=== PATIENT | female | born 1985 | race Caucasian/White ===

== ENCOUNTER 2022-07-12 07:44 | Emergency (ER) | payer BC, MEDICARE, MEDICAID, SELFPAY ==
--- NOTE | ~2022-07-12 | XR_ITS ---
Right Shoulder Technique: AP and scapular Y views were obtained. Clinical History: Pain Findings: No fracture or dislocation is seen. Osseous alignment is anatomic. The glenohumeral and acr omioclavicular joint spaces are preserved. Soft tissues are unremarkable. Impression: Unremarkable right shoulder radiographs. Reviewed, dictated and finalized at [facility]. 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
[2022-07-12 07:48] VITALS: BP 111/88; PULSE 108; RESP 16; TEMP 36.4; O2SAT 96
--- NOTE | 2022-07-12 08:57 | ED.GENADULT ---
HPI - General Adult General Chief complaint: Extremity Injury, Upper Stated complaint: right arm pain Time Seen by Provider: 07/12/22 07:55 History of Present Illness HPI narrative: 36-year-old female presenting the emergency department for evaluation of right shoulder pain. Patient states that she works at [employer] and does heavy lifting. Patient reports a few days ago she was having some right shoulder pain and the pain has persisted. Patient reports anterior and posterior right shoulder pain that is worsened with range of motion of her shoulder. Patient states she has increased pain when attempting to lift her right arm over her head. Patient denies any specific incident of injury. Related Data Allergies Allergy/AdvReac Type Severity Reaction Status Date / Time No Known Allergies Allergy Verified 02/13/22 14:30 Review of Systems Review of Systems: CONSTITUTIONAL: Denies fever, chills, or sweats. EYES: Denies visual changes, redness, or discharge. ENT: Denies rhinorrhea, congestion, sore throat, or otalgia. CARDIOVASCULAR: Denies chest pain, palpitations, or edema. RESPIRATORY: Denies cough or dyspnea. GASTROINTESTINAL: Denies abdominal pain, nausea, vomiting, or diarrhea. GENITOURINARY: Denies dysuria or hematuria. SKIN: Denies rash or itching. MUSCULOSKELETAL: See HPI NEUROLOGIC: Denies headache, numbness, or weakness. PMFSH Past Medical History Medical History Acute myeloid leukemia in remission Anxiety Current moderate episode of major depressive disorder without prior episode Hyperlipidemia Mood disorder Tobacco abuse Type 2 diabetes mellitus without complication, without long-term current use of insulin Family History Family History Mother Family history of mental disorder Depression Hypertension Grandparent Cerebrovascular accident Family history of lung cancer Social History Social History Years smoked: 18 Smoking status: Current every day smoker Tobacco type: e-cigarettes/vaping Second hand tobacco smoke exposure: No Alcohol intake: never Substance use: never Substance use type: does not use Exam Narrative: APPEARANCE: Well appearing, no pain, no distress, well-nourished. HEAD: normocephalic, atraumatic. EYES: PERRLA/EOMI, conjunctivae clear. NOSE: Normal no drainage NECK: Supple. No adenopathy, no masses. RESPIRATORY: Airway patent, respirations nonlabored. Clear to auscultation bilaterally, no rales, rhonchi, wheezing. CARDIOVASCULAR: Regular rate and rhythm without murmurs rubs or gallops. ABDOMINAL: Soft, nontender, nondistended, normal bowel sounds MUSCULOSKELETAL: Moves all extremities. Decreased range of motion of right shoulder with active movement, normal range of motion with passive NEURO: Alert. Cranial nerves II through XII intact. Grossly intact SKIN: Warm, dry. Normal Color Course Course Emergency Course: 36-year-old female with right shoulder injury. Patient's job is consistent with a shoulder strain. X-ray shows no acute fracture or dislocation. Patient was advised to take Tylenol and ibuprofen for pain control. Patient was also encouraged of close follow-up with her primary care physician for additional outpatient testing such as an MRI to evaluate for rotator cuff injury. All question concerns were addressed. Patient was comfortable to plan for discharge and close follow-up. Vital Signs Vital signs: Vital Signs Temperature 97.6 F 07/12/22 07:48 Pulse Rate 108 H 07/12/22 07:48 Respiratory Rate 16 07/12/22 07:48 Blood Pressure 111/88 07/12/22 07:48 Pulse Oximetry 96 07/12/22 07:48 Temperature 97.6 F 07/12/22 07:48 Pulse Rate 94 07/12/22 10:11 Respiratory Rate 16 07/12/22 10:11 Blood Pressure 101/86 07/12/22 10:11 Pulse Oximetry 97 07/12/22 1
[2022-07-12 10:11] VITALS: BP 101/86; PULSE 94; RESP 16; O2SAT 97
== END 2022-07-12 10:12 | disposition home or self-care (01) ==
PROVIDERS: Emergency Provider Emergency Medicine; PCP Family Medicine
DX: S46.911A Strain of unspecified muscle, fascia and tendon at shoulder and upper arm level, right arm, initial encounter (principal); F17.210 Nicotine dependence, cigarettes, uncomplicated; F41.9 Anxiety disorder, unspecified; F32.A Depression, unspecified; E78.5 Hyperlipidemia, unspecified; E11.9 Type 2 diabetes mellitus without complications; X50.0XXA Overexertion from strenuous movement or load, initial encounter
CPT/HCPCS: 73030; 99283

== ENCOUNTER 2022-12-12 08:00 | Outpatient (RCR) | payer BC, MEDICARE, SELFPAY ==
[2022-12-12 08:06] VITALS: BMI 32.1
[2022-12-12 09:14] VITALS: BMI 32.1
== END 2023-03-03 10:22 | disposition home or self-care (01) ==
LOC: ANHDMC 08:00
PROVIDERS: PCP Family Medicine; Visit Provider Internal Medicine
DX: E11.9 Type 2 diabetes mellitus without complications (principal); Z71.3 Dietary counseling and surveillance
CPT/HCPCS: 97802

== ENCOUNTER 2022-12-23 09:15 | Outpatient (RCR) | payer BC, MEDICARE, SELFPAY | END 2023-02-24 09:50 | disposition home or self-care (01) | LOC: ANHDMC 09:15 | PROVIDERS: PCP Family Medicine; Visit Provider Internal Medicine | DX: E11.65 Type 2 diabetes mellitus with hyperglycemia (principal); Z71.89 Other specified counseling | CPT/HCPCS: G0108 ==

== ENCOUNTER 2023-01-01 09:55 | Outpatient (CLI) | payer BC, MEDICARE, SELFPAY ==
[2023-01-01 10:58] LABS: Influenza A QL RT-PCR Negative (Negative); Influenza B QL RT-PCR Negative (Negative); RSV RNA, RT-PCR Negative (Negative); SARS-CoV-2 RNA PCR Negative (Negative)
== END 2023-01-01 09:56 | disposition home or self-care (01) ==
PROVIDERS: PCP Family Medicine; Visit Provider Physician Assistant
DX: Z20.822 Contact with and (suspected) exposure to COVID-19 (principal)
CPT/HCPCS: 87637

== ENCOUNTER 2023-03-28 10:43 | Emergency (ER) | payer BC, MEDICARE, SELFPAY ==
[2023-03-28 10:54] VITALS: BP 118/79; PULSE 96; RESP 20; TEMP 36.4; O2SAT 96
--- NOTE | 2023-03-28 12:15 | ED.GENADULT ---
HPI - General Adult General Chief complaint: Unspecified Stated complaint: sore throat, head congestion,ear pain Time Seen by Provider: 03/28/23 11:19 Source: patient Mode of arrival: ambulatory Limitations: no limitations History of Present Illness HPI narrative: Patient is a 37-year-old female who presents to the ED with report of URI symptoms. Patient reports she has been ill for the last 2 weeks. She c/o bilateral ear pain/congestion, sinus pressure, rhinorrhea, nasal congestion, mild cough, body aches, L eye redness/drainage. Patient has previously been seen at an urgent care earlier this week, tested negative for COVID, influenza, strep throat. Prescribed amoxicillin for sinus infection. She has been taking this without relief. She has only tried Tylenol, has not tried anything further for her symptoms. Denies fever, difficulty breathing or feeling short of breath, chest pain, nausea, vomiting. Patient reports history of AML 9 years ago in remission. History of diabetes. She states she has not been taking her medications as usual these last few weeks d/t not feeling well. Related Data Home Medications Medication Instructions Recorded Confirmed insulin lispro-aabc 100 unit/mL 6 unit subcut TID 01/16/23 01/16/23 subcutaneous pen (Lyumjev KwikPen U-100 Insulin) Allergies Allergy/AdvReac Type Severity Reaction Status Date / Time No Known Allergies Allergy Verified 03/28/23 10:46 Review of Systems Review of Systems: CONSTITUTIONAL: Denies fever, chills, or sweats. ENT: See HPI CARDIOVASCULAR: Denies chest pain, palpitations, or edema. RESPIRATORY: See HPI GASTROINTESTINAL: Denies abdominal pain, nausea, vomiting. MUSCULOSKELETAL: Report myalgia. NEUROLOGIC: Denies headache, numbness, or weakness. All systems reviewed & are unremarkable except as noted in HPI and below PMFSH Past Medical History Medical History Acute myeloid leukemia in remission Anxiety Chronic headaches Claustrophobia Coughing Current moderate episode of major depressive disorder without prior episode Depression Diarrhea Hoarseness Hyperlipidemia Light headedness Mood disorder Nausea Tendinitis of right rotator cuff Tobacco abuse Type 2 diabetes mellitus without complication, without long-term current use of insulin Wears glasses Family History Family History Mother Family history of mental disorder Depression Hypertension Grandparent Cerebrovascular accident Family history of lung cancer Other High cholesterol Social History Social History Smoking packs per day: 0.5 Smoking cigarettes per day: 10.0 Years smoked: 19 Smoking pack-years: 9.50 Smoking status: Current every day smoker Tobacco type: cigarettes and e-cigarettes/vaping Second hand tobacco smoke exposure: No Alcohol intake: never Substance use: current Substance use type: marijuana Lack of Transportation: No Lack of Food: Sometimes True Current Housing: I Have Housing Concerned About Future Housing: No Difficulty Paying Gas/Electric Bills: No Difficulty Paying for Meds: No Currently Unemployed: No Education: Associate Degree Difficulty w/ Childcare or Family Care: No Occupation/Education: other Gender identity (if verbalized by the patient): Female Spiritual care concerns: No Agree to blood products: Yes Exam Narrative: GENERAL: Mildly ill appearing, obese with BMI of 30.1, non-toxic, in no acute distress. HEAD: Normocephalic, atraumatic. EYES: Serous drainage noted salvador, L conjunctiva erythematous, R conjunctiva clear. No significant chemosis. PERRL/EOMI ENT: TMs bilaterally appear erythematous and bulging, R > L. No evidence of TM perforation. No swelling or erythema of EAC bilaterally. No drainage. Mucous memb
[2023-03-28] MEDS: IBUPROFEN 600 MG TABLET PO (12:33)
[2023-03-28] MEDS: PSEUDOEPHEDRINE HCL 30 MG TABLET 60 MG PO (12:33)
[2023-03-28] MEDS: ACETAMINOPHEN 500 MG TABLET 1000 MG PO (12:33)
[2023-03-28 12:40] LABS: Basophils Absolute Auto 0.1 K/mm3 (0.0-0.1); Basophils Percent Auto 0.7 % (0.2-1.2); Eosinophils Absolute Auto 0.3 K/mm3 (0-0.3); Eosinophils Percent Auto 2.2 % (0-4.4); Hematocrit 47.1 % (37.0-47.0); Hemoglobin 15.8 g/dL (12.0-15.0); Immature Granulocyte Absolute 0.06 K/mm3 (0.00-0.031); Immature Granulocyte Percent A 0.4 % (0-0.5); Lymphocytes Absolute Auto 4.02 K/mm3 (0.9-3.2); Lymphocytes Percent Auto 25.5 % (18.3-44.2); Mean Corpuscular HGB Conc 33.5 g/dl (32-36); Mean Corpuscular Hemoglobin 28.7 pg (26-34); Mean Corpuscular Volume 85.6 fl (80-100); Mean Platelet Volume 9.7 fl (7.4-10.4); Monocytes Absolute Auto 1.1 K/mm3 (0.1-0.6); Monocytes Percent Auto 6.9 % (2.6-8.5); Neutrophils Absolute Auto 10.1 K/mm3 (1.3-6.7); Neutrophils Percent Auto 64.3 % (45.5-73.1); Platelet Count Result 216 k/mm3 (150-375); Red Cell Distribution Width 13.6 % (11.5-14.5); White Blood Count 15.8 K/mm3 (4.5-10.0)
[2023-03-28 12:50] LABS: Alanine Aminotransferase 26 U/L (6-35); Albumin Level 4.3 g/dL (3.5-5.1); Alkaline Phosphatase 97 U/L (38-126); Anion Gap 11 mmol/L (8-16); Aspartate Amino Transferase 18 U/L (14-36); Bilirubin,Total 0.5 mg/dL (0.2-1.3); Blood Urea Nitrogen 5 mg/dL (7-17); Calcium 9.4 mg/dL (8.4-10.2); Carbon Dioxide 23 mmol/L (22-30); Chloride 106 mmol/L (98-107); Estimated CRCL calculation 157 ml/min; Estimated Glomerular Filt Rate > 60; Glucose 224 mg/dL (65-110); Potassium 3.9 mmol/L (3.4-5.0); Sodium 140 mmol/L (137-145)
== END 2023-03-28 13:24 | disposition home or self-care (01) ==
PROVIDERS: Emergency Provider Physician Assistant; PCP Family Medicine
DX: H66.93 Otitis media, unspecified, bilateral (principal); J06.9 Acute upper respiratory infection, unspecified; H10.9 Unspecified conjunctivitis; C92.01 Acute myeloblastic leukemia, in remission; E11.9 Type 2 diabetes mellitus without complications; E78.5 Hyperlipidemia, unspecified; F32.A Depression, unspecified; F41.9 Anxiety disorder, unspecified; F17.210 Nicotine dependence, cigarettes, uncomplicated; F17.290 Nicotine dependence, other tobacco product, uncomplicated; Z79.4 Long term (current) use of insulin; Z79.84 Long term (current) use of oral hypoglycemic drugs
CPT/HCPCS: 36415; 80053; 85025; 99283; A9270

== ENCOUNTER 2023-05-22 23:38 | Emergency (ER) | payer BC, MEDICARE, MEDICAID, SELFPAY ==
[2023-05-23] VITALS: BP 128/87; PULSE 110; RESP 18; TEMP 36.6; O2SAT 94
[2023-05-23 02:42] VITALS: BP 109/69; PULSE 89; RESP 21; TEMP 36.8; O2SAT 95
[2023-05-23 02:59] LABS: Basophils Absolute Auto 0.1 K/mm3 (0.0-0.1); Basophils Percent Auto 0.4 % (0.2-1.2); Eosinophils Absolute Auto 0.2 K/mm3 (0-0.3); Eosinophils Percent Auto 1.3 % (0-4.4); Hematocrit 46.7 % (37.0-47.0); Hemoglobin 15.5 g/dL (12.0-15.0); Immature Granulocyte Absolute 0.06 K/mm3 (0.00-0.031); Immature Granulocyte Percent A 0.4 % (0-0.5); Lymphocytes Absolute Auto 3.76 K/mm3 (0.9-3.2); Lymphocytes Percent Auto 22.9 % (18.3-44.2); Mean Corpuscular HGB Conc 33.2 g/dl (32-36); Mean Corpuscular Volume 87.3 fl (80-100); Mean Platelet Volume 9.9 fl (7.4-10.4); Monocytes Absolute Auto 1.1 K/mm3 (0.1-0.6); Monocytes Percent Auto 6.5 % (2.6-8.5); Neutrophils Absolute Auto 11.3 K/mm3 (1.3-6.7); Neutrophils Percent Auto 68.5 % (45.5-73.1); Platelet Count Result 218 k/mm3 (150-375); Red Blood Count 5.35 M/mm3 (4.2-5.4); Red Cell Distribution Width 14.1 % (11.5-14.5); White Blood Count 16.4 K/mm3 (4.5-10.0)
[2023-05-23 03:18] LABS: Alanine Aminotransferase 68 U/L (6-35); Albumin Level 4.3 g/dL (3.5-5.1); Alkaline Phosphatase 107 U/L (38-126); Anion Gap 11 mmol/L (8-16); Appearance Urine Turbid (Clear); Aspartate Amino Transferase 34 U/L (14-36); Bacteria Urine Rare /hpf; Bilirubin Urine 1+ (Negative); Bilirubin,Total 0.5 mg/dL (0.2-1.3); Blood Urea Nitrogen 13 mg/dL (7-17); Blood Urine Negative (Negative); Calcium 9.4 mg/dL (8.4-10.2); Carbon Dioxide 23 mmol/L (22-30); Chloride 106 mmol/L (98-107); Color Urine Dark Yellow (Yellow); Estimated CRCL calculation 132 ml/min; Estimated Glomerular Filt Rate > 60; Glucose 262 mg/dL (65-110); Glucose Urine UA 1+ mg/dL (Negative); Ketones Urine Trace mg/dL (Negative); Leukocyte Esterase Ur Negative LEU/UL (Negative); Lipase 63 U/L (23-300); Nitrate Urine Negative (Negative); Potassium 4.1 mmol/L (3.4-5.0); Protein Urine 1+ mg/dL (Negative); RBC Urine 0-2 /hpf (0-2); Sodium 140 mmol/L (137-145); Specific Grav Ur 1.031 (1.001-1.035); Squamous Epithelial Cell Urine Moderate /hpf (Few)
[2023-05-23 03:23] LABS: Influenza A QL RT-PCR Negative (Negative); Influenza B QL RT-PCR Negative (Negative); RSV RNA, RT-PCR Negative (Negative); SARS-CoV-2 RNA PCR Negative (Negative)
[2023-05-23 03:28] LABS: Add Urine Microscopic? YES
--- NOTE | 2023-05-23 03:29 | ED.NAVMDI ---
HPI - Nausea/Vomiting/Diarrhea General Chief complaint: Nausea/Vomiting/Diarrhea Stated complaint: vomiting Time Seen by Provider: 05/23/23 03:08 Source: patient Limitations: no limitations History of Present Illness HPI Narrative: Patient is a 37-year-old female presents to the emergency department complaining of nausea and vomiting for the past 2-3 days with approximately 3 episodes total negative. Nonbloody and food like contents with some stomach acid. Patient is to 45 days of diarrhea that have been watery and brown. Patient denies any abdominal pain, chest pain, cough, fever, melena, hematochezia, dysuria, hematuria, recent injuries, recent illness, sick contacts. Patient admits to a couple days of rhinorrhea and nasal congestion and wants to get checked out for the upper respiratory viruses. Patient denies any new or change medications. Related Data Home Medications Medication Instructions Recorded Confirmed insulin lispro-aabc 100 unit/mL 6 unit subcut TID 01/16/23 05/15/23 subcutaneous pen (Lyumjev KwikPen U-100 Insulin) Allergies Allergy/AdvReac Type Severity Reaction Status Date / Time No Known Allergies Allergy Verified 05/15/23 09:40 Review of Systems Review of Systems: A 10 system review of systems was completed on the patient and is negative except for what is stated in the HPI. Nursing and ancillary documentation was reviewed. [facility] Past Medical History Medical History Acute myeloid leukemia in remission Anxiety Chronic headaches Claustrophobia Coughing Current moderate episode of major depressive disorder without prior episode Depression Diarrhea Hoarseness Hyperlipidemia Light headedness Mood disorder Nausea Tendinitis of right rotator cuff Tobacco abuse Type 2 diabetes mellitus without complication, without long-term current use of insulin Wears glasses Family History Family History Mother Family history of mental disorder Depression Hypertension Grandparent Cerebrovascular accident Family history of lung cancer Other High cholesterol Social History Social History Smoking packs per day: 0.5 Smoking cigarettes per day: 10.0 Years smoked: 19 Smoking pack-years: 9.50 Smoking status: Current every day smoker Tobacco type: cigarettes and e-cigarettes/vaping Second hand tobacco smoke exposure: No Alcohol intake: never Substance use: current Substance use type: marijuana Lack of Transportation: No Lack of Food: Sometimes True Current Housing: I Have Housing Concerned About Future Housing: No Difficulty Paying Gas/Electric Bills: No Difficulty Paying for Meds: No Currently Unemployed: No Education: Associate Degree Difficulty w/ Childcare or Family Care: No Occupation/Education: other Gender identity (if verbalized by the patient): Female Spiritual care concerns: No Agree to blood products: Yes Comments At time of signature, I have reviewed and agree with nursing past medical, surgical, social and family history unless otherwise noted. Please see the nursing chart for further information. There is no relevant family history pertinent to the presenting complaint. Exam Narrative: CONST: No acute distress. Well nourished. HENMT: Head is normocephalic and atraumatic. Moist mucous membranes. No posterior oropharynx erythema. EYES: No conjunctival icterus, injection, or pallor. PERRL. NECK: No meningeal signs. RESP: Able to speak in full sentences. Normal respiratory effort. CTAB. CARDIO: Regular rate. Regular rhythm. 2+ DP and radial pulses bilaterally. GI: Nondistended. No tenderness to palpation. Soft. Negative Metcalf sign. No palpable masses or hernias. : No CVA tenderness to palpation. SKIN: No rashes or lesio
== END 2023-05-23 03:50 | disposition home or self-care (01) ==
PROVIDERS: Emergency Provider Student in an Organized Health Care Education/Training Program; PCP Family Medicine
DX: K52.9 Noninfective gastroenteritis and colitis, unspecified (principal); Z20.822 Contact with and (suspected) exposure to COVID-19; C92.91 Myeloid leukemia, unspecified in remission; E11.9 Type 2 diabetes mellitus without complications; E78.5 Hyperlipidemia, unspecified; F17.210 Nicotine dependence, cigarettes, uncomplicated; F17.290 Nicotine dependence, other tobacco product, uncomplicated; F41.9 Anxiety disorder, unspecified; F32.A Depression, unspecified; F39 Unspecified mood [affective] disorder; Z79.4 Long term (current) use of insulin; Z79.84 Long term (current) use of oral hypoglycemic drugs
CPT/HCPCS: 36415; 80053; 81001; 81025; 83690; 85025; 87086; 87088; 87637; 99283

== ENCOUNTER 2023-06-23 19:45 | Emergency (ER) | payer BC, MEDICARE, MEDICAID, SELFPAY ==
--- NOTE | ~2023-06-23 | XR_ITS ---
Clinical Indication: Cough PA and lateral views of the chest: Comparison: 03/08/2004 Findings: The lungs are clear, without evidence of focal consolidation or pleural effusion. Cardiome diastinal silhouette is within normal limits. Bones and soft tissues are unremarkable. Impression: Normal chest. Reviewed, dictated and finalized at [facility]. RESS INSPECTOR Impression: Normal chest.
[2023-06-23 20:20] VITALS: BP 107/81; PULSE 108; RESP 16; TEMP 36.6; O2SAT 96
[2023-06-24] VITALS (9 sets, daily range): BP systolic 90–116; BP diastolic 61–79; PULSE 82–120; RESP 17–20; TEMP 37; O2SAT 94–99
[2023-06-24 01:11] LABS: Influenza A QL RT-PCR Negative (Negative); Influenza B QL RT-PCR Negative (Negative); RSV RNA, RT-PCR Negative (Negative); SARS-CoV-2 RNA PCR Negative (Negative)
--- NOTE | 2023-06-24 01:18 | ECG_ITS ---
Measurements Intervals Munger Rate: 101 P: 46 PA: 143 QRS: 32 QRSD: 93 T: 58 QT: 334 QTc: 434 Interpretive Statements SINUS TACHYCARDIA NO PREVIOUS ECG AVAILABLE FOR COMPARISON Electronically Signed On 06-24-2023 15:24:12 [employer] by Nini Rodriguez M.D.
--- NOTE | 2023-06-24 01:19 | ED.DIZZY ---
HPI - Dizziness General Chief Complaint: Dizziness Stated Complaint: dizzy/doesnt feel good Time Seen by Provider: 06/24/23 00:47 History of Present Illness HPI Narrative: 37-year-old female with history of type 2 diabetes, hyperlipidemia, remote history of AML in remission reports for evaluation for flu-like symptoms x1 week. Patient is reporting nasal congestion, headache, dizziness, otalgia, sore throat, cough, dyspnea and diarrhea. Denies known fevers, urinary complaints, abdominal pain, chest pain. Reports decreased p.o. intake secondary to not feeling well. Related Data Home Medications Medication Instructions Recorded Confirmed insulin lispro-aabc 100 unit/mL 6 unit subcut TID 01/16/23 05/15/23 subcutaneous pen (Lyumjev KwikPen U-100 Insulin) Allergies Allergy/AdvReac Type Severity Reaction Status Date / Time No Known Allergies Allergy Verified 05/15/23 09:40 Review of Systems Review of Systems: CONSTITUTIONAL: Denies fever, chills, or sweats. EYES: Denies visual changes, redness, or discharge. ENT: Denies rhinorrhea, congestion, sore throat, or otalgia. CARDIOVASCULAR: Denies chest pain, palpitations, or edema. RESPIRATORY: See HPI GASTROINTESTINAL: See HPI GENITOURINARY: Denies dysuria or hematuria. SKIN: Denies rash or itching. MUSCULOSKELETAL: Denies back pain, joint pain, or myalgia. NEUROLOGIC: Denies headache, numbness, or weakness. PSYCHIATRIC: Denies anxiety or depression. [facility] Past Medical History Medical History Acute myeloid leukemia in remission Anxiety Chronic headaches Claustrophobia Coughing Current moderate episode of major depressive disorder without prior episode Depression Diarrhea Hoarseness Hyperlipidemia Light headedness Mood disorder Nausea Tendinitis of right rotator cuff Tobacco abuse Type 2 diabetes mellitus without complication, without long-term current use of insulin Wears glasses Family History Family History Mother Family history of mental disorder Depression Hypertension Grandparent Cerebrovascular accident Family history of lung cancer Other High cholesterol Social History Social History Smoking packs per day: 0.5 Smoking cigarettes per day: 10.0 Years smoked: 19 Smoking pack-years: 9.50 Smoking status: Current every day smoker Tobacco type: cigarettes and e-cigarettes/vaping Second hand tobacco smoke exposure: No Alcohol intake: never Substance use: current Substance use type: marijuana Lack of Transportation: No Lack of Food: Sometimes True Current Housing: I Have Housing Concerned About Future Housing: No Difficulty Paying Gas/Electric Bills: No Difficulty Paying for Meds: No Currently Unemployed: No Education: Associate Degree Difficulty w/ Childcare or Family Care: No Occupation/Education: other Gender identity (if verbalized by the patient): Female Spiritual care concerns: No Agree to blood products: Yes Exam Narrative: GENERAL: Well-appearing, well-nourished, and in no acute distress. HEAD: Normocephalic, atraumatic. EYES: PERRLA and EOMI. ENT: Nares clear, no rhinorrhea or epistaxis. Mucous membranes dry NECK: Supple. CHEST: Clear to auscultation. No respiratory distress. HEART: Regular rate and rhythm. No murmur heard. Normal peripheral pulses. ABDOMEN: Soft, nontender, nondistended, normal active bowel sounds. No guarding, rebound or rigidity. EXTREMITIES: Normal range of motion. No edema. SKIN: Warm, dry, no rash. NEURO: No focal deficits. Alert and oriented x3 Course Vital Signs Vital signs: Vital Signs Temperature 98 F 06/23/23 20:20 Pulse Rate 108 H 06/23/23 20:20 Respiratory Rate 16 06/23/23 20:20 Blood Pressure 107/81 06/23/23 20:20 Pulse Oximetry 96 06/23/23 2
[2023-06-24] MEDS: SODIUM CHLORIDE 0.9% IV 1,000 ML 999 ML IV CONT ×2 (01:40→02:51)
[2023-06-24 01:41] LABS: Basophils Absolute Auto 0.1 K/mm3 (0.0-0.1); Basophils Percent Auto 0.5 % (0.2-1.2); Eosinophils Absolute Auto 0.2 K/mm3 (0-0.3); Eosinophils Percent Auto 0.9 % (0-4.4); Hematocrit 44.9 % (37.0-47.0); Hemoglobin 15.2 g/dL (12.0-15.0); Immature Granulocyte Absolute 0.06 K/mm3 (0.00-0.031); Immature Granulocyte Percent A 0.3 % (0-0.5); Lymphocytes Absolute Auto 5.46 K/mm3 (0.9-3.2); Lymphocytes Percent Auto 27.5 % (18.3-44.2); Mean Corpuscular HGB Conc 33.9 g/dl (32-36); Mean Corpuscular Hemoglobin 28.8 pg (26-34); Mean Platelet Volume 9.5 fl (7.4-10.4); Monocytes Absolute Auto 1.7 K/mm3 (0.1-0.6); Monocytes Percent Auto 8.4 % (2.6-8.5); Neutrophils Absolute Auto 12.4 K/mm3 (1.3-6.7); Neutrophils Percent Auto 62.4 % (45.5-73.1); Platelet Count Result 210 k/mm3 (150-375); Red Blood Count 5.28 M/mm3 (4.2-5.4); Red Cell Distribution Width 13.6 % (11.5-14.5); White Blood Count 19.9 K/mm3 (4.5-10.0)
[2023-06-24] MEDS: KETOROLAC 30 MG/ML VIAL (*BKC) IV PUSH (01:41)
[2023-06-24] MEDS: diphenhydrAMINE HCl INJ 50 MG/ML VIAL 25 MG IV PUSH (01:42)
[2023-06-24] MEDS: PROCHLORPERAZINE EDISYLATE 10 MG/2 ML VIAL IV PUSH (01:42)
[2023-06-24 01:54] LABS: Alanine Aminotransferase 26 U/L (6-35); Albumin Level 4.1 g/dL (3.5-5.1); Alkaline Phosphatase 88 U/L (38-126); Anion Gap 6 mmol/L (8-16); Aspartate Amino Transferase 18 U/L (14-36); Bilirubin,Total 0.6 mg/dL (0.2-1.3); Blood Urea Nitrogen 10 mg/dL (7-17); Calcium 9.3 mg/dL (8.4-10.2); Carbon Dioxide 23 mmol/L (22-30); Chloride 106 mmol/L (98-107); Estimated CRCL calculation 111 ml/min; Estimated Glomerular Filt Rate > 60; Glucose 160 mg/dL (65-110); Magnesium 1.5 mg/dL (1.6-2.3); Potassium 3.2 mmol/L (3.4-5.0); Sodium 135 mmol/L (137-145)
--- NOTE | 2023-06-24 02:01 | PC.NURSE ---
Patient still unable to urinate. Patient politely denied straight catheterization for urine specimen.
[2023-06-24 02:05] LABS: Strep Group A RT-PCR NOT DETECTED (Negative)
[2023-06-24] MEDS: POTASSIUM CHLORIDE 20 MEQ PACKET (FOR LIQUID) 40 MEQ PO (02:06)
[2023-06-24] MEDS: MAGNESIUM SULF 2 GM/WATER 50ML 2 GM/50 ML BAG IVPB (02:07)
[2023-06-24 02:36] LABS: D Dimer 0.33 ug/mL (<0.48)
[2023-06-24 02:39] LABS: Monoscreen Negative (Negative); Negative Monotest Control Negative (Negative); Positive Monotest Control Positive (Positive)
[2023-06-24 03:54] LABS: Appearance Urine Cloudy (Clear); Bacteria Urine 1+ /hpf; Bilirubin Urine Negative (Negative); Blood Urine Negative (Negative); Color Urine Dark Yellow (Yellow); Glucose Urine UA Trace mg/dL (Negative); Ketones Urine Trace mg/dL (Negative); Leukocyte Esterase Ur Negative LEU/UL (Negative); Need Manual Microscopic Reviewed; Nitrate Urine Negative (Negative); Non Pathogenic Casts 0-2; Protein Urine Trace mg/dL (Negative); RBC Urine 0-2 /hpf (0-2); Specific Grav Ur 1.031 (1.001-1.035); Squamous Epithelial Cell Urine Many /hpf (Few); Urobilinogen Urine 0.2 mg/dL (<2.0)
[2023-06-24 03:57] LABS: Add Urine Microscopic? YES
[2023-06-24 04:25] LABS: NT Pro B Type Natriuretic Pept 93 pg/mL (19.9-100)
[2023-06-24] MEDS: AMOXICILLIN/CLAVULANATE K 875-125 MG TAB 1 TABLET PO (04:52)
[2023-06-24] MEDS: AZITHROMYCIN 250 MG TABLET 500 MG PO (04:52)
== END 2023-06-24 04:55 | disposition home or self-care (01) ==
PROVIDERS: Emergency Medicine; Emergency Provider Physician Assistant; PCP Family Medicine
DX: E86.0 Dehydration (principal); E87.6 Hypokalemia; E83.42 Hypomagnesemia; R06.00 Dyspnea, unspecified; Z20.822 Contact with and (suspected) exposure to COVID-19; E11.9 Type 2 diabetes mellitus without complications; E78.5 Hyperlipidemia, unspecified; C92.01 Acute myeloblastic leukemia, in remission; F41.9 Anxiety disorder, unspecified; F32.A Depression, unspecified; F39 Unspecified mood [affective] disorder; F17.210 Nicotine dependence, cigarettes, uncomplicated; F17.290 Nicotine dependence, other tobacco product, uncomplicated; Z79.4 Long term (current) use of insulin; Z79.84 Long term (current) use of oral hypoglycemic drugs
CPT/HCPCS: 36415; 71046; 80053; 81001; 81025; 83735; 83880; 85025; 85380; 86308; 87086; 87637; 87651; 93005; 96361; 96365; 96366; 96375; 99284; A9270; J0780; J1200; J1885; J3475; J7030

== ENCOUNTER 2023-06-25 22:41 | Emergency (ER) | payer BC, MEDICARE, MEDICAID, SELFPAY ==
[2023-06-25 22:42] VITALS: BP 118/68; PULSE 127; RESP 18; TEMP 36.4; O2SAT 96
[2023-06-25 23:02] VITALS: PULSE 122; RESP 15; TEMP 36.5; O2SAT 95
[2023-06-25 23:04] VITALS: O2SAT 93
--- NOTE | 2023-06-25 23:41 | ED.FEVER ---
HPI - Fever General Chief Complaint: Fever Stated Complaint: fever, recent pneumonia dx Time Seen by Provider: 06/25/23 23:38 Source: patient Mode of arrival: ambulatory Limitations: no limitations History of Present Illness HPI Narrative: 37 yo presents with report of a fever of 100.6F measured under the tongue. She had earlier had a temperature of 99F. Earlier this morning she took Nyquil that contained acetaminophen. She has not taken any further anti-pyretic after the fever. She reports directly to the ED because she had been told previously to do so. She does have a history of leukemia diagnosed 10 years ago but in remission for the past 9 years. No longer follows with an oncologist. She was recently diagnosed with dehydration and pneumonia on 06/24. She has been taking her course of antibiotics without missing doses and resting, maintaining her hydration. No new symptoms other than fatigue. Related Data Home Medications Medication Instructions Recorded Confirmed insulin lispro-aabc 100 unit/mL 6 unit subcut TID 01/16/23 05/15/23 subcutaneous pen (Lyumjev KwikPen U-100 Insulin) Allergies Allergy/AdvReac Type Severity Reaction Status Date / Time No Known Allergies Allergy Verified 05/15/23 09:40 [facility] Past Medical History Medical History Acute myeloid leukemia in remission Anxiety Chronic headaches Claustrophobia Coughing Current moderate episode of major depressive disorder without prior episode Depression Diarrhea Hoarseness Hyperlipidemia Light headedness Mood disorder Nausea Tendinitis of right rotator cuff Tobacco abuse Type 2 diabetes mellitus without complication, without long-term current use of insulin Wears glasses Family History Family History Mother Family history of mental disorder Depression Hypertension Grandparent Cerebrovascular accident Family history of lung cancer Other High cholesterol Social History Social History Smoking packs per day: 0.5 Smoking cigarettes per day: 10.0 Years smoked: 19 Smoking pack-years: 9.50 Smoking status: Current every day smoker Tobacco type: cigarettes and e-cigarettes/vaping Second hand tobacco smoke exposure: No Alcohol intake: never Substance use: current Substance use type: marijuana Lack of Transportation: No Lack of Food: Sometimes True Current Housing: I Have Housing Concerned About Future Housing: No Difficulty Paying Gas/Electric Bills: No Difficulty Paying for Meds: No Currently Unemployed: No Education: Associate Degree Difficulty w/ Childcare or Family Care: No Occupation/Education: other Gender identity (if verbalized by the patient): Female Spiritual care concerns: No Agree to blood products: Yes Exam Narrative: GENERAL: Well-appearing, well-nourished, and in no acute distress. HEAD: Normocephalic, atraumatic. EYES: Non injected, non icteric ENT: Nares clear, no rhinorrhea or epistaxis. Bilateral pinna slightly erythematous. NECK: Supple. No meningismus. CHEST: Speaking in complete sentences. No respiratory distress. HEART: Tachycardic rate and rhythm. . ABDOMEN: Soft, nondistended. EXTREMITIES: Normal range of motion. No edema. SKIN: Warm, dry, no rash. NEURO: No focal deficits. Alert and oriented x3. PSYCH: Normal mood and affect. Course Vital Signs Vital signs: Vital Signs Temperature 97.5 F L 06/25/23 22:42 Pulse Rate 127 H 06/25/23 22:42 Respiratory Rate 18 06/25/23 22:42 Blood Pressure 118/68 06/25/23 22:42 Pulse Oximetry 96 06/25/23 22:42 Oxygen Delivery Room Air 06/25/23 22:42 Temperature 97.7 F 06/26/23 00:09 Pulse Rate 104 H 06/26/23 00:09 Respiratory Rate 16 06/26/23 00:09 Blood Pressure 110/72 06/26/23 00:09 Pulse Oximetry 96
[2023-06-25] MEDS: ACETAMINOPHEN 500 MG TABLET 1000 MG PO (23:57)
[2023-06-26 00:09] VITALS: BP 110/72; PULSE 104; RESP 16; TEMP 36.5; O2SAT 96
== END 2023-06-26 00:10 | disposition home or self-care (01) ==
LOC: ANHED 06-26 00:02
PROVIDERS: Emergency Provider Student in an Organized Health Care Education/Training Program; PCP Family Medicine
DX: R50.9 Fever, unspecified (principal); F17.210 Nicotine dependence, cigarettes, uncomplicated; F41.9 Anxiety disorder, unspecified; E11.9 Type 2 diabetes mellitus without complications; F32.A Depression, unspecified; Z79.4 Long term (current) use of insulin
CPT/HCPCS: 99282; A9270

== ENCOUNTER 2024-05-26 10:38 | Outpatient (CLI) | payer MEDICARE, SELFPAY ==
[2024-05-26 20:26] LABS: Creatinine Urine 68.3 mg/dL
[2024-05-26 20:30] LABS: MALB Creatinine Ratio 14.5 mg/g (0-30); Microalbumin Urine Random 9.9 mg/L (0-16.7)
[2024-05-26 20:45] LABS: LDL Cholesterol Direct 88 mg/dL
[2024-05-26 20:57] LABS: Alanine Aminotransferase 74 U/L (6-35); Albumin Level 4.1 g/dL (3.5-5.1); Alkaline Phosphatase 125 U/L (38-126); Anion Gap 13 mmol/L (4-12); Aspartate Amino Transferase 54 U/L (14-36); Bilirubin,Total 0.5 mg/dL (0.2-1.3); Blood Urea Nitrogen 12 mg/dL (7-17); Calcium 9.3 mg/dL (8.4-10.2); Carbon Dioxide 21 mmol/L (22-30); Chloride 104 mmol/L (98-107); Cholesterol 281 mg/dL (0-200); Estimated Glomerular Filt Rate > 60; Glucose 304 mg/dL (65-110); Potassium 4.5 mmol/L (3.4-5.0); Sodium 138 mmol/L (137-145)
[2024-05-26 20:58] LABS: Triglycerides 1445 mg/dL (<150)
[2024-05-26 21:16] LABS: Hemoglobin A1C 12.6 % (<5.7)
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
--- OUTSIDE RECORDS SUMMARY | 2024-05-27 23:18 | XMS_ITS | Clinical Summary ---
Author Organization [facility] Address [address] [place] [address] Care Team Providers Care Ems Director Name Role Phone Fawad Ruffin MD Unavailable [phone] Tyrell Diaz Unavailable Unavailab Mally Edward MD Unavailable [phone] Angelica Watson MD Unavailable [phone] Natalie Tian RN Unavailable UnavailLatha Box MARKING DEVICES ASSEMBLER-COMPUTER LAB PARA PROFESSIONAL Unavailable [phone] Leena Borden HOME APPLIANCE WASHING MACHINE MECHANIC Unavailable Unavailable Flaquita Manning PharmD Unavailable Unavaila Carolina Cheng Unavailable Yana Lelo Lira MD Primary Care Provider [phone] Tarsha Cha MARKING DEVICES ASSEMBLER-GM Unavailable [phone] Socorro Galdamez MARKING DEVICES ASSEMBLER-GM Unavailable [phone] Jennifer Fung MD Unavailable Source Comments [facility],non-owned Affiliates and Associated Physician Practices is amultiple site organization consisting of ambulatory clinics and hospital sitesin [place], [place], [place] and [place]. 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 Early menopause occurring in patient [...] Conj 04/19/2015,02/08/2015, TDAP (7yrs+) 10/30/2015,08/24/2015,06/21/2015 VARICELLA 09/11/2016,08/15/2016 Family History Medical History Relation Name Comments CAD (Coronary Artery Disease) Maternal Grandfather Cancer Maternal Grandfather lung Hypertension Mother Diabetes Neg Hx Thyroid Disease Neg Hx Relation Name Status Comments Maternal Grandfather Mother Social History Tobacco Use Types Packs/Day Years [...] Mass Index 31.53 01/27/2022 3:14 PM CDT Plan of Treatment Health Maintenance Due Date Last Done Comments COVID-19 VACCINE (#1) 07/23/1992 ZOSTER VACCINE (1 of 2) 07/23/2006 DIABETES RETINOPATHY SCREENING 08/04/2017 DIABETES-FOOT EXAM WITH MONOFILAMENT 08/04/2017 PAP SMEAR 07/13/2018 07/14/2015 PNEUMOCOCCAL VACCINE (3 of 3 - PPSV23, PCV20 or PCV21) 06/21/2020 06/21/2015, 04/19/2015, 02/08/2015, Additional history exists MAMMOGRAM 07/17/2021 07/17/2020 DIABETES-HGB A1C 04/29/2022 01/28/2022, , 06/27/2020, Additional history exists DIABETES-SERUM CREATININE 01/28/20232021, 01/27/2022, 11/17/2020, Additional history exists BONE DENSITY TESTING 08/12/2023 08/11/2018, 08/01/2016, 06/07/2015, Additional history exists INFLUENZA VACCINE (#1) 2024 2, 06/29/2019, 05/12/2018, Additional history exists DEPRESSION SCREENING 05/05/2024 DIABETES - URINE PROTEIN SCREENING 05/05/2024 DTAP/TDAP/TD VACCINES (4 - Td or Tdap) 10/29/2025 10/30/2015, 08/24/2015, 06/21/2015 HEPATITIS C SCREENING Completed 03/29/2015 , 01/24/2015, 09/28/2014, Additional history exists HIV SCREENING Completed 04/14/2015, 04/07/2014 HIB VACCINE Aged Out 04/19/2015, 11/2014, 12/10/2014 No longer eligible based on patient's age to complete this topic HEPATITIS B VACCINE Completed 12/28/2015, 08/24/2015, 06/21/2015 MENINGOCOCCAL VACCINE Aged Out 07/22/2017 No [facility] eligible based on patient's age to complete this topic HPV VACCINE Aged Out No longer eligi ble based on patient's age to complete this topic MENINGOCOCCAL (Group B) VACCINE Aged Out No longer eligible based on patient's age to complete this topic Procedures Procedure Name Priority Date/Time Associated Diagnosis Comments BASIC METABOLIC PANEL (CALCIUM TOTAL) AM Draw 01/28/2022 12:04 AM CDT Cough HEMOGLOBIN A1C Routine 01/28/2022 12:04 AM CDT Type 2 diabetes mellitus with diabetic chronic kidney disease, unspecified CKD stage, unspecified whether long-term insulin use (HCC) MAMMO BILAT SCREENING Routine 07/17/2020 8:20 AM CDT Visit for screening mammogram DEXA BONE DENSITY AXIAL SKELETON Routine 08/11/2018 1:28 PM CDT 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) PAP LB RFLX HPV ASCU Routine 07/14/2015 3:26 PM [facility]ER CARVER Abnormal cervical Papanicolaou smear, unspecified abnormal pap finding HIV-1 HIV-2 ANTIGEN/ANTIBODY Routine 04/14/2015 1:14 AM [facility] CAR[facility] HEPATITIS C RNA QUANTITATIVE Routine 03/29/2015 11:23 AM LEATHER CARVER from Last 3 Months or Most Recently Relevant to Health Maintenance Results * (ABNORMAL) HEMOGLOBIN A1C (01/28/2022 12:04 AM CDT) Hemoglobin A1c 10.5(H) <=5.6 % 01/28/2022 8:48 AM CDT [facility] Estimated Average Glucose 255 mg/dL 01/28/2022 8:48 AM CDT [facility] Comment: HbA1c Interpretation: Normal : < 5.7% Pre-diabetes: 5.7-6.4% Diabetes: Equal to or greater than 6.5% Test results diagnostic of diabetes should be repeated for confirmation. Treatment target values recommended by ADA and other clinical organizations should be used to evaluate metabolic control in patients. Reference: [place] [employer], Standards of Care in Diabetes -2020 In patients 70 years and older consider HbA1c target range of 7.0-7.5% (Reference: Mejia Herring et al. JAMDA. 2012) The Sebia assay for the measurement of HbA1c is a National Glycohemoglobin Standardization Program (NGSP) certified method. Blood BLOOD SPECIMEN / Unknown Lab Venipuncture / Unknown 01/28/2022 12:04 AM CDT 01/28/2022 3:25 AM CDT Bandar Vaca PA-C LAB - CHEMISTRY O RDERABLES [facility] [address] [place] [address], [facility] [phone] * (ABNORMAL) BASIC METABOLIC PANEL (CALCIUM TOTAL) (01/28/2022 12:04 AM CDT) Pathologist [facility] BUN 13 7 - 26 mg/dL 01/28/2022 3:52 AM CDT [facility] Creatinine 0.69 0.56 - 0.96 mg/dL 01/28/2022 3:52 AM CDT [facility] Sodium 138 136 - 145 mmol/L 01/28/2022 3:52 AM CDT [facility] Potassium 4.9(H) 3.5 - 4.5 mmol/L 01/28/2022 3:52 AM [facility] Chloride 99 98 - 107 mmol/L 01/28/2022 3:52 AM [facility] CO2 23 22 - 29 mmol/L 01/28/2022 3:52 AM [facility] Glucose 343(H) 70 - 115 mg/dL 01/28/2022 3:52 AM [facility] Calcium 8.5 8.4 - 10.2 mg/dL 01/28/2022 3:52 AM [facility] Anion Gap 21(H) 8 - 18 01/28/2022 3:52 AM [facility] BUN/Creatinine Ratio 19 7 - 23 01/28/2022 3:52 AM [facility] Osmolality Calculated 300 270 - 300 mOsm/kg 01/28/2022 3:52 AM [facility] eGFR by CKD-EPI >90 >=90 mL/min/1.7 3 m2 01/28/2022 3:52 AM [facility] Blood BLOOD SPECIMEN / Unknown Lab Venipuncture / Unknown 01/28/2022 12:04 AM CDT 01/28/2022 3:25 AM CDT Bandar Vaca PA-C LAB - CHEMISTRY O RDERABLES [facility] [address] [place] [address], [facility] [phone] * MAMMO BILAT SCREENING (07/17/2020 8:20 AM CDT) Anatomical Region Laterality Modality Breast Bilateral Mammography 07/17/2020 10:1 7 AM CDT Impressions 07/17/2020 12:43 PM CDT IMPRESSION: ??No mammographic evidence of malignancy. RECOMMENDATION: ??Screening mammography in one year, pending no interval breast concerns. Patient will be notified of the results by lay letter. BI-RADS CATEGORY 2: BENIGN. I, Dr. LALTIO SALDIVAR M.D. have personally reviewed and interpreted [...] ordering physician and is also available on [employer], the Radiology Department's computerized picture archive system [...] was electronically signed by DUANE WHITE D.O. ??on 08/11/2018 2:32 PM . Procedure Note Duane White, DO - 08/11/2018 Examination: Dual energy x-ray absorptiometry of the lumbar spine andhip. 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 Presented today for osteoporosis screening Findings: Detailed data from the exam is sent separately to the ordering physician and is also available on [employer], the Radiology Department's computerized picture archive system [...] ASCU (PO REF LAB) (07/14/2015 3:26 PM [facility]ATHER CARVER) Diagnosis Comment(A) 07/21/2015 2:28 PM CDT [facility] ([facility]) Comment: EPITHELIAL CELL ABNORMALITY. LOW-GRADE SQUAMOUS INTRAEPITHELIAL LESION (LGSIL); MILD DYSPLASIA IS PRESENT. Recommendation Comment(A) 07/21/2015 2:28 PM CDT [facility] ([facility]) Comment:Suggest follow up as clinically appropriate. Specimen Adequacy Comment 07/21/2015 2:28 PM CDT [facility] ([facility]) Comment: Satisfactory for evaluation. ??Endocervical and/or squamous metaplastic cells (endocervical component) are present. Performed by Comment 07/21/2015 2:28 PM CDT [facility] ([facility]) Comment:Aleyda Koo, Cytot echnologist (ASCP) Electronically Signed by Comment 07/21/2015 2:28 PM CDT [facility] ([facility]) Comment:Moriah Brooks MD, Pathologist Comment . 07/21/2015 2:28 PM CDT [facility] ([facility]) Pathologist Provided ICD10 Comment 07/21/2015 2:28 PM CDT [facility] ([facility]) Comment:R87.612 Note Comment 07/21/2015 2:28 PM CDT [facility] ([facility]) Comment: The Pap smear is a screening test designed to aid in the detection of premalignant and malignant conditions of the uterine cervix. ??It is not a diagnostic procedure and should not be used as the sole means of detecting cervical cancer. ??Both false-positive and false-negative reports do occur. Note Comment 07/21/2015 2:28 PM CDT [facility] ([facility]) Comment: The HPV DNA reflex criteria were not met with this specimen result therefore, no HPV testing was performed. Miscellaneous samples (specimen) MICROSCOPIC CYTOLOGIC EXAMINATION OF SMEAR OF SPECIMEN FROM FEMALE GENITAL TRACT PREPARED USING PAPANICOLAOU TECHNIQUE / Unknown Venipuncture / Unknown 07/14/2015 3:26 PM [facility]ATHER CARVER 07/17/2015 11:24 AM CDT Narrative [facility] ([facility]) - 07/21/2015 2:28 PM CDT Performed at: ??[address] ??[id number] Rock Drill Operator: Moriah Brooks MD, Phone: ??[phone] Specimen Comment: Source.............Cervical Specimen Comment: LMP / Prev Treat...QXA=[id number];[place] / BX Specimen Comment: Dates / Results....no Specimen Comment: Other..............Post Menopausal Specimen Comment: No. of containers..01 CYTYC Thin Prep Vial Thom Guzmán MD LAB - PATHOLOGY/CYTO LOGY ORDERABLES [facility] ([facility]) * HIV-1 HIV-2 ANTIGEN/ANTIBODY (04/14/2015 1:14 AM [facility]ATHER CARVER) HIV Antigen/Antibod y 1 & 2 Non-reacti ve Non-react mi [facility] Comment: Neither HIV-1 p24 Antigen nor HIV-1/HIV-2 Antibodies are detected. ? Blood specimen (specimen) BLOOD SPECIMEN / Unknown 04/14/2015 1:14 AM [facility] CARVER 04/14/2015 2:14 AM LEATHER CARVER Edilma Callahan LAB - HEMATOLOGY ORD ERABLES [facility] [address] [place] [address] * HEPATITIS C RNA QUANTITATIVE PCR (03/29/2015 11:23 AM [facility]ATHER CARVER) Hepatitis C Virus RNA PCR Specimen: 1 ml Serum Reference: [id number] Test: Hepatitis C RT-PCR (Quantitative) RESULT Not Detected Reference Range Not Detected INTERPRETATION The quantitative Hepatitis C viral RNA RT-PCR determination was performed on a serum sample and is reported in IU/ml. Hepatitis C viral RNA was not detected. COMMENT The Hepatitis C viral (HCV) RNA analysis utilized a serum sample, real-time reverse home lighting adviser PCR, and is reported as Not Detected, [...] the isolation of HCV RNA with reverse home lighting adviser of genomic HCV RNA followed by real-time PCR in the presence of an unrelated RNA internal control. The internal control ensures that RNA is isolated, and that no general significant inhibitors of the RT-PCR process are present. This analysis was performed using an [place] FDA approved test methodology (Avocado™ RealTime HCV). Test performed at [facility], [address] [place] [address] ??[id number] This case has been personally reviewed and interpreted by the attending (teaching) pathologist. Final Diagnosis performed by Kevin Uribe PHD. Electronically signed 04/07/2015 [facility] Blood specimen (specimen) BLOOD SPECIMEN / Unknown 03/29/2015 11:23 AM [facility] CAR[facility] 03/29/2015 11:40 AM [facility] CAR[facility] Edilma Callahan LAB - CHEMISTRY [facility] from Last 3 Months or Most Recently Relevant to Health Maintenance Advance Directives Documents on File Type Date Recorded Patient Home Comfort Advisor Expl anation Advance Directives and Anthony barbour Will 04/06/2014 12:00 AM * Full Code (Latest Code Status on File) Date Activated Date Inactivated Comments 01/27/2022 9:27 PM 01/30/2022 5:10 PM Care Teams Ems Director Relationship Specialty Start Date End Date Lelo Lopez MD [address] [place] [address] PCP - General 10/20/17 Fawad Ruffin MD Hematology and Oncology 09/23/17 Tyrell Diaz Irene Update Information Referring Physician Oncology 09/25/17 Mally Rogers MD [address] [place] [address] Hematology and Oncology 09/25/17 Angelica Watson MD [facility] [place] [address] Hematology and Oncology 09/25/17 Natalie Tian, RN Registered Nurse 09/25/17 Latha Ordoñez, MARKING DEVICES ASSEMBLER-COMPUTER LAB PARA PROFESSIONAL [address] [facility] [address] [place] [address] Oncology 09/25/17 Leena Borden, HOME APPLIANCE WASHING MACHINE MECHANIC Environmental Health Sanitarian 09/25/17 Flaquita Manning, PharmD 09/25/17 Carolina Oglesby 10/20/17 Tarsha Cha MARKING DEVICES ASSEMBLER-GM [address] DIV OF HEMATOLOGY & [place] [address] Nurse Practitioner Family 10/04/20 Socorro Galdamez MARKING DEVICES ASSEMBLER-GM [address] DIV OF HEMATOLOGY & [place] [address] Nurse Practitioner 10/04/20 Jennifer Fung MD [address] [facility] OF [facility] & [place] [address] Hematology and Oncology 11/23/21
--- OUTSIDE RECORDS SUMMARY | 2024-05-27 23:20 | XMS_ITS | Encounter Summary ---
Author Organization [facility] Address [address] [address] [place] [address] Care Team Providers Care Ms Sql Developer Name Role Phone Unknown, Provider Primary Care Provider UnavailFawad Atwood MD Unavailable [phone] Kary Logan RN Unavailable Unavailab Tyrell Reed Unavailable Unavailab Mally Edward MD Unavailable [phone] Angelica Watson MD Unavailable Livier Ying RN Unavailable Unavailable Natalie Tian RN Unavailable UnavailLatha Box PROOF OPERATOR-VOLLEYBALL COMMENTATOR Unavailable [phone] Kary Logan RN Unavailable Unavailab Lelo Greene PROOF OPERATOR-DESKIDDING MACHINE OPERATOR Unavailable [phone] Theodore Oswald PA-C Unavailable Unavail able Meghan Alexander CHICLE GRINDER FEEDER Unavailable Unavailable Leena Borden NETWORK SYSTEMS ADMINISTRATOR Unavailable Unavailable Flaquita Manning PharmD Unavailable UnavailMeghan Siddiqi PharmD Unavailable UnavailAleah Cormier PROOF OPERATOR-DESKIDDING MACHINE OPERATOR Unavailable [phone] Selma Garcia RN Unavailable Unavailable Rody King RN Unavailable UnavailAron Jolley RN Unavailable Unavailable Ligia Rivera MA Unavailable Unavailable Ani Lira Unavailable Unavailable Carolina Oglesby Unavailable Yana Lelo Lira MD Primary Care Provider Марина Lebron Unavailable Unavailable Tarsha Cha PROOF OPERATOR-DESKIDDING MACHINE OPERATOR Unavailable [phone] Socorro Galdamez PROOF OPERATOR-DESKIDDING MACHINE OPERATOR Unavailable [phone] Jennifer Fung MD Unavailable Encounter Details Date Type Department Care Team (Late st Contact Info) Description 09/14/2014 Lab Requisition [facility] - Lab Cytogenetics [address] [place] [address] Juanito Pimentel MD [address] [place] [address] AML (acute myeloblastic leukemia) (HCC) Social History Tobacco Use Types Packs/Day Years Used Date Smoking Tobacco: Never Assessed Sex and Gender Information Value Date Recorded Sex Assigned at Not on file Gender Identity Not on file Sexual Orientation Not on file documented as of this encounter Plan of Treatment Not on file documented as of this encounter Procedures Procedure Name Priority Date/Time Associated Diagnosis Comments CYTOGENETICS CANCER PANEL Routine 09/14/2014 12:00 AM CDT AML (acute myeloblastic leukemia) [ICD-9-CM] documented in this encounter Results * CYTOGENETICS CANCER PANEL (09/14/2014 12:00 AM CDT) Indication for Study 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 The remaining percentage of cells had one signal of X of unknown origin in less than 1% of cells. No chromosome analysis was performed because 99% of interphase cells were found to be of donor origin. 5 5:42 PM [facility] Disclaimer *This test was developed, and its performance characteristics determined by [facility] Molecular Cytogenetics Laboratory as required by CLIA '88 Regulations. It has not been cleared or approved for specific uses by the U.S. Food and Drug Administration. The FDA has determined that such clearance or approval is not necessary. This test is used for clinical purposes. It should not be reported as investigational or for research. --------- Notes for FISH probes: 1- At the pretreatment level, the cutoff values for trisomy is 1%, dual breakapart is 3 to 5%, double fusion is 1%, and monosomy/deletion is 5 to 8% for no FFPE specimen and 20% for FFPE specimen. ??Efficiency of the probe intensity was acceptable overall. 2- At the post-treatment level, any identified percentage found below the pretreatment cutoff values could not be interpreted unequivocally and needs to be correlated with clinicopathological and clinical findings. At the post treatment level, a low percentage could either represent an actual minimal residual disease or an actual nature of normal cell division. 3- Cutoff values are combined for all different probes forming a range of percentages which covers low/high ends of each probe that fluctuate due to environmental conditions. Percentages that are close to the cutoff values have to be interpreted in correlation with clinicopathological and clinical findings. 4- An additional validation is performed by correlating pathology with cytogenetic findings. 5 5:42 PM [facility] Historical Cytogenomic Report [id number] from 08/01/2014 Results Analysis of 500 interphase cells from the bone marrow hybridized to dual labeled X and Y specific alpha satellite probes* showed the following results: nuc aidan //(DXZ1,DYZ3)x1[499/ 500] 99% donor . Interpretation Fluorescence in-situ hybridization study using X(DXZ1) and Y(DYZ1/DYZ3) specific alpha satellite probes showed 99% XY (donor cells) and 0% XX (patient cells). The remaining percentage of cells had one signal of X of unknown origin in less than 1% of cells. No chromosome analysis was performed because 99% of interphase cells were found to be of donor origin. at 1158 . Comment *This test was developed, and its performance characteristics determined by [facility] Cytogenetics Laboratory as required by CLIA '88 Regulations. It has not been cleared or approved for specific uses by the U.S. Food and Drug Administration. The FDA has determined that such clearance or approval is not necessary. This test is used for clinical purposes. It should not be reported as investigational or for research. --------- Notes for FISH probes: 1- At the pretreatment level, the cutoff values for trisomy is 1%, dual breakapart is 3 to 5%, double fusion is 1%, and monosomy/deletion is 5 to 8% for no FFPE specimen and 20% for FFPE specimen. Efficiency of the probe intensity was acceptable overall. 2- At the post-treatment level, any identified percentage found below the pretreatment cutoff values could not be interpreted unequivocally and needs to be correlated with clinicopathological and clinical findings. At the post treatment level, a low percentage could either represent an actual minimal residual disease or an actual nature of normal cell division. 3- Cutoff values are combined for all different probes forming a range of percentages which covers low/high ends of each probe that fluctuate due to environmental conditions. Percentages that are close to the cutoff values have to be interpreted in correlation with clinicopathological and clinical findings. 4- An additional validation is performed by correlating pathology with cytogenetic findings. . Historical Cytogenomic Report [id number] on 07/11/2014 Results Analysis of 500 interphase cells from the peripheral oncology blood hybridized to dual labeled X and Y specific alpha satellite probes* showed the following results: nuc aidan(DXZ1x2)[2/500]// (DXZ1,DYZ3)x1[495/50 0] 99% donor Interpretation Fluorescence in-situ hybridization study using X(DXZ1) and Y(DYZ1/DYZ3) specific alpha satellite probes showed 99% XY (donor cells) and less than 1% XX (patient cells). The remaining percentage of cells had one signal of X of unknown origin in less than 1% of cells. No chromosome analysis was performed because 99% of interphase cells were found to be of donor origin. 15-321 on 06/24/2014 Results: Analysis of 500 interphase cells from the peripheral oncology blood hybridized to dual labeled X and Y specific alpha satellite probes* showed the following results: nuc aidan(DXZ1x2)[5/500]// (DXZ1,DYZ3)x1[493/50 0] 98% donor Interpretation: Fluorescence in-situ hybridization study using X(DXZ1) and Y(DYZ1/DYZ3) specific alpha satellite probes showed 98% XY (donor cells) and 1% XX (patient cells). The remaining percentage of cells had one signal of X of unknown origin in less than 1% of cells. No chromosome analysis was performed because 98% of interphase cells were found to be of donor origin. at [phone] on 05/03/2014 Results: Fluorescence In-Situ Hybridization (FISH): Analysis of 500 interphase cells hybridized with specific labeled fluorescent probes*: break apart MLL probes* directed onto 11q23 showed the following results: nuc aidan (MLLx2)[467/500] Normal Interpretation: To rule out minimal residual disease of the previously identified clonal abnormality (see below;[id number]), FISH was performed using specific probes* as listed in the result section. FISH was negative indicating a possible disease remission. The previous study ([id number])showed a separation of the MLL signals in less than 1% of cells. Clinicopathological correlation is suggested. at 1715 on 04/20/2014 Results: Fluorescence In-Situ Hybridization (FISH): Analysis of 500 interphase cells hybridized with specific labeled fluorescent probes*: break apart MLL probes* directed onto 11q23 showed the following results: nuc aidan (MLLx2)(5'MLL sep 3'MLLx1)[4/500] Abnormal showing MLL abnormality in less than 1% of cells. Interpretation: To rule out a minimal residual disease of the previously identified clonal abnormality (see below; ), FISH was performed using specific probes* as listed in the result section. 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 FISH results indicate the continued presence of the abnormal clone at less than 1%. This percentage is below the cutoff value of dual breakapart (3 to 5%) in cases of pretreatment. Therefore, an interpretation of the present finding has to be done in correlation with other clinicopathological findings. The previous study ( ) showed a separation of the signals in 85% of cells. at 2006 on 04/06/2014 Results: Fluorescence In-Situ Hybridization (FISH): Analysis of 200 interphase cells hybridized with dual labeled dual fusion probes BCR/ABL1 probes* directed onto 22q11.2/9q34 and PML/CAM directed onto 15q24/17q21 specific fluorescent labeled probes* showed the following results: nuc aidan(ABL1,BCR)x2[185/ 200],(PML,CAM)x2[18 7/200] Normal Fluorescence In-Situ Hybridization (FISH): Analysis of 100 to 200 interphase cells hybridized with specific labeled fluorescent probes*: break apart MLL and CBFB probes* directed onto 11q23 and 16q22, dual labeled probes* D5S23/Z4W442 directed onto 5p15.2/5q31, dual labeled probes* CEP7/Q4B822 directed onto 7 cent/7q31, dual labeled CEP8/N12X159 directed onto 8cent/20q11.2, and dual labeled dual fusion ETO/AML1 directed onto 8q22/21q22 showed the following results: nuc aidan (EVI1x2)[196/200],(D 5S23,W5R969,EGR1)x2[ 197/200],(D7Z1,D7S48 6)x2[195/200],(CEP8, Z80Z053)x2[187/200], (ETO,AML1)x2[190/200 ],(MLLx2)(5'MLL sep 3'MLLx21)[85/100],(F OXO1x2)[192/200],(CB FBx2)[190/200] Abnormal showing MLL abnormality in 85% of cells. 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 Chromosome analysis and FISH of the remaining probes of the AML panel are in progress. FISH of AML was positive for MLL showing a seperation of the signals in 85% of cells indicating a translocation involving 11q23. FISH of all other probes was negative. Rearrangement involving MLL is found in ANLL and ALL. MLL translocation in ANLL is often associated with AML-M5 or M4. Overall, the prognostic association is unfavorable. Clinicopathological correlation is suggested. Chromosome analysis is in progress to determine the partner of 11q23 rearrangement. 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 The 4 remaining cells appeared normal. This type of translocation is associated with AML-M4 or M5. Similar translocation but with a breakpoint at 19p13.3 is associated with ALL. Clinicopathological correlation is suggested. 5 5:42 PM CDT [facility] Client Information [facility] ??- ??[id number] [facility] Lab Numbers: [id number] chrom, [id number] FISH 5 5:42 PM CDT [facility] Other BONE MARROW SPECIMEN / Unknown 09/14/2014 09/14/2014 3:49 PM CDT Juanito Pimentel MD LAB - PATHOLOGY/CYTO LOGY ORDERABLES Performing Organization Address City/State/[facility] Co de Phone Number [facility] [place] [address] documented in this encounter Visit Diagnoses Diagnosis AML (acute myeloblastic leukemia) (HCC) Acute myeloid leukemia, without mention of having achieved remission documented in this encounter Additional Health Concerns Infection Onset Date Last Indicated Resolved Time COVID-19 Under Investigation 01/27/2022 01/27/2022 01/27/2022 9:08 PM CDT COVID-19 Under Investigation 01/28/2022 01/28/2022 01/28/2022 3:39 PM CDT documented as of this encounter Care Teams Ms Sql Developer Relationship Specialty Start Date End Date Unknown, Provider PCP - General 08/18/17 10/19/17 Lelo Lopez MD [address] [place] [address] PCP - General 10/20/17 Fawad Ruffin MD Hematology and Oncology 09/23/17 Kary Logan, RN 09/23/17 09/24/17 Tyrell Diaz Irene Update Information Referring Physician Oncology 09/25/17 Mally Rogers MD [address] [place] [id number] Hematology and Oncology 09/25/17 Angelica Watson MD [address] [place] [id number] Hematology and Oncology 09/25/17 Livier Ying, RN 09/25/17 11/22/20 Natalie Tian, RN Registered Nurse 09/25/17 Latha Ordoñez, PROOF OPERATOR-VOLLEYBALL COMMENTATOR [address] [place] [address] [address] [address] Oncology 09/25/17 Kary Logan, RN 09/25/17 11/22/20 Lelo Becerra, PROOF OPERATOR-DESKIDDING MACHINE OPERATOR [address] [place] [address] [address] [address] Family Medicine 09/25/17 11/22/20 Theodore Oswald PA-C [address] [place] [address] [address] [address] Physician Clinical Admissions Manager 09/25/17 0 Meghan Alexander, CHICLE GRINDER FEEDER Power Reactor Operator 09/25/17 11/22/20 Leena Borden CSW Power Reactor Operator 09/25/17 Flaquita Manning, PharmD 09/25/17 Meghan Maya, PharmD 09/25/17 06/30/19 Aleah Giordano APRN-DESKIDDING MACHINE OPERATOR Family Medicine 09/25/17 11/22/20 Selma Garcia, VALERIA 10/20/17 11/22/20 Rody King, VALERIA 10/20/17 11/22/20 Aron Powell, VALERIA 10/20/17 06/30/19 Ligia Rivera MA 10/20/17 06/30/19 Ani Lira 10/20/17 11/22/20 Carolina Oglesby 10/20/17 Марина Lebron Hoisting Pile Driving Engineer Psychiatry 10/20/17 08/10/18 Tarsha Cha APRN-DESKIDDING MACHINE OPERATOR [address] DIV OF HEMATOLOGY [facility] [place] [address] Nurse Practitioner Family 10/04/20 Socorro Galdamez APRN-DESKIDDING MACHINE OPERATOR [address] DIV OF HEMATOLOGY [facility] [place] [address] Nurse Practitioner 10/04/20 Jennifer Fung MD [address] DIV OF HEMATOLOGY & [place] [address] Hematology and Oncology 11/23/21 documented as of this encounter
--- OUTSIDE RECORDS SUMMARY | 2024-05-27 23:20 | XMS_ITS | Patient Health Summary ---
Author Organization [facility] Address [address] [place] [address] Care Team Providers Care Ultrasound Specialist Name Role Phone Fawad Ruffin MD Unavailable [phone] Tyrell Diaz Unavailable Unavailab Mally Edward MD Unavailable [phone] Angelica Watson MD Unavailable [phone] Natalie Tian RN Unavailable UnavailLatha Box PLANER MILL GRADER-PREMIUM AUDITOR Unavailable [phone] Leena Borden VICE PRESIDENT OF DEVELOPMENT Unavailable Unavailable Flaquita ManningD Unavailable Unavaila Carolina Cheng Unavailable Yana Lelo Lira MD Primary Care Provider [phone] Tarsha Cha PLANER MILL GRADER-CAPITAL CAMPAIGN FUNDRAISER Unavailable [phone] Socorro Galdamez PLANER MILL GRADER-CAPITAL [employer]PAIGN FUNDRAISER Unavailable [phone] Jennifer Fung MD Unavailable Note from [facility] in [place],non-owned Affiliates and Associated Physician Practices is amultiple site organization consisting of ambulatory clinics and hospital sitesin [place], [place], [place] and [place]. This disclosure is being madepursuant to the Care Everywhere program and may not contain all information available regarding this patient. Last updated 18.[facility] Allergies No known active allergies Medications * Be aware that medications may not be up to date on this document. Alwaysverify current medications with the patient. * norethindrone-ethinyl estradiol (OVCON-35, 28,) 0.4-35 MG-MCG tablet(Started 07/14/2015) Take 1 Tab by mouth once daily 4 refills left * metFORMIN (GLUCOPHAGE) 500 MG tablet Take 1,000 mg by mouth 2 times daily with morning and evening meal * VENTOLIN HFA 108 (90 BASE) MCG/ACT inhaler(Started 07/13/2017) Inhale 2 puffs by mouth every 4 hours as needed * melatonin 5 MG tablet(Started 05/01/2016) Take 10 mg by mouth at bedtime * vitamin D3 (CHOLECALCIFEROL) 1000 UNITS tablet Take 2,000 Units by mouth once daily * glimepiride (AMARYL) 2 MG tablet(Started 08/11/2018) Take 1 tablet by mouth daily with breakfast * Potassium 99 MG tablet Take 99 mg by mouth once daily * simvastatin (ZOCOR) 40 MG tablet Take 40 mg by mouth at bedtime * SITagliptin (JANUVIA) 100 MG tablet Take 100 mg by mouth once daily * nicotine (NICODERM CQ) 14 MG/24HR patch(Started 06/27/2020) Apply 1 (one) patch to skin once daily 3 refills by 06/27/2021 * fluconazole (DIFLUCAN) 200 MG tablet(Started 07/04/2020) One by mouth every other day for three doses. 1 refill by 07/04/2021 * nystatin/triamcinolone (MYCOLOG) 611305-3.1 UNIT/GM-% ointment(Started 07/04/2020) Apply to external vulvar tissues twice daily for two weeks, then daily for two weeks. 60 g SEE NOTE 1 refill by 07/04/2021 * UNIFINE PENTIPS PLUS 32G X 4 MM MISC(Started 09/19/2020) USE DAILY DIRECTED * metFORMIN (GLUCOPHAGE) 1000 MG tablet(Started 08/22/2020) TAKE 1 TABLET BY MOUTH TWICE DAILY WITH THE MORNING AND EVENING MEAL * nystatin (MYCOSTATIN) 609480 UNIT/GM ointment(Started 07/04/2020) * triamcinolone acetonide (KENALOG) 0.1 % ointment(Started 07/04/2020) * SITagliptin (JANUVIA) 100 MG tablet Take 100 mg by mouth once daily * clonazePAM (KlonoPIN) 2 MG tablet Take 2 mg by mouth at bedtime Reasons: Feeling Anxious * acetaminophen (Tylenol) 325 MG tablet(Started 01/30/2022) Take 2 (two) tablets by mouth every 6 hours as needed Maximum allowable Acetaminophen amount = 4 Grams (4000 mg) / 24 hours. 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 Early menopause occurring in patient age younger than 45 years 08/08/2017 Restrictive lung disease 08/08/2017 Status post allogeneic bone marrow transplant Type 2 diabetes mellitus 08/08/2017 Abnormal Pap smear of cervix 07/14/2015 Resolved Problems Problem Noted Date Diagnosed Date Resolved Date Cough 01/27/2022 02/24/2022 Viral pneumonia 01/27/2022 02/26/2022 Fever 08/08/2017 08/22/2017 Severe episode of recurrent major depressive disorder, 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 (FLUZONE HIGH-DOSE QUADRIVALENT; 65Y+), 0.7 ML (HD-IIV4)(Given 06/29/2019, 05/12/2018, 07/22/2017) * INFLUENZA VACCINE, QUADR. (FLUZONE; FLULAVAL; FLUARIX; AFLURIA QUADRIVALENT; 6MO+), 0.5 ML (IIV4)(Given 01/30/2022) * MENINGOCOCCAL CONJUGATE (MCV4P)(Given 07/22/2017) * MMR(Given 08/15/2016) * PNEUMOCOCCAL PPSV23(Given 06/21/2015) * POLIO IPV(Given 10/30/2015, 08/24/2015, 06/21/2015) * Pneumococcal Pcv13 Conj(Given 04/19/2015, 02/08/2015, 12/10/2014) * TDAP (7yrs+)(Given 10/30/2015, 08/24/2015, 06/21/2015) * VARICELLA(Given 09/11/2016, 08/15/2016) Social History Tobacco Use Types Packs/Day Years [...] Mass Index 31.53 01/27/2022 3:14 PM CDT Procedures * GLUCOSE - POINT OF CARE(Performed 01/30/2022) * CARDIAC EKG ORDER(Performed 01/30/2022) * GLUCOSE - POINT OF CARE(Performed 01/30/2022) * DIFFERENTIAL MANUAL(Performed 01/30/2022) Performed for Cough * PHOSPHORUS BLOOD(Performed 01/30/2022) Performed for Cough * MAGNESIUM BLOOD(Performed 01/30/2022) Performed for Cough * CBC W AUTO DIFFERENTIAL(Performed 01/30/2022) Performed for Cough * GLUCOSE - POINT OF CARE(Performed 01/29/2022) * GLUCOSE - POINT OF CARE(Performed 01/29/2022) * GLUCOSE - POINT OF CARE(Performed 01/29/2022) * GLUCOSE - POINT OF CARE(Performed 01/29/2022) * GLUCOSE - POINT OF CARE(Performed 01/29/2022) * GLUCOSE - POINT OF CARE(Performed 01/29/2022) * DIFFERENTIAL MANUAL(Performed 01/29/2022) Performed for Cough * PHOSPHORUS BLOOD(Performed 01/29/2022) Performed for Cough * MAGNESIUM BLOOD(Performed 01/29/2022) Performed for Cough * CBC W AUTO DIFFERENTIAL(Performed 01/29/2022) Performed for Cough * GLUCOSE - POINT OF CARE(Performed 01/28/2022) * GLUCOSE - POINT OF CARE(Performed 01/28/2022) * GLUCOSE - POINT OF CARE(Performed 01/28/2022) * RESPIRATORY PANEL WITH SARS-COV-2 BY PCR (STL)(Performed 01/28/2022) Performed for Pneumonia due to infectious organism, unspecified laterality, unspecified part of lung * GLUCOSE - POINT OF CARE(Performed 01/28/2022) * GLUCOSE - POINT OF CARE(Performed 01/28/2022) * CULTURE BLOOD(Performed 01/28/2022) Performed for Pneumonia due to infectious organism, unspecified laterality, unspecified part of lung * TROPONIN I(Performed 01/28/2022) Performed for Cough * CULTURE BLOOD(Performed 01/28/2022) Performed for Pneumonia due to infectious organism, unspecified laterality, unspecified part of lung * STREP PNEUMONIAE ANTIGEN URINE(Performed 01/28/2022) Performed for Cough * LEGIONELLA ANTIGEN URINE(Performed 01/28/2022) Performed for Cough * REJECTED SPUTUM GRAM STAIN(Performed 01/28/2022) Performed for Cough * MYCOPLASMA PNEUMONIAE PCR(Performed 01/28/2022) Performed for Cough * DIFFERENTIAL MANUAL(Performed 01/28/2022) Performed for Cough * PROCALCITONIN LEVEL(Performed 01/28/2022) Performed for Pneumonia due to infectious organism, unspecified laterality, unspecified part of lung * HEMOGLOBIN A1C(Performed 01/28/2022) Performed for Type 2 diabetes mellitus with diabetic chronic kidney disease, unspecified CKD stage,unspecified whether product support sales representative insulin use (HCC) * PHOSPHORUS BLOOD(Performed 01/28/2022) Performed for Cough * MAGNESIUM BLOOD(Performed 01/28/2022) Performed for Cough * CBC W AUTO DIFFERENTIAL(Performed 01/28/2022) Performed for Cough * BASIC METABOLIC PANEL (CALCIUM TOTAL)(Performed 01/28/2022) Performed for Cough * GLUCOSE - POINT OF CARE(Performed 01/27/2022) * SARS-COV-2 (COVID-19)+INFLU A+B PCR RAPID(Performed 01/27/2022) Performed for Cough * XR CHEST 2VW(Performed 01/27/2022) Performed for Cough * DIFFERENTIAL MANUAL(Performed 01/27/2022) * BLOOD GASES CHASE + COOX PANEL(Performed 01/27/2022) * TROPONIN I(Performed 01/27/2022) * HCG BETA BLOOD QUANTITATIVE(Performed 01/27/2022) * COMPREHENSIVE METABOLIC PANEL(Performed 01/27/2022) * CBC W AUTO DIFFERENTIAL(Performed 01/27/2022) * EKG 12-LEAD(Performed 01/27/2022) Performed for Cough, Hypoxia * CHIMERISM CD33/CD66B CELL ANALYSIS(Performed 11/17/2020) Performed for Status post allogeneic bone marrow transplant (HCC), Acute myeloid leukemia in remission (HCC) * CHIMERISM CD3 CELL ANALYSIS(Performed 11/17/2020) Performed for Status post allogeneic bone marrow transplant (HCC), Acute myeloid leukemia in remission (HCC) * DIFFERENTIAL MANUAL(Performed 11/17/2020) Performed for Acute myeloid leukemia in remission (HCC) * PHOSPHORUS BLOOD(Performed 11/17/2020) Performed for Acute myeloid leukemia in remission (HCC) * MAGNESIUM BLOOD(Performed 11/17/2020) Performed for Acute myeloid leukemia in remission (HCC) * CBC W AUTO DIFFERENTIAL(Performed 11/17/2020) Performed for Acute myeloid leukemia in remission (HCC) * COMPREHENSIVE METABOLIC PANEL(Performed 11/17/2020) Performed for Acute myeloid leukemia in remission (HCC) * HEMOGLOBIN A1C(Performed 11/17/2020) * MAMMO BILAT SCREENING(Performed 07/17/2020) Performed for Visit for screening mammogram * SUSCEPTIBILITY YEAST(Performed 07/04/2020) * CULTURE YEAST WITH DIRECT FLUORESCENT TANA(Performed 07/04/2020) Performed for Yeast infection involving the vagina and surrounding area * WET PREP - POINT OF CARE (AMB) [facility]U(Performed 07/04/2020) Performed for Yeast infection involving the vagina and surrounding area * PH FLUID - POCT (AMB) SLU(Performed 07/04/2020) Performed for Yeast infection involving the vagina and surrounding area * FUNGUS TANA - POINT OF CARE (AMB) [facility]U(Performed 07/04/2020) Performed for Yeast infection involving the vagina and surrounding area * DIFFERENTIAL MANUAL(Performed 06/27/2020) Performed for Acute myeloid leukemia in remission (HCC) * PHOSPHORUS BLOOD(Performed 06/27/2020) Performed for Acute myeloid leukemia in remission (HCC) * MAGNESIUM BLOOD(Performed 06/27/2020) Performed for Acute myeloid leukemia in remission (HCC) * CBC W AUTO DIFFERENTIAL(Performed 06/27/2020) Performed for Acute myeloid leukemia in remission (HCC) * COMPREHENSIVE METABOLIC PANEL(Performed 06/27/2020) Performed for Acute myeloid leukemia in remission (HCC) * HEMOGLOBIN A1C(Performed 06/27/2020) Performed for 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, without long-term current use of insulin ([facility]) * T4 FREE(Performed 06/27/2020) Performed for Hypothyroidism, unspecified type * TSH(Performed 06/27/2020) Performed for Hypothyroidism, unspecified type * IR CENTRAL LINE REMOVAL(Performed 01/31/2020) Performed for Status post allogeneic bone marrow transplant ([facility]) * HCG URINE QUALITATIVE - POCT (IP) [facility](Performed 01/31/2020) * HEMOGLOBIN A1C(Performed 12/28/2019) Performed for Type 2 diabetes mellitus with hyperosmolar coma, unspecified whether product support sales representative insulin use ([facility]) * PHOSPHORUS BLOOD(Performed 12/28/2019) Performed for Acute myeloid leukemia in remission ([facility]) * MAGNESIUM BLOOD(Performed 12/28/2019) Performed for Acute myeloid leukemia in remission (HCC) * CBC W AUTO DIFFERENTIAL(Performed 12/28/2019) Performed for Acute myeloid leukemia in remission (HCC) * COMPREHENSIVE METABOLIC PANEL(Performed 12/28/2019) Performed for Acute myeloid leukemia in remission (HCC) * PROTEIN URINE RANDOM QUANTITATIVE(Performed 06/29/2019) Performed for Status post allogeneic bone marrow transplant ([facility]) * TSH(Performed 06/29/2019) Performed for Prediabetes , Status post allogeneic bone marrow transplant ([facility]) * DIFFERENTIAL MANUAL(Performed 06/29/2019) Performed for Acute myeloid leukemia in remission (HCC) * PHOSPHORUS BLOOD(Performed 06/29/2019) Performed for Acute myeloid leukemia in remission (HCC) * MAGNESIUM BLOOD(Performed 06/29/2019) Performed for Acute myeloid leukemia in remission (HCC) * CBC W AUTO DIFFERENTIAL(Performed 06/29/2019) Performed for Acute myeloid leukemia in remission (HCC) * COMPREHENSIVE METABOLIC PANEL(Performed 06/29/2019) Performed for Acute myeloid leukemia in remission (HCC) * T4 FREE(Performed 06/29/2019) Performed for Acute myeloid leukemia in remission (HCC) * ECHO COMPLETE(Performed 06/29/2019) Performed for Status post allogeneic bone marrow transplant ([facility]) * PFT-LAB(Performed 06/29/2019) * VITAMIN D 25-HYDROXY(Performed 05/04/2019) Performed for Acute myeloid leukemia in remission (HCC) * PHOSPHORUS BLOOD(Performed 05/04/2019) Performed for Acute myeloid leukemia in remission (HCC) * MAGNESIUM BLOOD(Performed 05/04/2019) Performed for Acute myeloid leukemia in remission (HCC) * CBC W AUTO DIFFERENTIAL(Performed 05/04/2019) Performed for Acute myeloid leukemia in remission (HCC) * COMPREHENSIVE METABOLIC PANEL(Performed 05/04/2019) Performed for Acute myeloid leukemia in remission (HCC) * HEMOGLOBIN A1C(Performed 05/04/2019) Performed for Acute myeloid leukemia in remission (HCC) * DIFFERENTIAL MANUAL(Performed 12/08/2018) Performed for Acute myeloid leukemia in remission (HCC) * HEMOGLOBIN A1C(Performed 12/08/2018) Performed for Acute myeloid leukemia in remission (HCC) * PHOSPHORUS BLOOD(Performed 12/08/2018) Performed for Acute myeloid leukemia in remission (HCC) * MAGNESIUM BLOOD(Performed 12/08/2018) Performed for Acute myeloid leukemia in remission (HCC) * CBC W AUTO DIFFERENTIAL(Performed 12/08/2018) Performed for Acute myeloid leukemia in remission (HCC) * COMPREHENSIVE METABOLIC PANEL(Performed 12/08/2018) Performed for Acute myeloid leukemia in remission (HCC) * URINALYSIS REFLEX TO MICROSCOPIC NO CULTURE(Performed 08/11/2018) Performed for History of allogeneic bone marrow transplant (HCC) * DIFFERENTIAL MANUAL(Performed 08/11/2018) Performed for Acute myeloid leukemia in remission (HCC) * PHOSPHORUS BLOOD(Performed 08/11/2018) Performed for Acute myeloid leukemia in remission (HCC) * MAGNESIUM BLOOD(Performed 08/11/2018) Performed for Acute myeloid leukemia in remission (HCC) * CBC W AUTO DIFFERENTIAL(Performed 08/11/2018) Performed for Acute myeloid leukemia in remission (HCC) * COMPREHENSIVE METABOLIC PANEL(Performed 08/11/2018) Performed for Acute myeloid leukemia in remission (HCC) * T4 FREE(Performed 08/11/2018) Performed for Abnormal results of thyroid function studies , History of allogeneic bone marrow transplant (HCC) * LH(Performed 08/11/2018) Performed for History of allogeneic bone marrow transplant (HCC) * ESTRADIOL(Performed 08/11/2018) Performed for History of allogeneic bone marrow transplant (HCC) * HEMOGLOBIN A1C(Performed 08/11/2018) Performed for Other specified abnormal findings of blood chemistry , History of allogeneic bone marrow transplant (HCC) * FSH(Performed 08/11/2018) Performed for History of allogeneic bone marrow transplant (HCC) * TSH(Performed 08/11/2018) Performed for Prediabetes , History of allogeneic bone marrow transplant (HCC) * DEXA BONE DENSITY AXIAL SKELETON(Performed 08/11/2018) Performed for Status post allogeneic bone marrow transplant (HCC), Acute myeloid leukemia in remission (HCC) * VITAMIN D 25-HYDROXY(Performed 05/12/2018) Performed for Status post allogeneic bone marrow transplant (HCC) * DIFFERENTIAL MANUAL(Performed 05/12/2018) Performed for Acute myeloid leukemia in remission (HCC) * HEMOGLOBIN A1C(Performed 05/12/2018) Performed for Acute myeloid leukemia in remission (HCC) * PHOSPHORUS BLOOD(Performed 05/12/2018) Performed for Acute myeloid leukemia in remission (HCC) * MAGNESIUM BLOOD(Performed 05/12/2018) Performed for Acute myeloid leukemia in remission (HCC) * CBC W AUTO DIFFERENTIAL(Performed 05/12/2018) Performed for Acute myeloid leukemia in remission (HCC) * COMPREHENSIVE METABOLIC PANEL(Performed 05/12/2018) Performed for Acute myeloid leukemia in remission (HCC) * LDL CHOLESTEROL DIRECT(Performed 12/23/2017) Performed for Status post allogeneic bone marrow transplant (HCC), Acute myeloid leukemia in remission (HCC), Type 2 diabetes mellitus with complication, unspecified whether product support sales representative insulin use * LIPID PROFILE(Performed 12/23/2017) Performed for Status post allogeneic bone marrow transplant (HCC), Acute myeloid leukemia in remission (HCC), Type 2 diabetes mellitus with complication, unspecified whether shelter insulin use * DIFFERENTIAL MANUAL(Performed 12/23/2017) Performed for Acute myeloid leukemia in remission (HCC) * HEMOGLOBIN A1C(Performed 12/23/2017) Performed for Acute myeloid leukemia in remission (HCC) * PHOSPHORUS BLOOD(Performed 12/23/2017) Performed for Acute myeloid leukemia in remission (HCC) * MAGNESIUM BLOOD(Performed 12/23/2017) Performed for Acute myeloid leukemia in remission (HCC) * CBC W AUTO DIFFERENTIAL(Performed 12/23/2017) Performed for Acute myeloid leukemia in remission (HCC) * COMPREHENSIVE METABOLIC PANEL(Performed 12/23/2017) Performed for Acute myeloid leukemia in remission (HCC) * URINALYSIS REFLEX TO MICROSCOPIC NO CULTURE(Performed 09/23/2017) Performed for Acute myeloid leukemia in remission (HCC) * HEMOGLOBIN A1C(Performed 09/23/2017) Performed for Acute myeloid leukemia in remission (HCC) * DIFFERENTIAL MANUAL(Performed 09/23/2017) Performed for Acute myeloid leukemia in remission (HCC) * VITAMIN D 25-HYDROXY(Performed 09/23/2017) Performed for Acute myeloid leukemia in remission (HCC) * ESTRADIOL(Performed 09/23/2017) Performed for Acute myeloid leukemia in remission (HCC) * LDH BLOOD(Performed 09/23/2017) Performed for Acute myeloid leukemia in remission (HCC) * T4 FREE(Performed 09/23/2017) Performed for Acute myeloid leukemia in remission (HCC) * PHOSPHORUS BLOOD(Performed 09/23/2017) Performed for Acute myeloid leukemia in remission (HCC) * MAGNESIUM BLOOD(Performed 09/23/2017) Performed for Acute myeloid leukemia in remission (HCC) * COMPREHENSIVE METABOLIC PANEL(Performed 09/23/2017) Performed for Acute myeloid leukemia in remission (HCC) * CBC W AUTO DIFFERENTIAL(Performed 09/23/2017) Performed for Acute myeloid leukemia in remission (HCC) * RESPIRATORY PATHOGEN PANEL BY PCR(Performed 09/23/2017) Performed for Acute myeloid leukemia in remission (HCC) * RESPIRATORY PATHOGEN PANEL BY PCR(Performed 07/22/2017) * CBC W AUTO DIFFERENTIAL(Performed 07/22/2017) * HEMOGLOBIN A1C(Performed 07/22/2017) * TSH(Performed 07/22/2017) * COMPREHENSIVE METABOLIC PANEL(Performed 07/22/2017) * PHOSPHORUS BLOOD(Performed 07/22/2017) * MAGNESIUM BLOOD(Performed 07/22/2017) * CBC W AUTO DIFFERENTIAL(Performed 07/22/2017) * RESPIRATORY PATHOGEN PANEL BY PCR(Performed 04/22/2017) * COMPREHENSIVE METABOLIC PANEL(Performed 04/22/2017) * PHOSPHORUS BLOOD(Performed 04/22/2017) * MAGNESIUM BLOOD(Performed 04/22/2017) * CBC W AUTO DIFFERENTIAL(Performed 04/22/2017) * HEMOGLOBIN A1C(Performed 04/22/2017) * CBC W AUTO DIFFERENTIAL(Performed 04/22/2017) * HEMOGLOBIN A1C(Performed 01/21/2017) * COMPREHENSIVE METABOLIC PANEL(Performed 01/21/2017) * PHOSPHORUS BLOOD(Performed 01/21/2017) * MAGNESIUM BLOOD(Performed 01/21/2017) * CBC W AUTO DIFFERENTIAL(Performed 01/21/2017) * RESPIRATORY PATHOGEN PANEL BY PCR(Performed 01/21/2017) * CBC W AUTO DIFFERENTIAL(Performed 01/21/2017) * VARICELLA ZOSTER ANTIBODY IGG(Performed 11/19/2016) * HEMOGLOBIN A1C(Performed 11/19/2016) * CBC W AUTO DIFFERENTIAL(Performed 11/19/2016) * COMPREHENSIVE METABOLIC PANEL(Performed 11/19/2016) * PHOSPHORUS BLOOD(Performed 11/19/2016) * MAGNESIUM BLOOD(Performed 11/19/2016) * CBC W AUTO DIFFERENTIAL(Performed 11/19/2016) * PHOSPHORUS BLOOD(Performed 08/15/2016) * MAGNESIUM BLOOD(Performed 08/15/2016) * COMPREHENSIVE METABOLIC PANEL(Performed 08/15/2016) * HEMOGLOBIN A1C(Performed 08/15/2016) * CBC W AUTO DIFFERENTIAL(Performed 08/15/2016) * CBC W AUTO DIFFERENTIAL(Performed 08/15/2016) * COMPLETE PFT W/WO BRONCHODILATOR(Performed 08/01/2016) * DEXA BONE DENSITY AXIAL SKELETON(Performed 08/01/2016) * XR CHEST 1VW PORTABLE(Performed 07/13/2016) * RESPIRATORY PATHOGEN PANEL BY PCR(Performed 07/13/2016) * COMPREHENSIVE METABOLIC PANEL(Performed 07/13/2016) * PHOSPHORUS BLOOD(Performed 07/13/2016) * MAGNESIUM BLOOD(Performed 07/13/2016) * CBC W AUTO DIFFERENTIAL(Performed 07/13/2016) * CBC W AUTO DIFFERENTIAL(Performed 07/13/2016) * COMPREHENSIVE METABOLIC PANEL(Performed 05/16/2016) * PHOSPHORUS BLOOD(Performed 05/16/2016) * MAGNESIUM BLOOD(Performed 05/16/2016) * CBC W AUTO DIFFERENTIAL(Performed 05/16/2016) * CBC W AUTO DIFFERENTIAL(Performed 05/16/2016) * CBC W AUTO DIFFERENTIAL(Performed 03/21/2016) * HEPATITIS B SURFACE ANTIBODY QUANT(Performed 03/21/2016) * VARICELLA ZOSTER ANTIBODY IGG(Performed 03/21/2016) * PHOSPHORUS BLOOD(Performed 03/21/2016) * MAGNESIUM BLOOD(Performed 03/21/2016) * COMPREHENSIVE METABOLIC PANEL(Performed 03/21/2016) * CBC W AUTO DIFFERENTIAL(Performed 03/21/2016) * LH(Performed 02/01/2016) * FSH(Performed 02/01/2016) * VITAMIN D 25-HYDROXY(Performed 02/01/2016) * DIFFERENTIAL MANUAL(Performed 02/01/2016) * COMPREHENSIVE METABOLIC PANEL(Performed 02/01/2016) * PHOSPHORUS BLOOD(Performed 02/01/2016) * MAGNESIUM BLOOD(Performed 02/01/2016) * CBC W AUTO DIFFERENTIAL(Performed 02/01/2016) * CBC W AUTO DIFFERENTIAL(Performed 02/01/2016) * RESPIRATORY PATHOGEN PANEL BY PCR(Performed 12/28/2015) * COMPREHENSIVE METABOLIC PANEL(Performed 12/28/2015) * PHOSPHORUS BLOOD(Performed 12/28/2015) * MAGNESIUM BLOOD(Performed 12/28/2015) * CBC W AUTO DIFFERENTIAL(Performed 12/28/2015) * CBC W AUTO DIFFERENTIAL(Performed 12/28/2015) * ACTH 60 MINUTES(Performed 11/29/2015) * RESPIRATORY PATHOGEN PANEL BY PCR(Performed 11/29/2015) * ACTH 30 MINUTES(Performed 11/29/2015) * CD4 (ABSOLUTE T4)(Performed 11/29/2015) * ACTH CORTISOL BASELINE(Performed 11/29/2015) * COMPREHENSIVE METABOLIC PANEL(Performed 11/29/2015) * PHOSPHORUS BLOOD(Performed 11/29/2015) * MAGNESIUM BLOOD(Performed 11/29/2015) * CBC W AUTO DIFFERENTIAL(Performed 11/29/2015) * ACTH(Performed 11/29/2015) * CBC W AUTO DIFFERENTIAL(Performed 11/29/2015) * PATHOLOGY TISSUE EXAM (STL)(Performed 11/15/2015) Performed for Low grade squamous intraepithelial lesion on cytologic smear of cervix (lgsil) * PHOSPHORUS BLOOD(Performed 11/15/2015) * MAGNESIUM BLOOD(Performed 11/15/2015) * COMPREHENSIVE METABOLIC PANEL(Performed 11/15/2015) * CBC W AUTO DIFFERENTIAL(Performed 11/15/2015) * DOUG-ARRIAZA VIRUS PCR QUANT BLOOD/CSF(Performed 11/15/2015) * CBC W AUTO DIFFERENTIAL(Performed 11/15/2015) * HCG URINE QUALITATIVE - POINT OF CARE(Performed 11/15/2015) Performed for Low grade squamous intraepithelial lesion on cytologic smear of cervix (lgsil) * EKG 12-LEAD(Performed 11/15/2015) * CBC W AUTO DIFFERENTIAL(Performed 10/30/2015) * DIFFERENTIAL MANUAL(Performed 10/30/2015) * COMPREHENSIVE METABOLIC PANEL(Performed 10/30/2015) * PHOSPHORUS BLOOD(Performed 10/30/2015) * MAGNESIUM BLOOD(Performed 10/30/2015) * CBC W AUTO DIFFERENTIAL(Performed 10/30/2015) * DOUG-ARRIAZA VIRUS PCR QUANT BLOOD/CSF(Performed 10/30/2015) * EKG 12-LEAD(Performed 10/30/2015) * DOUG-ARRIAZA VIRUS PCR QUANT BLOOD/CSF(Performed 09/29/2015) * VITAMIN D 25-HYDROXY(Performed 09/20/2015) * COMPREHENSIVE METABOLIC PANEL(Performed 09/20/2015) * PHOSPHORUS BLOOD(Performed 09/20/2015) * MAGNESIUM BLOOD(Performed 09/20/2015) * CBC W AUTO DIFFERENTIAL(Performed 09/20/2015) * CBC W AUTO DIFFERENTIAL(Performed 09/20/2015) * DOUG-ARRIAZA VIRUS PCR QUANT BLOOD/CSF(Performed 09/20/2015) * COMPREHENSIVE METABOLIC PANEL(Performed 08/24/2015) * PHOSPHORUS BLOOD(Performed 08/24/2015) * MAGNESIUM BLOOD(Performed 08/24/2015) * CBC W AUTO DIFFERENTIAL(Performed 08/24/2015) * CBC W AUTO DIFFERENTIAL(Performed 08/24/2015) * DOUG-ARRIAZA VIRUS PCR QUANT BLOOD/CSF(Performed 08/24/2015) * CD4 (ABSOLUTE T4)(Performed 08/09/2015) * COMPREHENSIVE METABOLIC PANEL(Performed 08/09/2015) * PHOSPHORUS BLOOD(Performed 08/09/2015) * MAGNESIUM BLOOD(Performed 08/09/2015) * CBC W AUTO DIFFERENTIAL(Performed 08/09/2015) * CBC W AUTO DIFFERENTIAL(Performed 08/09/2015) * DOUG-ARRIAZA VIRUS PCR QUANT BLOOD/CSF(Performed 08/09/2015) * IR VENTURA CATH INSERT(Performed 08/02/2015) * IR PICC LINE INSERT(Performed 08/02/2015) * IR US GUIDE VASCULAR ACCESS(Performed 08/02/2015) * IR CENTRAL LINE REMOVAL(Performed 08/02/2015) * HCG URINE QUALITATIVE - POCT (IP) SLH(Performed 08/02/2015) * PHOSPHORUS BLOOD(Performed 08/02/2015) * MAGNESIUM BLOOD(Performed 08/02/2015) * COMPREHENSIVE METABOLIC PANEL(Performed 08/02/2015) * CBC W AUTO DIFFERENTIAL(Performed 08/02/2015) * CBC W AUTO DIFFERENTIAL(Performed 08/02/2015) * DOUG-ARRIAZA VIRUS PCR QUANT BLOOD/CSF(Performed 08/02/2015) * RESPIRATORY PATHOGEN PANEL BY PCR(Performed 08/02/2015) * POST TRANSPLANT ENGRAFTMENT ANALYSIS(Performed 07/26/2015) * CBC W AUTO DIFFERENTIAL(Performed 07/26/2015) * CBC W AUTO DIFFERENTIAL(Performed 07/26/2015) * PHOSPHORUS BLOOD(Performed 07/26/2015) * MAGNESIUM BLOOD(Performed 07/26/2015) * COMPREHENSIVE METABOLIC PANEL(Performed 07/26/2015) * DOUG-ARRIAZA VIRUS PCR QUANT BLOOD/CSF(Performed 07/26/2015) * COMPREHENSIVE METABOLIC PANEL(Performed 07/21/2015) * PHOSPHORUS BLOOD(Performed 07/21/2015) * MAGNESIUM BLOOD(Performed 07/21/2015) * CBC W AUTO DIFFERENTIAL(Performed 07/21/2015) * CBC W AUTO DIFFERENTIAL(Performed 07/21/2015) * CT CHEST WO CONTRAST(Performed 07/19/2015) * GLUCOSE ACCUCHECK(Performed 07/19/2015) * GLUCOSE ACCUCHECK(Performed 07/19/2015) * PHOSPHORUS BLOOD(Performed 07/19/2015) * MAGNESIUM BLOOD(Performed 07/19/2015) * COMPREHENSIVE METABOLIC PANEL(Performed 07/19/2015) * CBC W AUTO DIFFERENTIAL(Performed 07/19/2015) * CBC W AUTO DIFFERENTIAL(Performed 07/19/2015) * DOUG-ARRIAZA VIRUS PCR QUANT BLOOD/CSF(Performed 07/19/2015) * GLUCOSE ACCUCHECK(Performed 07/19/2015) * GLUCOSE ACCUCHECK(Performed 07/18/2015) * GLUCOSE ACCUCHECK(Performed 07/18/2015) * GLUCOSE ACCUCHECK(Performed 07/18/2015) * GLUCOSE ACCUCHECK(Performed 07/18/2015) * GLUCOSE ACCUCHECK(Performed 07/18/2015) * CBC W AUTO DIFFERENTIAL(Performed 07/18/2015) * DIFFERENTIAL MANUAL(Performed 07/18/2015) * CBC W AUTO DIFFERENTIAL(Performed 07/18/2015) * PHOSPHORUS BLOOD(Performed 07/18/2015) * MAGNESIUM BLOOD(Performed 07/18/2015) * COMPREHENSIVE METABOLIC PANEL(Performed 07/18/2015) * GLUCOSE ACCUCHECK(Performed 07/18/2015) * GLUCOSE ACCUCHECK(Performed 07/17/2015) * GLUCOSE ACCUCHECK(Performed 07/17/2015) * XR CHEST 1VW PORTABLE(Performed 07/17/2015) * URINALYSIS W/MICROSCOPIC NO CULTURE(Performed 07/17/2015) * COMPREHENSIVE METABOLIC PANEL(Performed 07/17/2015) * PHOSPHORUS BLOOD(Performed 07/17/2015) * MAGNESIUM BLOOD(Performed 07/17/2015) * CBC W AUTO DIFFERENTIAL(Performed 07/17/2015) * CBC W AUTO DIFFERENTIAL(Performed 07/17/2015) * RESPIRATORY PATHOGEN PANEL BY PCR(Performed 07/17/2015) * CULTURE BLOOD(Performed 07/17/2015) * CULTURE BLOOD(Performed 07/17/2015) * CULTURE BLOOD(Performed 07/17/2015) * CULTURE BLOOD(Performed 07/17/2015) * PAP LB RFLX HPV ASCU(Performed 07/14/2015) Performed for Abnormal cervical Papanicolaou smear, unspecified abnormal pap finding * ACTH 60 MINUTES(Performed 07/12/2015) * ACTH 30 MINUTES(Performed 07/12/2015) * ACTH(Performed 07/12/2015) * ACTH CORTISOL BASELINE(Performed 07/12/2015) * PHOSPHORUS BLOOD(Performed 07/12/2015) * MAGNESIUM BLOOD(Performed 07/12/2015) * COMPREHENSIVE METABOLIC PANEL(Performed 07/12/2015) * CBC W AUTO DIFFERENTIAL(Performed 07/12/2015) * CBC W AUTO DIFFERENTIAL(Performed 07/12/2015) * DOUG-ARRIAZA VIRUS PCR QUANT BLOOD/CSF(Performed 07/12/2015) * COMPLETE PFT W/WO BRONCHODILATOR(Performed 07/12/2015) * DOUG-ARRIAZA VIRUS PCR QUANT BLOOD/CSF(Performed 07/05/2015) * COMPREHENSIVE METABOLIC PANEL(Performed 07/05/2015) * PHOSPHORUS BLOOD(Performed 07/05/2015) * MAGNESIUM BLOOD(Performed 07/05/2015) * CBC W AUTO DIFFERENTIAL(Performed 07/05/2015) * CBC W AUTO DIFFERENTIAL(Performed 07/05/2015) * COMPREHENSIVE METABOLIC PANEL(Performed 06/30/2015) * PHOSPHORUS BLOOD(Performed 06/30/2015) * MAGNESIUM BLOOD(Performed 06/30/2015) * CBC W AUTO DIFFERENTIAL(Performed 06/30/2015) * CBC W AUTO DIFFERENTIAL(Performed 06/30/2015) * VITAMIN D 25-HYDROXY(Performed 06/21/2015) * COMPREHENSIVE METABOLIC PANEL(Performed 06/21/2015) * PHOSPHORUS BLOOD(Performed 06/21/2015) * MAGNESIUM BLOOD(Performed 06/21/2015) * CBC W AUTO DIFFERENTIAL(Performed 06/21/2015) * CBC W AUTO DIFFERENTIAL(Performed 06/21/2015) * DOUG-ARRIAZA VIRUS PCR QUANT BLOOD/CSF(Performed 06/21/2015) * FERRITIN(Performed 06/14/2015) * IRON BLOOD(Performed 06/14/2015) * TRANSFERRIN(Performed 06/14/2015) * PHOSPHORUS BLOOD(Performed 06/14/2015) * MAGNESIUM BLOOD(Performed 06/14/2015) * COMPREHENSIVE METABOLIC PANEL(Performed 06/14/2015) * CBC W AUTO DIFFERENTIAL(Performed 06/14/2015) * CBC W AUTO DIFFERENTIAL(Performed 06/14/2015) * RETIC COUNT(Performed 06/14/2015) * DOUG-ARRIAZA VIRUS PCR QUANT BLOOD/CSF(Performed 06/14/2015) * PATHOLOGY/GENETICS HISTORICAL-ONBASE(Performed 06/09/2015) * HOLD SPECIMEN DNA TISSUE(Performed 06/07/2015) * CYTOGENETICS CANCER PANEL(Performed 06/07/2015) * CHROMOSOME ANALYSIS PANEL(Performed 06/07/2015) * PATHOLOGY TISSUE(Performed 06/07/2015) * POST TRANSPLANT ENGRAFTMENT ANALYSIS(Performed 06/07/2015) * FLOW CYTOMETRY PANEL(Performed 06/07/2015) * LH(Performed 06/07/2015) * POST TRANSPLANT ENGRAFTMENT ANALYSIS(Performed 06/07/2015) * ESTRONE(Performed 06/07/2015) * ESTRADIOL(Performed 06/07/2015) * FSH(Performed 06/07/2015) * TACROLIMUS LEVEL(Performed 06/07/2015) * CD4 (ABSOLUTE T4)(Performed 06/07/2015) * TSH(Performed 06/07/2015) * CBC W AUTO DIFFERENTIAL(Performed 06/07/2015) * RBC MORPHOLOGY(Performed 06/07/2015) * PHOSPHORUS BLOOD(Performed 06/07/2015) * MAGNESIUM BLOOD(Performed 06/07/2015) * COMPREHENSIVE METABOLIC PANEL(Performed 06/07/2015) * LDH BLOOD(Performed 06/07/2015) * CBC W AUTO DIFFERENTIAL(Performed 06/07/2015) * DOUG-ARRIAZA VIRUS PCR QUANT BLOOD/CSF(Performed 06/07/2015) * DEXA BONE DENSITY AXIAL SKELETON(Performed 06/07/2015) * CYTOGENETICS CANCER PANEL(Performed 06/07/2015) * RESPIRATORY PATHOGEN PANEL BY PCR(Performed 05/31/2015) * RBC MORPHOLOGY(Performed 05/31/2015) * CBC W AUTO DIFFERENTIAL(Performed 05/31/2015) * PHOSPHORUS BLOOD(Performed 05/31/2015) * MAGNESIUM BLOOD(Performed 05/31/2015) * COMPREHENSIVE METABOLIC PANEL(Performed 05/31/2015) * CBC W AUTO DIFFERENTIAL(Performed 05/31/2015) * DOUG-ARRIAZA VIRUS PCR QUANT BLOOD/CSF(Performed 05/31/2015) * RBC MORPHOLOGY(Performed 05/25/2015) * CBC W AUTO DIFFERENTIAL(Performed 05/25/2015) * COMPREHENSIVE METABOLIC PANEL(Performed 05/25/2015) * PHOSPHORUS BLOOD(Performed 05/25/2015) * MAGNESIUM BLOOD(Performed 05/25/2015) * CBC W AUTO DIFFERENTIAL(Performed 05/25/2015) * DOUG-ARRIAZA VIRUS PCR QUANT BLOOD/CSF(Performed 05/25/2015) * TACROLIMUS LEVEL(Performed 05/17/2015) * RBC MORPHOLOGY(Performed 05/17/2015) * CBC W AUTO DIFFERENTIAL(Performed 05/17/2015) * CBC W AUTO DIFFERENTIAL(Performed 05/17/2015) * DOUG-ARRIAZA VIRUS PCR QUANT BLOOD/CSF(Performed 05/17/2015) * PHOSPHORUS BLOOD(Performed 05/17/2015) * MAGNESIUM BLOOD(Performed 05/17/2015) * COMPREHENSIVE METABOLIC PANEL(Performed 05/17/2015) * TACROLIMUS LEVEL(Performed 05/10/2015) * RBC MORPHOLOGY(Performed 05/10/2015) * CBC W AUTO DIFFERENTIAL(Performed 05/10/2015) * COMPREHENSIVE METABOLIC PANEL(Performed 05/10/2015) * PHOSPHORUS BLOOD(Performed 05/10/2015) * MAGNESIUM BLOOD(Performed 05/10/2015) * CBC W AUTO DIFFERENTIAL(Performed 05/10/2015) * DOUG-ARRIAZA VIRUS PCR QUANT BLOOD/CSF(Performed 05/10/2015) * TACROLIMUS LEVEL(Performed 05/05/2015) * COMPREHENSIVE METABOLIC PANEL(Performed 05/05/2015) * TACROLIMUS LEVEL(Performed 05/02/2015) * RBC MORPHOLOGY(Performed 05/02/2015) * PHOSPHORUS BLOOD(Performed 05/02/2015) * MAGNESIUM BLOOD(Performed 05/02/2015) * COMPREHENSIVE METABOLIC PANEL(Performed 05/02/2015) * CBC W AUTO DIFFERENTIAL(Performed 05/02/2015) * CBC W AUTO DIFFERENTIAL(Performed 05/02/2015) * DOUG-ARRIAZA VIRUS PCR QUANT BLOOD/CSF(Performed 05/02/2015) * CD4 (ABSOLUTE T4)(Performed 04/25/2015) * CBC W AUTO DIFFERENTIAL(Performed 04/25/2015) * RBC MORPHOLOGY(Performed 04/25/2015) * CBC W AUTO DIFFERENTIAL(Performed 04/25/2015) * TACROLIMUS LEVEL(Performed 04/25/2015) * PHOSPHORUS BLOOD(Performed 04/25/2015) * MAGNESIUM BLOOD(Performed 04/25/2015) * COMPREHENSIVE METABOLIC PANEL(Performed 04/25/2015) * DOUG-ARRIAZA VIRUS PCR QUANT BLOOD/CSF(Performed 04/25/2015) * PHOSPHORUS BLOOD(Performed 04/21/2015) * COMPREHENSIVE METABOLIC PANEL(Performed 04/21/2015) * MAGNESIUM BLOOD(Performed 04/21/2015) * CBC W AUTO DIFFERENTIAL(Performed 04/21/2015) * CBC W AUTO DIFFERENTIAL(Performed 04/21/2015) * CULTURE BLOOD(Performed 04/21/2015) * CULTURE BLOOD(Performed 04/21/2015) * CULTURE BLOOD(Performed 04/21/2015) * TACROLIMUS LEVEL(Performed 04/20/2015) * PHOSPHORUS BLOOD(Performed 04/20/2015) * MAGNESIUM BLOOD(Performed 04/20/2015) * COMPREHENSIVE METABOLIC PANEL(Performed 04/20/2015) * CBC W AUTO DIFFERENTIAL(Performed 04/20/2015) * CBC W AUTO DIFFERENTIAL(Performed 04/20/2015) * CT CHEST WO CONTRAST(Performed 04/19/2015) * URINALYSIS REFLEX TO MICROSCOPIC NO CULTURE(Performed 04/19/2015) * CULTURE BLOOD(Performed 04/19/2015) * CULTURE BLOOD(Performed 04/19/2015) * BCID PANEL(Performed 04/19/2015) * CULTURE URINE(Performed 04/19/2015) * TACROLIMUS LEVEL(Performed 04/19/2015) * CBC W AUTO DIFFERENTIAL(Performed 04/19/2015) * RBC MORPHOLOGY(Performed 04/19/2015) * CBC W AUTO DIFFERENTIAL(Performed 04/19/2015) * DOUG-ARRIAZA VIRUS PCR QUANT BLOOD/CSF(Performed 04/19/2015) * COMPREHENSIVE METABOLIC PANEL(Performed 04/19/2015) * PHOSPHORUS BLOOD(Performed 04/19/2015) * MAGNESIUM BLOOD(Performed 04/19/2015) * GLUCOSE ACCUCHECK(Performed 04/17/2015) * GLUCOSE ACCUCHECK(Performed 04/17/2015) * GLUCOSE ACCUCHECK(Performed 04/17/2015) * TACROLIMUS LEVEL(Performed 04/17/2015) * PHOSPHORUS BLOOD(Performed 04/17/2015) * COMPREHENSIVE METABOLIC PANEL(Performed 04/17/2015) * MAGNESIUM BLOOD(Performed 04/17/2015) * CBC W AUTO DIFFERENTIAL(Performed 04/17/2015) * CBC W AUTO DIFFERENTIAL(Performed 04/17/2015) * GLUCOSE ACCUCHECK(Performed 04/16/2015) * URINALYSIS W/MICROSCOPIC NO CULTURE(Performed 04/16/2015) * GLUCOSE ACCUCHECK(Performed 04/16/2015) * GLUCOSE ACCUCHECK(Performed 04/16/2015) * GLUCOSE ACCUCHECK(Performed 04/16/2015) * TACROLIMUS LEVEL(Performed 04/16/2015) * COMPREHENSIVE METABOLIC PANEL(Performed 04/16/2015) * PHOSPHORUS BLOOD(Performed 04/16/2015) * MAGNESIUM BLOOD(Performed 04/16/2015) * CBC W AUTO DIFFERENTIAL(Performed 04/16/2015) * CBC W AUTO DIFFERENTIAL(Performed 04/16/2015) * GLUCOSE ACCUCHECK(Performed 04/15/2015) * GLUCOSE ACCUCHECK(Performed 04/15/2015) * GLUCOSE ACCUCHECK(Performed 04/15/2015) * CULTURE URINE(Performed 04/15/2015) * TACROLIMUS LEVEL(Performed 04/15/2015) * GLUCOSE ACCUCHECK(Performed 04/15/2015) * ASPERGILLUS GALACTOMANNAN ANTIGEN BLOOD(Performed 04/15/2015) * COMPREHENSIVE METABOLIC PANEL(Performed 04/15/2015) * MAGNESIUM BLOOD(Performed 04/15/2015) * PHOSPHORUS BLOOD(Performed 04/15/2015) * CBC W AUTO DIFFERENTIAL(Performed 04/15/2015) * CBC W AUTO DIFFERENTIAL(Performed 04/15/2015) * CULTURE BLOOD(Performed 04/14/2015) * CULTURE BLOOD(Performed 04/14/2015) * XR CHEST 1VW PORTABLE(Performed 04/14/2015) * GLUCOSE ACCUCHECK(Performed 04/14/2015) * GLUCOSE ACCUCHECK(Performed 04/14/2015) * PATHOLOGY TISSUE(Performed 04/14/2015) * HCG URINE QUALITATIVE - POCT (IP) [facility]H(Performed 04/14/2015) * CYTOLOGY NON-OFFICER CAPTAIN PANEL (STL)(Performed 04/14/2015) * FLOW CYTOMETRY PANEL(Performed 04/14/2015) * ASPERGILLUS GALACTOMANNAN ANTIGEN BLOOD(Performed 04/14/2015) * CULTURE BRONCHIAL BRUSHINGS QUANT(Performed 04/14/2015) * CELL COUNT W DIFFERENTIAL FLUID(Performed 04/14/2015) * MANUAL DIFFERENTIAL REVIEWED(Performed 04/14/2015) * DIFFERENTIAL MANUAL FLUID(Performed 04/14/2015) * CELL COUNT FLUID(Performed 04/14/2015) * VIRAL CULTURE MISC(Performed 04/14/2015) * CULTURE LEGIONELLA(Performed 04/14/2015) * VIRAL RESPIRATORY PANEL BY RT-PCR(Performed 04/14/2015) * CULTURE AEROBIC(Performed 04/14/2015) * CULTURE AFB+SMEAR(Performed 04/14/2015) * CULTURE FUNGUS OTHER+FUNGUS SMEAR(Performed 04/14/2015) * CULTURE BRONCHOALVEOLAR LAVAGE QNT+GRAM STAIN(Performed 04/14/2015) * GRAM STAIN SMEAR(Performed 04/14/2015) * CULTURE AFB+SMEAR(Performed 04/14/2015) * CULTURE FUNGUS OTHER+FUNGUS SMEAR(Performed 04/14/2015) * CYTOLOGY NON-OFFICER CAPTAIN PANEL (STL)(Performed 04/14/2015) * TACROLIMUS LEVEL(Performed 04/14/2015) * GLUCOSE ACCUCHECK(Performed 04/14/2015) * HISTOPLASMA GALACTOMANNAN AG URINE(Performed 04/14/2015) * HCG URINE QUALITATIVE(Performed 04/14/2015) * STREP PNEUMONIAE ANTIGEN URINE/CSF(Performed 04/14/2015) * LEGIONELLA ANTIGEN URINE(Performed 04/14/2015) * TYPE + SCREEN PANEL(Performed 04/14/2015) * CYTOMEGALOVIRUS ANTIBODY IGM BLOOD(Performed 04/14/2015) * CYTOMEGALOVIRUS ANTIBODY IGG BLOOD(Performed 04/14/2015) * HIV-1 HIV-2 ANTIGEN/ANTIBODY(Performed 04/14/2015) * COMPREHENSIVE METABOLIC PANEL(Performed 04/14/2015) * MAGNESIUM BLOOD(Performed 04/14/2015) * PHOSPHORUS BLOOD(Performed 04/14/2015) * LDH BLOOD(Performed 04/14/2015) * CBC W AUTO DIFFERENTIAL(Performed 04/14/2015) * CBC W AUTO DIFFERENTIAL(Performed 04/14/2015) * CYTOMEGALOVIRUS DNA RT-PCR QUANT(Performed 04/14/2015) * GLUCOSE ACCUCHECK(Performed 04/13/2015) * GLUCOSE ACCUCHECK(Performed 04/13/2015) * GLUCOSE ACCUCHECK(Performed 04/13/2015) * TACROLIMUS LEVEL(Performed 04/13/2015) * GLUCOSE ACCUCHECK(Performed 04/13/2015) * COMPREHENSIVE METABOLIC PANEL(Performed 04/13/2015) * MAGNESIUM BLOOD(Performed 04/13/2015) * PHOSPHORUS BLOOD(Performed 04/13/2015) * CBC W AUTO DIFFERENTIAL(Performed 04/13/2015) * CBC W AUTO DIFFERENTIAL(Performed 04/13/2015) * PT-INR SLH(Performed 04/13/2015) * GLUCOSE ACCUCHECK(Performed 04/12/2015) * GLUCOSE ACCUCHECK(Performed 04/12/2015) * POST TRANSPLANT ENGRAFTMENT ANALYSIS(Performed 04/12/2015) * LEAD BLOOD(Performed 04/12/2015) * FERRITIN(Performed 04/12/2015) * IRON BLOOD(Performed 04/12/2015) * TRANSFERRIN(Performed 04/12/2015) * COMPLETE PFT W/WO BRONCHODILATOR(Performed 04/12/2015) * CT CHEST WO CONTRAST(Performed 04/12/2015) * GLUCOSE ACCUCHECK(Performed 04/12/2015) * ACTH 60 MINUTES(Performed 04/12/2015) * ALDOSTERONE BLOOD(Performed 04/12/2015) * ACTH 30 MINUTES(Performed 04/12/2015) * ACTH(Performed 04/12/2015) * ACTH CORTISOL BASELINE(Performed 04/12/2015) * ACTH(Performed 04/12/2015) * GLUCOSE ACCUCHECK(Performed 04/12/2015) * HEMOGLOBIN A1C(Performed 04/12/2015) * TACROLIMUS LEVEL(Performed 04/12/2015) * FRUCTOSAMINE(Performed 04/11/2015) * COMPREHENSIVE METABOLIC PANEL(Performed 04/11/2015) * MAGNESIUM BLOOD(Performed 04/11/2015) * PHOSPHORUS BLOOD(Performed 04/11/2015) * CBC W AUTO DIFFERENTIAL(Performed 04/11/2015) * CBC W AUTO DIFFERENTIAL(Performed 04/11/2015) * GLUCOSE ACCUCHECK(Performed 04/11/2015) * GLUCOSE ACCUCHECK(Performed 04/11/2015) * GLUCOSE ACCUCHECK(Performed 04/11/2015) * XR CHEST 2VW(Performed 04/11/2015) * GLUCOSE ACCUCHECK(Performed 04/11/2015) * TACROLIMUS LEVEL(Performed 04/11/2015) * COMPREHENSIVE METABOLIC PANEL(Performed 04/11/2015) * MAGNESIUM BLOOD(Performed 04/11/2015) * PHOSPHORUS BLOOD(Performed 04/11/2015) * CBC W AUTO DIFFERENTIAL(Performed 04/11/2015) * CBC W AUTO DIFFERENTIAL(Performed 04/11/2015) * DOUG-ARRIAZA VIRUS PCR QUANT BLOOD/CSF(Performed 04/11/2015) * GLUCOSE ACCUCHECK(Performed 04/10/2015) * CULTURE BLOOD(Performed 04/10/2015) * CULTURE BLOOD(Performed 04/10/2015) * TACROLIMUS LEVEL(Performed 04/10/2015) * COMPREHENSIVE METABOLIC PANEL(Performed 04/10/2015) * PHOSPHORUS BLOOD(Performed 04/10/2015) * MAGNESIUM BLOOD(Performed 04/10/2015) * CBC W AUTO DIFFERENTIAL(Performed 04/10/2015) * CBC W AUTO DIFFERENTIAL(Performed 04/10/2015) * CULTURE BLOOD(Performed 04/10/2015) * LAB MISC TEST(Performed 04/05/2015) * INFLUENZA A+B PCR(Performed 04/05/2015) * INFLUENZA A+B ANTIGEN RAPID(Performed 04/05/2015) * TACROLIMUS LEVEL(Performed 04/05/2015) * COMPREHENSIVE METABOLIC PANEL(Performed 04/05/2015) * PHOSPHORUS BLOOD(Performed 04/05/2015) * MAGNESIUM BLOOD(Performed 04/05/2015) * CBC W AUTO DIFFERENTIAL(Performed 04/05/2015) * CBC W AUTO DIFFERENTIAL(Performed 04/05/2015) * DOUG-ARRIAZA VIRUS PCR QUANT BLOOD/CSF(Performed 04/05/2015) * CULTURE BLOOD(Performed 04/05/2015) * CULTURE BLOOD(Performed 04/05/2015) * CULTURE BLOOD(Performed 04/05/2015) * TACROLIMUS LEVEL(Performed 04/01/2015) * COMPREHENSIVE METABOLIC PANEL(Performed 04/01/2015) * MAGNESIUM BLOOD(Performed 04/01/2015) * PHOSPHORUS BLOOD(Performed 04/01/2015) * CBC W AUTO DIFFERENTIAL(Performed 04/01/2015) * CBC W AUTO DIFFERENTIAL(Performed 04/01/2015) * HEPATITIS C RNA QUANTITATIVE(Performed 03/29/2015) * HEPATITIS B DNA QUANT(Performed 03/29/2015) * DRUG ABUSE PANEL 10-20+ETHANOL URINE NO CONFIRM(Performed 03/29/2015) * CYTOMEGALOVIRUS DNA RT-PCR QUANT(Performed 03/29/2015) * TACROLIMUS LEVEL(Performed 03/29/2015) * CBC W AUTO DIFFERENTIAL(Performed 03/29/2015) * RBC MORPHOLOGY(Performed 03/29/2015) * COMPREHENSIVE METABOLIC PANEL(Performed 03/29/2015) * PHOSPHORUS BLOOD(Performed 03/29/2015) * MAGNESIUM BLOOD(Performed 03/29/2015) * CBC W AUTO DIFFERENTIAL(Performed 03/29/2015) * DOUG-ARRIAZA VIRUS PCR QUANT BLOOD/CSF(Performed 03/29/2015) * TACROLIMUS LEVEL(Performed 03/23/2015) * CBC W AUTO DIFFERENTIAL(Performed 03/23/2015) * RBC MORPHOLOGY(Performed 03/23/2015) * COMPREHENSIVE METABOLIC PANEL(Performed 03/23/2015) * PHOSPHORUS BLOOD(Performed 03/23/2015) * MAGNESIUM BLOOD(Performed 03/23/2015) * CBC W AUTO DIFFERENTIAL(Performed 03/23/2015) * TACROLIMUS LEVEL(Performed 03/20/2015) * COMPREHENSIVE METABOLIC PANEL(Performed 03/20/2015) * PHOSPHORUS BLOOD(Performed 03/20/2015) * MAGNESIUM BLOOD(Performed 03/20/2015) * CBC W AUTO DIFFERENTIAL(Performed 03/20/2015) * CBC W AUTO DIFFERENTIAL(Performed 03/20/2015) * DOUG-ARRIAZA VIRUS PCR QUANT BLOOD/CSF(Performed 03/20/2015) * DOUG-ARRIAZA VIRUS PCR QUANT BLOOD/CSF(Performed 03/15/2015) * TACROLIMUS LEVEL(Performed 03/15/2015) * CBC W AUTO DIFFERENTIAL(Performed 03/15/2015) * RBC MORPHOLOGY(Performed 03/15/2015) * COMPREHENSIVE METABOLIC PANEL(Performed 03/15/2015) * CBC W AUTO DIFFERENTIAL(Performed 03/15/2015) * PHOSPHORUS BLOOD(Performed 03/15/2015) * MAGNESIUM BLOOD(Performed 03/15/2015) * TACROLIMUS LEVEL(Performed 03/10/2015) * RBC MORPHOLOGY(Performed 03/10/2015) * CBC W AUTO DIFFERENTIAL(Performed 03/10/2015) * MAGNESIUM BLOOD(Performed 03/10/2015) * PHOSPHORUS BLOOD(Performed 03/10/2015) * COMPREHENSIVE METABOLIC PANEL(Performed 03/10/2015) * CBC W AUTO DIFFERENTIAL(Performed 03/10/2015) * TSH(Performed 03/08/2015) * T4 FREE(Performed 03/08/2015) * T3 FREE(Performed 03/08/2015) * CREATININE BLOOD(Performed 03/08/2015) * URINALYSIS REFLEX TO MICROSCOPIC NO CULTURE(Performed 03/08/2015) * CULTURE URINE(Performed 03/08/2015) * CULTURE BLOOD(Performed 03/08/2015) * CULTURE BLOOD(Performed 03/08/2015) * CBC W AUTO DIFFERENTIAL(Performed 03/08/2015) * RBC MORPHOLOGY(Performed 03/08/2015) * TACROLIMUS LEVEL(Performed 03/08/2015) * FERRITIN(Performed 03/08/2015) * PHOSPHORUS BLOOD(Performed 03/08/2015) * MAGNESIUM BLOOD(Performed 03/08/2015) * IRON BLOOD(Performed 03/08/2015) * TRANSFERRIN(Performed 03/08/2015) * COMPREHENSIVE METABOLIC PANEL(Performed 03/08/2015) * CBC W AUTO DIFFERENTIAL(Performed 03/08/2015) * DOUG-ARRIAZA VIRUS PCR QUANT BLOOD/CSF(Performed 03/08/2015) * XR CHEST 2VW(Performed 03/01/2015) * CBC W AUTO DIFFERENTIAL(Performed 03/01/2015) * RBC MORPHOLOGY(Performed 03/01/2015) * CBC W AUTO DIFFERENTIAL(Performed 03/01/2015) * TACROLIMUS LEVEL(Performed 03/01/2015) * COMPREHENSIVE METABOLIC PANEL(Performed 03/01/2015) * PHOSPHORUS BLOOD(Performed 03/01/2015) * MAGNESIUM BLOOD(Performed 03/01/2015) * DOUG-ARRIAZA VIRUS PCR QUANT BLOOD/CSF(Performed 03/01/2015) * INFLUENZA A+B ANTIGEN RAPID(Performed 02/20/2015) * LAB MISC TEST(Performed 02/20/2015) * TACROLIMUS LEVEL(Performed 02/20/2015) * CBC W AUTO DIFFERENTIAL(Performed 02/20/2015) * CBC W AUTO DIFFERENTIAL(Performed 02/20/2015) * PHOSPHORUS BLOOD(Performed 02/20/2015) * MAGNESIUM BLOOD(Performed 02/20/2015) * COMPREHENSIVE METABOLIC PANEL(Performed 02/20/2015) * DOUG-ARRIAZA VIRUS PCR QUANT BLOOD/CSF(Performed 02/20/2015) * CD4 (ABSOLUTE T4)(Performed 02/15/2015) * VITAMIN D 25-HYDROXY(Performed 02/15/2015) * TACROLIMUS LEVEL(Performed 02/15/2015) * PHOSPHORUS BLOOD(Performed 02/15/2015) * MAGNESIUM BLOOD(Performed 02/15/2015) * CBC W AUTO DIFFERENTIAL(Performed 02/15/2015) * CBC W AUTO DIFFERENTIAL(Performed 02/15/2015) * COMPREHENSIVE METABOLIC PANEL(Performed 02/15/2015) * DOUG-ARRIAZA VIRUS PCR QUANT BLOOD/CSF(Performed 02/15/2015) * LAB MISC TEST(Performed 02/08/2015) * INFLUENZA A+B PCR(Performed 02/08/2015) * INFLUENZA A+B ANTIGEN RAPID(Performed 02/08/2015) * RBC MORPHOLOGY(Performed 02/08/2015) * CBC W AUTO DIFFERENTIAL(Performed 02/08/2015) * TACROLIMUS LEVEL(Performed 02/08/2015) * PHOSPHORUS BLOOD(Performed 02/08/2015) * MAGNESIUM BLOOD(Performed 02/08/2015) * COMPREHENSIVE METABOLIC PANEL(Performed 02/08/2015) * CBC W AUTO DIFFERENTIAL(Performed 02/08/2015) * DOUG-ARRIAZA VIRUS PCR QUANT BLOOD/CSF(Performed 02/08/2015) * TACROLIMUS LEVEL(Performed 02/01/2015) * CBC W AUTO DIFFERENTIAL(Performed 02/01/2015) * RBC MORPHOLOGY(Performed 02/01/2015) * COMPREHENSIVE METABOLIC PANEL(Performed 02/01/2015) * PHOSPHORUS BLOOD(Performed 02/01/2015) * MAGNESIUM BLOOD(Performed 02/01/2015) * CBC W AUTO DIFFERENTIAL(Performed 02/01/2015) * TACROLIMUS LEVEL(Performed 01/27/2015) * COMPREHENSIVE METABOLIC PANEL(Performed 01/27/2015) * PHOSPHORUS BLOOD(Performed 01/27/2015) * MAGNESIUM BLOOD(Performed 01/27/2015) * CBC W AUTO DIFFERENTIAL(Performed 01/27/2015) * CBC W AUTO DIFFERENTIAL(Performed 01/27/2015) * CULTURE STOOL+ E COLI SHIGA-LIKE TOXIN(Performed 01/24/2015) * SLY BLOOD SCREEN(Performed 01/24/2015) * GLUCOSE ACCUCHECK(Performed 01/24/2015) * GLUCOSE ACCUCHECK(Performed 01/24/2015) * CBC W AUTO DIFFERENTIAL(Performed 01/24/2015) * HEPATITIS B SURFACE ANTIBODY QUANT(Performed 01/24/2015) * SMOOTH MUSCLE ANTIBODY(Performed 01/24/2015) * TACROLIMUS LEVEL(Performed 01/24/2015) * HEPATITIS B CORE ANTIBODY TOTAL(Performed 01/24/2015) * HEPATITIS C ANTIBODY(Performed 01/24/2015) * HEPATITIS B SURFACE ANTIGEN W RFLX CONFIRMATION(Performed 01/24/2015) * FOLATE(Performed 01/24/2015) * VITAMIN B12(Performed 01/24/2015) * TRANSFERRIN(Performed 01/24/2015) * IRON BLOOD(Performed 01/24/2015) * FERRITIN(Performed 01/24/2015) * MAGNESIUM BLOOD(Performed 01/24/2015) * COMPREHENSIVE METABOLIC PANEL(Performed 01/24/2015) * PHOSPHORUS BLOOD(Performed 01/24/2015) * C-REACTIVE PROTEIN(Performed 01/24/2015) * ERYTHROCYTE SEDIMENTATION RATE(Performed 01/24/2015) * CBC W AUTO DIFFERENTIAL(Performed 01/24/2015) * HAPTOGLOBIN(Performed 01/24/2015) * RETIC COUNT(Performed 01/24/2015) * GLUCOSE ACCUCHECK(Performed 01/23/2015) * GLUCOSE ACCUCHECK(Performed 01/23/2015) * PATHOLOGY TISSUE(Performed 01/23/2015) * HCG BETA BLOOD QUANTITATIVE(Performed 01/23/2015) * GLUCOSE ACCUCHECK(Performed 01/23/2015) * PTT SLH(Performed 01/23/2015) * PT-INR SLH(Performed 01/23/2015) * GLUCOSE ACCUCHECK(Performed 01/23/2015) * TACROLIMUS LEVEL(Performed 01/23/2015) * GLUCOSE ACCUCHECK(Performed 01/23/2015) * HEMOGLOBIN A1C(Performed 01/23/2015) * PHOSPHORUS BLOOD(Performed 01/23/2015) * MAGNESIUM BLOOD(Performed 01/23/2015) * COMPREHENSIVE METABOLIC PANEL(Performed 01/23/2015) * GLUCOSE ACCUCHECK(Performed 01/22/2015) * C DIFFICILE BY PCR(Performed 01/22/2015) * C DIFFICILE GDH AG + TOXIN A+B(Performed 01/22/2015) * GLUCOSE ACCUCHECK(Performed 01/22/2015) * GLUCOSE ACCUCHECK(Performed 01/22/2015) * HEMOGLOBIN A1C(Performed 01/22/2015) * TACROLIMUS LEVEL(Performed 01/22/2015) * CBC W AUTO DIFFERENTIAL(Performed 01/22/2015) * RBC MORPHOLOGY(Performed 01/22/2015) * PHOSPHORUS BLOOD(Performed 01/22/2015) * MAGNESIUM BLOOD(Performed 01/22/2015) * COMPREHENSIVE METABOLIC PANEL(Performed 01/22/2015) * CBC W AUTO DIFFERENTIAL(Performed 01/22/2015) * GLUCOSE ACCUCHECK(Performed 01/22/2015) * GLUCOSE ACCUCHECK(Performed 01/21/2015) * GLUCOSE ACCUCHECK(Performed 01/21/2015) * URINALYSIS REFLEX TO MICROSCOPIC NO CULTURE(Performed 01/21/2015) * GLUCOSE ACCUCHECK(Performed 01/21/2015) * CULTURE BLOOD(Performed 01/21/2015) * CULTURE BLOOD(Performed 01/21/2015) * RBC MORPHOLOGY(Performed 01/21/2015) * CBC W AUTO DIFFERENTIAL(Performed 01/21/2015) * CBC W AUTO DIFFERENTIAL(Performed 01/21/2015) * CULTURE BLOOD(Performed 01/21/2015) * CBC W AUTO DIFFERENTIAL(Performed 01/21/2015) * CBC W AUTO DIFFERENTIAL(Performed 01/21/2015) * PHOSPHORUS BLOOD(Performed 01/21/2015) * MAGNESIUM BLOOD(Performed 01/21/2015) * COMPREHENSIVE METABOLIC PANEL(Performed 01/21/2015) * TACROLIMUS LEVEL(Performed 01/17/2015) * CBC W AUTO DIFFERENTIAL(Performed 01/17/2015) * DIFFERENTIAL MANUAL(Performed 01/17/2015) * COMPREHENSIVE METABOLIC PANEL(Performed 01/17/2015) * PHOSPHORUS BLOOD(Performed 01/17/2015) * MAGNESIUM BLOOD(Performed 01/17/2015) * CBC W AUTO DIFFERENTIAL(Performed 01/17/2015) * TACROLIMUS LEVEL(Performed 01/13/2015) * COMPREHENSIVE METABOLIC PANEL(Performed 01/13/2015) * TACROLIMUS LEVEL(Performed 01/11/2015) * CBC W AUTO DIFFERENTIAL(Performed 01/11/2015) * RBC MORPHOLOGY(Performed 01/11/2015) * PHOSPHORUS BLOOD(Performed 01/11/2015) * MAGNESIUM BLOOD(Performed 01/11/2015) * COMPREHENSIVE METABOLIC PANEL(Performed 01/11/2015) * CBC W AUTO DIFFERENTIAL(Performed 01/11/2015) * TACROLIMUS LEVEL(Performed 01/04/2015) * DIFFERENTIAL MANUAL(Performed 01/04/2015) * CBC W AUTO DIFFERENTIAL(Performed 01/04/2015) * CBC W AUTO DIFFERENTIAL(Performed 01/04/2015) * COMPREHENSIVE METABOLIC PANEL(Performed 01/04/2015) * PHOSPHORUS BLOOD(Performed 01/04/2015) * MAGNESIUM BLOOD(Performed 01/04/2015) * XR SACRUM AND COCCYX(Performed 12/28/2014) * XR LUMBAR SPINE 2 OR 3VW(Performed 12/28/2014) * PFT-LAB(Performed 12/28/2014) * DEXA BONE DENSITY AXIAL SKELETON(Performed 12/28/2014) * TACROLIMUS LEVEL(Performed 12/28/2014) * COMPREHENSIVE METABOLIC PANEL(Performed 12/28/2014) * CBC W AUTO DIFFERENTIAL(Performed 12/28/2014) * DIFFERENTIAL MANUAL(Performed 12/28/2014) * PHOSPHORUS BLOOD(Performed 12/28/2014) * MAGNESIUM BLOOD(Performed 12/28/2014) * CBC W AUTO DIFFERENTIAL(Performed 12/28/2014) * GLUCOSE ACCUCHECK(Performed 12/21/2014) * GLUCOSE ACCUCHECK(Performed 12/21/2014) * TACROLIMUS LEVEL(Performed 12/21/2014) * DIFFERENTIAL MANUAL(Performed 12/21/2014) * CBC W AUTO DIFFERENTIAL(Performed 12/21/2014) * COMPREHENSIVE METABOLIC PANEL(Performed 12/21/2014) * PHOSPHORUS BLOOD(Performed 12/21/2014) * MAGNESIUM BLOOD(Performed 12/21/2014) * CBC W AUTO DIFFERENTIAL(Performed 12/21/2014) * GLUCOSE ACCUCHECK(Performed 12/17/2014) * MRI PELVIS WWO CONTRAST(Performed 12/17/2014) * GLUCOSE ACCUCHECK(Performed 12/17/2014) * TACROLIMUS LEVEL(Performed 12/17/2014) * CBC W AUTO DIFFERENTIAL(Performed 12/17/2014) * DIFFERENTIAL MANUAL(Performed 12/17/2014) * COMPREHENSIVE METABOLIC PANEL(Performed 12/17/2014) * PHOSPHORUS BLOOD(Performed 12/17/2014) * MAGNESIUM BLOOD(Performed 12/17/2014) * CBC W AUTO DIFFERENTIAL(Performed 12/17/2014) * GLUCOSE ACCUCHECK(Performed 12/16/2014) * GLUCOSE ACCUCHECK(Performed 12/16/2014) * CULTURE BLOOD(Performed 12/16/2014) * CULTURE BLOOD(Performed 12/16/2014) * CULTURE BLOOD(Performed 12/16/2014) * CBC W AUTO DIFFERENTIAL(Performed 12/16/2014) * DIFFERENTIAL MANUAL(Performed 12/16/2014) * COMPREHENSIVE METABOLIC PANEL(Performed 12/16/2014) * PHOSPHORUS BLOOD(Performed 12/16/2014) * MAGNESIUM BLOOD(Performed 12/16/2014) * CBC W AUTO DIFFERENTIAL(Performed 12/16/2014) * CYTOGENETICS CANCER PANEL(Performed 12/14/2014) Performed for AML (acute myeloblastic leukemia) [ICD-9-CM] * HOLD SPECIMEN DNA TISSUE(Performed 12/14/2014) * CHROMOSOME ANALYSIS PANEL(Performed 12/14/2014) * CYTOGENETICS CANCER PANEL(Performed 12/14/2014) * FLOW CYTOMETRY PANEL(Performed 12/14/2014) * POST TRANSPLANT ENGRAFTMENT ANALYSIS(Performed 12/14/2014) * PATHOLOGY TISSUE(Performed 12/14/2014) * TACROLIMUS LEVEL(Performed 12/14/2014) * COMPREHENSIVE METABOLIC PANEL(Performed 12/14/2014) * PHOSPHORUS BLOOD(Performed 12/14/2014) * MAGNESIUM BLOOD(Performed 12/14/2014) * DIFFERENTIAL MANUAL(Performed 12/14/2014) * CBC W AUTO DIFFERENTIAL(Performed 12/14/2014) * CBC W AUTO DIFFERENTIAL(Performed 12/14/2014) * POST TRANSPLANT ENGRAFTMENT ANALYSIS(Performed 12/14/2014) * TACROLIMUS LEVEL(Performed 12/10/2014) * COMPREHENSIVE METABOLIC PANEL(Performed 12/10/2014) * CBC W AUTO DIFFERENTIAL(Performed 12/10/2014) * RBC MORPHOLOGY(Performed 12/10/2014) * PHOSPHORUS BLOOD(Performed 12/10/2014) * MAGNESIUM BLOOD(Performed 12/10/2014) * CBC W AUTO DIFFERENTIAL(Performed 12/10/2014) * TACROLIMUS LEVEL(Performed 12/07/2014) * CBC W AUTO DIFFERENTIAL(Performed 12/07/2014) * DIFFERENTIAL MANUAL(Performed 12/07/2014) * COMPREHENSIVE METABOLIC PANEL(Performed 12/07/2014) * PHOSPHORUS BLOOD(Performed 12/07/2014) * MAGNESIUM BLOOD(Performed 12/07/2014) * CBC W AUTO DIFFERENTIAL(Performed 12/07/2014) * TACROLIMUS LEVEL(Performed 12/03/2014) * DIFFERENTIAL MANUAL(Performed 12/03/2014) * CBC W AUTO DIFFERENTIAL(Performed 12/03/2014) * COMPREHENSIVE METABOLIC PANEL(Performed 12/03/2014) * PHOSPHORUS BLOOD(Performed 12/03/2014) * MAGNESIUM BLOOD(Performed 12/03/2014) * CBC W AUTO DIFFERENTIAL(Performed 12/03/2014) * TACROLIMUS LEVEL(Performed 11/30/2014) * RBC MORPHOLOGY(Performed 11/30/2014) * CBC W AUTO DIFFERENTIAL(Performed 11/30/2014) * COMPREHENSIVE METABOLIC PANEL(Performed 11/30/2014) * PHOSPHORUS BLOOD(Performed 11/30/2014) * MAGNESIUM BLOOD(Performed 11/30/2014) * CBC W AUTO DIFFERENTIAL(Performed 11/30/2014) * TACROLIMUS LEVEL(Performed 11/26/2014) * CBC W AUTO DIFFERENTIAL(Performed 11/26/2014) * RBC MORPHOLOGY(Performed 11/26/2014) * COMPREHENSIVE METABOLIC PANEL(Performed 11/26/2014) * PHOSPHORUS BLOOD(Performed 11/26/2014) * MAGNESIUM BLOOD(Performed 11/26/2014) * CBC W AUTO DIFFERENTIAL(Performed 11/26/2014) * TACROLIMUS LEVEL(Performed 11/21/2014) * CBC W AUTO DIFFERENTIAL(Performed 11/21/2014) * RBC MORPHOLOGY(Performed 11/21/2014) * COMPREHENSIVE METABOLIC PANEL(Performed 11/21/2014) * PHOSPHORUS BLOOD(Performed 11/21/2014) * MAGNESIUM BLOOD(Performed 11/21/2014) * CBC W AUTO DIFFERENTIAL(Performed 11/21/2014) * GLUCOSE ACCUCHECK(Performed 11/19/2014) * GLUCOSE ACCUCHECK(Performed 11/19/2014) * GLUCOSE ACCUCHECK(Performed 11/19/2014) * CBC W AUTO DIFFERENTIAL(Performed 11/19/2014) * DIFFERENTIAL MANUAL(Performed 11/19/2014) * CBC W AUTO DIFFERENTIAL(Performed 11/19/2014) * COMPREHENSIVE METABOLIC PANEL(Performed 11/19/2014) * PHOSPHORUS BLOOD(Performed 11/19/2014) * MAGNESIUM BLOOD(Performed 11/19/2014) * GLUCOSE ACCUCHECK(Performed 11/18/2014) * GLUCOSE ACCUCHECK(Performed 11/18/2014) * GLUCOSE ACCUCHECK(Performed 11/18/2014) * GLUCOSE ACCUCHECK(Performed 11/18/2014) * TACROLIMUS LEVEL(Performed 11/18/2014) * SLY BLOOD SCREEN(Performed 11/18/2014) * DIFFERENTIAL MANUAL(Performed 11/18/2014) * CBC W AUTO DIFFERENTIAL(Performed 11/18/2014) * CYCLIC CITRULLINATED PEPTIDE(CCP) AB IGG(Performed 11/18/2014) * PHOSPHORUS BLOOD(Performed 11/18/2014) * MAGNESIUM BLOOD(Performed 11/18/2014) * COMPREHENSIVE METABOLIC PANEL(Performed 11/18/2014) * RHEUMATOID FACTOR BLOOD QUANTITATIVE(Performed 11/18/2014) * CBC W AUTO DIFFERENTIAL(Performed 11/18/2014) * GLUCOSE ACCUCHECK(Performed 11/17/2014) * CULTURE BLOOD(Performed 11/17/2014) * CULTURE BLOOD(Performed 11/17/2014) * CULTURE BLOOD(Performed 11/17/2014) * GLUCOSE ACCUCHECK(Performed 11/17/2014) * XR CHEST 2VW(Performed 11/17/2014) * GLUCOSE ACCUCHECK(Performed 11/17/2014) * GLUCOSE ACCUCHECK(Performed 11/17/2014) * HEMOGLOBIN A1C(Performed 11/16/2014) * TACROLIMUS LEVEL(Performed 11/16/2014) * CBC W AUTO DIFFERENTIAL(Performed 11/16/2014) * DIFFERENTIAL MANUAL(Performed 11/16/2014) * COMPREHENSIVE METABOLIC PANEL(Performed 11/16/2014) * PHOSPHORUS BLOOD(Performed 11/16/2014) * MAGNESIUM BLOOD(Performed 11/16/2014) * CBC W AUTO DIFFERENTIAL(Performed 11/16/2014) * TACROLIMUS LEVEL(Performed 11/12/2014) * CBC W AUTO DIFFERENTIAL(Performed 11/12/2014) * DIFFERENTIAL MANUAL(Performed 11/12/2014) * COMPREHENSIVE METABOLIC PANEL(Performed 11/12/2014) * PHOSPHORUS BLOOD(Performed 11/12/2014) * MAGNESIUM BLOOD(Performed 11/12/2014) * CBC W AUTO DIFFERENTIAL(Performed 11/12/2014) * TACROLIMUS LEVEL(Performed 11/09/2014) * T4 FREE(Performed 11/09/2014) * T3 FREE(Performed 11/09/2014) * TSH(Performed 11/09/2014) * CBC W AUTO DIFFERENTIAL(Performed 11/09/2014) * DIFFERENTIAL MANUAL(Performed 11/09/2014) * COMPREHENSIVE METABOLIC PANEL(Performed 11/09/2014) * PHOSPHORUS BLOOD(Performed 11/09/2014) * MAGNESIUM BLOOD(Performed 11/09/2014) * CBC W AUTO DIFFERENTIAL(Performed 11/09/2014) * LAB MISC TEST(Performed 11/05/2014) * TACROLIMUS LEVEL(Performed 11/05/2014) * CBC W AUTO DIFFERENTIAL(Performed 11/05/2014) * DIFFERENTIAL MANUAL(Performed 11/05/2014) * CBC W AUTO DIFFERENTIAL(Performed 11/05/2014) * COMPREHENSIVE METABOLIC PANEL(Performed 11/05/2014) * PHOSPHORUS BLOOD(Performed 11/05/2014) * MAGNESIUM BLOOD(Performed 11/05/2014) * DOUG-ARRIAZA VIRUS PCR QUANT BLOOD/CSF(Performed 11/05/2014) * INFLUENZA B ANTIGEN RAPID(Performed 11/02/2014) * INFLUENZA A ANTIGEN RAPID(Performed 11/02/2014) * CULTURE STREP GROUP A(Performed 11/02/2014) * INFLUENZA A+B PCR(Performed 11/02/2014) * STREP A SCREEN DIRECT(Performed 11/02/2014) * TACROLIMUS LEVEL(Performed 11/02/2014) * DIFFERENTIAL MANUAL(Performed 11/02/2014) * CBC W AUTO DIFFERENTIAL(Performed 11/02/2014) * COMPREHENSIVE METABOLIC PANEL(Performed 11/02/2014) * PHOSPHORUS BLOOD(Performed 11/02/2014) * MAGNESIUM BLOOD(Performed 11/02/2014) * CBC W AUTO DIFFERENTIAL(Performed 11/02/2014) * URINALYSIS REFLEX TO MICROSCOPIC NO CULTURE(Performed 10/29/2014) * CULTURE URINE(Performed 10/29/2014) * CULTURE BLOOD(Performed 10/29/2014) * CULTURE BLOOD(Performed 10/29/2014) * TACROLIMUS LEVEL(Performed 10/29/2014) * DIFFERENTIAL MANUAL(Performed 10/29/2014) * CBC W AUTO DIFFERENTIAL(Performed 10/29/2014) * IGG BLOOD(Performed 10/29/2014) * COMPREHENSIVE METABOLIC PANEL(Performed 10/29/2014) * PHOSPHORUS BLOOD(Performed 10/29/2014) * MAGNESIUM BLOOD(Performed 10/29/2014) * CBC W AUTO DIFFERENTIAL(Performed 10/29/2014) * DOUG-ARRIAZA VIRUS PCR QUANT BLOOD/CSF(Performed 10/29/2014) * TACROLIMUS LEVEL(Performed 10/26/2014) * DIFFERENTIAL MANUAL(Performed 10/26/2014) * CBC W AUTO DIFFERENTIAL(Performed 10/26/2014) * COMPREHENSIVE METABOLIC PANEL(Performed 10/26/2014) * PHOSPHORUS BLOOD(Performed 10/26/2014) * MAGNESIUM BLOOD(Performed 10/26/2014) * CBC W AUTO DIFFERENTIAL(Performed 10/26/2014) * DOUG-ARRIAZA VIRUS PCR QUANT BLOOD/CSF(Performed 10/26/2014) * CYTOMEGALOVIRUS DNA RT-PCR QUANT(Performed 10/26/2014) * DOUG-ARRIAZA VIRUS PCR QUANT BLOOD/CSF(Performed 10/22/2014) * TACROLIMUS LEVEL(Performed 10/22/2014) * DIFFERENTIAL MANUAL(Performed 10/22/2014) * CBC W AUTO DIFFERENTIAL(Performed 10/22/2014) * PHOSPHORUS BLOOD(Performed 10/22/2014) * MAGNESIUM BLOOD(Performed 10/22/2014) * COMPREHENSIVE METABOLIC PANEL(Performed 10/22/2014) * CBC W AUTO DIFFERENTIAL(Performed 10/22/2014) * BABITA DIRECT(Performed 10/19/2014) * SEROTONIN RELEASE ASSAY PANEL(Performed 10/19/2014) * G6PD QUANTITATIVE(Performed 10/19/2014) * COPPER BLOOD(Performed 10/19/2014) * HEPARIN PLATELET INDUCED ANTIBODY(Performed 10/19/2014) * HAPTOGLOBIN(Performed 10/19/2014) * LDH BLOOD(Performed 10/19/2014) * D-DIMER(Performed 10/19/2014) * PTT SLH(Performed 10/19/2014) * FIBRINOGEN ACTIVITY(Performed 10/19/2014) * PT-INR SLH(Performed 10/19/2014) * CYTOMEGALOVIRUS DNA RT-PCR QUANT(Performed 10/19/2014) * TACROLIMUS LEVEL(Performed 10/19/2014) * DIFFERENTIAL MANUAL(Performed 10/19/2014) * CBC W AUTO DIFFERENTIAL(Performed 10/19/2014) * COMPREHENSIVE METABOLIC PANEL(Performed 10/19/2014) * CBC W AUTO DIFFERENTIAL(Performed 10/19/2014) * PHOSPHORUS BLOOD(Performed 10/19/2014) * MAGNESIUM BLOOD(Performed 10/19/2014) * US RETROPERITONEAL COMPLETE(Performed 10/17/2014) * CT CHEST WO CONTRAST(Performed 10/17/2014) * TACROLIMUS LEVEL(Performed 10/17/2014) * HAPTOGLOBIN(Performed 10/17/2014) * COMPREHENSIVE METABOLIC PANEL(Performed 10/17/2014) * CBC W AUTO DIFFERENTIAL(Performed 10/17/2014) * DIFFERENTIAL MANUAL(Performed 10/17/2014) * PHOSPHORUS BLOOD(Performed 10/17/2014) * MAGNESIUM BLOOD(Performed 10/17/2014) * LDH BLOOD(Performed 10/17/2014) * CBC W AUTO DIFFERENTIAL(Performed 10/17/2014) * CULTURE URINE(Performed 10/15/2014) * HAPTOGLOBIN(Performed 10/15/2014) * CREATININE URINE RANDOM(Performed 10/15/2014) * SODIUM URINE RANDOM(Performed 10/15/2014) * PROTEIN URINE RANDOM QUANTITATIVE(Performed 10/15/2014) * LDH BLOOD(Performed 10/15/2014) * URINALYSIS W/MICROSCOPIC NO CULTURE(Performed 10/15/2014) * BK VIRUS PCR QUANTITATIVE URINE(Performed 10/15/2014) * EOSINOPHIL URINE SMEAR(Performed 10/15/2014) * CULTURE BLOOD(Performed 10/15/2014) * CULTURE BLOOD(Performed 10/15/2014) * CULTURE BLOOD(Performed 10/15/2014) * XR CHEST 1VW PORTABLE(Performed 10/15/2014) * METHYLMALONIC ACID BLOOD(Performed 10/15/2014) * HOMOCYSTEINE BLOOD QUANTITATIVE(Performed 10/15/2014) * TACROLIMUS LEVEL(Performed 10/15/2014) * COMPREHENSIVE METABOLIC PANEL(Performed 10/15/2014) * CBC W AUTO DIFFERENTIAL(Performed 10/15/2014) * DIFFERENTIAL MANUAL(Performed 10/15/2014) * PHOSPHORUS BLOOD(Performed 10/15/2014) * MAGNESIUM BLOOD(Performed 10/15/2014) * CBC W AUTO DIFFERENTIAL(Performed 10/15/2014) * DOUG-ARRIAZA VIRUS PCR QUANT BLOOD/CSF(Performed 10/15/2014) * CYTOMEGALOVIRUS DNA RT-PCR QUANT(Performed 10/15/2014) * FOLATE(Performed 10/12/2014) * VITAMIN B12(Performed 10/12/2014) * PTT SLH(Performed 10/12/2014) * D-DIMER(Performed 10/12/2014) * FIBRINOGEN ACTIVITY(Performed 10/12/2014) * PT-INR SLH(Performed 10/12/2014) * LDH BLOOD(Performed 10/12/2014) * CK BLOOD(Performed 10/12/2014) * PATHOLOGY TISSUE(Performed 10/12/2014) * CYTOGENETICS CANCER PANEL(Performed 10/12/2014) * CHROMOSOME ANALYSIS PANEL(Performed 10/12/2014) * HOLD SPECIMEN DNA TISSUE(Performed 10/12/2014) * POST TRANSPLANT ENGRAFTMENT ANALYSIS(Performed 10/12/2014) * FLOW CYTOMETRY PANEL(Performed 10/12/2014) * PARVOVIRUS B19 PCR(Performed 10/12/2014) * HAPTOGLOBIN(Performed 10/12/2014) * DOUG-ARRIAZA VIRUS PCR QUANT BLOOD/CSF(Performed 10/12/2014) * HERPES VIRUS 6 DNA DANIA PCR(Performed 10/12/2014) * ZINC BLOOD(Performed 10/12/2014) * COPPER BLOOD(Performed 10/12/2014) * LAB MISC TEST(Performed 10/12/2014) * POST TRANSPLANT ENGRAFTMENT ANALYSIS(Performed 10/12/2014) * TACROLIMUS LEVEL(Performed 10/12/2014) * CBC W AUTO DIFFERENTIAL(Performed 10/12/2014) * DIFFERENTIAL MANUAL(Performed 10/12/2014) * CBC W AUTO DIFFERENTIAL(Performed 10/12/2014) * PHOSPHORUS BLOOD(Performed 10/12/2014) * MAGNESIUM BLOOD(Performed 10/12/2014) * COMPREHENSIVE METABOLIC PANEL(Performed 10/12/2014) * CYTOMEGALOVIRUS DNA RT-PCR QUANT(Performed 10/12/2014) * CYTOGENETICS CANCER PANEL(Performed 10/12/2014) Performed for AML (acute myeloblastic leukemia) [ICD-9-CM] * PATHOLOGY/GENETICS HISTORICAL-ONBASE(Performed 10/12/2014) * BILIRUBIN DIRECT(Performed 10/08/2014) * LDH BLOOD(Performed 10/08/2014) * RETIC COUNT(Performed 10/08/2014) * TACROLIMUS LEVEL(Performed 10/08/2014) * DIFFERENTIAL MANUAL(Performed 10/08/2014) * CBC W AUTO DIFFERENTIAL(Performed 10/08/2014) * CBC W AUTO DIFFERENTIAL(Performed 10/08/2014) * COMPREHENSIVE METABOLIC PANEL(Performed 10/08/2014) * PHOSPHORUS BLOOD(Performed 10/08/2014) * MAGNESIUM BLOOD(Performed 10/08/2014) * IGG BLOOD(Performed 10/04/2014) * TACROLIMUS LEVEL(Performed 10/04/2014) * COMPREHENSIVE METABOLIC PANEL(Performed 10/04/2014) * PHOSPHORUS BLOOD(Performed 10/04/2014) * MAGNESIUM BLOOD(Performed 10/04/2014) * RBC MORPHOLOGY(Performed 10/04/2014) * CBC W AUTO DIFFERENTIAL(Performed 10/04/2014) * CBC W AUTO DIFFERENTIAL(Performed 10/04/2014) * US ABDOMEN LIMITED(Performed 10/04/2014) * TACROLIMUS LEVEL(Performed 10/01/2014) * IGG BLOOD(Performed 10/01/2014) * CBC W AUTO DIFFERENTIAL(Performed 10/01/2014) * CBC W AUTO DIFFERENTIAL(Performed 10/01/2014) * PHOSPHORUS BLOOD(Performed 10/01/2014) * MAGNESIUM BLOOD(Performed 10/01/2014) * COMPREHENSIVE METABOLIC PANEL(Performed 10/01/2014) * DOUG-ARRIAZA VIRUS PCR QUANT BLOOD/CSF(Performed 10/01/2014) * FIBRINOGEN ACTIVITY(Performed 09/28/2014) * D-DIMER(Performed 09/28/2014) * PTT SLH(Performed 09/28/2014) * PT-INR SLH(Performed 09/28/2014) * COMPREHENSIVE METABOLIC PANEL(Performed 09/28/2014) * HERPES VIRUS 6 DNA DANIA PCR(Performed 09/28/2014) * GGT(Performed 09/28/2014) * DOUG-ARRIAZA VIRUS PCR QUANT BLOOD/CSF(Performed 09/28/2014) * CYTOMEGALOVIRUS DNA RT-PCR QUANT(Performed 09/28/2014) * HEPATITIS B VIRUS DNA QUANT PCR(Performed 09/28/2014) * HEPATITIS C RNA QUANTITATIVE(Performed 09/28/2014) * HEPATITIS A IGM ANTIBODY(Performed 09/28/2014) * COMPREHENSIVE METABOLIC PANEL(Performed 09/28/2014) * TACROLIMUS LEVEL(Performed 09/28/2014) * CBC W AUTO DIFFERENTIAL(Performed 09/28/2014) * DIFFERENTIAL MANUAL(Performed 09/28/2014) * COMPREHENSIVE METABOLIC PANEL(Performed 09/28/2014) * PHOSPHORUS BLOOD(Performed 09/28/2014) * MAGNESIUM BLOOD(Performed 09/28/2014) * CBC W AUTO DIFFERENTIAL(Performed 09/28/2014) * TACROLIMUS LEVEL(Performed 09/25/2014) * COMPREHENSIVE METABOLIC PANEL(Performed 09/25/2014) * TACROLIMUS LEVEL(Performed 09/24/2014) * RBC MORPHOLOGY(Performed 09/24/2014) * CBC W AUTO DIFFERENTIAL(Performed 09/24/2014) * COMPREHENSIVE METABOLIC PANEL(Performed 09/24/2014) * PHOSPHORUS BLOOD(Performed 09/24/2014) * MAGNESIUM BLOOD(Performed 09/24/2014) * CBC W AUTO DIFFERENTIAL(Performed 09/24/2014) * CYTOMEGALOVIRUS DNA RT-PCR QUANT(Performed 09/24/2014) * DOUG-ARRIAZA VIRUS PCR QUANT BLOOD/CSF(Performed 09/24/2014) * GLUCOSE ACCUCHECK(Performed 09/23/2014) * GLUCOSE ACCUCHECK(Performed 09/23/2014) * TACROLIMUS LEVEL(Performed 09/23/2014) * CBC W AUTO DIFFERENTIAL(Performed 09/23/2014) * CBC W AUTO DIFFERENTIAL(Performed 09/23/2014) * COMPREHENSIVE METABOLIC PANEL(Performed 09/23/2014) * PHOSPHORUS BLOOD(Performed 09/23/2014) * MAGNESIUM BLOOD(Performed 09/23/2014) * GLUCOSE ACCUCHECK(Performed 09/22/2014) * GLUCOSE ACCUCHECK(Performed 09/22/2014) * GLUCOSE ACCUCHECK(Performed 09/22/2014) * TACROLIMUS LEVEL(Performed 09/22/2014) * GLUCOSE ACCUCHECK(Performed 09/22/2014) * GLUCOSE ACCUCHECK(Performed 09/22/2014) * RBC MORPHOLOGY(Performed 09/22/2014) * CBC W AUTO DIFFERENTIAL(Performed 09/22/2014) * COMPREHENSIVE METABOLIC PANEL(Performed 09/22/2014) * PHOSPHORUS BLOOD(Performed 09/22/2014) * MAGNESIUM BLOOD(Performed 09/22/2014) * CBC W AUTO DIFFERENTIAL(Performed 09/22/2014) * GLUCOSE ACCUCHECK(Performed 09/21/2014) * GLUCOSE ACCUCHECK(Performed 09/21/2014) * GLUCOSE ACCUCHECK(Performed 09/21/2014) * GLUCOSE ACCUCHECK(Performed 09/21/2014) * TACROLIMUS LEVEL(Performed 09/21/2014) * CBC W AUTO DIFFERENTIAL(Performed 09/21/2014) * DIFFERENTIAL MANUAL(Performed 09/21/2014) * CBC W AUTO DIFFERENTIAL(Performed 09/21/2014) * MAGNESIUM BLOOD(Performed 09/21/2014) * COMPREHENSIVE METABOLIC PANEL(Performed 09/21/2014) * PHOSPHORUS BLOOD(Performed 09/21/2014) * GLUCOSE ACCUCHECK(Performed 09/20/2014) * GLUCOSE ACCUCHECK(Performed 09/20/2014) * GLUCOSE ACCUCHECK(Performed 09/20/2014) * GLUCOSE ACCUCHECK(Performed 09/20/2014) * TACROLIMUS LEVEL(Performed 09/20/2014) * CBC W AUTO DIFFERENTIAL(Performed 09/20/2014) * RBC MORPHOLOGY(Performed 09/20/2014) * CBC W AUTO DIFFERENTIAL(Performed 09/20/2014) * PHOSPHORUS BLOOD(Performed 09/20/2014) * MAGNESIUM BLOOD(Performed 09/20/2014) * COMPREHENSIVE METABOLIC PANEL(Performed 09/20/2014) * GLUCOSE ACCUCHECK(Performed 09/19/2014) * GLUCOSE ACCUCHECK(Performed 09/19/2014) * HERPES VIRUS 6 DNA DANIA PCR(Performed 09/19/2014) * PARVOVIRUS B19 PCR(Performed 09/19/2014) * CD4 (ABSOLUTE T4)(Performed 09/19/2014) * IGG BLOOD(Performed 09/19/2014) * CHROMOSOME ANALYSIS PANEL(Performed 09/19/2014) * LAB MISC TEST(Performed 09/19/2014) * GLUCOSE ACCUCHECK(Performed 09/19/2014) * GLUCOSE ACCUCHECK(Performed 09/19/2014) * TACROLIMUS LEVEL(Performed 09/19/2014) * CBC W AUTO DIFFERENTIAL(Performed 09/19/2014) * DIFFERENTIAL MANUAL(Performed 09/19/2014) * CBC W AUTO DIFFERENTIAL(Performed 09/19/2014) * COMPREHENSIVE METABOLIC PANEL(Performed 09/19/2014) * PHOSPHORUS BLOOD(Performed 09/19/2014) * MAGNESIUM BLOOD(Performed 09/19/2014) * CYTOGENETICS CANCER PANEL(Performed 09/19/2014) Performed for AML (acute myeloblastic leukemia) [ICD-9-CM] * GLUCOSE ACCUCHECK(Performed 09/18/2014) * GLUCOSE ACCUCHECK(Performed 09/18/2014) * HEPARIN PLATELET INDUCED ANTIBODY(Performed 09/18/2014) * HAPTOGLOBIN(Performed 09/18/2014) * LDH BLOOD(Performed 09/18/2014) * PTT [facility](Performed 09/18/2014) * FIBRINOGEN ACTIVITY(Performed 09/18/2014) * D-DIMER(Performed 09/18/2014) * PT-INR [facility](Performed 09/18/2014) * GLUCOSE ACCUCHECK(Performed 09/18/2014) * TACROLIMUS LEVEL(Performed 09/18/2014) * CYTOMEGALOVIRUS DNA RT-PCR QUANT(Performed 09/18/2014) * GLUCOSE ACCUCHECK(Performed 09/18/2014) * CBC W AUTO DIFFERENTIAL(Performed 09/18/2014) * DIFFERENTIAL MANUAL(Performed 09/18/2014) * COMPREHENSIVE METABOLIC PANEL(Performed 09/18/2014) * PHOSPHORUS BLOOD(Performed 09/18/2014) * MAGNESIUM BLOOD(Performed 09/18/2014) * CBC W AUTO DIFFERENTIAL(Performed 09/18/2014) * DOUG-ARRIAZA VIRUS PCR QUANT BLOOD/CSF(Performed 09/18/2014) * GLUCOSE ACCUCHECK(Performed 09/17/2014) * GLUCOSE ACCUCHECK(Performed 09/17/2014) * GLUCOSE ACCUCHECK(Performed 09/17/2014) * TACROLIMUS LEVEL(Performed 09/17/2014) * GLUCOSE ACCUCHECK(Performed 09/17/2014) * DIFFERENTIAL MANUAL(Performed 09/17/2014) * CBC W AUTO DIFFERENTIAL(Performed 09/17/2014) * PHOSPHORUS BLOOD(Performed 09/17/2014) * MAGNESIUM BLOOD(Performed 09/17/2014) * COMPREHENSIVE METABOLIC PANEL(Performed 09/17/2014) * CBC W AUTO DIFFERENTIAL(Performed 09/17/2014) * GLUCOSE ACCUCHECK(Performed 09/16/2014) * GLUCOSE ACCUCHECK(Performed 09/16/2014) * GLUCOSE ACCUCHECK(Performed 09/16/2014) * TACROLIMUS LEVEL(Performed 09/16/2014) * GLUCOSE ACCUCHECK(Performed 09/16/2014) * CBC W AUTO DIFFERENTIAL(Performed 09/16/2014) * DIFFERENTIAL MANUAL(Performed 09/16/2014) * CBC W AUTO DIFFERENTIAL(Performed 09/16/2014) * PHOSPHORUS BLOOD(Performed 09/16/2014) * MAGNESIUM BLOOD(Performed 09/16/2014) * COMPREHENSIVE METABOLIC PANEL(Performed 09/16/2014) * GLUCOSE ACCUCHECK(Performed 09/15/2014) * GLUCOSE ACCUCHECK(Performed 09/15/2014) * GLUCOSE ACCUCHECK(Performed 09/15/2014) * GLUCOSE ACCUCHECK(Performed 09/15/2014) * TACROLIMUS LEVEL(Performed 09/15/2014) * CBC W AUTO DIFFERENTIAL(Performed 09/15/2014) * CBC W AUTO DIFFERENTIAL(Performed 09/15/2014) * COMPREHENSIVE METABOLIC PANEL(Performed 09/15/2014) * PHOSPHORUS BLOOD(Performed 09/15/2014) * MAGNESIUM BLOOD(Performed 09/15/2014) * POST TRANSPLANT ENGRAFTMENT ANALYSIS(Performed 09/15/2014) * GLUCOSE ACCUCHECK(Performed 09/14/2014) * GLUCOSE ACCUCHECK(Performed 09/14/2014) * GLUCOSE ACCUCHECK(Performed 09/14/2014) * GLUCOSE ACCUCHECK(Performed 09/14/2014) * GLUCOSE ACCUCHECK(Performed 09/14/2014) * CHROMOSOME ANALYSIS PANEL(Performed 09/14/2014) * CYTOGENETICS CANCER PANEL(Performed 09/14/2014) * HOLD SPECIMEN DNA TISSUE(Performed 09/14/2014) * POST TRANSPLANT ENGRAFTMENT ANALYSIS(Performed 09/14/2014) * FLOW CYTOMETRY PANEL(Performed 09/14/2014) * PATHOLOGY TISSUE(Performed 09/14/2014) * GLUCOSE ACCUCHECK(Performed 09/14/2014) * GLUCOSE ACCUCHECK(Performed 09/14/2014) * TACROLIMUS LEVEL(Performed 09/14/2014) * RBC MORPHOLOGY(Performed 09/14/2014) * CBC W AUTO DIFFERENTIAL(Performed 09/14/2014) * CBC W AUTO DIFFERENTIAL(Performed 09/14/2014) * COMPREHENSIVE METABOLIC PANEL(Performed 09/14/2014) * PHOSPHORUS BLOOD(Performed 09/14/2014) * MAGNESIUM BLOOD(Performed 09/14/2014) * CYTOGENETICS CANCER PANEL(Performed 09/14/2014) Performed for AML (acute myeloblastic leukemia) [ICD-9-CM] * LAB HISTORICAL RESULTS-ONBASE(Performed 09/14/2014) * GLUCOSE ACCUCHECK(Performed 09/13/2014) * GLUCOSE ACCUCHECK(Performed 09/13/2014) * GLUCOSE ACCUCHECK(Performed 09/13/2014) * GLUCOSE(Performed 09/13/2014) * GLUCOSE ACCUCHECK(Performed 09/13/2014) * GLUCOSE ACCUCHECK(Performed 09/13/2014) * TACROLIMUS LEVEL(Performed 09/13/2014) * COMPREHENSIVE METABOLIC PANEL(Performed 09/13/2014) * PHOSPHORUS BLOOD(Performed 09/13/2014) * MAGNESIUM BLOOD(Performed 09/13/2014) * CBC W AUTO DIFFERENTIAL(Performed 09/13/2014) * CBC W AUTO DIFFERENTIAL(Performed 09/13/2014) * GLUCOSE ACCUCHECK(Performed 09/12/2014) * GLUCOSE ACCUCHECK(Performed 09/12/2014) * PFT-LAB(Performed 09/12/2014) * GLUCOSE ACCUCHECK(Performed 09/12/2014) * TACROLIMUS LEVEL(Performed 09/12/2014) * GLUCOSE ACCUCHECK(Performed 09/12/2014) * CBC W AUTO DIFFERENTIAL(Performed 09/12/2014) * CBC W AUTO DIFFERENTIAL(Performed 09/12/2014) * PHOSPHORUS BLOOD(Performed 09/12/2014) * MAGNESIUM BLOOD(Performed 09/12/2014) * COMPREHENSIVE METABOLIC PANEL(Performed 09/12/2014) * GLUCOSE ACCUCHECK(Performed 09/11/2014) * GLUCOSE ACCUCHECK(Performed 09/11/2014) * GLUCOSE ACCUCHECK(Performed 09/11/2014) * GLUCOSE ACCUCHECK(Performed 09/11/2014) * TACROLIMUS LEVEL(Performed 09/11/2014) * RBC MORPHOLOGY(Performed 09/11/2014) * CBC W AUTO DIFFERENTIAL(Performed 09/11/2014) * COMPREHENSIVE METABOLIC PANEL(Performed 09/11/2014) * PHOSPHORUS BLOOD(Performed 09/11/2014) * MAGNESIUM BLOOD(Performed 09/11/2014) * CBC W AUTO DIFFERENTIAL(Performed 09/11/2014) * GLUCOSE ACCUCHECK(Performed 09/10/2014) * GLUCOSE ACCUCHECK(Performed 09/10/2014) * GLUCOSE ACCUCHECK(Performed 09/10/2014) * TACROLIMUS LEVEL(Performed 09/10/2014) * GLUCOSE ACCUCHECK(Performed 09/10/2014) * COMPREHENSIVE METABOLIC PANEL(Performed 09/10/2014) * PHOSPHORUS BLOOD(Performed 09/10/2014) * MAGNESIUM BLOOD(Performed 09/10/2014) * CBC W AUTO DIFFERENTIAL(Performed 09/10/2014) * CBC W AUTO DIFFERENTIAL(Performed 09/10/2014) * DOUG-ARRIAZA VIRUS PCR QUANT BLOOD/CSF(Performed 09/10/2014) * CYTOMEGALOVIRUS DNA RT-PCR QUANT(Performed 09/10/2014) * GLUCOSE ACCUCHECK(Performed 09/09/2014) * GLUCOSE ACCUCHECK(Performed 09/09/2014) * GLUCOSE ACCUCHECK(Performed 09/09/2014) * GLUCOSE ACCUCHECK(Performed 09/09/2014) * TACROLIMUS LEVEL(Performed 09/09/2014) * CBC W AUTO DIFFERENTIAL(Performed 09/09/2014) * RBC MORPHOLOGY(Performed 09/09/2014) * COMPREHENSIVE METABOLIC PANEL(Performed 09/09/2014) * PHOSPHORUS BLOOD(Performed 09/09/2014) * MAGNESIUM BLOOD(Performed 09/09/2014) * CBC W AUTO DIFFERENTIAL(Performed 09/09/2014) * GLUCOSE ACCUCHECK(Performed 09/08/2014) * GLUCOSE ACCUCHECK(Performed 09/08/2014) * GLUCOSE ACCUCHECK(Performed 09/08/2014) * GLUCOSE ACCUCHECK(Performed 09/08/2014) * COMPREHENSIVE METABOLIC PANEL(Performed 09/08/2014) * PHOSPHORUS BLOOD(Performed 09/08/2014) * MAGNESIUM BLOOD(Performed 09/08/2014) * CBC W AUTO DIFFERENTIAL(Performed 09/08/2014) * CBC W AUTO DIFFERENTIAL(Performed 09/08/2014) * GLUCOSE ACCUCHECK(Performed 09/07/2014) * GLUCOSE ACCUCHECK(Performed 09/07/2014) * PATHOLOGY TISSUE(Performed 09/07/2014) * GLUCOSE ACCUCHECK(Performed 09/07/2014) * GLUCOSE ACCUCHECK(Performed 09/07/2014) * TACROLIMUS LEVEL(Performed 09/07/2014) * FOLATE(Performed 09/07/2014) * VITAMIN B12(Performed 09/07/2014) * CBC W AUTO DIFFERENTIAL(Performed 09/07/2014) * CBC W AUTO DIFFERENTIAL(Performed 09/07/2014) * PHOSPHORUS BLOOD(Performed 09/07/2014) * MAGNESIUM BLOOD(Performed 09/07/2014) * COMPREHENSIVE METABOLIC PANEL(Performed 09/07/2014) * GLUCOSE ACCUCHECK(Performed 09/06/2014) * GLUCOSE ACCUCHECK(Performed 09/06/2014) * FECAL LEUKOCYTES(Performed 09/06/2014) * CULTURE STOOL+ E COLI SHIGA-LIKE TOXIN(Performed 09/06/2014) * C DIFFICILE GDH AG + TOXIN A+B(Performed 09/06/2014) * GLUCOSE ACCUCHECK(Performed 09/06/2014) * GLUCOSE ACCUCHECK(Performed 09/06/2014) * PHOSPHORUS BLOOD(Performed 09/06/2014) * MAGNESIUM BLOOD(Performed 09/06/2014) * COMPREHENSIVE METABOLIC PANEL(Performed 09/06/2014) * PT-INR SLH(Performed 09/06/2014) * CBC W AUTO DIFFERENTIAL(Performed 09/06/2014) * CBC W AUTO DIFFERENTIAL(Performed 09/06/2014) * GLUCOSE ACCUCHECK(Performed 09/05/2014) * GLUCOSE ACCUCHECK(Performed 09/05/2014) * GLUCOSE ACCUCHECK(Performed 09/05/2014) * GLUCOSE ACCUCHECK(Performed 09/05/2014) * TACROLIMUS LEVEL(Performed 09/05/2014) * PHOSPHORUS BLOOD(Performed 09/05/2014) * MAGNESIUM BLOOD(Performed 09/05/2014) * COMPREHENSIVE METABOLIC PANEL(Performed 09/05/2014) * CBC W AUTO DIFFERENTIAL(Performed 09/05/2014) * CBC W AUTO DIFFERENTIAL(Performed 09/05/2014) * DOUG-ARRIAZA VIRUS PCR QUANT BLOOD/CSF(Performed 09/05/2014) * CYTOMEGALOVIRUS DNA RT-PCR QUANT(Performed 09/05/2014) * GLUCOSE ACCUCHECK(Performed 09/04/2014) * GLUCOSE ACCUCHECK(Performed 09/04/2014) * GLUCOSE ACCUCHECK(Performed 09/04/2014) * GLUCOSE ACCUCHECK(Performed 09/04/2014) * DIFFERENTIAL MANUAL(Performed 09/04/2014) * CBC W AUTO DIFFERENTIAL(Performed 09/04/2014) * CBC W AUTO DIFFERENTIAL(Performed 09/04/2014) * PHOSPHORUS BLOOD(Performed 09/04/2014) * MAGNESIUM BLOOD(Performed 09/04/2014) * COMPREHENSIVE METABOLIC PANEL(Performed 09/04/2014) * GLUCOSE ACCUCHECK(Performed 09/03/2014) * GLUCOSE ACCUCHECK(Performed 09/03/2014) * GLUCOSE ACCUCHECK(Performed 09/03/2014) * GLUCOSE ACCUCHECK(Performed 09/03/2014) * TACROLIMUS LEVEL(Performed 09/03/2014) * PHOSPHORUS BLOOD(Performed 09/03/2014) * MAGNESIUM BLOOD(Performed 09/03/2014) * COMPREHENSIVE METABOLIC PANEL(Performed 09/03/2014) * CBC W AUTO DIFFERENTIAL(Performed 09/03/2014) * CBC W AUTO DIFFERENTIAL(Performed 09/03/2014) * NICOTINE METABOLITE URINE(Performed 09/02/2014) * CULTURE URINE(Performed 09/02/2014) * GLUCOSE ACCUCHECK(Performed 09/02/2014) * URINALYSIS W/MICROSCOPIC NO CULTURE(Performed 09/02/2014) * GLUCOSE ACCUCHECK(Performed 09/02/2014) * GLUCOSE ACCUCHECK(Performed 09/02/2014) * GLUCOSE ACCUCHECK(Performed 09/02/2014) * IGG BLOOD(Performed 09/02/2014) * COMPREHENSIVE METABOLIC PANEL(Performed 09/02/2014) * PHOSPHORUS BLOOD(Performed 09/02/2014) * MAGNESIUM BLOOD(Performed 09/02/2014) * CBC W AUTO DIFFERENTIAL(Performed 09/02/2014) * CBC W AUTO DIFFERENTIAL(Performed 09/02/2014) * GLUCOSE ACCUCHECK(Performed 09/01/2014) * GLUCOSE ACCUCHECK(Performed 09/01/2014) * NICOTINE METABOLITE URINE(Performed 09/01/2014) * GLUCOSE ACCUCHECK(Performed 09/01/2014) * GLUCOSE ACCUCHECK(Performed 09/01/2014) * CBC W AUTO DIFFERENTIAL(Performed 09/01/2014) * CBC W AUTO DIFFERENTIAL(Performed 09/01/2014) * PHOSPHORUS BLOOD(Performed 09/01/2014) * MAGNESIUM BLOOD(Performed 09/01/2014) * COMPREHENSIVE METABOLIC PANEL(Performed 09/01/2014) * GLUCOSE ACCUCHECK(Performed 08/31/2014) * GLUCOSE ACCUCHECK(Performed 08/31/2014) * GLUCOSE ACCUCHECK(Performed 08/31/2014) * GLUCOSE ACCUCHECK(Performed 08/31/2014) * DIFFERENTIAL MANUAL(Performed 08/31/2014) * CBC W AUTO DIFFERENTIAL(Performed 08/31/2014) * COMPREHENSIVE METABOLIC PANEL(Performed 08/31/2014) * MAGNESIUM BLOOD(Performed 08/31/2014) * PHOSPHORUS BLOOD(Performed 08/31/2014) * CBC W AUTO DIFFERENTIAL(Performed 08/31/2014) * GLUCOSE ACCUCHECK(Performed 08/30/2014) * GLUCOSE ACCUCHECK(Performed 08/30/2014) * GLUCOSE ACCUCHECK(Performed 08/30/2014) * GLUCOSE ACCUCHECK(Performed 08/30/2014) * GLUCOSE ACCUCHECK(Performed 08/30/2014) * TACROLIMUS LEVEL(Performed 08/30/2014) * CBC W AUTO DIFFERENTIAL(Performed 08/30/2014) * DIFFERENTIAL MANUAL(Performed 08/30/2014) * PHOSPHORUS BLOOD(Performed 08/30/2014) * MAGNESIUM BLOOD(Performed 08/30/2014) * COMPREHENSIVE METABOLIC PANEL(Performed 08/30/2014) * CBC W AUTO DIFFERENTIAL(Performed 08/30/2014) * GLUCOSE ACCUCHECK(Performed 08/29/2014) * CULTURE URINE(Performed 08/29/2014) * GLUCOSE ACCUCHECK(Performed 08/29/2014) * GLUCOSE ACCUCHECK(Performed 08/29/2014) * CULTURE BLOOD(Performed 08/29/2014) * CULTURE BLOOD(Performed 08/29/2014) * GLUCOSE ACCUCHECK(Performed 08/29/2014) * CBC W AUTO DIFFERENTIAL(Performed 08/29/2014) * DIFFERENTIAL MANUAL(Performed 08/29/2014) * CBC W AUTO DIFFERENTIAL(Performed 08/29/2014) * PHOSPHORUS BLOOD(Performed 08/29/2014) * MAGNESIUM BLOOD(Performed 08/29/2014) * COMPREHENSIVE METABOLIC PANEL(Performed 08/29/2014) * DOUG-ARRIAZA VIRUS PCR QUANT BLOOD/CSF(Performed 08/29/2014) * CYTOMEGALOVIRUS DNA RT-PCR QUANT(Performed 08/29/2014) * EKG 12-LEAD(Performed 08/29/2014) * GLUCOSE ACCUCHECK(Performed 08/28/2014) * GLUCOSE ACCUCHECK(Performed 08/28/2014) * GLUCOSE ACCUCHECK(Performed 08/28/2014) * GLUCOSE ACCUCHECK(Performed 08/28/2014) * TACROLIMUS LEVEL(Performed 08/28/2014) * PHOSPHORUS BLOOD(Performed 08/28/2014) * MAGNESIUM BLOOD(Performed 08/28/2014) * COMPREHENSIVE METABOLIC PANEL(Performed 08/28/2014) * CBC W AUTO DIFFERENTIAL(Performed 08/28/2014) * CBC W AUTO DIFFERENTIAL(Performed 08/28/2014) * GLUCOSE ACCUCHECK(Performed 08/27/2014) * GLUCOSE ACCUCHECK(Performed 08/27/2014) * GLUCOSE ACCUCHECK(Performed 08/27/2014) * GLUCOSE ACCUCHECK(Performed 08/27/2014) * TACROLIMUS LEVEL(Performed 08/27/2014) * PHOSPHORUS BLOOD(Performed 08/27/2014) * MAGNESIUM BLOOD(Performed 08/27/2014) * COMPREHENSIVE METABOLIC PANEL(Performed 08/27/2014) * CBC W AUTO DIFFERENTIAL(Performed 08/27/2014) * CBC W AUTO DIFFERENTIAL(Performed 08/27/2014) * GLUCOSE ACCUCHECK(Performed 08/26/2014) * GLUCOSE ACCUCHECK(Performed 08/26/2014) * GLUCOSE ACCUCHECK(Performed 08/26/2014) * GLUCOSE ACCUCHECK(Performed 08/26/2014) * TACROLIMUS LEVEL(Performed 08/26/2014) * PHOSPHORUS BLOOD(Performed 08/26/2014) * MAGNESIUM BLOOD(Performed 08/26/2014) * COMPREHENSIVE METABOLIC PANEL(Performed 08/26/2014) * CBC W AUTO DIFFERENTIAL(Performed 08/26/2014) * CBC W AUTO DIFFERENTIAL(Performed 08/26/2014) * GLUCOSE ACCUCHECK(Performed 08/25/2014) * HCG URINE QUALITATIVE(Performed 08/25/2014) * GLUCOSE ACCUCHECK(Performed 08/25/2014) * GLUCOSE ACCUCHECK(Performed 08/25/2014) * GLUCOSE ACCUCHECK(Performed 08/25/2014) * GLUCOSE ACCUCHECK(Performed 08/25/2014) * TACROLIMUS LEVEL(Performed 08/25/2014) * CBC W AUTO DIFFERENTIAL(Performed 08/25/2014) * CBC W AUTO DIFFERENTIAL(Performed 08/25/2014) * PHOSPHORUS BLOOD(Performed 08/25/2014) * MAGNESIUM BLOOD(Performed 08/25/2014) * COMPREHENSIVE METABOLIC PANEL(Performed 08/25/2014) * GLUCOSE ACCUCHECK(Performed 08/24/2014) * GLUCOSE ACCUCHECK(Performed 08/24/2014) * GLUCOSE ACCUCHECK(Performed 08/24/2014) * TACROLIMUS LEVEL(Performed 08/24/2014) * CBC W AUTO DIFFERENTIAL(Performed 08/24/2014) * DIFFERENTIAL MANUAL(Performed 08/24/2014) * CBC W AUTO DIFFERENTIAL(Performed 08/24/2014) * PHOSPHORUS BLOOD(Performed 08/24/2014) * MAGNESIUM BLOOD(Performed 08/24/2014) * COMPREHENSIVE METABOLIC PANEL(Performed 08/24/2014) * GLUCOSE ACCUCHECK(Performed 08/23/2014) * GLUCOSE ACCUCHECK(Performed 08/23/2014) * GLUCOSE ACCUCHECK(Performed 08/23/2014) * GLUCOSE ACCUCHECK(Performed 08/23/2014) * TACROLIMUS LEVEL(Performed 08/23/2014) * CBC W AUTO DIFFERENTIAL(Performed 08/23/2014) * CBC W AUTO DIFFERENTIAL(Performed 08/23/2014) * PHOSPHORUS BLOOD(Performed 08/23/2014) * MAGNESIUM BLOOD(Performed 08/23/2014) * COMPREHENSIVE METABOLIC PANEL(Performed 08/23/2014) * GLUCOSE ACCUCHECK(Performed 08/22/2014) * GLUCOSE ACCUCHECK(Performed 08/22/2014) * GLUCOSE ACCUCHECK(Performed 08/22/2014) * GLUCOSE ACCUCHECK(Performed 08/22/2014) * TACROLIMUS LEVEL(Performed 08/22/2014) * CBC W AUTO DIFFERENTIAL(Performed 08/22/2014) * CBC W AUTO DIFFERENTIAL(Performed 08/22/2014) * PHOSPHORUS BLOOD(Performed 08/22/2014) * MAGNESIUM BLOOD(Performed 08/22/2014) * COMPREHENSIVE METABOLIC PANEL(Performed 08/22/2014) * GLUCOSE ACCUCHECK(Performed 08/21/2014) * GLUCOSE ACCUCHECK(Performed 08/21/2014) * GLUCOSE ACCUCHECK(Performed 08/21/2014) * TACROLIMUS LEVEL(Performed 08/21/2014) * GLUCOSE ACCUCHECK(Performed 08/21/2014) * PHOSPHORUS BLOOD(Performed 08/21/2014) * MAGNESIUM BLOOD(Performed 08/21/2014) * COMPREHENSIVE METABOLIC PANEL(Performed 08/21/2014) * IGG BLOOD(Performed 08/21/2014) * CBC W AUTO DIFFERENTIAL(Performed 08/21/2014) * CBC W AUTO DIFFERENTIAL(Performed 08/21/2014) * CYTOMEGALOVIRUS DNA RT-PCR QUANT(Performed 08/21/2014) * GLUCOSE ACCUCHECK(Performed 08/20/2014) * GLUCOSE ACCUCHECK(Performed 08/20/2014) * TACROLIMUS LEVEL(Performed 08/20/2014) * DOUG-ARRIAZA VIRUS PCR QUANT BLOOD/CSF(Performed 08/20/2014) * GLUCOSE ACCUCHECK(Performed 08/20/2014) * PHOSPHORUS BLOOD(Performed 08/20/2014) * MAGNESIUM BLOOD(Performed 08/20/2014) * COMPREHENSIVE METABOLIC PANEL(Performed 08/20/2014) * CBC W AUTO DIFFERENTIAL(Performed 08/20/2014) * CBC W AUTO DIFFERENTIAL(Performed 08/20/2014) * GLUCOSE ACCUCHECK(Performed 08/19/2014) * GLUCOSE ACCUCHECK(Performed 08/19/2014) * GLUCOSE ACCUCHECK(Performed 08/19/2014) * GLUCOSE ACCUCHECK(Performed 08/19/2014) * TACROLIMUS LEVEL(Performed 08/19/2014) * PHOSPHORUS BLOOD(Performed 08/19/2014) * MAGNESIUM BLOOD(Performed 08/19/2014) * COMPREHENSIVE METABOLIC PANEL(Performed 08/19/2014) * CBC W AUTO DIFFERENTIAL(Performed 08/19/2014) * CBC W AUTO DIFFERENTIAL(Performed 08/19/2014) * GLUCOSE ACCUCHECK(Performed 08/18/2014) * GLUCOSE ACCUCHECK(Performed 08/18/2014) * GLUCOSE ACCUCHECK(Performed 08/18/2014) * TACROLIMUS LEVEL(Performed 08/18/2014) * GLUCOSE ACCUCHECK(Performed 08/18/2014) * GLUCOSE ACCUCHECK(Performed 08/18/2014) * PHOSPHORUS BLOOD(Performed 08/18/2014) * MAGNESIUM BLOOD(Performed 08/18/2014) * COMPREHENSIVE METABOLIC PANEL(Performed 08/18/2014) * CBC W AUTO DIFFERENTIAL(Performed 08/18/2014) * CBC W AUTO DIFFERENTIAL(Performed 08/18/2014) * GLUCOSE ACCUCHECK(Performed 08/17/2014) * GLUCOSE ACCUCHECK(Performed 08/17/2014) * GLUCOSE ACCUCHECK(Performed 08/17/2014) * TACROLIMUS LEVEL(Performed 08/17/2014) * GLUCOSE ACCUCHECK(Performed 08/17/2014) * RBC MORPHOLOGY(Performed 08/17/2014) * CBC W AUTO DIFFERENTIAL(Performed 08/17/2014) * CBC W AUTO DIFFERENTIAL(Performed 08/17/2014) * PHOSPHORUS BLOOD(Performed 08/17/2014) * MAGNESIUM BLOOD(Performed 08/17/2014) * COMPREHENSIVE METABOLIC PANEL(Performed 08/17/2014) * GLUCOSE ACCUCHECK(Performed 08/17/2014) * GLUCOSE ACCUCHECK(Performed 08/16/2014) * GLUCOSE ACCUCHECK(Performed 08/16/2014) * GLUCOSE ACCUCHECK(Performed 08/16/2014) * GLUCOSE ACCUCHECK(Performed 08/16/2014) * TACROLIMUS LEVEL(Performed 08/16/2014) * PHOSPHORUS BLOOD(Performed 08/16/2014) * MAGNESIUM BLOOD(Performed 08/16/2014) * COMPREHENSIVE METABOLIC PANEL(Performed 08/16/2014) * CBC W AUTO DIFFERENTIAL(Performed 08/16/2014) * CBC W AUTO DIFFERENTIAL(Performed 08/16/2014) * GLUCOSE ACCUCHECK(Performed 08/15/2014) * GLUCOSE ACCUCHECK(Performed 08/15/2014) * GLUCOSE ACCUCHECK(Performed 08/15/2014) * GLUCOSE ACCUCHECK(Performed 08/15/2014) * TACROLIMUS LEVEL(Performed 08/15/2014) * PHOSPHORUS BLOOD(Performed 08/15/2014) * MAGNESIUM BLOOD(Performed 08/15/2014) * COMPREHENSIVE METABOLIC PANEL(Performed 08/15/2014) * CBC W AUTO DIFFERENTIAL(Performed 08/15/2014) * CBC W AUTO DIFFERENTIAL(Performed 08/15/2014) * GLUCOSE ACCUCHECK(Performed 08/14/2014) * CULTURE URINE(Performed 08/14/2014) * GLUCOSE ACCUCHECK(Performed 08/14/2014) * GLUCOSE ACCUCHECK(Performed 08/14/2014) * URINALYSIS REFLEX TO MICROSCOPIC NO CULTURE(Performed 08/14/2014) * GLUCOSE ACCUCHECK(Performed 08/14/2014) * TACROLIMUS LEVEL(Performed 08/14/2014) * IGG BLOOD(Performed 08/14/2014) * PHOSPHORUS BLOOD(Performed 08/14/2014) * MAGNESIUM BLOOD(Performed 08/14/2014) * COMPREHENSIVE METABOLIC PANEL(Performed 08/14/2014) * CBC W AUTO DIFFERENTIAL(Performed 08/14/2014) * CBC W AUTO DIFFERENTIAL(Performed 08/14/2014) * DOUG-ARRIAZA VIRUS PCR QUANT BLOOD/CSF(Performed 08/14/2014) * CYTOMEGALOVIRUS DNA RT-PCR QUANT(Performed 08/14/2014) * GLUCOSE ACCUCHECK(Performed 08/13/2014) * GLUCOSE ACCUCHECK(Performed 08/13/2014) * GLUCOSE ACCUCHECK(Performed 08/13/2014) * GLUCOSE ACCUCHECK(Performed 08/13/2014) * TACROLIMUS LEVEL(Performed 08/13/2014) * CBC W AUTO DIFFERENTIAL(Performed 08/13/2014) * CBC W AUTO DIFFERENTIAL(Performed 08/13/2014) * PHOSPHORUS BLOOD(Performed 08/13/2014) * MAGNESIUM BLOOD(Performed 08/13/2014) * COMPREHENSIVE METABOLIC PANEL(Performed 08/13/2014) * GLUCOSE ACCUCHECK(Performed 08/12/2014) * GLUCOSE ACCUCHECK(Performed 08/12/2014) * GLUCOSE ACCUCHECK(Performed 08/12/2014) * GLUCOSE ACCUCHECK(Performed 08/12/2014) * TACROLIMUS LEVEL(Performed 08/12/2014) * COMPREHENSIVE METABOLIC PANEL(Performed 08/12/2014) * PHOSPHORUS BLOOD(Performed 08/12/2014) * MAGNESIUM BLOOD(Performed 08/12/2014) * CBC W AUTO DIFFERENTIAL(Performed 08/12/2014) * CBC W AUTO DIFFERENTIAL(Performed 08/12/2014) * GLUCOSE ACCUCHECK(Performed 08/11/2014) * GLUCOSE ACCUCHECK(Performed 08/11/2014) * GLUCOSE ACCUCHECK(Performed 08/11/2014) * TACROLIMUS LEVEL(Performed 08/11/2014) * GLUCOSE ACCUCHECK(Performed 08/11/2014) * CBC W AUTO DIFFERENTIAL(Performed 08/11/2014) * CBC W AUTO DIFFERENTIAL(Performed 08/11/2014) * PHOSPHORUS BLOOD(Performed 08/11/2014) * MAGNESIUM BLOOD(Performed 08/11/2014) * COMPREHENSIVE METABOLIC PANEL(Performed 08/11/2014) * GLUCOSE ACCUCHECK(Performed 08/10/2014) * GLUCOSE ACCUCHECK(Performed 08/10/2014) * PATHOLOGY TISSUE(Performed 08/10/2014) * GLUCOSE ACCUCHECK(Performed 08/10/2014) * TACROLIMUS LEVEL(Performed 08/10/2014) * GLUCOSE ACCUCHECK(Performed 08/10/2014) * DIFFERENTIAL MANUAL(Performed 08/10/2014) * CBC W AUTO DIFFERENTIAL(Performed 08/10/2014) * PHOSPHORUS BLOOD(Performed 08/10/2014) * MAGNESIUM BLOOD(Performed 08/10/2014) * COMPREHENSIVE METABOLIC PANEL(Performed 08/10/2014) * CBC W AUTO DIFFERENTIAL(Performed 08/10/2014) * GLUCOSE ACCUCHECK(Performed 08/09/2014) * MRI HIP RIGHT WWO CONTRAST(Performed 08/09/2014) * GLUCOSE ACCUCHECK(Performed 08/09/2014) * GLUCOSE ACCUCHECK(Performed 08/09/2014) * TACROLIMUS LEVEL(Performed 08/09/2014) * GLUCOSE ACCUCHECK(Performed 08/09/2014) * PHOSPHORUS BLOOD(Performed 08/09/2014) * MAGNESIUM BLOOD(Performed 08/09/2014) * COMPREHENSIVE METABOLIC PANEL(Performed 08/09/2014) * CBC W AUTO DIFFERENTIAL(Performed 08/09/2014) * CBC W AUTO DIFFERENTIAL(Performed 08/09/2014) * GLUCOSE ACCUCHECK(Performed 08/08/2014) * GLUCOSE ACCUCHECK(Performed 08/08/2014) * MRI BRAIN WWO CONTRAST(Performed 08/08/2014) * GLUCOSE ACCUCHECK(Performed 08/08/2014) * TACROLIMUS LEVEL(Performed 08/08/2014) * GLUCOSE ACCUCHECK(Performed 08/08/2014) * CBC W AUTO DIFFERENTIAL(Performed 08/08/2014) * PHOSPHORUS BLOOD(Performed 08/08/2014) * MAGNESIUM BLOOD(Performed 08/08/2014) * COMPREHENSIVE METABOLIC PANEL(Performed 08/08/2014) * CBC W AUTO DIFFERENTIAL(Performed 08/08/2014) * GLUCOSE ACCUCHECK(Performed 08/07/2014) * GLUCOSE ACCUCHECK(Performed 08/07/2014) * GLUCOSE ACCUCHECK(Performed 08/07/2014) * TACROLIMUS LEVEL(Performed 08/07/2014) * GLUCOSE ACCUCHECK(Performed 08/07/2014) * CBC W AUTO DIFFERENTIAL(Performed 08/07/2014) * DIFFERENTIAL MANUAL(Performed 08/07/2014) * MAGNESIUM BLOOD(Performed 08/07/2014) * CBC W AUTO DIFFERENTIAL(Performed 08/07/2014) * COMPREHENSIVE METABOLIC PANEL(Performed 08/07/2014) * PHOSPHORUS BLOOD(Performed 08/07/2014) * CYTOMEGALOVIRUS DNA RT-PCR QUANT(Performed 08/07/2014) * GLUCOSE ACCUCHECK(Performed 08/06/2014) * GLUCOSE ACCUCHECK(Performed 08/06/2014) * XR PELVIS W RIGHT HIP 2VW(Performed 08/06/2014) * GLUCOSE ACCUCHECK(Performed 08/06/2014) * GLUCOSE ACCUCHECK(Performed 08/06/2014) * TACROLIMUS LEVEL(Performed 08/06/2014) * CBC W AUTO DIFFERENTIAL(Performed 08/06/2014) * CBC W AUTO DIFFERENTIAL(Performed 08/06/2014) * PHOSPHORUS BLOOD(Performed 08/06/2014) * MAGNESIUM BLOOD(Performed 08/06/2014) * COMPREHENSIVE METABOLIC PANEL(Performed 08/06/2014) * GLUCOSE ACCUCHECK(Performed 08/05/2014) * GLUCOSE ACCUCHECK(Performed 08/05/2014) * BASIC METABOLIC PANEL (CALCIUM TOTAL)(Performed 08/05/2014) * GLUCOSE ACCUCHECK(Performed 08/05/2014) * GLUCOSE ACCUCHECK(Performed 08/05/2014) * TACROLIMUS LEVEL(Performed 08/05/2014) * HEMOGLOBIN A1C(Performed 08/05/2014) * CBC W AUTO DIFFERENTIAL(Performed 08/05/2014) * CBC W AUTO DIFFERENTIAL(Performed 08/05/2014) * PHOSPHORUS BLOOD(Performed 08/05/2014) * MAGNESIUM BLOOD(Performed 08/05/2014) * COMPREHENSIVE METABOLIC PANEL(Performed 08/05/2014) * GLUCOSE ACCUCHECK(Performed 08/04/2014) * GLUCOSE ACCUCHECK(Performed 08/04/2014) * GLUCOSE ACCUCHECK(Performed 08/04/2014) * POST TRANSPLANT ENGRAFTMENT ANALYSIS(Performed 08/04/2014) * GLUCOSE ACCUCHECK(Performed 08/04/2014) * TACROLIMUS LEVEL(Performed 08/04/2014) * GLUCOSE ACCUCHECK(Performed 08/04/2014) * PHOSPHORUS BLOOD(Performed 08/04/2014) * MAGNESIUM BLOOD(Performed 08/04/2014) * COMPREHENSIVE METABOLIC PANEL(Performed 08/04/2014) * CBC W AUTO DIFFERENTIAL(Performed 08/04/2014) * CBC W AUTO DIFFERENTIAL(Performed 08/04/2014) * DOUG-ARRIAZA VIRUS PCR QUANT BLOOD/CSF(Performed 08/04/2014) * GLUCOSE ACCUCHECK(Performed 08/03/2014) * GLUCOSE ACCUCHECK(Performed 08/03/2014) * GLUCOSE ACCUCHECK(Performed 08/03/2014) * GLUCOSE ACCUCHECK(Performed 08/03/2014) * TACROLIMUS LEVEL(Performed 08/03/2014) * GLUCOSE ACCUCHECK(Performed 08/03/2014) * CBC W AUTO DIFFERENTIAL(Performed 08/03/2014) * CBC W AUTO DIFFERENTIAL(Performed 08/03/2014) * PHOSPHORUS BLOOD(Performed 08/03/2014) * MAGNESIUM BLOOD(Performed 08/03/2014) * COMPREHENSIVE METABOLIC PANEL(Performed 08/03/2014) * GLUCOSE ACCUCHECK(Performed 08/02/2014) * GLUCOSE ACCUCHECK(Performed 08/02/2014) * GLUCOSE ACCUCHECK(Performed 08/02/2014) * TACROLIMUS LEVEL(Performed 08/02/2014) * GLUCOSE ACCUCHECK(Performed 08/02/2014) * RBC MORPHOLOGY(Performed 08/02/2014) * CBC W AUTO DIFFERENTIAL(Performed 08/02/2014) * CBC W AUTO DIFFERENTIAL(Performed 08/02/2014) * PHOSPHORUS BLOOD(Performed 08/02/2014) * MAGNESIUM BLOOD(Performed 08/02/2014) * COMPREHENSIVE METABOLIC PANEL(Performed 08/02/2014) * GLUCOSE ACCUCHECK(Performed 08/02/2014) * GLUCOSE ACCUCHECK(Performed 08/01/2014) * GLUCOSE ACCUCHECK(Performed 08/01/2014) * HOLD SPECIMEN DNA TISSUE(Performed 08/01/2014) * CHROMOSOME ANALYSIS PANEL(Performed 08/01/2014) * CYTOGENETICS CANCER PANEL(Performed 08/01/2014) * LAB MISC TEST(Performed 08/01/2014) * FLOW CYTOMETRY PANEL(Performed 08/01/2014) * POST TRANSPLANT ENGRAFTMENT ANALYSIS(Performed 08/01/2014) * PATHOLOGY TISSUE(Performed 08/01/2014) * HAPTOGLOBIN(Performed 08/01/2014) * LDH BLOOD(Performed 08/01/2014) * GLUCOSE ACCUCHECK(Performed 08/01/2014) * TACROLIMUS LEVEL(Performed 08/01/2014) * GLUCOSE ACCUCHECK(Performed 08/01/2014) * GLUCOSE ACCUCHECK(Performed 08/01/2014) * RETIC COUNT(Performed 08/01/2014) * RBC MORPHOLOGY(Performed 08/01/2014) * CBC W AUTO DIFFERENTIAL(Performed 08/01/2014) * CBC W AUTO DIFFERENTIAL(Performed 08/01/2014) * PHOSPHORUS BLOOD(Performed 08/01/2014) * MAGNESIUM BLOOD(Performed 08/01/2014) * COMPREHENSIVE METABOLIC PANEL(Performed 08/01/2014) * CYTOGENETICS CANCER PANEL(Performed 08/01/2014) Performed for AML (acute myeloblastic leukemia) [ICD-9-CM] * GLUCOSE ACCUCHECK(Performed 07/31/2014) * GLUCOSE ACCUCHECK(Performed 07/31/2014) * CYTOMEGALOVIRUS DNA RT-PCR QUANT(Performed 07/31/2014) * GLUCOSE ACCUCHECK(Performed 07/31/2014) * GLUCOSE ACCUCHECK(Performed 07/31/2014) * TACROLIMUS LEVEL(Performed 07/31/2014) * TSH(Performed 07/31/2014) * MAGNESIUM BLOOD(Performed 07/31/2014) * PHOSPHORUS BLOOD(Performed 07/31/2014) * COMPREHENSIVE METABOLIC PANEL(Performed 07/31/2014) * CBC W AUTO DIFFERENTIAL(Performed 07/31/2014) * CBC W AUTO DIFFERENTIAL(Performed 07/31/2014) * GLUCOSE ACCUCHECK(Performed 07/30/2014) * CT ABDOMEN PELVIS W CONTRAST(Performed 07/30/2014) * CULTURE BLOOD(Performed 07/30/2014) * CULTURE BLOOD(Performed 07/30/2014) * GLUCOSE ACCUCHECK(Performed 07/30/2014) * GLUCOSE ACCUCHECK(Performed 07/30/2014) * GLUCOSE ACCUCHECK(Performed 07/30/2014) * PHOSPHORUS BLOOD(Performed 07/30/2014) * MAGNESIUM BLOOD(Performed 07/30/2014) * COMPREHENSIVE METABOLIC PANEL(Performed 07/30/2014) * CBC W AUTO DIFFERENTIAL(Performed 07/30/2014) * CBC W AUTO DIFFERENTIAL(Performed 07/30/2014) * GLUCOSE ACCUCHECK(Performed 07/29/2014) * GLUCOSE ACCUCHECK(Performed 07/29/2014) * GLUCOSE ACCUCHECK(Performed 07/29/2014) * GLUCOSE ACCUCHECK(Performed 07/29/2014) * TACROLIMUS LEVEL(Performed 07/29/2014) * PHOSPHORUS BLOOD(Performed 07/29/2014) * MAGNESIUM BLOOD(Performed 07/29/2014) * COMPREHENSIVE METABOLIC PANEL(Performed 07/29/2014) * CBC W AUTO DIFFERENTIAL(Performed 07/29/2014) * CBC W AUTO DIFFERENTIAL(Performed 07/29/2014) * GLUCOSE ACCUCHECK(Performed 07/28/2014) * US ABDOMEN LIMITED(Performed 07/28/2014) * GLUCOSE ACCUCHECK(Performed 07/28/2014) * GLUCOSE ACCUCHECK(Performed 07/28/2014) * TACROLIMUS LEVEL(Performed 07/28/2014) * COMPREHENSIVE METABOLIC PANEL(Performed 07/28/2014) * PHOSPHORUS BLOOD(Performed 07/28/2014) * MAGNESIUM BLOOD(Performed 07/28/2014) * CBC W AUTO DIFFERENTIAL(Performed 07/28/2014) * CBC W AUTO DIFFERENTIAL(Performed 07/28/2014) * CYTOMEGALOVIRUS DNA RT-PCR QUANT(Performed 07/28/2014) * GLUCOSE ACCUCHECK(Performed 07/27/2014) * GLUCOSE ACCUCHECK(Performed 07/27/2014) * GLUCOSE ACCUCHECK(Performed 07/27/2014) * GLUCOSE ACCUCHECK(Performed 07/27/2014) * TACROLIMUS LEVEL(Performed 07/27/2014) * PHOSPHORUS BLOOD(Performed 07/27/2014) * MAGNESIUM BLOOD(Performed 07/27/2014) * COMPREHENSIVE METABOLIC PANEL(Performed 07/27/2014) * CBC W AUTO DIFFERENTIAL(Performed 07/27/2014) * CBC W AUTO DIFFERENTIAL(Performed 07/27/2014) * GLUCOSE ACCUCHECK(Performed 07/26/2014) * GLUCOSE ACCUCHECK(Performed 07/26/2014) * GLUCOSE ACCUCHECK(Performed 07/26/2014) * GLUCOSE ACCUCHECK(Performed 07/26/2014) * TACROLIMUS LEVEL(Performed 07/26/2014) * DIFFERENTIAL MANUAL(Performed 07/26/2014) * CBC W AUTO DIFFERENTIAL(Performed 07/26/2014) * CBC W AUTO DIFFERENTIAL(Performed 07/26/2014) * PHOSPHORUS BLOOD(Performed 07/26/2014) * MAGNESIUM BLOOD(Performed 07/26/2014) * COMPREHENSIVE METABOLIC PANEL(Performed 07/26/2014) * GLUCOSE ACCUCHECK(Performed 07/25/2014) * GLUCOSE ACCUCHECK(Performed 07/25/2014) * GLUCOSE ACCUCHECK(Performed 07/25/2014) * GLUCOSE ACCUCHECK(Performed 07/25/2014) * TACROLIMUS LEVEL(Performed 07/25/2014) * PHOSPHORUS BLOOD(Performed 07/25/2014) * MAGNESIUM BLOOD(Performed 07/25/2014) * COMPREHENSIVE METABOLIC PANEL(Performed 07/25/2014) * CBC W AUTO DIFFERENTIAL(Performed 07/25/2014) * CBC W AUTO DIFFERENTIAL(Performed 07/25/2014) * GLUCOSE ACCUCHECK(Performed 2014) * GLUCOSE ACCUCHECK(Performed 2014) * GLUCOSE ACCUCHECK(Performed 2014) * GLUCOSE ACCUCHECK(Performed 2014) * TACROLIMUS LEVEL(Performed 2014) * GLUCOSE ACCUCHECK(Performed 2014) * CBC W AUTO DIFFERENTIAL(Performed 2014) * DIFFERENTIAL MANUAL(Performed 2014) * PHOSPHORUS BLOOD(Performed 2014) * MAGNESIUM BLOOD(Performed 2014) * COMPREHENSIVE METABOLIC PANEL(Performed 2014) * CBC W AUTO DIFFERENTIAL(Performed 2014) * GLUCOSE ACCUCHECK(Performed 2014) * DOUG-ARRIAZA VIRUS PCR QUANT BLOOD/CSF(Performed 2014) * GLUCOSE ACCUCHECK(Performed 07/23/2014) * GLUCOSE ACCUCHECK(Performed 07/23/2014) * GLUCOSE ACCUCHECK(Performed 07/23/2014) * TACROLIMUS LEVEL(Performed 07/23/2014) * GLUCOSE ACCUCHECK(Performed 07/23/2014) * CBC W AUTO DIFFERENTIAL(Performed 07/23/2014) * DIFFERENTIAL MANUAL(Performed 07/23/2014) * CBC W AUTO DIFFERENTIAL(Performed 07/23/2014) * PHOSPHORUS BLOOD(Performed 07/23/2014) * MAGNESIUM BLOOD(Performed 07/23/2014) * COMPREHENSIVE METABOLIC PANEL(Performed 07/23/2014) * GLUCOSE ACCUCHECK(Performed 07/23/2014) * GLUCOSE ACCUCHECK(Performed 07/22/2014) * GLUCOSE ACCUCHECK(Performed 07/22/2014) * GLUCOSE ACCUCHECK(Performed 07/22/2014) * GLUCOSE ACCUCHECK(Performed 07/22/2014) * TACROLIMUS LEVEL(Performed 07/22/2014) * CBC W AUTO DIFFERENTIAL(Performed 07/22/2014) * DIFFERENTIAL MANUAL(Performed 07/22/2014) * PHOSPHORUS BLOOD(Performed 07/22/2014) * MAGNESIUM BLOOD(Performed 07/22/2014) * COMPREHENSIVE METABOLIC PANEL(Performed 07/22/2014) * CBC W AUTO DIFFERENTIAL(Performed 07/22/2014) * GLUCOSE ACCUCHECK(Performed 07/21/2014) * GLUCOSE ACCUCHECK(Performed 07/21/2014) * GLUCOSE ACCUCHECK(Performed 07/21/2014) * GLUCOSE ACCUCHECK(Performed 07/21/2014) * TACROLIMUS LEVEL(Performed 07/21/2014) * PHOSPHORUS BLOOD(Performed 07/21/2014) * MAGNESIUM BLOOD(Performed 07/21/2014) * COMPREHENSIVE METABOLIC PANEL(Performed 07/21/2014) * CBC W AUTO DIFFERENTIAL(Performed 07/21/2014) * CBC W AUTO DIFFERENTIAL(Performed 07/21/2014) * CYTOMEGALOVIRUS DNA RT-PCR QUANT(Performed 07/21/2014) * GLUCOSE ACCUCHECK(Performed 07/20/2014) * GLUCOSE ACCUCHECK(Performed 07/20/2014) * GLUCOSE ACCUCHECK(Performed 07/20/2014) * GLUCOSE ACCUCHECK(Performed 07/20/2014) * TACROLIMUS LEVEL(Performed 07/20/2014) * GLUCOSE ACCUCHECK(Performed 07/20/2014) * DIFFERENTIAL MANUAL(Performed 07/20/2014) * CBC W AUTO DIFFERENTIAL(Performed 07/20/2014) * CBC W AUTO DIFFERENTIAL(Performed 07/20/2014) * PHOSPHORUS BLOOD(Performed 07/20/2014) * MAGNESIUM BLOOD(Performed 07/20/2014) * COMPREHENSIVE METABOLIC PANEL(Performed 07/20/2014) * GLUCOSE ACCUCHECK(Performed 07/19/2014) * GLUCOSE ACCUCHECK(Performed 07/19/2014) * GLUCOSE ACCUCHECK(Performed 07/19/2014) * GLUCOSE ACCUCHECK(Performed 07/19/2014) * TACROLIMUS LEVEL(Performed 07/19/2014) * CBC W AUTO DIFFERENTIAL(Performed 07/19/2014) * DIFFERENTIAL MANUAL(Performed 07/19/2014) * PHOSPHORUS BLOOD(Performed 07/19/2014) * MAGNESIUM BLOOD(Performed 07/19/2014) * COMPREHENSIVE METABOLIC PANEL(Performed 07/19/2014) * CBC W AUTO DIFFERENTIAL(Performed 07/19/2014) * GLUCOSE ACCUCHECK(Performed 07/19/2014) * GLUCOSE ACCUCHECK(Performed 07/18/2014) * GLUCOSE ACCUCHECK(Performed 07/18/2014) * GLUCOSE ACCUCHECK(Performed 07/18/2014) * TACROLIMUS LEVEL(Performed 07/18/2014) * GLUCOSE ACCUCHECK(Performed 07/18/2014) * GLUCOSE ACCUCHECK(Performed 07/18/2014) * CBC W AUTO DIFFERENTIAL(Performed 07/18/2014) * DIFFERENTIAL MANUAL(Performed 07/18/2014) * CBC W AUTO DIFFERENTIAL(Performed 07/18/2014) * PHOSPHORUS BLOOD(Performed 07/18/2014) * MAGNESIUM BLOOD(Performed 07/18/2014) * COMPREHENSIVE METABOLIC PANEL(Performed 07/18/2014) * DOUG-ARRIAZA VIRUS PCR QUANT BLOOD/CSF(Performed 07/18/2014) * GLUCOSE ACCUCHECK(Performed 07/17/2014) * GLUCOSE ACCUCHECK(Performed 07/17/2014) * GLUCOSE ACCUCHECK(Performed 07/17/2014) * GLUCOSE ACCUCHECK(Performed 07/17/2014) * TACROLIMUS LEVEL(Performed 07/17/2014) * GLUCOSE ACCUCHECK(Performed 07/17/2014) * GLUCOSE ACCUCHECK(Performed 07/17/2014) * CBC W AUTO DIFFERENTIAL(Performed 07/17/2014) * DIFFERENTIAL MANUAL(Performed 07/17/2014) * CBC W AUTO DIFFERENTIAL(Performed 07/17/2014) * PHOSPHORUS BLOOD(Performed 07/17/2014) * MAGNESIUM BLOOD(Performed 07/17/2014) * COMPREHENSIVE METABOLIC PANEL(Performed 07/17/2014) * GLUCOSE ACCUCHECK(Performed 07/17/2014) * GLUCOSE ACCUCHECK(Performed 07/16/2014) * GLUCOSE ACCUCHECK(Performed 07/16/2014) * GLUCOSE ACCUCHECK(Performed 07/16/2014) * GLUCOSE ACCUCHECK(Performed 07/16/2014) * TACROLIMUS LEVEL(Performed 07/16/2014) * C DIFFICILE GDH AG + TOXIN A+B(Performed 07/16/2014) * GLUCOSE ACCUCHECK(Performed 07/16/2014) * CBC W AUTO DIFFERENTIAL(Performed 07/16/2014) * DIFFERENTIAL MANUAL(Performed 07/16/2014) * CBC W AUTO DIFFERENTIAL(Performed 07/16/2014) * COMPREHENSIVE METABOLIC PANEL(Performed 07/16/2014) * PHOSPHORUS BLOOD(Performed 07/16/2014) * MAGNESIUM BLOOD(Performed 07/16/2014) * GLUCOSE ACCUCHECK(Performed 07/15/2014) * GLUCOSE ACCUCHECK(Performed 07/15/2014) * GLUCOSE ACCUCHECK(Performed 07/15/2014) * GLUCOSE ACCUCHECK(Performed 07/15/2014) * TACROLIMUS LEVEL(Performed 07/15/2014) * GLUCOSE ACCUCHECK(Performed 07/15/2014) * GLUCOSE ACCUCHECK(Performed 07/15/2014) * CBC W AUTO DIFFERENTIAL(Performed 07/15/2014) * DIFFERENTIAL MANUAL(Performed 07/15/2014) * COMPREHENSIVE METABOLIC PANEL(Performed 07/15/2014) * PHOSPHORUS BLOOD(Performed 07/15/2014) * MAGNESIUM BLOOD(Performed 07/15/2014) * CBC W AUTO DIFFERENTIAL(Performed 07/15/2014) * GLUCOSE ACCUCHECK(Performed 07/14/2014) * GLUCOSE ACCUCHECK(Performed 07/14/2014) * GLUCOSE ACCUCHECK(Performed 07/14/2014) * GLUCOSE ACCUCHECK(Performed 07/14/2014) * TACROLIMUS LEVEL(Performed 07/14/2014) * GLUCOSE ACCUCHECK(Performed 07/14/2014) * COMPREHENSIVE METABOLIC PANEL(Performed 07/14/2014) * PHOSPHORUS BLOOD(Performed 07/14/2014) * MAGNESIUM BLOOD(Performed 07/14/2014) * CBC W AUTO DIFFERENTIAL(Performed 07/14/2014) * CBC W AUTO DIFFERENTIAL(Performed 07/14/2014) * CYTOMEGALOVIRUS DNA RT-PCR QUANT(Performed 07/14/2014) * GLUCOSE ACCUCHECK(Performed 07/13/2014) * GLUCOSE ACCUCHECK(Performed 07/13/2014) * GLUCOSE ACCUCHECK(Performed 07/13/2014) * GLUCOSE ACCUCHECK(Performed 07/13/2014) * TACROLIMUS LEVEL(Performed 07/13/2014) * COMPREHENSIVE METABOLIC PANEL(Performed 07/13/2014) * PHOSPHORUS BLOOD(Performed 07/13/2014) * MAGNESIUM BLOOD(Performed 07/13/2014) * CBC W AUTO DIFFERENTIAL(Performed 07/13/2014) * CBC W AUTO DIFFERENTIAL(Performed 07/13/2014) * GLUCOSE ACCUCHECK(Performed 07/12/2014) * GLUCOSE ACCUCHECK(Performed 07/12/2014) * GLUCOSE ACCUCHECK(Performed 07/12/2014) * GLUCOSE ACCUCHECK(Performed 07/12/2014) * TACROLIMUS LEVEL(Performed 07/12/2014) * CBC W AUTO DIFFERENTIAL(Performed 07/12/2014) * DIFFERENTIAL MANUAL(Performed 07/12/2014) * COMPREHENSIVE METABOLIC PANEL(Performed 07/12/2014) * PHOSPHORUS BLOOD(Performed 07/12/2014) * MAGNESIUM BLOOD(Performed 07/12/2014) * CBC W AUTO DIFFERENTIAL(Performed 07/12/2014) * GLUCOSE ACCUCHECK(Performed 07/12/2014) * GLUCOSE ACCUCHECK(Performed 07/12/2014) * GLUCOSE ACCUCHECK(Performed 07/11/2014) * CYTOGENETICS CANCER PANEL(Performed 07/11/2014) Performed for AML (acute myeloblastic leukemia) [ICD-9-CM] * GLUCOSE ACCUCHECK(Performed 07/11/2014) * CHROMOSOME ANALYSIS PANEL(Performed 07/11/2014) * BASIC METABOLIC PANEL (CALCIUM TOTAL)(Performed 07/11/2014) * TACROLIMUS LEVEL(Performed 07/11/2014) * GLUCOSE ACCUCHECK(Performed 07/11/2014) * DIFFERENTIAL MANUAL(Performed 07/11/2014) * CBC W AUTO DIFFERENTIAL(Performed 07/11/2014) * COMPREHENSIVE METABOLIC PANEL(Performed 07/11/2014) * MAGNESIUM BLOOD(Performed 07/11/2014) * PHOSPHORUS BLOOD(Performed 07/11/2014) * CBC W AUTO DIFFERENTIAL(Performed 07/11/2014) * GLUCOSE ACCUCHECK(Performed 07/11/2014) * GLUCOSE ACCUCHECK(Performed 07/10/2014) * GLUCOSE ACCUCHECK(Performed 07/10/2014) * GLUCOSE ACCUCHECK(Performed 07/10/2014) * GLUCOSE ACCUCHECK(Performed 07/10/2014) * TACROLIMUS LEVEL(Performed 07/10/2014) * DIFFERENTIAL MANUAL(Performed 07/10/2014) * CBC W AUTO DIFFERENTIAL(Performed 07/10/2014) * CBC W AUTO DIFFERENTIAL(Performed 07/10/2014) * COMPREHENSIVE METABOLIC PANEL(Performed 07/10/2014) * PHOSPHORUS BLOOD(Performed 07/10/2014) * MAGNESIUM BLOOD(Performed 07/10/2014) * GLUCOSE ACCUCHECK(Performed 07/10/2014) * GLUCOSE ACCUCHECK(Performed 07/09/2014) * GLUCOSE ACCUCHECK(Performed 07/09/2014) * GLUCOSE ACCUCHECK(Performed 07/09/2014) * TACROLIMUS LEVEL(Performed 07/09/2014) * COMPREHENSIVE METABOLIC PANEL(Performed 07/09/2014) * PHOSPHORUS BLOOD(Performed 07/09/2014) * MAGNESIUM BLOOD(Performed 07/09/2014) * CBC W AUTO DIFFERENTIAL(Performed 07/09/2014) * CBC W AUTO DIFFERENTIAL(Performed 07/09/2014) * GLUCOSE ACCUCHECK(Performed 07/08/2014) * GLUCOSE ACCUCHECK(Performed 07/08/2014) * TACROLIMUS LEVEL(Performed 07/08/2014) * DIFFERENTIAL MANUAL(Performed 07/08/2014) * CBC W AUTO DIFFERENTIAL(Performed 07/08/2014) * COMPREHENSIVE METABOLIC PANEL(Performed 07/08/2014) * PHOSPHORUS BLOOD(Performed 07/08/2014) * MAGNESIUM BLOOD(Performed 07/08/2014) * CBC W AUTO DIFFERENTIAL(Performed 07/08/2014) * POST TRANSPLANT ENGRAFTMENT ANALYSIS(Performed 07/07/2014) * XR CHEST 1VW(Performed 07/07/2014) * TACROLIMUS LEVEL(Performed 07/07/2014) * CBC W AUTO DIFFERENTIAL(Performed 07/07/2014) * DIFFERENTIAL MANUAL(Performed 07/07/2014) * PHOSPHORUS BLOOD(Performed 07/07/2014) * MAGNESIUM BLOOD(Performed 07/07/2014) * COMPREHENSIVE METABOLIC PANEL(Performed 07/07/2014) * CBC W AUTO DIFFERENTIAL(Performed 07/07/2014) * TACROLIMUS LEVEL(Performed 07/06/2014) * RBC MORPHOLOGY(Performed 07/06/2014) * CBC W AUTO DIFFERENTIAL(Performed 07/06/2014) * CBC W AUTO DIFFERENTIAL(Performed 07/06/2014) * COMPREHENSIVE METABOLIC PANEL(Performed 07/06/2014) * MAGNESIUM BLOOD(Performed 07/06/2014) * PHOSPHORUS BLOOD(Performed 07/06/2014) * DOUG-ARRIAZA VIRUS PCR QUANT BLOOD/CSF(Performed 07/06/2014) * CYTOMEGALOVIRUS DNA RT-PCR QUANT(Performed 07/06/2014) * TACROLIMUS LEVEL(Performed 07/05/2014) * DIFFERENTIAL MANUAL(Performed 07/05/2014) * CBC W AUTO DIFFERENTIAL(Performed 07/05/2014) * CBC W AUTO DIFFERENTIAL(Performed 07/05/2014) * MAGNESIUM BLOOD(Performed 07/05/2014) * COMPREHENSIVE METABOLIC PANEL(Performed 07/05/2014) * PHOSPHORUS BLOOD(Performed 07/05/2014) * TACROLIMUS LEVEL(Performed 07/04/2014) * DOUG-ARRIAZA VIRUS PCR QUANT BLOOD/CSF(Performed 07/04/2014) * DIFFERENTIAL MANUAL(Performed 07/04/2014) * CBC W AUTO DIFFERENTIAL(Performed 07/04/2014) * MAGNESIUM BLOOD(Performed 07/04/2014) * PHOSPHORUS BLOOD(Performed 07/04/2014) * COMPREHENSIVE METABOLIC PANEL(Performed 07/04/2014) * CBC W AUTO DIFFERENTIAL(Performed 07/04/2014) * TACROLIMUS LEVEL(Performed 07/03/2014) * CBC W AUTO DIFFERENTIAL(Performed 07/03/2014) * DIFFERENTIAL MANUAL(Performed 07/03/2014) * PHOSPHORUS BLOOD(Performed 07/03/2014) * MAGNESIUM BLOOD(Performed 07/03/2014) * COMPREHENSIVE METABOLIC PANEL(Performed 07/03/2014) * CBC W AUTO DIFFERENTIAL(Performed 07/03/2014) * TACROLIMUS LEVEL(Performed 07/02/2014) * CBC W AUTO DIFFERENTIAL(Performed 07/02/2014) * DIFFERENTIAL MANUAL(Performed 07/02/2014) * MAGNESIUM BLOOD(Performed 07/02/2014) * COMPREHENSIVE METABOLIC PANEL(Performed 07/02/2014) * PHOSPHORUS BLOOD(Performed 07/02/2014) * CBC W AUTO DIFFERENTIAL(Performed 07/02/2014) * TACROLIMUS LEVEL(Performed 07/01/2014) * DIFFERENTIAL MANUAL(Performed 07/01/2014) * CBC W AUTO DIFFERENTIAL(Performed 07/01/2014) * COMPREHENSIVE METABOLIC PANEL(Performed 07/01/2014) * PHOSPHORUS BLOOD(Performed 07/01/2014) * MAGNESIUM BLOOD(Performed 07/01/2014) * CBC W AUTO DIFFERENTIAL(Performed 07/01/2014) * CYTOMEGALOVIRUS DNA RT-PCR QUANT(Performed 07/01/2014) * C DIFFICILE GDH AG + TOXIN A+B(Performed 06/30/2014) * CULTURE BLOOD(Performed 06/30/2014) * CULTURE BLOOD(Performed 06/30/2014) * CULTURE BLOOD(Performed 06/30/2014) * TACROLIMUS LEVEL(Performed 06/30/2014) * COMPREHENSIVE METABOLIC PANEL(Performed 06/30/2014) * MAGNESIUM BLOOD(Performed 06/30/2014) * PHOSPHORUS BLOOD(Performed 06/30/2014) * CBC W AUTO DIFFERENTIAL(Performed 06/30/2014) * CBC W AUTO DIFFERENTIAL(Performed 06/30/2014) * TACROLIMUS LEVEL(Performed 06/29/2014) * MAGNESIUM BLOOD(Performed 06/29/2014) * COMPREHENSIVE METABOLIC PANEL(Performed 06/29/2014) * PHOSPHORUS BLOOD(Performed 06/29/2014) * CBC W AUTO DIFFERENTIAL(Performed 06/29/2014) * CBC W AUTO DIFFERENTIAL(Performed 06/29/2014) * TACROLIMUS LEVEL(Performed 06/28/2014) * DIFFERENTIAL MANUAL(Performed 06/28/2014) * CBC W AUTO DIFFERENTIAL(Performed 06/28/2014) * COMPREHENSIVE METABOLIC PANEL(Performed 06/28/2014) * PHOSPHORUS BLOOD(Performed 06/28/2014) * MAGNESIUM BLOOD(Performed 06/28/2014) * CBC W AUTO DIFFERENTIAL(Performed 06/28/2014) * PATHOLOGY TISSUE(Performed 06/27/2014) * CULTURE URINE(Performed 06/27/2014) * FLOW CYTOMETRY PANEL(Performed 06/27/2014) * TACROLIMUS LEVEL(Performed 06/27/2014) * CBC W AUTO DIFFERENTIAL(Performed 06/27/2014) * DIFFERENTIAL MANUAL(Performed 06/27/2014) * PHOSPHORUS BLOOD(Performed 06/27/2014) * MAGNESIUM BLOOD(Performed 06/27/2014) * COMPREHENSIVE METABOLIC PANEL(Performed 06/27/2014) * PT-INR SLH(Performed 06/27/2014) * CBC W AUTO DIFFERENTIAL(Performed 06/27/2014) * URINALYSIS W/MICROSCOPIC NO CULTURE(Performed 06/26/2014) * BK VIRUS PCR QUANTITATIVE URINE(Performed 06/26/2014) * TACROLIMUS LEVEL(Performed 06/26/2014) * DIFFERENTIAL MANUAL(Performed 06/25/2014) * CBC W AUTO DIFFERENTIAL(Performed 06/25/2014) * PHOSPHORUS BLOOD(Performed 06/25/2014) * MAGNESIUM BLOOD(Performed 06/25/2014) * COMPREHENSIVE METABOLIC PANEL(Performed 06/25/2014) * CBC W AUTO DIFFERENTIAL(Performed 06/25/2014) * TACROLIMUS LEVEL(Performed 06/25/2014) * DOUG-ARRIAZA VIRUS PCR QUANT BLOOD/CSF(Performed 06/25/2014) * CBC W AUTO DIFFERENTIAL(Performed 06/25/2014) * DIFFERENTIAL MANUAL(Performed 06/25/2014) * PHOSPHORUS BLOOD(Performed 06/25/2014) * MAGNESIUM BLOOD(Performed 06/25/2014) * COMPREHENSIVE METABOLIC PANEL(Performed 06/25/2014) * CBC W AUTO DIFFERENTIAL(Performed 06/25/2014) * BASIC METABOLIC PANEL (CALCIUM TOTAL)(Performed 06/24/2014) * CYTOGENETICS CANCER PANEL(Performed 06/24/2014) Performed for AML (acute myeloblastic leukemia) [ICD-9-CM] * FISH XX-XY(Performed 06/24/2014) * CHROMOSOME ANALYSIS PANEL(Performed 06/24/2014) * TACROLIMUS LEVEL(Performed 06/24/2014) * CBC W AUTO DIFFERENTIAL(Performed 06/24/2014) * DIFFERENTIAL MANUAL(Performed 06/24/2014) * CBC W AUTO DIFFERENTIAL(Performed 06/24/2014) * MAGNESIUM BLOOD(Performed 06/24/2014) * PHOSPHORUS BLOOD(Performed 06/24/2014) * COMPREHENSIVE METABOLIC PANEL(Performed 06/24/2014) * CYTOMEGALOVIRUS DNA RT-PCR QUANT(Performed 06/24/2014) * C DIFFICILE GDH AG + TOXIN A+B(Performed 06/23/2014) * CBC W AUTO DIFFERENTIAL(Performed 06/23/2014) * MANUAL DIFFERENTIAL REVIEWED(Performed 06/23/2014) * TACROLIMUS LEVEL(Performed 06/23/2014) * DIFFERENTIAL MANUAL(Performed 06/23/2014) * CBC W AUTO DIFFERENTIAL(Performed 06/23/2014) * PHOSPHORUS BLOOD(Performed 06/23/2014) * MAGNESIUM BLOOD(Performed 06/23/2014) * COMPREHENSIVE METABOLIC PANEL(Performed 06/23/2014) * TACROLIMUS LEVEL(Performed 06/22/2014) * DIFFERENTIAL MANUAL(Performed 06/22/2014) * CBC W AUTO DIFFERENTIAL(Performed 06/22/2014) * CBC W AUTO DIFFERENTIAL(Performed 06/22/2014) * PHOSPHORUS BLOOD(Performed 06/22/2014) * MAGNESIUM BLOOD(Performed 06/22/2014) * COMPREHENSIVE METABOLIC PANEL(Performed 06/22/2014) * TACROLIMUS LEVEL(Performed 06/21/2014) * CBC W AUTO DIFFERENTIAL(Performed 06/21/2014) * MANUAL DIFFERENTIAL REVIEWED(Performed 06/21/2014) * DIFFERENTIAL MANUAL(Performed 06/21/2014) * PHOSPHORUS BLOOD(Performed 06/21/2014) * MAGNESIUM BLOOD(Performed 06/21/2014) * COMPREHENSIVE METABOLIC PANEL(Performed 06/21/2014) * CBC W AUTO DIFFERENTIAL(Performed 06/21/2014) * TACROLIMUS LEVEL(Performed 06/20/2014) * DOUG-ARRIAZA VIRUS PCR QUANT BLOOD/CSF(Performed 06/20/2014) * CBC W AUTO DIFFERENTIAL(Performed 06/20/2014) * DIFFERENTIAL MANUAL(Performed 06/20/2014) * IGG BLOOD(Performed 06/20/2014) * PHOSPHORUS BLOOD(Performed 06/20/2014) * MAGNESIUM BLOOD(Performed 06/20/2014) * COMPREHENSIVE METABOLIC PANEL(Performed 06/20/2014) * CBC W AUTO DIFFERENTIAL(Performed 06/20/2014) * TACROLIMUS LEVEL(Performed 06/19/2014) * CBC W AUTO DIFFERENTIAL(Performed 06/19/2014) * DIFFERENTIAL MANUAL(Performed 06/19/2014) * PHOSPHORUS BLOOD(Performed 06/19/2014) * MAGNESIUM BLOOD(Performed 06/19/2014) * COMPREHENSIVE METABOLIC PANEL(Performed 06/19/2014) * CBC W AUTO DIFFERENTIAL(Performed 06/19/2014) * XR CHEST 1VW PORTABLE(Performed 06/18/2014) * TACROLIMUS LEVEL(Performed 06/18/2014) * PHOSPHORUS BLOOD(Performed 06/18/2014) * MAGNESIUM BLOOD(Performed 06/18/2014) * COMPREHENSIVE METABOLIC PANEL(Performed 06/18/2014) * CBC W AUTO DIFFERENTIAL(Performed 06/18/2014) * DIFFERENTIAL MANUAL(Performed 06/18/2014) * CBC W AUTO DIFFERENTIAL(Performed 06/18/2014) * CULTURE BLOOD(Performed 06/17/2014) * CULTURE BLOOD(Performed 06/17/2014) * TACROLIMUS LEVEL(Performed 06/17/2014) * MAGNESIUM BLOOD(Performed 06/17/2014) * PHOSPHORUS BLOOD(Performed 06/17/2014) * COMPREHENSIVE METABOLIC PANEL(Performed 06/17/2014) * CBC W AUTO DIFFERENTIAL(Performed 06/17/2014) * DIFFERENTIAL MANUAL(Performed 06/17/2014) * CBC W AUTO DIFFERENTIAL(Performed 06/17/2014) * TACROLIMUS LEVEL(Performed 06/16/2014) * CROSSMATCH RBC LEUKOREDUCED(Performed 06/16/2014) * TYPE + SCREEN PANEL(Performed 06/16/2014) * CBC W AUTO DIFFERENTIAL(Performed 06/15/2014) * DIFFERENTIAL MANUAL(Performed 06/15/2014) * CBC W AUTO DIFFERENTIAL(Performed 06/15/2014) * PHOSPHORUS BLOOD(Performed 06/15/2014) * MAGNESIUM BLOOD(Performed 06/15/2014) * COMPREHENSIVE METABOLIC PANEL(Performed 06/15/2014) * CYTOMEGALOVIRUS DNA RT-PCR QUANT(Performed 06/15/2014) * TACROLIMUS LEVEL(Performed 06/15/2014) * PLATELET COUNT AUTO(Performed 06/15/2014) * DIFFERENTIAL MANUAL(Performed 06/15/2014) * CBC W AUTO DIFFERENTIAL(Performed 06/15/2014) * CBC W AUTO DIFFERENTIAL(Performed 06/15/2014) * PHOSPHORUS BLOOD(Performed 06/15/2014) * MAGNESIUM BLOOD(Performed 06/15/2014) * COMPREHENSIVE METABOLIC PANEL(Performed 06/15/2014) * PLATELET COUNT AUTO(Performed 06/14/2014) * TACROLIMUS LEVEL(Performed 06/14/2014) * DIFFERENTIAL MANUAL(Performed 06/14/2014) * CBC W AUTO DIFFERENTIAL(Performed 06/14/2014) * CBC W AUTO DIFFERENTIAL(Performed 06/14/2014) * PHOSPHORUS BLOOD(Performed 06/14/2014) * MAGNESIUM BLOOD(Performed 06/14/2014) * COMPREHENSIVE METABOLIC PANEL(Performed 06/14/2014) * XR CHEST 1VW PORTABLE(Performed 06/13/2014) * TACROLIMUS LEVEL(Performed 06/13/2014) * DOUG-ARRIAZA VIRUS PCR QUANT BLOOD/CSF(Performed 06/13/2014) * DIFFERENTIAL MANUAL(Performed 06/13/2014) * CBC W AUTO DIFFERENTIAL(Performed 06/13/2014) * CBC W AUTO DIFFERENTIAL(Performed 06/13/2014) * PHOSPHORUS BLOOD(Performed 06/13/2014) * MAGNESIUM BLOOD(Performed 06/13/2014) * COMPREHENSIVE METABOLIC PANEL(Performed 06/13/2014) * TACROLIMUS LEVEL(Performed 06/12/2014) * COMPREHENSIVE METABOLIC PANEL(Performed 06/12/2014) * PHOSPHORUS BLOOD(Performed 06/12/2014) * MAGNESIUM BLOOD(Performed 06/12/2014) * CBC W AUTO DIFFERENTIAL(Performed 06/12/2014) * CBC W AUTO DIFFERENTIAL(Performed 06/12/2014) * C DIFFICILE GDH AG + TOXIN A+B(Performed 06/11/2014) * TACROLIMUS LEVEL(Performed 06/11/2014) * RBC MORPHOLOGY(Performed 06/11/2014) * CBC W AUTO DIFFERENTIAL(Performed 06/11/2014) * PHOSPHORUS BLOOD(Performed 06/11/2014) * MAGNESIUM BLOOD(Performed 06/11/2014) * COMPREHENSIVE METABOLIC PANEL(Performed 06/11/2014) * CBC W AUTO DIFFERENTIAL(Performed 06/11/2014) * EKG 12-LEAD(Performed 06/11/2014) * XR CHEST 1VW PORTABLE(Performed 06/10/2014) * TACROLIMUS LEVEL(Performed 06/10/2014) * MAGNESIUM BLOOD(Performed 06/10/2014) * COMPREHENSIVE METABOLIC PANEL(Performed 06/10/2014) * PHOSPHORUS BLOOD(Performed 06/10/2014) * CBC W AUTO DIFFERENTIAL(Performed 06/10/2014) * CBC W AUTO DIFFERENTIAL(Performed 06/10/2014) * TACROLIMUS LEVEL(Performed 06/09/2014) * PHOSPHORUS BLOOD(Performed 06/09/2014) * MAGNESIUM BLOOD(Performed 06/09/2014) * COMPREHENSIVE METABOLIC PANEL(Performed 06/09/2014) * CBC W AUTO DIFFERENTIAL(Performed 06/09/2014) * CBC W AUTO DIFFERENTIAL(Performed 06/09/2014) * CYTOMEGALOVIRUS DNA RT-PCR QUANT(Performed 06/09/2014) * TACROLIMUS LEVEL(Performed 06/08/2014) * XR CHEST 1VW PORTABLE(Performed 06/08/2014) * COMPREHENSIVE METABOLIC PANEL(Performed 06/08/2014) * PHOSPHORUS BLOOD(Performed 06/08/2014) * MAGNESIUM BLOOD(Performed 06/08/2014) * CBC W AUTO DIFFERENTIAL(Performed 06/08/2014) * CBC W AUTO DIFFERENTIAL(Performed 06/08/2014) * FLOW CTP CD3/CD34/CD45 COUNT RESULT ONLY(Performed 06/07/2014) * TACROLIMUS LEVEL(Performed 06/07/2014) * TYPE + SCREEN PANEL(Performed 06/07/2014) * CBC W AUTO DIFFERENTIAL(Performed 06/07/2014) * CBC W AUTO DIFFERENTIAL(Performed 06/07/2014) * PHOSPHORUS BLOOD(Performed 06/07/2014) * MAGNESIUM BLOOD(Performed 06/07/2014) * COMPREHENSIVE METABOLIC PANEL(Performed 06/07/2014) * DOUG-ARRIAZA VIRUS PCR QUANT BLOOD/CSF(Performed 06/07/2014) * TACROLIMUS LEVEL(Performed 06/06/2014) * RBC MORPHOLOGY(Performed 06/06/2014) * CBC W AUTO DIFFERENTIAL(Performed 06/06/2014) * CBC W AUTO DIFFERENTIAL(Performed 06/06/2014) * PHOSPHORUS BLOOD(Performed 06/06/2014) * MAGNESIUM BLOOD(Performed 06/06/2014) * COMPREHENSIVE METABOLIC PANEL(Performed 06/06/2014) * PHOSPHORUS BLOOD(Performed 06/05/2014) * MAGNESIUM BLOOD(Performed 06/05/2014) * COMPREHENSIVE METABOLIC PANEL(Performed 06/05/2014) * CBC W AUTO DIFFERENTIAL(Performed 06/05/2014) * CBC W AUTO DIFFERENTIAL(Performed 06/05/2014) * PHOSPHORUS BLOOD(Performed 06/04/2014) * MAGNESIUM BLOOD(Performed 06/04/2014) * COMPREHENSIVE METABOLIC PANEL(Performed 06/04/2014) * CBC W AUTO DIFFERENTIAL(Performed 06/04/2014) * CBC W AUTO DIFFERENTIAL(Performed 06/04/2014) * PHOSPHORUS BLOOD(Performed 06/03/2014) * MAGNESIUM BLOOD(Performed 06/03/2014) * COMPREHENSIVE METABOLIC PANEL(Performed 06/03/2014) * CBC W AUTO DIFFERENTIAL(Performed 06/03/2014) * CBC W AUTO DIFFERENTIAL(Performed 06/03/2014) * CBC W AUTO DIFFERENTIAL(Performed 06/02/2014) * CBC W AUTO DIFFERENTIAL(Performed 06/02/2014) * T4 FREE(Performed 06/02/2014) * TSH(Performed 06/02/2014) * MAGNESIUM BLOOD(Performed 06/02/2014) * COMPREHENSIVE METABOLIC PANEL(Performed 06/02/2014) * PHOSPHORUS BLOOD(Performed 06/02/2014) * LAB HISTORICAL RESULTS-ONBASE(Performed 06/02/2014) * LAB MISC TEST(Performed 06/01/2014) * CBC W AUTO DIFFERENTIAL(Performed 06/01/2014) * CBC W AUTO DIFFERENTIAL(Performed 06/01/2014) * PHOSPHORUS BLOOD(Performed 06/01/2014) * MAGNESIUM BLOOD(Performed 06/01/2014) * COMPREHENSIVE METABOLIC PANEL(Performed 06/01/2014) * URINALYSIS W/MICROSCOPIC NO CULTURE(Performed 05/31/2014) * CULTURE URINE(Performed 05/31/2014) * CULTURE BLOOD(Performed 05/31/2014) * CULTURE BLOOD(Performed 05/31/2014) * CULTURE BLOOD(Performed 05/31/2014) * HCG BETA BLOOD QUANTITATIVE(Performed 05/31/2014) * PHOSPHORUS BLOOD(Performed 05/31/2014) * MAGNESIUM BLOOD(Performed 05/31/2014) * COMPREHENSIVE METABOLIC PANEL(Performed 05/31/2014) * CBC W AUTO DIFFERENTIAL(Performed 05/31/2014) * CBC W AUTO DIFFERENTIAL(Performed 05/31/2014) * EKG 12-LEAD(Performed 05/30/2014) * PHOSPHORUS BLOOD(Performed 05/30/2014) * MAGNESIUM BLOOD(Performed 05/30/2014) * COMPREHENSIVE METABOLIC PANEL(Performed 05/30/2014) * CBC W AUTO DIFFERENTIAL(Performed 05/30/2014) * CBC W AUTO DIFFERENTIAL(Performed 05/30/2014) * NM CARDIAC MUGA SCAN(Performed 05/30/2014) * CULTURE BLOOD(Performed 05/26/2014) * CULTURE BLOOD(Performed 05/26/2014) * CULTURE BLOOD(Performed 05/26/2014) * INFLUENZA A+B PCR(Performed 05/26/2014) * INFLUENZA A+B ANTIGEN RAPID(Performed 05/26/2014) * B-TYPE NATRIURETIC PEPTIDE(Performed 05/26/2014) * HCG BETA BLOOD QUANTITATIVE(Performed 05/26/2014) * PHOSPHORUS BLOOD(Performed 05/26/2014) * MAGNESIUM BLOOD(Performed 05/26/2014) * COMPREHENSIVE METABOLIC PANEL(Performed 05/26/2014) * CBC W AUTO DIFFERENTIAL(Performed 05/26/2014) * CBC W AUTO DIFFERENTIAL(Performed 05/26/2014) * LAB MISC TEST(Performed 05/26/2014) * PRE-TRANSPLANT ENGRAFT(Performed 05/26/2014) * XR CHEST 2VW(Performed 05/26/2014) * ECHO COMPLETE(Performed 05/26/2014) * URINALYSIS REFLEX TO MICROSCOPIC NO CULTURE(Performed 05/24/2014) * NICOTINE METABOLITE URINE(Performed 05/23/2014) * DRUG ABUSE PANEL 10-20+ETHANOL URINE NO CONFIRM(Performed 05/23/2014) * CT CHEST W CONTRAST(Performed 05/23/2014) * CREATININE CLEARANCE URINE TIMED + BLOOD(Performed 05/23/2014) * CREATININE CLEARANCE URINE TIMED + BLOOD(Performed 05/23/2014) * PHOSPHORUS BLOOD(Performed 05/23/2014) * MAGNESIUM BLOOD(Performed 05/23/2014) * COMPREHENSIVE METABOLIC PANEL(Performed 05/23/2014) * CBC W AUTO DIFFERENTIAL(Performed 05/23/2014) * CBC W AUTO DIFFERENTIAL(Performed 05/23/2014) * EKG 12-LEAD(Performed 05/23/2014) * HLA TYPING DNA HIGH RESOLUTION B(Performed 05/18/2014) * HLA TYPING DNA HIGH RESOLUTION DR(Performed 05/18/2014) * HLA TYPING DNA LOW RESOLUTION DR,DQ(Performed 05/18/2014) * HLA TYPING DNA LOW RESOLUTION A,B,C(Performed 05/18/2014) * HLA TYPING DNA HIGH RESOLUTION DQ(Performed 05/18/2014) * HLA TYPING DNA HIGH RESOLUTION C(Performed 05/18/2014) * HLA TYPING DNA HIGH RESOLUTION A(Performed 05/18/2014) * TYPE + SCREEN PANEL(Performed 05/18/2014) * DOUG-ARRIAZA VIRUS ANTIBODY TO VCA IGM(Performed 05/18/2014) * DOUG-ARRIAZA VIRUS ANTIBODY TO VCA IGG(Performed 05/18/2014) * HERPES SIMPLEX 1+2 ANTIBODY IGM(Performed 05/18/2014) * VARICELLA ZOSTER ANTIBODY IGM(Performed 05/18/2014) * CYTOMEGALOVIRUS ANTIBODY IGM BLOOD(Performed 05/18/2014) * CYTOMEGALOVIRUS ANTIBODY IGG BLOOD(Performed 05/18/2014) * VARICELLA ZOSTER ANTIBODY IGG(Performed 05/18/2014) * HERPES SIMPLEX 1+2 AB IGG SPEC(Performed 05/18/2014) * TOXOPLASMA GONDII ANTIBODY IGG(Performed 05/18/2014) * INFECTIOUS DISEASE TESTING NTL(Performed 05/18/2014) * HEPATITIS B SURFACE ANTIBODY(Performed 05/18/2014) * IGM BLOOD(Performed 05/18/2014) * IGG BLOOD(Performed 05/18/2014) * IGA BLOOD(Performed 05/18/2014) * PHOSPHORUS BLOOD(Performed 05/18/2014) * MAGNESIUM BLOOD(Performed 05/18/2014) * LDH BLOOD(Performed 05/18/2014) * CHOLESTEROL BLOOD(Performed 05/18/2014) * URIC ACID BLOOD(Performed 05/18/2014) * TRIGLYCERIDES BLOOD(Performed 05/18/2014) * PTT SLH(Performed 05/18/2014) * PT-INR SLH(Performed 05/18/2014) * RETIC COUNT(Performed 05/18/2014) * DOUG-ARRIAZA VIRUS PCR QUANT BLOOD/CSF(Performed 05/18/2014) * CYTOMEGALOVIRUS DNA RT-PCR QUANT(Performed 05/18/2014) * COMPREHENSIVE METABOLIC PANEL(Performed 05/18/2014) * CBC W AUTO DIFFERENTIAL(Performed 05/18/2014) * CBC W AUTO DIFFERENTIAL(Performed 05/18/2014) * RBC MORPHOLOGY(Performed 05/18/2014) * COMPREHENSIVE METABOLIC PANEL(Performed 05/16/2014) * CBC W AUTO DIFFERENTIAL(Performed 05/16/2014) * DIFFERENTIAL MANUAL(Performed 05/16/2014) * CBC W AUTO DIFFERENTIAL(Performed 05/16/2014) * DIFFERENTIAL MANUAL(Performed 05/13/2014) * CBC W AUTO DIFFERENTIAL(Performed 05/13/2014) * CBC W AUTO DIFFERENTIAL(Performed 05/13/2014) * NICOTINE METABOLITE URINE(Performed 05/11/2014) * DRUG ABUSE PANEL 10-20+ETHANOL URINE NO CONFIRM(Performed 05/11/2014) * CREATININE CLEARANCE URINE TIMED + BLOOD(Performed 05/11/2014) * COMPREHENSIVE METABOLIC PANEL(Performed 05/11/2014) * CREATININE BLOOD(Performed 05/11/2014) * DIFFERENTIAL MANUAL(Performed 05/11/2014) * CBC W AUTO DIFFERENTIAL(Performed 05/11/2014) * CBC W AUTO DIFFERENTIAL(Performed 05/11/2014) * PATHOLOGY/GENETICS HISTORICAL-ONBASE(Performed 05/09/2014) * CBC W AUTO DIFFERENTIAL(Performed 05/04/2014) * DIFFERENTIAL MANUAL(Performed 05/04/2014) * COMPREHENSIVE METABOLIC PANEL(Performed 05/04/2014) * CBC W AUTO DIFFERENTIAL(Performed 05/04/2014) * PTT SLH(Performed 05/04/2014) * CYTOGENETICS CANCER PANEL(Performed 05/03/2014) Performed for AML (acute myeloblastic leukemia) [ICD-9-CM] * HOLD SPECIMEN DNA TISSUE(Performed 05/03/2014) * CHROMOSOME ANALYSIS PANEL(Performed 05/03/2014) * CYTOGENETICS CANCER PANEL(Performed 05/03/2014) * FLOW CYTOMETRY PANEL(Performed 05/03/2014) * PATHOLOGY TISSUE(Performed 05/03/2014) * MAGNESIUM BLOOD(Performed 05/03/2014) * CBC W AUTO DIFFERENTIAL(Performed 05/03/2014) * DIFFERENTIAL MANUAL(Performed 05/03/2014) * COMPREHENSIVE METABOLIC PANEL(Performed 05/03/2014) * CBC W AUTO DIFFERENTIAL(Performed 05/03/2014) * PTT SLH(Performed 05/03/2014) * PATHOLOGY/GENETICS HISTORICAL-ONBASE(Performed 05/03/2014) * PATHOLOGY/GENETICS HISTORICAL-ONBASE(Performed 05/03/2014) * PATHOLOGY/GENETICS HISTORICAL-ONBASE(Performed 05/03/2014) * PATHOLOGY/GENETICS HISTORICAL-ONBASE(Performed 05/03/2014) * PFT-LAB(Performed 05/02/2014) * NM CARDIAC MUGA SCAN(Performed 05/02/2014) * MANUAL DIFFERENTIAL REVIEWED(Performed 05/02/2014) * CBC W AUTO DIFFERENTIAL(Performed 05/02/2014) * DIFFERENTIAL MANUAL(Performed 05/02/2014) * CBC W AUTO DIFFERENTIAL(Performed 05/02/2014) * COMPREHENSIVE METABOLIC PANEL(Performed 05/02/2014) * PTT SLH(Performed 05/02/2014) * DIFFERENTIAL MANUAL(Performed 05/01/2014) * COMPREHENSIVE METABOLIC PANEL(Performed 05/01/2014) * PHOSPHORUS BLOOD(Performed 05/01/2014) * MAGNESIUM BLOOD(Performed 05/01/2014) * LDH BLOOD(Performed 05/01/2014) * CBC W AUTO DIFFERENTIAL(Performed 05/01/2014) * PHOSPHORUS BLOOD(Performed 05/01/2014) * PTT SLH(Performed 05/01/2014) * CBC W AUTO DIFFERENTIAL(Performed 05/01/2014) * CROSSMATCH RBC LEUKOREDUCED(Performed 04/30/2014) * TYPE + SCREEN PANEL(Performed 04/30/2014) * CBC W AUTO DIFFERENTIAL(Performed 04/30/2014) * DIFFERENTIAL MANUAL(Performed 04/30/2014) * MAGNESIUM BLOOD(Performed 04/30/2014) * LDH BLOOD(Performed 04/30/2014) * COMPREHENSIVE METABOLIC PANEL(Performed 04/30/2014) * CBC W AUTO DIFFERENTIAL(Performed 04/30/2014) * PTT SLH(Performed 04/30/2014) * C DIFFICILE GDH AG + TOXIN A+B(Performed 04/29/2014) * DIFFERENTIAL MANUAL(Performed 04/29/2014) * CBC W AUTO DIFFERENTIAL(Performed 04/29/2014) * PTT SL[facility](Performed 04/29/2014) * COMPREHENSIVE METABOLIC PANEL(Performed 04/29/2014) * PHOSPHORUS BLOOD(Performed 04/29/2014) * MAGNESIUM BLOOD(Performed 04/29/2014) * LDH BLOOD(Performed 04/29/2014) * CBC W AUTO DIFFERENTIAL(Performed 04/29/2014) * FIBRIN MONOMER(Performed 04/28/2014) * D-DIMER(Performed 04/28/2014) * PT-INR SLH(Performed 04/28/2014) * FIBRINOGEN ACTIVITY(Performed 04/28/2014) * DIFFERENTIAL MANUAL(Performed 04/28/2014) * CBC W AUTO DIFFERENTIAL(Performed 04/28/2014) * CBC W AUTO DIFFERENTIAL(Performed 04/28/2014) * PHOSPHORUS BLOOD(Performed 04/28/2014) * MAGNESIUM BLOOD(Performed 04/28/2014) * LDH BLOOD(Performed 04/28/2014) * PTT SLH(Performed 04/28/2014) * COMPREHENSIVE METABOLIC PANEL(Performed 04/28/2014) * LAB MISC TEST(Performed 04/27/2014) * PLATELET COUNT AUTO(Performed 04/27/2014) * CBC W AUTO DIFFERENTIAL(Performed 04/27/2014) * DIFFERENTIAL MANUAL(Performed 04/27/2014) * PTT SLH(Performed 04/27/2014) * COMPREHENSIVE METABOLIC PANEL(Performed 04/27/2014) * PHOSPHORUS BLOOD(Performed 04/27/2014) * MAGNESIUM BLOOD(Performed 04/27/2014) * LDH BLOOD(Performed 04/27/2014) * CBC W AUTO DIFFERENTIAL(Performed 04/27/2014) * VANCOMYCIN LEVEL TROUGH(Performed 04/26/2014) * PLATELET COUNT AUTO(Performed 04/26/2014) * URINALYSIS W/MICROSCOPIC NO CULTURE(Performed 04/26/2014) * CULTURE URINE(Performed 04/26/2014) * CULTURE BLOOD(Performed 04/26/2014) * CULTURE BLOOD(Performed 04/26/2014) * XR CHEST 1VW PORTABLE(Performed 04/26/2014) * DIFFERENTIAL MANUAL(Performed 04/26/2014) * CBC W AUTO DIFFERENTIAL(Performed 04/26/2014) * PTT SLH(Performed 04/26/2014) * CBC W AUTO DIFFERENTIAL(Performed 04/26/2014) * COMPREHENSIVE METABOLIC PANEL(Performed 04/26/2014) * PHOSPHORUS BLOOD(Performed 04/26/2014) * MAGNESIUM BLOOD(Performed 04/26/2014) * LDH BLOOD(Performed 04/26/2014) * PLATELET COUNT AUTO(Performed 04/25/2014) * DIFFERENTIAL MANUAL(Performed 04/25/2014) * CBC W AUTO DIFFERENTIAL(Performed 04/25/2014) * CBC W AUTO DIFFERENTIAL(Performed 04/25/2014) * COMPREHENSIVE METABOLIC PANEL(Performed 04/25/2014) * PHOSPHORUS BLOOD(Performed 04/25/2014) * MAGNESIUM BLOOD(Performed 04/25/2014) * LDH BLOOD(Performed 04/25/2014) * PTT SLH(Performed 04/25/2014) * PLATELET COUNT AUTO(Performed 04/24/2014) * PT-INR SLH(Performed 04/24/2014) * VANCOMYCIN LEVEL TROUGH(Performed 04/24/2014) * PLATELET COUNT AUTO(Performed 04/24/2014) * DIFFERENTIAL MANUAL(Performed 04/24/2014) * CBC W AUTO DIFFERENTIAL(Performed 04/24/2014) * COMPREHENSIVE METABOLIC PANEL(Performed 04/24/2014) * PHOSPHORUS BLOOD(Performed 04/24/2014) * LDH BLOOD(Performed 04/24/2014) * PTT SLH(Performed 04/24/2014) * MAGNESIUM BLOOD(Performed 04/24/2014) * CBC W AUTO DIFFERENTIAL(Performed 04/24/2014) * PLATELET COUNT AUTO(Performed 04/23/2014) * CULTURE WOUND+GRAM STAIN(Performed 04/23/2014) * CBC W AUTO DIFFERENTIAL(Performed 04/23/2014) * DIFFERENTIAL MANUAL(Performed 04/23/2014) * CBC W AUTO DIFFERENTIAL(Performed 04/23/2014) * COMPREHENSIVE METABOLIC PANEL(Performed 04/23/2014) * PHOSPHORUS BLOOD(Performed 04/23/2014) * MAGNESIUM BLOOD(Performed 04/23/2014) * LDH BLOOD(Performed 04/23/2014) * PTT SLH(Performed 04/23/2014) * PLATELET COUNT AUTO(Performed 04/22/2014) * VANCOMYCIN LEVEL TROUGH(Performed 04/22/2014) * PREPARE PLATELET PHERESIS UNIT(S)(Performed 04/22/2014) * PREPARE PLATELET PHERESIS UNIT(S)(Performed 04/22/2014) * CROSSMATCH RBC LEUKOREDUCED(Performed 04/22/2014) * PREPARE PLATELET PHERESIS UNIT(S)(Performed 04/22/2014) * PREPARE PLATELET PHERESIS UNIT(S)(Performed 04/22/2014) * PREPARE PLATELET PHERESIS UNIT(S)(Performed 04/22/2014) * CROSSMATCH RBC LEUKOREDUCED(Performed 04/22/2014) * TYPE + SCREEN PANEL(Performed 04/22/2014) * PREPARE PLATELET PHERESIS UNIT(S)(Performed 04/22/2014) * DIFFERENTIAL MANUAL(Performed 04/22/2014) * CBC W AUTO DIFFERENTIAL(Performed 04/22/2014) * COMPREHENSIVE METABOLIC PANEL(Performed 04/22/2014) * PHOSPHORUS BLOOD(Performed 04/22/2014) * MAGNESIUM BLOOD(Performed 04/22/2014) * LDH BLOOD(Performed 04/22/2014) * CBC W AUTO DIFFERENTIAL(Performed 04/22/2014) * PTT SLH(Performed 04/22/2014) * CBC W AUTO DIFFERENTIAL(Performed 04/21/2014) * DIFFERENTIAL MANUAL(Performed 04/21/2014) * COMPREHENSIVE METABOLIC PANEL(Performed 04/21/2014) * PHOSPHORUS BLOOD(Performed 04/21/2014) * MAGNESIUM BLOOD(Performed 04/21/2014) * LDH BLOOD(Performed 04/21/2014) * CBC W AUTO DIFFERENTIAL(Performed 04/21/2014) * PTT SL[facility](Performed 04/21/2014) * VANCOMYCIN LEVEL TROUGH(Performed 04/20/2014) * CYTOGENETICS CANCER PANEL(Performed 04/20/2014) Performed for AML (acute myeloblastic leukemia) [ICD-9-CM] * CHROMOSOME ANALYSIS PANEL(Performed 04/20/2014) * CYTOGENETICS CANCER PANEL(Performed 04/20/2014) * HOLD SPECIMEN DNA TISSUE(Performed 04/20/2014) * FLOW CYTOMETRY PANEL(Performed 04/20/2014) * PATHOLOGY TISSUE(Performed 04/20/2014) * FIBRIN MONOMER(Performed 04/20/2014) * CBC W AUTO DIFFERENTIAL(Performed 04/20/2014) * DIFFERENTIAL MANUAL(Performed 04/20/2014) * PTT [facility](Performed 04/20/2014) * COMPREHENSIVE METABOLIC PANEL(Performed 04/20/2014) * LDH BLOOD(Performed 04/20/2014) * PHOSPHORUS BLOOD(Performed 04/20/2014) * D-DIMER(Performed 04/20/2014) * FIBRINOGEN ACTIVITY(Performed 04/20/2014) * PT-INR SLH(Performed 04/20/2014) * MAGNESIUM BLOOD(Performed 04/20/2014) * CBC W AUTO DIFFERENTIAL(Performed 04/20/2014) * PATHOLOGY/GENETICS HISTORICAL-ONBASE(Performed 04/20/2014) * XR PANOREX(Performed 04/19/2014) * QUANTIFERON TB-GOLD (CLIENT INCUBATED)(Performed 04/19/2014) * VANCOMYCIN LEVEL TROUGH(Performed 04/19/2014) * DIFFERENTIAL MANUAL(Performed 04/19/2014) * CBC W AUTO DIFFERENTIAL(Performed 04/19/2014) * FIBRIN MONOMER(Performed 04/19/2014) * D-DIMER(Performed 04/19/2014) * COMPREHENSIVE METABOLIC PANEL(Performed 04/19/2014) * PHOSPHORUS BLOOD(Performed 04/19/2014) * MAGNESIUM BLOOD(Performed 04/19/2014) * LDH BLOOD(Performed 04/19/2014) * CBC W AUTO DIFFERENTIAL(Performed 04/19/2014) * FIBRINOGEN ACTIVITY(Performed 04/19/2014) * PTT SLH(Performed 04/19/2014) * PT-INR SLH(Performed 04/19/2014) * US ABDOMEN LIMITED(Performed 04/18/2014) * CROSSMATCH RBC LEUKOREDUCED(Performed 04/18/2014) * CROSSMATCH RBC LEUKOREDUCED(Performed 04/18/2014) * TYPE + SCREEN PANEL(Performed 04/18/2014) * CBC W AUTO DIFFERENTIAL(Performed 04/18/2014) * DIFFERENTIAL MANUAL(Performed 04/18/2014) * FIBRIN MONOMER(Performed 04/18/2014) * FIBRINOGEN ACTIVITY(Performed 04/18/2014) * D-DIMER(Performed 04/18/2014) * PTT SLH(Performed 04/18/2014) * PT-INR SLH(Performed 04/18/2014) * COMPREHENSIVE METABOLIC PANEL(Performed 04/18/2014) * PHOSPHORUS BLOOD(Performed 04/18/2014) * MAGNESIUM BLOOD(Performed 04/18/2014) * LDH BLOOD(Performed 04/18/2014) * CBC W AUTO DIFFERENTIAL(Performed 04/18/2014) * CULTURE BLOOD(Performed 04/17/2014) * CULTURE BLOOD(Performed 04/17/2014) * PLATELET COUNT AUTO(Performed 04/17/2014) * PLATELET COUNT AUTO(Performed 04/17/2014) * CBC W AUTO DIFFERENTIAL(Performed 04/17/2014) * DIFFERENTIAL MANUAL(Performed 04/17/2014) * FIBRIN MONOMER(Performed 04/17/2014) * COMPREHENSIVE METABOLIC PANEL(Performed 04/17/2014) * CBC W AUTO DIFFERENTIAL(Performed 04/17/2014) * PHOSPHORUS BLOOD(Performed 04/17/2014) * MAGNESIUM BLOOD(Performed 04/17/2014) * LDH BLOOD(Performed 04/17/2014) * D-DIMER(Performed 04/17/2014) * FIBRINOGEN ACTIVITY(Performed 04/17/2014) * PTT SLH(Performed 04/17/2014) * PT-INR SLH(Performed 04/17/2014) * LDH BLOOD(Performed 04/16/2014) * PHOSPHORUS BLOOD(Performed 04/16/2014) * MAGNESIUM BLOOD(Performed 04/16/2014) * COMPREHENSIVE METABOLIC PANEL(Performed 04/16/2014) * URIC ACID BLOOD(Performed 04/16/2014) * D-DIMER(Performed 04/16/2014) * FIBRINOGEN ACTIVITY(Performed 04/16/2014) * PTT SLH(Performed 04/16/2014) * PT-INR SLH(Performed 04/16/2014) * C DIFFICILE GDH AG + TOXIN A+B(Performed 04/16/2014) * FIBRIN MONOMER(Performed 04/16/2014) * LDH BLOOD(Performed 04/16/2014) * PHOSPHORUS BLOOD(Performed 04/16/2014) * MAGNESIUM BLOOD(Performed 04/16/2014) * COMPREHENSIVE METABOLIC PANEL(Performed 04/16/2014) * URIC ACID BLOOD(Performed 04/16/2014) * D-DIMER(Performed 04/16/2014) * FIBRINOGEN ACTIVITY(Performed 04/16/2014) * PT-INR SLH(Performed 04/16/2014) * PTT SLH(Performed 04/16/2014) * CBC W AUTO DIFFERENTIAL(Performed 04/16/2014) * DIFFERENTIAL MANUAL(Performed 04/16/2014) * CBC W AUTO DIFFERENTIAL(Performed 04/16/2014) * FIBRIN MONOMER(Performed 04/16/2014) * D-DIMER(Performed 04/16/2014) * PTT SLH(Performed 04/16/2014) * FIBRINOGEN ACTIVITY(Performed 04/16/2014) * PT-INR SLH(Performed 04/16/2014) * LDH BLOOD(Performed 04/16/2014) * PHOSPHORUS BLOOD(Performed 04/16/2014) * MAGNESIUM BLOOD(Performed 04/16/2014) * COMPREHENSIVE METABOLIC PANEL(Performed 04/16/2014) * URIC ACID BLOOD(Performed 04/16/2014) * PLATELET COUNT AUTO(Performed 04/15/2014) * FIBRIN MONOMER(Performed 04/15/2014) * PHOSPHORUS BLOOD(Performed 04/15/2014) * MAGNESIUM BLOOD(Performed 04/15/2014) * COMPREHENSIVE METABOLIC PANEL(Performed 04/15/2014) * URIC ACID BLOOD(Performed 04/15/2014) * LDH BLOOD(Performed 04/15/2014) * D-DIMER(Performed 04/15/2014) * FIBRINOGEN ACTIVITY(Performed 04/15/2014) * PTT SLH(Performed 04/15/2014) * PT-INR SLH(Performed 04/15/2014) * PHOSPHORUS BLOOD(Performed 04/15/2014) * MAGNESIUM BLOOD(Performed 04/15/2014) * COMPREHENSIVE METABOLIC PANEL(Performed 04/15/2014) * URIC ACID BLOOD(Performed 04/15/2014) * LDH BLOOD(Performed 04/15/2014) * FIBRIN MONOMER(Performed 04/15/2014) * PT-INR SLH(Performed 04/15/2014) * FIBRINOGEN ACTIVITY(Performed 04/15/2014) * D-DIMER(Performed 04/15/2014) * PTT SLH(Performed 04/15/2014) * CBC W AUTO DIFFERENTIAL(Performed 04/15/2014) * DIFFERENTIAL MANUAL(Performed 04/15/2014) * FIBRIN MONOMER(Performed 04/15/2014) * CBC W AUTO DIFFERENTIAL(Performed 04/15/2014) * D-DIMER(Performed 04/15/2014) * PTT SLH(Performed 04/15/2014) * FIBRINOGEN ACTIVITY(Performed 04/15/2014) * PT-INR SLH(Performed 04/15/2014) * LDH BLOOD(Performed 04/15/2014) * PHOSPHORUS BLOOD(Performed 04/15/2014) * MAGNESIUM BLOOD(Performed 04/15/2014) * COMPREHENSIVE METABOLIC PANEL(Performed 04/15/2014) * URIC ACID BLOOD(Performed 04/15/2014) * FIBRIN MONOMER(Performed 04/14/2014) * FIBRINOGEN ACTIVITY(Performed 04/14/2014) * D-DIMER(Performed 04/14/2014) * PTT SLH(Performed 04/14/2014) * PT-INR SLH(Performed 04/14/2014) * PHOSPHORUS BLOOD(Performed 04/14/2014) * MAGNESIUM BLOOD(Performed 04/14/2014) * COMPREHENSIVE METABOLIC PANEL(Performed 04/14/2014) * URIC ACID BLOOD(Performed 04/14/2014) * LDH BLOOD(Performed 04/14/2014) * D-DIMER(Performed 04/14/2014) * PT-INR SLH(Performed 04/14/2014) * COMPREHENSIVE METABOLIC PANEL(Performed 04/14/2014) * PHOSPHORUS BLOOD(Performed 04/14/2014) * MAGNESIUM BLOOD(Performed 04/14/2014) * URIC ACID BLOOD(Performed 04/14/2014) * LDH BLOOD(Performed 04/14/2014) * FIBRIN MONOMER(Performed 04/14/2014) * FIBRINOGEN ACTIVITY(Performed 04/14/2014) * PTT SLH(Performed 04/14/2014) * FIBRIN MONOMER(Performed 04/14/2014) * LDH BLOOD(Performed 04/14/2014) * PHOSPHORUS BLOOD(Performed 04/14/2014) * MAGNESIUM BLOOD(Performed 04/14/2014) * COMPREHENSIVE METABOLIC PANEL(Performed 04/14/2014) * URIC ACID BLOOD(Performed 04/14/2014) * D-DIMER(Performed 04/14/2014) * FIBRINOGEN ACTIVITY(Performed 04/14/2014) * PTT SLH(Performed 04/14/2014) * PT-INR SLH(Performed 04/14/2014) * DIFFERENTIAL MANUAL(Performed 04/14/2014) * CBC W AUTO DIFFERENTIAL(Performed 04/14/2014) * CBC W AUTO DIFFERENTIAL(Performed 04/14/2014) * FIBRIN MONOMER(Performed 04/14/2014) * D-DIMER(Performed 04/14/2014) * PTT SLH(Performed 04/14/2014) * FIBRINOGEN ACTIVITY(Performed 04/14/2014) * PT-INR SLH(Performed 04/14/2014) * PHOSPHORUS BLOOD(Performed 04/14/2014) * MAGNESIUM BLOOD(Performed 04/14/2014) * COMPREHENSIVE METABOLIC PANEL(Performed 04/14/2014) * URIC ACID BLOOD(Performed 04/14/2014) * LDH BLOOD(Performed 04/14/2014) * LDH BLOOD(Performed 04/13/2014) * PHOSPHORUS BLOOD(Performed 04/13/2014) * MAGNESIUM BLOOD(Performed 04/13/2014) * COMPREHENSIVE METABOLIC PANEL(Performed 04/13/2014) * URIC ACID BLOOD(Performed 04/13/2014) * FIBRIN MONOMER(Performed 04/13/2014) * PT-INR SLH(Performed 04/13/2014) * FIBRINOGEN ACTIVITY(Performed 04/13/2014) * D-DIMER(Performed 04/13/2014) * PTT SLH(Performed 04/13/2014) * CULTURE BLOOD FUNGUS(Performed 04/13/2014) * FIBRIN MONOMER(Performed 04/13/2014) * FIBRINOGEN ACTIVITY(Performed 04/13/2014) * D-DIMER(Performed 04/13/2014) * PTT SLH(Performed 04/13/2014) * PT-INR SLH(Performed 04/13/2014) * LDH BLOOD(Performed 04/13/2014) * PHOSPHORUS BLOOD(Performed 04/13/2014) * MAGNESIUM BLOOD(Performed 04/13/2014) * COMPREHENSIVE METABOLIC PANEL(Performed 04/13/2014) * URIC ACID BLOOD(Performed 04/13/2014) * FIBRIN MONOMER(Performed 04/13/2014) * D-DIMER(Performed 04/13/2014) * PTT [facility](Performed 04/13/2014) * FIBRINOGEN ACTIVITY(Performed 04/13/2014) * PT-INR [facility](Performed 04/13/2014) * URIC ACID BLOOD(Performed 04/13/2014) * LDH BLOOD(Performed 04/13/2014) * PHOSPHORUS BLOOD(Performed 04/13/2014) * MAGNESIUM BLOOD(Performed 04/13/2014) * COMPREHENSIVE METABOLIC PANEL(Performed 04/13/2014) * PREPARE PLATELET PHERESIS UNIT(S)(Performed 04/13/2014) * PREPARE CRYOPRECIPITATE UNIT(S)(Performed 04/13/2014) * CROSSMATCH RBC LEUKOREDUCED(Performed 04/13/2014) * CROSSMATCH RBC LEUKOREDUCED(Performed 04/13/2014) * PREPARE PLATELET PHERESIS UNIT(S)(Performed 04/13/2014) * TYPE + SCREEN PANEL(Performed 04/13/2014) * FIBRIN MONOMER(Performed 04/13/2014) * CBC W AUTO DIFFERENTIAL(Performed 04/13/2014) * CBC W AUTO DIFFERENTIAL(Performed 04/13/2014) * PHOSPHORUS BLOOD(Performed 04/13/2014) * MAGNESIUM BLOOD(Performed 04/13/2014) * COMPREHENSIVE METABOLIC PANEL(Performed 04/13/2014) * URIC ACID BLOOD(Performed 04/13/2014) * LDH BLOOD(Performed 04/13/2014) * D-DIMER(Performed 04/13/2014) * FIBRINOGEN ACTIVITY(Performed 04/13/2014) * PTT [facility](Performed 04/13/2014) * PT-INR [facility](Performed 04/13/2014) * FIBRIN MONOMER(Performed 04/12/2014) * FIBRINOGEN ACTIVITY(Performed 04/12/2014) * D-DIMER(Performed 04/12/2014) * PTT [facility](Performed 04/12/2014) * PT-INR [facility](Performed 04/12/2014) * LDH BLOOD(Performed 04/12/2014) * PHOSPHORUS BLOOD(Performed 04/12/2014) * MAGNESIUM BLOOD(Performed 04/12/2014) * COMPREHENSIVE METABOLIC PANEL(Performed 04/12/2014) * URIC ACID BLOOD(Performed 04/12/2014) * FIBRIN MONOMER(Performed 04/12/2014) * LDH BLOOD(Performed 04/12/2014) * PHOSPHORUS BLOOD(Performed 04/12/2014) * MAGNESIUM BLOOD(Performed 04/12/2014) * COMPREHENSIVE METABOLIC PANEL(Performed 04/12/2014) * URIC ACID BLOOD(Performed 04/12/2014) * PT-INR [facility](Performed 04/12/2014) * FIBRINOGEN ACTIVITY(Performed 04/12/2014) * D-DIMER(Performed 04/12/2014) * PTT [facility](Performed 04/12/2014) * FIBRIN MONOMER(Performed 04/12/2014) * LDH BLOOD(Performed 04/12/2014) * MAGNESIUM BLOOD(Performed 04/12/2014) * COMPREHENSIVE METABOLIC PANEL(Performed 04/12/2014) * URIC ACID BLOOD(Performed 04/12/2014) * PHOSPHORUS BLOOD(Performed 04/12/2014) * PT-INR [facility](Performed 04/12/2014) * FIBRINOGEN ACTIVITY(Performed 04/12/2014) * D-DIMER(Performed 04/12/2014) * PTT [facility](Performed 04/12/2014) * DIFFERENTIAL MANUAL(Performed 04/12/2014) * CBC W AUTO DIFFERENTIAL(Performed 04/12/2014) * FIBRIN MONOMER(Performed 04/12/2014) * D-DIMER(Performed 04/12/2014) * FIBRINOGEN ACTIVITY(Performed 04/12/2014) * PTT [facility](Performed 04/12/2014) * PT-INR [facility](Performed 04/12/2014) * LDH BLOOD(Performed 04/12/2014) * PHOSPHORUS BLOOD(Performed 04/12/2014) * MAGNESIUM BLOOD(Performed 04/12/2014) * COMPREHENSIVE METABOLIC PANEL(Performed 04/12/2014) * URIC ACID BLOOD(Performed 04/12/2014) * CBC W AUTO DIFFERENTIAL(Performed 04/12/2014) * FIBRIN MONOMER(Performed 04/11/2014) * PHOSPHORUS BLOOD(Performed 04/11/2014) * MAGNESIUM BLOOD(Performed 04/11/2014) * COMPREHENSIVE METABOLIC PANEL(Performed 04/11/2014) * URIC ACID BLOOD(Performed 04/11/2014) * LDH BLOOD(Performed 04/11/2014) * D-DIMER(Performed 04/11/2014) * PT-INR [facility](Performed 04/11/2014) * FIBRINOGEN ACTIVITY(Performed 04/11/2014) * PTT [facility](Performed 04/11/2014) * FIBRIN MONOMER(Performed 04/11/2014) * D-DIMER(Performed 04/11/2014) * PHOSPHORUS BLOOD(Performed 04/11/2014) * MAGNESIUM BLOOD(Performed 04/11/2014) * COMPREHENSIVE METABOLIC PANEL(Performed 04/11/2014) * URIC ACID BLOOD(Performed 04/11/2014) * LDH BLOOD(Performed 04/11/2014) * FIBRINOGEN ACTIVITY(Performed 04/11/2014) * PTT [facility](Performed 04/11/2014) * PT-INR [facility](Performed 04/11/2014) * FIBRIN MONOMER(Performed 04/11/2014) * D-DIMER(Performed 04/11/2014) * LDH BLOOD(Performed 04/11/2014) * PHOSPHORUS BLOOD(Performed 04/11/2014) * MAGNESIUM BLOOD(Performed 04/11/2014) * COMPREHENSIVE METABOLIC PANEL(Performed 04/11/2014) * URIC ACID BLOOD(Performed 04/11/2014) * PT-INR [facility](Performed 04/11/2014) * FIBRINOGEN ACTIVITY(Performed 04/11/2014) * PTT [facility](Performed 04/11/2014) * CBC W AUTO DIFFERENTIAL(Performed 04/11/2014) * DIFFERENTIAL MANUAL(Performed 04/11/2014) * FIBRIN MONOMER(Performed 04/11/2014) * D-DIMER(Performed 04/11/2014) * CBC W AUTO DIFFERENTIAL(Performed 04/11/2014) * LDH BLOOD(Performed 04/11/2014) * PHOSPHORUS BLOOD(Performed 04/11/2014) * MAGNESIUM BLOOD(Performed 04/11/2014) * COMPREHENSIVE METABOLIC PANEL(Performed 04/11/2014) * URIC ACID BLOOD(Performed 04/11/2014) * PT-INR [facility](Performed 04/11/2014) * FIBRINOGEN ACTIVITY(Performed 04/11/2014) * PTT [facility](Performed 04/11/2014) * PHOSPHORUS BLOOD(Performed 04/10/2014) * MAGNESIUM BLOOD(Performed 04/10/2014) * COMPREHENSIVE METABOLIC PANEL(Performed 04/10/2014) * URIC ACID BLOOD(Performed 04/10/2014) * LDH BLOOD(Performed 04/10/2014) * D-DIMER(Performed 04/10/2014) * FIBRIN MONOMER(Performed 04/10/2014) * PTT [facility](Performed 04/10/2014) * FIBRINOGEN ACTIVITY(Performed 04/10/2014) * PT-INR [facility](Performed 04/10/2014) * FIBRIN MONOMER(Performed 04/10/2014) * D-DIMER(Performed 04/10/2014) * PHOSPHORUS BLOOD(Performed 04/10/2014) * MAGNESIUM BLOOD(Performed 04/10/2014) * COMPREHENSIVE METABOLIC PANEL(Performed 04/10/2014) * URIC ACID BLOOD(Performed 04/10/2014) * LDH BLOOD(Performed 04/10/2014) * PTT [facility](Performed 04/10/2014) * FIBRINOGEN ACTIVITY(Performed 04/10/2014) * PT-INR [facility](Performed 04/10/2014) * FIBRIN MONOMER(Performed 04/10/2014) * D-DIMER(Performed 04/10/2014) * FIBRINOGEN ACTIVITY(Performed 04/10/2014) * PTT [facility](Performed 04/10/2014) * PHOSPHORUS BLOOD(Performed 04/10/2014) * MAGNESIUM BLOOD(Performed 04/10/2014) * COMPREHENSIVE METABOLIC PANEL(Performed 04/10/2014) * LDH BLOOD(Performed 04/10/2014) * URIC ACID BLOOD(Performed 04/10/2014) * PT-INR [facility](Performed 04/10/2014) * FIBRIN MONOMER(Performed 04/10/2014) * PHOSPHORUS BLOOD(Performed 04/10/2014) * MAGNESIUM BLOOD(Performed 04/10/2014) * COMPREHENSIVE METABOLIC PANEL(Performed 04/10/2014) * LDH BLOOD(Performed 04/10/2014) * URIC ACID BLOOD(Performed 04/10/2014) * CBC W AUTO DIFFERENTIAL(Performed 04/10/2014) * DIFFERENTIAL MANUAL(Performed 04/10/2014) * D-DIMER(Performed 04/10/2014) * PT-INR SLH(Performed 04/10/2014) * FIBRINOGEN ACTIVITY(Performed 04/10/2014) * PTT [facility](Performed 04/10/2014) * CBC W AUTO DIFFERENTIAL(Performed 04/10/2014) * FIBRIN MONOMER(Performed 04/09/2014) * D-DIMER(Performed 04/09/2014) * PHOSPHORUS BLOOD(Performed 04/09/2014) * MAGNESIUM BLOOD(Performed 04/09/2014) * COMPREHENSIVE METABOLIC PANEL(Performed 04/09/2014) * URIC ACID BLOOD(Performed 04/09/2014) * LDH BLOOD(Performed 04/09/2014) * FIBRINOGEN ACTIVITY(Performed 04/09/2014) * PT-INR [facility](Performed 04/09/2014) * PTT [facility](Performed 04/09/2014) * D-DIMER(Performed 04/09/2014) * FIBRIN MONOMER(Performed 04/09/2014) * LDH BLOOD(Performed 04/09/2014) * PHOSPHORUS BLOOD(Performed 04/09/2014) * MAGNESIUM BLOOD(Performed 04/09/2014) * COMPREHENSIVE METABOLIC PANEL(Performed 04/09/2014) * URIC ACID BLOOD(Performed 04/09/2014) * PT-INR [facility](Performed 04/09/2014) * FIBRINOGEN ACTIVITY(Performed 04/09/2014) * PTT [facility](Performed 04/09/2014) * FIBRIN MONOMER(Performed 04/09/2014) * D-DIMER(Performed 04/09/2014) * COMPREHENSIVE METABOLIC PANEL(Performed 04/09/2014) * URIC ACID BLOOD(Performed 04/09/2014) * MAGNESIUM BLOOD(Performed 04/09/2014) * LDH BLOOD(Performed 04/09/2014) * PHOSPHORUS BLOOD(Performed 04/09/2014) * PTT [facility](Performed 04/09/2014) * FIBRINOGEN ACTIVITY(Performed 04/09/2014) * PT-INR [facility](Performed 04/09/2014) * DIFFERENTIAL MANUAL(Performed 04/09/2014) * CBC W AUTO DIFFERENTIAL(Performed 04/09/2014) * D-DIMER(Performed 04/09/2014) * COMPREHENSIVE METABOLIC PANEL(Performed 04/09/2014) * URIC ACID BLOOD(Performed 04/09/2014) * PHOSPHORUS BLOOD(Performed 04/09/2014) * MAGNESIUM BLOOD(Performed 04/09/2014) * LDH BLOOD(Performed 04/09/2014) * CBC W AUTO DIFFERENTIAL(Performed 04/09/2014) * FIBRIN MONOMER(Performed 04/09/2014) * FIBRINOGEN ACTIVITY(Performed 04/09/2014) * PT-INR [facility](Performed 04/09/2014) * PTT [facility](Performed 04/09/2014) * FIBRIN MONOMER(Performed 04/08/2014) * D-DIMER(Performed 04/08/2014) * COMPREHENSIVE METABOLIC PANEL(Performed 04/08/2014) * PHOSPHORUS BLOOD(Performed 04/08/2014) * MAGNESIUM BLOOD(Performed 04/08/2014) * LDH BLOOD(Performed 04/08/2014) * URIC ACID BLOOD(Performed 04/08/2014) * PTT [facility](Performed 04/08/2014) * PT-INR [facility](Performed 04/08/2014) * FIBRINOGEN ACTIVITY(Performed 04/08/2014) * DIFFERENTIAL MANUAL(Performed 04/08/2014) * CBC W AUTO DIFFERENTIAL(Performed 04/08/2014) * D-DIMER(Performed 04/08/2014) * FIBRINOGEN ACTIVITY(Performed 04/08/2014) * PHOSPHORUS BLOOD(Performed 04/08/2014) * MAGNESIUM BLOOD(Performed 04/08/2014) * COMPREHENSIVE METABOLIC PANEL(Performed 04/08/2014) * LDH BLOOD(Performed 04/08/2014) * URIC ACID BLOOD(Performed 04/08/2014) * PT-INR [facility](Performed 04/08/2014) * PTT [facility](Performed 04/08/2014) * CBC W AUTO DIFFERENTIAL(Performed 04/08/2014) * HEPATITIS C ANTIBODY(Performed 04/07/2014) * HEPATITIS B CORE ANTIBODY TOTAL(Performed 04/07/2014) * HEPATITIS B SURFACE ANTIGEN W RFLX CONFIRMATION(Performed 04/07/2014) * HIV-1 HIV-2 ANTIGEN/ANTIBODY(Performed 04/07/2014) * HLA TYPING DNA HIGH RESOLUTION B(Performed 04/07/2014) * HLA TYPING DNA HIGH RESOLUTION DR(Performed 04/07/2014) * HLA TYPING DNA LOW RESOLUTION DR,DQ(Performed 04/07/2014) * HLA TYPING DNA LOW RESOLUTION A,B,C(Performed 04/07/2014) * HLA TYPING DNA HIGH RESOLUTION C(Performed 04/07/2014) * CEBPA MUTATION ANALYSIS(Performed 04/07/2014) * HLA TYPING DNA HIGH RESOLUTION DQ(Performed 04/07/2014) * HLA TYPING DNA HIGH RESOLUTION A(Performed 04/07/2014) * TYPE + SCREEN PANEL(Performed 04/07/2014) * CROSSMATCH RBC LEUKOREDUCED(Performed 04/07/2014) * CROSSMATCH RBC LEUKOREDUCED(Performed 04/07/2014) * IR CENTRAL LINE INSERT TUNNEL(Performed 04/07/2014) * IR US GUIDE VASCULAR ACCESS(Performed 04/07/2014) * IR US GUIDE VASCULAR ACCESS(Performed 04/07/2014) * NM CARDIAC MUGA SCAN(Performed 04/07/2014) * DIFFERENTIAL MANUAL(Performed 04/07/2014) * CBC W AUTO DIFFERENTIAL(Performed 04/07/2014) * CBC W AUTO DIFFERENTIAL(Performed 04/07/2014) * BASIC METABOLIC PANEL (CALCIUM TOTAL)(Performed 04/07/2014) * LDH BLOOD(Performed 04/07/2014) * PHOSPHORUS BLOOD(Performed 04/07/2014) * MAGNESIUM BLOOD(Performed 04/07/2014) * LAB MISC TEST(Performed 04/06/2014) * FLOW CYTOMETRY PANEL(Performed 04/06/2014) * FL LUMBAR PUNCT FOR CHEMO INJ(Performed 04/06/2014) * PROTEIN CSF(Performed 04/06/2014) * GLUCOSE CSF(Performed 04/06/2014) * CELL COUNT W DIFF CSF(Performed 04/06/2014) * DIFFERENTIAL MANUAL FLUID(Performed 04/06/2014) * CELL COUNT CSF(Performed 04/06/2014) * CULTURE CSF+GRAM STAIN(Performed 04/06/2014) * CYTOGENETICS CANCER PANEL(Performed 04/06/2014) Performed for AML (acute myeloblastic leukemia) [ICD-9-CM] * MRI BRAIN WWO CONTRAST(Performed 04/06/2014) * CULTURE AEROBIC(Performed 04/06/2014) * CULTURE AFB+SMEAR(Performed 04/06/2014) * CULTURE FUNGUS OTHER+FUNGUS SMEAR(Performed 04/06/2014) * PATHOLOGY TISSUE(Performed 04/06/2014) * HCG URINE QUALITATIVE(Performed 04/06/2014) * CULTURE URINE(Performed 04/06/2014) * URINALYSIS W/MICROSCOPIC NO CULTURE(Performed 04/06/2014) * CYTOGENETICS CANCER PANEL(Performed 04/06/2014) * CHROMOSOME ANALYSIS PANEL(Performed 04/06/2014) * LAB MISC TEST(Performed 04/06/2014) * FLT3 MUTATIONS ITD+D835 PANEL(Performed 04/06/2014) * FLOW CYTOMETRY PANEL(Performed 04/06/2014) * PATHOLOGY TISSUE(Performed 04/06/2014) * CYTOMEGALOVIRUS ANTIBODY IGG BLOOD(Performed 04/06/2014) * CYTOMEGALOVIRUS ANTIBODY IGM BLOOD(Performed 04/06/2014) * HAPTOGLOBIN(Performed 04/06/2014) * CULTURE BLOOD(Performed 04/06/2014) * CYTOMEGALOVIRUS DNA RT-PCR QUANT(Performed 04/06/2014) * XR CHEST 2VW(Performed 04/06/2014) * PATHOLOGY PERIPHERAL SMEAR REVIEW(Performed 04/06/2014) * CBC W AUTO DIFFERENTIAL(Performed 04/06/2014) * LDH BLOOD(Performed 04/06/2014) * DIFFERENTIAL MANUAL(Performed 04/06/2014) * URIC ACID BLOOD(Performed 04/06/2014) * COMPREHENSIVE METABOLIC PANEL(Performed 04/06/2014) * PHOSPHORUS BLOOD(Performed 04/06/2014) * MAGNESIUM BLOOD(Performed 04/06/2014) * D-DIMER(Performed 04/06/2014) * FIBRINOGEN ACTIVITY(Performed 04/06/2014) * PTT [facility](Performed 04/06/2014) * PT-INR [facility](Performed 04/06/2014) * CBC W AUTO DIFFERENTIAL(Performed 04/06/2014) * PATHOLOGY/GENETICS HISTORICAL-ONBASE(Performed 04/06/2014) * PATHOLOGY/GENETICS HISTORICAL-ONBASE(Performed 04/06/2014) * PATHOLOGY/GENETICS HISTORICAL-ONBASE(Performed 04/06/2014) Results * (ABNORMAL) GLUCOSE - POINT OF CARE (01/30/2022 12:28 PM CDT) Only the most recent of14 resultswithin the time period is included. [facility] Glucose WB/POC 395(H) 70 - 115 mg/dL 01/30/2022 12:33 PM CDT [facility] Specimen Type Cap Fingerstick 2021 12:33 PM CDT [facility] Blood BLOOD SPECIMEN / Unknown 01/30/2022 12:28 PM CDT 01/30/2022 12:33 PM CDT Gonzalo Mcclain MD LAB - POINT OF CARE ORDERABLES [facility] [address] [place] [address], [facility] [phone] * CARDIAC EKG ORDER (01/30/2022 11:09 AM CDT) Narrative 01/30/2022 11:09 AM CDT Ordered by an unspecified provider. Scanned Document CARDIAC SERVICES ORD ERABLES * (ABNORMAL) DIFFERENTIAL MANUAL (01/30/2022 12:42 AM CDT) Only the most recent of119 resultswithin the time period is included. [facility] WBC (corrected for NRBC) 15.9 10? 3 /uL 01/30/2022 4:33 AM [facility] Total Cell Count 100 01/30/2022 4:33 AM [facility] Neutrophils Absolute Manual 10.97(H) 1.60 - 7.00 10? 3 /uL 01/30/2022 4:33 AM [facility] Comment:(BANDS+SEGS) x WBC = NEUT # (ANC) Lymphocyte Absolute Manual 2.70 1.10 - 3.90 10? 3 /uL 01/30/2022 4:33 AM [facility] Monocytes Absolute Manual 0.80 0.26 - 1.07 10? 3 /uL 01/30/2022 4:33 AM [facility] Eosinophils Absolute Manual 0.48(H) 0.00 - 0.47 10? 3 /uL 01/30/2022 4:33 AM [facility] Neutrophil % Manual 69 35 - 70 % 01/30/2022 4:33 AM [facility] Lymphocyte % Manual 17(L) 20 - 43 % 01/30/2022 4:33 AM [facility] Monocytes % Manual 5 5 - 13 % 01/30/2022 4:33 AM [facility] Eosinophils % Manual 3 0 - 6 % 01/30/2022 4:33 AM [facility] Atypical Lymphocyte % Manual 6(H) 0 % 01/30/2022 4:33 AM [facility] Platelet Estimate Adequate Adequate 01/30/2022 4:33 AM [facility] Smudge Cells Few(A) None 01/30/2022 4:33 AM [facility] Blood BLOOD SPECIMEN / Unknown Lab Venipuncture / Unknown 01/30/2022 12:42 AM CDT 01/30/2022 1:27 AM [facility] Bandar Vaca PA-C LAB - HEMATOLOGY ORDERABLES [facility] [address] [place] [address], [facility] [phone] * (ABNORMAL) CBC W AUTO DIFFERENTIAL (01/30/2022 12:42 AM CDT) Only the most recent of510 resultswithin the time period is included. WBC 15.9(H) 3.5 - 10.5 10? 3 /uL 01/30/2022 1:35 AM [facility] RBC 5.06 3.80 - 5.20 10? 6 /uL 01/30/2022 1:35 AM [facility] Hemoglobin 14.4 12.0 - 15.6 g/dL 01/30/2022 1:35 AM [facility] Hematocrit 42.5 35.0 - 45.0 % 01/30/2022 1:35 AM [facility] MCV 84.0 80.7 - 98.3 fL 01/30/2022 1:35 AM [facility] MCH 28.5 26.7 - 34.0 pg 01/30/2022 1:35 AM [facility] MCHC 33.9 30.8 - 35.9 g/dL 01/30/2022 1:35 AM [facility] Platelet Count 263 150 - 400 10? 3 /uL 01/30/2022 1:35 AM [facility] RDW-SD 40.0 36.0 - 50.0 fL 01/30/2022 1:35 AM [facility] RDW-CV 13.2 11.2 - 14.8 % 01/30/2022 1:35 AM [facility] MPV 9.2(L) 9.4 - 12.9 fL 01/30/2022 1:35 AM [facility] nRBC Absolute 0.00 0 10? 3 /uL 01/30/2022 1:35 AM [facility] nRBC Auto 0.0 0 /100 WBC 01/30/2022 1:35 AM [facility] Blood BLOOD SPECIMEN / Unknown Lab Venipuncture / Unknown 01/30/2022 12:42 AM CDT 01/30/2022 1:27 AM T Bandar Vaca PA-C LAB - HEMATOLOGY ORDERABLES [facility] [address] [place] [address], [facility] [phone] * PHOSPHORUS BLOOD (01/30/2022 12:42 AM CDT) Only the most recent of278 resultswithin the time period is included. Phosphorus 3.3 2.9 - 5.1 mg/dL 01/30/2022 1:50 AM CDT [facility] Blood BLOOD SPECIMEN / Unknown Lab Venipuncture / Unknown 01/30/2022 12:42 AM CDT 01/30/2022 1:27 AM CDT Bandar Vcaa PA-C LAB - CHEMISTRY O RDERALATOYA Performing Organization Address City/[facility] Co de Phone Number [address] [address], [facility] [phone] * MAGNESIUM BLOOD (01/30/2022 12:42 AM CDT) Only the most recent of279 resultswithin the time period is included. Magnesium 1.9 1.6 - 2.6 mg/dL 01/30/2022 1:50 AM CDT [facility] Blood BLOOD SPECIMEN / Unknown Lab Venipuncture / Unknown 01/30/2022 12:42 AM CDT 01/30/2022 1:27 AM CDT Bandar Vaca PA-C LAB - CHEMISTRY O RDERALATOYA Performing Organization Address City/[facility]/ZIP Co de Phone Number [address] [address], [facility] [phone] * (ABNORMAL) RESPIRATORY PANEL WITH SARS-COV-2 BY PCR ([facility]) (01/28/2022 9:01 AM CDT) Adenovirus PCR Not detected Not detected 01/28/2022 3:39 PM CDT [facility] Coronavirus 229E PCR Not detected Not detected 01/28/2022 3:39 PM CDT [facility] Coronavirus HKU1 PCR Not detected Not detected 01/28/2022 3:39 PM CDT [facility] Coronavirus NL63 PCR Not detected Not detected 01/28/2022 3:39 PM CDT [facility] Coronavirus OC43 PCR Not detected Not detected 01/28/2022 3:39 PM CDT [facility] COVID-19 PCR Not detected Not detected 01/28/2022 3:39 PM CDT [facility] Human Metapneumovirus PCR Not detected Not detected 01/28/2022 3:39 PM CDT [facility] Human Rhinovirus/Enterov irus PCR Detected(A) Not detected 01/28/2022 3:39 PM CDT [facility] Influenza A PCR Not detected Not detected 01/28/2022 3:39 PM CDT [facility] Influenza B PCR Not detected Not detected 01/28/2022 3:39 PM CDT [facility] Parainfluenza Virus 1 PCR Not detected Not detected 01/28/2022 3:39 PM CDT [facility] Parainfluenza Virus 2 PCR Not detected Not detected 01/28/2022 3:39 PM CDT [facility] Parainfluenza Virus 3 PCR Not detected Not detected 01/28/2022 3:39 PM CDT [facility] Parainfluenza Virus 4 PCR Not detected Not detected 01/28/2022 3:39 PM CDT [facility] Respiratory Syncytial Virus PCR Not detected Not detected 01/28/2022 3:39 PM CDT [facility] Bordetella parapertussis PCR Not detected Not detected 01/28/2022 3:39 PM CDT [facility] Bordetella pertussis PCR Not detected Not detected 01/28/2022 3:39 PM CDT [facility] Chlamydia pneumoniae PCR Not detected Not detected 01/28/2022 3:39 PM CDT [facility] Mycoplasma pneumoniae PCR Not detected Not detected 01/28/2022 3:39 PM CDT [facility] Microbiology SPECIMEN FROM NASOPHARYNGEAL STRUCTURE / Unknown Collection / Unknown 01/28/2022 9:01 AM CDT 01/28/2022 9:16 AM CDT Narrative [facility] - 01/28/2022 3:39 PM CDT Contact and Droplet Precautions Required. This nucleic amplification assay has received FDA authorization via the [employer]. Elmer Porter MD LAB - MICROBIOLOGY O RDERABLES Performing Organization Address City/[facility]/ZIP Co de Phone Number [facility] [address] [place] [address], [facility] [phone] * CULTURE BLOOD (01/28/2022 1:33 AM CDT) Only the most recent of55 resultswithin the time period is included. Culture No growth day 5 HOANG 02/02/2022 5:02 AM CDT [facility] Blood PERIPHERAL BLOOD / Unknown Venipuncture / Unknown 01/28/2022 1:33 AM CDT 01/28/2022 1:35 AM CDT Bandar Vaca PA-C LAB - MICROBIOLOG Y ORDERABLES Performing Organization Address [facility] Co de Phone Number [facility] [address] [place] [address], [facility] [phone] * TROPONIN I (01/28/2022 1:27 AM CDT) Only the most recent of2 resultswithin the time period is included. Pathologist [facility] Troponin I <0.010 <0.032 ng/mL 01/28/2022 2:11 AM CDT [facility] Blood BLOOD SPECIMEN / Unknown Venipuncture / Unknown 01/28/2022 1:27 AM CDT 01/28/2022 1:36 AM CDT Bandar Vaca PA-C LAB - CHEMISTRY O RDERABLES Performing Organization Address City/[facility]/ZIP Co de Phone Number [address] [address], [facility] [phone] * STREP PNEUMONIAE ANTIGEN URINE (01/28/2022 12:57 AM CDT) Streptococcus pneumoniae Antigen Urine Negative Negative 01/28/2022 9:04 AM CDT [facility] Urine URINE / Unknown Collection / Unknown 01/28/2022 12:57 AM CDT 01/28/2022 1:05 AM CDT [facility]CROBI[facility] - 01/28/2022 9:04 AM CDT Patients who have received the Streptococcus pneumoniae vaccines may test positive in the 48 hours following vaccination. It is recommended to avoid testing within five days of receiving vaccination. Testing pediatric patients is discouraged because of their high rates of nasal colonization with Streptococcus pneumoniae leading to false positive results. Samples from patients taking antibiotics for more than 24 hours may cause false negatives. Bandar [employer] LAB - MICROBIOLOG Y ORDERABLES Performing Organization Address [facility] Co de Phone Number [facility] [address] [place] [address], [facility] [phone] * LEGIONELLA ANTIGEN URINE (01/28/2022 12:57 AM CDT) Only the most recent of2 resultswithin the time period is included. Legionella Antigen Urine Negative Negative 01/28/2022 9:02 AM CDT [facility] Urine URINE / Unknown Collection / Unknown 01/28/2022 12:57 AM CDT 01/28/2022 1:05 AM CDT [facility] MICROBIOLOGY - 01/28/2022 9:02 AM CDT This assay detects Legionella pneumophila serogroup one (1) antigen. A negative test result does not rule out the possibility of Legionella infection due to other serogroups or species of Legionella. A positive result may indicate a recent or remote infection with serogroup 1. Bandar [employer] LAB - MICROBIOLOG Y ORDERABLES Performing Organization Address [facility] Co de Phone Number [facility] [address] [place] [address], [facility] [phone] * REJECTED SPUTUM GRAM STAIN (01/28/2022 12:56 AM CDT) Gram Stain <10 per low power field Polymorphonuclear cells. Consistent with poor quality specimen. 01/28/2022 6:56 AM CDT [facility] Gram Stain Recollect if clinically indicated. 01/28/2022 6:56 AM CDT [facility] Microbiology SPUTUM / Unknown Collection / Unknown 01/28/2022 12:56 AM CDT 01/28/2022 1:57 AM CDT Bandar Vaca PA-C LAB - MICROBIOLOG Y ORDERABLES [facility] [address] [place] [address], [facility] [phone] * MYCOPLASMA PNEUMONIAE PCR (01/28/2022 12:56 AM CDT) Mycoplasma pneumoniae PCR Not Detected 02/01/2022 3:45 PM CDT [facility] [employer] ([facility]) Comment: NOT DETECTED - A negative result does not rule out the presence of PCR inhibitors in the patient specimen or assay specific nucleic acid in concentrations below the level of detection by the assay. INTERPRETIVE INFORMATION: Mycoplasma pneumoniae by PCR This test was developed and its performance characteristics determined by [facility]. It has not been cleared or approved by the US Food and Drug Administration. This test was performed in a CLIA certified laboratory and is intended for clinical purposes. Performed by [facility], [address] [place] [address] [id number] [email or web address], Manuel Myrick MD, PHD, Lab. Director Source Mycoplasma PCR Sputum 02/01/2022 3:45 PM CDT [facility]) Microbiology SPUTUM / Unknown Collection / Unknown 01/28/2022 12:56 AM CDT 01/28/2022 1:05 AM CDT Bandar Bose-C LAB - MICROBIOLOG Y ORDERABLES Performing Organization Address City/[facility]/ZIP Co de Phone Number [facility] [employer] [facility]) [address] [place], [place] [id number] [place] [address] * PROCALCITONIN LEVEL (01/28/2022 12:04 AM CDT) PROCALCITONIN 0.10 <=0.10 ng/mL 01/28/2022 4:22 AM CDT [facility] Blood BLOOD SPECIMEN / Unknown Lab Venipuncture / Unknown 01/28/2022 12:04 AM CDT 01/28/2022 3:23 AM CDT Narrative [facility] - 01/28/2022 4:22 AM CDT The change in procalcitonin (PCT) concentration over time provides support in decision making on antibiotic discontinuation for suspected or confirmed septic patients. Follow-up samples should be tested once every 1-2 days based upon physician discretion taking into account the patient? s evolution and progress. Consider discontinuation of ??antibiotic therapy ??if the PCT current ??is <= 0.5 ng/mL or if the delta PCT is > 80%. ??Duration of antibiotics should not be determined solely on PCT; established guidelines for the indication should be followed. ? PCT peak: ??Highest observed PCT concentration ? PCT current: Most recent PCT concentration ? Calculate delta PCT using the following equation: ?Delta PCT ??= ?? PCT Peak ? PCT current ??X 100% ? PCT Peak The Change in Procalcitonin Calculator is available at [email or web address] ?? If clinical picture has not improved and PCT remains high, reevaluate and consider treatment failure or other causes. Bandar Vaca PA-C LAB - CHEMISTRY O RDERABLES [address] [address], [facility] [phone] * (ABNORMAL) HEMOGLOBIN A1C (01/28/2022 12:04 AM CDT) Only the most recent of20 resultswithin the time period is included. Hemoglobin A1c 10.5(H) <=5.6 % 01/28/2022 8:48 AM [facility] Estimated Average Glucose 255 mg/dL 01/28/2022 8:48 AM [facility] Comment: HbA1c Interpretation: Normal : < 5.7% Pre-diabetes: 5.7-6.4% Diabetes: Equal to or greater than 6.5% Test results diagnostic of diabetes should be repeated for confirmation. Treatment target values recommended by ADA and other clinical organizations should be used to evaluate metabolic control in patients. Reference: [place] [employer], Standards of Care in Diabetes [...] Vaca PA-C LAB - CHEMISTRY O RDERABLES [address] [address], [facility] [phone] * (ABNORMAL) BASIC METABOLIC PANEL (CALCIUM TOTAL) (01/28/2022 12:04 AM CDT) Only the most recent of5 resultswithin the time period is included. BUN 13 7 - 26 mg/dL 01/28/2022 3:52 AM [facility] Creatinine 0.69 0.56 - 0.96 mg/dL 01/28/2022 3:52 AM [facility] Sodium 138 136 - 145 mmol/L 01/28/2022 3:52 AM [facility] Potassium 4.9(H) 3.5 - 4.5 mmol/L 01/28/2022 3:52 AM [facility] Chloride 99 98 - 107 mmol/L 01/28/2022 3:52 AM [facility] CO2 23 22 - 29 mmol/L 01/28/2022 3:52 AM [facility] Glucose 343(H) 70 - 115 mg/dL 01/28/2022 3:52 AM [facility] Calcium 8.5 8.4 - 10.2 mg/dL 01/28/2022 3:52 AM [facility] Anion Gap 21(H) 8 - 18 01/28/2022 3:52 AM [facility] BUN/Creatinine Ratio 19 7 - 23 01/28/2022 3:52 AM [facility] Osmolality Calculated 300 270 - 300 mOsm/kg 01/28/2022 3:52 AM [facility] eGFR by CKD-EPI >90 >=90 mL/min/1.7 3 m2 01/28/2022 3:52 AM [facility] Blood BLOOD SPECIMEN / Unknown Lab Venipuncture / Unknown 01/28/2022 12:04 AM CDT 01/28/2022 3:25 AM CDT Bandar Vaca PA-C LAB - CHEMISTRY O RDERABLES [facility] [address] [place] [phone], [facility] [phone] * SARS-COV-2 (COVID-19)+INFLU A+B PCR RAPID (01/27/2022 8:21 PM CDT) COVID-19 PCR Not detected Not detected 01/28/20 9:08 PM CDT [facility] Influenza A Rapid LOGAN Not Detected Not Detected 01/27/2022 9:08 PM CDT [facility] Influenza B LOGAN Rapid Not Detected Not Detected 01/27/2022 9:08 PM CDT [facility] Microbiology SPECIMEN FROM NASOPHARYNGEAL STRUCTURE / Unknown Collection / Unknown 01/27/2022 8:21 PM CDT 01/27/2022 8:29 PM CDT Narrative [facility] - 01/27/2022 9:08 PM CDT Influenza assay performed by Nucleic Acid Amplification. Results do not exclude the possibility of a mixed viral infection. NOTE: ??Detecting and identifying specific viral nucleic acids from individuals exhibiting signs and symptoms of respiratory infection aids in the diagnosis of respiratory infection, if used in conjunction with other clinical and laboratory findings. The results of this test should not be used as the sole basis for diagnosis, treatment, or patient management decisions. This nucleic acid amplification assay performance was validated by [facility]. This test has been authorized by the Food and Drug administration (FDA)under an Emergency??Use Authorization (EUA). This test has been validated in accordance with the FDA's guidance document Policy for Diagnostic Testing in Laboratories Certified to perform High Complexity Testing under CLIA prior to Emergency Use Authorization for Coronavirus Disease-2019 during the Public Health Emergency issued on July 03, 2019. FDA independent review of this validation is pending. This test is only authorized for the duration of time the declaration that circumstances exist justifying the authorization of emergency use of in vitro diagnostic tests for detection of SARS-CoV-2 virus and/or diagnosis of COVID-19 infection under section 564(b)(1) of the Act, 21 U.S.C 360bbb-3 (b)(1), unless the authorization is terminated or revoked sooner. Fact Sheets for this EUA assay are available upon request. Bandar Vaca PA-C LAB - MICROBIOLOG Y ORDERABLES [address] [address], [facility] [phone] * XR CHEST PA AND LATERAL (01/27/2022 4:58 PM CDT) Only the most recent of6 resultswithin the time period is included. Anatomical Region Laterality Modality Chest Radiographic Dana ging 01/27/2022 4:54 PM CDT Narrative 01/27/2022 5:14 PM CDT PROCEDURE: ??XR CHEST 2VW, DATE/TIME OF EXAM: ??01/27/2022 4:42 PM, LOCATION [facility] INDICATION: R05.9: Cough ADDITIONAL CLINICAL INFORMATION: Ordering Provider Reason For Exam: ??r/o pneumonia COMPARISON: None. FINDINGS/IMPRESSION: Bilateral perihilar opacities may represent atypical infection, less likely pulmonary edema. There is no pleural effusion or pneumothorax. The cardiomediastinal silhouette is normal. The visible bony thorax is intact. Report dictated by Anatoliy Paul MD (anesthesia resident). Guillermo Mckeon MD have personally reviewed and interpreted this examination/study. > Interpreting Provider: Guillermo Laura MD on 01/27/2022 5:14 PM Procedure Note Guillermo Laura MD - 01/27/2022 PROCEDURE: XR CHEST 2VW, DATE/TIME OF EXAM: 01/27/2022 4:42 PM, LOCATION [facility] INDICATION: R05.9: Cough ADDITIONAL CLINICAL INFORMATION: Ordering Provider Reason For Exam: r/o pneumonia COMPARISON: None. FINDINGS/IMPRESSION: Bilateral perihilar opacities may represent atypical infection, lesslikely pulmonary edema. There is no pleural effusion or pneumothorax. The cardiomediastinal silhouette is normal. The visible bony thorax isintact. Report dictated by Anatoliy Paul MD (anesthesia resident). Guillermo Mckeon MD have personally reviewed and interpreted this examination/study. > Interpreting Provider: Giullermo Laura MD on 01/27/2022 5:14 PM Lelo Fenton [employer] [facility] I MAGING ORDERABLES * (ABNORMAL) BLOOD GASES CHASE + COOX PANEL (01/27/2022 4:13 PM CDT) pH Venous 7.48(H) 7.32 - 7.42 pH 01/27/2022 4:26 PM [facility] pO2 Venous 55(H) 35 - 40 mmHg 01/27/2022 4:26 PM [facility] pCO2 Venous 31(L) 40 - 50 mmHg 01/27/2022 4:26 PM [facility] HCO3 Venous 23.1 20 - 30 mmol/L 01/27/2022 4:26 PM [facility] Base Excess Venous 0.5 -2.0 - 2.0 mmol/L 01/27/2022 4:26 PM [facility] Oxyhemoglobin Venous 86.1 % 01/04 4:26 PM [facility] Deoxyhemoglobin (HHB) Venous % 11.0 % 01/27/2022 4:26 PM [facility] Methemoglobin <0.8 0.0 - 2.0 % 01/27/2022 4:26 PM [facility] Carboxyhemoglobin 2.3(H) 0.0 - 2.0 % 2021 4:26 PM [facility] O2 Content Venous 18.1 Interpret within clinical context mg/dL 01/27/2022 4:26 PM [facility] Hemoglobin by COOX 15.0 12.0 - 15.6 g/dL 01/27/2022 4:26 PM [facility] O2 Saturation Venous 89 >=70 % 01/04 4:26 PM [facility] FI O2 Mixed Venous 28.0 % 2021 4:26 PM [facility] Blood BLOOD SPECIMEN / Unknown Venipuncture / Unknown 01/27/2022 4:13 PM CDT 01/27/2022 4:17 PM T [facility] - 01/27/2022 4:26 PM [facility] Carboxyhemoglobin Normal Concentration: Non-smokers: 0-2%; Smokers: 0-9%; Toxic: >20% Marta Callahan PA-C LAB - BLOOD GASES ORDERABLES [facility] [address] [place] [id number], [facility] [phone] * (ABNORMAL) COMPREHENSIVE METABOLIC PANEL (01/27/2022 4:13 PM CDT) Only the most recent of285 resultswithin the time period is included. BUN 14 7 - 26 mg/dL 01/27/2022 4:49 PM [facility] Creatinine 0.60 0.56 - 0.96 mg/dL 01/27/2022 4:49 PM [facility] Sodium 140 136 - 145 mmol/L 01/27/2022 4:49 PM [facility] Potassium 3.1(L) 3.5 - 4.5 mmol/L 01/27/2022 4:49 PM [facility] Chloride 104 98 - 107 mmol/L 01/27/2022 4:49 PM [facility] CO2 22 22 - 29 mmol/L 01/27/2022 4:49 PM [facility] Glucose 291(H) 70 - 115 mg/dL 01/27/2022 4:49 PM [facility] Calcium 8.9 8.4 - 10.2 mg/dL 01/27/2022 4:49 PM [facility] Protein Total 6.6 6.0 - 8.3 g/dL 01/27/2022 4:49 PM [facility] Albumin 3.3(L) 3.4 - 5.0 g/dL 01/27/2022 4:49 PM [facility] Bilirubin Total 0.4 0.2 - 1.2 mg/dL 01/27/2022 4:49 PM [facility] Alkaline Phosphatase 81 40 - 150 U/L 01/27/2022 4:49 PM [facility] ALT 23 5 - 55 U/L 01/27/2022 4:49 PM [facility] AST 17 5 - 34 U/L 01/27/2022 4:49 PM [facility] Anion Gap 17 8 - 18 01/27/2022 4:49 PM [facility] BUN/Creatinine Ratio 23 7 - 23 01/27/2022 4:49 PM [facility] Osmolality Calculated 301(H) 270 - 300 mOsm/kg 01/27/2022 4:49 PM [facility] Albumin/Globulin Ratio 1.0(L) 1.1 - 2.3 01/27/2022 4:49 PM [facility] eGFR by CKD-EPI >90 >=90 mL/min/1.7 3 m2 01/27/2022 4:49 PM [facility] Blood BLOOD SPECIMEN / Unknown Venipuncture / Unknown 01/27/2022 4:13 PM CDT 01/27/2022 4:20 PM T Marta Callahan PA-C LAB - CHEMISTRY OR DERABLES [facility] [address] [place] [address], [facility] [phone] * HCG BETA BLOOD QUANTITATIVE (01/27/2022 4:13 PM CDT) Only the most recent of4 resultswithin the time period is included. [facility] Beta-hCG Total Quantitative 4 mIU/mL 01/27/2022 5:07 PM CDT [facility] Comment: This assay is cleared for use in the early detection of only. It is not approved for any other uses such as tumor marker screening, tumor marker monitoring, etc. and should not be used for any other purposes. HCG Numeric Result Interpretation: ? Non- Females: ? < 5 mIU/mL ? Post-Menopausal Females: ??< 7 mIU/mL ? Blood BLOOD SPECIMEN / Unknown Venipuncture / Unknown 01/27/2022 4:13 PM CDT 01/27/2022 4:20 PM CDT Marta Callahan PA-C LAB - CHEMISTRY OR DERABLES [facility] [address] [place] [address], [facility] [phone] * EKG 12-LEAD (01/27/2022 4:09 PM CDT) Only the most recent of7 resultswithin the time period is included. [facility] Ventricular Rate 96 BPM [facility]USE Atrial Rate 96 BPM [facility] MUSE P-R Interval 120 ms [facility] MUSE QRS Duration ms 82 ms [facility] MUSE Q-T Interval ms 344 ms [facility] MUSE QTC Calculation (Bezet) 434 ms [facility] MUSE Calculated P Timpson 37 degrees [facility] MUSE Calculated R Timpson 20 degrees [facility] MUSE Calculated T Timpson 14 degrees [facility] MUSE Interpretation EKG NORMAL SINUS RHYTHM LOW VOLTAGE QRS BORDERLINE ECG WHEN COMPARED WITH ECG OF 15-NOV-2015 12:26, NO SIGNIFICANT CHANGE WAS FOUND Confirmed by Keke COMBS, Serenity ([id number]) on 01/29/2022 9:35:53 PM [facility] MUSE 01/27/2022 4:09 PM CDT 01/29/2022 9:35 PM CDT Marta Callahan PA-C ECG ORDERABLES [facility] MUSE * CHIMERISM CD33/CD66B CELL ANALYSIS (11/17/2020 2:58 PM CDT) Donor 1 100% 11/22/2020 11:10 AM CDT [facility] ([facility]) Donor 2 No Donor 11/22/2020 11:10 AM CDT [facility] ([facility]) Donor 3 No Donor 11/22/2020 11:10 AM CDT [facility] ([facility]) Donor 4 No Donor 11/22/2020 11:10 AM CDT [facility] ([facility]) Comment: Percent Donor: ??100% The post-transplant analysis of the CD33/CD66b cells from CRISTINA PACHECO (VINCENT) revealed 100% donor cells and 0% patient cells. The sensitivity of this test is 5% or less for a typical specimen. Average purity of sorted cells is at least 90%. Shawanda Anne, Ph.D. *This test was performed using a PCR / STR method. ??The following loci were evaluated: P5C0433, Q2L6280, D21S11, D18S51, C8T257, R49V786, X05U710, TPOX, Penta E This test was developed and its performance characteristics were determined by [facility]. ??It has not been cleared or approved by the Food and Drug administration. Dr. Edi Vo, Ph.D., Stock Associate [place] ID Number [id number] BLOOD SPECIMEN / Unknown 11/17/2020 2:58 PM CDT 11/17/2020 3:04 PM CDT Narrative [facility] ([facility]) - 11/22/2020 11:10 AM CDT Performed at: ??[facility] [place], [place] ??[id number] Student Support Services Director: Edi Vo PhD, Phone: ??[phone] Socorro Galdamez [facility] LAB - PATHOLOGY/CY TOLOGY ORDERABLES [facility] ([facility]) [address] [place] [address], [facility] * CHIMERISM CD3 CELL ANALYSIS (11/17/2020 2:58 PM CDT) Donor 1 Chimerism CD3 Cells Analysis 100% 11/22/2020 1:08 PM CDT [facility] ([facility]) Donor 2 Chimerism CD3 Cells Analysis No Donor 11/22/2020 1:08 PM CDT [facility] ([facility]) Donor 3 Chimerism CD3 Cells Analysis No Donor 11/22/2020 1:08 PM CDT [facility] ([facility]) Donor 4 Chimerism CD3 Cells Analysis No Donor 11/22/2020 1:08 PM CDT [facility] ([facility]) Comment: Percent Donor: ??100% The post-transplant analysis of the CD3 cells from CRISTINA PACHECO (MARC) revealed 100% donor cells and 0% patient cells. The sensitivity of this test is 5% or less for a typical specimen. Average purity of sorted cells is at least 90%. Shawanda Anne, Ph.D. *This test was performed using a PCR / STR method. ??The following loci were evaluated: X6E0625, O3U2191, D21S11, D18S51, C4T312, H98N357, V40Z819, TPOX, Penta E This test was developed and its performance characteristics were determined by [facility]. ??It has not been cleared or approved by the Food and Drug administration. Dr. Edi Vo, Ph.D., Stock Associate [facility] ID Number [id number] BLOOD SPECIMEN / Unknown 11/17/2020 2:58 PM CDT 11/17/2020 3:04 PM CDT Narrative [facility] ([facility]) - 11/22/2020 1:08 PM CDT Performed at: ??01 - [facility] [place], [place] ??[id number] Student Support Services Director: Edi Vo PhD, Phone: ??[phone] Socorro Galdamez APRN-[employer]ITAL [employer] [facility] LAB - PATHOLOGY/CY TOLOGY ORDERABLES [facility]) [address] [place] [address], [facility] * MAMMO BILAT SCREENING (07/17/2020 8:20 AM [...] breast. Lelo Lopez MD MAMMO ORDERABLES * SUSCEPTIBILITY YEAST (07/04/2020 12:38 PM FINANCIAL DIRECTOR) Source [facility]ITAL [facility] Organism ID TRE ALBICANS [facility] Amphotericin B 0.500 mcg/mL [facility] Anidulafungin 0.030 S mcg/mL [facility] Caspofungin 0.015 S mcg/mL [facility] Fluconazole 0.500 S mcg/mL [facility] 5-Flucytosine 0.120 mcg/mL [facility] Itraconazole 0.120 mcg/mL [facility] Micafungin <=0.008 S mcg/mL [facility] Posaconazole 0.030 mcg/mL [facility] Voriconazole 0.030 S mcg/mL [facility] Comment See below [facility] Comment: Drug concentrations are expressed in mcg/mL. S = Susceptible S-DD = Susceptible-Dose Dependent I = Intermediate R = Resistant Susceptible Dose Dependent (S-DD): susceptibility is dependent on achieving maximum blood levels. HOANG interpretations are based on recently published CLSI guidelines. Only the HOANG value is reported when CLSI guidelines are not available. This test was performed using a kit that has not been cleared or approved by the FDA. The analytical performance characteristics of this test have been determined by [employer] [facility], [employer]. This test not be used for diagnosis without confirmation by other medically established means. Test Performed at: [facility] [address] [place] [address] ??[phone] Prieto SINGLETON 07/04/2020 12:3 8 PM FINANCIAL DIRECTOR 07/04/2020 12:39 PM FINANCIAL DIRECTOR Nadia Robbins MD LAB - MICROBIOLOGY ORDERABLES [facility] [address] [place] [address] * (ABNORMAL) CULTURE YEAST WITH DIRECT FLUORESCENT TANA (07/04/2020 10:14 AM FINANCIAL DIRECTOR) Smear (A) [facility] Comment: ??CULTURE, YEAST, W/DIRECT FLUORESCENT TANA ?Micro Number: ?[id number] ??Test Status: ? Final ??Specimen Source: ?? GENITAL ??Specimen Quality: ??Adequate ??Smear: ? Few Budding yeast seen ??Result: ?Tre albicans ? Isolate forwarded to [facility] [employer] for Susceptibility Testing. Test Performed at: [facility] ??[id number] RANJAN GOLDSTEIN MD Microbiology SPECIMEN FROM GENITAL SYSTEM / Unknown 07/04/2020 10:14 AM FINANCIAL DIRECTOR 07/04/2020 12:39 PM FINANCIAL DIRECTOR Nadia Robbins MD LAB - MICROBIOLOGY ORDERABLES [address] [address] * PH FLUID - POCT (AMB) U (07/04/2020) pH Vaginal 3.5 Fluid ENTIRE VAGINA / Unknown 07/04/2020 Nadia Robbins MD LAB - POINT OF CAR E ORDERABLES * WET PREP - POINT OF CARE (AMB) U (07/04/2020) pH Wet Prep 3.4 Yeast Wet Prep buds Trichomonas Wet Prep None Bacteria Wet Prep neg Whiff Test neg BODY FLUID SPECIMEN / Unknown 07/04/2020 Nadia Robbins MD LAB - POINT OF CAR E ORDERABLES * FUNGUS TANA - POINT OF CARE (AMB) U (07/04/2020) TANA Prep Yes Comment:hyphae with buds Fluid BODY FLUID SPECIMEN / Unknown 07/04/2020 Nadia Robbins MD LAB - POINT OF CAR E ORDERABLES * TSH (06/27/2020 10:16 AM FINANCIAL DIRECTOR) Only the most recent of9 resultswithin the time period is included. TSH 2.236 0.350 - 4.940 uIU/mL 06/27/2020 11:19 AM FINANCIAL DIRECTOR [facility] Blood BLOOD SPECIMEN / Unknown Venipuncture / Unknown 06/27/2020 10:16 AM FINANCIAL DIRECTOR 06/27/2020 10:36 AM FINANCIAL DIRECTOR Fawad Ruffin MD LAB - CHEMISTRY OR DERABLES Performing Organization Address [facility] Co de Phone Number [address] [address], [facility] [phone] * T4 FREE (06/27/2020 10:16 AM FINANCIAL DIRECTOR) Only the most recent of7 resultswithin the time period is included. Pathologist [facility] T4 Free 0.8 0.7 - 1.5 ng/dL 06/27/2020 11:19 AM FINANCIAL DIRECTOR [facility] Blood BLOOD SPECIMEN / Unknown Venipuncture / Unknown 06/27/2020 10:16 AM FINANCIAL DIRECTOR 06/27/2020 10:36 AM FINANCIAL DIRECTOR Fawad Ruffin MD LAB - CHEMISTRY OR DERABLES Performing Organization Address [facility] Co de Phone Number [address] [address], [facility] [phone] * IR CENTRAL LINE REMOVAL (01/31/2020 11:28 AM CDT) Only the most recent of2 resultswithin the time period is included. Anatomical Region Laterality Modality X-Ray Angiograph y 02/01/2020 4:33 PM CDT Narrative 02/01/2020 4:34 PM CDT This is an Interventional Nephrology procedure performed on 01/31/2020 Diagnosis: AML in remission [employer] Student Coordinator: Isi Goldstein M.D. Attending: Isi Goldstein M.D Emt I/85: Emile. Procedure: Removal of a tunneled catheter with subcutaneous port Indication: Port no longer needed Procedure details: After informed consent, the patient was taken to the angiography suite and placed on the fluoroscopy table. A client account specialist X-ray showed the port with the attached catheter in place. The left chest was cleansed with chlorhexidine and draped in a sterile fashion. Local anesthetic was used to infiltrate the skin and subcutaneous tissue over the port. An incision was made over the scar of ??the port placement incision. Using a combination of blunt dissection and electric Bovie, the port was freed from scar tissue and removed from the subcutaneous pocket. A 3-0 pursestring Vicryl suture was placed around the catheter which was pulled out as the suture was tied to secure the catheter tunnel. The port pocket was closed with 3-0 Vicryl subcutaneous sutures and the incision skin with a 4-0 Vicryl subcuticular running suture line. A dressing was applied. Moderate sedation on this adult patient was ordered by me, administered intravenously in my presence, and monitored by the procedure nurse as an independent trained observer who was present throughout the procedure. The following parameters were monitored: oxygen saturation, heart rate, blood pressure, and response to care. Intra-service sedation start time was 1120 and end time was 1150during which I was present. Total physician intra-service sedation time was 30 minutes. For details on pre-moderate sedation and post-moderate sedation patient evaluation, please review the evaluation forms in [facility]. For details on monitored clinical parameters during the intra-service sedation time, please review the procedure nurse documentation in [facility]. The port and catheter were removed in their entirety and a post procedure client account specialist X-ray confirmed removal. The patient tolerated the procedure. I was present throughout the procedure. This report was electronically signed by LEONIDAS GOLDSTEIN MD ??on 02/01/2020 4:34 PM . Procedure Note Leonidas Goldstein MD - 02/01/2020 This is an Interventional Nephrology procedure performed on 01/31/2020 Diagnosis: AML in remission Foreign [employer] Student Coordinator: Isi Goldstein M.D. Attending: Isi Goldstein M.D Emt I/85: Emile. Procedure: Removal of a tunneled catheter with subcutaneous port Indication: Port no longer needed Procedure details: After informed consent, the patient was taken to the angiography suiteand placed on the fluoroscopy table. A client account specialist X-ray showed the port with the attached catheter in place. The left chest was cleansed with chlorhexidine and draped in a sterile fashion. Local anesthetic was used to infiltrate the skin andsubcutaneous tissue over the port. An incision was made over the scar of the port placement incision. Using a combination of blunt dissection and electric Bovie, the port was freed from scar tissue and removed from the subcutaneous pocket. A 3-0 pursestring Vicryl suture was placed around the catheter which waspulled out as the suture was tied to secure the catheter tunnel. The port pocket was closed with 3-0 Vicryl subcutaneous sutures and the incision skin with a 4-0 Vicryl subcuticular running suture line. A dressing was applied. Moderate sedation on this adult patient was ordered by me, administered intravenously in my presence, and monitored by the procedure nurse as an independent trained observer who was present throughout the procedure.The following parameters were monitored: oxygen saturation, heart rate,blood pressure, and response to care. Intra-service sedation start time [id number] and end time was 1150during which I was present. Total physician intra-service sedation time was 30 minutes. For details on pre-moderate sedation and post-moderate sedation patient evaluation, please reviewthe evaluation forms in [facility]. For details on monitored clinical parameters during the intra-service sedation time, please review the procedurenurse documentation in [facility]. The port and catheter were removed in their entirety and a postprocedure client account specialist X-ray confirmed removal. The patient tolerated the procedure. I was present throughout the procedure. This report was electronically signed by LEONIDAS GOLDSTEIN MD on 02/01/2020 4:34 PM . Socorro ORO[facility]CO IR ORDERABLES * HCG URINE QUALITATIVE - POCT (IP) [facility] (01/31/2020 10:25 AM CDT) Only the most recent of3 resultswithin the time period is included. Test Urine Negative Negative [facility] POCT TESTING Urine URINE / Unknown 01/31/2020 1 0:25 AM CDT Socorro OROZCO LAB - POINT OF CAR E ORDERABLES [facility] POCT TESTING [address] [place] [address], [facility] [phone] * PROTEIN URINE RANDOM QUANTITATIVE (06/29/2019 12:50 PM FINANCIAL DIRECTOR) Only the most recent of2 resultswithin the time period is included. Protein Urine 17 Not Established mg/dL 06/29/2019 2:06 PM FINANCIAL DIRECTOR [facility] Urine URINE SPECIMEN OBTAINED BY CLEAN CATCH PROCEDURE / Unknown Collection / Unknown 06/29/2019 12:50 PM FINANCIAL DIRECTOR 06/29/2019 1:25 PM FINANCIAL DIRECTOR Rosibel Griffin ERNESTO LAB - URINE CHEMIS TRY ORDERABLES [facility] [address] [place] [address], [facility] [phone] * ECHO COMPLETE (06/29/2019 11:29 AM FINANCIAL DIRECTOR) Only the most recent of2 resultswithin the time period is included. Anatomical Region Laterality Modality Chest Echo 06/29/2019 10:5 5 AM FINANCIAL DIRECTOR Narrative Procedure Note Serenity Davies MD - 06/30/2019 Tarsha Mcdonaldgypsy [facility] ECHOCARDIOGRAPHY RADIANT * COMPLETE PFT (06/29/2019 10:00 AM FINANCIAL DIRECTOR) Impressions Donovan Ybarra MD - 06/29/2019 10:00 AM FINANCIAL DIRECTOR [facility] DEPARTMENT OF PULMONARY, CRITICAL CARE, AND SLEEP MEDICINE PULMONARY FUNCTION TESTS Cristina Pacheco 33 year old BMI 33.3 06/29/2019 INTERPRETATION Please see technologist's comments mentioned above. SPIROMETRY: ??FEV1/FVC ratio is Normal . FEV1 is Decreased prior to bronchodilator then corrects to normal Forced vital capacity is Decreased prior to bronchodilator then corrects to normal There is no significant response to bronchodilator administration. Inspection of the patient's flow-volume loops shows normal configuration of the inspiratory and expiratory limbs. LUNG VOLUMES: Lung volumes by body plethysmography are within normal limits. DLCO: Diffusing capacity adjusted for Hb is within normal limits. AIRWAY RESISTANCE: The airway resistance and the specific conductance are normal. IMPRESSION: 1. Nonspecific ventilatory limitation corrects to normal PFT after administration of bronchodilator 2. No significant response to bronchodilators by ATS criteria, this does not preclude use of inhaled bronchodilators if clinically indicated. Compared to 08/01/2016, no significant change in FEV1, FVC, TLC or DLCO. Elias Chvaez MD (Fellow) Division of Pulmonary, Critical Care, & Sleep Medicine [facility] I have reviewed this study and agree with the interpretation by the Creative Services Writer. Donovan Ybarra M.D. Ssn/Ssbn Assistant Navigator of Internal Medicine Division of Pulmonary, Critical Care and Sleep Medicine [facility] Narrative Donovan Ybarra MD - 06/29/2019 10:00 AM FINANCIAL DIRECTOR Elias Chavez MD ? 06/29/2019 ??3:30 PM Socorro Galdamez [employer] [facility] RESPIRATORY THERAP Y ORDERABLES * VITAMIN D 25-HYDROXY (05/04/2019 9:41 AM FINANCIAL DIRECTOR) Only the most recent of7 resultswithin the time period is included. [facility] Vitamin D, 25 Hydroxy 42.4 See comment: ng/mL 05/04/2019 10:30 AM FINANCIAL DIRECTOR [facility] Comment: The recommendations for 25-Hydroxy Vitamin D clinical decision points are as follows: ? Deficient: ? <20.0 ng/mL ? Insufficient: ??20.0 - 29.9 ng/mL ? Sufficient: ? > or =30.0 ng/mL If the 25-Hydroxy Vitamin D results are inconsitent with clinical evidence, it is recommended that follow-up testing using a method such as LC/MS/MS be performed to confirm the result. Reference: ?The Endocrine Society Clinical Practice Guidelines. 2011 ? Blood BLOOD SPECIMEN / Unknown Venipuncture / Unknown 05/04/2019 9:41 AM FINANCIAL DIRECTOR 05/04/2019 9:47 AM FINANCIAL DIRECTOR Tarsha Cha [employer] LAB - CHEMISTRY O RDERABLES [facility] [address] [place] [address], [facility] [phone] * (ABNORMAL) URINALYSIS REFLEX TO MICROSCOPIC NO CULTURE (08/11/2018 2:00 PM [facility]) Only the most recent of8 resultswithin the time period is included. Color UA Yellow Straw, Yellow, Colorless 08/11/2018 4:26 PM [facility] Clarity UA Cloudy(A) Clear, t Cloudy 08/11/2018 4:26 PM [facility] Specific [place] UA 1.028 1.005 - 1.030 08/11/2018 4:26 PM [facility] pH UA 5.0 5.0 - 8.0 pH 08/11/2018 4:26 PM [facility] Protein UA Negative Negative mg/dL 08/11/2018 4:26 PM [facility] Glucose UA 1+(A) Negative mg/dL 08/11/2018 4:26 PM [facility] Ketone UA Negative Negative mg/dL 08/11/2018 4:26 PM [facility] Bilirubin UA Negative Negative mg/dL 08/11/2018 4:26 PM [facility] Blood UA Negative Negative 08/11/2018 4:26 PM [facility] Nitrite UA Negative Negative 08/11/2018 4:26 PM [facility] Leukocyte Esterase 1+(A) Negative 08/11/2018 4:26 PM [facility] Urobilinogen UA Negative Negative mg/dL 08/11/2018 4:26 PM [facility] RBC UA 3-5 None Seen, 0-2, 3-5 /HPF 08/11/2018 4:26 PM [facility] WBC UA 11-20(A) None Seen, 0-5 /HPF 08/11/2018 4:26 PM [facility] Bacteria UA 2+(A) None, Trace /HPF 08/11/2018 4:26 PM [facility] Squamous Epithelial Cells UA 11-20(A) None Seen, 0-2 /HPF 08/11/2018 4:26 PM [facility] Transitional Epithelial Cells UA 0-2 None Seen, 0-2 /HPF 08/11/2018 4:26 PM CDT [facility] Mucus UA 1+ None, 1+ /LPF 08/11/2018 4:26 PM CDT [facility] Urine URINE SPECIMEN OBTAINED BY CLEAN CATCH PROCEDURE / Unknown Collection / Unknown 08/11/2018 2:00 PM CDT 08/11/2018 4:08 PM CDT Theodore Oswald PA-C LAB - URINALYSIS ORDERABLES [facility] [address] [place] [address] * (08/11/2018 1:59 PM CDT) Only the most recent of3 resultswithin the time period is included. 44.8 mIU/mL 08/12/2018 8:42 AM CDT [facility] ([facility]) Comment: ?Adult Female: ?Follicular phase ?2.4 - ??12.6 ?Ovulation phase ?14.0 - ??95.6 ?Luteal phase ?1.0 - ??11.4 ?Postmenopausal ?7.7 - ??58.5 Blood BLOOD SPECIMEN / Unknown Venipuncture / Unknown 08/11/2018 1:59 PM CDT 08/11/2018 2:18 PM CDT Narrative [facility] ([facility]) - 08/12/2018 8:42 AM CDT Performed at: ??01 - [facility] [address], [place], [place] ??[id number] Student Support Services Director: Patrice Lopez PhD, Phone: ??[phone] Theodore Oswald PA-C LAB - CHEMISTRY ORDERABLES Performing Organization Address [facility] de Phone Number [facility] ([facility]) [address] [place] [address], [place] * FSH (08/11/2018 1:59 PM CDT) Only the most recent of3 resultswithin the time period is included. FSH 66.4 mIU/mL 08/12/2018 7:18 AM CDT [facility] ([facility]) Comment: ?Adult Female: ?Follicular phase ?3.5 - ??12.5 ?Ovulation phase ? 4.7 - ??21.5 ?Luteal phase ?1.7 - ?? 7.7 ?Postmenopausal ? 25.8 - 134.8 Blood BLOOD SPECIMEN / Unknown Venipuncture / Unknown 08/11/2018 1:59 PM CDT 08/11/2018 2:18 PM CDT Narrative [facility] ([facility]) - 08/12/2018 7:18 AM CDT Performed at: ??01 - [facility] [address] [place], [place] ??[id number] Student Support Services Director: Patrice Lopez PhD, Phone: ??[phone] Theodore Oswald PA-C LAB - CHEMISTRY ORDERABLES Performing Organization Address City/[facility] Co de Phone Number [facility] ([facility]) [address] [place] [address], [facility] * ESTRADIOL (08/11/2018 1:59 PM CDT) Only the most recent of3 resultswithin the time period is included. Estradiol <5.0 pg/mL 08/12/2018 7:18 AM CDT [facility] ([facility]) Comment: ?Adult Female: ?Follicular phase ?? 12.5 - ?? 166.0 ?Ovulation phase ?85.8 - ?? 498.0 ?Luteal phase ? 43.8 - ?? 211.0 ?Postmenopausal ? <6.0 - ?54.7 ?1st trimester ? 215.0 - >4300.0 ?Girls (1-10 years) ?6.0 - ?27.0 Alessandro ECLIA methodology Blood BLOOD SPECIMEN / Unknown Venipuncture / Unknown 08/11/2018 1:59 PM CDT 08/11/2018 2:18 PM CDT Narrative [facility] ([facility]) - 08/12/2018 7:18 AM CDT Performed at: ??01 - [facility] [place] [address] [place], [place] ??[id number] Student Support Services Director: Patrice Lopez PhD, Phone: ??[phone] Theodore Oswald PA-C LAB - CHEMISTRY ORDERABLES [facility] ([facility]) [address] [place] [address], [place] * DEXA BONE DENSITY AXIAL SKELETON (08/11/2018 1:28 PM CDT) Only the most recent of4 resultswithin the time period is included. Anatomical Region Laterality Modality Mammography 08/11/2018 2:30 PM CDT Narrative 08/11/2018 2:32 PM CDT Examination: Dual energy x-ray absorptiometry of the lumbar spine and hip. 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 Presented today for osteoporosis screening Findings: Detailed data from the exam is sent separately to the ordering physician and is also available on Primordial, the Radiology Department's computerized picture archive system [...] ordering physician and is also available on Primordial, the Radiology Department's computerized picture archive system [...] Theodore Oswald PA-C DEXA ORDERABLES * (ABNORMAL) LDL CHOLESTEROL DIRECT (12/23/2017 2:11 PM CDT) LDL Direct 123(H) <100 mg/dL 12/23/2017 3:14 PM CDT [facility] Comment: ATP III Classification of LDL Cholesterol: ?<100 mg/dL: ??Optimal ? 100 - 129 mg/dL: ??Near Optimal/Above Optimal ? 130 - 159 mg/dL: ??Borderline High ? 160 - 189 mg/dL: ??High ?>190 mg/dL: ??Very High Blood BLOOD SPECIMEN / Unknown Venipuncture / Unknown 12/23/2017 2:11 PM CDT 12/23/2017 2:11 PM CDT Rosibel Griffin [employer] LAB - CHEMISTRY OR DERABLES Performing Organization Address City/State/[facility] Co de Phone Number [address] [phone] * (ABNORMAL) LIPID PROFILE (12/23/2017 2:11 PM CDT) Cholesterol Total 285(H) <200 mg/dL 12/23/2017 2:58 PM CDT [facility] HDL 41 >40 mg/dL 12/23/2017 2:58 PM CDT [facility] Comment: ATP III Classification of HDL Cholesterol: ? <40 mg/dL: ??Considered a major risk factor. ? >60 mg/dL: ??Considered a negative risk factor. ? LDL Calculated <100 mg/dL 12/23/2017 2:58 PM CDT [facility] Comment: Calculation of LDL value was not performed because triglyceride concentrations greater than 400 mg/dL render the calculated value invalid. For this reason, the LDL Direct assay for measurement of LDL Cholesterol has been performed (per laboratory protocol). Triglycerides 714(H) <150 mg/dL 12/23/2017 2:58 PM CDT [facility] Comment: ATP III Classification of Triglycerides: ?<150 mg/dL: ??Normal ? 150 - 199 mg/dL: ??Borderline High ? 200 - 400 mg/dL: ??High ?>500 mg/dL: ??Very High Blood BLOOD SPECIMEN / Unknown Venipuncture / Unknown 12/23/2017 2:11 PM CDT 12/23/2017 2:11 PM CDT Rosibel [facility] LAB - CHEMISTRY OR DERABLES Performing Organization Address City/State/[facility] Co de Phone Number [address] [phone] * RESPIRATORY PATHOGEN PANEL BY PCR (09/23/2017 1:43 PM CDT) Only the most recent of10 resultswithin the time period is included. Adenovirus PCR Not detected Not detected, Invalid, Indeterminate 09/23/2017 8:10 PM CDT [facility] Human Metapneumovirus PCR Not detected Not detected, Invalid, Indeterminate 09/23/2017 8:10 PM CDT [facility] Human Rhinovirus/Entero virus PCR Not detected Not detected, Invalid, Indeterminate 09/23/2017 8:10 PM CDT [facility] Influenza A Non Subtyped PCR Not detected Not detected, Invalid, Indeterminate 09/23/2017 8:10 PM CDT [facility] Influenza A H1 PCR Not detected Not detected, Invalid, Indeterminate 09/23/2017 8:10 PM CDT [facility] Influenza A H3 PCR Not detected Not detected, Invalid, Indeterminate 09/23/2017 8:10 PM CDT [facility] Influenza A H1 2009 PCR Not detected Not detected, Invalid, Indeterminate 09/23/2017 8:10 PM CDT [facility] Influenza B PCR Not detected Not detected, Invalid, Indeterminate 09/23/2017 8:10 PM CDT [facility] Mycoplasma pneumoniae PCR Not detected Not detected, Invalid, Indeterminate 09/23/2017 8:10 PM CDT [facility] Parainfluenza Virus 1 PCR Not detected Not detected, Invalid, Indeterminate 09/23/2017 8:10 PM CDT [facility] Parainfluenza Virus 2 PCR Not detected Not detected, Invalid, Indeterminate 09/23/2017 8:10 PM CDT [facility] Parainfluenza Virus 3 PCR Not detected Not detected, Invalid, Indeterminate 09/23/2017 8:10 PM CDT [facility] Parainfluenza Virus 4 PCR Not detected Not detected, Invalid, Indeterminate 09/23/2017 8:10 PM CDT [facility] Respiratory Syncytial Virus PCR Not detected Not detected, Invalid, Indeterminate 09/23/2017 8:10 PM CDT [facility] Bordetella pertussis PCR Not detected Not detected, Invalid 09/23/2017 8:10 PM CDT [facility] Coronavirus PCR Not detected Not detected, Invalid, Indeterminate 09/23/2017 8:10 PM CDT [facility] Microbiology NASOPHARYNGEAL SWAB / Unknown Collection / Unknown 09/23/2017 1:43 PM CDT 09/23/2017 1:59 PM CDT Narrative [facility] - 09/23/2017 8:10 PM CDT Coronavirus PCR detects the following coronaviruses: 229E, HKU1, NL63, OC43. Lelo Becerra [employer] LAB - MICROBIOL OGY ORDERABLES [facility] [address] [place] [address], [facility] [phone] * (ABNORMAL) LDH BLOOD (09/23/2017 1:43 PM CDT) Only the most recent of60 resultswithin the time period is included. LDH Total 289(H) 125 - 243 Units/L 09/23/2017 2:27 PM CDT [facility] Blood BLOOD SPECIMEN / Unknown Venipuncture / Unknown 09/23/2017 1:43 PM CDT 09/23/2017 1:58 PM CDT Lelo [facility] LAB - CHEMISTRY ORDERABLES [address] [phone] * VARICELLA ZOSTER ANTIBODY IGG (11/19/2016 2:49 PM CDT) Only the most recent of3 resultswithin the time period is included. Varicella zoster Virus Antibody IgG 392 Immune >165 index [facility] ([facility]) Comment: ? Negative ?<135 ? Equivocal ?135 - 165 ? Positive ?>165 A positive result generally indicates exposure to the pathogen or administration of specific immunoglobulins, but it is not indication of active infection or stage of disease. Blood specimen (specimen) BLOOD SPECIMEN / Unknown 11/19/2016 2:49 PM CDT 11/19/2016 2:58 PM CDT Narrative [facility] ([facility]) - 11/20/2016 1:10 PM CDT Performed at: ??01 - [facility], [place], [place] ??[id number] Student Support Services Director: Patrice Lopez PhD, Phone: ??[phone] Theodore Oswald PA-C LAB - CHEMISTRY ORDERABLES Performing Organization Address City/[facility]/ZIP Co de Phone Number [facility] ([facility] * COMPLETE PFT W/WO BRONCHODILATOR (08/01/2016 11:11 AM CDT) Impressions [facility] - 08/01/2016 11:11 AM CDT [facility] OF PULMONARY, CRITICAL CARE, AND SLEEP MEDICINE PULMONARY FUNCTION TESTS Cristinaminerva Quirozard 08/05/2016 INTERPRETATION Please see technologist's comments mentioned above. SPIROMETRY: Forced vital capacity is normal. ?? FEV1 is low. ?? FEV1/FVC ratio is normal. There is no significant response to bronchodilator administration. The inspection of the patient's flow-volume loops shows normal configuration of the inspiratory and expiratory limbs. LUNG VOLUMES: TLC and RV are both low. DLCO: Diffusing capacity adjusted and unadjusted for Hb and COHb is within normal limits. AIRWAY RESISTANCE: The airway resistance and the specific conductance are normal. ARTERIAL BLOOD GAS ANALYSIS: none IMPRESSION: 1. Mild restrictive ventilatory limitation. 2. No significant bronchodilator response. 3. Normal diffusing capacity. 4. There is a significant increase in diffusing capacity compared to 07/12/2015. Zain Lipscomb MD I have personally reviewed pulmonary function test data and finding. I concur with fellow's note. Steve Jo MD Narrative Procedure Note Provider, MD Jose - 10/10/2017 IMPRESSION [facility] DEPARTMENT OF PULMONARY, CRITICAL CARE, AND SLEEP MEDICINE PULMONARY FUNCTION TESTS Cristina Pacheco 08/05/2016 INTERPRETATION Please see technologist's comments mentioned above. SPIROMETRY: Forced vital capacity is normal. FEV1 is low. FEV1/FVC ratio is normal. There is no significant response to bronchodilator administration. The inspection of the patient's flow-volume loops shows normalconfiguration of the inspiratory and expiratory limbs. LUNG VOLUMES: TLC and RV are both low. DLCO: Diffusing capacity adjusted and unadjusted for Hb and COHb is withinnormal limits. AIRWAY RESISTANCE: The airway resistance and the specific conductance arenormal. ARTERIAL BLOOD GAS ANALYSIS: none IMPRESSION: 1. Mild restrictive ventilatory limitation. 2. No significant bronchodilator response. 3. Normal diffusing capacity. 4. There is a significant increase in diffusing capacity compared to07/12/2015. Zain Lipscomb MD I have personally reviewed pulmonary function test data and finding. Iconcur with fellow's note. Steve Jo MD Shawanda Manvel [employer] RESPIRATORY THERAPY ORDERABLES [facility] * XR CHEST 1VW PORTABLE (07/13/2016 1:25 PM FINANCIAL DIRECTOR) Only the most recent of9 resultswithin the time period is included. Anatomical Region Laterality Modality Chest Other Impressions 07/13/2016 3:50 PM FINANCIAL DIRECTOR Impression: No acute pulmonary process. This report has been dictated by Wyatt Mario M.D. (Resident). This report was approved ??by Wyatt Mario ?? on 07/13/2016 2:36 PM . Mike, Dr. PIOTR ROGEL M.D. have personally reviewed and interpreted this examination/study. This report was electronically signed by PIOTR ROGEL M.D. ??on 07/13/2016 3:50 PM . Narrative 07/13/2016 3:50 PM FINANCIAL DIRECTOR Exam: PX CHEST 1 VW. Date: 07/13/2016 1:26 PM. History: Cough, shortness of breath. Comparison: Comparison is made with a study from 07/17/2015. Findings: A left internal jugular approach central venous catheter tip terminates at the cavoatrial junction. There is no focal consolidation, pleural effusion or pneumothorax. The cardiomediastinal silhouette is normal. The visible bony thorax is intact. Procedure Note Piotr Rogel MD - 08/01/2017 Exam: PX CHEST 1 VW. Date: 07/13/2016 1:26 PM. History: Cough, shortness of breath. Comparison: Comparison is made with a study from 07/17/2015. Findings: A left internal jugular approach central venous catheter tip terminates atthe cavoatrial junction. There is no focal consolidation, pleural effusion or pneumothorax. Thecardiomediastinal silhouette is normal. The visible bony thorax isintact. IMPRESSION Impression: No acute pulmonary process. This report has been dictated by Wyatt Mario M.D. (Resident). This report was approved by Wyatt Mario on 07/13/2016 2:[address] PIOTR Mckeon M.D. have personally reviewed and interpreted thisexamination/study. This report was electronically signed by PIOTR ROGEL M.D. on 07/13/20163:50 PM . Yary Kelly APRN-[employer]ITAL CAMPAIGN [facility] DIAGNOSTIC I MAGING ORDERABLES * HEPATITIS B SURFACE ANTIBODY QUANT (03/21/2016 2:05 PM FINANCIAL DIRECTOR) Only the most recent of2 resultswithin the time period is included. Hepatitis B Virus Surface Antibody 91.44 IU/L [facility] Comment: The anti-HBs is greater than or equal to 10 IU/L. This patient has either had an antibody response to HBV vaccination, received a transfusion, or has recovered from HBV infection. This patient should be considered immune to hepatitis B. An anti-HBs result greater than or equal to 10 IU/L implies immunity. For post-vaccination antibody testing guidelines for the general public refer to MMWR April 26, 2005/Vol. 54(No. 16);05-27, and for healthcare workers refer to MMWR April 23, 2013/Vol. 62(No. 10);-. Reference Interval: anti-HBs 9.99 IU/L or less ....... Negative 10.00 IU/L or greater .... Positive Results greater than 1,000.00 IU/L are reported as greater than 1,000.00 IU/L. Performed by [facility], [address] [place] [id number] [email or web address] Dar Lucas MD, Lab. Director Blood specimen (specimen) BLOOD SPECIMEN / Unknown 03/21/2016 2:05 PM FINANCIAL DIRECTOR 03/21/2016 2:21 PM FINANCIAL DIRECTOR Yary Leticia [facility] [place] GY ORDERABLES [facility] ([facility] * ACTH 60 MINUTES (11/29/2015 2:03 PM CDT) Only the most recent of3 resultswithin the time period is included. Cortisol 60 Min 21.8 >=20.0 mcg/dL [facility] Blood specimen (specimen) BLOOD SPECIMEN / Unknown 11/29/2015 2:03 PM CDT 11/29/2015 2:09 PM CDT Historical Provider LAB - CHEMISTRY Tran YOUNGER Performing Organization Address [facility] Co de Phone Number [address] [phone] * (ABNORMAL) ACTH 30 MINUTES (11/29/2015 1:33 PM CDT) Only the most recent of3 resultswithin the time period is included. Cortisol 30 Min 19.5(L) >=20.0 mcg/dL [facility] Blood specimen (specimen) BLOOD SPECIMEN / Unknown 11/29/2015 1:33 PM CDT 11/29/2015 2:09 PM CDT Historical Provider LAB - CHEMISTRY Tran YOUNGER Performing Organization Address [facility] de Phone Number [address] [phone] * ACTH CORTISOL BASELINE (11/29/2015 12:31 PM CDT) Only the most recent of3 resultswithin the time period is included. Cortisol Baseline 5.8 No Reference Range Established mcg/dL [facility] Blood specimen (specimen) BLOOD SPECIMEN / Unknown 11/29/2015 12:31 PM CDT 11/29/2015 12:43 PM CDT Historical Provider LAB - CHEMISTRY Tran YOUNGER Performing Organization Address [facility] Co de Phone Number [address] [phone] * CD4 (ABSOLUTE T4) (11/29/2015 12:31 PM CDT) Only the most recent of6 resultswithin the time period is included. [place] Cells (CD4) Accession No: [id number] Specimen: Blood Reference:[id number] Reason for test: CD4 Requested Markers: 3 Flow Cytometry Results: Differential ?Result ?Comment WBC COUNT/uL ? 9300 %LYMPHOCYTES ? 14 LYMPH COUNT/uL ?1302 CD4 COUNT/uL ?286 Cell Region A: Lymphocytes Surface Marker ?Result (%) ??Abs Count (cells/ul) ?CD3 ? 52 ?677 ? CD3+CD4+ ? 22 ?286 ? CD3+CD8+ ? 29 ?378 CD4:CD8 RATIO ? 0.76 ?0.76 Peripheral Blood Lymphocyte Adult Normal Reference Range (%) except CD4/CD8 CD1 ? 0 ? CD24 ?11-19 CD2 ? 74-94 ? CD25 ?5-17 CD3 ? 54-94 ? CD33 ?0-7 CD4 ? 40-56 ? CD34 ?0-3 CD4/CD8 ? (0.7-2.7) ?? CD38 ?15-55 CD5 ? 57-93 ? CD45 ?97-100 CD7 ? 58-82 ? CD56 ?6-26 CD8 ? 17-45 ? CD57 ?0-26 CD10 ?1-9 ? CD117 ? 0 CD11b ? 14-42 ? CD138 ? 0-1 CD11c ? 4-14 ?IgG ? 0-7 CD13 ?0-4 ? IgM ? 4-16 CD14 ?0-11 ?IgA ? 2-6 CD15 ?0-1 ? IgD ? 3-15 CD16 ?0-23 ?[place] ? 3-12 CD19 ?8-24 ?Lambda ?3-7 CD20 ?7-17 ?HLA-DR ?9-25 CD23 ?2-16 ?TdT ? 0 Test performed at [facility], [address] [place] [id number] This test was developed and its performance characteristics determined by [facility]. It has not been cleared by the U.S. Food and Drug Administration. The FDA has determined that such clearance or approval is not necessary. This test is used for clinical purposes. It should not be regarded as investigational or for research. This laboratory is regulated under the Clinical Laboratory Improvement Amendments of 1998 (CLIA) as qualified to perform high complexity clinical testing. By law [place], CD4 lymphocyte counts on patients with HIV infection must be reported by the physician to the [facility] Health authority. [facility] Other (qualifier value) 11/29/2015 12:31 PM CDT 11/29/2015 2:08 PM CDT Historical Provider MD LAB - HEMATOLOGY ORDERABLES [facility] ([facility] * ACTH (11/29/2015 12:31 PM CDT) Only the most recent of4 resultswithin the time period is included. Blood specimen (specimen) 11/29/2015 12:[address] [facility] - 11/29/2015 2:58 PM CDT The following orders were created for panel order ACTH Stimulation for Cortisol. Procedure ? Abnormality ? Status ? --------- ? ------ ? ACTH Stimulation, Baselin...[[id number]] ?Final result ? ACTH Stimulation, 30 min....[[id number]] ??Abnormal ?Final result ? ACTH Stimulation, 60 min....[[id number]] ??Normal ?Final result ? Please view results for these tests on the individual orders. Historical Provider MD LAB - CHEMISTRY O RDERABLES [facility] [address] [place] [address], [facility] * GROSS + MICRO EXAM (STL) (11/15/2015 12:04 PM CDT) Case Report Surgical Pathology Report ? Case: [id number] ? Authorizing Provider: ??Stephanie Piedra, ?Collected: ? 11/15/2015 12:04 PM ? Ordering Location: ? [facility]/ ?Received: ?11/16/2015 06:03 AM ? EVALUATION UNIT ? Pathologist: ? Martin, Sammi, ? Specimens: ?? A) - CervixBiopsy ? B) - Endocervix Curettings ? 11/17/2015 2:38 PM CDT [facility] Final Diagnosis 1. ??Cervix, biopsy: -- ??No pathologic diagnosis 2. ??Endocervix, curettings: -- ??No pathologic diagnosis MIKE/GC/natalia 11/17/2015 2:38 PM CDT [facility] Gross Description The specimens are received in formalin in two containers each labeled with the patient's name, Cristina Pacheco Specimen A, biopsy at 8:00, consists of one soft, yellow-lomeli tissue fragment measuring 0.4 cm in greatest dimension. The specimen is submitted in toto in cassette A1. Specimen B, ECC, consists of a plastic tube with brush tip, has attached scant amount of lomeli mucoid material. The tissue is thoroughly scraped off of the brush tip. The specimen is filtered. The aggregate measurement is 1.5 x 0.6 x less than 0.1 cm. The specimen is submitted entirely in cassette B1. Karli 11/17/2015 2:38 PM CDT [facility] Microscopic Description Sections from specimen A show clusters of fragmented squamous epithelial cells intermixed with few inflammatory cells. Few (approximately 7 cells) endocervical cells are present. No evidence of atypia or malignancy is seen. Sections from specimen B show mucus with few squamous epithelial cells and few endocervical cells. No atypia or malignancy is seen. Natalio 11/17/2015 2:38 PM CDT [facility] Pathology/Cytology CURETTINGS / Unknown 11/15/2015 12:04 PM CDT 11/16/2015 6:03 AM CDT Miscellaneous samples (specimen) CURETTINGS / Unknown 11/15/2015 12:04 PM CDT 11/16/2015 6:04 AM CDT Stephanie Piedra MD LAB - PATHOLOGY/CYTO LOGY ORDERABLES [facility] [address] [place] [address] * (ABNORMAL) DOUG-ARRIAZA VIRUS PCR QUANT BLOOD/CSF (11/15/2015 11:49 AM CDT) Only the most recent of56 resultswithin the time period is included. Doug-Arriaza Virus DNA Quantitative RT-PCR Accession No: [id number] Specimen: Peripheral Blood Reference: [id number] Test: Real Time PCR (TaqMan) Detection/Quantita tion of Doug Arriaza Viral DNA Result: EBV DNA, while detected, was below the limit of reliable quantification. Reference Range Not Detected Interpretation: DNA isolated from the specimen was analyzed in a TaqMan based assay to detect and quantify Doug-Arriaza DNA. ??A 68 bp fragment of the viral EBNA1 gene is amplified and detected by hybridization with a fluorescently-labe led probe and subsequent hydrolysis. ??Comparison with a standard curve is used for quantification of the EBV DNA. ??Isolation of amplifiable human DNA was confirmed by the successful amplification of a portion of a normal human gene (human growth hormone). EBV DNA was detected. The reliable lower limit of quantitation of this assay is 3250 copies/ml. This test was developed and its performance characteristics determined by the [facility] at [facility]. It has not been cleared or approved by the U.S. Food and Drug Administration. The FDA has determined that such clearance or approval is not necessary. This test is used for clinical purposes. It should not be regarded as investigational or for research. This laboratory is certified under the Clinical Laboratory Improvement Amendments of 1988 (CLIA-88) as qualified to perform high complexity clinical laboratory testing. Test performed at [facility], [address] [place] [address] ??[id number] This case has been personally reviewed and interpreted by the attending (teaching) pathologist. Final Diagnosis performed by Kevin Uribe PHD. Electronically signed 11/21/2015(A) [facility] Other (qualifier value) 11/15/2015 11:49 AM CDT 11/15/2015 12:01 PM CDT Narrative [facility] - 11/21/2015 3:30 PM CDT Specimen Type->Blood Taryn Contreras LAB - MICROBIOLOGY O RDERABLES [facility] * HCG URINE QUALITATIVE - POINT OF CARE (IP) (11/15/2015 9:10 AM CDT) HCG Qual Urine Negative Negative [facility] Comment:HCg ordered and resu lted in Epic 11-22-15 per OB clinic worksheet by POC staff QC Verified Yes Yes [facility] T TESTING Urine specimen (specimen) URINE / Unknown 11/15/2015 9:10 AM CDT Stephanie Piedra MD LAB - POINT OF CARE ORDERABLES [facility] [address] [phone] * IR VENTURA CATH INSERT (08/02/2015 1:12 PM CDT) Anatomical Region Laterality Modality Other Narrative 08/02/2015 5:17 PM CDT This is an Interventional Nephrology procedure performed on 08/02/2015 5:14 PM Attending(s), Foreign Exchange Student Coordinator(s): ??Erna Muhammad MD Procedures performed: 1. Insertion of tunneled central venous catheter with subcutaneous port 2. Fluoroscopic guidance for central venous catheter procedure. 3. Ultrasound guidance for vascular access with permanent recording. 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 Following informed consent the patient was taken to the angiography suite where she was noted to have a right internal jugular tunneled central venous catheter.The existing dressing was removed, the skin was cleansed with chlorhexidine and sterile drapes were applied. Local anesthetic was infiltrated around the exit site and the area of the subcutaneous cuff. The exit site suture was removed.Using blunt and sharp dissection, the catheter was freed from surrounding tissues and with traction was brought to the surface. Holding pressure at the venotomy site in the neck, the catheter was removed in its entirety. Hemostasis was secured with pressure. A sterile occlusive dressing was then applied. Following that, attention was turned to port insertion. The skin of the left neck and chest was prepared with chlorhexidine and sterile drapes were applied. ??Under real time ultrasound guidance, the left internal jugular vein was accessed with a micropuncture needle and a microfilament wire was advanced to the central veins under fluoroscopic guidance. ??This allowed the placement of a 5 [place] trocar which in turn allowed the placement of a 0.035 guidewire which was manipulated into the IVC. ??A site for the port was chosen on the chest wall and anesthetized with lidocaine. ??Around a 1 inch incision was made and a subcutaneous pocket was created by blunt dissection. Using a metal tunneling device, the catheter was brought through a subcutaneous tunnel to the venotomy incision and prepared for insertion. A peel-away sheath was inserted over the guidewire and the inner stylet was removed. The catheter was inserted through the sheath which was then removed. The catheter was adjusted for length under fluoroscopy such that the tip was at the junction of the SVC and RA. The port was attached and flushed easily and was locked with heparin. The subcutaneous tissue was approximated with interrupted 3-0 Vicryl sutures and the incision was closed with a running 4-0 Vicryl subcuticular suture line. The wound and the venotomy incision were sealed with Dermabond. I was present for the entirety of the procedure. This report was electronically signed by ERNA MUHAMMAD MD ??on 08/02/2015 5:17 PM . Procedure Note Erna Muhammad MD - 08/02/2017 This is an Interventional Nephrology procedure performed on 08/02/2015 5:14PM Attending(s), Foreign Exchange Student Coordinator(s): Erna Muhammad MD Procedures performed: 1. Insertion of tunneled central venous catheter with subcutaneous port 2. Fluoroscopic guidance for central venous catheter procedure. 3. Ultrasound guidance for vascular access with permanent recording. 4.Removal of tunneled central venous catheter This patient was referred for removal of a tunneled Damico catheter andplacement of a port-a-cath for continued treatment of leukemia. Following informed consent the patient was taken to the angiography suitewhere she was noted to have a right internal jugular tunneled centralvenous catheter.The existing dressing was removed, the skin was cleansedwith chlorhexidine and sterile drapes were applied. Local anesthetic was infiltrated around the exit site andthe area of the subcutaneous cuff. The exit site suture was removed.Usingblunt and sharp dissection, the catheter was freed from surroundingtissues and with traction was brought to the surface. Holding pressure at the venotomy site in the neck, thecatheter was removed in its entirety. Hemostasis was secured withpressure. A sterile occlusive dressing was then applied. Following that, attention was turned to port insertion. The skin of theleft neck and chest was prepared with chlorhexidine and sterile drapeswere applied. Under real time ultrasound guidance, the left internaljugular vein was accessed with a micropuncture needle and a microfilament wire was advanced to the centralveins under fluoroscopic guidance. This allowed the placement of a 5French trocar which in turn allowed the placement of a 0.035 guidewirewhich was manipulated into the IVC. A site for the port was chosen on the chest wall and anesthetized withlidocaine. Around a 1 inch incision was made and a subcutaneous pocketwas created by blunt dissection. Using a metal tunneling device, thecatheter was brought through a subcutaneous tunnel to the venotomy incision and prepared for insertion. A peel-awaysheath was inserted over the guidewire and the inner stylet was removed.The catheter was inserted through the sheath which was then removed. Thecatheter was adjusted for length under fluoroscopy such that the tip was at the junction of the SVC and RA.The port was attached and flushed easily and was locked with heparin. Thesubcutaneous tissue was approximated with interrupted 3-0 Vicryl suturesand the incision was closed with a running 4-0 Vicryl subcuticular suture line. The wound and the venotomyincision were sealed with Dermabond. I was present for the entirety of the procedure. This report was electronically signed by ERNA MUHAMMAD MD on 08/02/20155:17 PM . Historical Provider MD CURTIS ORDERABLES * IR PICC LINE INSERT (08/02/2015 1:12 PM CDT) Anatomical Region Laterality Modality Other Narrative 08/02/2015 5:17 PM CDT This is an Interventional Nephrology procedure performed on 08/02/2015 5:14 PM Attending(s), Foreign Exchange Student Coordinator(s): ??Erna Muhammad MD Procedures performed: 1. Insertion of tunneled central venous catheter with subcutaneous port 2. Fluoroscopic guidance for central venous catheter procedure. 3. Ultrasound guidance for vascular access with permanent recording. 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 Following informed consent the patient was taken to the angiography suite where she was noted to have a right internal jugular tunneled central venous catheter.The existing dressing was removed, the skin was cleansed with chlorhexidine and sterile drapes were applied. Local anesthetic was infiltrated around the exit site and the area of the subcutaneous cuff. The exit site suture was removed.Using blunt and sharp dissection, the catheter was freed from surrounding tissues and with traction was brought to the surface. Holding pressure at the venotomy site in the neck, the catheter was removed in its entirety. Hemostasis was secured with pressure. A sterile occlusive dressing was then applied. Following that, attention was turned to port insertion. The skin of the left neck and chest was prepared with chlorhexidine and sterile drapes were applied. ??Under real time ultrasound guidance, the left internal jugular vein was accessed with a micropuncture needle and a microfilament wire was advanced to the central veins under fluoroscopic guidance. ??This allowed the placement of a 5 [place] trocar which in turn allowed the placement of a 0.035 guidewire which was manipulated into the IVC. ??A site for the port was chosen on the chest wall and anesthetized with lidocaine. ??Around a 1 inch incision was made and a subcutaneous pocket was created by blunt dissection. Using a metal tunneling device, the catheter was brought through a subcutaneous tunnel to the venotomy incision and prepared for insertion. A peel-away sheath was inserted over the guidewire and the inner stylet was removed. The catheter was inserted through the sheath which was then removed. The catheter was adjusted for length under fluoroscopy such that the tip was at the junction of the SVC and RA. The port was attached and flushed easily and was locked with heparin. The subcutaneous tissue was approximated with interrupted 3-0 Vicryl sutures and the incision was closed with a running 4-0 Vicryl subcuticular suture line. The wound and the venotomy incision were sealed with Dermabond. I was present for the entirety of the procedure. This report was electronically signed by ERNA MUHAMMAD MD ??on 08/02/2015 5:17 PM . Procedure Note Erna Muhammad MD - 08/02/2017 This is an Interventional Nephrology procedure performed on 08/02/2015 5:14PM Attending(s), Foreign Exchange Student Coordinator(s): Erna Muhammad MD Procedures performed: 1. Insertion of tunneled central venous catheter with subcutaneous port 2. Fluoroscopic guidance for central venous catheter procedure. 3. Ultrasound guidance for vascular access with permanent recording. 4.Removal of tunneled central venous catheter This patient was referred for removal of a tunneled Damico catheter andplacement of a port-a-cath for continued treatment of leukemia. Following informed consent the patient was taken to the angiography suitewhere she was noted to have a right internal jugular tunneled centralvenous catheter.The existing dressing was removed, the skin was cleansedwith chlorhexidine and sterile drapes were applied. Local anesthetic was infiltrated around the exit site andthe area of the subcutaneous cuff. The exit site suture was removed.Usingblunt and sharp dissection, the catheter was freed from surroundingtissues and with traction was brought to the surface. Holding pressure at the venotomy site in the neck, thecatheter was removed in its entirety. Hemostasis was secured withpressure. A sterile occlusive dressing was then applied. Following that, attention was turned to port insertion. The skin of theleft neck and chest was prepared with chlorhexidine and sterile drapeswere applied. Under real time ultrasound guidance, the left internaljugular vein was accessed with a micropuncture needle and a microfilament wire was advanced to the centralveins under fluoroscopic guidance. This allowed the placement of a 5French trocar which in turn allowed the placement of a 0.035 guidewirewhich was manipulated into the IVC. A site for the port was chosen on the chest wall and anesthetized withlidocaine. Around a 1 inch incision was made and a subcutaneous pocketwas created by blunt dissection. Using a metal tunneling device, thecatheter was brought through a subcutaneous tunnel to the venotomy incision and prepared for insertion. A peel-awaysheath was inserted over the guidewire and the inner stylet was removed.The catheter was inserted through the sheath which was then removed. Thecatheter was adjusted for length under fluoroscopy such that the tip was at the junction of the SVC and RA.The port was attached and flushed easily and was locked with heparin. Thesubcutaneous tissue was approximated with interrupted 3-0 Vicryl suturesand the incision was closed with a running 4-0 Vicryl subcuticular suture line. The wound and the venotomyincision were sealed with Dermabond. I was present for the entirety of the procedure. This report was electronically signed by ERNA MUHAMMAD MD on 08/02/20155:17 PM . Historical Provider IR ORDERABLES * IR US GUIDE VASCULAR ACCESS (08/02/2015 1:12 PM CDT) Only the most recent of3 resultswithin the time period is included. Anatomical Region Laterality Modality Other Narrative 08/02/2015 5:17 PM CDT This is an Interventional Nephrology procedure performed on 08/02/2015 5:14 PM Attending(s), Foreign Exchange Student Coordinator(s): ??Erna Muhammad MD Procedures performed: 1. Insertion of tunneled central venous catheter with subcutaneous port 2. Fluoroscopic guidance for central venous catheter procedure. 3. Ultrasound guidance for vascular access with permanent recording. 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 Following informed consent the patient was taken to the angiography suite where she was noted to have a right internal jugular tunneled central venous catheter.The existing dressing was removed, the skin was cleansed with chlorhexidine and sterile drapes were applied. Local anesthetic was infiltrated around the exit site and the area of the subcutaneous cuff. The exit site suture was removed.Using blunt and sharp dissection, the catheter was freed from surrounding tissues and with traction was brought to the surface. Holding pressure at the venotomy site in the neck, the catheter was removed in its entirety. Hemostasis was secured with pressure. A sterile occlusive dressing was then applied. Following that, attention was turned to port insertion. The skin of the left neck and chest was prepared with chlorhexidine and sterile drapes were applied. ??Under real time ultrasound guidance, the left internal jugular vein was accessed with a micropuncture needle and a microfilament wire was advanced to the central veins under fluoroscopic guidance. ??This allowed the placement of a 5 Guatemalan trocar which in turn allowed the placement of a 0.035 guidewire which was manipulated into the IVC. ??A site for the port was chosen on the chest wall and anesthetized with lidocaine. ??Around a 1 inch incision was made and a subcutaneous pocket was created by blunt dissection. Using a metal tunneling device, the catheter was brought through a subcutaneous tunnel to the venotomy incision and prepared for insertion. A peel-away sheath was inserted over the guidewire and the inner stylet was removed. The catheter was inserted through the sheath which was then removed. The catheter was adjusted for length under fluoroscopy such that the tip was at the junction of the SVC and RA. The port was attached and flushed easily and was locked with heparin. The subcutaneous tissue was approximated with interrupted 3-0 Vicryl sutures and the incision was closed with a running 4-0 Vicryl subcuticular suture line. The wound and the venotomy incision were sealed with Dermabond. I was present for the entirety of the procedure. This report was electronically signed by ERNA MUHAMMAD MD ??on 08/02/2015 5:17 PM . Procedure Note Erna Muhammad MD - 08/02/2017 This is an Interventional Nephrology procedure performed on 08/02/2015 5:14PM Attending(s), Foreign Exchange Student Coordinator(s): Erna Muhammad MD Procedures performed: 1. Insertion of tunneled central venous catheter with subcutaneous port 2. Fluoroscopic guidance for central venous catheter procedure. 3. Ultrasound guidance for vascular access with permanent recording. 4.Removal of tunneled central venous catheter This patient was referred for removal of a tunneled Damico catheter andplacement of a port-a-cath for continued treatment of leukemia. Following informed consent the patient was taken to the angiography suitewhere she was noted to have a right internal jugular tunneled centralvenous catheter.The existing dressing was removed, the skin was cleansedwith chlorhexidine and sterile drapes were applied. Local anesthetic was infiltrated around the exit site andthe area of the subcutaneous cuff. The exit site suture was removed.Usingblunt and sharp dissection, the catheter was freed from surroundingtissues and with traction was brought to the surface. Holding pressure at the venotomy site in the neck, thecatheter was removed in its entirety. Hemostasis was secured withpressure. A sterile occlusive dressing was then applied. Following that, attention was turned to port insertion. The skin of theleft neck and chest was prepared with chlorhexidine and sterile drapeswere applied. Under real time ultrasound guidance, the left internaljugular vein was accessed with a micropuncture needle and a microfilament wire was advanced to the centralveins under fluoroscopic guidance. This allowed the placement of a 5French trocar which in turn allowed the placement of a 0.035 guidewirewhich was manipulated into the IVC. A site for the port was chosen on the chest wall and anesthetized withlidocaine. Around a 1 inch incision was made and a subcutaneous pocketwas created by blunt dissection. Using a metal tunneling device, thecatheter was brought through a subcutaneous tunnel to the venotomy incision and prepared for insertion. A peel-awaysheath was inserted over the guidewire and the inner stylet was removed.The catheter was inserted through the sheath which was then removed. Thecatheter was adjusted for length under fluoroscopy such that the tip was at the junction of the SVC and RA.The port was attached and flushed easily and was locked with heparin. Thesubcutaneous tissue was approximated with interrupted 3-0 Vicryl suturesand the incision was closed with a running 4-0 Vicryl subcuticular suture line. The wound and the venotomyincision were sealed with Dermabond. I was present for the entirety of the procedure. This report was electronically signed by ERNA MUHAMMAD MD on 08/02/20155:17 PM . Historical Provider IR ORDERABLES * POST TRANSPLANT ENGRAFTMENT ANALYSIS (07/26/2015 11:15 AM CDT) Only the most recent of13 resultswithin the time period is included. Blood specimen (specimen) BLOOD SPECIMEN / Unknown 07/26/2015 11:15 AM CDT 07/26/2015 12:06 PM CDT Historical Provider LAB - CHEMISTRY O RDERABLES [place] [id number] [address] * CT CHEST WO CONTRAST (07/19/2015 12:52 PM CDT) Only the most recent of4 resultswithin the time period is included. Anatomical Region Laterality Modality Chest Other Impressions 07/19/2015 3:44 PM CDT IMPRESSION: 1. Interval near complete resolution of a peripheral right upper lobe nodular opacity. However, there has been interval development of a few focal groundglass opacities predominately in the right upper lobe. These may represent developing infection (including atypical infection), scarring, or posttreatment change. Attention on follow-up examination is recommended. Dictated by Gaurav Calvo MD (anesthesia resident). This report was approved ??by Gaurav Calvo ?? on 07/19/2015 2:26 PM . I, Dr. RUBEN MAN M.D. have personally reviewed and interpreted this examination/study. This report was electronically signed by RUBEN MAN M.D. ??on 07/19/2015 3:44 PM . Narrative 07/19/2015 3:44 PM CDT EXAMINATION: Computed tomography (CT) of the chest without contrast HISTORY: Pulmonary opacities, history of leukemia status post bone marrow transplant TECHNIQUE: CT of the chest was performed without contrast according to standard protocol. COMPARISON: Comparison is made with a study from 04/19/2015. FINDINGS: Evaluation of visceral and vascular structures is degraded due to lack of intravenous contrast administration. 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 The aorta and main pulmonary arteries are normal in course and caliber. A right internal jugular approach central venous port is present. There has been interval near complete resolution of a peripheral nodular consolidation in the right upper lobe. There are new focal groundglass opacities in the right upper lobe (series 6), including 4 mm (image 22), 6 mm (image 27), 2 mm in (image 30), and 2.2 cm (image 35). An additional focal groundglass opacity measuring 5 mm in the right lower lobe is also identified (image 41). A nodular opacity along the right major fissure is unchanged and may represent an intrafissural lymph node. No pleural effusion is identified. There is no evidence of pneumothorax. The trachea is patent and midline. The heart size is normal. No pericardial effusion is present. No mediastinal, supraclavicular, or axillary lymphadenopathy is seen. Diffuse hepatic steatosis is redemonstrated. Otherwise the visible portions of the liver, gallbladder, spleen, pancreas, adrenal glands, kidneys, stomach, and bowel are normal. Bone windows demonstrate no suspicious lytic or blastic lesions. The visible osseous structures are intact. Procedure Note Ruben Man MD - 08/02/2017 EXAMINATION: Computed tomography (CT) of the chest without contrast HISTORY: Pulmonary opacities, history of leukemia status post bone marrowtransplant TECHNIQUE: CT of the chest was performed without contrast according tostandard protocol. COMPARISON: Comparison is made with a study from 04/19/2015. FINDINGS: Evaluation of visceral and vascular structures is degraded due to lack ofintravenous contrast administration. 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 The aorta and mainpulmonary arteries are normal in course and caliber. A right internaljugular approach central venous port is present. There has been interval near complete resolution of a peripheral nodularconsolidation in the right upper lobe. There are new focal groundglassopacities in the right upper lobe (series 6), including 4 mm (image 22), 6mm (image 27), 2 mm in (image 30), and 2.2 cm (image 35). An additional focal groundglass opacity measuring 5mm in the right lower lobe is also identified (image 41). A nodularopacity along the right major fissure is unchanged and may represent anintrafissural lymph node. No pleural effusion is identified. There is no evidence of pneumothorax. The tracheais patent and midline. The heart size is normal. No pericardial effusion is present. Nomediastinal, supraclavicular, or axillary lymphadenopathy is seen. Diffuse hepatic steatosis is redemonstrated. Otherwise the visibleportions of the liver, gallbladder, spleen, pancreas, adrenal glands,kidneys, stomach, and bowel are normal. Bone windows demonstrate no suspicious lytic or blastic lesions. Thevisible osseous structures are intact. IMPRESSION IMPRESSION: 1. Interval near complete resolution of a peripheral right upper lobenodular opacity. However, there has been interval development of a fewfocal groundglass opacities predominately in the right upper lobe. Thesemay represent developing infection (including atypical infection), scarring, or posttreatment change.Attention on follow-up examination is recommended. Dictated by Gaurav Calvo MD (anesthesia resident). This report was approved by Gaurav Calvo on 07/19/2015 2:26 PM . I, Dr. RUBEN MAN M.D. have personally reviewed and interpreted thisexamination/study. This report was electronically signed by RUBEN MAN M.D. on 07/19/20153:44 PM . Viki DUKES ORDERABLES * GLUCOSE ACCUCHECK (07/19/2015 11:19 AM CDT) Only the most recent of402 resultswithin the time period is included. Glucose, Fingerstick 106 70-115mg/d L mg/dL [facility] ([facility]) Comment:Foreign Exchange Student Coordinator: KATHERINE HERNDON 07/19/2015 11:1 9 AM CDT Angelica Watson MD LAB - CHEMISTRY MARICARMEN [facility] ([facility]) * (ABNORMAL) URINALYSIS W/MICROSCOPIC NO CULTURE (07/17/2015 2:14 PM CDT) Only the most recent of8 resultswithin the time period is included. Color UA Yellow Straw, Yellow, Colorless, Light Yellow [facility] Clarity UA Clear Clear [facility] Specific [place] UA 1.018 1.001 - 1.030 [facility] pH UA 5.5 5.0 - 8.0 [facility] Protein UA Negative <=20 mg/dL [facility] Glucose UA Negative Negative mg/dL [facility] Ketone UA Negative Negative mg/dL [facility] Bilirubin UA Negative Negative mg/dL [facility] Blood UA Negative Negative [facility] Nitrite UA Negative Negative [facility] Leukocyte Esterase Negative Negative [facility] Urobilinogen UA <2.0 <2.0 mg/dL [facility] RBC UA 4 0 - 8 /HPF [facility] WBC UA 2 0 - 2 /HPF [facility] Squamous Epithelial Cells UA <1 0 - 1 /HPF [facility] Mucus UA Many(A) None /LPF [facility] Urine specimen (specimen) 07/17/2015 2:14 PM CDT 07/17/2015 2:21 PM CDT Historical Provider LAB - URINALYSIS ORDERABLES [address] [phone] * (ABNORMAL) PAP SMEAR LB RFLX HPV ASCU (PO REF LAB) (07/14/2015 3:26 PM FINANCIAL DIRECTOR) Diagnosis Comment(A) 07/21/2015 2:28 PM CDT [facility] ([facility]) Comment: EPITHELIAL CELL ABNORMALITY. LOW-GRADE SQUAMOUS INTRAEPITHELIAL LESION (LGSIL); MILD DYSPLASIA IS PRESENT. Recommendation Comment(A) 07/21/2015 2:28 PM CDT [facility] ([facility]) Comment:Suggest follow up as clinically appropriate. Specimen Adequacy Comment 07/21/2015 2:28 PM CDT [facility] ([facility]) Comment: Satisfactory for evaluation. ??Endocervical and/or squamous metaplastic cells (endocervical component) are present. Performed by Comment 07/21/2015 2:28 PM CDT [facility] ([facility]) Comment:Aleyda Koo, Cytot echnologist (ASCP) Electronically Signed by Comment 07/21/2015 2:28 PM CDT [facility] ([facility]) Comment:Moriah Brooks MD, Pathologist Comment . 07/21/2015 2:28 PM CDT [facility] ([facility]) Pathologist Provided ICD10 Comment 07/21/2015 2:28 PM CDT [facility] ([facility]) Comment:R87.612 Note Comment 07/21/2015 2:28 PM CDT [facility] ([facility]) Comment: The Pap smear is a screening test designed to aid in the detection of premalignant and malignant conditions of the uterine cervix. ??It is not a diagnostic procedure and should not be used as the sole means of detecting cervical cancer. ??Both false-positive and false-negative reports do occur. Note Comment 07/21/2015 2:28 PM CDT [facility] ([facility]) Comment: The HPV DNA reflex criteria were not met with this specimen result therefore, no HPV testing was performed. Miscellaneous samples (specimen) MICROSCOPIC CYTOLOGIC EXAMINATION OF SMEAR OF SPECIMEN FROM FEMALE GENITAL TRACT PREPARED USING PAPANICOLAOU TECHNIQUE / Unknown Venipuncture / Unknown 07/14/2015 3:26 PM FINANCIAL DIRECTOR 07/17/2015 11:24 AM CDT Narrative [facility] ([facility]) - 07/21/2015 2:28 PM CDT Performed at: ??01 - [address], [place] ??[id number] Student Support Services Director: Moriah Brooks MD, Phone: ??[phone] Specimen Comment: Source.............Cervical Specimen Comment: LMP / Prev Treat...XRF=[id number];[place] / BX Specimen Comment: Dates / Results....no Specimen Comment: Other..............Post Menopausal Specimen Comment: No. of containers..01 CYTYC Thin Prep Vial Thom Guzmán MD LAB - PATHOLOGY/CYTO LOGY [facility] * COMPLETE PFT W/WO BRONCHODILATOR (07/12/2015 10:17 AM FINANCIAL DIRECTOR) Impressions [facility] - 07/12/2015 10:17 AM FINANCIAL DIRECTOR [facility] DEPARTMENT OF PULMONARY, CRITICAL CARE, AND SLEEP MEDICINE PULMONARY FUNCTION TESTS Cristina Junior 07/12/2015 INTERPRETATION Please see technologist's comments mentioned above. SPIROMETRY: Forced vital capacity is reduced. ??FEV1 is reduced. FEV1/FVC ratio is normal. There is no significant response to bronchodilator therapy. This does not preclude the use of bronchodilator response if clinically indicated. The inspection of the patient's flow-volume loops shows normal configuration of the inspiratory and expiratory limbs. LUNG VOLUMES: Lung volumes by body plethysmography are within normal limits. DLCO: Diffusing capacity adjusted for Hb is reduced. AIRWAY RESISTANCE: The airway resistance and the specific conductance are normal. ARTERIAL BLOOD GAS ANALYSIS: Not performed. IMPRESSION: 1. Mild non specific ventilatory limitation. 2. Mild reduction in the diffusion capacity. 3. Compared to the study dated 04/12/2015, there is no significant change in FVC, TLC, or DLCO. FEV1 decreased by 220 ml. Jethro Brwone MD ( Fellow) Division of Pulmonary, Critical Care, & Sleep Medicine [facility] P: [phone] 07/12/2015 , 11:05 AM I have personally reviewed pulmonary function test data and finding. I concur with fellow's note. Steve Jo MD Narrative Procedure Note Provider, MD Jose - 10/10/2017 IMPRESSION [facility] DEPARTMENT OF PULMONARY, CRITICAL CARE, AND SLEEP MEDICINE PULMONARY FUNCTION TESTS Cristina Pacheco 07/12/2015 INTERPRETATION Please see technologist's comments mentioned above. SPIROMETRY: Forced vital capacity is reduced. FEV1 is reduced. FEV1/FVC ratio is normal. There is no significant response to bronchodilator therapy. This does not preclude the use of bronchodilator response if clinically indicated. The inspection of the patient's flow-volume loops shows normal configuration of the inspiratory and expiratory limbs. LUNG VOLUMES: Lung volumes by body plethysmography are within normal limits. DLCO: Diffusing capacity adjusted for Hb is reduced. AIRWAY RESISTANCE: The airway resistance and the specific conductance are normal. ARTERIAL BLOOD GAS ANALYSIS: Not performed. IMPRESSION: 1. Mild non specific ventilatory limitation. 2. Mild reduction in the diffusion capacity. 3. Compared to the study dated 04/12/2015, there is no significant change in FVC, TLC, or DLCO. FEV1 decreased by 220 ml. Jethro Browne MD ( Fellow) Division of Pulmonary, Critical Care, & Sleep Medicine [facility] P: [phone] 07/12/2015 , 11:05 AM I have personally reviewed pulmonary function test data and finding. I concur with fellow's note. Steve Jo MD Huma Saldivar APRN-CAPITAL CAMPAIGN [facility] T HERAPY ORDERABLES [facility] * (ABNORMAL) TRANSFERRIN (06/14/2015 8:53 AM FINANCIAL DIRECTOR) Only the most recent of4 resultswithin the time period is included. Transferrin 280 174 - 382 mg/dL [facility] Transferrin Saturation % 15(L) 16 - 50 % [facility] Blood specimen (specimen) BLOOD SPECIMEN / Unknown 06/14/2015 8:53 AM FINANCIAL DIRECTOR 06/14/2015 8:59 AM FINANCIAL DIRECTOR Shawanda Lopez PLANER MILL GRADER-[employer]ITAL CAMPAIGN [facility] LAB - CHEMISTRY ORDE RABLES Performing Organization Address [facility] de Phone Number [address] [phone] * RETIC COUNT (06/14/2015 8:53 AM FINANCIAL DIRECTOR) Only the most recent of5 resultswithin the time period is included. Reticulocyte % 1.8 0.4 - 2.5 % [facility] Reticulocyte Absolute 0.08 0.02 - 0.13 10? 6 /uL [facility] Blood specimen (specimen) BLOOD SPECIMEN / Unknown 06/14/2015 8:53 AM FINANCIAL DIRECTOR 06/14/2015 8:59 AM FINANCIAL DIRECTOR Shawanda Manvel PLANER MILL GRADER-[employer]ITAL [employer] [facility] - HEMATOLOGY ORD ERABLES Performing Organization Address [facility] de Phone Number [address] [phone] * IRON BLOOD (06/14/2015 8:53 AM FINANCIAL DIRECTOR) Only the most recent of4 resultswithin the time period is included. Iron 53 40 - 150 mcg/dL [facility] Blood specimen (specimen) BLOOD SPECIMEN / Unknown 06/14/2015 8:53 AM FINANCIAL DIRECTOR 06/14/2015 8:59 AM FINANCIAL DIRECTOR Shawanda Manvel PLANER MILL GRADER-CAPITAL CAMPAIGN [facility] LAB - CHEMISTRY ORDE RABLES Performing Organization Address [facility] [place] [address], [facility] [phone] * FERRITIN (06/14/2015 8:53 AM FINANCIAL DIRECTOR) Only the most recent of4 resultswithin the time period is included. Ferritin 89 13 - 204 ng/mL [facility] Blood specimen (specimen) BLOOD SPECIMEN / Unknown 06/14/2015 8:53 AM FINANCIAL DIRECTOR 06/14/2015 8:59 AM FINANCIAL DIRECTOR Shawanda John PLANER MILL GRADER-CAPITAL CAMPAIGN [facility] LAB - CHEMISTRY ORDE RABLES Performing Organization Address [facility] Co de Phone Number [facility] [address] [phone] * PATHOLOGY/GENETICS HISTORICAL-ONBASE (06/09/2015) Only the most recent of11 resultswithin the time period is included. 06/09/[address] [facility] - 06/20/2015 3:21 PM FINANCIAL DIRECTOR Historical Provider LAB - CHEMISTRY O RDERABLES Performing Organization Address [facility] Co de Phone Number [facility] [address] [place] [address] * HOLD SPECIMEN DNA (06/07/2015 12:05 PM FINANCIAL DIRECTOR) Only the most recent of7 resultswithin the time period is included. DNA Hold Specimen Specimen: 3 ml Bone Marrow Reference: [id number] Test: HemOnc Isolation Only RESULT DNA was isolated from the bone marrow specimen and quantified. 200 uL of DNA was isolated with a spectrophotometric concentration of 204 ng/uL and an A260/280 = 1.93 . INTERPRETATION No specific testing was performed at this time. COMMENT The DNA will be stored for potential future testing. This test was developed and its performance characteristics determined by the DNA Diagnostic Laboratory at [facility]. It has not been cleared or approved by the U.S. Food and Drug Administration. The FDA has determined that such clearance or approval is not necessary. This test is used for clinical purposes. It should not be regarded as investigational or for research. This laboratory is certified under the Clinical Laboratory Improvement Amendments of 1988 (CLIA-88) as qualified to perform high complexity clinical laboratory testing. Test performed at [facility], [address] [place] [address] ??[id number] This case has been personally reviewed and interpreted by the attending (teaching) pathologist. Final Diagnosis performed by Joseph Rahman PhD, [facility]. Electronically signed 06/09/2015 [facility] ([facility]) Other (qualifier value) BONE MARROW SPECIMEN / Unknown 06/07/2015 12:05 PM FINANCIAL DIRECTOR 06/07/2015 12:25 PM FINANCIAL DIRECTOR Historical Provider LAB - PATHOLOGY/C YTOLOGY ORDERABLES [facility] ([facility]) * PATHOLOGY TISSUE (06/07/2015 12:05 PM FINANCIAL DIRECTOR) Only the most recent of14 resultswithin the time period is included. Surgical Pathology Tissue FINAL DIAGNOSIS: BONE MARROW ASPIRATE, CORE BIOPSY, AND CLOT SECTION (06/07/15): - ? NORMOCELLULAR BONE MARROW WITH MATURING TRILINEAGE HEMATOPOIESIS - ? NO EVIDENCE OF RECURRENT/RESIDUAL ACUTE MYELOID LEUKEMIA - ? SEE DESCRIPTION PERIPHERAL BLOOD SMEAR: - ? UNREMARKABLE PERIPHERAL BLOOD SMEAR CLINICAL HISTORY: Flow cytometry performed (see [id number]). 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 Pre-Op Diagnosis: AML. Operative Procedure: Bone marrow biopsy and aspirate. CBC Data: WBC: ?7.9 ? 3.5-10.5 10^3/uL RBC: ?4.59 ?3.90-5.00 10^6/uL Hemoglobin: 12.9 ?12.0-15.5 g/dL Hematocrit: 38.5 ?35.0-45.0% MCV: ?83.9 ?81.0-97.0 FL MCH: ?28.1 ?28.0-34.0 PG MCHC: ? 33.5 ?32.0-36.0 G/DL Platelet Ct: ?187 ? 150-400 10^3/uL RDW: ?20.2 ?11.2-14.8% NRBC: ? 0.0 ? 0/100 WBC Seg: ?75.8 ?35.0-70.0% Lymph: ?10.5 ?19.7-55.1% Monocyte: ?? 11.0 ?3.0-15.0% Eosinophil: 2.4 ? 0.0-6.0% Basophil: ?? 0.3 ? 0.0-1.5% SMEAR DESCRIPTION: Peripheral Blood Smear: Review of the peripheral blood smear confirms the CBC data and differential count. ??The white cell counts are within normal limits. ??Leukocytes are small and mature with no circulating blasts identified. ??Red cell counts are within normal limits. ??Red cells demonstrate mild anisocytosis with no significant poikilocytosis. ??Platelet counts and morphology are unremarkable. Bone Marrow Aspirate Smear: Cytomorphologic examination of the bone marrow aspirate smear reveals adequate spicules for evaluation. ??A 200-cell differential shows 51% myeloid lineage cells, 1% blasts, 41% erythroid progenitors, 3.5% lymphocytes, 1% monocytes, 1% plasma cells, and 1.5% eosinophils. ??The M:E ratio is 1.3:1. Myeloid and erythroid lineage cells display a complete spectrum of maturation with no significant dyspoietic features. ??Megakaryocytes are normal in number and in morphology. ??An iron stain of the aspirate smear, with appropriately reactive controls, shows storage and sideroblastic iron. ??No ring sideroblasts are identified. BIOPSY/CLOT: Bone Marrow Core Biopsy and Clot Section: The decalcified bone marrow core biopsy is adequate. ??The bone marrow is normocellular for age, with an average cellularity of approximately 60-70%. ??Myeloid and erythroid lineage cells are present in appropriate proportions and demonstrate a full spectrum of maturation. ??Megakaryocytes are normal in number and in morphology. ??No lymphoid aggregates or granulomas are identified. Concurrent flow cytometry ([id number]) shows no evidence of non-Hodgkin lymphoma or high grade myeloid neoplasm. Overall, the findings show a normocellular bone marrow with maturing trilineage hematopoiesis. ??There is no evidence of the patient's previously diagnosed acute myeloid leukemia or other marrow infiltrative process. ??Correlation with clinical findings and relevant cytogenetic/molecular studies is required. KR/JF/ The performance characteristics of all immunohistochemical and indirect immunofluorescence stains (if any) cited in this report were determined by the Histopathology Laboratory of [facility].?? Some of these tests were developed by our own laboratory and have not been cleared or approved by the US Food and Drug Administration.?The FDA does not require this test to go through premarket FDA review.?These tests are used for clinical purposes. They should not be regarded as investigational or for research.?? This laboratory is certified under the Clinical Laboratory Improvement Amendments (CLIA) as qualified to perform high complexity clinical laboratory testing. This case has been personally reviewed and interpreted by the attending (teaching) pathologist. Final Diagnosis performed by Rosa Mathews MD. Electronically signed 06/08/2015 [facility] ([facility]) Other (qualifier value) BONE MARROW SPECIMEN / Unknown 06/07/2015 12:05 PM FINANCIAL DIRECTOR 06/07/2015 12:25 PM FINANCIAL DIRECTOR Narrative [facility] ([facility]) - 06/08/2015 12:25 PM FINANCIAL DIRECTOR PROBLEM LIST: The problems are not reviewed yet. Please review them in the Problem List activity and refresh this SmartLink. PRE-OP DIAGNOSIS: ??* No surgery found * OPERATIVE PROCEDURE / FINDINGS: ??* No surgery found * POST-OP DIAGNOSIS: * No surgery found * Historical Provider MD LAB - PATHOLOGY/C YTOLOGY ORDERABLES Performing Organization Address [facility] Co de Phone Number [facility] ([facility]) * CYTOGENETICS CANCER PANEL (06/07/2015 12:05 PM FINANCIAL DIRECTOR) Only the most recent of19 resultswithin the time period is included. Pathologist [facility] Chrom SLY-Bone Marrow See scanned report. [facility] REF LAB NON INTERF Bone marrow source (specimen) BONE MARROW SPECIMEN / Unknown 06/07/2015 12:05 PM FINANCIAL DIRECTOR 06/07/2015 12:25 PM FINANCIAL DIRECTOR Historical Provider MD LAB - PATHOLOGY/C YTOLOGY ORDERABLES Performing Organization Address [facility] de Phone Number [facility] REF LAB NON INTERF * CHROMOSOME ANALYSIS PANEL (06/07/2015 12:05 PM FINANCIAL DIRECTOR) Only the most recent of11 resultswithin the time period is included. [facility] Chromosome Analysis FISH See scanned report. [facility] REF LAB NON INTERF Blood specimen (specimen) BONE MARROW SPECIMEN / Unknown 06/07/2015 12:05 PM FINANCIAL DIRECTOR 06/07/2015 12:25 PM FINANCIAL DIRECTOR Historical Provider MD LAB - PATHOLOGY/C YTOLOGY ORDERABLES Performing Organization Address [facility] de Phone Number [facility] REF LAB NON INTERF * FLOW CYTOMETRY PANEL (06/07/2015 12:05 PM FINANCIAL DIRECTOR) Only the most recent of11 resultswithin the time period is included. Pathologist [facility] Flow Cytometry Results THIS IS AN ADDENDUM REPORT Addendum - Read full report Specimen: Bone Marrow Reference: [id number] Reason for test: History of AML Markers: 16 DIAGNOSIS: BONE MARROW, FLOW CYTOMETRIC IMMUNOPHENOTYPIC ANALYSIS: - ? NO EVIDENCE OF NON-HODGKIN LYMPHOMA OR HIGH GRADE MYELOID NEOPLASM - ? SEE DESCRIPTION Flow Cytometry Results: Differential ?Result ?Comment FLOW CELL COUNT/uL ?[id number] %VIABILITY * ? 89 %LYMPHOCYTES ? 6 ?? %MONOCYTES ? 9 %GRANULOCYTES ? 85 Cell Region A: Lymphocytes Surface Marker ?Result (%) ?CD5 ? 24 ? CD10 ? 30 ? CD13 ? 7 ? CD14 ? 2 ? CD19 ? 32 ? CD20 ? 32 ? CD33 ? 13 ? CD34 ? 6 ? CD45 ? 89 ? CD56 ? 21 ? HLA-DR ? 41 ?[place]+CD19+ ? 9 ? Lambda+CD19+ ? 4 ? CD22 ? 40 ? CD15 ? 2 ?CD117 ? 2 Cell Region B: Large cells Surface Marker ?Result (%) ?CD5 ? 2 ? CD10 ? 3 ? CD13 ? 82 ? CD14 ? 74 ? CD19 ? 3 ? CD20 ? 2 ? CD33 ? 90 ? CD34 ? 6 ? CD45 ? 96 ? CD56 ? 11 ? HLA-DR ? 75 ?[place]+CD19+ ? 0 ? Lambda+CD19+ ? 1 ? CD22 ? 1 ? CD15 ? 72 ?CD117 ? 14 Peripheral Blood Lymphocyte Adult Normal Reference Range (%) except CD4/CD8 CD1 ? 0 ? CD24 ?11-19 CD2 ? 74-94 ? CD25 ?5-17 CD3 ? 54-94 ? CD33 ?0-7 CD4 ? 40-56 ? CD34 ?0-3 CD4/CD8 ? (0.7-2.7) ?? CD38 ?15-55 CD5 ? 57-93 ? CD45 ?97-100 CD7 ? 58-82 ? CD56 ?6-26 CD8 ? 17-45 ? CD57 ?0-26 CD10 ?1-9 ? CD117 ? 0 CD11b ? 14-42 ? CD138 ? 0-1 CD11c ? 4-14 ?IgG ? 0-7 CD13 ?0-4 ? IgM ? 4-16 CD14 ?0-11 ?IgA ? 2-6 CD15 ?0-1 ? IgD ? 3-15 CD16 ?0-23 ?[place] ? 3-12 CD19 ?8-24 ?Lambda ?3-7 CD20 ?7-17 ?HLA-DR ?9-25 CD23 ?2-16 ?TdT ? 0 Peripheral Blood Monocyte Region Adult Normal Reference Range (%) CD1 ? 0-2 ? CD24 ?0-28 CD2 ? 0-28 ?CD25 ?5-17 CD3 ? 0-13 ?CD33 ?74-100 CD4 ? 20-100 ?CD34 ?0-5 CD5 ? 0-16 ?CD38 ?65-100 CD7 ? 0-3 ? CD45 ?97-100 CD8 ? 0-16 ?CD56 ?0-18 CD10 ?11-39 ? CD57 ?0-8 CD11b ? 84-100 ?CD117 ? 0-1 CD11c ? 89-100 ?CD138 ? 0-1 CD13 ?63-100 ?IgG ? 46-98 CD14 ?79-99 ? IgM ? 0-15 CD15 ?0-37 ?IgA ? 0-16 CD16 ?0-34 ?IgD ? 0-20 CD19 ?0-48 ?[place] ? 0-6 CD20 ?0-10 ?Lambda ?0-7 CD23 ?0-13 ?HLA-DR ?67-100 TdT ? 0 * The established laboratory minimum viability is 70%. Values below this minimum may result in the failure to find an abnormal population of cells. Test performed at [facility], [address] [place] [address] ??[id number] This test was developed and its performance characteristics determined by The [facility]. It has not been cleared by the U.S. Food and Drug Administration. The FDA has determined that such clearance or approval is not necessary. This test is used for clinical purposes. It should not be regarded as investigational or for research. This laboratory is regulated under the Clinical Laboratory Improvement Amendments of 1998 (CLIA) as qualified to perform high complexity clinical testing. IMMUNOPHENOTYPE AND MORPHOLOGY: Flow cytometry of the bone marrow aspirate demonstrates a flow cell count of 126,000/ul with a viability of 89%. ??6% of cells are within the small lymphocyte region, 9% of cells are within the large mononuclear region, and 85% of cells are within the granulocyte region. ??Within the small lymphocyte region, 24% of cells are T-cells and 21% of cells express the natural killer cell antigen, CD56. ??There is a small population of cells with a maturation pattern consistent with hematogones that comprises approximately 1.8% of all events. ??The mature B-cells are polytypic. ??CD34 is expressed by 6% of cells in this region and CD117 is expressed by 2% of cells in this region. Within the large mononuclear region, the myelomonocytic markers, CD13 and CD33, are expressed by 82% and 90% of cells, respectively. ??By CD34, 0.9% of all flow events analyzed are blasts (0.7% are myeloblasts by CD33/CD34 co-expression). ??CD117 is expressed by 1.4% of all flow events analyzed. Cytomorphologic examination of the bone marrow aspirate smear prepared from the flow cytometry specimen in the [facility] Department of Pathology demonstrates a cellular specimen with rare, small spicules. ??Myeloid and erythroid lineage cells are present with complete maturation. ??There is no significant increase in blasts. Large, atypical cells are not seen. Overall, the combined flow cytometric and cytomorphologic findings are of bone marrow with no evidence of involvement by non-Hodgkin lymphoma or high grade myeloid neoplasm. There is no significant population of cells which co-express dim CD117 and CD15, a phenotype which was present in the patient's initial diagnostic specimen from this institution ([id number]). ??Correlation with clinical information and cytogenetic/molecul ar studies is required. As there is no evidence of bone marrow involvement by residual/recurrent acute myeloid leukemia, the remainder of the specimen has been sent to the [facility] for minimal residual disease (MRD) flow cytometry analysis. The results of MRD testing will be issued as an addendum to this report. MAYRA/SHERRY/ This case has been personally reviewed and interpreted by the attending (teaching) pathologist. Final Diagnosis performed by Rosa Mathews MD. Electronically signed 06/08/2015 ADDENDUM This addendum is issued to report results of minimal residual disease (MRD) testing performed at the [facility], [place], [place]. INTEPRETATION Bone marrow, aspirate: - ? No abnormal myeloid blast, monocyte, or myeloid population identified (see comment). COMMENT There is no immunophenotypic evidence of residual acute myeloid leukemia by flow cytometry. ??Correlation of these findings with morphology is recommended. The prior diagnosis remains unchanged. WINSOME/JULIETA/ Addendum #1 performed by Rosa Mathews MD. Electronically signed 06/09/2015 [facility] ([facility]) Other (qualifier value) BONE MARROW SPECIMEN / Unknown 06/07/2015 12:05 PM FINANCIAL DIRECTOR 06/07/2015 12:25 PM FINANCIAL DIRECTOR Historical Provider LAB - HEMATOLOGY ORDERABLES [facility] ([facility]) * ESTRONE (06/07/2015 8:15 AM FINANCIAL DIRECTOR) Estrone 33 pg/mL [facility] ([facility]) Comment: ?Age ?Male ?Female ? 0 - ??5 years ? 18 - 53 ?19 - ??46 ? 6 - ??7 years ? 17 - 48 ?17 - ??44 ? 8 - ??9 years ? 20 - 54 ?31 - ??70 ?10 - 11 years ? 21 - 49 ?28 - ??68 ?12 - 14 years ? 17 - 44 ?57 - 140 ?Adult ? 12 - 72 ? See below ?Female: Follicular Phase ? 37 - 138 ?Mid-cycle ?60 - 229 ?Luteal Phase ? 50 - 114 ?Post Menopausal ?14 - 103 Blood specimen (specimen) BLOOD SPECIMEN / Unknown 06/07/2015 8:15 AM FINANCIAL DIRECTOR 06/07/2015 8:30 AM FINANCIAL DIRECTOR Narrative [facility] ([place]OT) - 06/09/2015 3:20 PM FINANCIAL DIRECTOR Performed at: ??01 - [address] ??[id number] Student Support Services Director: Ravinder Lucas MD, Phone: ??[phone] Historical Provider LAB - CHEMISTRY O RDERABLES [facility] * (ABNORMAL) TACROLIMUS LEVEL (06/07/2015 8:15 AM FINANCIAL DIRECTOR) Only the most recent of168 resultswithin the time period is included. Tacrolimus, trough 4.0(L) 10.0 - 20.0 ng/mL [facility] Blood specimen (specimen) BLOOD SPECIMEN / Unknown 06/07/2015 8:15 AM FINANCIAL DIRECTOR 06/07/2015 8:29 AM FINANCIAL DIRECTOR Taryn Contreras LAB - THERAPEUTIC DR [place] [address], [facility] [phone] * (ABNORMAL) RBC MORPHOLOGY (06/07/2015 8:15 AM FINANCIAL DIRECTOR) Only the most recent of37 resultswithin the time period is included. Anisocytosis 1+(A) None [facility] Ovalocytes 1+(A) None [facility] Blood specimen (specimen) BLOOD SPECIMEN / Unknown 06/07/2015 8:15 AM FINANCIAL DIRECTOR 06/07/2015 8:39 AM FINANCIAL DIRECTOR Taryn Contreras LAB - HEMATOLOGY ORD ERABLES Performing Organization Address [facility] [place] [address], [facility] [phone] * (ABNORMAL) BCID PANEL (04/19/2015 10:51 AM FINANCIAL DIRECTOR) Pathologist [facility] Staphylococcus Detected(A) Not Detected [facility] Comment: Coagulase-negative staphylococci (CoNS) detected by Verigene nucleic acid test. CoNS are the most common skin contaminants grown in blood cultures and positive results must be interpreted in the appropriate clinical context. Full antimicrobial susceptibility testing to follow. Staphylococcus aureus Not Detected Not Detected [facility] mecA Methicillin Resistance Detected(A) Not Detected [facility] Comment:Please disregard, Me cA should not be reported for Coag Neg Staph. Enterococcus Not Detected Not Detected [facility] Enterococcus faecium Not Detected Not Detected [facility] Streptococcus Not Detected Not Detected [facility] Streptococcus agalactiae (Group B) Not Detected Not Detected [facility] Streptococcus pneumoniae Not Detected Not Detected [facility] Streptococcus pyogenes (Group A) Not Detected Not Detected [facility] Streptococcus anginosus Group Not Detected Not Detected [facility] Listeria monocytogenes Not Detected Not Detected [facility] Blood specimen (specimen) BLOOD SPECIMEN / Unknown 04/19/2015 10:51 AM FINANCIAL DIRECTOR 04/20/2015 9:45 PM FINANCIAL DIRECTOR Narrative [facility] - 04/22/2015 9:31 AM FINANCIAL DIRECTOR Draw 15 minutes after Culture 1 from a different site Note: Verigene testing performed by nucleic acid probe. Results do not exclude the possibility of a mixed bacterial infection. RESULTS CALLED TO AND READ BACK BY Marbella discussed with Dr. Henley AT 9:51 PM, 04/20/2015 [facility] - MICROBIOLOG[facility] O AREN Performing Organization Address [facility] Co de Phone Number [address] [phone] * CULTURE URINE (04/19/2015 10:51 AM FINANCIAL DIRECTOR) Only the most recent of12 resultswithin the time period is included. Culture Urine Less than 10,000 CFU/ML of Normal Urogenital/ Skin [place] [facility] Comment: Urine specimen (specimen) URINE SPECIMEN OBTAINED BY CLEAN CATCH PROCEDURE / Unknown 04/19/2015 10:51 AM FINANCIAL DIRECTOR 04/19/2015 11:43 AM FINANCIAL DIRECTOR Narrative [facility] - 04/21/2015 8:18 AM FINANCIAL DIRECTOR Specimen Type->Urine [facility] LAB - MICROBIOLOGY O AREN Performing Organization Address [facility] Co de Phone Number [address] [phone] * ASPERGILLUS GALACTOMANNAN ANTIGEN BLOOD (04/15/2015 12:13 AM FINANCIAL DIRECTOR) Only the most recent of2 resultswithin the time period is included. Aspergillus galactomannan Antigen 0.05 0.00 - 0.49 Index [facility] (BEAKER) BLOOD SPECIMEN / Unknown 04/15/2015 12:13 AM FINANCIAL DIRECTOR 04/15/2015 12:31 AM FINANCIAL DIRECTOR Narrative [facility] (BEAKER) - 04/19/2015 11:18 AM FINANCIAL DIRECTOR Performed at: ??01 - [facility] [address] ??[id number] Student Support Services Director: Ravinder Lucas MD, Phone: ??[phone] Taryn Contreras LAB - SEROLOGY ORDER SAMY Performing Organization Address City/[facility]/ZIP Co de Phone Number [facility] ([facility]) * CYTOLOGY NON-OFFICER CAPTAIN PANEL (STL) (04/14/2015 11:50 AM FINANCIAL DIRECTOR) Only the most recent of2 resultswithin the time period is included. Cytology Non-Preparation Supervisor Freezing Reference: [id number] Specimen: LUNG, RUL, BRUSH Clinical History: Infiltrates Gross Description: 4 fixed slides Preparation Method: 4 pap stained slides SPECIMEN ADEQUACY: ?- ??SATISFACTORY FOR EVALUATION FINAL DIAGNOSIS: LUNG, RUL, BRUSH: ?- ??REACTIVE ATYPIA (SEE COMMENT) MICROSCOPIC DESCRIPTION: Material reviewed: 4 pap stained slides Review of slides prepared reveals abundant bland bronchial epithelial cells with numerous cells, appearing singly as well as in occasional clusters, with reactive features such as increased nuclear size and chromatin clumping. Scattered pigment-laden macrophages are present. COMMENT(S): These changes may be due to recent chemotherapy, stem-cell transplant, or GVHD. Clinical correlation is required. MS/NW This case has been personally reviewed and interpreted by the attending (teaching) pathologist. Initial Evaluation performed by Jerad DUKES(ASCP). Electronically signed 04/18/2015 Final Diagnosis performed by Fawad Cobb DO. Electronically signed 04/19/2015 [facility] ([facility]) Other (qualifier value) 04/14/2015 11:50 AM FINANCIAL DIRECTOR 04/14/2015 12:42 PM FINANCIAL DIRECTOR Narrative [facility] ([facility]) - 04/19/2015 5:11 PM FINANCIAL DIRECTOR Diagnosis->infiltrates Collection Date->04/14/15 Collection Time->11:50 AM Specimen A->Bronchial [place] RUL Cytobrushings Donovan Ybarra MD LAB - PATHOLOGY/CYTO LOGY ORDERABLES [facility] ([facility]) * CULTURE BRONCHIAL BRUSHINGS QUANT (04/14/2015 11:43 AM FINANCIAL DIRECTOR) Culture Bronch [place] No Growth of >=100 CFU/ml after 48 Hours [facility] Bronchial [place] 04/14/2015 1 1:43 AM FINANCIAL DIRECTOR 04/14/2015 12:27 PM FINANCIAL DIRECTOR Narrative [facility] - 04/16/2015 8:57 AM FINANCIAL DIRECTOR RUL Specimen Type->Bronchial [place] RUL Donovan Ybarra MD LAB - MICROBIOLOGY O RDERABLES Performing Organization Address [facility] de Phone Number [address] [phone] * MANUAL DIFFERENTIAL REVIEWED (04/14/2015 11:42 AM FINANCIAL DIRECTOR) Only the most recent of4 resultswithin the time period is included. Manual Differential Reviewed DIFFERENTIAL REVIEW - CONFIRMED DIFFERENTIAL REVIEW - CONFIRMED [facility] Bronchoalveolar Lavage BRONCHIOLOALVEOLAR LAVAGE / Unknown 04/14/2015 11:42 AM FINANCIAL DIRECTOR 04/14/2015 1:27 PM FINANCIAL DIRECTOR Donovan Ybarra MD LAB - HEMATOLOGY ORD ERABLES Performing Organization Address [facility] Phone Number [address] [phone] * CELL COUNT W DIFFERENTIAL FLUID (04/14/2015 11:42 AM FINANCIAL DIRECTOR) Bronchoalveolar Lavage BRONCHIOLOALVEOLAR LAVAGE / Unknown 04/14/2015 11:[address] [facility] - 04/17/2015 9:20 AM FINANCIAL DIRECTOR The following orders were created for panel order Body fluid cell count with diff. Procedure ? Abnormality ? Status ? --------- ? ------ ? Body fluid cell count wit...[[id number]] ??Abnormal ?Final result ? MANUAL DIFFERENTIAL FLUID[[id number]] ? Final result ? DRAW FRAME OPERATOR REVIEW DIFF LA...[[id number]] ??Normal ?Final result ? Please view results for these tests on the individual orders. Donovan Ybarra MD LAB - BODY FLUID ORD ERABLES Performing Organization Address City/State/[facility] Co de Phone Number [place] [id number] [place] [address], [facility] * VIRAL RESPIRATORY PANEL BY RT-PCR (04/14/2015 11:42 AM FINANCIAL DIRECTOR) Influenza A Negative Negative [facility] (BEAKER) Influenza B Negative Negative [facility] (BEAKER) RSV A Negative Negative [facility] (BEAKER[facility] RSV B Negative Negative [facility] (BEAKER) Parainfluenza 1 Negative Negative [facility] (BEAKER) Parainfluenza 2 Negative Negative [facility] (BEAKER) Parainfluenza 3 Negative Negative [facility] (BEAKER) Rhinovirus Negative Negative [facility] (BEAKER) Metapneumovirus Negative Negative [facility] (BEAKER) Adenovirus Negative Negative [facility] (BEAKER) Bronchoalveolar Lavage BRONCHIOLOALVEOLAR LAVAGE / Unknown 04/14/2015 11:42 AM FINANCIAL DIRECTOR 04/14/2015 12:26 PM FINANCIAL DIRECTOR Narrative [facility] (BEAKER) - 04/19/2015 7:17 AM FINANCIAL DIRECTOR BAL RML Performed at: ??01 - [address] ??[id number] Student Support Services Director: Ravinder Lucas MD, Phone: ??[phone] Donovan Ybarra MD LAB - MICROBIOLOGY O AREN Performing Organization Address City/[facility]/ZIP Co de Phone Number [facility] (SCOT) * CULTURE FUNGUS OTHER+FUNGUS SMEAR (04/14/2015 11:42 AM FINANCIAL DIRECTOR) Only the most recent of3 resultswithin the time period is included. Culture Fungus-Other No Growth Fungi. [facility] Fungus Smear No Fungi or Pneumocystis seen [facility] Bronchial Washings BRONCHIOLOALVEOLAR LAVAGE / Unknown 04/14/2015 11:42 AM FINANCIAL DIRECTOR 04/14/2015 12:27 PM FINANCIAL DIRECTOR Narrative [facility] - 05/16/2015 9:32 AM FINANCIAL DIRECTOR Specimen Type->Bronchial Washings Donovan Ybarra MD LAB - MICROBIOLOGY O AREN Performing Organization Address [facility] Co de Phone Number [address] [phone] * CULTURE AEROBIC (04/14/2015 11:42 AM FINANCIAL DIRECTOR) Only the most recent of2 resultswithin the time period is included. Culture Aerobic Growth of respiratory [place]. [facility] Gram Stain Few Polymorphonuclear Cells [facility] Gram Stain Many Gram Positive bacilli in chains [facility] Gram Stain Many Gram Positive cocci in pairs, chains, and clusters [facility] Gram Stain Few Gram Negative bacilli [facility] Bronchial Washings BRONCHIOLOALVEOLAR LAVAGE / Unknown 04/14/2015 11:42 AM FINANCIAL DIRECTOR 04/14/2015 12:27 PM FINANCIAL DIRECTOR Narrative [facility] - 04/17/2015 9:15 AM FINANCIAL DIRECTOR Specimen Type->Bronchial Washings Gram Stains are routinely screened for the presence of Polymorphonuclear Cells. Donovan Ybarra MD LAB - MICROBIOLOGY O AREN Performing Organization Address [facility]/ZIP Co de Phone Number [address] [phone] * DIFFERENTIAL MANUAL FLUID (04/14/2015 11:42 AM FINANCIAL DIRECTOR) Only the most recent of2 resultswithin the time period is included. Segs % Fluid 1 % [facility] Monocytes % Fluid 1 % [facility] Eosinophils % Fluid 1 % [facility] Macrophages % Fluid 95 % [facility] Pneumocytes % Fluid 2 % [facility] Bronchoalveolar Lavage BRONCHIOLOALVEOLAR LAVAGE / Unknown 04/14/2015 11:42 AM FINANCIAL DIRECTOR 04/14/2015 1:05 PM FINANCIAL DIRECTOR Narrative [facility] - 04/14/2015 1:30 PM FINANCIAL DIRECTOR Many hemosiderin crystals present. No reference ranges established for body fluid differential. Donovan Ybarra MD LAB - BODY FLUID ORD ERABLES Performing Organization Address [facility]/ZIP Co de Phone Number [address] [phone] * CULTURE AFB+SMEAR (04/14/2015 11:42 AM FINANCIAL DIRECTOR) Only the most recent of3 resultswithin the time period is included. Pathologist [facility] Culture Acid Fast Bacilli No Growth of Acid Fast bacilli after 8 weeks. [facility] AFB Smear No Acid Fast bacilli seen on direct smear. [facility] AFB Smear No Acid Fast bacilli seen on concentrated smear. [facility] Bronchial Washings BRONCHIOLOALVEOLAR LAVAGE / Unknown 04/14/2015 11:42 AM FINANCIAL DIRECTOR 04/14/2015 12:27 PM FINANCIAL DIRECTOR Narrative [facility] - 06/12/2015 12:43 PM FINANCIAL DIRECTOR Specimen Type->Bronchial Washings Donovan Ybarra MD LAB - MICROBIOLOGY O RDERABLES [address] [phone] * VIRAL CULTURE MISC (04/14/2015 11:42 AM FINANCIAL DIRECTOR) Viral Culture General No virus isolated. [facility] (BEAKER) Bronchoalveolar Lavage BRONCHIOLOALVEOLAR LAVAGE / Unknown 04/14/2015 11:42 AM FINANCIAL DIRECTOR 04/14/2015 12:27 PM FINANCIAL DIRECTOR Narrative [facility] ([place]) - 04/24/2015 7:07 AM FINANCIAL DIRECTOR BAL RML Specimen Type->Bronchoalveolar Lavage Performed at: ??01 - [facility] [address] ??[id number] Student Support Services Director: Ravinder Lucas MD, Phone: ??[phone] Donovan Ybarra MD LAB - MICROBIOLOGY O RDERALATOYA Performing Organization Address [facility] Co de Phone Number [facility] ([place]) * CULTURE LEGIONELLA (04/14/2015 11:42 AM FINANCIAL DIRECTOR) Culture Legionella No Growth Legionella 1 week. [facility] Bronchial Washings BRONCHIOLOALVEOLAR LAVAGE / Unknown 04/14/2015 11:42 AM FINANCIAL DIRECTOR 04/14/2015 12:27 PM FINANCIAL DIRECTOR Narrative [facility] - 04/21/2015 8:20 AM FINANCIAL DIRECTOR Specimen Type->Bronchial washings Donovan Ybarra MD LAB - MICROBIOLOGY O RDTRAVIS Performing Organization Address [facility] Co de Phone Number [address] [phone] * (ABNORMAL) CELL COUNT FLUID (04/14/2015 11:42 AM FINANCIAL DIRECTOR) Color Fluid Yellow(A) Colorles s, Straw [facility] Clarity Fluid Hazy(A) Clear [facility] Volume Fluid 10.0 mL [facility] WBC Calculation Fluid 1,310 /uL [facility] RBC Calculation 173 /uL [facility] Differential Manual Differential to follow. [facility] Bronchoalveolar Lavage BRONCHIOLOALVEOLAR LAVAGE / Unknown 04/14/2015 11:42 AM FINANCIAL DIRECTOR 04/14/2015 12:27 PM FINANCIAL DIRECTOR Narrative [facility] - 04/14/2015 1:05 PM FINANCIAL DIRECTOR No established reference ranges for WBC and RBC body fluid count. Donovan Ybarra MD LAB - BODY FLUID ORD ERABLES Performing Organization Address [facility]/ZIP Co de Phone Number [address] [phone] * CULTURE BRONCHOALVEOLAR LAVAGE QNT+GRAM STAIN (04/14/2015 11:41 AM FINANCIAL DIRECTOR) Culture Quant-BAL No Growth of >=100 CFU/ml after 48 Hours [facility] Bronchoalveolar Lavage BRONCHIOLOALVEOLAR LAVAGE / Unknown 04/14/2015 11:41 AM FINANCIAL DIRECTOR 04/14/2015 12:27 PM FINANCIAL DIRECTOR Narrative [facility] - 04/16/2015 9:04 AM FINANCIAL DIRECTOR BAL RML Specimen Type->Bronchoalveolar Lavage BAL RML Donovan Ybarra MD LAB - MICROBIOLOGY O [employer] IncTRAVIS Performing Organization Address [facility]/ZIP Co de Phone Number [address] [phone] * GRAM STAIN SMEAR (04/14/2015 11:41 AM FINANCIAL DIRECTOR) Gram Stain Few Polymorphonuclear Cells [facility] Gram Stain No Organism Seen [facility] Bronchoalveolar Lavage BRONCHIOLOALVEOLAR LAVAGE / Unknown 04/14/2015 11:41 AM FINANCIAL DIRECTOR 04/14/2015 12:27 PM FINANCIAL DIRECTOR [facility] - 04/14/2015 2:50 PM FINANCIAL DIRECTOR BAL RML Specimen Type->Bronchoalveolar lavage Gram Stains are routinely screened for the presence of Polymorphonuclear Cells. Donovan Ybarra MD LAB - MICROBIOLOGY O AREN Performing Organization Address [facility] Co de Phone Number [address] [phone] * STREP PNEUMONIAE ANTIGEN URINE/CSF (04/14/2015 6:00 AM FINANCIAL DIRECTOR) Specimen Source Comment [facility] (BEAKER) Comment:Cerebrospinal fluid (CSF) Streptococcus pneumoniae Antigen Negative Negative [facility] (BEAKER) Body Fluid Culture Sterile Comment [facility] (BEAKER) Comment:No growth in 56 - 72 hours. Organism Not indicated. [facility] (BEAKER) Please Note Comment [facility] (BEAKER) Comment: [employer] guidelines require a culture to be performed on CSF specimens negative by bacterial antigen testing ([id number]). 04/14/2015 6:00 AM FINANCIAL DIRECTOR 04/14/2015 6:15 AM FINANCIAL DIRECTOR Narrative [facility] ([place]OT) - 04/20/2015 5:13 PM FINANCIAL DIRECTOR In urine Performed at: ??01 - [facility] [address] ??[id number] Student Support Services Director: Ravinder Lucas MD, Phone: ??[phone] [facility] LAB - MICROBIOLOGY O RDERABLES Performing Organization Address [facility] Co de Phone Number [facility] ([facility]) * HCG URINE QUALITATIVE (04/14/2015 6:00 AM FINANCIAL DIRECTOR) Only the most recent of3 resultswithin the time period is included. Pathologist [facility] Test Urine Negative Negative [facility] Urine specimen (specimen) 04/14/2015 6:00 AM FINANCIAL DIRECTOR 04/14/2015 6:15 AM FINANCIAL DIRECTOR Historical Provider LAB - URINALYSIS ORDERABLES Performing Organization Address [facility] de Phone Number [address] [phone] * HISTOPLASMA GALACTOMANNAN AG URINE (04/14/2015 6:00 AM FINANCIAL DIRECTOR) Urine specimen (specimen) 04/14/2015 6:00 AM FINANCIAL DIRECTOR 04/14/2015 6:15 AM FINANCIAL DIRECTOR [facility] - URINE CHEMISTR Y ORDERABLES Performing Organization Address [facility] Co de Phone Number [address] * HIV-1 HIV-2 ANTIGEN/ANTIBODY (04/14/2015 1:14 AM FINANCIAL DIRECTOR) Only the most recent of2 resultswithin the time period is included. HIV Antigen/Antibod y 1 & 2 Non-reacti ve Non-react mi [facility] Comment: Neither HIV-1 p24 Antigen nor HIV-1/HIV-2 Antibodies are detected. ? Blood specimen (specimen) BLOOD SPECIMEN / Unknown 04/14/2015 1:14 AM FINANCIAL DIRECTOR 04/14/2015 2:14 AM FINANCIAL DIRECTOR Edilma Callahan LAB - HEMATOLOGY ORD ERABLES [facility] [address] [place] [address], [facility] [phone] * CYTOMEGALOVIRUS DNA RT-PCR QUANT (04/14/2015 1:14 AM FINANCIAL DIRECTOR) Only the most recent of26 resultswithin the time period is included. Cytomegalovirus DNA Quantitative PCR Specimen: 1 ml Plasma Reference: [id number] Test: Cytomegalovirus Detection (Quantitative) RESULT Not Detected Reference Range Not Detected INTERPRETATION The quantitative CMV DNA PCR determination was performed and is reported in IU/ml. CMV DNA, if present was below the level of detection. COMMENT The CMV DNA analysis utilized real-time PCR, and is reported as Not Detected/Detected/ IU/ml (quantity), or > 300,000 IU/ml. The analytic sensitivity of the assay is 170 IU/ml (95% of samples with this CMV DNA level were detected however values < 170 IU/ml may be sporadically detected). Specimens with CMV detected but less than 170 IU/ml are reported as Detected (< 170 IU/ml). The linear range is from 170 IU/ml to 300,000 IU/ml. Values greater than 300,000 IU/ml are reported as > 300,000 IU/ml. The detection/quantita tion of CMV DNA in serum, plasma, or urine is based on the isolation of CMV DNA followed by real-time PCR in the presence of a reference standard DNA. The standard ensures that DNA was isolated, and that no general significant inhibitors of the real-time PCR process were present. Absolute CMV values or breakpoints for symptomatic disease have not been established and appear to be different between patient populations and laboratories. Therefore, it is important to monitor patients and to follow rises and/or falls in the level of CMV in multiple blood specimens. This test was developed and its performance characteristics determined by the [facility] Diagnostic Laboratory at [facility]. It has not been cleared or approved by the U.S. Food and Drug Administration. The FDA has determined that such clearance or approval is not necessary. This test is used for clinical purposes. It should not be regarded as investigational or for research. This laboratory is certified under the Clinical Laboratory Improvement Amendments of 1988 (CLIA-88) as qualified to perform high complexity clinical laboratory testing. Test performed at [facility], [address] [place] [address] [place] ??[id number] This case has been personally reviewed and interpreted by the attending (teaching) pathologist. Final Diagnosis performed by Kevin Uribe PHD. Electronically signed 04/14/2015 [facility] ([facility]) Blood specimen (specimen) BLOOD SPECIMEN / Unknown 04/14/2015 1:14 AM FINANCIAL DIRECTOR 04/14/2015 2:14 AM FINANCIAL DIRECTOR Edilma Callahan LAB - MICROBIOLOGY O RDERABLES [facility] ([facility]) * CYTOMEGALOVIRUS ANTIBODY IGM BLOOD (04/14/2015 1:14 AM FINANCIAL DIRECTOR) Only the most recent of3 resultswithin the time period is included. Cytomegalovirus Antibody IgM <30.0 0.0 - 29.9 AU/mL [facility] ([facility]) Comment: ?Negative ? <30.0 ?Equivocal ??30.0 - 34.9 ?Positive ? >34.9 A positive result is generally indicative of acute infection, reactivation or persistent IgM production. Blood specimen (specimen) BLOOD SPECIMEN / Unknown 04/14/2015 1:14 AM FINANCIAL DIRECTOR 04/14/2015 2:14 AM FINANCIAL DIRECTOR Narrative [facility] ([facility]) - 04/18/2015 6:13 AM FINANCIAL DIRECTOR Performed at: ??01 - [facility] [address] ??[id number] Student Support Services Director: Patrice Lopez PhD, Phone: ??[phone] [facility]ylan [facility] LAB - CHEMISTRY MARICARMEN NEW Performing Organization Address [facility] Co de Phone Number [facility] * CYTOMEGALOVIRUS ANTIBODY IGG BLOOD (04/14/2015 1:14 AM FINANCIAL DIRECTOR) Only the most recent of3 resultswithin the time period is included. Pathologist [facility] Cytomegalovirus Antibody IgG <0.60 0.00 - 0.59 U/mL [facility] ([facility]) Comment: ? Negative ?<0.60 ? Equivocal ?? 0.60 - 0.69 ? Positive ?>0.69 Blood specimen (specimen) BLOOD SPECIMEN / Unknown 04/14/2015 1:14 AM FINANCIAL DIRECTOR 04/14/2015 2:14 AM FINANCIAL DIRECTOR Narrative [facility] ([facility]) - 04/17/2015 9:11 AM FINANCIAL DIRECTOR Performed at: ??01 - [facility] [address] ??[id number] Student Support Services Director: Patrice Lopez PhD, Phone: ??[phone] Edilma Hidalgo LAB - CHEMISTRY MARICARMEN NEW Performing Organization Address City/[facility]/ZIP Co de Phone Number [facility] ([facility]) * TYPE + SCREEN PANEL (04/14/2015 1:14 AM FINANCIAL DIRECTOR) Only the most recent of9 resultswithin the time period is included. Typem O POS [facility] LAB Antibody Screen NEG [facility] Blood specimen (specimen) BLOOD SPECIMEN / Unknown 04/14/2015 1:14 AM FINANCIAL DIRECTOR 04/14/2015 1:53 AM FINANCIAL DIRECTOR Edilma FirstRainmanuelaRadico LAB - BLOOD BANK ORD ERABLES Performing Organization Address [facility] Co de Phone Number [facility] LAB [address] * (ABNORMAL) PT-INR [facility] (04/13/2015 1:01 AM FINANCIAL DIRECTOR) Only the most recent of48 resultswithin the time period is included. PT 10.9(L) 12.1 - 14.8 Seconds [facility] INR 0.8 See Comment [facility] Comment: Suggested therapeutic range for low-intensity coumadin therapy for venous thromboembolism prophylaxis is an INR of 2.0-3.0. ??For high risk patients (Mitral Valve Prosthesis, Atrial Fibrillation, history of TIA/stroke), suggested prophylactic therapeutic range is an INR of 2.5-3.5. Blood specimen (specimen) BLOOD SPECIMEN / Unknown 04/13/2015 1:01 AM FINANCIAL DIRECTOR 04/13/2015 1:07 AM FINANCIAL DIRECTOR Narrative [facility] - 04/13/2015 1:24 AM FINANCIAL DIRECTOR Is patient on Heparin, Argatroban or Dabigatran?->Y Additional Information->Lovenex 40 mg daily, but holding am dose. Edilma FirstRainshirley LAB - COAGULATION OR DERABLES Performing Organization Address [facility] Co de Phone Number [address] [phone] * LEAD BLOOD (04/12/2015 4:18 PM FINANCIAL DIRECTOR) Lead, Blood (Adult) 1 0 - 19 ug/dL [facility] ([facility]) Comment: ?Environmental Exposure: ? WHO Recommendation ?<20 ?Occupational Exposure: ? OSHA Lead Std ?40 ? BIANCA ?30 ?Detection Limit = ??1 Blood specimen (specimen) BLOOD SPECIMEN / Unknown 04/12/2015 4:18 PM FINANCIAL DIRECTOR 04/12/2015 4:32 PM FINANCIAL DIRECTOR Narrative [facility] ([facility]) - 04/18/2015 1:17 PM FINANCIAL DIRECTOR Performed at: ??01 - [facility] [address] ??[id number] Student Support Services Director: Patrice Lopez PhD, Phone: ??[phone] Edilma Callahan LAB - CHEMISTRY MARICARMEN NEW [facility] ZEKE) * COMPLETE PFT W/WO BRONCHODILATOR (04/12/2015 3:29 PM FINANCIAL DIRECTOR) Impressions [facility] RADI[facility] - 04/12/2015 3:29 PM FINANCIAL DIRECTOR [facility] DEPARTMENT OF PULMONARY, CRITICAL CARE, AND SLEEP MEDICINE PULMONARY FUNCTION TESTS Cristina Pacheco 04/12/2015 INTERPRETATION Please see technologist's comments mentioned above. SPIROMETRY: Forced vital capacity is decreased. ?? FEV1 is decreased. ?? FEV1/FVC ratio is normal. There is no significant response to bronchodilator administration. The inspection of the patient's flow-volume loops shows normal configuration of the inspiratory and expiratory limbs. LUNG VOLUMES: Lung volumes by body plethysmography show decreased TLC and normal RV. DLCO: Diffusing capacity adjusted for Hb (CBC 04/11/2015) and unadjusted COHb is decreased. AIRWAY RESISTANCE: The airway resistance and the specific conductance are normal. IMPRESSION: 1. Mild restrictive ventilatory limitation. 2. There is no significant response to bronchodilator administration. ??This does not preclude the use of bronchodilator therapy if clinically indicated. 3. Mild reduction in diffusion capacity adjusted for hemoglobin. 4. Compared to the study dated 12/28/2014, there is no significant change in FVC, FEV1, TLC, or DLCO. Maximilian Maya MD I have personally reviewed the test and agreed with the interpretation. Reno Barton M.D., [facility] Narrative Procedure Note Provider, MD Jose - 10/10/2017 IMPRESSION [facility] DEPARTMENT OF PULMONARY, CRITICAL CARE, AND SLEEP MEDICINE PULMONARY FUNCTION TESTS Cristina Pacheco 04/12/2015 INTERPRETATION Please see technologist's comments mentioned above. SPIROMETRY: Forced vital capacity is decreased. FEV1 is decreased. FEV1/FVC ratio is normal. There is no significant response to bronchodilator administration. The inspection of the patient's flow-volume loops shows normal configuration of the inspiratory and expiratory limbs. LUNG VOLUMES: Lung volumes by body plethysmography show decreased TLC and normal RV. DLCO: Diffusing capacity adjusted for Hb (CBC 04/11/2015) and unadjusted COHb is decreased. AIRWAY RESISTANCE: The airway resistance and the specific conductance are normal. IMPRESSION: 1. Mild restrictive ventilatory limitation. 2. There is no significant response to bronchodilator administration. This does not preclude the use of bronchodilator therapy if clinically indicated. 3. Mild reduction in diffusion capacity adjusted for hemoglobin. 4. Compared to the study dated 12/28/2014, there is no significant change in FVC, FEV1, TLC, or DLCO. Maximilian Maya MD I have personally reviewed the test and agreed with the interpretation. Reno Barton M.D., [facility] RESPIRATORY THERAPY ORDERABLES [facility] RADI[facility] * ALDOSTERONE BLOOD (04/12/2015 8:49 AM FINANCIAL DIRECTOR) Aldosterone <1.0 0.0 - 30.0 ng/dL [facility] (BEAKER) Blood specimen (specimen) BLOOD SPECIMEN / Unknown 04/12/2015 8:49 AM FINANCIAL DIRECTOR 04/12/2015 9:03 AM FINANCIAL DIRECTOR Narrative [facility] - 04/17/2015 8:10 AM FINANCIAL DIRECTOR Used the same blood as for the cortisol level this Am, post 30 minutes. Performed at: ??01 - [address] ??[id number] Student Support Services Director: Ravinder Lucas MD, Phone: ??[phone] Edilma [facility] LAB - CHEMISTRY MARICARMEN NEW Performing Organization Address [facility] Co de Phone Number [facility] * FRUCTOSAMINE (04/11/2015 11:59 PM FINANCIAL DIRECTOR) Pathologist [facility] Fructosamine 137 0 - 285 umol/L [facility] Comment: Published reference interval for apparently healthy subjects between age 20 and 60 is 205 - 285 umol/L and in a poorly controlled diabetic population is 228 - 563 umol/L with a mean of 396 umol/L. Blood specimen (specimen) BLOOD SPECIMEN / Unknown 04/11/2015 11:59 PM FINANCIAL DIRECTOR 04/12/2015 12:35 AM FINANCIAL DIRECTOR Narrative [facility] - 04/13/2015 6:16 AM FINANCIAL DIRECTOR Performed at: ??01 - [address] ??[id number] Student Support Services Director: Patrice Lopez PhD, Phone: ??[phone] Edilma [facility] LAB - CHEMISTRY TERENCEMiryam VILLELACAREY Performing Organization Address [facility] Co de Phone Number [facility] * INFLUENZA A+B PCR (04/05/2015 9:31 AM FINANCIAL DIRECTOR) Only the most recent of4 resultswithin the time period is included. Pathologist [facility] Influenza A Non subtyped Not Detected Not Detected [facility] Influenza B Not Detected Not Detected [facility] Respiratory Syncytial Virus Not Detected Not Detected [facility] RSV B Not Detected Not Detected [facility] Nasopharyngeal NASOPHARYNGEAL SWAB / Unknown 04/05/2015 9:31 AM FINANCIAL DIRECTOR 04/05/2015 9:41 AM FINANCIAL DIRECTOR Narrative [facility] - 04/05/2015 1:26 PM FINANCIAL DIRECTOR Assay performed by Nucleic Acid Amplification. Results do not exclude the possibility of a mixed viral infection. NOTE: ??Negative results for Influenza A, Influenza B or RSV do not preclude influenza virus or RSV infection and should not be used as the sole basis for diagnosis, treatment or patient management decisions. Taryn Contreras LAB - MICROBIOLOGY O RDERABLES [facility] [address] [phone] * LAB MISC TEST (04/05/2015 9:31 AM FINANCIAL DIRECTOR) Only the most recent of12 resultswithin the time period is included. [facility] Reference Lab Results SEE SCANNED REPORT [facility] REF LAB NON INTERF Other (qualifier value) 04/05/2015 9:31 AM FINANCIAL DIRECTOR 04/05/2015 9:44 AM FINANCIAL DIRECTOR Narrative [facility] REF LAB NON INTERF - 04/10/2015 12:57 PM FINANCIAL DIRECTOR Test Name:->RVP ??PCR REFRIG VIRAL TRANSPORT - NASAL Reference Lab Info:->[facility]UP ??[id number] Angelica Watson MD LAB SEND OUT Performing Organization Address City/[facility]/ZIP Co de Phone Number [facility] REF LAB NON INTERF * INFLUENZA A+B ANTIGEN RAPID (04/05/2015 9:30 AM FINANCIAL DIRECTOR) Only the most recent of4 resultswithin the time period is included. [facility] Influenza A Rapid Test Negative Negative [facility] Influenza B Rapid Test Negative Negative [facility] Nasopharyngeal SPECIMEN FROM NASOPHARYNGEAL STRUCTURE / Unknown 04/05/2015 9:30 AM FINANCIAL DIRECTOR 04/05/2015 9:41 AM FINANCIAL DIRECTOR Narrative [facility] - 04/05/2015 10:29 AM FINANCIAL DIRECTOR Specimen Type->Nasopharyngeal If clinical conditions warrant, molecular testing for Influenza offers superior sensitivity (>98%) and is available by ordering INFLUENZA/RSV LOGAN [[id number]]. ??To add to current sample within [address] an electronic or signed manual requisition order and call the [facility] at [phone] with your request. ?? The positive and negative predictive values of rapid influenza testing vary considerably depending upon the prevalence on influenza in the community. *False-positive results are more likely to occur when disease prevalence is low. *False-negative results are more likely to occur when disease prevalence is high. *Current local influenza prevalence can be obtained by calling the Director of Microbiology at [phone]. Taryn Contreras LAB - MICROBIOLOGY O AREN [address] [phone] * (ABNORMAL) DRUG ABUSE PANEL 10-20+ETHANOL URINE NO CONFIRM (03/29/2015 11:23 AM FINANCIAL DIRECTOR) Only the most recent of3 resultswithin the time period is included. Amphetamines Screen Urine Negative Negative : < 1000 ng/mL [facility] Barbiturates Screen Urine Negative Negative : < 200 ng/mL [facility] Benzodiazepine Screen Urine Positive(A) Negative : < 200 ng/mL [facility] Comment: Positive urine benzodiazepine screening results should be confirmed by another generally accepted non-immunological method such as gas chromatography or mass spectrometry. ? Opiates Urine Negative Negative : < 300 ng/mL [facility] Cocaine Metabolites Urine Negative Negative : < 300 ng/mL [facility] Phencyclidine Screen Urine Negative Negative : < 25 ng/ml [facility] Cannabinoids Screen Urine Negative Negative : <50 ng/mL [facility] Methadone Screen Urine Negative Negative : < 300 ng/mL [facility] Urine specimen (specimen) BLOOD SPECIMEN / Unknown 03/29/2015 11:23 AM FINANCIAL DIRECTOR 03/29/2015 11:40 AM FINANCIAL DIRECTOR Narrative [facility] - 03/29/2015 12:43 PM FINANCIAL DIRECTOR The Urine Toxicology Screening Panel does not screen for Propoxyphene, Meprobamate, Carisoprodol, Trazodone, geql-[id number] medications and/or volatiles (Acetone, Isopropanol, Methanol or Ethylene Glycol). Ethanol, Salicylate, Acetaminophen, Tricyclic Antidepressants and several therapeutic drugs may be individually assayed in serum or plasma specimen. Toxicology testing by the [facility] Laboratory is an aid to medical diagnosis and treatment of patients. No documented chain of custody was maintained. Results are intended to be used for clinical purposes only. ? Edilma Callahan LAB - URINE CHEMISTR Y ORDERABLES Performing Organization Address City/State/[facility] Co de Phone Number [address] [phone] * HEPATITIS C RNA QUANTITATIVE PCR (03/29/2015 11:23 AM FINANCIAL DIRECTOR) Only the most recent of2 resultswithin the time period is included. Hepatitis C Virus RNA PCR Specimen: 1 ml Serum Reference: [id number] Test: Hepatitis C RT-PCR (Quantitative) RESULT Not Detected Reference Range Not Detected INTERPRETATION The quantitative Hepatitis C viral RNA RT-PCR determination was performed on a serum sample and is reported in IU/ml. Hepatitis C viral RNA was not detected. COMMENT The Hepatitis C viral (HCV) RNA analysis utilized a serum sample, real-time reverse paint pourer PCR, and is reported as Not Detected, [...] the isolation of HCV RNA with reverse paint pourer of genomic HCV RNA followed by real-time PCR in the presence of an unrelated RNA internal control. The internal control ensures that RNA is isolated, and that no general significant inhibitors of the RT-PCR process are present. This analysis was performed using an [place] FDA approved test methodology (OOgave RealTime HCV). Test performed at [facility], [address] [place] [address] ??[id number] This case has been personally reviewed and interpreted by the attending (teaching) pathologist. Final Diagnosis performed by Kevin Uribe PHD. Electronically signed 04/07/2015 [facility] ([facility]) Blood specimen (specimen) BLOOD SPECIMEN / Unknown 03/29/2015 11:23 AM FINANCIAL DIRECTOR 03/29/2015 11:40 AM FINANCIAL DIRECTOR Patymazin Callahan LAB - CHEMISTRY MARICARMEN NEW [facility] PATHOLOGY LAB ([facility]) * HEPATITIS B QUANT PCR (03/29/2015 11:23 AM FINANCIAL DIRECTOR) Hepatitis B Virus DNA (IU/mL) <20 IU/mL [facility] ([facility]) Hepatitis B Virus DNA (Log IU/mL) <1.3 log IU [facility] ([facility]) Comment: INTERPRETIVE INFORMATION: Hepatitis B Virus by Quantitative PCR The quantitative range of this assay is 1.3-8.2 log IU/mL (20-170,000,000 IU/mL). 1 IU/mL of HBV DNA is approximately 5.82 copies/mL. This assay should not be used for blood donor screening, associated re-entry protocols, or for screening Human Cell, Tissues and Cellular Tissue-Based Products (HCT/P). Interpretation Hepatitis B Virus DNA Not Detected Not Detected [facility] ([facility]) Blood specimen (specimen) BLOOD SPECIMEN / Unknown 03/29/2015 11:23 AM FINANCIAL DIRECTOR 03/29/2015 11:40 AM FINANCIAL DIRECTOR Edilma Callahan LAB - CHEMISTRY MARICARMEN NEW Performing Organization Address City/[facility]/ZIP Co de Phone Number [facility] ([facility]) * T3 FREE (03/08/2015 12:59 PM FINANCIAL DIRECTOR) Only the most recent of2 resultswithin the time period is included. T3 Free 2.6 1.7 - 3.7 pg/mL [facility] Blood specimen (specimen) BLOOD SPECIMEN / Unknown 03/08/2015 12:59 PM FINANCIAL DIRECTOR 03/08/2015 1:11 PM FINANCIAL DIRECTOR Edilma [employer] - CHEMISTRY MARICARMEN NEW Performing Organization Address [facility] Co de Phone Number [address] [phone] * (ABNORMAL) CREATININE BLOOD (03/08/2015 12:59 PM FINANCIAL DIRECTOR) Only the most recent of2 resultswithin the time period is included. [facility] Creatinine 1.1 0.6 - 1.2 mg/dL [facility] eGFR 60(L) >60 mL/min/1.73 m2 [facility] Blood specimen (specimen) BLOOD SPECIMEN / Unknown 03/08/2015 12:59 PM FINANCIAL DIRECTOR 03/08/2015 1:11 PM FINANCIAL DIRECTOR [facility]ma [facility] - CHEMISTRY MARICARMEN NEW Performing Organization Address [facility] Co de Phone Number [address] [phone] * CULTURE STOOL+ E COLI SHIGA-LIKE TOXIN (01/24/2015 2:53 PM CDT) Only the most recent of2 resultswithin the time period is included. Culture Feces No Salmonella, Shigella, Yersinia, Campylobacter or Escherichia Coli 0157:H7 isolated. Unable to perform Shiga toxin due to absence of fecal organisms. [facility] Stool specimen (specimen) 01/24/2015 2:53 PM CDT 01/24/2015 3:03 PM CDT Narrative [facility] - 01/27/2015 9:30 AM CDT Positive C.diff Specimen Type->Stool Patydylan [employer] LAB - MICROBIOLOGY O RDERABLES Performing Organization Address [facility] Co de Phone Number [address] [phone] * SLY BLOOD SCREEN (01/24/2015 12:48 PM CDT) Only the most recent of2 resultswithin the time period is included. SLY None Detected None Detected [facility] Venous blood specimen (specimen) 01/24/2015 12:48 PM CDT 01/24/2015 1:03 PM CDT [facility]ri[facility] LAB - CHEMISTRY MARICARMEN MANOHARCAREY Performing Organization Address [facility] de Phone Number [address] [phone] * (ABNORMAL) C-REACTIVE PROTEIN (01/24/2015 5:21 AM CDT) Pathologist [facility] C-Reactive Protein 1.0(H) <=0.5 mg/dL [facility] Blood specimen (specimen) BLOOD SPECIMEN / Unknown 01/24/2015 5:21 AM CDT 01/24/2015 5:38 AM CDT [employer] LAB - CHEMISTRY MARICARMEN VIRGEN Performing Organization Address [facility] Co de Phone Number [address] [phone] * SMOOTH MUSCLE ANTIBODY (01/24/2015 5:21 AM CDT) F-Actin Antibody IgG 7.8 0.0 - 19.9 Units [facility] Comment: F-Actin Antibody Numeric Result Interpretation: ?<20.0 Units: ??Negative ?20.0 - 30.0 Units: ??Weak Positive ?>30.0 Units: ??Moderate to Strong Positive ? Blood specimen (specimen) BLOOD SPECIMEN / Unknown 01/24/2015 5:21 AM CDT 01/24/2015 5:[address]T [employer] LAB - SEROLOGY ORDER SAMY Performing Organization Address [facility]/ZIP Co de Phone Number [address] [phone] * (ABNORMAL) ERYTHROCYTE SEDIMENTATION RATE (01/24/2015 5:21 AM CDT) Pathologist [facility] Erythrocyte Sedimentation Rate Westergren 30(H) 0 - 20 MM/HR [facility] Blood specimen (specimen) BLOOD SPECIMEN / Unknown 01/24/2015 5:21 AM CDT 01/24/2015 5:[address] [employer] LAB - HEMATOLOGY ORD ERABLES Performing Organization Address [facility] de Phone Number [address] [phone] * HEPATITIS B CORE ANTIBODY (01/24/2015 5:21 AM CDT) Only the most recent of2 resultswithin the time period is included. HBc Antibody Total Non-reacti ve Non-reacti ve [facility] Blood specimen (specimen) BLOOD SPECIMEN / Unknown 01/24/2015 5:21 AM CDT 01/24/2015 5:[address]T [employer] LAB - CHEMISTRY ORDE RABLES Performing Organization Address [facility] Co de Phone Number [address] [phone] * HEPATITIS B SURFACE ANTIGEN W RFLX CONFIRMATION (01/24/2015 5:21 AM CDT) Only the most recent of2 resultswithin the time period is included. Hepatitis B Virus Surface Antigen Non-reacti ve Non-reacti ve [facility] Blood specimen (specimen) BLOOD SPECIMEN / Unknown 01/24/2015 5:21 AM CDT 01/24/2015 5:38 AM CDT Edilma Silveirashirley LAB - CHEMISTRY MARICARMEN NEW Performing Organization Address City/[facility]/ZIP Co de Phone Number [address] [phone] * FOLATE (01/24/2015 5:21 AM CDT) Only the most recent of3 resultswithin the time period is included. Pathologist [facility] Folate 14.2 7.0 - 31.4 ng/mL [facility] Blood specimen (specimen) BLOOD SPECIMEN / Unknown 01/24/2015 5:21 AM CDT 01/24/2015 6:48 AM CDT Juanito Pimentel MD LAB - CHEMISTRY MARICARMEN NEW Performing Organization Address [facility] Co de Phone Number [address] [phone] * VITAMIN B12 (01/24/2015 5:21 AM CDT) Only the most recent of3 resultswithin the time period is included. Pathologist [facility] Vitamin B12 651 213 - 816 pg/mL [facility] Blood specimen (specimen) BLOOD SPECIMEN / Unknown 01/24/2015 5:21 AM CDT 01/24/2015 6:48 AM CDT Juanito Pimentel MD LAB - CHEMISTRY MARICARMEN NEW Performing Organization Address City/[facility]/ZIP Co de Phone Number [address] [phone] * HEPATITIS C ANTIBODY (01/24/2015 5:21 AM CDT) Only the most recent of2 resultswithin the time period is included. Pathologist [facility] Hepatitis C Antibody Non-react mi Non-reac tive [facility] Comment: Hepatitis C Antibody screen indicates no serologic evidence of past or current infection with Hepatitis C Virus. Patients with unexplained liver disease who are immunocompromised or suspected of having acute Hepatitis C infection may benefit from Nucleic Acid Test (TANISHA) for Hepatitis C Viral RNA to confirm Hepatitis C status. Blood specimen (specimen) BLOOD SPECIMEN / Unknown 01/24/2015 5:21 AM CDT 01/24/2015 5:38 AM CDT Edilma Callahan LAB - CHEMISTRY MARICARMEN NEW Performing Organization Address [facility]/ZIP Co de Phone Number [address] [phone] * HAPTOGLOBIN (01/24/2015 5:10 AM CDT) Only the most recent of8 resultswithin the time period is included. Haptoglobin 217 14 - 258 mg/dL [facility] Blood specimen (specimen) BLOOD SPECIMEN / Unknown 01/24/2015 5:10 AM CDT 01/24/2015 7:04 AM CDT Juanito Pimentel MD LAB - CHEMISTRY MARICARMEN NEW Performing Organization Address [facility] Co de Phone Number [address] [phone] * PTT SLU (01/23/2015 11:54 AM CDT) Only the most recent of57 resultswithin the time period is included. APTT 37.1 23.0 - 38.4 Seconds [facility] Comment:Suggested therapeuti c range for full dose I.V. heparin therapy for venous thromboembolism is 66.0-91.0 seconds. Blood specimen (specimen) BLOOD SPECIMEN / Unknown 01/23/2015 11:54 AM CDT 01/23/2015 12:09 PM CDT Narrative [facility] - 01/23/2015 12:34 PM CDT Is patient on Heparin, Argatroban or Dabigatran?->N Juanito Pimentel MD LAB - COAGULATION OR DERABLES Performing Organization Address [facility] Co de Phone Number [address] [phone] * (ABNORMAL) CLOSTRIDIUM DIFFICILE GD AG + TOXIN A+B (01/22/2015 4:57 PM CDT) Only the most recent of8 resultswithin the time period is included. C difficile Antigen Positive(A) Negative [facility] C difficile Toxin Negative Negative [facility] Stool specimen (specimen) STOOL SPECIMEN / Unknown 01/22/2015 4:57 PM CDT 01/22/2015 5:03 PM CDT Narrative [facility] - 01/23/2015 12:06 PM CDT Specimen Type->Stool Assay Indeterminate. ?? Confirmatory Molecular Testing in progress. Cristina Zurita APRN-[employer] [facility] LAB - MICROBIOL OGY ORDERABLES Performing Organization Address [facility] Co de Phone Number [address] [phone] * (ABNORMAL) CLOSTRIDIUM DIFFICILE BY PCR (01/22/2015 4:57 PM CDT) C difficile LOGAN Positive(A ) Negative [facility] Comment:RESULTS CALLED TO AN D READ BACK BY Marguerite AT 1:21 PM, 01/23/2015 Stool specimen (specimen) STOOL SPECIMEN / Unknown 01/22/2015 4:57 PM CDT 01/23/2015 12:06 PM CDT Narrative [facility] - 01/23/2015 1:22 PM CDT POSITIVE: ??Clostridium Difficile Toxin Gene DETECTED by Nucleic Acid Amplification Testing. Patient MUST be placed on Contact Isolation Precautions. Results from this test should be interpreted in conjunction with other Laboratory and Clinical Data. Cristina Zurita APRN-[employer] [facility] LAB - MICROBIOL OGY ORDERABLES Performing Organization Address [facility] [place] [address], [facility] [phone] * XR SACRUM AND COCCYX (12/28/2014 1:00 PM CDT) Anatomical Region Laterality Modality Spine Other Impressions 12/29/2014 8:28 AM CDT Impression: 1. No acute osseous abnormality in the lumbar spine or sacrum/coccyx. 2. Multiple bone marrow biopsy sites in the sacrum, right greater than left This report was electronically signed by EZEKIEL MABRY MD ??on 12/29/2014 8:28 AM . Narrative 12/29/2014 8:28 AM CDT Exam: 1. XR SPINE LUMBAR 2 OR 3 VW, 2. XR SACRUM AND COCCYX 2 VW MIN History: ??chronic pain Comparison: None available. Findings: Lumbar spine: The lumbar lordosis is normal. There is no fracture or subluxation. There is mild disc space narrowing at L5-S1. Minimal levocurvature could be positional. The facet joints are normal. Bone mineralization is normal. Numerous circular lucencies are present in the right sacral ala and one or 2 are present along the left sacroiliac joint representing bone biopsy sites. Sacrum and coccyx There is no displaced sacral or coccygeal fracture. Bone mineralization is normal. Biopsy defects are present in the sacroiliac regions bilaterally. Procedure Note Ezekiel Mabry MD - 08/02/2017 Exam: 1. XR SPINE LUMBAR 2 OR 3 VW, 2. XR SACRUM AND COCCYX 2 VW MIN History: chronic pain Comparison: None available. Findings: Lumbar spine: The lumbar lordosis is normal. There is no fracture or subluxation. Thereis mild disc space narrowing at L5-S1. Minimal levocurvature could bepositional. The facet joints are normal. Bone mineralization is normal.Numerous circular lucencies are present in the right sacral ala and one or 2 are present along the leftsacroiliac joint representing bone biopsy sites. Sacrum and coccyx There is no displaced sacral or coccygeal fracture. Bone mineralization isnormal. Biopsy defects are present in the sacroiliac regionsbilaterally. IMPRESSION Impression: 1. No acute osseous abnormality in the lumbar spine or sacrum/coccyx. 2. Multiple bone marrow biopsy sites in the sacrum, right greater thanleft This report was electronically signed by EZEKIEL MABRY MD on 12/29/20148:28 AM . Stewart Kenney MD DIAGNOSTIC IMAGING O RDERABLES * XR LUMBAR SPINE 2 OR 3VW (12/28/2014 12:55 PM CDT) Anatomical Region Laterality Modality Spine Other Impressions 12/29/2014 8:28 AM CDT Impression: 1. No acute osseous abnormality in the lumbar spine or sacrum/coccyx. 2. Multiple bone marrow biopsy sites in the sacrum, right greater than left This report was electronically signed by EZEKIEL MABRY MD ??on 12/29/2014 8:28 AM . Narrative 12/29/2014 8:28 AM CDT Exam: 1. XR SPINE LUMBAR 2 OR 3 VW, 2. XR SACRUM AND COCCYX 2 VW MIN History: ??chronic pain Comparison: None available. Findings: Lumbar spine: The lumbar lordosis is normal. There is no fracture or subluxation. There is mild disc space narrowing at L5-S1. Minimal levocurvature could be positional. The facet joints are normal. Bone mineralization is normal. Numerous circular lucencies are present in the right sacral ala and one or 2 are present along the left sacroiliac joint representing bone biopsy sites. Sacrum and coccyx There is no displaced sacral or coccygeal fracture. Bone mineralization is normal. Biopsy defects are present in the sacroiliac regions bilaterally. Procedure Note Ezekiel Mabry MD - 08/02/2017 Exam: 1. XR SPINE LUMBAR 2 OR 3 VW, 2. XR SACRUM AND COCCYX 2 VW MIN History: chronic pain Comparison: None available. Findings: Lumbar spine: The lumbar lordosis is normal. There is no fracture or subluxation. Thereis mild disc space narrowing at L5-S1. Minimal levocurvature could bepositional. The facet joints are normal. Bone mineralization is normal.Numerous circular lucencies are present in the right sacral ala and one or 2 are present along the leftsacroiliac joint representing bone biopsy sites. Sacrum and coccyx There is no displaced sacral or coccygeal fracture. Bone mineralization isnormal. Biopsy defects are present in the sacroiliac regionsbilaterally. IMPRESSION Impression: 1. No acute osseous abnormality in the lumbar spine or sacrum/coccyx. 2. Multiple bone marrow biopsy sites in the sacrum, right greater thanleft This report was electronically signed by EZEKIEL MABRY MD on 12/29/20148:28 AM . Stewart Kenney MD DIAGNOSTIC IMAGING O RDERABLES * PFT-LAB (12/28/2014 12:40 PM CDT) Impressions [facility] - 12/28/2014 12:40 PM CDT [facility] DEPARTMENT OF PULMONARY, CRITICAL CARE, AND SLEEP MEDICINE PULMONARY FUNCTION TESTS Cristina Vincent 29 y.o. BMI 39. 12/28/2014 INTERPRETATION Please see technologist's comments mentioned above. SPIROMETRY: Forced vital capacity is reduced. ?FEV1 is reduced. ?FEV1/FVC ratio is normal. There is no significant response to bronchodilator administration. Inspection of the patient's flow-volume loops shows normal configuration of the inspiratory and expiratory limbs. LUNG VOLUMES: Lung volumes by body plethysmography revealed a reduced TLC and ERV. DLCO: Diffusing capacity adjusted for Hb is reduced. AIRWAY RESISTANCE: The airway resistance is increased and the specific conductance is decreased. These values are within normal limits after bronchodilator administration. ARTERIAL BLOOD GAS was not drawn. IMPRESSION: 1. ??Mild restrictive ventilatory limitation. 2. ??There is no significant response to bronchodilator aministration. ??This does not preclude the use of bronchodilator therapy if clinically indicated. 3. Mild reduction in DLCO adjusted for Hb. 4. In comparison to prior study on 09/12/2014, there has been a significant: 460 mL decrease in FEV1, a 540 mL decrease in FVC and 6.66 ml/min/mmHg decrease in DLCO. NO significant change was noted in TLC. Yanira Rodriguez MD Pulmonary / Critical Care Fellow Division of Pulmonary, Critical Care, & Sleep Medicine [facility] Pager: [phone] ATTENDING PHYSICIAN ATTESTATION/WARREN OVERTON M.D.: I have personally reviewed and interpreted the above test and I have made the necessary changes if needed to the above interpretation. ?? Narrative Procedure Note Provider, MD Jose - 10/10/2017 IMPRESSION [facility] DEPARTMENT OF PULMONARY, CRITICAL CARE, AND SLEEP MEDICINE PULMONARY FUNCTION TESTS Cristina Herring Vincent 29 y.o. BMI 39. 12/28/2014 INTERPRETATION Please see technologist's comments mentioned above. SPIROMETRY: Forced vital capacity is reduced. FEV1 is reduced. FEV1/FVC ratio is normal. There is no significant response to bronchodilator administration. Inspection of the patient's flow-volume loops shows normal configuration of the inspiratory and expiratory limbs. LUNG VOLUMES: Lung volumes by body plethysmography revealed a reduced TLC and ERV. DLCO: Diffusing capacity adjusted for Hb is reduced. AIRWAY RESISTANCE: The airway resistance is increased and the specific conductance is decreased. These values are within normal limits after bronchodilator administration. ARTERIAL BLOOD GAS was not drawn. IMPRESSION: 1. Mild restrictive ventilatory limitation. 2. There is no significant response to bronchodilator aministration. This does not preclude the use of bronchodilator therapy if clinically indicated. 3. Mild reduction in DLCO adjusted for Hb. 4. In comparison to prior study on 09/12/2014, there has been a significant: 460 mL decrease in FEV1, a 540 mL decrease in FVC and 6.66 ml/min/mmHg decrease in DLCO. NO significant change was noted in TLC. Yanira Rodriguez MD Pulmonary / Critical Care Fellow Division of Pulmonary, Critical Care, & Sleep Medicine [facility] Pager: [phone] ATTENDING PHYSICIAN ATTESTATION/WARREN OVERTON M.D.: I have personally reviewed and interpreted the above test and I have made the necessary changes if needed to the above interpretation. Cristina Zurita PL[employer]ER MILL GRADER-[employer] [facility] RESPIRATORY [facility] ORDERABLES [facility] * MRI PELVIS WWO CONTRAST (12/17/2014 10:40 AM CDT) Anatomical Region Laterality Modality Pelvis Other Impressions 12/19/2014 9:26 AM CDT IMPRESSION: 1. No acute osseous abnormality of the left hip. No masses or abnormal enhancement along the course of the left sciatic nerve. 2. Persistent marrow edema and enhancement in the right sacral ala with an associated curvilinear hypointense line extending into the anterior /inferior surface of the sacrum, concerning for a stress fracture, although persistent postbiopsy changes are also in the differential. 3. Nearby, there is a new area of edema and enhancement in the posterior right iliac bone with overlying soft tissue edema and enhancement, likely representing postbiopsy changes. 4. Nonspecific 6 mm enhancing focus in the left iliac bone, more prominent compared to the prior study, which could represent a neoplastic or nonneoplastic bone lesion, a prominent intraosseous vessel, or possibly another biopsy site. These findings were discussed with Dr. Lira by Dr. Law at 9 AM on 12/19/2014. Dictated by Morgan Law M.D. This report was approved ??by Morgan Law M.D. ?? on 12/19/2014 9:05 AM . I, Dr. EZEKIEL MABRY MD have personally reviewed and interpreted this examination/study. This report was electronically signed by EZEKIEL MABRY MD ??on 12/19/2014 9:26 AM . Narrative 12/19/2014 9:26 AM CDT EXAMINATION: Magnetic resonance imaging (MRI) of the pelvis without and with contrast HISTORY: Left hip pain. History of AML, status post stem cell transplant. TECHNIQUE: MRI of the pelvis was performed using multiple pulse sequences in multiple planes prior to and after the uneventful administration of 10 mL Gadavist intravenous contrast. FINDINGS: Comparison is made to prior MRI of the right hip dated 08/09/2014. There is persistent edema and enhancement in the right sacral ala, with an associated curvilinear hypointense line extending to the anterior/inferior surface (series 3 images 15-19, series 5 image 11-12). The MRI appearance is concerning for stress reaction with a developing stress fracture, although persistent postbiopsy changes may also contribute to the appearance. The signal abnormality extends at least 5.5 cm anterior to the posterior cortex of the sacrum, so if this represents postbiopsy changes the biopsy would have extended approximately this far into the sacrum. ??There is new focal marrow edema and enhancement in the posterior right iliac bone with overlying soft tissue edema and enhancement, likely representing postbiopsy changes. There is increased conspicuity of a 6 mm nonspecific enhancing lesion in the right iliac bone approximately 2 cm lateral to the sacroiliac joint (series 12, image 13). Normal morphology and signal of the bilateral femoral heads is seen without evidence of the edema, fracture, or avascular necrosis. The sacroiliac and femoroacetabular joints are normal. The symphysis pubis is intact. No joint effusion is seen. There is no evidence of trochanteric or iliopsoas bursitis. The visualized gluteal, hamstring, adductor and iliopsoas muscles appear normal. There is an 8 mm cyst in the right side of the labia (series 5, image 85), likely representing a Bartholin's cyst. No pathologically enlarged pelvic side wall or inguinal lymph nodes are identified. The pelvic viscera are normal. No free pelvic fluid is present. No mass or fluid collection is seen along the course of the sciatic nerves on either side. Procedure Note Ezekiel Mabry MD - 08/02/2017 EXAMINATION: Magnetic resonance imaging (MRI) of the pelvis without andwith contrast HISTORY: Left hip pain. History of AML, status post stem celltransplant. TECHNIQUE: MRI of the pelvis was performed using multiple pulse sequencesin multiple planes prior to and after the uneventful administration of 10mL Gadavist intravenous contrast. FINDINGS: Comparison is made to prior MRI of the right hip date08/09/2014. There is persistent edema and enhancement in the right sacral ala, with anassociated curvilinear hypointense line extending to the anterior/inferiorsurface (series 3 images 15-19, series 5 image 11-12). The MRI appearanceis concerning for stress reaction with a developing stress fracture, although persistent postbiopsychanges may also contribute to the appearance. The signal abnormalityextends at least 5.5 cm anterior to the posterior cortex of the sacrum, soif this represents postbiopsy changes the biopsy would have extended approximately this far into thesacrum. There is new focal marrow edema and enhancement in the posteriorright iliac bone with overlying soft tissue edema and enhancement, likelyrepresenting postbiopsy changes. There is increased conspicuity of a 6 mm nonspecific enhancing lesion inthe right iliac bone approximately 2 cm lateral to the sacroiliac joint(series 12, image 13). Normal morphology and signal of the bilateral femoral heads is seenwithout evidence of the edema, fracture, or avascular necrosis. The sacroiliac and femoroacetabular joints are normal. The symphysis pubisis intact. No joint effusion is seen. There is no evidence of trochantericor iliopsoas bursitis. The visualized gluteal, hamstring, adductor and iliopsoas muscles appearnormal. There is an 8 mm cyst in the right side of the labia (series 5, image 85),likely representing a Bartholin's cyst. No pathologically enlarged pelvicside wall or inguinal lymph nodes are identified. The pelvic viscera arenormal. No free pelvic fluid is present. No mass or fluid collection is seen along the course of thesciatic nerves on either side. IMPRESSION IMPRESSION: 1. No acute osseous abnormality of the left hip. No masses or abnormalenhancement along the course of the left sciatic nerve. 2. Persistent marrow edema and enhancement in the right sacral ala with anassociated curvilinear hypointense line extending into the anterior/inferior surface of the sacrum, concerning for a stress fracture,although persistent postbiopsy changes are also in the differential. 3. Nearby, there is a new area of edema and enhancement in the posteriorright iliac bone with overlying soft tissue edema and enhancement, likelyrepresenting postbiopsy changes. 4. Nonspecific 6 mm enhancing focus in the left iliac bone, more prominentcompared to the prior study, which could represent a neoplastic ornonneoplastic bone lesion, a prominent intraosseous vessel, or possiblyanother biopsy site. These findings were discussed with Dr. Lira by Dr. Law at 9 Harish 12/19/2014. Dictated by Morgan Law M.D. This report was approved by Morgan Law M.D. on 12/19/2014 9:05 AM. I, Dr. EZEKIEL MABRY MD have personally reviewed and interpreted thisexamination/study. This report was electronically signed by EZEKIEL MABRY MD on 12/19/20149:26 AM . Fawad Ruffin MD MR ORDERABLES * RHEUMATOID FACTOR BLOOD QUANTITATIVE (11/18/2014 12:28 AM CDT) Rheumatoid Factor <15 <30 IU/mL [facility] Blood specimen (specimen) BLOOD SPECIMEN / Unknown 11/18/2014 12:28 AM CDT 11/18/2014 12:44 AM CDT Historical Provider LAB - CHEMISTRY Tran YOUNGER Performing Organization Address City/[facility]/ZIP Co de Phone Number [address] [phone] * CYCLIC CITRUL PEPTIDE AB IGG (CCP) (11/18/2014 12:28 AM CDT) Pathologist [facility] CCP Antibody IgG 1.2 <5.0 U/mL [facility] Blood specimen (specimen) BLOOD SPECIMEN / Unknown 11/18/2014 12:28 AM CDT 11/18/2014 12:44 AM CDT Historical Provider LAB - CHEMISTRY Tran YOUNGER Performing Organization Address [facility] Co de Phone Number [address] [phone] * INFLUENZA B ANTIGEN RAPID (11/02/2014 10:56 AM CDT) Pathologist [facility] Influenza B Rapid Test Negative Negative [facility] Comment: If clinical conditions warrant, molecular testing for Influenza offers superior sensitivity (>98%) and is available by ordering INFLUENZA/RSV LOGAN [[id number]]. ??To add to current sample within [address] an electronic or signed manual requisition order and call the [facility] at [phone] with your request. ?? Nasopharyngeal ENTIRE THROAT (SURFACE REGION OF NECK) / Unknown 11/02/2014 10:56 AM CDT 11/02/2014 11:04 AM CDT Narrative [facility] - 11/02/2014 11:24 AM CDT Specimen Type->Nasopharyngeal The positive and negative predictive values of rapid influenza testing vary considerably depending upon the prevalence on influenza in the community. *False-positive results are more likely to occur when disease prevalence is low. *False-negative results are more likely to occur when disease prevalence is high. *Current local influenza prevalence can be obtained by calling the Director of Microbiology at [phone]. Viki Aldana LAB - CHEMISTRY ORDE RABLES Performing Organization Address [facility]/ZIP Co de Phone Number [address] [phone] * STREP A SCREEN DIRECT (11/02/2014 10:56 AM CDT) Rapid Strep A Screen Negative Negative [facility] Throat swab (specimen) ENTIRE THROAT (SURFACE REGION OF NECK) / Unknown 11/02/2014 10:56 AM CDT 11/02/2014 11:04 AM CDT Narrative [facility] - 11/02/2014 11:19 AM CDT Specimen Type->Throat Swab Rapid test for Group A Beta Streptococcus is NEGATIVE. A Negative, Direct Test for Group A Streptococcus will be followed with a confirmatory Throat Culture when 2 swabs have been submitted. Viki KAUR - MICROBIOLOGY O RISHIERALATOYA Performing Organization Address [facility] Co de Phone Number [address] [phone] * INFLUENZA A ANTIGEN RAPID (11/02/2014 10:56 AM CDT) [facility] Influenza A Rapid Test Negative Negative [facility] Comment: If clinical conditions warrant, molecular testing for Influenza offers superior sensitivity (>98%) and is available by ordering INFLUENZA/RSV LOGAN [[id number]]. ??To add to current sample within [address] an electronic or signed manual requisition order and call the [facility] at [phone] with your request. ?? Nasopharyngeal ENTIRE THROAT (SURFACE REGION OF NECK) / Unknown 11/02/2014 10:56 AM CDT 11/02/2014 11:04 AM CDT Narrative [facility] - 11/02/2014 11:24 AM CDT Specimen Type->Nasopharyngeal The positive and negative predictive values of rapid influenza testing vary considerably depending upon the prevalence on influenza in the community. *False-positive results are more likely to occur when disease prevalence is low. *False-negative results are more likely to occur when disease prevalence is high. *Current local influenza prevalence can be obtained by calling the Director of Microbiology at [phone]. Viki Aldana LAB - CHEMISTRY ORDMiryam NEW Performing Organization Address [facility]/ZIP Co de Phone Number [address] [phone] * CULTURE STREP GROUP A (11/02/2014 10:56 AM CDT) [facility] Culture Beta Strep No Growth of Groups A, C or G Beta Streptococc us. [facility] Throat swab (specimen) ENTIRE THROAT (SURFACE REGION OF NECK) / Unknown 11/02/2014 10:56 AM CDT 11/02/2014 11:18 AM CDT Viki Aldana LAB - MICROBIOLOGY O RDERALATOYA Performing Organization Address [facility]/[place] [address], [facility] [phone] * IGG BLOOD (10/29/2014 8:52 AM CDT) Only the most recent of9 resultswithin the time period is included. [facility] IgG 776 540 - 1,822 mg/dL [facility] Blood specimen (specimen) BLOOD SPECIMEN / Unknown 10/29/2014 8:52 AM CDT 10/29/2014 9:02 AM CDT Taryn Contreras LAB - CHEMISTRY MARICARMEN NEW Performing Organization Address [facility] [place] [address], [facility] [phone] * SEROTONIN RELEASE ASSAY PANEL (10/19/2014 10:10 AM CDT) [facility] YOANA Low Dose Heparin 5 0 - 20 % H [facility] (BEAKER) YOANA High Dose Heparin 4 0 - 20 % SLH [facility] (BEAKER) Interpretation YOANA Comment S [facility] (BEAKER) Comment: YOANA Result: ??NEGATIVE COMMENT: ??While these results argue against a diagnosis of heparin- induced-thrombocytopenia (HIT), they do not completely exclude the diagnosis. ??The result should be interpreted in conjunction with other HIT assays, and the context of all the clinical information including the platelet count, the type of heparin administered, the duration of heparin exposure, previous heparin exposure and any thrombotic history. ??The assay measures serotonin release from donor platelets in the presence of patient's serum and heparin. ??A positive result requires greater than or equal to 20% release in the presence of low dose (0.2 IU/mL) heparin and inhibition of serotonin release in the presence of high dose (100 IU/mL) heparin. This test was developed and its performance characteristics determined by [employer]. It has not been cleared or approved by the Food and Drug Administration. BLOOD SPECIMEN / Unknown 10/19/2014 10:10 AM CDT 10/19/2014 10:24 AM CDT Narrative [facility] Re[employer]) - 10/24/2014 1:13 PM CDT Performed at: ??01 - [address] ??[id number] Student Support Services Director: Ravinder Lucas MD, Phone: ??[phone] Taryn Contreras LAB - CHEMISTRY MARICARMEN NEW Performing Organization Address [facility] de Phone Number [facility] Prevacus (Whole Opt[employer]) * (ABNORMAL) COPPER BLOOD (10/19/2014 10:10 AM CDT) Only the most recent of2 resultswithin the time period is included. Copper 67(L) 72 - 166 ug/dL [facility] (Whole Opt[employer]) Comment:Detection Limit = 5 Blood specimen (specimen) BLOOD SPECIMEN / Unknown 10/19/2014 10:10 AM CDT 10/19/2014 10:26 AM CDT Narrative [facility] Prevacus [employer]) - 10/21/2014 6:16 AM CDT Performed at: ??01 - [address] ??[id number] Student Support Services Director: Ravinder Lucas MD, Phone: ??[phone] Taryn Contreras LAB - CHEMISTRY MARICARMEN NEW Performing Organization Address [facility] de Phone Number [facility] ([employer]) * (ABNORMAL) G6PD QUANTITATIVE (10/19/2014 10:10 AM CDT) Pathologist [facility] RBC 3.50(L) 3.77 - 5.28 x10E6/uL [facility] ([facility]) G-6-PD Quantitative 398(H) 146 - 376 U/10E12 RBC [facility] ([facility]) Comment: When decreased, G-6-PD, Quant. values are associated with acute hemolytic anemia when deficient individuals are exposed to oxidative stress, such as with certain medications (e.g., primaquine), infection, or ingestion of rashaun beans. Caution: In patients with acute hemolysis (e.g., abnormally low RBC values), testing for G-6-PD may be falsely normal because older erythrocytes with a higher enzyme deficiency have been hemolyzed. Young erythrocytes and reticulocytes have normal or near-normal enzyme activity. Normal values of G-6-PD may be measured for several weeks following a hemolytic event. Blood specimen (specimen) BLOOD SPECIMEN / Unknown 10/19/2014 10:10 AM CDT 10/19/2014 10:24 AM CDT Narrative [facility] ([facility]) - 10/21/2014 6:16 AM CDT If sulfa allergic only Performed at: ??01 - [address] ??[id number] Student Support Services Director: Nasir Nation PhD, Phone: ??[phone] Performed at: ??02 - [address] ??[id number] Student Support Services Director: Ravinder Lucas MD, Phone: ??[phone] Taryn Contreras LAB - CHEMISTRY MARICARMEN NEW [facility] ([facility]) * HEPARIN PLATELET INDUCED ANTIBODY (10/19/2014 10:10 AM CDT) Only the most recent of2 resultswithin the time period is included. Pathologist [facility] Interpretation Heparin Platelet Antibody Negative Negative [facility] Comment: Heparin induced thrombocytopenia (HIT) is unlikely in the presence of a negative HIT antibody test result by EMRE and low pretest probability for type II HIT (scoring system of Warjorditin). It is suggested to verify positive HIT EMRE antibody test results by HIT Antibody Serotonin Release Assay. HIT EMRE Patient OD 0.096 <0.400 OD [facility] Blood specimen (specimen) BLOOD SPECIMEN / Unknown 10/19/2014 10:10 AM CDT 10/19/2014 10:19 AM CDT Taryn Contreras LAB - CHEMISTRY ORDE RABLES Performing Organization Address [facility]/ZIP Co de Phone Number [address] [phone] * BABITA DIRECT (10/19/2014 10:10 AM CDT) Direct Babita (TUNDE) NEG [facility] BLOOD BANK LAB Blood specimen (specimen) BLOOD SPECIMEN / Unknown 10/19/2014 10:10 AM CDT 10/19/2014 10:36 AM CDT Taryn Contreras LAB - BLOOD BANK ORD ERABLES Performing Organization Address [facility] de Phone Number [facility] BLOOD BANK LAB [address] [place] [address] * D-DIMER (10/19/2014 10:10 AM CDT) Only the most recent of42 resultswithin the time period is included. D-Dimer Quantitative <0.22 <=0.50 mcg/mL FEU [facility] Comment: In the absence of clinical symptoms, a value less than or equal to 0.5 FEU significantly decreases the probability of PE/DVT (negative predictive value >95%). 1 mcg/mL FEU = 1 Fibrinogen Equivalent Unit (approximates 0.5 mcg/ml of D- Dimer). Blood specimen (specimen) BLOOD SPECIMEN / Unknown 10/19/2014 10:10 AM CDT 10/19/2014 10:19 AM CDT Taryn Contreras LAB - COAGULATION OR DERABLES Performing Organization Address [facility] Co de Phone Number [address] [phone] * (ABNORMAL) FIBRINOGEN ACTIVITY (10/19/2014 10:10 AM CDT) Only the most recent of42 resultswithin the time period is included. Fibrinogen Clauss 163(L) 170 - 400 mg/dL [facility] Blood specimen (specimen) BLOOD SPECIMEN / Unknown 10/19/2014 10:10 AM CDT 10/19/2014 10:19 AM CDT Taryn Contreras LAB - COAGULATION OR DERABLES [address] [phone] * US RETROPERITONEAL COMPLETE (10/17/2014 9:59 AM CDT) Anatomical Region Laterality Modality Abdomen Other Impressions 10/17/2014 11:53 AM CDT IMPRESSION: 1. Normal renal size. No evidence of nephrolithiasis or hydronephrosis. Report dictated by Blayne Carr M.D. (resident). I, Dr. NORBERT POLK M.D. have personally reviewed and interpreted this examination/study. This report was electronically signed by NORBERT POLK M.D. ??on 10/17/2014 11:53 AM . Narrative 10/17/2014 11:53 AM CDT EXAM: Retroperitoneal ultrasound HISTORY: elevation in creatinine FINDINGS: Comparison is made with a CT abdomen on 07/30/2014 Right kidney: 10.5 x 4.9 x 5.8 cm Left kidney: 11.6 x 4.8 x 5.0 cm Renal parenchymal echogenicity is normal. There is no evidence of a solid renal mass, renal calculi, or hydronephrosis. Blood flow is seen within the renal arteries and veins. The bladder is within normal limits. Procedure Note Norbert Polk MD - 08/02/2017 EXAM: Retroperitoneal ultrasound HISTORY: elevation in creatinine FINDINGS: Comparison is made with a CT abdomen on 07/30/2014 Right kidney: 10.5 x 4.9 x 5.8 cm Left kidney: 11.6 x 4.8 x 5.0 cm Renal parenchymal echogenicity is normal. There is no evidence of a solidrenal mass, renal calculi, or hydronephrosis. Blood flow is seen withinthe renal arteries and veins. The bladder is within normal limits. IMPRESSION IMPRESSION: 1. Normal renal size. No evidence of nephrolithiasis or hydronephrosis. Report dictated by Blayne Carr M.D. (resident). I, Dr. NORBERT POLK M.D. have personally reviewed and interpreted thisexamination/study. This report was electronically signed by NORBERT POLK M.D. on 10/17/201411:53 AM . addwish US ORDERABLES * BK VIRUS PCR QUANTITATIVE URINE (10/15/2014 9:35 AM CDT) Only the most recent of2 resultswithin the time period is included. Pathologist [facility] BK Virus copy/mL Urine Negative Negative copies/mL [facility] Prevacus (SCOT) Comment: No BK DNA detected. The quantitative range of this assay is 200 to 10 million copies/mL. This test was developed and its performance characteristics determined by [employer]. ??It has not been cleared or approved by the Food and Drug Administration. ??The FDA has determined that such clearance or approval is not necessary. BK Virus log copy/mL Urine TNP [id number]/m L [facility] Prevacus [email or web address]) Comment: Unable to calculate result since non-numeric result obtained for component test. Urine specimen (specimen) URINE SPECIMEN OBTAINED BY CLEAN CATCH PROCEDURE / Unknown 10/15/2014 9:35 AM CDT 10/15/2014 9:35 AM CDT Narrative [facility] PrevacusRP (Appetizer MobileELODIA) - 10/19/2014 5:12 PM CDT Performed at: ??01 - [address] ??[id number] Student Support Services Director: Ravinder Lucas MD, Phone: ??[phone] [facility] [facility] LAB - MICROBIOLOGY O RDERABLES [email or web address]) * EOSINOPHIL URINE SMEAR (10/15/2014 9:35 AM CDT) Eosin Stain Urine None None [facility] Urine specimen (specimen) URINE SPECIMEN OBTAINED BY CLEAN CATCH PROCEDURE / Unknown 10/15/2014 9:35 AM CDT 10/15/2014 9:35 AM CDT Viki Poskin LAB - URINE CHEMISTR Y ORDERABLES Performing Organization Address [facility] de Phone Number [address] [phone] * SODIUM URINE RANDOM (10/15/2014 9:35 AM CDT) Sodium Urine 203 Not Established mmol/L [facility] Urine specimen (specimen) URINE SPECIMEN OBTAINED BY CLEAN CATCH PROCEDURE / Unknown 10/15/2014 9:35 AM CDT 10/15/2014 9:36 AM CDT Viki Poskin LAB - URINE CHEMISTR Y ORDERABLES Performing Organization Address [facility] de Phone Number [address] [phone] * CREATININE URINE RANDOM (10/15/2014 9:35 AM CDT) Creatinine Urine 60 Not Established mg/dL [facility] Urine specimen (specimen) URINE SPECIMEN OBTAINED BY CLEAN CATCH PROCEDURE / Unknown 10/15/2014 9:35 AM CDT 10/15/2014 9:36 AM CDT Viki Poskin LAB - URINE CHEMISTR Y ORDERABLES Performing Organization Address [facility] de Phone Number [address] [phone] * METHYLMALONIC ACID BLOOD (10/15/2014 7:50 AM CDT) Methylmalonic Acid 271 0 - 378 nmol/L [facility] (BEAKER) Blood specimen (specimen) BLOOD SPECIMEN / Unknown 10/15/2014 7:50 AM CDT 10/15/2014 7:50 AM CDT Narrative [facility]CO (SCOT) - 10/18/2014 11:17 AM CDT Performed at: ??01 - [address] ??[id number] Student Support Services Director: Ravinder Lucas MD, Phone: ??[phone] Viki Aldana LAB - CHEMISTRY ORDMiryam NEW Performing Organization Address City/[facility] Co de Phone Number [facility]) * HOMOCYSTEINE BLOOD QUANTITATIVE (10/15/2014 7:50 AM CDT) [facility] Homocysteine 6.5 4.4 - 16.2 umol/L [facility] Blood specimen (specimen) BLOOD SPECIMEN / Unknown 10/15/2014 7:50 AM CDT 10/15/2014 7:50 AM CDT Viki Aldana LAB - CHEMISTRY MARICARMEN NEW Performing Organization Address [facility] Co de Phone Number [address] [phone] * (ABNORMAL) CK BLOOD (10/12/2014 12:30 PM CDT) [facility] CK Total 16(L) 30 - 200 Units/L [facility] Blood specimen (specimen) BLOOD SPECIMEN / Unknown 10/12/2014 12:30 PM CDT 10/12/2014 12:30 PM CDT Taryn Pulidoes LAB - CHEMISTRY ORDMiryam NEW Performing Organization Address [facility] Co de Phone Number [address] [phone] * PARVOVIRUS B19 PCR (10/12/2014 12:19 PM CDT) Only the most recent of2 resultswithin the time period is included. [facility] Parvovirus B19 PCR Negative Negative S [facility] (SCOT) Comment: No Parvovirus B19 DNA detected. This test was developed and its performance characteristics determined by [employer]. It has not been cleared or approved by the U.S. Food and Drug Administration. The FDA has determined that such clearance or approval is not necessary. This test is used for clinical purposes. It should not be regarded as investigational or research. Blood specimen (specimen) BLOOD SPECIMEN / Unknown 10/12/2014 12:19 PM CDT 10/12/2014 12:19 PM CDT Narrative [facility]CO ([facility]) - 10/16/2014 1:05 PM CDT Performed at: ??01 - [address] ??[id number] Student Support Services Director: Ravinder Lucas MD, Phone: ??[phone] Taryn Contreras LAB - CHEMISTRY MARICARMEN NEW [facility] ([facility]) * HERPES VIRUS 6 DNA DANIA PCR (10/12/2014 12:17 PM CDT) Only the most recent of3 resultswithin the time period is included. Human Herpesvirus 6 Source Plasma [facility] ([facility]) Human Herpesvirus 6 Type Not Determined [facility] ([facility]) Comment: Sample is negative for HHV6 nucleic acid therefore, viral type cannot be determined. Human Herpesvirus 6 Quantitative (copy/mL) <1000 cpy/mL [facility] ([facility]) Human Herpesvirus 6 Quantitative (log copy/mL) <3.0 log [facility] ([facility]) Comment: INTERPRETIVE INFORMATION: Human Herpesvirus 6 by Quantitative PCR The quantitative range of this assay is 3.0-6.0 log copies/mL (1,000-999,000 copies/mL). A negative result (less than 3.0 log copies/mL or less than 1,000 copies/mL) does not rule out the presence of PCR inhibitors in the patient specimen or HHV6 DNA in concentrations below the level of detection of the assay. Inhibition may also lead to underestimation of viral quantitation. No international standard is currently available for calibration of this assay. Caution should be taken when interpreting results generated by different assay methodologies. ? Test developed and characteristics determined by [employer]. See Compliance Statement A: BECC.[employer]dingful/CS Interpretation Human Herpesvirus 6 DNA Quantitative Not Detected Not Detected [facility]) Other (qualifier value) BLOOD SPECIMEN / Unknown 10/12/2014 12:17 PM CDT 10/12/2014 12:17 PM CDT Taryn Contreras LAB - SEROLOGY ORDER SAMY [facility] ([facility]) * ZINC BLOOD (10/12/2014 12:17 PM CDT) Pathologist [facility] Zinc Blood 105 56 - 134 ug/dL [facility]) Comment:Detection Limit = 5 Blood specimen (specimen) BLOOD SPECIMEN / Unknown 10/12/2014 12:17 PM CDT 10/12/2014 12:17 PM CDT Narrative [facility]) - 10/14/2014 7:22 AM CDT Performed at: ??01 - [address] ??[id number] Student Support Services Director: Ravinder Lucas MD, Phone: ??[phone] Taryn Contreras LAB - CHEMISTRY MARICARMEN NEW Performing Organization Address [facility] Co de Phone Number [facility]) * BILIRUBIN DIRECT (10/08/2014 8:10 AM CDT) Bilirubin Conjugated 0.1 0.0 - 0.5 mg/dL [facility] Bilirubin Unconjugated 0.1 Unconjugated Bilirubin is a calculated value: Reference ranges have not been established. mg/dL [facility] Blood specimen (specimen) BLOOD SPECIMEN / Unknown 10/08/2014 8:10 AM CDT 10/08/2014 2:41 PM CDT Narrative [facility] - 10/08/2014 2:57 PM CDT Blood already in lab Yary Kelly APRN-[employer] [facility] LAB - CHEMIS TRY ORDERABLES [address] [phone] * US ABDOMEN LIMITED (10/04/2014 8:44 AM CDT) Only the most recent of3 resultswithin the time period is included. Anatomical Region Laterality Modality Abdomen Other Impressions 10/04/2014 5:17 PM CDT IMPRESSION: 1. No discrete hepatic lesion or biliary dilation. 2. No evidence of cholelithiasis or acute cholecystitis. Report dictated by Blayne Carr M.D. (resident). This report was approved ??by Blayne Carr M.D. ?? on 10/04/2014 9:31 AM . I, Dr. MARIA E HENDRIX M.D. have personally reviewed and interpreted this examination/study. This report was electronically signed by MARIA E HENDRIX M.D. ??on 10/04/2014 5:17 PM . Narrative 10/04/2014 5:17 PM CDT EXAM: Limited abdominal ultrasound HISTORY: BMT patient with increasing LFTs FINDINGS: Comparison is made with the prior right upper quadrant ultrasound on 07/28/2012 The liver is normal in echotexture. No discrete hepatic mass or intrahepatic biliary dilation is seen. Color Doppler evaluation demonstrates patency of the hepatic and portal veins. No gallstones, gallbladder wall thickening, or pericholecystic fluid is seen. Sonographic Metcalf's sign is negative. The common bile duct is nondilated, measuring 3 mm. The right kidney measures 10.7 cm in length. Limited views reveal no evidence of hydronephrosis. The visible pancreas shows normal echogenicity. The spleen measures 10.5 cm in length. No ascites is present. Procedure Note Maria E Hendrix MD - 08/02/2017 EXAM: Limited abdominal ultrasound HISTORY: BMT patient with increasing LFTs FINDINGS: Comparison is made with the prior right upper quadrantultrasound on 07/28/2012 The liver is normal in echotexture. No discrete hepatic mass orintrahepatic biliary dilation is seen. Color Doppler evaluationdemonstrates patency of the hepatic and portal veins. No gallstones, gallbladder wall thickening, or pericholecystic fluid isseen. Sonographic Metcalf's sign is negative. The common bile duct isnondilated, measuring 3 mm. The right kidney measures 10.7 cm in length. Limited views reveal noevidence of hydronephrosis. The visible pancreas shows normalechogenicity. The spleen measures 10.5 cm in length. No ascites ispresent. IMPRESSION IMPRESSION: 1. No discrete hepatic lesion or biliary dilation. 2. No evidence of cholelithiasis or acute cholecystitis. Report dictated by Blayne Carr M.D. (resident). This report was approved by Blayne Carr M.D. on 10/04/2014 9:31 AM . I, Dr. MARIA E HENDRIX M.D. have personally reviewed and interpreted thisexamination/study. This report was electronically signed by MARIA E HENDRIX M.D. on 10/04/20145:17 PM . Taryn Contreras US ORDERABLES * GGT (09/28/2014 11:05 AM CDT) GGT 39 9 - 64 Units/L [facility] Blood specimen (specimen) BLOOD SPECIMEN / Unknown 09/28/2014 11:05 AM CDT 09/28/2014 11:05 AM CDT Taryn Contreras LAB - CHEMISTRY MARICARMEN NEW [facility] Organization Address City/State/ZIP Co de Phone Number [address] [phone] * HEPATITIS B VIRUS DNA QUANT PCR (09/28/2014 11:04 AM CDT) Hepatitis B Virus IU/mL <20 IU/mL [facility] ([employer]) Comment:HBV DNA not detected Hepatitis B Virus DNA (Log IU/mL) TNP tck32IB/mL [facility]usRP (Whole Opt[employer]) Comment: Unable to calculate result since non-numeric result obtained for component test. Test Information Comment [facility] Prevacus (Whole [employer]) Comment:The reportable range for this assay is 20 to 170,000,000 IU/mL BLOOD SPECIMEN / Unknown 09/28/2014 11:04 AM CDT 09/28/2014 11:04 AM CDT Narrative [facility] (Appetizer MobileAKER) - 10/02/2014 7:07 PM CDT Performed at: ??01 - [facility] [address] ??[id number] Student Support Services Director: Ravinder Lucas MD, Phone: ??[phone] Taryn Contreras LAB - SEROLOGY ORDER SAMY Performing Organization Address City/[facility]/ZIP Co de Phone Number [facility] ([facility]) * HEPATITIS A IGM ANTIBODY (09/28/2014 11:04 AM CDT) Hepatitis A Virus Antibody IgM Non-reacti ve Non-reacti ve [facility] Blood specimen (specimen) BLOOD SPECIMEN / Unknown 09/28/2014 11:04 AM CDT 09/28/2014 11:04 AM CDT Taryn Contreras LAB - CHEMISTRY MARICARMEN NEW Performing Organization Address [facility] Co de Phone Number [address] [phone] * LAB HISTORICAL RESULTS-ONBASE (09/14/2014) Only the most recent of2 resultswithin the time period is included. 09/14/[address] [facility] - 10/12/2014 9:13 AM CDT Historical Provider LAB - CHEMISTRY O RDERABLES Performing Organization Address [facility] Co de Phone Number [facility] [address] * (ABNORMAL) GLUCOSE (09/13/2014 6:08 AM CDT) Glucose 269(H) 70 - 115 mg/dL [facility] Blood specimen (specimen) BLOOD SPECIMEN / Unknown 09/13/2014 6:08 AM CDT 09/13/2014 6:11 AM CDT Juanito Pimentel MD LAB - CHEMISTRY MARICARMEN NEW Performing Organization Address [facility] Co de Phone Number [address] [phone] * PFT-LAB (09/12/2014 2:06 PM CDT) Impressions [facility] RADIOLOGY - 09/12/2014 2:06 PM CDT [facility] DEPARTMENT OF PULMONARY, CRITICAL CARE, AND SLEEP MEDICINE PULMONARY FUNCTION TESTS Cristina Vincent 09/12/2014 INTERPRETATION Please see technologist's comments attached. SPIROMETRY: Forced vital capacity is mildly reduced. ??FEV1 is mildly reduced. ??FEV1/FVC ratio is normal. The inspection of the patient's flow-volume loops shows normal configuration of the inspiratory and expiratory limbs. LUNG VOLUMES: Lung volumes by body plethysmography indicates a mildly reduced TLC and a normal RV. DLCO: Diffusing capacity adjusted for Hb is normal. AIRWAY RESISTANCE: The airway resistance and the specific conductance are normal. IMPRESSION: 1. Mild restrictive ventilatory limitation. 2. Normal unadjusted diffusing capacity. Suggest adjustment with Hb and COHb. 3. Compared 05/02/2014, FEV1, FVC, and TLC did not significantly change. DLCO significantly increased by 6.14 ml/min/mmHg. Owen Galindo MD (Fellow) Division of Pulmonary, Critical Care, & Sleep Medicine [facility] Pager 09/12/2014 3:48 PM I have personally reviewed the test and agreed with the interpretation. Reno Barton M.D., [facility] Narrative Procedure Note Provider, MD Jose - 10/10/2017 IMPRESSION [facility] DEPARTMENT OF PULMONARY, CRITICAL CARE, AND SLEEP MEDICINE PULMONARY FUNCTION TESTS Cristina Vincent 09/12/2014 INTERPRETATION Please see technologist's comments attached. SPIROMETRY: Forced vital capacity is mildly reduced. FEV1 is mildly reduced. FEV1/FVC ratio is normal. The inspection of the patient's flow-volume loops shows normal configuration of the inspiratory and expiratory limbs. LUNG VOLUMES: Lung volumes by body plethysmography indicates a mildly reduced TLC and a normal RV. DLCO: Diffusing capacity adjusted for Hb is normal. AIRWAY RESISTANCE: The airway resistance and the specific conductance are normal. IMPRESSION: 1. Mild restrictive ventilatory limitation. 2. Normal unadjusted diffusing capacity. Suggest adjustment with Hb and COHb. 3. Compared 05/02/2014, FEV1, FVC, and TLC did not significantly change. DLCO significantly increased by 6.14 ml/min/mmHg. Owen Galindo MD (Fellow) Division of Pulmonary, Critical Care, & Sleep Medicine [facility] Pager 09/12/2014 3:48 PM I have personally reviewed the test and agreed with the interpretation. Reno Barton M.D., [facility] Kary Odell [employer] RESPIRATORY THER APY ORDERABLES [facility] RADIOLOGY * FECAL LEUKOCYTES (09/06/2014 12:23 PM CDT) Fecal Leukocytes No White Blood Cells seen. [facility] Stool specimen (specimen) STOOL SPECIMEN / Unknown 09/06/2014 12:23 PM CDT 09/06/2014 12:23 PM CDT Narrative [facility] - 09/06/2014 4:54 PM CDT Specimen Type->Stool Historical Provider MD LAB - BODY FLUID ORDERABLES Performing Organization Address [facility] Co de Phone Number [address] [phone] * (ABNORMAL) NICOTINE METABOLITE URINE (09/02/2014 9:26 PM CDT) Only the most recent of4 resultswithin the time period is included. Cotinine Positive(A) Cutoff=30 0 ng/mL [facility] ([facility]) Comment Drug Screen Comment [facility] ([facility] Comment: This assay provides a preliminary unconfirmed analytical test result that may be suitable for the clinical management of patients in certain situations. ??For workplace drug testing programs, preliminary positive findings should always be confirmed by an alternative method. Some vuzt-yxl-ezxmopb medications, as well as adulterants, may cause inaccurate results. Screen Only testing does not meet the [employer] Forensic Urine Drug Testing Program requirements as a forensic urine drug test for workplace testing. All clients must ensure that their testing program conforms to applicable state and federal laws and employment agreements. Urine specimen (specimen) URINE SPECIMEN OBTAINED BY CLEAN CATCH PROCEDURE / Unknown 09/02/2014 9:26 PM CDT 09/02/2014 9:26 PM CDT Narrative [facility] DOROTHY ALANIS) - 09/06/2014 6:14 AM CDT Performed at: ??01 - [facility] [address] ??[id number] Student Support Services Director: Ravinder Lucas MD, Phone: ??[phone] Performed at: ??02 - [facility] [address] ??[id number] Student Support Services Director: Nasir Nation PhD, Phone: ??[phone] Historical Provider LAB - URINE CHEMI STRY ORDERABLES [facility] DOROTHY ALANIS) * MRI HIP RIGHT WWO CONTRAST (08/09/2014 8:50 PM CDT) Anatomical Region Laterality Modality Other Impressions 08/10/2014 4:45 PM CDT Impression: 1. There is edema within the right sacral ala and associated mild enhancement associated with a likely recent biopsy tract. This may represent postprocedural changes. 2. Mild greater trochanteric bursitis. 3. Normal proximal femoral marrow signal intensity without fracture or osteonecrosis. This report was approved ??by Kirby Alegre M.D. ?? on 08/10/2014 11:03 AM . I, Dr. ROME SAMUELS M.D. have personally reviewed and interpreted this examination/study. This report was electronically signed by ROME SAMUELS M.D. ??on 08/10/2014 4:45 PM . Narrative 08/10/2014 4:45 PM CDT MRI Right Hip Without and with Contrast History: Right hip pain with ambulation in the setting of a stem cell transplant for AML. Technique: ??MRI of the right hip was performed using multiple pulse sequences in multiple planes prior to and after uneventful administration of 8 mL Gadavist intravenous gadolinium contrast. Comparison: ??Comparison is made with prior radiograph dated 08/06/2014. Findings: There is right sacral edema associated with a linear likely biopsy tract. Marrow edema and enhancement also extends transversely between the S1 and S2 segments. There is also small amount of somewhat linear T1 hypointensity along the superior aspect of the right sacral ala. No sacral fracture is seen. The enhancement extends to involve the right gluteal muscles and subcutaneous tissues. No subchondral marrow edema seen within the femoral head or the acetabulum. There is mild enhancement along the right greater trochanter, consistent with bursitis. The visualized tendons are otherwise normal in thickness and signal intensity. ??The muscles are normal in bulk and signal intensity. Marrow signal intensity is otherwise normal. Procedure Note Rome Samuels MD - 08/02/2017 MRI Right Hip Without and with Contrast History: Right hip pain with ambulation in the setting of a stem celltransplant for AML. Technique: MRI of the right hip was performed using multiple pulsesequences in multiple planes prior to and after uneventful administrationof 8 mL Gadavist intravenous gadolinium contrast. Comparison: Comparison is made with prior radiograph dated 08/06/2014. Findings: There is right sacral edema associated with a linear likely biopsy tract.Marrow edema and enhancement also extends transversely between the S1 andS2 segments. There is also small amount of somewhat linear U3hgpsgeocfxhcv along the superior aspect of the right sacral ala. No sacral fracture is seen. The enhancement extendsto involve the right gluteal muscles and subcutaneous tissues. No subchondral marrow edema seen within the femoral head or theacetabulum. There is mild enhancement along the right greater trochanter, consistentwith bursitis. The visualized tendons are otherwise normal in thicknessand signal intensity. The muscles are normal in bulk and signalintensity. Marrow signal intensity is otherwise normal. IMPRESSION Impression: 1. There is edema within the right sacral ala and associated mildenhancement associated with a likely recent biopsy tract. This mayrepresent postprocedural changes. 2. Mild greater trochanteric bursitis. 3. Normal proximal femoral marrow signal intensity without fracture orosteonecrosis. This report was approved by Kirby Alegre M.D. on 08/10/2014 11:03 AM. I, Dr. ROME SAMUELS M.D. have personally reviewed and interpreted thisexamination/study. This report was electronically signed by ROME SAMUELS M.D. on 08/10/20144:45 PM . Historical Provider MR ORDERABLES * MRI BRAIN WWO CONTRAST (08/08/2014 12:48 PM CDT) Only the most recent of2 resultswithin the time period is included. Anatomical Region Laterality Modality Head Other Impressions 08/08/2014 3:55 PM CDT IMPRESSION: 1. Normal examination of the brain. This report was approved ??by Jovan Gomez M.D. ?? on 08/08/2014 3:21 PM . I, Dr. MELISSA ANN M.D. have personally reviewed and interpreted this examination/study. This report was electronically signed by MELISSA ANN M.D. ??on 08/08/2014 3:55 PM . 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 TECHNIQUE: MRI of the brain was performed prior to and following the uneventful administration of 7.5 mL Gadavist intravenous gadolinium contrast according to a tumor protocol. FINDINGS: Comparison is made with a study from 04/06/2014. No evidence of acute or chronic hemorrhage is identified. No evidence of acute cerebral infarction is seen. The ventricles are of normal size, shape, and morphology. No mass effect or midline shift is seen. No enhancing lesions are identified. The corpus callosum and sella appear normal. The posterior fossa, brainstem, and craniocervical junction appear normal. The visualized portions of the orbits, paranasal sinuses, and mastoids appear normal. Normal flow voids are demonstrated in the carotid arteries and basilar artery. The calvarium and visualized cervical spine appear normal. Procedure Note Melissa Ann MD - 08/02/2017 EXAMINATION: Magnetic resonance imaging (MRI) of the brain without andwith contrast HISTORY: Vertigo, dizziness, status post stem cell transplant for acutemyelogenous leukemia. TECHNIQUE: MRI of the brain was performed prior to and following theuneventful administration of 7.5 mL Gadavist intravenous gadoliniumcontrast according to a tumor protocol. FINDINGS: Comparison is made with a study from 04/06/2014. No evidence of acute or chronic hemorrhage is identified. No evidence ofacute cerebral infarction is seen. The ventricles are of normal size,shape, and morphology. No mass effect or midline shift is seen. Noenhancing lesions are identified. The corpus callosum and sella appear normal. The posterior fossa, brainstem, andcraniocervical junction appear normal. The visualized portions of the orbits, paranasal sinuses, and mastoidsappear normal. Normal flow voids are demonstrated in the carotid arteriesand basilar artery. The calvarium and visualized cervical spine appearnormal. IMPRESSION IMPRESSION: 1. Normal examination of the brain. This report was approved by Jovan Gomez M.D. on 08/08/2014 3:[address] MELISSA Mckeon M.D. have personally reviewed and interpreted thisexamination/study. This report was electronically signed by MELISSA ANN M.D. on 08/08/20143:55 PM . Historical Provider MR ORDERABLES * XR PELVIS W RIGHT HIP 2VW (08/06/2014 11:31 AM CDT) Anatomical Region Laterality Modality Other Impressions 08/07/2014 10:06 AM CDT Impression: No acute fracture or dislocation. Report dictated by Wilver Nation M.D., MPH (resident). Dr. Emiliana Mckeon M.D. have personally reviewed and interpreted this examination/study. This report was electronically signed by Emiliana COMBS M.D. ??on 08/07/2014 10:06 AM . Narrative 08/07/2014 10:06 AM CDT Exam: XR HIP RIGHT 2+ VW Exam Date: 08/06/2014 11:32 AM History: Right hip pain Comparison: None. Findings: The osseous structures are intact and well aligned. There is no acute fracture or dislocation. No soft tissue swelling or bone demineralization is present. Procedure Note Flower Combs MD - 08/02/2017 Exam: XR HIP RIGHT 2+ VW Exam Date: 08/06/2014 11:32 AM History: Right hip pain Comparison: None. Findings: The osseous structures are intact and well aligned. There is no acutefracture or dislocation. No soft tissue swelling or bone demineralizationis present. IMPRESSION Impression: No acute fracture or dislocation. Report dictated by Wilver Nation M.D., MPH (resident). Dr. Emiliana Mckeon M.D. have personally reviewed and interpreted thisexamination/study. This report was electronically signed by Emiliana COMBS M.D. on08/07/2014 10:06 AM . Yary Kelly [employer] DIAGNOSTIC I MAGING ORDERABLES * CT ABDOMEN PELVIS W CONTRAST (07/30/2014 9:24 PM CDT) Anatomical Region Laterality Modality Abdomen, Pelvis Other Impressions 07/31/2014 11:42 AM CDT IMPRESSION: No acute abnormality in the abdomen or pelvis. No findings to explain patient's symptoms. Dictated by Dr. KATHLEEN Ritter MD, M.D. have personally reviewed and interpreted this examination/study. This report was electronically signed by KATHLEEN HAMILTON M.D. ??on 07/31/2014 11:42 AM . Narrative 07/31/2014 11:42 AM CDT EXAMINATION: Computed tomography of the abdomen and pelvis with contrast HISTORY: Abdominal tenderness. Bone marrow transplant for AML. TECHNIQUE: Computed tomography of the abdomen and pelvis was performed following the uneventful administration of 100 mL Omnipaque 350 intravenous contrast according to standard protocol. FINDINGS: No prior CT is available for comparison. Right upper quadrant ultrasound from 07/28/2014 with acute. The visualized lung bases are clear. The heart size is normal without pericardial effusion. The liver and gallbladder are normal without biliary ductal dilatation. The spleen, pancreas, and adrenal glands are normal. There is a splenule. The kidneys are normal without indication of hydronephrosis. The small and large bowel are normal in caliber without indication of obstruction. No free intraperitoneal air or free fluid is identified. ??Multiple small retroperitoneal lymph nodes are present. The abdominal aorta is normal in course and caliber. The urinary bladder is normal. The uterus is visualized. Bone windows demonstrate no suspicious lytic or blastic lesions. Procedure Note Francia Hamilton MD - 08/02/2017 EXAMINATION: Computed tomography of the abdomen and pelvis with contrast HISTORY: Abdominal tenderness. Bone marrow transplant for AML. TECHNIQUE: Computed tomography of the abdomen and pelvis was performedfollowing the uneventful administration of 100 mL Omnipaque 350intravenous contrast according to standard protocol. FINDINGS: No prior CT is available for comparison. Right upper quadrantultrasound from 07/28/2014 with acute. The visualized lung bases are clear. The heart size is normal withoutpericardial effusion. The liver and gallbladder are normal without biliary ductal dilatation.The spleen, pancreas, and adrenal glands are normal. There is a splenule.The kidneys are normal without indication of hydronephrosis. The small and large bowel are normal in caliber without indication ofobstruction. No free intraperitoneal air or free fluid is identified.Multiple small retroperitoneal lymph nodes are present. The abdominalaorta is normal in course and caliber. The urinary bladder is normal. The uterus is visualized. Bone windows demonstrate no suspicious lytic or blastic lesions. IMPRESSION IMPRESSION: No acute abnormality in the abdomen or pelvis. No findings to explainpatient's symptoms. Dictated by Ludmila Hamilton MD I, Dr. KATHLEEN HAMILTON M.D. have personally reviewed and interpreted thisexamination/study. This report was electronically signed by KATHLEEN HAMILTON M.D. on07/31/2014 11:42 AM . Fatoumata Limon [employer] ORDERA BLES * XR CHEST 1VW (07/07/2014 12:02 PM FINANCIAL DIRECTOR) Anatomical Region Laterality Modality Chest Other Impressions 07/07/2014 12:39 PM FINANCIAL DIRECTOR Impression: No acute pulmonary disease This report was electronically signed by KATHLEEN HAMILTON M.D. ??on 07/07/2014 12:39 PM . Narrative 07/07/2014 12:39 PM FINANCIAL DIRECTOR Exam: ??XR CHEST 1 VW History: ?increased WBC, post transplant pt Findings: Comparison is made to 06/18/2014. No pulmonary consolidation, pleural effusion, or pneumothorax is seen. The pulmonary vasculature is not distended. The heart and mediastinal contours are normal. A right subclavian double-lumen catheter has its tip at the caval atrial junction. The osseous structures are unremarkable. Procedure Note Francia Hamilton MD - 08/02/2017 Exam: XR CHEST 1 VW History: increased WBC, post transplant pt Findings: Comparison is made to 06/18/2014. No pulmonary consolidation, pleuraleffusion, or pneumothorax is seen. The pulmonary vasculature is notdistended. The heart and mediastinal contours are normal. A rightsubclavian double-lumen catheter has its tip at the caval atrial junction. The osseous structures are unremarkable. IMPRESSION Impression: No acute pulmonary disease This report was electronically signed by KATHLEEN HAMILTON M.D. on07/07/2014 12:39 PM . Edilma Callahan DIAGNOSTIC IMAGING O RDERABLES * FISH XX-XY (06/24/2014 5:45 AM FINANCIAL DIRECTOR) FISH XX-XY See scanned report. [facility] REF LAB NON INTERF Blood specimen (specimen) BLOOD SPECIMEN / Unknown 06/24/2014 5:45 AM FINANCIAL DIRECTOR 06/24/2014 6:25 AM FINANCIAL DIRECTOR Narrative [facility] REF LAB NON INTERF - 09/01/2014 1:07 PM CDT Peripheral blood sample, requisition in chart -collect in green top tube Viki Aldana LAB - PATHOLOGY/CYTO LOGY ORDERABLES [facility] REF LAB NON INTERF * CROSSMATCH RBC LEUKOREDUCED (06/16/2014 5:11 AM FINANCIAL DIRECTOR) Only the most recent of10 resultswithin the time period is included. Irradiated RBC [id number] transfused [facility] BLOOD BANK PRODUCTS (BEAKER) Unit ABO O [facility] BLOOD [facility]ANK PRODUCTS (BEAKER) Unit Rh POS [facility] BLOOD BANK PRODUCTS (BEAKER) Unit Number [id number] [facility] BLOOD BANK PRODUCTS (BEAKER) Unit Status Transfused [facility] BLO OD BANK PRODUCTS (BEAKER) 06/16/2014 5:11 AM FINANCIAL DIRECTOR 06/16/2014 5:11 AM FINANCIAL DIRECTOR Narrative [facility] BLOOD BANK PRODUCTS (BEAKER) - 06/16/2014 5:11 AM FINANCIAL DIRECTOR Special Requirements->CMV Negative Special Requirements->Irradiated # of Units->1 Juanito Pimentel MD LAB - BLOOD BANK ORD ERABLES [facility] BLOOD BANK PRODUCTS (BEAKER) * (ABNORMAL) PLATELET COUNT AUTO (06/15/2014 5:47 AM FINANCIAL DIRECTOR) Only the most recent of12 resultswithin the time period is included. Pathologist [facility] Platelet Count 33(L) 150 - 400 10? 3 /uL [facility] Comment:Results are confirme d by repeat analysis. Blood specimen (specimen) BLOOD SPECIMEN / Unknown 06/15/2014 5:47 AM FINANCIAL DIRECTOR 06/15/2014 5:57 AM FINANCIAL DIRECTOR Juanito Pimentel MD LAB - HEMATOLOGY ORD ERABLES [facility] [address] [phone] * FLOW CTP CD3/CD34/CD45 COUNT RESULT ONLY (06/07/2014 8:15 AM FINANCIAL DIRECTOR) [facility] Donor CD3+CD+CD45 Flow Cytometry Specimen: HPCA Reference:[id number] Reason for test: CD34/CD45/CD3 Requested Markers: 4 Flow Cytometry Results: Differential ?Result ?Comment CD34 Cells/ml(10^6) ? 2.83 Lymph/[place] Surface Marker ?Result (%) ? CD34 ? 1.44 ? CD45 ? 100 ? CD45 ? 100 ?CD3 ? 26 A DISCRETE STEM CELL POPULATION IS EVIDENT. Test performed at [facility], [address] [place] [address] ??[id number] INTERPRETATION: Flow cytometric analysis of the BT specimen shows that CD34 is expressed by 1.44% of cells within the combined lymphocyte/mono cyte/granulocyt e region. This results in an absolute number of 8.96 ??x 10^6 [id number] cells/kg. COMMENT: Per protocol, the first CD45 is for isotype analysis; the second CD45 is analyzed in conjunction with CD34. This case has been personally reviewed and interpreted by the attending (teaching) pathologist. Final Diagnosis performed by Rosa Mathews MD. Electronically signed 06/07/2014 [facility] PATHOLOGY [facility] ([facility]) Blood specimen (specimen) 06/07/2014 8:15 AM FINANCIAL DIRECTOR 06/07/2014 8:13 AM FINANCIAL DIRECTOR Juanito Pimentel MD LAB - PATHOLOGY/CYTO LOGY ORDERABLES [facility] PATHOLOGY LAB ([facility]) * NM CARDIAC MUGA SCAN (05/30/2014 1:32 PM FINANCIAL DIRECTOR) Only the most recent of3 resultswithin the time period is included. Anatomical Region Laterality Modality Chest Other Impressions 05/30/2014 2:03 PM FINANCIAL DIRECTOR Impression: 1. Normal biventricular size, volume and wall motion. 2. Normal left ventricular ejection fraction of 59%. This report was approved ??by Anil Hamilton M.D ?? on 05/30/2014 1:46 PM . I, Dr. DUANE WHITE D.O. have personally reviewed and interpreted this examination/study. This report was electronically signed by DUANE WHITE D.O. ??on 05/30/2014 2:03 PM . Narrative 05/30/2014 2:03 PM FINANCIAL DIRECTOR Procedure: MUGA scan History: Bone marrow transplant evaluation.. Technique: 26.0 mCi of [id number] autologous RBCs were injected IV in the right chest port. Labeling was achieved via Ultratag kit. Dynamic gated images of the heart were acquired in anterior, left anterior oblique and lateral views. Findings: Comparison made to prior study dated 05/02/2014. There is grossly normal biventricular size, volumes and wall motion. Left ventricular ejection fraction (EF) is 59%, previously 53%. Procedure Note Duane White, DO - 08/02/2017 Procedure: MUGA scan History: Bone marrow transplant evaluation.. Technique: 26.0 mCi of [id number] autologous RBCs were injected IV inthe right chest port. Labeling was achieved via Ultratag kit. Dynamicgated images of the heart were acquired in anterior, left anterior obliqueand lateral views. Findings: Comparison made to prior study dated 05/02/2014. There is grossly normal biventricular size, volumes and wall motion. Leftventricular ejection fraction (EF) is 59%, previously 53%. IMPRESSION Impression: 1. Normal biventricular size, volume and wall motion. 2. Normal left ventricular ejection fraction of 59%. This report was approved by Anil Hamilton M.D on 05/30/2014 1:46 PM . I, Dr. DUANE WHITE D.O. have personally reviewed and interpreted thisexamination/study. This report was electronically signed by DUANE WHITE D.O. on 05/30/20142:03 PM . Taryn MANCILLA ORDERABLES * B-TYPE NATRIURETIC PEPTIDE (05/26/2014 1:10 PM FINANCIAL DIRECTOR) BNP 20 See Comment pg/mL [facility] Comment: A decision threshold of 100 pg/mL has been demonstrated to provide the maximal combination of sensitivity, specificity and predictive value for the diagnosis of congestive heart failure (CHF). ??Virtually all patients with no evidence of CHF have BNP values less than 100 pg/mL. A BNP value greater than 100 pg/mL is consistent with the diagnosis of CHF in the appropriate clinical setting. In a study of 693 patients (male and female) with diagnosed CHF, the following values were determined based on the NYHA functional classification system: NYHA Functional Class ?Mean Valule (pg/mL) ? % >100 pg/mL ?I ?320 ? 58.1 ?II ? 432 ? 73.0 ?III ?656 ? 79.0 ?IV ?1635 ? 98.3 ? Blood specimen (specimen) BLOOD SPECIMEN / Unknown 05/26/2014 1:10 PM FINANCIAL DIRECTOR 05/26/2014 3:40 PM FINANCIAL DIRECTOR Juanito Pimentel MD LAB - CHEMISTRY MARICARMEN NEW Performing Organization Address [facility] Co de Phone Number [facility] [address] [place] [address] * PRE-TRANSPLANT ENGRAFT (05/26/2014 1:00 PM FINANCIAL DIRECTOR) Blood specimen (specimen) 05/26/2014 1:00 PM FINANCIAL DIRECTOR 05/26/2014 4:[address] [facility] - 05/31/2014 1:50 PM FINANCIAL DIRECTOR RECIPIENT = RID# [id number] ?? ; ?? DONOR ID = [id number] Juanito Pimentel MD LAB - CHEMISTRY MARICARMEN NEW Performing Organization Address [facility] de Phone Number [facility] [address] [place] [address] * CT CHEST W CONTRAST (05/23/2014 3:50 PM FINANCIAL DIRECTOR) Anatomical Region Laterality Modality Chest Other Impressions 05/24/2014 3:14 PM FINANCIAL DIRECTOR IMPRESSION: 1. No acute pulmonary process. Report dictated by Wilver Nation M.D., MPH (resident). This report was approved ??by Wilver Nation M.D. ?? on 05/24/2014 2:25 PM . I, Dr. NORBERT POLK M.D. have personally reviewed and interpreted this examination/study. This report was electronically signed by NORBERT POLK M.D. ??on 05/24/2014 3:14 PM . Narrative 05/24/2014 3:14 PM FINANCIAL DIRECTOR EXAMINATION: Computed tomography (CT) of the chest with contrast Exam Date: 05/23/2014 4:44 PM History: Cough since April, s/p induction chemotherapy. Comparison: None. TECHNIQUE: CT of the chest was performed following the uneventful administration of 50 mL of Omnipaque 350 intravenous contrast according to standard protocol. FINDINGS: A right internal jugular approach central venous catheter terminates at the cavoatrial junction. The lungs are free of focal consolidations. No suspicious pulmonary nodules are visible. There is no pleural effusion or pneumothorax. There is no supraclavicular, axillary, mediastinal or hilar lymphadenopathy. The left-sided aortic arch is normal in course and caliber. The pulmonary arteries are normal in course and caliber. The remaining enhanced vascular structures are normal. The heart size is normal. There is no pericardial effusion. The visualized portions of the liver, gallbladder, spleen, pancreas, adrenal glands, and kidneys are normal. A splenule is present. The visualized portions of the stomach and bowel also appear normal. No acute osseous abnormality is identified. Procedure Note Norbert Polk MD - 08/02/2017 EXAMINATION: Computed tomography (CT) of the chest with contrast Exam Date: 05/23/2014 4:44 PM History: Cough since April, s/p induction chemotherapy. Comparison: None. TECHNIQUE: CT of the chest was performed following the uneventfuladministration of 50 mL of Omnipaque 350 intravenous contrast according tostandard protocol. FINDINGS: A right internal jugular approach central venous catheter terminates atthe cavoatrial junction. The lungs are free of focal consolidations. No suspicious pulmonarynodules are visible. There is no pleural effusion or pneumothorax. Thereis no supraclavicular, axillary, mediastinal or hilar lymphadenopathy. The left-sided aortic arch is normal in course and caliber. The pulmonaryarteries are normal in course and caliber. The remaining enhanced vascularstructures are normal. The heart size is normal. There is no pericardialeffusion. The visualized portions of the liver, gallbladder, spleen, pancreas,adrenal glands, and kidneys are normal. A splenule is present. Thevisualized portions of the stomach and bowel also appear normal. No acute osseous abnormality is identified. IMPRESSION IMPRESSION: 1. No acute pulmonary process. Report dictated by Wilver Nation M.D., MPH (resident). This report was approved by Wilver Nation M.D. on 05/24/20142:25 PM . I, Dr. NORBERT POLK M.D. have personally reviewed and interpreted thisexamination/study. This report was electronically signed by NORBERT POLK M.D. on 05/24/20143:[address] ORDERABLES * (ABNORMAL) CREATININE CLEARANCE URINE TIMED + BLOOD (05/23/2014 2:30 PM FINANCIAL DIRECTOR) Only the most recent of3 resultswithin the time period is included. Creatinine Urine 83 Not Established mg/dL [facility] Creatinine 0.6 0.6 - 1.2 mg/dL [facility] Volume Timed Urine 2,050 mL [facility] Collection Time Timed Urine 24 Hrs [facility] Creatinine Clearance 197(H) 70 - 130 mL/minute/1.73m 2 [facility] Chart BSA 1.87 Avg. BSA = 1.73 m2 m2 [facility] Creatinine Clearance (Corrected for BSA) 182 Not Established mL/minute [facility] Urine specimen (specimen) (Urine, unspecified source) 05/23/2014 2:30 PM FINANCIAL DIRECTOR 05/23/2014 2:30 PM FINANCIAL DIRECTOR Viki Aldana LAB - URINE CHEMISTR Y ORDERABLES [address] [phone] * INFECTIOUS DISEASE TESTING NTL (05/18/2014 12:45 PM FINANCIAL DIRECTOR) Hepatitis B Surface Antigen Negative Negative [facility] Hepatitis C Virus Antibody Negative Negative [facility] HIV-1 / HIV-2 Antibody Western Blot Negative Negative [facility] Hepatitis B Core Virus Antibody Negative Negative [facility] HTLV-I/II Antibody Negative Negative [facility] NTL T. pallidum Antibody Negative Negative [facility] Cytomegalovirus Antibody Negative Negative [facility] HIV-1/HCV/HBV (TANISHA) Negative Negative [facility] West Nile Virus Negative Negative [facility] Chagas Antibody Negative Negative [facility] Blood specimen (specimen) BLOOD SPECIMEN / Unknown 05/18/2014 12:45 PM FINANCIAL DIRECTOR 05/18/2014 4:01 PM FINANCIAL DIRECTOR Narrative [facility] - 05/19/2014 11:45 AM FINANCIAL DIRECTOR [email or web address] ID [id number] Performed By: [facility] [address] [place] [address] Juanito Pimentel MD LAB - CHEMISTRY MARICARMEN NEW [facility] [address] [place] [address] * HLA TYPING DNA LOW RESOLUTION DR,DQ (05/18/2014 12:45 PM FINANCIAL DIRECTOR) Only the most recent of2 resultswithin the time period is included. DR DQ Low Resolution DRB1-1 07 [facility] ([facility]) DR DQ Low Resolution DRB1-2 15 [facility] ([facility]) DR DQ Low Resolution DQB1-1 03 [facility] ([facility]) DR DQ Low Resolution DQB1-2 06 [facility] ([facility]) DR DQ Low Resolution DRB3-1 - [facility] ([facility]) DR DQ Low Resolution DRB3-2 - [facility] ([facility]) DR DQ Low Resolution DRB4-1 01:03N [facility] ([facility]) DR DQ Low Resolution DRB4-2 - [facility] ([facility]) DR DQ Low Resolution DRB5-1 01 [facility] ([facility]) DR DQ Low Resolution DRB5-2 - [facility] ([facility]) DR DQ Low Resolution Methodology SSOP [facility] ([facility]) Comment DR DQ Low Resolution - [facility] ([facility]) DR DQ Low Resolution test date 05/19/19 15 [facility] ([facility]) Comment: This test was developed and its performance characteristics determined bythe [facility]. ??It has not been cleared or approved by the.. Food and Drug Administration. ??The FDA has determined that suchclearance or approval is not necessary. ?? This test is used for clinicalpurposes. ??It should not be regarded as investigational or for research.This laboratory is certified under the Clinical Laboratory ImprovementAmendments of 1988 (CLIA-88) as qualified to perform high complexityclinical laboratory testing.Performed at: ??[facility], [address] @ [facility], [place] ??[phone] Director: Daniel Lucas MD, Blood specimen (specimen) BLOOD SPECIMEN / Unknown 05/18/2014 12:45 PM FINANCIAL DIRECTOR 05/18/2014 3:28 PM FINANCIAL DIRECTOR Juanito Pimentel MD LAB - BLOOD BANK ORD ERABLES [facility] ([facility]) * HLA TYPING DNA LOW RESOLUTION A,B,C (05/18/2014 12:45 PM FINANCIAL DIRECTOR) Only the most recent of2 resultswithin the time period is included. ABC DNA A1 01 [facility] ([facility]) ABC DNA A2 24 [facility] ([facility]) ABC DNA B1 55 [facility] ([facility]) ABC DNA B2 57 [facility] ([facility]) ABC DNA BW1 6 [facility] ([facility]) ABC DNA BW2 4 [facility] ([facility] ABC DNA C1 03 [facility] ([facility]) ABC DNA C2 06 [facility] ([facility]) ABC DNA Methodology SSOP [facility] ([facility]) Comment ABC DNA - [facility] ([facility]) ABC DNA Test Date 05/19/19 15 [facility] ([facility]) Comment: This test was developed and its performance characteristics determined bythe [facility]. ??It has not been cleared or approved by [facility] Food and Drug Administration. ??The FDA has determined that suchclearance or approval is not necessary. ?? This test is used for clinicalpurposes. ??It should not be regarded as investigational or for research.This laboratory is certified under the Clinical Laboratory ImprovementAmendments of 1988 (CLIA-88) as qualified to perform high complexityclinical laboratory testing.Performed at: ??[facility], [address] @ [place], [place] ??[phone] Director: Daniel Lucas MD, Blood specimen (specimen) BLOOD SPECIMEN / Unknown 05/18/2014 12:45 PM FINANCIAL DIRECTOR 05/18/2014 3:27 PM FINANCIAL DIRECTOR Juanito Pimentel MD LAB - BLOOD BANK ORD ERABLES [facility] ([facility]) * HLA TYPING DNA HIGH RESOLUTION DR (05/18/2014 12:45 PM FINANCIAL DIRECTOR) Only the most recent of2 resultswithin the time period is included. DR Locus DRB1-1 07:01 [facility] ([facility]) DR DQ Low Resolution DRB1-2 15:01 [facility] ([facility]) DR Locus Test Method SSP [facility] ([facility]) Comment DR Locus - [facility] ([facility]) DR Locus Test Date 05/19/19 15 [facility] ([facility]) Comment: This test was developed and its performance characteristics determined bythe [facility]. ??It has not been cleared or approved by the. Food and Drug Administration. ??The FDA has determined that suchclearance or approval is not necessary. ?? This test is used for clinicalpurposes. ??It should not be regarded as investigational or for research.This laboratory is certified under the Clinical Laboratory ImprovementAmendments of 1988 (CLIA-88) as qualified to perform high complexityclinical laboratory testing.Performed at: ??[facility], [address] @ [place], [place] ??[phone] Director: Daniel Lucas MD, Blood specimen (specimen) BLOOD SPECIMEN / Unknown 05/18/2014 12:45 PM FINANCIAL DIRECTOR 05/18/2014 3:28 PM FINANCIAL DIRECTOR Juanito Pimentel MD LAB - BLOOD BANK ORD ERABLES Performing Organization Address City/[facility]/ZIP Co de Phone Number [facility] ([facility]) * HLA TYPING DNA HIGH RESOLUTION DQ (05/18/2014 12:45 PM FINANCIAL DIRECTOR) Only the most recent of2 resultswithin the time period is included. Pathologist [facility] DR DQ Low Resolution DQB1-1 03:03 [facility] ([facility]) DR DQ Low Resolution DQB1-2 06:02 [facility] ([facility]) DQ Locus Methodology SSP [facility] ([facility]) Comment DQ Locus - [facility] ([facility]) DQ Locus Test Date 05/19/19 15 [facility] ([facility]) Comment: This test was developed and its performance characteristics determined bythe [facility]. ??It has not been cleared or approved by theU.S. Food and Drug Administration. ??The FDA has determined that suchclearance or approval is not necessary. ?? This test is used for clinicalpurposes. ??It should not be regarded as investigational or for research.This laboratory is certified under the Clinical Laboratory ImprovementAmendments of 1988 (CLIA-88) as qualified to perform high complexityclinical laboratory testing.Performed at: ??[facility], [address] @ [facility], [place] ??[phone] Director: Daniel Lucas MD, Blood specimen (specimen) BLOOD SPECIMEN / Unknown 05/18/2014 12:45 PM FINANCIAL DIRECTOR 05/18/2014 3:27 PM FINANCIAL DIRECTOR Juanito Pimentel MD LAB - BLOOD BANK ORD TRAVIS [facility] ([facility]) * HLA TYPING DNA HIGH RESOLUTION B (05/18/2014 12:45 PM FINANCIAL DIRECTOR) Only the most recent of2 resultswithin the time period is included. [facility] HLA B Locus B-1 55:01 [facility] ([facility]) HLA B Locus Bw-1 6 [facility] ([facility]) HLA B Locus B-2 57:01 [facility] ([facility] HLA B Locus Bw-2 4 [facility] ([facility]) HLA B Locus Methodology SSP [facility] ([facility]) Comment HLA B Locus - [facility] ([facility]) HLA B Locus Test Date 05/19/19 [facility] ([facility]) Comment: This test was developed and its performance characteristics determined bythe [facility]. ??It has not been cleared or approved by theU.S. Food and Drug Administration. ??The FDA has determined that suchclearance or approval is not necessary. ?? This test is used for clinicalpurposes. ??It should not be regarded as investigational or for research.This laboratory is certified under the Clinical Laboratory ImprovementAmendments of 1988 (CLIA-88) as qualified to perform high complexityclinical laboratory testing.Performed at: ??[facility], [address] @ [facility], [place] ??[phone] Director: Daniel Lucas MD, Blood specimen (specimen) BLOOD SPECIMEN / Unknown 05/18/2014 12:45 PM FINANCIAL DIRECTOR 05/18/2014 3:27 PM FINANCIAL DIRECTOR Juanito Pimentel MD LAB - BLOOD BANK ORD ERABLES [facility] ([facility]) * HLA TYPING DNA HIGH RESOLUTION A (05/18/2014 12:45 PM FINANCIAL DIRECTOR) Only the most recent of2 resultswithin the time period is included. A Locus HR A1 01:01 [facility] ([facility]) A Locus HR A2 24:02 [facility] A [facility] ([facility] A [facility]ocus HR Methodology SSP [facility] ([facility]) Comment A Locus HR - S [facility] ([facility]) A Locus Test Date 05/19/19 15 [facility] ([facility]) Comment: This test was developed and its performance characteristics determined bythe [facility]. ??It has not been cleared or approved by [facility]. Food and Drug Administration. ??The FDA has determined that suchclearance or approval is not necessary. ?? This test is used for clinicalpurposes. ??It should not be regarded as investigational or for research.This laboratory is certified under the Clinical Laboratory ImprovementAmendments of 1988 (CLIA-88) as qualified to perform high complexityclinical laboratory testing.Performed at: ??[facility], [address] @ [place], [place] ??[phone] Director: Daniel Lucas MD, Blood specimen (specimen) BLOOD SPECIMEN / Unknown 05/18/2014 12:45 PM FINANCIAL DIRECTOR 05/18/2014 3:27 PM FINANCIAL DIRECTOR Juanito Pimentel MD LAB - BLOOD BANK ORD ERABLES [facility] ([facility]) * HLA TYPING DNA HIGH RESOLUTION C (05/18/2014 12:45 PM FINANCIAL DIRECTOR) Only the most recent of2 resultswithin the time period is included. C Locus C1 03:03 [facility] ([facility]) C Locus C2 06:02 [facility] ([facility]) Test Method SSP [facility] ([facility]) Comment C Locus - [facility] ([facility]) C Locus Test Date 05/19/19 15 [facility] ([facility]) Comment: This test was developed and its performance characteristics determined bythe [facility]. ??It has not been cleared or approved by [facility] Food and Drug Administration. ??The FDA has determined that suchclearance or approval is not necessary. ?? This test is used for clinicalpurposes. ??It should not be regarded as investigational or for research.This laboratory is certified under the Clinical Laboratory ImprovementAmendments of 1988 (CLIA-88) as qualified to perform high complexityclinical laboratory testing.Performed at: ??[facility], [address] @ [place], [place] ??[address]Vzg Director: Daniel Lucas MD, Blood specimen (specimen) BLOOD SPECIMEN / Unknown 05/18/2014 12:45 PM FINANCIAL DIRECTOR 05/18/2014 3:27 PM FINANCIAL DIRECTOR Juanito Pimentel MD LAB - BLOOD BANK ORD ERABLES [facility] ([facility]) * (ABNORMAL) HERPES SIMPLEX 1+2 AB IGG SPEC (05/18/2014 12:45 PM FINANCIAL DIRECTOR) Herpes Simplex Virus 1 Antibody IgG Type Specific 2.63(H) 0.00 - 0.90 index [facility] ([facility]) Comment: ? Negative ?<0.91 ? Equivocal 0.91 - 1.09 ? Positive ?>1.09 Note: Negative indicates no antibodies detected to HSV-1. Equivocal may suggest early infection. ??If clinically appropriate, retest at later date. Positive indicates antibodies detected to HSV-1. Herpes Simplex Virus 2 Antibody IgG Type Specific <0.91 0.00 - 0.90 index [facility] ([facility]) Comment: ? Negative ?<0.91 ? Equivocal 0.91 - 1.09 ? Positive ?>1.09 Note: Negative indicates no antibodies detected to HSV-2. Equivocal may suggest early infection. ??If clinically appropriate, retest at later date. Positive indicates antibodies detected to HSV-2. Blood specimen (specimen) BLOOD SPECIMEN / Unknown 05/18/2014 12:45 PM FINANCIAL DIRECTOR 05/18/2014 3:33 PM FINANCIAL DIRECTOR Narrative [facility] ([facility]) - 05/20/2014 6:38 AM FINANCIAL DIRECTOR Performed at: ?? - [address] ??[id number] Student Support Services Director: Nasir Nation PhD, Phone: ??[phone] Juanito Pimentel MD LAB - SEROLOGY ORDER SAMY Performing Organization Address [facility]/ZIP Co de Phone Number [facility]) * URIC ACID BLOOD (05/18/2014 12:45 PM FINANCIAL DIRECTOR) Only the most recent of34 resultswithin the time period is included. Pathologist [facility] Uric Acid 3.3 2.6 - 7.2 mg/dL [facility] Blood specimen (specimen) BLOOD SPECIMEN / Unknown 05/18/2014 12:45 PM FINANCIAL DIRECTOR 05/18/2014 3:11 PM FINANCIAL DIRECTOR Juanito Pimentel MD LAB - CHEMISTRY ORDMiryam MANOHARCAREY Performing Organization Address [facility] Co de Phone Number [address] [phone] * HERPES SIMPLEX 1+2 ANTIBODY IGM (05/18/2014 12:45 PM FINANCIAL DIRECTOR) Herpes Simplex Virus Antibody IgM I/II Combination <0.91 0.00 - 0.90 Ratio [facility] ([facility]) Comment: ? Negative ?<0.91 ? Equivocal 0.91 - 1.09 ? Positive ?>1.09 Blood specimen (specimen) BLOOD SPECIMEN / Unknown 05/18/2014 12:45 PM FINANCIAL DIRECTOR 05/18/2014 3:36 PM FINANCIAL DIRECTOR Narrative [facility] ([facility]) - 05/20/2014 3:19 PM FINANCIAL DIRECTOR Performed at: ??01 - [facility] [address] ??[phone] Student Support Services Director: Nasir Nation PhD, Phone: ??[phone] Juanito Pimentel MD LAB - CHEMISTRY ORDMiryam NEW Performing Organization Address [facility] Co de Phone Number [facility] ([facility]) * DOUG-ARRIAZA VIRUS ANTIBODY TO VCA IGM (05/18/2014 12:45 PM FINANCIAL DIRECTOR) Doug-Arriaza VCA Antibody IgM <10.0 0.0 - 43.9 U/mL [facility]) Comment: INTERPRETIVE INFORMATION: Doug-Arriaza Virus Antibody to ?Viral Capsid Antigen, IgM ??35.9 U/mL or less.......Not Detected ?36.0-43.9 U/mL..........Indeterminate - Repeat testing in ?10-14 days may be helpful. ??44.0 U/mL or greater....Detected Interpretive information regarding serologic features of EBV-associated diseases is available at [email or web address]. Blood specimen (specimen) BLOOD SPECIMEN / Unknown 05/18/2014 12:45 PM FINANCIAL DIRECTOR 05/18/2014 3:34 PM FINANCIAL DIRECTOR Juanito Pimentel MD LAB - SEROLOGY ORDER SAMY Performing Organization Address [facility] Co de Phone Number [facility]) * VARICELLA ZOSTER ANTIBODY IGM (05/18/2014 12:45 PM FINANCIAL DIRECTOR) Varicella zoster Virus Antibody IgM <0.91 0.00 - 0.90 index [facility] ([facility]) Comment: ? Negative ?<0.91 ? Borderline ??0.91 - 1.09 ? Positive ?>1.09 Blood specimen (specimen) BLOOD SPECIMEN / Unknown 05/18/2014 12:45 PM FINANCIAL DIRECTOR 05/18/2014 3:36 PM FINANCIAL DIRECTOR Narrative [facility] ([facility]) - 05/20/2014 3:19 PM FINANCIAL DIRECTOR Performed at: ??01 - [address] ??[phone] Student Support Services Director: Nasir Nation PhD, Phone: ??[phone] Juanito Pimentel MD LAB - CHEMISTRY MARICARMEN NEW [facility] * TOXOPLASMA GONDII ANTIBODY IGG (05/18/2014 12:45 PM FINANCIAL DIRECTOR) Toxoplasma gondii Antibody IgG Quantitative <3.0 0.0 - 5.9 IU/mL [facility] ([facility]) Comment: ? Negative ?<6.0 ? Equivocal ??6.0 - 7.9 ? Positive ?>7.9 Blood specimen (specimen) BLOOD SPECIMEN / Unknown 05/18/2014 12:45 PM FINANCIAL DIRECTOR 05/18/2014 3:36 PM FINANCIAL DIRECTOR Narrative [facility]) - 05/20/2014 6:38 AM FINANCIAL DIRECTOR Performed at: ??01 - [address] ??[phone] Student Support Services Director: Nasir Nation PhD, Phone: ??[phone] Juanito Pimentel MD LAB - CHEMISTRY MARICARMEN [facility] * (ABNORMAL) DOUG-ARRIAZA VIRUS ANTIBODY TO VCA IGG (05/18/2014 12:45 PM FINANCIAL DIRECTOR) Doug-Arriaza Virus Antibody To Viral Capsid Antigen IgG 121.0(H) 0.0 - 21.9 U/mL [facility]) Comment: INTERPRETIVE INFORMATION: Doug-Arriaza Virus Antibody to ?Viral Capsid Antigen, IgG ??17.9 U/mL or less.......Not Detected ??18.0-21.9 U/mL..........Indeterminate - Repeat testing in ?10-14 days may be helpful. ??22.0 U/mL or greater....Detected Interpretive information regarding serologic features of EBV-associated diseases is available at [email or web address]. Blood specimen (specimen) BLOOD SPECIMEN / Unknown 05/18/2014 12:45 PM FINANCIAL DIRECTOR 05/18/2014 3:32 PM FINANCIAL DIRECTOR Juanito Pimentel MD LAB - CHEMISTRY MAR[place]ARMEN NEW [facility]) * (ABNORMAL) TRIGLYCERIDES BLOOD (05/18/2014 12:45 PM FINANCIAL DIRECTOR) Triglycerides 257(H) <150 mg/dL [facility] Comment: ATP III Classification of Triglycerides: ?<150 mg/dL: ??Normal ? 150 - 199 mg/dL: ??Borderline High ? 200 - 400 mg/dL: ??High ?>500 mg/dL: ??Very High Blood specimen (specimen) BLOOD SPECIMEN / Unknown 05/18/2014 12:45 PM FINANCIAL DIRECTOR 05/18/2014 3:11 PM FINANCIAL DIRECTOR Juanito Pimentel MD LAB - CHEMISTRY MAR[facility]ARMEN NEW Performing Organization Address [facility] de Phone Number [address] [phone] * (ABNORMAL) HEPATITIS B SURFACE ANTIBODY (05/18/2014 12:45 PM FINANCIAL DIRECTOR) Pathologist [facility] Hepatitis B Virus Surface Antibody Reactive( A) Non-react mi [facility] Comment: > 12 mIU/mL Hepatitis B surface Antibody (HBsAb). Reactive for HBsAb - individual is considered immune to Hepatitis B Virus infection. Hepatitis B Surface Antibody Quantitative >1,000.0( H) <8.0 mIU/mL [facility] Comment: Hepatitis B Surface Antibody Numeric Result Interpretation: ? Nonreactive: ?<8.0 mIU/mL ? Indeterminate: ??8.0 - 12.0 mIU/mL ? Reactive: ?>12.0 mIU/mL ? Blood specimen (specimen) BLOOD SPECIMEN / Unknown 05/18/2014 12:45 PM FINANCIAL DIRECTOR 05/18/2014 3:36 PM FINANCIAL DIRECTOR Juanito Pimentel MD LAB - CHEMISTRY MAR[facility]ARMEN NEW Performing Organization Address [facility] de Phone Number [address] [phone] * (ABNORMAL) CHOLESTEROL BLOOD (05/18/2014 12:45 PM FINANCIAL DIRECTOR) Cholesterol Total 219(H) <200 mg/dL [facility] Blood specimen (specimen) BLOOD SPECIMEN / Unknown 05/18/2014 12:45 PM FINANCIAL DIRECTOR 05/18/2014 3:11 PM FINANCIAL DIRECTOR Juanito Pimentel MD LAB - CHEMISTRY [place] NEW [address] [phone] * IGM BLOOD (05/18/2014 12:45 PM FINANCIAL DIRECTOR) IgM 32 22 - 293 mg/dL [facility] Blood specimen (specimen) BLOOD SPECIMEN / Unknown 05/18/2014 12:45 PM FINANCIAL DIRECTOR 05/18/2014 3:36 PM FINANCIAL DIRECTOR Juanito Pimentel MD LAB - CHEMISTRY MAR[place]ARMEN NEW Performing Organization Address City/[facility]/[place] [address], [facility] [phone] * (ABNORMAL) IGA BLOOD (05/18/2014 12:45 PM FINANCIAL DIRECTOR) IgA 77(L) 87 - 534 mg/dL [facility] Blood specimen (specimen) BLOOD SPECIMEN / Unknown 05/18/2014 12:45 PM FINANCIAL DIRECTOR 05/18/2014 3:36 PM FINANCIAL DIRECTOR Juanito Pimentel MD LAB - [place]MI[place] [address], [facility] [phone] * PFT-LAB (05/02/2014 11:52 AM FINANCIAL DIRECTOR) Impressions [facility] - 05/02/2014 11:52 AM FINANCIAL DIRECTOR [facility] DEPARTMENT OF PULMONARY, CRITICAL CARE, AND SLEEP MEDICINE PULMONARY FUNCTION TESTS Cristina Vincent 05/02/2014 INTERPRETATION Please see technologist's comments mentioned above. SPIROMETRY: Forced vital capacity is decreased. ??FEV1 is decreased. ??FEV1/FVC ratio is normal. The inspection of the patient's flow-volume loops shows a restrictive pattern of the inspiratory and expiratory limbs. LUNG VOLUMES: Lung volumes by body plethysmography shows a decreased total lung capacity. DLCO: Diffusing capacity adjusted for Hb is within normal limits. AIRWAY RESISTANCE: The airway resistance and the specific conductance are normal. IMPRESSION: 1. Mild restrictive ventilatory limitation. 2. DLCO (adjusted for Hb) is within normal limits. ?? 3. There is no previous study available for comparison. García Winter MD ATTENDING PHYSICIAN ATTESTATION/WARREN OVEROTN M.D.: I have personally reviewed and interpreted the above test and I have made the necessary changes if needed to the above interpretation. ?? Narrative Procedure Note ProviderJose MD - 10/10/2017 IMPRESSION [facility] DEPARTMENT OF PULMONARY, CRITICAL CARE, AND SLEEP MEDICINE PULMONARY FUNCTION TESTS Cristina Vincent 05/02/2014 INTERPRETATION Please see technologist's comments mentioned above. SPIROMETRY: Forced vital capacity is decreased. FEV1 is decreased. FEV1/FVC ratio is normal. The inspection of the patient's flow-volume loops shows a restrictive pattern of the inspiratory and expiratory limbs. LUNG VOLUMES: Lung volumes by body plethysmography shows a decreased total lung capacity. DLCO: Diffusing capacity adjusted for Hb is within normal limits. AIRWAY RESISTANCE: The airway resistance and the specific conductance are normal. IMPRESSION: 1. Mild restrictive ventilatory limitation. 2. DLCO (adjusted for Hb) is within normal limits. 3. There is no previous study available for comparison. García Winter MD ATTENDING PHYSICIAN ATTESTTAMIR/WARREN OVERTON M.D.: I have personally reviewed and interpreted the above test and I have made the necessary changes if needed to the above interpretation. Fawad Ruffin MD RESPIRATORY THERAP Y ORDERABLES [facility] * FIBRIN MONOMER (04/28/2014 10:33 AM FINANCIAL DIRECTOR) Only the most recent of35 resultswithin the time period is included. Fibrin Monomer Negative Negative [facility] Comment: ?Decreased ??Prolonged ??Decreased ?? Increased ??Increased ?Platelets ? PT ?Fibrinogen ?? Fibrin ? D-Dimer ? Monomer Acute DIC ? + ?+ ? +/- ?+ ?+ Subacute ??DIC ? + ?+ ? +/- ?- ?+ DVT, PE, Surgery ?-/+ ?-/+ ? - ?-/+ ? + ?? Vitamin K Deficiency ?- ?+ ?- ? - ?- Liver Disease ?+/- ? + ? -/+ ? -/+ ?+/- COMMENT: ??DIC is a possible complication of a number of clinical conditions. ??The classic laboratory features of combined thrombocytopenia, coagulopathy (due to consumption of labile coagulation factors) and increased levels of soluble fibrin and fibrinogen/fibrin degradation products are generally seen only in severe, acute DIC. ??Some of the laboratory abnormalities seen in DIC may be observed with extensive, localized thrombosis and severe liver disease (see table). ? Blood specimen (specimen) BLOOD SPECIMEN / Unknown 04/28/2014 10:33 AM FINANCIAL DIRECTOR 04/28/2014 10:54 AM FINANCIAL DIRECTOR Fawad Ruffin MD LAB - COAGULATION ORDERABLES Performing Organization Address [facility] [place] [address], [facility] [phone] * VANCOMYCIN LEVEL TROUGH (04/26/2014 4:23 PM FINANCIAL DIRECTOR) Only the most recent of5 resultswithin the time period is included. Vancomycin Trough 18.6 10.0 - 20.0 mcg/mL [facility] Blood specimen (specimen) BLOOD SPECIMEN / Unknown 04/26/2014 4:23 PM FINANCIAL DIRECTOR 04/26/2014 5:18 PM FINANCIAL DIRECTOR Narrative [facility] - 04/26/2014 5:34 PM FINANCIAL DIRECTOR Please obtain 30 minutes before 5pm scheduled dose. ??Do not HOLD vanc. Fawad Ruffin MD LAB - CHEMISTRY OR DERABLES Performing Organization Address [facility] [place] [address], [facility] [phone] * (ABNORMAL) CULTURE WOUND+GRAM STAIN (04/23/2014 10:38 AM FINANCIAL DIRECTOR) Culture Wound COAG NEG STAPH SPECIES(A ) [facility] Comment:Light Growth Coagula se Neg Staph Species Culture Wound DIPHTHERO IDS(A) [facility] Comment:Light Growth Diphthe roids Gram Stain [facility] Comment:1 swab Wound 04/23/2014 10:3 8 AM FINANCIAL DIRECTOR 04/23/2014 10:59 AM FINANCIAL DIRECTOR Narrative [facility] - 04/26/2014 3:19 PM FINANCIAL DIRECTOR Specimen Type->Wound Gram Stains are routinely screened for the presence of Polymorphonuclear Cells. Fawad Ruffin MD LAB - MICROBIOLOGY ORDERABLES Performing Organization Address [facility] Co de Phone Number [facility] [address] [place] [address] * PREPARE PLATELET PHERESIS UNIT(S) (04/22/2014 4:16 AM FINANCIAL DIRECTOR) Only the most recent of8 resultswithin the time period is included. Irradiated Platelet [id number] transfused [facility]LOOD [facility] (BEAKER) Unit ABO B [facility]LO[facility] (BEAKER) Unit Rh POS [facility] (BEAKER) Unit Number [id number] [facility] (BEAKER) Unit Status Transfused [facility] BLO OD BANK PRODUCTS (BEAKER) 04/22/2014 4:16 AM FINANCIAL DIRECTOR 04/22/2014 4:16 AM FINANCIAL DIRECTOR Narrative [facility]LO[facility] (BEAKER) - 04/22/2014 4:16 AM FINANCIAL DIRECTOR # of Units->1 Special Requirements->CMV Negative Special Requirements->Irradiated Fawad Ruffin MD LAB - BLOOD BANK O RDERABLES Performing Organization Address [facility] Co de Phone Number [facility] BLOOD [facility] PRODU[facility] (BEAKER) * XR PANOREX (04/19/2014 3:42 PM FINANCIAL DIRECTOR) Anatomical Region Laterality Modality Head Other Impressions 04/21/2014 1:14 PM FINANCIAL DIRECTOR Impression: No evidence of periapical abscess or other bone abnormality. Report dictated by Mino Lara MD (resident). This report was approved ??by Mino Lara ?? on 04/20/2014 3:10 PM . I, Dr. KATHLEEN HAMILTON M.D. have personally reviewed and interpreted this examination/study. This report was electronically signed by KATHLEEN HAMILTON M.D. ??on 04/21/2014 1:14 PM . 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 Comparison: ??None Findings: There is no bone destruction of the maxilla or mandible. No lytic or blastic lesion is seen. No periosteal reaction or periapical abscess is identified. The temporomandibular joints are intact bilaterally. 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 Comparison: None Findings: There is no bone destruction of the maxilla or mandible. No lytic orblastic lesion is seen. No periosteal reaction or periapical abscess isidentified. The temporomandibular joints are intact bilaterally. IMPRESSION Impression: No evidence of periapical abscess or other bone abnormality. Report dictated by Mino Lara MD (resident). This report was approved by Mino Lara on 04/20/2014 3:10 PM . I, Dr. KATHLEEN HAMILTON M.D. have personally reviewed and interpreted thisexamination/study. This report was electronically signed by KATHLEEN HAMILTON M.D. on04/21/2014 1:14 PM . Fawad Ruffin MD DIAGNOSTIC IMAGING ORDERABLES * QUANTIFERON TB-GOLD INC (04/19/2014 2:44 PM FINANCIAL DIRECTOR) QuantiFERON TB Gold Negative Negative [facility] [employer] ([employer]) Comment: The specimen received for QuantiFERON testing was incubated by the ordering institution. ??Specific procedures outlined in our Directory of Services and in the package insert for the QuantiFERON Gold (In Tube) test must be followed to enable for proper stimulation of cells for the production of interferon gamma. QuantiFERON Criteria Comment [facility] [employer] ([employer]) Comment: To be considered positive a specimen should have a TB Ag minus Nil value greater than or equal to 0.35 IU/mL and in addition the TB Ag minus Nil value must be greater than or equal to 25% of the Nil value. There may be insufficient information in these values to differentiate between some negative and some indeterminate test values. QuantiFERON TB Antigen Value 0.03 IU/mL [facility] [email or web address] ([employer]) QuantiFERON Nil Value 0.03 IU/mL [facility] [email or web address] ([employer]) QuantiFERON Mitogen Value 2.24 IU/mL [facility] PrevacusRP ([employer]) QFT TB Ag minus Nil Value 0.00 IU/mL [facility]) Interpretation Comment [facility] Junior LÓPEZ ([facility]) Comment: The QuantiFERON TB Gold (in Tube) assay is intended for use as an aid in the diagnosis of TB infection. Negative results suggest that there is no TB infection. In patients with high suspicion of exposure, a negative test should be repeated. A positive test indicates infection with Mycobacterium tuberculosis. Among individuals without tuberculosis infection, a positive test may be due to exposure to M. kansasii, M. szulgai or M. marinum. On the Internet, go to cdc.gov/tb for further details. Blood specimen (specimen) BLOOD SPECIMEN / Unknown 04/19/2014 2:44 PM FINANCIAL DIRECTOR 04/19/2014 2:44 PM FINANCIAL DIRECTOR Narrative [facility] ([facility]) - 04/22/2014 6:25 AM FINANCIAL DIRECTOR Performed at: ??[address] ??[id number] Student Support Services Director: Nasir Nation PhD, Phone: ??[phone] Fawad Ruffin MD LAB - SEROLOGY ORD ERABLES [facility]) * (ABNORMAL) CULTURE BLOOD FUNGUS (04/13/2014 6:01 PM FINANCIAL DIRECTOR) Pathologist [facility] Culture Fungus Blood CORYNEBACTERIUM JEIKEIUM(A) [facility] Comment:Growth at 72 Hours C orynebacterium Jeikeium Blood specimen (specimen) BLOOD SPECIMEN / Unknown 04/13/2014 6:01 PM FINANCIAL DIRECTOR 04/13/2014 6:14 PM FINANCIAL DIRECTOR Narrative [facility] - 04/17/2014 5:15 PM FINANCIAL DIRECTOR Specimen Type->Blood RESULTS CALLED TO AND READ BACK BY Dr. Camacho AT 8:33 AM, 04/17/2014 RESULTS CALLED TO AND READ BACK BY KAYLYNN AT 5:15 PM, 04/17/2014 Fawad Ruffin MD LAB - MICROBIOLOGY ORDERABLES [address] [phone] * PREPARE CRYOPRECIPITATE UNIT (S) (04/13/2014 4:29 AM FINANCIAL DIRECTOR) Pathologist [facility] Unit Cryo [id number] transfused [facility] Unit ABO O [facility] ([facility] Unit Rh POS [facility] ([facility]) Unit Number [id number] [facility] ([facility]) Unit Status Transfused [facility] BLO OD BANK [facility]CTS ([facility]) 04/13/2014 4:29 AM FINANCIAL DIRECTOR 04/13/2014 4:29 AM FINANCIAL DIRECTOR Narrative [facility] ([facility]) - 04/13/2014 4:29 AM FINANCIAL DIRECTOR CMV negative # of Units->5 Special Requirements->Irradiated Special Requirements->Other (Specify) Fawad Ruffin MD LAB - BLOOD BANK O RDERABLES [facility] ([facility]) * CEBPA MUTATION ANALYSIS (04/07/2014 12:35 PM FINANCIAL DIRECTOR) [facility] CEBPA Mutation Detection Results Comment [facility] ([facility]) Comment: No CEBPA mutation was identified in the provided specimen of this individual. Interpretation: No CEBPA mutation was identified in the provided specimen of this individual. Results should be interpreted in conjunction with clinical and other laboratory findings for the most accurate interpretation. Background Comment [facility] ([facility]) Comment: The CEBPA (CCAAT/enhancer binding protein alpha) gene encodes a paint pourer factor important for granulocyte differentiation. CEBPA mutations are found in 6-15% of [place] acute myeloid leukemia (AML) and in 15-18% of AML with normal karyotypes. CEBPA mutations are associated with a favorable prognosis in absence of associated cytogenetic abnormalities and FLT3 internal duplication (FLT3-ITD). Germline CEBPA mutations are a cause of nonsyndromic, familial AML. Methodology Comment [facility] ([facility]) Comment: Genomic DNA was purified from the provided specimen. CEBPA gene coding region was subjected to PCR amplification and bi-directional sequencing in duplicate to identify sequence variations. This assay has a sensitivity to detect approximately 20% population of cells containing the CEBPA mutations in a background of non-mutant cells. This assay will not detect the mutation below the sensitivity of this assay. Molecular-based testing is highly accurate, but as in any laboratory test, rare diagnostic errors may occur. Reference Comment [facility]D [employer]) Comment: 1. Farida Herring et al. (2009). The favorable impact of CEBPA ?? mutations in patients with acute myeloid leukemia is only obsearved ?? in the absence of associated cytogenetic abnormalities and FLT3 ?? internal duplication. Blood 113(21):7502-5252. 2. Zion OLSON, et al. (2004). Mutation of CEBPA in familial acute myeloid ?? leukemia. N Engl J Med 351(23):7891-2569. 3. Sivakumar VIDALES et al. (2009). Prevalence and prognostic implications of ?? CEBPA mutations in pediatric acute myeloid leukemia (AML): a report ?? from the [employer]. Blood 113(26):3393-5046. Director Review Comment [facility] [employer]) Comment: Donna Dickson M.D., Ph.D., [facility] ? Airplane Flight Attendant Supervisor, Molecular Genetics ? [facility] ? [place], [place] ? Blood specimen (specimen) 04/07/2014 12:35 PM FINANCIAL DIRECTOR 04/07/2014 12:35 PM FINANCIAL DIRECTOR Narrative [facility] DOROTHY (SCOT) - 04/18/2014 7:07 PM FINANCIAL DIRECTOR Performed at: ??01 - [facility] [address] [place], [place] ??[id number] Student Support Services Director: Vin Dunne MD, Phone: ??[phone] Fawad Ruffin MD LAB - CHEMISTRY OR DERABLES [facility] DOROTHY ZEKE) * IR CENTRAL LINE INSERT TUNNEL (04/07/2014 9:48 AM FINANCIAL DIRECTOR) Anatomical Region Laterality Modality Other Impressions 04/10/2014 7:45 PM FINANCIAL DIRECTOR Impression: Placement of a ??12 Guatemalan tri-fusion tunneled catheter, via right internal jugular vein, under fluoroscopic guidance, as described above. I Dr. Ann Ross, present and provided the moderate sedation ??for the procedure. This report was approved ??by Carla Bob ?? on 04/07/2014 11:32 AM . I, Dr. KENYN ROSS M.D. have personally reviewed and interpreted this examination/study. This report was electronically signed by KENNY ROSS M.D. ??on 04/10/2014 7:45 PM . Narrative 04/10/2014 7:45 PM FINANCIAL DIRECTOR History: This is a 28-year-old female with acute leukemia requiring long-term intravenous access for induction therapy. Operators:Roxi VIDALES , IR Physician Emt I/85 Anesthesia: 1. ??Local anesthesia - 30 ml of 1 % lidocaine 2. ??Intravenous Conscious Sedation (Versed 3 mg and Fentanyl 150 mcg). Procedure: 1. ??Ultrasound-guided access of right internal jugular vein. 2. ??Placement of a 12 Guatemalan Guatemalan perfusion tunneled catheter, via right internal jugular vein under fluoroscopic guidance. Duration of the procedure: 30 minutes. Fluoroscopy Time: 1.0 minutes Procedure in detail: The procedure, risks and possible complications were explained to the patient ??in detail, and an informed consent was obtained. The patient was placed supine on the angiographic table. The patient was given The right ??neck region region was prepped and draped in the usual sterile manner. A client account specialist film of chest was obtained, which was unremarkable. The patient received Intravenous Versed and Fentanyl for conscious sedation. A qualified radiology nurse monitored the patient?s vital signs throughout the procedure. Limited ultrasound of right ??internal jugular vein demonstrated a patent and compressible vein. A dickens scale image was documented. After instillation with 1 % local lidocaine, a small incision was made in the right lower neck. ??Under real time ultrasound guidance, using a micropuncture needle, the right internal jugular Vein was accessed. ??The needle entry was documented. Following a series of exchanges, a 0.035 wire was advanced through the right atrium into the IVC.? Following administration of 1 % local lidocaine anesthesia, a skin incision was made over the right upper chest . The ? catheter was then tunneled from the incision to the venotomy site, after anesthetizing the tunnel with lidocaine. After series of dilatation, a 12.5 Guatemalan peel-away sheath and dilator combination was advanced over the guidewire, under fluoroscopic guidance. The guidewire and the dilator were removed and the catheter was advanced through the peel-away sheath with the patient suspending respiration. The peel-away was then removed. The ports were accessed, aspirated and flushed easily. Appropriate amount of heparin and was placed in each port as per the protocol. The catheter was secured. A sterile dressing was applied. A final film was obtained, which revealed the tunneled catheter, via right ??internal jugular, with its tip in the right atrium without any kink along the course of the catheter. The patient tolerated the procedure well was transferred in stable condition. There were no immediate complications associated with the procedure. Procedure Note Kenny Ross MD - 08/02/2017 History: This is a 28-year-old female with acute leukemiarequiring long-term intravenous access for induction therapy. Operators:KIRSTEN Cui Physician Emt I/85 Anesthesia: 1. Local anesthesia - 30 ml of 1 % lidocaine 2. Intravenous Conscious Sedation (Versed 3 mg and Fentanyl 150 mcg). Procedure: 1. Ultrasound-guided access of right internal jugular vein. 2. Placement of a 12 Guatemalan Guatemalan perfusion tunneled catheter, via rightinternal jugular vein under fluoroscopic guidance. Duration of the procedure: 30 minutes. Fluoroscopy Time: 1.0 minutes Procedure in detail: The procedure, risks and possible complications wereexplained to the patient in detail, and an informed consent was obtained.The patient was placed supine on the angiographic table. The patient wasgiven The right neck region region was prepped and draped in the usual sterile manner. A client account specialist film ofchest was obtained, which was unremarkable. The patient received Intravenous Versed and Fentanyl for conscioussedation. A qualified radiology nurse monitored the patient?s vital signsthroughout the procedure. Limited ultrasound of right internal jugular vein demonstrated a patentand compressible vein. A dickens scale image was documented. Afterinstillation with 1 % local lidocaine, a small incision was made in theright lower neck. Under real time ultrasound guidance, using a micropuncture needle, the right internal jugular Veinwas accessed. The needle entry was documented. Following a series ofexchanges, a 0.035 wire was advanced through the right atrium into theIVC.? Following administration of 1 % local lidocaine anesthesia, a skinincision was made over the right upper chest . The catheter was thentunneled from the incision to the venotomy site, after anesthetizing thetunnel with lidocaine. After series of dilatation, a 12.5 Guatemalan peel-away sheath and dilatorcombination was advanced over the guidewire, under fluoroscopic guidance.The guidewire and the dilator were removed and the catheter was advancedthrough the peel-away sheath with the patient suspending respiration. The peel-away was then removed. Theports were accessed, aspirated and flushed easily. Appropriate amount ofheparin and was placed in each port as per the protocol. The catheter wassecured. A sterile dressing was applied. A final film was obtained, which revealed the tunneled catheter, via rightinternal jugular, with its tip in the right atrium without any kink alongthe course of the catheter. The patient tolerated the procedure well wastransferred in stable condition. There were no immediate complications associated with theprocedure. IMPRESSION Impression: Placement of a 12 Guatemalan tri-fusion tunneled catheter, viaright internal jugular vein, under fluoroscopic guidance, as describedabove. I Dr. Ann Ross, present and provided the moderate sedation for theprocedure. This report was approved by Carla Bob on 04/07/2014 11:32AM . I, Dr. KENNY ROSS M.D. have personally reviewed and interpretedthis examination/study. This report was electronically signed by KENNY ROSS M.D. on04/10/2014 7:45 PM . Fawad Ruffin MD IR ORDERABLES * FL LUMBAR PUNCT FOR CHEMO INJ (04/06/2014 3:06 PM FINANCIAL DIRECTOR) Anatomical Region Laterality Modality Other Impressions 04/06/2014 3:55 PM FINANCIAL DIRECTOR IMPRESSION: 1. Successful lumbar puncture under fluoroscopic guidance at L3-L4. 2. Successful injection of intrathecal chemotherapeutic agent. This report was approved ??by Moe Joe ?? on 04/06/2014 3:55 PM . I, Dr. MELISSA ANN M.D. have personally reviewed and interpreted this examination/study. This report was electronically signed by MELISSA ANN M.D. ??on 04/06/2014 3:55 PM . Narrative 04/06/2014 3:55 PM FINANCIAL DIRECTOR EXAMINATION: 1. Diagnostic lumbar puncture (LP) under fluoroscopic guidance 2. Intrathecal injection of chemotherapeutic agent HISTORY: Acute leukemia TECHNIQUE: ??The risks and benefits of the lumbar puncture including, but not limited to, infection, bleeding, seizure, epidural hematoma, post spinal headache, cerebrospinal fluid (CSF) leak requiring blood patch procedure, nausea, vomiting, irritation or damage to nerves causing pain or permanent injury ??were discussed with the patient. After alternatives were discussed and the opportunity to ask questions was provided, the patient acknowledged understanding, gave verbal and written consent, and wished to proceed. Attending physician: Dr. Ann was present for the reyes portions of this procedure. The L3-4 level was localized with fluoroscopy. The skin overlying this level was then sterilely prepped, draped, and infiltrated with 1% lidocaine for local anesthesia. Under intermittent fluoroscopic guidance, a 20 gauge 3.5 inch spinal needle was inserted into the thecal sac at this level. Clear CSF was identified. A total of 18 ml of CSF was removed and placed into 3 specimen tubes. The date, patient name and dose of intrathecal chemotherapy agent was confirmed prior to injection. The patient tolerated the procedure well. The patient was then returned to her patient care floor for further observation and 3 hours of bedrest. OPENING PRESSURE: Not performed. CHEMOTHERAPEUTIC AGENT: 100 mg of cytarabine PF in 5 mL of the NaCl. FLUOROSCOPY TIME: 42 seconds Procedure Note Melissa Ann MD - 08/02/2017 EXAMINATION: 1. Diagnostic lumbar puncture (LP) under fluoroscopic guidance 2. Intrathecal injection of chemotherapeutic agent HISTORY: Acute leukemia TECHNIQUE: The risks and benefits of the lumbar puncture including, butnot limited to, infection, bleeding, seizure, epidural hematoma, postspinal headache, cerebrospinal fluid (CSF) leak requiring blood patchprocedure, nausea, vomiting, irritation or damage to nerves causing pain or permanent injury were discussed withthe patient. After alternatives were discussed and the opportunity to askquestions was provided, the patient acknowledged understanding, gaveverbal and written consent, and wished to proceed. Attending physician: Dr. Ann was present for the reyes portions of thisprocedure. The L3-4 level was localized with fluoroscopy. The skin overlying thislevel was then sterilely prepped, draped, and infiltrated with 1%lidocaine for local anesthesia. Under intermittent fluoroscopic guidance,a 20 gauge 3.5 inch spinal needle was inserted into the thecal sac at this level. Clear CSF was identified. A total of 18 ml of CSF was removed and placedinto 3 specimen tubes. The date, patient name and dose of intrathecalchemotherapy agent was confirmed prior to injection. The patient toleratedthe procedure well. The patient was then returned to her patient care floor for further observation and 3hours of bedrest. OPENING PRESSURE: Not performed. CHEMOTHERAPEUTIC AGENT: 100 mg of cytarabine PF in 5 mL of the NaCl. FLUOROSCOPY TIME: 42 seconds IMPRESSION IMPRESSION: 1. Successful lumbar puncture under fluoroscopic guidance at L3-L4. 2. Successful injection of intrathecal chemotherapeutic agent. This report was approved by Moe Joe on 04/06/2014 3:55 PM . I, Dr. MELISSA ANN M.D. have personally reviewed and interpreted thisexamination/study. This report was electronically signed by MELISSA ANN M.D. on 04/06/20143:55 PM . Fawad Ruffin MD FLUOROSCOPY ORDERA BLES * CELL COUNT CSF (04/06/2014 2:30 PM FINANCIAL DIRECTOR) Color Fluid Colorless Colorless, Straw [facility] Clarity Fluid Clear Clear [facility] Volume Fluid 7.0 mL [facility] WBC Calculation Fluid 0 0 - 5 /uL [facility] RBC Calculation 0 0 /uL [facility] Xanthochromia Fluid Negative Negative [facility] Differential Manual Differential to follow. [facility] Spinal fluid (substance) CEREBROSPINAL FLUID SPECIMEN / Unknown 04/06/2014 2:30 PM FINANCIAL DIRECTOR 04/06/2014 3:34 PM FINANCIAL DIRECTOR Fawad Ruffin MD LAB - BODY FLUID O RDERABLES Performing Organization Address [facility] Co de Phone Number [address] [phone] * CULTURE CSF+GRAM STAIN (04/06/2014 2:30 PM FINANCIAL DIRECTOR) Culture CSF No Growth at 1 week [facility] Gram Stain No Organism Seen [facility] Spinal fluid (substance) 04/06/2014 2:30 PM FINANCIAL DIRECTOR 04/06/2014 4:24 PM FINANCIAL DIRECTOR Narrative [facility] - 04/13/2014 12:23 PM FINANCIAL DIRECTOR Specimen Type->Cerebrospinal Fluid Gram Stains are routinely screened for the presence of Polymorphonuclear Cells. Fawad Ruffin MD LAB - MICROBIOLOGY ORDERABLES Performing Organization Address [facility] de Phone Number [address] [phone] * CELL COUNT W DIFF CSF (04/06/2014 2:30 PM FINANCIAL DIRECTOR) Spinal fluid (substance) CEREBROSPINAL FLUID SPECIMEN / Unknown 04/06/2014 2:30 PM [address] [facility] - 04/06/2014 4:04 PM FINANCIAL DIRECTOR The following orders were created for panel order Spinal fluid cell count. Procedure ? Abnormality ? Status ? --------- ? ------ ? SPINAL FLUID CELL COUNT[[id number]] ? Final result ? MANUAL DIFFERENTIAL FLUID[[id number]] ? Abnormal ?Final result ? Please view results for these tests on the individual orders. Fawad Ruffin MD LAB - BODY FLUID O AREN Performing Organization Address [facility] de Phone Number [facility] [address] * PROTEIN CSF (04/06/2014 2:30 PM FINANCIAL DIRECTOR) Protein CSF 41 15 - 45 mg/dL [facility] Spinal fluid (substance) CEREBROSPINAL FLUID SPECIMEN / Unknown 04/06/2014 2:30 PM FINANCIAL DIRECTOR 04/07/2014 7:42 AM FINANCIAL DIRECTOR Fawad Ruffin MD LAB - BODY FLUID O AREN Performing Organization Address [facility] de Phone Number [address] [phone] * GLUCOSE CSF (04/06/2014 2:30 PM FINANCIAL DIRECTOR) Glucose CSF 52 40 - 70 mg/dL [facility] Spinal fluid (substance) CEREBROSPINAL FLUID SPECIMEN / Unknown 04/06/2014 2:30 PM FINANCIAL DIRECTOR 04/07/2014 7:42 AM FINANCIAL DIRECTOR Fawad Ruffin MD LAB - BODY FLUID O AREN Performing Organization Address [facility] de Phone Number [address] [phone] * FLT3 MUTATIONS [id number] PANEL (04/06/2014 10:25 AM FINANCIAL DIRECTOR) Status Comment [facility] ([facility] Comment:Reference lab report sent via fax. Blood specimen (specimen) 04/06/2014 10:25 AM FINANCIAL DIRECTOR 04/06/2014 10:41 AM FINANCIAL DIRECTOR Narrative [facility] ([facility]) - 04/18/2014 12:45 PM FINANCIAL DIRECTOR Performed at: ??01 - [facility] [address] [place] [address] ??[id number] Student Support Services Director: Hetal Glass , Phone: ??[phone] Fawad Ruffin MD LAB - CHEMISTRY OR DERABLES [facility] ([facility] * PATHOLOGY PERIPHERAL SMEAR REVIEW (04/06/2014 3:00 AM FINANCIAL DIRECTOR) Pathology Diff Review DIFFERENTIAL REVIEW - CONFIRMED DIFFERENTIAL REVIEW - CONFIRMED [facility] Comment:Agree with different ial counts. Increased blasts are identified. Recommend correlation with flow cytometry and bone marrow biopsy. Blood specimen (specimen) BLOOD SPECIMEN / Unknown 04/06/2014 3:00 AM FINANCIAL DIRECTOR 04/06/2014 4:18 AM FINANCIAL DIRECTOR Fawad Ruffin MD LAB - PATHOLOGY/CY TOLOGY ORDERABLES [facility] [address] [phone] Care Teams Ultrasound Specialist Relationship Specialty Start Date End Date Lelo Lopez MD [address] [place] [address] PCP - General 10/20/17 Fawad Ruffin MD Hematology and Oncology 09/23/17 Tyrell Diaz Update Information Referring Physician Oncology 09/25/17 Mally Rogers MD [facility] [place] [address] Hematology and Oncology 09/25/17 Angelica Watson MD [address] [place] [address] Hematology and Oncology 09/25/17 Natalie Tian, RN Registered Nurse 09/25/17 Latha Ordoñez, PLANER MILL GRADER-PREMIUM AUDITOR [address] [facility] 2nd [place] [address] Oncology 09/25/17 Leena Borden, VICE PRESIDENT OF DEVELOPMENT Bleach Chlorinator 09/25/17 Flaquita Manning, PharmD 09/25/17 Carolina Oglesby 10/20/17 Tarsha Cha APRN-CAPITAL CAMPAIGN [facility] [address] DIV OF HEMATOLOGY & [place] [address] Nurse Practitioner Family 10/04/20 Socorro Galdamez APRN-CAPITAL CAMPAIGN [facility] [address] DIV OF HEMATOLOGY & [place] [address] Nurse Practitioner 10/04/20 Jennifer Fung MD [address] DIV OF HEMATOLOGY & [place] [address] Hematology and Oncology 11/23/21
--- OUTSIDE RECORDS SUMMARY | 2024-05-27 23:20 | XMS_ITS ---
Author Organization [facility] Address [address] [facility] [place] [address] Care Team Providers Care Lead Recreation Assistant Name Role Phone Fawad Ruffin MD Unavailable [phone] Tyrell Diaz Unavailable Unavailab Mally [place] MD Unavailable [phone] Angelica Watson MD Unavailable [phone] Natalie Tian RN Unavailable UnavailLatha Box SENIOR DATA MINING ANALYST-CURTAIN STRETCHER Unavailable [phone] Leena Borden POWER ORIGINATOR Unavailable Unavailable Flaquita Manning PharmD Unavailable Unavaila Carolina Cheng Unavailable Yana Lelo Lira MD Primary Care Provider [phone] Tarsha Cha SENIOR DATA MINING ANALYST-WAITER/WAITRESS TAKE OUT Unavailable [phone] Socorro Galdamez SENIOR DATA MINING ANALYST-WAITER/WAITRESS TAKE OUT Unavailable [phone] Jennifer Fung MD Unavailable Active Problems Problem Noted Date Diagnosed Date [...] 08/08/2017 Anxiety disorder 08/08/2017 Backache 08/08/2017 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 His gestational 1. Steroid induced. His gestational 1. 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 Past Plans No past plan information found. Radiation Treatments * No radiation treatments are documented for this patient in [facility]. Treatments may have been administered in another system. Lifetime Dose Tracking * Chemical Lifetime Dose Automatic Entry Manual Entr y Idarubicin 36 mg/m2 (64.8 mg) 0 mg/m2 (0 mg) 36 mg/m 2 (64.8 mg) Resolved Problems Problem Noted Date Diagnosed Date Resolved Date Cough 01/27/2022 02/24/2022 Viral pneumonia 01/27/2022 02/26/2022 Fever 08/08/2017 08/22/2017 Severe episode of recurrent major depressive disorder, without psychotic features 08/08/2017
--- OUTSIDE RECORDS SUMMARY | 2024-05-27 23:20 | XMS_ITS | Encounter Summary ---
Author Organization [facility] Address [address] [place] [address] Care Team Providers Care Assessment Clinician Name Role Phone Unknown, Provider Primary Care Provider UnavailFawad Atwood MD Unavailable [phone] Kary Logan RN Unavailable Unavailab Tyrell Reed Unavailable Unavailab Mally Edawrd MD Unavailable [phone] Angelica Watson MD Unavailable [phone] Livier Ying RN Unavailable Unavailable Natalie Tian RN Unavailable UnavailLatha Box COMMUNITY REINVESTMENT ACT OFFICER-ETHYLENE OXIDE PANELBOARD OPERATOR Unavailable [phone] Kary Logan RN Unavailable Unavailab Lelo Greene COMMUNITY REINVESTMENT ACT OFFICER-DIESEL FITTER MECHANIC Unavailable [phone] Theodore Oswald PA-C Unavailable Unavail able Meghan Alexander BUFFING WHEEL INSPECTOR Unavailable Unavailable Leena Borden LICENSED PSYCHIATRIC TECHNICIAN Unavailable Unavailable Flaquita Manning PharmD Unavailable UnavailMeghan Siddiqi PharmD Unavailable UnavailAleah Cormier COMMUNITY REINVESTMENT ACT OFFICER-DIESEL FITTER MECHANIC Unavailable [phone] Selma Garcia RN Unavailable Unavailable Rody King RN Unavailable UnavailAron Jolley RN Unavailable Unavailable Ligia Rivera MA Unavailable Unavailable Ani Lira Unavailable Unavailable Carolina Oglesby Unavailable Yana Lelo Lira MD Primary Care Provider [phone] Марина Lebron Unavailable Unavailable Tarsha Cha COMMUNITY REINVESTMENT ACT OFFICER-DIESEL FITTER MECHANIC Unavailable [phone] Socorro Galdamez COMMUNITY REINVESTMENT ACT OFFICER-DIESEL FITTER MECHANIC Unavailable [phone] Jennifer Fung MD Unavailable Encounter Details Date Type Department Care Team (Late st Contact Info) Description 09/19/2014 Lab Requisition [facility] - Lab Cytogenetics [address] [place] [address] Juanito Pimentel MD [address] [place] [address] AML (acute myeloblastic leukemia) (HCC) [...] Associated Diagnosis Comments CYTOGENETICS CANCER PANEL Routine 09/19/2014 12:00 AM CDT AML (acute myeloblastic leukemia) [ICD-9-CM] documented in this encounter Results * CYTOGENETICS CANCER PANEL (09/19/2014 12:00 AM CDT) Indication for Study History of AML (Post-Transplant MALE Donor) 5 9:20 AM CDT [facility] Results Cytogenetics Analysis of 500 interphase cells from the bone marrow hybridized to dual labeled X and Y specific alpha satellite probes* showed the following results: nuc aidan //(DXZ1,DYZ3)x1[498/ 500] 99% donor 5 9:20 AM CDT [facility] Interpretation Fluorescence in-situ hybridization study using X(DXZ1) and Y(DYZ1/DYZ3) specific alpha satellite probes showed greater than 99% XY (donor cells) and 0% XX (patient cells). The remaining percentage of cells had one signal of X of unknown origin in less than 1% of cells. No chromosome analysis was performed because greater than 99% of interphase cells were found to be of donor origin. 5 9:20 AM [facility] CYTOGENOMIC LAB Disclaimer *This test was developed, and its performance characteristics determined by [facility] Molecular Cytogenetics Laboratory as required by CLIA [...] by correlating pathology with cytogenetic findings. 5 9:20 AM [facility] CYTOGENOMIC LAB Historical Cytogenomic Report [id number] on 09/15/2014 Results: Analysis of 500 interphase cells from the bone marrow hybridized to dual labeled X and Y specific alpha satellite probes* showed the following results: nuc aidan //(DXZ1,DYZ3)x1[497/ 500] 99% donor Interpretation: Fluorescence in-situ hybridization study using X(DXZ1) and Y(DYZ1/DYZ3) specific alpha satellite probes showed 99% XY (donor cells) and 0% XX (patient cells). The remaining percentage of cells had one signal of X of unknown origin in less than 1% of cells. No chromosome analysis was performed because 99% of interphase cells were found to be of donor origin. Last verified: 09/15/2014 1742 by Vivian Ho, PhD [facility] [id number] on 08/02/2014 Results: Analysis of 500 interphase cells from the bone marrow hybridized to dual labeled X and Y specific alpha satellite probes* showed the following results: nuc aidan //(DXZ1,DYZ3)x1[499/ 500] 99% donor Interpretation: Fluorescence in-situ hybridization study using X(DXZ1) and Y(DYZ1/DYZ3) specific alpha satellite probes showed 99% XY (donor cells) and 0% XX (patient cells). The remaining percentage of cells had one signal of X of unknown origin in less than 1% of cells. No chromosome analysis was performed because 99% of interphase cells were found to be of donor origin. Last verified: 08/02/2014 1158 by Megan Larkin, PhD [facility] [id number] on 07/13/2014 Results: Analysis of 500 interphase cells from the peripheral oncology blood hybridized to dual labeled X and Y specific alpha satellite probes* showed the following results: nuc aidan(DXZ1x2)[2/500]// (DXZ1,DYZ3)x1[495/50 0] 99% donor Interpretation: Fluorescence in-situ hybridization study using X(DXZ1) and Y(DYZ1/DYZ3) specific alpha satellite probes showed 99% XY (donor cells) and less than 1% XX (patient cells). The remaining percentage of cells had one signal of X of unknown origin in less than 1% of cells. No chromosome analysis was performed because 99% of interphase cells were found to be of donor origin. Last verified: 07/13/2014 1330 by Megan Larkin, PhD [facility] [id number] on 06/27/2014 Results: Analysis of 500 interphase cells from [...] were found to be of donor origin. Last verified: 06/27/2014 1348 by Megan Larkin, PhD [facility] [id number] on 05/09/2014 Results: Fluorescence In-Situ Hybridization (FISH): Analysis of 500 interphase cells hybridized with specific labeled fluorescent probes*: break apart MLL probes* directed onto 11q23 showed the following results: nuc aidan (MLLx2)[467/500] Normal Interpretation: To rule out minimal residual disease of the previously identified clonal abnormality (see below;[id number]), FISH was performed using specific probes* as listed in the result section. FISH was negative indicating a possible disease remission. The previous study ([id number])showed a separation of the MLL signals in less than 1% of cells. Clinicopathological correlation is suggested. Last verified: 05/09/2014 1715 by Vivian Ho, PhD [facility] [id number] on 04/20/2014 Results: Fluorescence In-Situ Hybridization (FISH): Analysis of 500 interphase cells hybridized with specific labeled fluorescent probes*: break apart MLL probes* directed onto 11q23 showed the following results: nuc aidan (MLLx2)(5'MLL sep 3'MLLx1)[4/500] Abnormal showing MLL abnormality in less than 1% of cells. Interpretation: To rule out a minimal residual disease of the previously identified clonal abnormality (see below;[id number]), FISH was performed using specific probes* as [...] with other clinicopathological findings. The previous study (WG ) showed a separation of the signals in 85% of cells. at 2005 on 04/06/2014 Results: Fluorescence In-Situ Hybridization (FISH): [...] onto 11q23 and 16q22, dual labeled probes* D5S23/Q6J091 directed onto 5p15.2/5q31, dual labeled probes* CEP7/X5A746 directed onto 7 cent/7q31, dual labeled CEP8/E25F989 directed onto 8cent/20q11.2, and dual labeled dual fusion ETO/AML1 directed onto 8q22/21q22 showed the following results: nuc aidan (EVI1x2)[196/200],(D 5S23,G7M687,EGR1)x2[ 197/200],(D7Z1,D7S48 6)x2[195/200],(CEP8, W96A590)x2[187/200], (ETO,AML1)x2[190/200 ],(MLLx2)(5'MLL sep 3'MLLx21)[85/100],(F OXO1x2)[192/200],(CB FBx2)[190/200] Abnormal [...] associated with ALL. Clinicopathological correlation is suggested. at 1401 Preliminary result electronically signed by Megan Larkin, PhD JUAN on 04/08/2014 at 1533 Preliminary result electronically signed by Megan Larkin, PhD on 04/07/2014 at 1306 09/21/ 5 9:20 AM CDT [facility] Client Information [facility] ??- ??[id number] [facility] Lab Numbers: [id number] FISH 5 9:20 AM CDT [facility] Other BLOOD SPECIMEN / Unknown 09/19/2014 09/19/2014 4:29 PM CDT Juanito Pimentel MD LAB - PATHOLOGY/CYTO LOGY ORDERABLES [facility] [place] [address] documented in this encounter Visit Diagnoses Diagnosis AML (acute myeloblastic leukemia) (HCC) Acute myeloid leukemia, without mention of having achieved remission documented in this encounter Additional Health Concerns Infection Onset Date Last Indicated Resolved Time COVID-19 Under Investigation 01/27/2022 01/27/2022 01/27/2022 9:08 PM CDT COVID-19 Under Investigation 01/28/2022 01/28/2022 01/28/2022 3:39 PM CDT documented as of this encounter Care Teams Assessment Clinician Relationship Specialty Start Date End Date Unknown, Provider PCP - General 08/18/17 10/19/17 Lelo Lopez MD [address] [place] [address] PCP - General 10/20/17 Fawad Ruffin MD Hematology and Oncology 09/23/17 Kary Logan RN 09/23/17 09/24/17 Tyrell Diaz Update Information Referring Physician Oncology 09/25/17 Mally Rogers MD [address] [place], [place] [id number] Hematology and Oncology 09/25/17 Angelica Watson MD [address] [place], [place] [address] Hematology and Oncology 09/25/17 Livier Ying, RN 09/25/17 11/22/20 Natalie Tian, RN Registered Nurse 09/25/17 Latha Ordoñez, COMMUNITY REINVESTMENT ACT OFFICER-ETHYLENE OXIDE PANELBOARD OPERATOR [address] [place] [address] Oncology 09/25/17 Kary Logan, RN 09/25/17 11/22/20 Lelo Becerra, COMMUNITY REINVESTMENT ACT OFFICER-DIESEL FITTER MECHANIC [address] [address] Family Medicine 09/25/17 11/22/20 Theodore Oswald PA-C [address] [place] [address] Physician Multimedia Coordinator 09/25/17 Meghan Jurado, BUFFING WHEEL INSPECTOR Prep Person 09/25/17 11/22/20 Leena Borden, LICENSED PSYCHIATRIC TECHNICIAN Prep Person 09/25/17 Flaquita Manning, PharmD 09/25/17 Meghan Maya, PharmD 09/25/17 06/30/19 Aleah Giordano, COMMUNITY REINVESTMENT ACT OFFICER-DIESEL FITTER MECHANIC Family Medicine 09/25/17 11/22/20 Selma Garcia, VALERIA 10/20/17 11/22/20 Rody King, VALERIA 10/20/17 11/22/20 Aron Powell, VALERIA 10/20/17 06/30/19 Ligia Rivera MA 10/20/17 06/30/19 Ani Lira 10/20/17 11/22/20 Carolina Oglesby 10/20/17 Марина Lebron Special Programs Director Psychiatry 10/20/17 08/10/18 Tarsha Cha COMMUNITY REINVESTMENT ACT OFFICER-DIESEL FITTER MECHANIC [facility] [facility] & [place] [address] Nurse Practitioner Family 10/04/20 Socorro Galdamez APRN-NARINDER [address] OF HEMATOLOGY & [place] [address] Nurse Practitioner 10/04/20 Jennifer Fung MD [address] DIV OF HEMATOLOGY & [place] [address] Hematology and Oncology 11/23/21 documented as of this encounter
--- OUTSIDE RECORDS SUMMARY | 2024-05-27 23:20 | XMS_ITS | Encounter Summary ---
Author Organization [facility] Address [address] [place] [address] Care Team Providers Care Crnp Name Role Phone Unknown, Provider Primary Care Provider UnavailFawad Atwood MD Unavailable [phone] Kary Logan RN Unavailable Unavailab Tyrell Reed Unavailable Unavailab Mally Edward MD Unavailable [phone] Angelica Watson MD Unavailable [phone] Livier Ying RN Unavailable Unavailable Natalie Tian RN Unavailable UnavailLatha Box DIRECTOR OF BUSINESS APPLICATIONS-ENDOSCOPY TECHNICIAN Unavailable [phone] Kary Logan RN Unavailable Unavailab Lelo Greene DIRECTOR OF BUSINESS APPLICATIONS-MAIL CARRIERS SUPERVISOR Unavailable [phone] Theodore Oswald PA-C Unavailable Unavail able Meghan Alexander REGIONAL LIAISON Unavailable Unavailable Leena Borden COLOR STRIPPER Unavailable Unavailable Flaquita Manning PharmD Unavailable UnavailMeghan Siddiqi PharmD Unavailable UnavailAleah Cormier DIRECTOR OF BUSINESS APPLICATIONS-MAIL CARRIERS SUPERVISOR Unavailable [phone] Selma Garcia RN Unavailable Unavailable Rody King RN Unavailable UnavailAron Jolley RN Unavailable Unavailable Ligia Rivera MA Unavailable Unavailable Ani Lira Unavailable Unavailable Carolina Oglesby Unavailable Yana Lelo Lira MD Primary Care Provider [phone] Марина Lebron Unavailable Unavailable Tarsha Cha DIRECTOR OF BUSINESS APPLICATIONS-MAIL CARRIERS SUPERVISOR Unavailable [phone] GaldamezSocorro DIRECTOR OF BUSINESS APPLICATIONS-MAIL CARRIERS SUPERVISOR Unavailable [phone] Jennifer Fung MD Unavailable Encounter Details Date Type Department Care Team (Late st Contact Info) Description 10/12/2014 Lab Requisition [facility] - Lab Cytogenetics [address] [place] [address] Mally Rogers MD [address] [facility] [place] [address] AML (acute myeloblastic leukemia) (HCC) Social History [...] Associated Diagnosis Comments CYTOGENETICS CANCER PANEL Routine 10/12/2014 12:00 AM CDT AML (acute myeloblastic leukemia) [ICD-9-CM] documented in this encounter Results * CYTOGENETICS CANCER PANEL (10/12/2014 12:00 AM CDT) Indication for Study 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 No chromosome analysis was performed because greater than 99% of interphase cells were found to be of donor origin. This percentage has remained the same throughout several FISH analyses (see below). 5 2:28 PM [facility]LEC[facility] CYTOGENOMIC LAB Disclaimer *This test was developed, and its performance characteristics determined by [facility] Molecular Cytogenetics Laboratory as required by CLIA '88 Regulations. It has not been cleared or approved for specific uses by the U.S. Food and Drug Administration. The FDA has determined that such clearance or approval is not necessary. This test is used for clinical purposes. It should not be reported as investigational or for research. 5 2:28 PM [facility] CYTOGENOMIC LAB Historical Cytogenomic Report [id number] on 09/19/2014: Results Analysis of 500 interphase cells from the bone marrow hybridized to dual labeled X and Y specific alpha satellite probes* showed the following results: nuc aidan //(DXZ1,DYZ3)x1[498/ 500] 99% donor . Interpretation Fluorescence in-situ [...] found to be of donor origin. at 0920 . Disclaimer *This test was developed, and its performance characteristics determined by [facility] Molecular Cytogenetics Laboratory as required by [...] with cytogenetic findings. . Historical Cytogenomic Report [id number] on 09/15/2014 Results: Analysis of 500 interphase [...] verified: 09/15/2014 1742 by Vivian Ho, PhD [facility] [id number] on 08/02/2014 Results: Analysis of 500 interphase [...] verified: 08/02/2014 1158 by Megan Larkin, PhD [facility] [id number] on 07/13/2014 Results: Analysis of 500 interphase [...] verified: 07/13/2014 1330 by Megan Larkin, PhD [facility] [id number] on 06/27/2014 Results: Analysis of 500 interphase [...] verified: 06/27/2014 1348 by Megan Larkin, PhD [facility] [id number] on 05/09/2014 Results: Fluorescence In-Situ Hybridization (FISH): Analysis of 500 interphase cells hybridized with specific labeled fluorescent probes*: break apart MLL probes* directed onto 11q23 showed the following results: nuc aidan (MLLx2)[467/500] Normal Interpretation: To rule out minimal residual disease of the previously identified clonal abnormality (see below;[id number]), FISH was performed using specific probes* as listed in the result section. FISH was negative indicating a possible disease remission. The previous study ([id number])showed a separation of the MLL signals in less than 1% of cells. Clinicopathological correlation is suggested. Last verified: 05/09/2014 1715 by Vivian Ho, PhD [facility] on 04/20/2014 Results: Fluorescence In-Situ Hybridization (FISH): [...] onto 11q23 and 16q22, dual labeled probes* D5S23/J1R816 directed onto 5p15.2/5q31, dual labeled probes* CEP7/T1Q507 directed onto 7 cent/7q31, dual labeled CEP8/H96C887 directed onto 8cent/20q11.2, and dual labeled dual fusion ETO/AML1 directed onto 8q22/21q22 showed the following results: nuc aidan (EVI1x2)[196/200],(D 5S23,G1C168,EGR1)x2[ 197/200],(D7Z1,D7S48 6)x2[195/200],(CEP8, L03T034)x2[187/200], (ETO,AML1)x2[190/200 ],(MLLx2)(5'MLL sep 3'MLLx21)[85/100],(F OXO1x2)[192/200],(CB FBx2)[190/200] Abnormal [...] result electronically signed by Megan Larkin, PhD AB on 04/08/2014 at 1533 Preliminary result electronically signed by Megan Larkin, PhD AB on 04/07/2014 at 1306 . Client Information [facility] - [id number] [facility] Lab Numbers: [id number] FISH 5 2:28 PM CDT [facility] Client Information [facility] ??- ??[id number] Lab# [id number]; [id number] Chroms 5 2:28 PM CDT [facility] Other BONE MARROW SPECIMEN / Unknown 10/12/2014 10/12/2014 2:42 PM CDT Mally Rogers MD LAB - PATHOLOGY/CYTO LOGY ORDERABLES Performing Organization Address City/State/[facility] Co de Phone Number [facility] [address] [place] [address] documented in this encounter Visit Diagnoses Diagnosis AML (acute myeloblastic leukemia) (HCC) Acute myeloid leukemia, without mention of having achieved remission documented in this encounter Additional Health Concerns Infection Onset Date Last Indicated Resolved Time COVID-19 Under Investigation 01/27/2022 01/27/2022 01/27/2022 9:08 PM CDT COVID-19 Under Investigation 01/28/2022 01/28/2022 01/28/2022 3:39 PM CDT documented as of this encounter Care Teams Crnp Relationship Specialty Start Date End Date Unknown, Provider PCP - General 08/18/17 10/19/17 Lelo Lopez MD [address] [place] [address] PCP - General 10/20/17 Fawad Ruffin MD Hematology and Oncology 09/23/17 Kary Logan, RN 09/23/17 09/24/17 Tyrell Diaz Update Information Referring Physician Oncology 09/25/17 Mally Rogers MD [address] [place] [address] Hematology and Oncology 09/25/17 Angelica Watson MD [facility] [place] [address] Hematology and Oncology 09/25/17 Livier Ying, RN 09/25/17 11/22/20 Natalie Tian, RN Registered Nurse 09/25/17 Latha Ordoñez, DIRECTOR OF BUSINESS APPLICATIONS-ENDOSCOPY TECHNICIAN [facility] [facility] [address] [place] [address] Oncology 09/25/17 Kary Logan, RN 09/25/17 11/22/20 Lelo Becerra APRN-MAIL CARRIERS SUPERVISOR [facility] [facility] [address] [place] [address] Family Medicine 09/25/17 11/22/20 Theodore Oswald PA-C [address] [place] [address] Physician Newspaper Subscription Solicitor 09/25/17 0 Meghan Alexander, REGIONAL LIAISON Hat Blocking Machine Operator 09/25/17 11/22/20 Leena Borden, COLOR STRIPPER Hat Blocking Machine Operator 09/25/17 Flaquita Manning, PharmD 09/25/17 Meghan Maya, PharmD 09/25/17 06/30/19 Aleah Giordano, DIRECTOR OF BUSINESS APPLICATIONS-MAIL CARRIERS SUPERVISOR Family Medicine 09/25/17 11/22/20 Selma Garcia, RN 10/20/17 11/22/20 Rody King, RN 10/20/17 11/22/20 Arno Powell, RN 10/20/17 06/30/19 Ligia Rivera MA 10/20/17 06/30/19 Ani Lira 10/20/17 11/22/20 Carolina Oglesby 10/20/17 Марина Lebron Cooler Tender Psychiatry 10/20/17 08/10/18 Tarsha Cha, DIRECTOR OF BUSINESS APPLICATIONS-MAIL CARRIERS SUPERVISOR [address] OF HEMATOLOGY & [place] [address] Nurse Practitioner Family 10/04/20 Socorro Galdamez, DIRECTOR OF BUSINESS APPLICATIONS-MAIL CARRIERS SUPERVISOR [address] DIV OF HEMATOLOGY & [place] [address] Nurse Practitioner 10/04/20 Jennifer Fung MD [address] DIV OF HEMATOLOGY & [place] [address] Hematology and Oncology 11/23/21 documented as of this encounter
--- OUTSIDE RECORDS SUMMARY | 2024-05-27 23:20 | XMS_ITS | Encounter Summary ---
Author Organization [facility] Address [address] [facility] [place] [address] Care Team Providers Care Quality Improvement Analyst Name Role Phone Unknown, Provider Primary Care Provider UnavailFawad Atwood MD Unavailable [phone] Kray Logan RN Unavailable Unavailab Tyrell Reed Unavailable Unavailab Mally Edward MD Unavailable [phone] Angelica Watson MD Unavailable [phone] Livier Ying RN Unavailable Unavailable Natalie Tian RN Unavailable UnavailLatha Box WASTEWATER MANAGER-OCCUPATIONAL THERAPY AIDES TEACHER Unavailable [phone] Kary Logan RN Unavailable Unavailab Lelo Greene WASTEWATER MANAGER-SPECIMEN ACCESSIONER Unavailable [phone] Theodore Oswald PA-C Unavailable Unavail able Meghan Alexander SMALL PRODUCTS I ASSEMBLER Unavailable Unavailable Leena Borden SHEEP OR CALF GRADER Unavailable Unavailable Flaquita Manning PharmD Unavailable UnavailMeghan Siddiqi PharmD Unavailable UnavailAleah Cormier WASTEWATER MANAGER-SPECIMEN ACCESSIONER Unavailable [phone] Selma Garcia RN Unavailable Unavailable Rody King RN Unavailable UnavailAron Jolley RN Unavailable Unavailable Ligia Rivera MA Unavailable Unavailable Ani Lira Unavailable Unavailable Carolina Oglesby Unavailable Yana Lelo Lira S MD Primary Care Provider Марина Lebron Unavailable Unavailable Tarsha Cha WASTEWATER MANAGER-SPECIMEN ACCESSIONER Unavailable [phone] Socorro Galdamez WASTEWATER MANAGER-SPECIMEN ACCESSIONER Unavailable [phone] Jennifer Fung MD Unavailable Reason for Visit * Reason Onset Date Comments Scheduling 11/19/2016 left VM Encounter Details Date Type Department Care Team (Late st Contact Info) Description 11/19/2016 Telephone [facility] MATERNAL/ EVALUATION UNIT [address] [facility] [place] [address] WilfredRylee Scheduling (left VM) Social History Tobacco Use Types Packs/Day Years Used Date Smoking Tobacco: Never Assessed Alcohol Use Standard Drinks/Week Comments No 0 (1 standard drink = 0.6 oz pur e alcohol) Sex and Gender Information Value Date Recorded Sex Assigned at Not on file Gender Identity Not on file Sexual Orientation Not on file documented as of this encounter Plan of Treatment Not on file documented as of this encounter Visit Diagnoses Not on filedocumented in this encounter Additional Health Concerns Infection Onset Date Last Indicated Resolved Time COVID-19 Under Investigation 01/27/2022 01/27/2022 01/27/2022 9:08 PM CDT COVID-19 Under Investigation 01/28/2022 01/28/2022 01/28/2022 3:39 PM CDT documented as of this encounter Care Teams Quality Improvement Analyst Relationship Specialty Start Date End Date Unknown, Provider PCP - General 08/18/17 10/19/17 Lelo Lopez MD [address] [place] [address] PCP - General 10/20/17 Fawad Ruffin MD Hematology and Oncology 09/23/17 Kary Logan, RN 09/23/17 09/24/17 Tyrell Diaz Update Information Referring Physician Oncology 09/25/17 Mally Rogers MD [address] [place] [address] Hematology and Oncology 09/25/17 Angelica Watson MD [facility] [place] [address] Hematology and Oncology 09/25/17 Livier Ying, RN 09/25/17 11/22/20 Natalie Tian, RN Registered Nurse 09/25/17 Latha Ordoñez, WASTEWATER MANAGER-OCCUPATIONAL THERAPY AIDES TEACHER [address] [place] [address] 2nd [place] [address] Oncology 09/25/17 Kary Logan, RN 09/25/17 11/22/20 Lelo Becerra, WASTEWATER MANAGER-SPECIMEN ACCESSIONER [address] [place] [address] [place] [address] Family Medicine 09/25/17 11/22/20 Theodore Oswald PA-C [address] [place] [address] [place] [address] Physician Kitchen Mechanic 09/25/17 Meghan Jurado, SMALL PRODUCTS I ASSEMBLER Personal Caregiver 09/25/17 11/22/20 Leena Borden, SHEEP OR CALF GRADER Personal Caregiver 09/25/17 Flaquita Manning, PharmD 09/25/17 Meghan Maya, PharmD 09/25/17 06/30/19 Aleah Giordano, WASTEWATER MANAGER-SPECIMEN ACCESSIONER Family Medicine 09/25/17 11/22/20 Selma Garcia, VALERIA 10/20/17 11/22/20 Rody King, VALERIA 10/20/17 11/22/20 Aron Powell, VALERIA 10/20/17 06/30/19 Ligia Rivera MA 10/20/17 06/30/19 Ani Lira 10/20/17 11/22/20 Carolina Oglesby 10/20/17 Марина Lebron Awning Craftsperson Psychiatry 10/20/17 08/10/18 Tarsha Cha APRN-CNP [address] DIV OF HEMATOLOGY & [place] [address] Nurse Practitioner Family 10/04/20 Socorro Galdamez APRN-CNP [address] DIV OF HEMATOLOGY & [place] [address] Nurse Practitioner 10/04/20 Jennifer Fung MD [address] DIV OF HEMATOLOGY & [place] [address] Hematology and Oncology 11/23/21 documented as of this encounter
--- OUTSIDE RECORDS SUMMARY | 2024-05-27 23:20 | XMS_ITS | Encounter Summary ---
Author Organization [facility] Address [address] [facility] [place] [address] Care Team Providers Care Finished Yarn Examiner Name Role Phone Unknown, Provider Primary Care Provider UnavailFawad Atwood MD Unavailable [phone] Kary Logan RN Unavailable Unavailab Tyrell Reed Unavailable Unavailab Mally Edward MD Unavailable [phone] Angelica Watson MD Unavailable [phone] Livier Ying RN Unavailable Unavailable Natalie Tian RN Unavailable UnavailLatha Box CONCRETE PUDDLER-HAT BINDER Unavailable [phone] Kary Logan RN Unavailable Unavailab Lelo Greene CONCRETE PUDDLER-CONE MARKER Unavailable [phone] Theodore Oswald PA-C Unavailable Unavail able Meghan Alexander LETTERPRESS SETTER Unavailable Unavailable Leena Borden ASSEMBLER BODY Unavailable Unavailable Flaquita Manning PharmD Unavailable UnavailMeghan Siddiqi PharmD Unavailable UnavailAleah Cormier CONCRETE PUDDLER-CONE MARKER Unavailable [phone] Selma Garcia RN Unavailable Unavailable Rody King RN Unavailable UnavailAron Jolley RN Unavailable Unavailable Ligia Rivera MA Unavailable Unavailable Ani Lira Unavailable Unavailable Carolina Oglesby Unavailable Yana Lelo Liar MD Primary Care Provider [phone] BernardinoМарина Unavailable Unavailable Tarsha Cha CONCRETE PUDDLER-CONE MARKER Unavailable [phone] GaldamezSocorro CONCRETE PUDDLER-CONE MARKER Unavailable [phone] Jennifer Fung MD Unavailable Encounter Details Date Type Department Care Team (Late st Contact Info) Description 06/07/2015 Lab Requisition [facility] - Lab Cytogenetics [address] [place] [address] Mally Rogers MD [address] [facility] [place] [address] Social History Tobacco Use Types Packs/Day Years [...] Associated Diagnosis Comments CYTOGENETICS CANCER PANEL Routine 06/07/2015 12:00 AM RAIL CREW MEMBER documented in this encounter Results * CYTOGENETICS CANCER PANEL (06/07/2015 12:00 AM RAIL CREW MEMBER) Indication for Study History of AML / Post Transplant Male Donor 6 11:28 AM [facility] MOLECULAR CYTOGENOMIC LAB Results Cytogenetics Fluorescence In-Situ Hybridization (FISH): Analysis of 500 interphase cells from the bone marrow hybridized to dual labeled X and Y specific alpha satellite probes* showed the following results: nuc aidan(DXZ1x2)[1/500]// (DXZ1,DYZ3)x1[499/50 0] >99% donor 6 11:28 AM [facility] MOLECULAR CYTOGENOMIC LAB Interpretation Fluorescence in-situ hybridization study using X(DXZ1) and Y(DYZ1/DYZ3) specific alpha satellite probes showed greater than 99% XY (donor cells) and less than 1% XX (patient cells).??No chromosome analysis was performed because greater than 99% of interphase cells were found to be of donor origin. This percentage has remained the same throughout several FISH analyses (see below). 6 11:28 AM [facility] MOLECULAR CYTOGENOMIC LAB Disclaimer *This test was developed, and its performance characteristics determined by [facility] Molecular Cytogenetics Laboratory as required by CLIA '88 Regulations. It has not been cleared or approved for specific uses by the U.S. Food and Drug Administration. The FDA has determined that such clearance or approval is not necessary. This test is used for clinical purposes. It should not be reported as investigational or for research. 6 11:28 AM [facility] MOLECULAR CYTOGENOMIC LAB Historical Cytogenomic Report [id number] on 12/16/14 Results ?? Fluorescence In-Situ Hybridization (FISH): Analysis of 500 interphase cells from the bone marrow hybridized to dual labeled X and Y specific alpha satellite probes* showed the following results: nuc aidan(DXZ1x2)[1/500]// (DXZ1,DYZ3)x1[497/50 0] 99% donor ?? . ?? Interpretation ?? Fluorescence in-situ hybridization study using X(DXZ1) and Y(DYZ1/DYZ3) specific alpha satellite probes showed greater than 99% XY (donor cells) and less than 1% XX (patient cells). The remaining percentage of cells had one signal of X in less than 1% of cells of unknown origin. ??No chromosome analysis was performed because greater than 99% of interphase cells were found to be of donor origin. This percentage has remained the same throughout several FISH analyses (see below). ?? at 1056 ?? . ?? Disclaimer ?? *This test was developed, and its performance characteristics determined by [facility] Molecular Cytogenetics Laboratory as [...] and monosomy/deletion is 5 to 8% for no??FFPE specimen and 20% for FFPE specimen. ??Efficiency [...] performed by correlating pathology with cytogenetic findings. ?? . ?? Historical Cytogenomic Report ?? Historical Cytogenomic Report [id number] on 10/13/2014: Results Analysis of 500 interphase cells from the bone marrow hybridized to dual labeled X and Y specific alpha satellite probes* showed the following results: nuc aidan(DXZ1x2)[3500]// (DXZ1,DYZ3)x1[497/50 0] 99% donor [id number] on 09/19/2014: Results Analysis of 500 interphase cells from the bone marrow hybridized to dual labeled X and Y specific alpha satellite probes* showed the following results: nuc aidan //(DXZ1,DYZ3)x1[498/ 500] 99% donor --------- [id number] on 09/15/2014 Results: Analysis of 500 interphase cells from the bone marrow hybridized to dual labeled X and Y specific alpha satellite probes* showed the following results: nuc aidan //(DXZ1,DYZ3)x1[497/ 500] 99% donor [id number] on 08/02/2014 Results: Analysis of 500 interphase cells from the bone marrow hybridized to dual labeled X and Y specific alpha satellite probes* showed the following results: nuc aidan //(DXZ1,DYZ3)x1[499/ 500] 99% donor [id number] on 07/13/2014 Results: Analysis of 500 interphase cells from the peripheral oncology blood hybridized to dual labeled X and Y specific alpha satellite probes* showed the following results: nuc aidan(DXZ1x2)[2/500]// (DXZ1,DYZ3)x1[495/50 0] 99% donor [id number] on 06/27/2014 Results: Analysis of 500 interphase cells from the peripheral oncology blood hybridized to dual labeled X and Y specific alpha satellite probes* showed the following results: nuc aidan(DXZ1x2)[5/500]// (DXZ1,DYZ3)x1[493/50 0] 98% donor [id number] on 05/09/2014 Results: Fluorescence In-Situ Hybridization (FISH): Analysis of 500 interphase cells hybridized with specific labeled fluorescent probes*: break apart MLL probes* directed onto 11q23 showed the following results: nuc aidan (MLLx2)[467/500] Normal Interpretation: To rule out minimal residual disease of the previously identified clonal abnormality (see below;[id number]), FISH was performed using specific probes* as listed in the result section. FISH was negative indicating a possible disease remission. The previous study ([id number])showed a separation of the MLL signals in less than 1%??of cells. Clinicopathological correlation is suggested. Last verified: 05/09/2014 1715 by Vivian Ho, PhD [facility] on 04/20/2014 Results: Fluorescence In-Situ [...] of the signals in 85% of cells. Electronically signed by Vivian Ho, PhD [facility] on 04/25/2014 at 2005 on 04/06/2014 Results: Fluorescence In-Situ [...] onto 11q23 and 16q22, dual labeled probes* D5S23/N2O767 directed onto 5p15.2/5q31, dual labeled probes* CEP7/G5J539 directed onto 7 cent/7q31, dual labeled CEP8/J57Q446 directed onto 8cent/20q11.2, and dual labeled dual fusion ETO/AML1 directed onto 8q22/21q22 showed the following results: nuc aidan (EVI1x2)[196/200],(D 5S23,Z1O639,EGR1)x2[ 197/200],(D7Z1,D7S48 6)x2[195/200],(CEP8, Y66F763)x2[187/200], (ETO,AML1)x2[190/200 ],(MLLx2)(5'MLL sep 3'MLLx21)[85/100],(F OXO1x2)[192/200],(CB FBx2)[190/200] Abnormal showing MLL abnormality in 85% of cells. Analysis and??count of 15 cells (12 cells karyotyped, GTL-banding) [...] result electronically signed by Megan Larkin, PhD [facility] on 04/08/2014 at 1533 Preliminary result electronically signed by Megan Larkin, PhD AB on 04/07/2014 at 1306 6 11:28 AM RAIL CREW MEMBER [facility] MOLECULAR CYTOGENOMIC LAB Client Information [facility] ??- ??[id number] [facility] Lab Numbers: [id number] chrom, [id number] FISH 6 11:28 AM RAIL CREW MEMBER [facility] MOLECULAR CYTOGENOMIC LAB Other BONE MARROW SPECIMEN / Unknown 06/07/2015 06/07/2015 4:34 PM RAIL CREW MEMBER Mally Rogers MD LAB - PATHOLOGY/CYTO LOGY ORDERABLES Performing Organization Address City/State/[facility] Co de Phone Number [facility] MOLECULAR CYTOGENOMIC LAB [address] [place] [address] documented in this encounter Visit Diagnoses Not on filedocumented in this encounter Additional Health Concerns Infection Onset Date Last Indicated Resolved Time COVID-19 Under Investigation 01/27/2022 01/27/2022 01/27/2022 9:08 PM CDT COVID-19 Under Investigation 01/28/2022 01/28/2022 01/28/2022 3:39 PM CDT documented as of this encounter Care Teams Finished Yarn Examiner Relationship Specialty Start Date End Date Unknown, Provider PCP - General 08/18/17 10/19/17 Lelo Lopez MD [address] [place] [address] PCP - General 10/20/17 Fawad Ruffin MD Hematology and Oncology 09/23/17 Kary Logan, RN 09/23/17 09/24/17 Tyrell Diazerich Update Information Referring Physician Oncology 09/25/17 Mally Rogers MD [facility] [place] [address] Hematology and Oncology 09/25/17 Angelica Watson MD [facility] [place] [address] Hematology and Oncology 09/25/17 Liiver Ying, RN 09/25/17 11/22/20 Natalie Tian, RN Registered Nurse 09/25/17 Latha Ordoñez, JOSÉ MIGUEL-HAT BINDER [address] [place] [address] 2nd [place] [address] Oncology 09/25/17 Kary Logan RN 09/25/17 11/22/20 Lelo Becerra CONCRETE PUDDLER-CONE MARKER [address] [place] [address] [place] [address] Family Medicine 09/25/17 11/22/20 Theodore Oswald PA-C [facility] [place] [address] Physician Dye Can Operator 09/25/17 0 Meghan Alexander, LETTERPRESS SETTER Mexican Food Machine Tender 09/25/17 11/22/20 Leena Borden CSW Mexican Food Machine Tender 09/25/17 Flaquita Manning, PharmD 09/25/17 Meghan Maya, PharmD 09/25/17 06/30/19 Aleah Giordano APRN-CONE MARKER Family Medicine 09/25/17 11/22/20 Selma Garcia, VALERIA 10/20/17 11/22/20 Rody King, VALERIA 10/20/17 11/22/20 Aron Powell, VALERIA 10/20/17 06/30/19 Ligia Rivera MA 10/20/17 06/30/19 Ani Lira 10/20/17 11/22/20 Carolina Oglesby 10/20/17 Марина Lebron Vp Business Development Psychiatry 10/20/17 08/10/18 Tarsha Cha APRN-CONE MARKER [address] DIV OF HEMATOLOGY & MEDICAL ONCOLOGY [place], [place] [id number] Nurse Practitioner Family 10/04/20 Socorro Galdamez APRN-CONE MARKER [address] DIV OF HEMATOLOGY & MEDICAL ONCOLOGY [place], [place] [address] Nurse Practitioner 10/04/20 Jennifer Fung MD [address] OF HEMATOLOGY & [place] [address] Hematology and Oncology 11/23/21 documented as of this encounter
--- OUTSIDE RECORDS SUMMARY | 2024-05-27 23:20 | XMS_ITS | Encounter Summary ---
Author Organization [facility] Address [address] [facility] [place] [address] Care Team Providers Care Psychologist Developmental Name Role Phone Unknown, Provider Primary Care Provider UnavailFawad Atwood MD Unavailable [phone] Kary Logan RN Unavailable Unavailab Tyrell Reed Unavailable Unavailab Mally Edward MD Unavailable [phone] Angelica Watson MD Unavailable [phone] Livier Ying RN Unavailable Unavailable Natalie Tian RN Unavailable UnavailLatha Box RIVET STICKER-BUSINESS INITIATIVES MANAGER Unavailable [phone] Kary Logan RN Unavailable Unavailab Lelo rGeene RIVET STICKER-RESIDENT CARE COORDINATOR Unavailable [phone] Theodore Oswald PA-C Unavailable Unavail able Meghan Alexander PRIVACY MANAGER Unavailable Unavailable Leena Borden DESK OFFICER Unavailable Unavailable Flaquita Manning PharmD Unavailable UnavailMeghan Siddiqi PharmD Unavailable UnavailAleah Cormier RIVET STICKER-RESIDENT CARE COORDINATOR Unavailable [phone] Selma Garcia RN Unavailable Unavailable Rody King RN Unavailable UnavailAron Jolley RN Unavailable Unavailable Ligia Rivera MA Unavailable Unavailable Ani Lira Unavailable Unavailable Carolina Oglesby Unavailable Yana Lelo Lira MD Primary Care Provider [phone] Марина Lebron Unavailable Unavailable Tarsha Cha RIVET STICKER-RESIDENT CARE COORDINATOR Unavailable [phone] Socorro Galdamez RIVET STICKER-RESIDENT CARE COORDINATOR Unavailable [phone] Jennifer Fung MD Unavailable Encounter Details Date Type Department Care Team (Late st Contact Info) Description 04/20/2014 Lab Requisition [facility] - Lab Cytogenetics [address] [place] [address] Thanh Raymond MD [address] [place], [place] [id number] AML (acute myeloblastic leukemia) (HCC) Social History [...] Associated Diagnosis Comments CYTOGENETICS CANCER PANEL Routine 04/20/2014 3:11 PM [facility] AML (acute myeloblastic leukemia) [ICD-9-CM] documented in this encounter Results * CYTOGENETICS CANCER PANEL (04/20/2014 3:11 PM [facility]) Indication for Study AML/MRD 4 8:06 PM [facility] MOLECULAR CYTOGENOMIC LAB Results Cytogenetics Fluorescence In-Situ Hybridization (FISH): Analysis of 500 interphase cells hybridized with specific labeled fluorescent probes*: break apart MLL probes* directed onto 11q23 showed the following results: nuc aidan (MLLx2)(5'MLL sep 3'MLLx1)[4/500] Abnormal showing MLL abnormality in less than 1% of cells. 4 8:06 PM [facility] MOLECULAR CYTOGENOMIC LAB Interpretation To rule out a minimal residual disease of the previously identified clonal abnormality (see below;[id number]), FISH was performed using specific probes* as [...] other clinicopathological findings. The previous study ( [id number]) showed a separation of the signals in 85% of cells. 4 8:06 PM [facility] MOLECULAR CYTOGENOMIC LAB Disclaimer *This test was developed, and its performance characteristics determined by [facility] Molecular Cytogenetics Laboratory as required [...] performed by correlating pathology with cytogenetic findings. 4 8:06 PM [facility] MOLECULAR CYTOGENOMIC LAB Historical Cytogenomic Report [id number] on 04/06/2014 Results: Fluorescence In-Situ Hybridization (FISH): ??Analysis of 200 interphase cells hybridized with dual labeled dual fusion probes BCR/ABL1 probes* directed onto 22q11.2/9q34 and PML/CAM directed onto 15q24/17q21 specific fluorescent labeled probes* showed the following results: ? nuc aidan(ABL1,BCR)x2[185/ 200],(PML,CAM)x2[18 7/200] Normal Fluorescence In-Situ Hybridization (FISH): Analysis of 100 to 200 interphase cells hybridized with specific labeled fluorescent probes*: break apart MLL and CBFB probes* directed onto 11q23 and 16q22, dual labeled probes* D5S23/M9L185 directed onto 5p15.2/5q31, dual labeled probes* CEP7/X2O276 directed onto 7 cent/7q31, dual labeled CEP8/B74S626 directed onto 8cent/20q11.2, and dual labeled dual fusion ETO/AML1 directed onto 8q22/21q22 showed the following results: nuc aidan (EVI1x2)[196/200],(D 5S23,T8Q349,EGR1)x2[ 197/200],(D7Z1,D7S48 6)x2[195/200],(CEP8, J19W271)x2[187/200], (ETO,AML1)x2[190/200 ],(MLLx2)(5'MLL sep 3'MLLx21)[85/100],(F OXO1x2)[192/200],(CB FBx2)[190/200] Abnormal [...] result electronically signed by Megan Larkin, PhD MG on 04/08/2014 at 1533 Preliminary result electronically signed by Megan Larkin PhD AB on 04/07/2014 at 1306 4 8:06 PM [facility] MOLECULAR CYTOGENOMIC LAB Client Information [facility] - [id number] 4 8:06 PM [facility] MOLECULAR CYTOGENOMIC LAB Other BONE MARROW SPECIMEN / Unknown 04/20/2014 3:11 PM MACHINE HEEL BUILDER 04/20/2014 3:11 PM MACHINE HEEL BUILDER Thanh Raymond MD LAB - PATHOLOGY/CYTO LOGY ORDERABLES [facility] MOLECULAR CYTOGENOMIC [place] [address] documented in this encounter Visit Diagnoses Diagnosis AML (acute myeloblastic leukemia) (HCC) Acute myeloid leukemia, without mention of having achieved remission documented in this encounter Additional Health Concerns Infection Onset Date Last Indicated Resolved Time COVID-19 Under Investigation 01/27/2022 01/27/2022 01/27/2022 9:08 PM CDT COVID-19 Under Investigation 01/28/2022 01/28/2022 01/28/2022 3:39 PM CDT documented as of this encounter Care Teams Psychologist Developmental Relationship Specialty Start Date End Date Unknown, Provider PCP - General 08/18/17 10/19/17 Lelo Lopez MD [address] [place] [address] PCP - General 10/20/17 Fawad Ruffin MD Hematology and Oncology 09/23/17 Kary Logan RN 09/23/17 09/24/17 Tyrell Diaz Update Information Referring Physician Oncology 09/25/17 Mally Rogers MD [address] [place], [place] [id number] Hematology and Oncology 09/25/17 Angelica Watson MD [address] [place], [place] [id number] Hematology and Oncology 09/25/17 Livier Ying, RN 09/25/17 11/22/20 Natalie Tian, RN Registered Nurse 09/25/17 Latha Ordoñez APRN-BUSINESS INITIATIVES MANAGER [address] [facility] 2nd [place] [address] Oncology 09/25/17 Kary Logan, RN 09/25/17 11/22/20 Lelo Becerra, RIVET STICKER-RESIDENT CARE COORDINATOR [address] [facility] [place] [address] Family Medicine 09/25/17 11/22/20 Theodore Oswald PA-C [address] [facility] [address] [address] Physician Disease Case Manager Rn 09/25/17 Meghan Jurado, PRIVACY MANAGER Open Hearth Helper 09/25/17 11/22/20 Leena Borden, DESK OFFICER Open Hearth Helper 09/25/17 Flaquita Manning, PharmD 09/25/17 Meghan Maya, PharmD 09/25/17 06/30/19 Aleah Giordano, RIVET STICKER-RESIDENT CARE COORDINATOR Family Medicine 09/25/17 11/22/20 Selma Garcia, RN 10/20/17 11/22/20 Rody King, VALERIA 10/20/17 11/22/20 Aron Powell, VALERIA 10/20/17 06/30/19 Ligia Rivera MA 10/20/17 06/30/19 Ani Lira 10/20/17 11/22/20 Carolina Oglesby 10/20/17 Марина Lebron Recreation Officer Psychiatry 10/20/17 08/10/18 Tarsha Cha RIVET STICKER-RESIDENT CARE COORDINATOR [address] DIV OF HEMATOLOGY & [place] [address] Nurse Practitioner Family 10/04/20 Socorro Galdamez, RIVET STICKER-RESIDENT CARE COORDINATOR [address] DIV OF HEMATOLOGY & [place] [address] Nurse Practitioner 10/04/20 Jennifer Fung MD [address] [facility] OF HEMATOLOGY & [place] [address] Hematology and Oncology 11/23/21 documented as of this encounter
--- OUTSIDE RECORDS SUMMARY | 2024-05-27 23:20 | XMS_ITS | Encounter Summary ---
Author Organization [facility] Address [address] [facility] [place] [address] Care Team Providers Care Foundry Tender Name Role Phone Unknown, Provider Primary Care Provider UnavailFawad Atwood MD Unavailable [phone] Kary Logan RN Unavailable Unavailab Tyrell Reed Unavailable Unavailab Mally Edward MD Unavailable [phone] Angelica Watson MD Unavailable [phone] Livier Ying RN Unavailable Unavailable Natalie Tian RN Unavailable UnavailLatha Box ART CRITIC-NOVELTY PRINTING MACHINE OPERATOR Unavailable [phone] Kary Logan RN Unavailable Unavailab Lelo Greene ART CRITIC-VACUUM DRIER OPERATOR Unavailable [phone] Theodore Oswald PA-C Unavailable Unavail able Meghan Alexander PACKAGE YARNS DRYING MACHINE OPERATOR Unavailable Unavailable Leena Borden MANAGER TRUST Unavailable Unavailable Flaquita Manning PharmD Unavailable UnavailMeghan Siddiqi PharmD Unavailable UnavailAleah Cormier ART CRITIC-VACUUM DRIER OPERATOR Unavailable [phone] Selma Garcia RN Unavailable Unavailable Rody King RN Unavailable UnavailAron Jolley RN Unavailable Unavailable Ligia Rivera MA Unavailable Unavailable Ani Lira Unavailable Unavailable Carolina Oglesby Unavailable Yana Lelo Lira MD Primary Care Provider [phone] BernardinoМарина Unavailable Unavailable Tarsha Cha ART CRITIC-VACUUM DRIER OPERATOR Unavailable [phone] GaldamezSocorro ART CRITIC-VACUUM DRIER OPERATOR Unavailable [phone] Jennifer Fung MD Unavailable Encounter Details Date Type Department Care Team (Late st Contact Info) Description 12/14/2014 Lab Requisition [facility] - Lab Cytogenetics [address] [place] [address] Fawad Ruffin MD [address] [place] [address] Rd [address] [place] [address] AML (acute myeloblastic leukemia) (HCC) Social History [...] Associated Diagnosis Comments CYTOGENETICS CANCER PANEL Routine 12/14/2014 1:45 PM CDT AML (acute myeloblastic leukemia) [ICD-9-CM] documented in this encounter Results * CYTOGENETICS CANCER PANEL (12/14/2014 1:45 PM CDT) Indication for Study 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) 5 10:56 AM T [facility] MOLECULAR CYTOGENOMIC LAB Results Cytogenetics Fluorescence In-Situ Hybridization (FISH): Analysis of 500 interphase cells from the bone marrow hybridized to dual labeled X and Y specific alpha satellite probes* showed the following results: nuc aidan(DXZ1x2)[1/500]// (DXZ1,DYZ3)x1[497/50 0] 99% donor 5 10:56 AM T [facility] MOLECULAR CYTOGENOMIC LAB Interpretation Fluorescence in-situ hybridization study using X(DXZ1) and Y(DYZ1/DYZ3) specific alpha satellite probes showed greater than 99% XY (donor cells) and less than 1% XX (patient cells). The remaining percentage of cells had one signal of X in less than 1% of cells of unknown origin. No chromosome analysis was performed because greater than 99% of interphase cells were found to be of donor origin. This percentage has remained the same throughout several FISH analyses (see below). 5 10:56 AM CDT [facility] MOLECULAR CYTOGENOMIC LAB Disclaimer *This test was developed, and its performance characteristics determined by [facility] Molecular Cytogenetics Laboratory as required by [...] by correlating pathology with cytogenetic findings. 5 10:56 AM CDT [facility] MOLECULAR CYTOGENOMIC LAB Historical Cytogenomic Report Historical Cytogenomic Report [id number] on 10/13/2014: Results Analysis of 500 interphase cells from the bone marrow hybridized to dual labeled X and Y specific alpha satellite probes* showed the following results: nuc aidan(DXZ1x2)[3500]// (DXZ1,DYZ3)x1[497/50 0] 99% donor [id number] on 09/19/2014: Results Analysis of 500 interphase cells from the bone marrow hybridized to dual labeled X and Y specific alpha satellite probes* showed the following results: nuc aidan //(DXZ1,DYZ3)x1[498/ 500] 99% donor --------- [id number] on 09/15/2014 Results: Analysis of 500 interphase cells from the bone marrow hybridized to dual labeled X and Y specific alpha satellite probes* showed the following results: nuc aidan //(DXZ1,DYZ3)x1[497/ 500] 99% donor [id number] on 08/02/2014 Results: Analysis of 500 interphase cells from the bone marrow hybridized to dual labeled X and Y specific alpha satellite probes* showed the following results: nuc aidan //(DXZ1,DYZ3)x1[499/ 500] 99% donor [id number] on 07/13/2014 Results: Analysis of 500 interphase cells from the peripheral oncology blood hybridized to dual labeled X and Y specific alpha satellite probes* showed the following results: nuc aidan(DXZ1x2)[2500]// (DXZ1,DYZ3)x1[495/50 0] 99% donor [id number] on 06/27/2014 Results: Analysis of 500 interphase cells from the peripheral oncology blood hybridized to dual labeled X and Y specific alpha satellite probes* showed the following results: nuc aidan(DXZ1x2)[5/500]// (DXZ1,DYZ3)x1[493/50 0] 98% donor [id number] on 05/09/2014 Results: Fluorescence In-Situ Hybridization (FISH): Analysis of 500 interphase cells hybridized with specific labeled fluorescent probes*: break apart MLL probes* directed onto 11q23 showed the following results: nuc aidan (MLLx2)[467/500] Normal Interpretation: To rule out minimal residual disease of the previously identified clonal abnormality (see below;[id number]), FISH was performed using specific probes* as listed in the result section. FISH was negative indicating a possible disease remission. The previous study ([id number])showed a separation of the MLL signals in less than 1% of cells. Clinicopathological correlation is suggested. Last verified: 05/09/2014 1715 by Vivian Ho, PhD [facility] on 04/20/2014 Results: Fluorescence In-Situ [...] signals in 85% of cells. at 2006 14 on 04/06/2014 Results: Fluorescence In-Situ Hybridization (FISH): [...] onto 11q23 and 16q22, dual labeled probes* D5S23/M7Q801 directed onto 5p15.2/5q31, dual labeled probes* CEP7/P4L515 directed onto 7 cent/7q31, dual labeled CEP8/C27U383 directed onto 8cent/20q11.2, and dual labeled dual fusion ETO/AML1 directed onto 8q22/21q22 showed the following results: nuc aidan (EVI1x2)[196/200],(D 5S23,W6S450,EGR1)x2[ 197/200],(D7Z1,D7S48 6)x2[195/200],(CEP8, G94P887)x2[187/200], (ETO,AML1)x2[190/200 ],(MLLx2)(5'MLL sep 3'MLLx21)[85/100],(F OXO1x2)[192/200],(CB FBx2)[190/200] Abnormal [...] Larkin, PhD AB on 04/07/2014 at 1306 5 10:56 AM CDT [facility] MOLECULAR CYTOGENOMIC LAB Client Information [facility] ??- [phone] [facility] Lab Number: ??[id number] Chroms; [id number] FISH 5 10:56 AM CDT [facility] MOLECULAR CYTOGENOMIC LAB Other BONE MARROW SPECIMEN / Unknown 12/14/2014 1:45 PM CDT 12/14/2014 3:02 PM CDT Fawad Ruffin MD LAB - PATHOLOGY/CY TOLOGY ORDERABLES [facility] MOLE[facility] CYTOGENOMIC LAB [address] [place] [address] documented in this encounter Visit Diagnoses Diagnosis AML (acute myeloblastic leukemia) (HCC) Acute myeloid leukemia, without mention of having achieved remission documented in this encounter Additional Health Concerns Infection Onset Date Last Indicated Resolved Time COVID-19 Under Investigation 01/27/2022 01/27/2022 01/27/2022 9:08 PM CDT COVID-19 Under Investigation 01/28/2022 01/28/2022 01/28/2022 3:39 PM CDT documented as of this encounter Care Teams Foundry Tender Relationship Specialty Start Date End Date Unknown, Provider PCP - General 08/18/17 10/19/17 Lelo oLpez MD [address] [place] [address] PCP - General 10/20/17 Fawad Ruffin MD Hematology and Oncology 09/23/17 Kary Logan, RN 09/23/17 09/24/17 Tyrell Diaz Update Information Referring Physician Oncology 09/25/17 Mally Rogers MD [facility] [place] [address] Hematology and Oncology 09/25/17 Angelica Watson MD [facility] [place] [address] Hematology and Oncology 09/25/17 Livier Ying, RN 09/25/17 11/22/20 Natalie Tian, RN Registered Nurse 09/25/17 Latha Ordoñez APRN-NOVELTY PRINTING MACHINE OPERATOR [address] [place] [address] Oncology 09/25/17 Kary Logan RN 09/25/17 11/22/20 Lelo Becerra APRN-VACUUM DRIER OPERATOR [address] [facility] 2nd [place] [address] Family Medicine 09/25/17 11/22/20 Theodore Oswald PA-C [address] [facility] [address]nd [place] [address] Physician Casting Room Helper 09/25/17 0 Meghan Alexander, PACKAGE YARNS DRYING MACHINE OPERATOR Termite Treater 09/25/17 11/22/20 Leena Borden, MANAGER TRUST Termite Treater 09/25/17 Flaquita Manning, PharmD 09/25/17 Meghan Maya, PharmD 09/25/17 06/30/19 Aleah Giordano, ART CRITIC-VACUUM DRIER OPERATOR Family Medicine 09/25/17 11/22/20 Selma Garcia, VALERIA 10/20/17 11/22/20 Rody King, VALERIA 10/20/17 11/22/20 Aron Powell, VALERIA 10/20/17 06/30/19 Ligia Rivera MA 10/20/17 06/30/19 Ani Lira 10/20/17 11/22/20 Carolina Oglesby 10/20/17 Марина Lebron Demographer Psychiatry 10/20/17 08/10/18 Tarsha Cha ART CRITIC-VACUUM DRIER OPERATOR [address] OF HEMATOLOGY & [place] [address] Nurse Practitioner Family 10/04/20 Socorro Galdamez ART CRITIC-VACUUM DRIER OPERATOR [address] DIV OF HEMATOLOGY & [place] [address] Nurse Practitioner 10/04/20 Jennifer Fung MD [address] DIV OF HEMATOLOGY & [place] [address] Hematology and Oncology 11/23/21 documented as of this encounter
--- OUTSIDE RECORDS SUMMARY | 2024-05-27 23:20 | XMS_ITS | Encounter Summary ---
Author Organization [facility] Address [address] [facility] [place] [address] Care Team Providers Care Overhead Worker Name Role Phone Unknown, Provider Primary Care Provider UnavailFawad Atwood MD Unavailable [phone] Kary Logan RN Unavailable Unavailab Tyrell Reed Unavailable Unavailab Mally Edward MD Unavailable [phone] Angelica Watson MD Unavailable [phone] Livier Ying RN Unavailable Unavailable Natalie Tian RN Unavailable UnavailLatha Box IMAGE PROCESSING ENGINEER-DIRECTOR FRANCHISE SALES Unavailable [phone] Kary Logan RN Unavailable Unavailab Lelo Greene IMAGE PROCESSING ENGINEER-PHARMACIST Unavailable [phone] Theodore Oswald PA-C Unavailable Unavail able Meghan Alexander PRECISION LAYOUT WORKER Unavailable Unavailable Leena Borden SERVICE ARCHITECT Unavailable Unavailable Flaquita Manning PharmD Unavailable UnavailMeghan Siddiqi PharmD Unavailable UnavailAleah Cormier IMAGE PROCESSING ENGINEER-PHARMACIST Unavailable [phone] Selma Garcia RN Unavailable Unavailable Rody King RN Unavailable UnavailAron Jolley RN Unavailable Unavailable Ligia Rivera MA Unavailable Unavailable Ani Lira Unavailable Unavailable Carolina Oglesby Unavailable Yana Lelo Lira MD Primary Care Provider [phone] Марина Lebron Unavailable Unavailable Tarsha Cha IMAGE PROCESSING ENGINEER-PHARMACIST Unavailable [phone] Socorro Galdamez IMAGE PROCESSING ENGINEER-PHARMACIST Unavailable [phone] Jennifer Fung MD Unavailable Encounter Details Date Type Department Care Team (Late st Contact Info) Description 05/03/2014 Lab Requisition [facility] - Lab Cytogenetics [address] [place] [address] Thanh Raymond MD [address] [place], [place] [id number] AML (acute myeloblastic leukemia) (HCC) Social History [...] Associated Diagnosis Comments CYTOGENETICS CANCER PANEL Routine 05/03/2014 2:28 PM WOODEN FENCE ERECTOR AML (acute myeloblastic leukemia) [ICD-9-CM] documented in this encounter Results * CYTOGENETICS CANCER PANEL (05/03/2014 2:28 PM WOODEN FENCE ERECTOR) Indication for Study AML/MRD 5 5:15 PM [facility] MOLECULAR CYTOGENOMIC LAB Results Cytogenetics Fluorescence In-Situ Hybridization (FISH): Analysis of 500 interphase cells hybridized with specific labeled fluorescent probes*: break apart MLL probes* directed onto 11q23 showed the following results: ? nuc aidan (MLLx2)[467/500] Normal 5 5:15 PM [facility]LE[facility] CYTOGENOMIC LAB Interpretation To rule out minimal residual disease of the previously identified clonal abnormality (see below;[id number]), FISH was performed using specific probes* as listed in the result section. FISH was negative indicating a possible disease remission. The previous study ([id number])showed a separation of the MLL signals in less than 1% of cells. Clinicopathological correlation is suggested. 5 5:15 PM [facility] MOLECULAR CYTOGENOMIC LAB Disclaimer *This test was developed, and its performance characteristics determined by [facility] Molecular Cytogenetics Laboratory as required [...] by correlating pathology with cytogenetic findings. 5 5:15 PM [facility] MOLEC[facility] CYTOGENOMIC LAB Historical Cytogenomic Report [id number] on 04/20/2014 Results: Fluorescence In-Situ Hybridization (FISH): Analysis of 500 interphase cells hybridized with specific labeled fluorescent probes*: break apart MLL probes* directed onto 11q23 showed the following results: ?? nuc aidan (MLLx2)(5'MLL sep 3'MLLx1)[4/500] Abnormal showing [...] onto 11q23 and 16q22, dual labeled probes* D5S23/C3S032 directed onto 5p15.2/5q31, dual labeled probes* CEP7/S8E446 directed onto 7 cent/7q31, dual labeled CEP8/I92J873 directed onto 8cent/20q11.2, and dual labeled dual fusion ETO/AML1 directed onto 8q22/21q22 showed the following results: ?? nuc aidan (EVI1x2)[196/200],(D 5S23,T3N036,EGR1)x2[ 197/200],(D7Z1,D7S48 6)x2[195/200],(CEP8, Y41R580)x2[187/200], (ETO,AML1)x2[190/200 ],(MLLx2)(5'MLL sep 3'MLLx21)[85/100],(F OXO1x2)[192/200],(CB FBx2)[190/200] Abnormal showing MLL abnormality in 85% of cells. ?? Analysis and count of 15 cells (12 cells karyotyped, GTL-banding) from 24-hour unstimulated and 72-hour Interleukin stimulated bone marrow cultures showed the following chromosome pattern: ?? 46,XX,t(11;19)(q23;p 13.1)[11]/46,XX[4] ?? Interpretation: FISH was negative for BCR/ABL1 and PML/CAM probes. Chromosome analysis and FISH of the remaining probes of the AML panel are in progress. ?? FISH of AML was positive for MLL showing a seperation of the signals in 85% of cells indicating a translocation involving 11q23. FISH of all other probes was negative. Rearrangement involving MLL is found in ANLL and ALL. MLL translocation in ANLL is often associated with AML-M5 or M4. Overall, the prognostic association is unfavorable. Clinicopathological correlation is suggested. ?? Chromosome analysis is in progress to determine the partner of 11q23 rearrangement. ?? =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 [...] Larkin, PhD ABMG on 04/08/2014 at 1533 ??Preliminary result electronically signed by Megan Larkin, PhD AB on 04/07/2014 at 1306 5 5:15 PM WOODEN FENCE ERECTOR [facility] MOLECULAR CYTOGENOMIC LAB Client Information [facility] - [phone] 5 5:15 PM WOODEN FENCE ERECTOR [facility] MOLECULAR CYTOGENOMIC LAB Other BONE MARROW SPECIMEN / Unknown 05/03/2014 2:28 PM WOODEN FENCE ERECTOR 05/03/2014 2:29 PM WOODEN FENCE ERECTOR Thanh Raymond MD LAB - PATHOLOGY/CYTO LOGY ORDERABLES Performing Organization Address City/State/[facility] Co de Phone Number [facility] MOLECULAR CYTOGENOMIC LAB [address] [place] [address] documented in this encounter Visit Diagnoses Diagnosis AML (acute myeloblastic leukemia) (HCC) Acute myeloid leukemia, without mention of having achieved remission documented in this encounter Additional Health Concerns Infection Onset Date Last Indicated Resolved Time COVID-19 Under Investigation 01/27/2022 01/27/2022 01/27/2022 9:08 PM CDT COVID-19 Under Investigation 01/28/2022 01/28/2022 01/28/2022 3:39 PM CDT documented as of this encounter Care Teams Overhead Worker Relationship Specialty Start Date End Date Unknown, Provider PCP - General 08/18/17 10/19/17 Lelo Lopez MD [address] [place] [address] PCP - General 10/20/17 Fawad Ruffin MD Hematology and Oncology 09/23/17 Kary Logan, RN 09/23/17 09/24/17 Tyrell Diaz Irene Update Information Referring Physician Oncology 09/25/17 Mally Rogers MD [facility] [place] [address] Hematology and Oncology 09/25/17 Angelica Watson MD [address] [place] [address] Hematology and Oncology 09/25/17 Livier Ying, RN 09/25/17 11/22/20 Natalie Tian, RN Registered Nurse 09/25/17 Latha Ordoñez, IMAGE PROCESSING ENGINEER-DIRECTOR [employer] [address] [place] [address] [address]nd [place] [address] Oncology 09/25/17 Kary Logan, RN 09/25/17 11/22/20 Lelo Becerra, IMAGE PROCESSING ENGINEER-PHARMACIST [address] [place] [address] [address]nd [place] [address] Family Medicine 09/25/17 11/22/20 Theodore Oswald PA-C [address] [place] [address] [address]nd [place] [address] Physician Check And Transfer Beader 09/25/17 0 Meghan Alexander, PRECISION LAYOUT WORKER Projector Operator 09/25/17 11/22/20 Leena Borden CSW Projector Operator 09/25/17 Flaquita Manning, PharmD 09/25/17 Meghan Maya, PharmD 09/25/17 06/30/19 Aleah Giordano IMAGE PROCESSING ENGINEER-PHARMACIST Family Medicine 09/25/17 11/22/20 Selma Garcia, VALERIA 10/20/17 11/22/20 Rody King, VALERIA 10/20/17 11/22/20 Aron Powell, VALERIA 10/20/17 06/30/19 Ligia Rivera MA 10/20/17 06/30/19 Ani Lira 10/20/17 11/22/20 Carolina Oglesby 10/20/17 Марина Lebron Sport Intern Psychiatry 10/20/17 08/10/18 Tarsha Cha APRN-PHARMACIST [address] DIV OF HEMATOLOGY & [place] [address] Nurse Practitioner Family 10/04/20 Socorro Galdamez APRN-PHARMACIST [address] DIV OF HEMATOLOGY & [place] [address] Nurse Practitioner 10/04/20 Jennifer Fung MD [address] DIV OF HEMATOLOGY & [place] [address] Hematology and Oncology 11/23/21 documented as of this encounter
--- OUTSIDE RECORDS SUMMARY | 2024-05-27 23:20 | XMS_ITS | Encounter Summary ---
Author Organization [facility] Address [address] [facility] [place] [address] Care Team Providers Care Gis Programmer Name Role Phone Unknown, Provider Primary Care Provider UnavailFawad Atwood MD Unavailable [phone] Kary Logan RN Unavailable Unavailab Tyrell Reed Unavailable Unavailab Mally Edward MD Unavailable [phone] Angelica Watson MD Unavailable [phone] Livier Ying RN Unavailable Unavailable Natalie Tian RN Unavailable UnavailLatha Box CLINICAL MOLECULAR GENETICIST-IT APPLICATIONS DEVELOPER Unavailable [phone] Kary Logan RN Unavailable Unavailab Lelo Greene CLINICAL MOLECULAR GENETICIST-TELESALES REPRESENTATIVE Unavailable [phone] Theodore Oswald PA-C Unavailable Unavail able Meghan Alexander ARCHITECTURAL DRAFTER Unavailable Unavailable Leena Borden DRILLER HELPER Unavailable Unavailable Flaquita Manning PharmD Unavailable UnavailMeghan Siddiqi PharmD Unavailable UnavailAleah Cormier CLINICAL MOLECULAR GENETICIST-TELESALES REPRESENTATIVE Unavailable [phone] Selma Garcia RN Unavailable Unavailable Rody King RN Unavailable UnavailAron Jolley RN Unavailable Unavailable Ligia Rivera MA Unavailable Unavailable Ani Lira Unavailable Unavailable Carolina Oglesby Unavailable Yana Lelo Lira MD Primary Care Provider [phone] Марина Lebron Unavailable Unavailable Tarsha Cha CLINICAL MOLECULAR GENETICIST-TELESALES REPRESENTATIVE Unavailable [phone] Socorro Galdamez CLINICAL MOLECULAR GENETICIST-TELESALES REPRESENTATIVE Unavailable [phone] Jennifer Fung MD Unavailable Encounter Details Date Type Department Care Team (Late st Contact Info) Description 07/11/2014 Lab Requisition [facility] - Lab Cytogenetics [address] [place] [address] Juanito Pimentel MD [address] [place] [address] AML (acute myeloblastic leukemia) (HCC) [...] Associated Diagnosis Comments CYTOGENETICS CANCER PANEL Routine 07/11/2014 3:37 PM CDT AML (acute myeloblastic leukemia) [ICD-9-CM] documented in this encounter Results * CYTOGENETICS CANCER PANEL (07/11/2014 3:37 PM CDT) Indication for Study 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 nuc aidan(DXZ1x2)[2/500]// (DXZ1,DYZ3)x1[495/50 0] 99% donor 5 1:30 PM CDT [facility] CYTOGENOMIC [facility] Interpretation Fluorescence in-situ [...] found to be of donor origin. 5 1:30 PM [facility] CYTO[facility]OMIC [facility] Disclaimer *This test was developed, and its performance characteristics determined by [facility] Molecular Cytogenetics Laboratory as required [...] by correlating pathology with cytogenetic findings. 5 1:30 PM [facility] CYTOGENOMIC [facility] Historical Cytogenomic Report [id number] on 06/24/2014 Results: Analysis of 500 interphase cells from the peripheral oncology blood hybridized to dual labeled X and Y specific alpha satellite probes* showed the following results: ? nuc aidan(DXZ1x2)[5/500]// (DXZ1,DYZ3)x1[493/50 0] 98% donor Interpretation: [...] to be of donor origin. at [phone] on 05/03/2014 Results: Fluorescence In-Situ Hybridization (FISH): Analysis of 500 interphase cells hybridized with specific labeled fluorescent probes*: break apart MLL probes* directed onto 11q23 showed the following results: ? nuc aidan (MLLx2)[467/500] Normal ?? Interpretation: To rule out minimal residual disease of the previously identified clonal abnormality (see below;[id number]), FISH was performed using specific probes* as listed in the result section. FISH was negative indicating a possible disease remission. The previous study ([id number])showed a separation of the MLL signals in less than 1% of cells. ??Clinicopathologica l correlation is suggested. at [phone] on 04/20/2014 Results: Fluorescence In-Situ Hybridization (FISH): Analysis of 500 interphase cells hybridized with specific labeled fluorescent probes*: break apart MLL probes* directed onto 11q23 showed the following results: ? nuc aidan (MLLx2)(5'MLL sep 3'MLLx1)[4/500] Abnormal showing MLL abnormality in less than 1% of cells. ? Interpretation: To rule out a minimal residual disease of the previously identified clonal abnormality (see below; [id number]), FISH was performed using specific probes* as [...] other clinicopathological findings. The previous study ( [id number]) showed a separation of the signals in 85% of cells. ?? at 2006 ?? [phone] on 04/06/2014 Results: Fluorescence In-Situ Hybridization (FISH): [...] onto 11q23 and 16q22, dual labeled probes* D5S23/U5Q007 directed onto 5p15.2/5q31, dual labeled probes* CEP7/X0K497 directed onto 7 cent/7q31, dual labeled CEP8/Z91A000 directed onto 8cent/20q11.2, and dual labeled dual fusion ETO/AML1 directed onto 8q22/21q22 showed the following results: ? nuc aidan (EVI1x2)[196/200],(D 5S23,L2L622,EGR1)x2[ 197/200],(D7Z1,D7S48 6)x2[195/200],(CEP8, H52G289)x2[187/200], (ETO,AML1)x2[190/200 ],(MLLx2)(5'MLL sep 3'MLLx21)[85/100],(F OXO1x2)[192/200],(CB FBx2)[190/200] Abnormal showing MLL abnormality in 85% of cells. ? Analysis and count of 15 cells (12 cells karyotyped, GTL-banding) from 24-hour unstimulated and 72-hour Interleukin stimulated bone marrow cultures showed the following chromosome pattern: ? 46,XX,t(11;19)(q23;p 13.1)[11]/46,XX[4] ?? Interpretation: FISH was negative for BCR/ABL1 and PML/CAM probes. Chromosome analysis and FISH of the remaining probes of the AML panel are in progress. ? FISH of AML was positive for MLL showing a seperation of the signals in 85% of cells indicating a translocation involving 11q23. FISH of all other probes was negative. Rearrangement involving MLL is found in ANLL and ALL. MLL translocation in ANLL is often associated with AML-M5 or M4. Overall, the prognostic association is unfavorable. Clinicopathological correlation is suggested. ? Chromosome analysis is in progress to determine the partner of 11q23 rearrangement. ? =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 a translocation between 11q23 and 19p13.1 in 11 of 15 cells examined at 400 average band resolution. The 4 remaining cells appeared normal. This type of translocation is associated with AML-M4 or M5. Similar translocation but with a breakpoint at 19p13.3 is associated with ALL. Clinicopathological correlation is suggested. ? at 1401 Preliminary result electronically signed by Megan Larkin, PhD [facility] on 04/08/2014 at 1533 ?Preliminary result electronically signed by Megan Larkin, PhD [facility]BM[facility] on 04/07/2014 at 1306 5 1:30 PM CDT [facility] CYTOGENOMIC LAB Client Information [facility] ??- ??[id number] [facility] Lab Number: ??[id number] 5 1:30 PM CDT [facility] CYTOGENOMIC [facility] Other BLOOD SPECIMEN / Unknown 07/11/2014 3:37 PM CDT 07/11/2014 3:37 PM CDT Juanito Pimentel MD LAB - PATHOLOGY/CYTO LOGY ORDERABLES Performing Organization Address City/State/[facility] Co de Phone Number [facility] CYTOGENOM[facility] [address] [place] [address] documented in this encounter Visit Diagnoses Diagnosis AML (acute myeloblastic leukemia) (HCC) Acute myeloid leukemia, without mention of having achieved remission documented in this encounter Additional Health Concerns Infection Onset Date Last Indicated Resolved Time COVID-19 Under Investigation 01/27/2022 01/27/2022 01/27/2022 9:08 PM CDT COVID-19 Under Investigation 01/28/2022 01/28/2022 01/28/2022 3:39 PM CDT documented as of this encounter Care Teams Gis Programmer Relationship Specialty Start Date End Date Unknown, Provider PCP - General 08/18/17 10/19/17 Lelo Lopez MD [address] [place] [address] PCP - General 10/20/17 Fawad Ruffin MD Hematology and Oncology 09/23/17 Kary Logan RN 09/23/17 09/24/17 Tyrell Diaz Update Information Referring Physician Oncology 09/25/17 Mally Rogers MD [address] [place] [address] Hematology and Oncology 09/25/17 Angelica Watson MD [address] [place] [address] Hematology and Oncology 09/25/17 Livier Ying, RN 09/25/17 11/22/20 Natalie Tian, RN Registered Nurse 09/25/17 Latha Ordoñez, CLINICAL MOLECULAR GENETICIST-IT APPLICATIONS DEVELOPER [facility] [facility] 2nd [place] [address] Oncology 09/25/17 Kary Logan RN 09/25/17 11/22/20 Lelo Becerra, CLINICAL MOLECULAR GENETICIST-TELESALES REPRESENTATIVE [address] [place] [address] [place] [address] Family Medicine 09/25/17 11/22/20 Theodore Oswald PA-C [address] [place] [address] [place] [address] Physician Phytopathology Teacher 09/25/17 Meghan Jurado, ARCHITECTURAL DRAFTER Med Spa Manager 09/25/17 11/22/20 Leena Borden, DRILLER HELPER Med Spa Manager 09/25/17 Flaquita Manning, PharmD 09/25/17 Meghan Maya, PharmD 09/25/17 06/30/19 Aleah Giordano, CLINICAL MOLECULAR GENETICIST-TELESALES REPRESENTATIVE Family Medicine 09/25/17 11/22/20 Selma Garcia, VALERIA 10/20/17 11/22/20 Rody King, VALERIA 10/20/17 11/22/20 Aron Powell, VALERIA 10/20/17 06/30/19 Ligia Rivera MA 10/20/17 06/30/19 Ani Lira 10/20/17 11/22/20 Carolina Oglesby 10/20/17 Марина Lebron Project Controls Specialist Psychiatry 10/20/17 08/10/18 Tarsha Cha APRN-CNP [address] DIV OF HEMATOLOGY & [place] [address] Nurse Practitioner Family 10/04/20 Socorro Galdamez APRN-CNP [address] DIV OF HEMATOLOGY & [place] [address] Nurse Practitioner 10/04/20 Jennifer Fung MD [address] DIV OF HEMATOLOGY & [place] [address] Hematology and Oncology 11/23/21 documented as of this encounter
--- OUTSIDE RECORDS SUMMARY | 2024-05-27 23:20 | XMS_ITS | Encounter Summary ---
Author Organization [facility] Address [address] [place] [address] Care Team Providers Care Fire Extinguisher Charger Name Role Phone Unknown, Provider Primary Care Provider UnavailFawad Atwood MD Unavailable [phone] Kary Logan RN Unavailable Unavailab Tyrell Reed Unavailable Unavailab Mally Edward MD Unavailable [phone] Angelica Watson MD Unavailable [phone] Livier Ying RN Unavailable Unavailable Natalie Tian RN Unavailable UnavailLatha Box STONE SETTER METAL OPTICAL FRAMES-PEDIATRIC PATHOLOGIST Unavailable [phone] Kary Logan RN Unavailable Unavailab Lelo Greene STONE SETTER METAL OPTICAL FRAMES-QA CONSULTANT Unavailable [phone] Theodore Oswald PA-C Unavailable Unavail able Meghan Alexander BITE BLOCK MAKER Unavailable Unavailable Leena Borden NOZZLE OPERATOR Unavailable Unavailable Flaquita Manning PharmD Unavailable UnavailMeghan Siddiqi PharmD Unavailable UnavailAleah Cormier STONE SETTER METAL OPTICAL FRAMES-QA CONSULTANT Unavailable [phone] Selma Garcia RN Unavailable Unavailable Rody King RN Unavailable UnavailAron Jolley RN Unavailable Unavailable Ligia Rivera MA Unavailable Unavailable Ani Lira Unavailable Unavailable Carolina Oglesby Unavailable Yana Lelo Lira MD Primary Care Provider [phone] BernardinoМарина Unavailable Unavailable Tarsha Cha STONE SETTER METAL OPTICAL FRAMES-QA CONSULTANT Unavailable [phone] GaldamezSocorro STONE SETTER METAL OPTICAL FRAMES-QA CONSULTANT Unavailable [phone] Jennifer Fung MD Unavailable Encounter Details Date Type Department Care Team (Late st Contact Info) Description 04/06/2014 Lab Requisition [facility] - Lab Cytogenetics [address] [place] [address] Thanh Raymond MD [address] [place], [place] [id number] AML (acute myeloblastic leukemia) (HCC) Social History [...] Associated Diagnosis Comments CYTOGENETICS CANCER PANEL Routine 04/06/2014 2:25 PM DIRECTOR HYDROGEN STORAGE ENGINEERING AML (acute myeloblastic leukemia) [ICD-9-CM] documented in this encounter Results * CYTOGENETICS CANCER PANEL (04/06/2014 2:25 PM DIRECTOR HYDROGEN STORAGE ENGINEERING) Indication for Study Suspected AML- pretreatment FISH AML panel and BCR/ABL1 requested by physician 4 2:01 PM DIRECTOR HYDROGEN STORAGE ENGINEERING [facility] CYTOGENOMIC LAB Results Cytogenetics Fluorescence In-Situ Hybridization (FISH): ??Analysis of 200 [...] onto 11q23 and 16q22, dual labeled probes* D5S23/D3T131 directed onto 5p15.2/5q31, dual labeled probes* CEP7/E2R080 directed onto 7 cent/7q31, dual labeled CEP8/M67W440 directed onto 8cent/20q11.2, and dual labeled dual fusion ETO/AML1 directed onto 8q22/21q22 showed the following results: nuc aidan (EVI1x2)[196/200],(D 5S23,F0U033,EGR1)x2[ 197/200],(D7Z1,D7S48 6)x2[195/200],(CEP8, N50D943)x2[187/200], (ETO,AML1)x2[190/200 ],(MLLx2)(5'MLL sep 3'MLLx21)[85/100],(F OXO1x2)[192/200],(CB FBx2)[190/200] Abnormal showing MLL abnormality in 85% of cells. Analysis and count of 15 cells (12 cells karyotyped, GTL-banding) from 24-hour unstimulated and 72-hour Interleukin stimulated bone marrow cultures showed the following chromosome pattern: 46,XX,t(11;19)(q23;p 13.1)[11]/46,XX[4] 4 2:01 PM [facility] CYTOGENOMIC LAB Interpretation FISH was negative for BCR/ABL1 and PML/CAM [...] associated with ALL. Clinicopathological correlation is suggested. 4 2:01 PM [facility] CYTOGENOMIC LAB Preliminary result electronically signed by Megan Larkin, PhD MG on 04/08/2014 at 3:33 PM Preliminary result electronically signed by Megan Larkin, PhD MG on 04/07/2014 at 1:06 PM Disclaimer *This test was developed, and its performance characteristics determined by [facility] Molecular Cytogenetics Laboratory as required by CLIA [...] by correlating pathology with cytogenetic findings. 4 2:01 PM DIRECTOR HYDROGEN STORAGE ENGINEERING [facility] MOLECULAR CYTOGENOMIC LAB Other BONE MARROW SPECIMEN / Unknown 04/06/2014 2:25 PM DIRECTOR HYDROGEN STORAGE ENGINEERING 04/06/2014 2:26 PM DIRECTOR HYDROGEN STORAGE ENGINEERING Thanh Raymond MD LAB - PATHOLOGY/CYTO LOGY ORDERABLES [facility] CYTOGENOMIC [facility] [place] [id number] documented in this encounter Visit Diagnoses Diagnosis AML (acute myeloblastic leukemia) (HCC) Acute myeloid leukemia, without mention of having achieved remission documented in this encounter Additional Health Concerns Infection Onset Date Last Indicated Resolved Time COVID-19 Under Investigation 01/27/2022 01/27/2022 01/27/2022 9:08 PM CDT COVID-19 Under Investigation 01/28/2022 01/28/2022 01/28/2022 3:39 PM CDT documented as of this encounter Care Teams Fire Extinguisher Charger Relationship Specialty Start Date End Date Unknown, Provider PCP - General 08/18/17 10/19/17 Lelo Lopez MD [address] [place], [place] [id number] PCP - General 10/20/17 Fawad Ruffin MD Hematology and Oncology 09/23/17 Kary Logan, RN 09/23/17 09/24/17 Emily Tyrellalin Bonilla Update Information Referring Physician Oncology 09/25/17 Mally Rogers MD [facility] [place] [address] Hematology and Oncology 09/25/17 Angelica Watson MD [address] [place] [address] Hematology and Oncology 09/25/17 Livier Ying, RN 09/25/17 11/22/20 Natalie Tian, RN Registered Nurse 09/25/17 Latha Ordoñez, STONE SETTER METAL OPTICAL FRAMES-PEDIATRIC PATHOLOGIST [address] [place] [address] [address]nd [place] [address] Oncology 09/25/17 Kary Logan, RN 09/25/17 11/22/20 Lelo Becerra, STONE SETTER METAL OPTICAL FRAMES-QA CONSULTANT [address] [place] [address] [place] [address] Family Medicine 09/25/17 11/22/20 Theodore Oswald PA-C [address] [place] [address] [address] [place] [address] Physician Antique Collector 09/25/17 Meghan Jurado, BITE BLOCK MAKER Personal Development Mentor 09/25/17 11/22/20 Leena Borden CSW Personal Development Mentor 09/25/17 Flaquita Manning, PharmD 09/25/17 Meghan Maya, MarkusD 09/25/17 06/30/19 Aleah Giordano STONE SETTER METAL OPTICAL FRAMES-QA CONSULTANT Family Medicine 09/25/17 11/22/20 Selma Garcia, VALERIA 10/20/17 11/22/20 Rody King, VALERIA 10/20/17 11/22/20 Aron Powell, VALERIA 10/20/17 06/30/19 Ligia Rivera MA 10/20/17 06/30/19 Ani Lira 10/20/17 11/22/20 Carolina Oglesby 10/20/17 Марина Lebron Aoc Operations Intelligence Chief Psychiatry 10/20/17 08/10/18 Tarsha Cha APRN-CNP [address] DIV OF HEMATOLOGY & [place] [address] Nurse Practitioner Family 10/04/20 Socorro Galdamez APRN-CNP [address] DIV OF HEMATOLOGY & [place] [address] Nurse Practitioner 10/04/20 Jennifer Fung MD [address] DIV OF HEMATOLOGY & [place] [address] Hematology and Oncology 11/23/21 documented as of this encounter
--- OUTSIDE RECORDS SUMMARY | 2024-05-27 23:20 | XMS_ITS | Encounter Summary ---
Author Organization [facility] Address [address] [place] [address] Care Team Providers Care Chainman Name Role Phone Unknown, Provider Primary Care Provider UnavailFawad Atwood MD Unavailable [phone] Kary Logan RN Unavailable Unavailab Tyrell Reed Unavailable Unavailab Mally Edward MD Unavailable [phone] Angelica Watson MD Unavailable [phone] Livier Ying RN Unavailable Unavailable Natalie Tian RN Unavailable UnavailLatha Box NETWORK OPERATIONS CENTER TECHNICIAN-CHANGE OVER Unavailable [phone] Kary Logan RN Unavailable Unavailab Lelo Greene NETWORK OPERATIONS CENTER TECHNICIAN-ORNAMENTAL IRON WORKER HELPER Unavailable [phone] Theodore Oswald PA-C Unavailable Unavail able Meghan Alexander CHILD CARE CENTER ASSISTANT DIRECTOR Unavailable Unavailable Leena Borden LACQUER PIN PRESS OPERATOR Unavailable Unavailable Flaquita Manning PharmD Unavailable UnavailMeghan Siddiqi PharmD Unavailable UnavailAleah Cormier NETWORK OPERATIONS CENTER TECHNICIAN-ORNAMENTAL IRON WORKER HELPER Unavailable [phone] Selma Garcia RN Unavailable Unavailable Rody King RN Unavailable UnavailAron Jolley RN Unavailable Unavailable Ligia Rivera MA Unavailable Unavailable Ani Lira Unavailable Unavailable Carolina Oglesby Unavailable Yana Lelo Lira MD Primary Care Provider [phone] BernardinoМарина Unavailable Unavailable Tarsha Cha NETWORK OPERATIONS CENTER TECHNICIAN-ORNAMENTAL IRON WORKER HELPER Unavailable [phone] GaldamezSocorro NETWORK OPERATIONS CENTER TECHNICIAN-ORNAMENTAL IRON WORKER HELPER Unavailable [phone] Jennifer Fung MD Unavailable Encounter Details Date Type Department Care Team (Late st Contact Info) Description 06/24/2014 Lab Requisition [facility] - Lab Cytogenetics [address] [place] [address] Fawad Ruffin MD [address] [place] [address] Rd [address] [place] [address] AML (acute myeloblastic leukemia) (HCC) [...] Associated Diagnosis Comments CYTOGENETICS CANCER PANEL Routine 06/24/2014 10:31 AM BINDER TECHNICIAN AML (acute myeloblastic leukemia) [ICD-9-CM] documented in this encounter Results * CYTOGENETICS CANCER PANEL (06/24/2014 10:31 AM BINDER TECHNICIAN) Indication for Study 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 MOLECULAR CYTOGENOMIC LAB Results Cytogenetics Analysis of 500 interphase cells from the peripheral oncology blood hybridized to dual labeled X and Y specific alpha satellite probes* showed the following results: ? nuc aidan(DXZ1x2)[5/500]// (DXZ1,DYZ3)x1[493/50 0] 98% donor 5 1:48 PM [facility] MOLECULAR CYTOGENOMIC LAB Interpretation Fluorescence in-situ [...] found to be of donor origin. 5 1:48 PM [facility] MOLECULAR CYTOGENOMIC LAB Disclaimer *This test was developed, and its performance characteristics determined by [facility] Molecular Cytogenetics Laboratory as required by CLIA [...] by correlating pathology with cytogenetic findings. 5 1:48 PM [facility] MOLECULAR CYTOGENOMIC LAB Historical Cytogenomic Report on 05/03/2014 Results: Fluorescence In-Situ Hybridization (FISH): Analysis of 500 interphase cells hybridized with specific labeled fluorescent probes*: break apart MLL probes* directed onto 11q23 showed the following results: ? nuc aidan (MLLx2)[467/500] Normal Interpretation: To rule out minimal residual disease of the previously identified clonal abnormality (see below;[id number]), FISH was performed using specific probes* as listed in the result section. FISH was negative indicating a possible disease remission. The previous study ([id number])showed a separation of the MLL signals in less than 1% of cells. ??Clinicopathologica l correlation is suggested. at 1715 on 04/20/2014 Results: Fluorescence In-Situ Hybridization (FISH): Analysis of 500 interphase cells hybridized with specific labeled fluorescent probes*: break apart MLL probes* directed onto 11q23 showed the following results: ? nuc aidan (MLLx2)(5'MLL sep 3'MLLx1)[4/500] Abnormal showing MLL abnormality in less than 1% of cells. ?? Interpretation: To rule out a minimal residual [...] signals in 85% of cells. at 2006 ?? on 04/06/2014 Results: Fluorescence In-Situ Hybridization (FISH): [...] onto 11q23 and 16q22, dual labeled probes* D5S23/I4L116 directed onto 5p15.2/5q31, dual labeled probes* CEP7/O5G033 directed onto 7 cent/7q31, dual labeled CEP8/W07L856 directed onto 8cent/20q11.2, and dual labeled dual fusion ETO/AML1 directed onto 8q22/21q22 showed the following results: ? nuc aidan (EVI1x2)[196/200],(D 5S23,D6H712,EGR1)x2[ 197/200],(D7Z1,D7S48 6)x2[195/200],(CEP8, U81A298)x2[187/200], (ETO,AML1)x2[190/200 ],(MLLx2)(5'MLL sep 3'MLLx21)[85/100],(F OXO1x2)[192/200],(CB FBx2)[190/200] Abnormal [...] determine the partner of 11q23 rearrangement. ?? 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 The 4 remaining cells appeared normal. This type of translocation is associated with AML-M4 or M5. Similar translocation but with a breakpoint at 19p13.3 is associated with ALL. Clinicopathological correlation is suggested. ?? at 1401 Preliminary result electronically signed by Megan Larkin, PhD [facility]BM[facility] on 04/08/2014 at 1533 ?? Preliminary result electronically signed by Megan Larkin, PhD [facility] on 04/07/2014 at 1306 5 1:48 PM [facility] MOLECULAR CYTOGENOMIC LAB Client Information [facility] ??- ??[id number] [facility] Lab Number: ??[id number]; [id number] 5 1:48 PM [facility] MOLECULAR CYTOGENOMIC LAB Other BLOOD SPECIMEN / Unknown 06/24/2014 10:31 AM BINDER TECHNICIAN 06/24/2014 10:31 AM BINDER TECHNICIAN Fawad Ruffin MD LAB - PATHOLOGY/CY TOLOGY ORDERABLES [facility] MOLECULAR CYTOGENOMIC LAB [address] [place] [address] documented in this encounter Visit Diagnoses Diagnosis AML (acute myeloblastic leukemia) (HCC) Acute myeloid leukemia, without mention of having achieved remission documented in this encounter Additional Health Concerns Infection Onset Date Last Indicated Resolved Time COVID-19 Under Investigation 01/27/2022 01/27/2022 01/27/2022 9:08 PM CDT COVID-19 Under Investigation 01/28/2022 01/28/2022 01/28/2022 3:39 PM CDT documented as of this encounter Care Teams Chainman Relationship Specialty Start Date End Date Unknown, Provider PCP - General 08/18/17 10/19/17 Lelo Lopez MD [address] [place], [place] [id number] PCP - General 10/20/17 Fawad Ruffin MD Hematology and Oncology 09/23/17 Kary Logan, RN 09/23/17 09/24/17 Tyrell Diaz Update Information Referring Physician Oncology 09/25/17 Mally Rogers MD [facility] [place] [address] Hematology and Oncology 09/25/17 Angelica Watson MD [facility] [place] [address] Hematology and Oncology 09/25/17 Livier Ying, RN 09/25/17 11/22/20 Natalie Tian, RN Registered Nurse 09/25/17 Latha Ordoñze APRN-CHANGE OVER [address] [place] [address] 2nd [place] [address] Oncology 09/25/17 Kary Logan RN 09/25/17 11/22/20 Lelo Becerra APRN-ORNAMENTAL IRON WORKER HELPER [address] [facility] 2nd [place] [address] [facility] Medicine 09/25/17 11/22/20 Theodore Oswald PA-C [address] [facility] [place] [address] Physician Slab Depiler Operator 09/25/17 Meghan Jurado, CHILD CARE CENTER ASSISTANT DIRECTOR Car Usher 09/25/17 11/22/20 Leena Borden, [facility] Car Usher 09/25/17 Flaquita Manning, PharmD 09/25/17 Meghan Maya, PharmD 09/25/17 06/30/19 Aleah Giordano, NETWORK OPERATIONS CENTER TECHNICIAN-[facility] 09/25/17 11/22/20 Selma Garcia, RN 10/20/17 11/22/20 Rody King, VALERIA 10/20/17 11/22/20 Aron Powell, VALERIA 10/20/17 06/30/19 Ligia Rivera MA 10/20/17 06/30/19 Ani Lira 10/20/17 11/22/20 Carolina Oglesby 10/20/17 Марина Lebron Manager Bilingual Psychiatry 10/20/17 08/10/18 Tarsha Cha NETWORK OPERATIONS CENTER TECHNICIAN-[facility] [address] DIV OF HEMATOLOGY & [place] [address] Nurse Practitioner Family 10/04/20 Socorro Galdamez, NETWORK OPERATIONS CENTER TECHNICIAN-ORNAMENTAL IRON WORKER HELPER [address] DIV OF HEMATOLOGY & [place] [address] Nurse Practitioner 10/04/20 Jennifer Fung MD [address] DIV OF HEMATOLOGY & [place] [address] Hematology and Oncology 11/23/21 documented as of this encounter
--- OUTSIDE RECORDS SUMMARY | 2024-05-27 23:20 | XMS_ITS | Encounter Summary ---
Author Organization [facility] Address [address] [facility] [place] [address] Care Team Providers Care Process Helper Name Role Phone Unknown, Provider Primary Care Provider UnavailFawad Atwood MD Unavailable [phone] Kary Logan RN Unavailable Unavailab Tyrell Reed Unavailable Unavailab Mally Edward MD Unavailable [phone] Angelica Watson MD Unavailable [phone] Livier Ying RN Unavailable Unavailable Natalie Tian RN Unavailable UnavailLatha Box QUALITY FACILITATOR-COMPLIANCE PROGRAM MANAGER Unavailable [phone] Kary Logan RN Unavailable Unavailab Lelo Greene QUALITY FACILITATOR-FLAT CUTTER Unavailable [phone] Theodore Oswald PA-C Unavailable Unavail able Meghan Alexander CRISIS CLINICIAN Unavailable Unavailable eLena Borden HEALTH SAFETY INSTRUCTOR Unavailable Unavailable Flaquita Manning PharmD Unavailable UnavailMeghan Siddiqi PharmD Unavailable UnavailAleah Cormier QUALITY FACILITATOR-FLAT CUTTER Unavailable [phone] Selma Garcia RN Unavailable Unavailable Rody King RN Unavailable UnavailAron Jolley RN Unavailable Unavailable Ligia Rivera MA Unavailable Unavailable Ani Lira Unavailable Unavailable Carolina Oglesby Unavailable Yana Lelo Lira MD Primary Care Provider [phone] BernardinoIsmaМарина Unavailable Unavailable Tarsha Cha QUALITY FACILITATOR-FLAT CUTTER Unavailable [phone] GaldamezSocorro QUALITY FACILITATOR-FLAT CUTTER Unavailable [phone] Jennifer Fung MD Unavailable Encounter Details Date Type Department Care Team (Late st Contact Info) Description 08/01/2014 Lab Requisition [facility] - Lab Cytogenetics [address] [place] [address] Fawad Ruffin MD [address] [place] [address] Rd [address] [place] [address] AML (acute myeloblastic leukemia) (HCC) [...] Associated Diagnosis Comments CYTOGENETICS CANCER PANEL Routine 08/01/2014 12:00 AM CDT AML (acute myeloblastic leukemia) [ICD-9-CM] documented in this encounter Results * CYTOGENETICS CANCER PANEL (08/01/2014 12:00 AM CDT) Indication for Study History of AML (Post-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 nuc aidan //(DXZ1,DYZ3)x1[499/ 500] 99% donor 5 11:58 AM CDT [facility] MOLECULAR CYTOGENOMIC LAB Interpretation Fluorescence in-situ [...] found to be of donor origin. 5 11:58 AM [facility] MOLECULAR CYTOGENOMIC LAB Comment *This test was developed, and its performance characteristics determined by [facility] Molecular Cytogenetics Laboratory as required by [...] by correlating pathology with cytogenetic findings. 5 11:58 AM [facility] MOLECULAR CYTOGENOMIC LAB Historical Cytogenomic Report [id number] on 07/11/2014 Results Analysis of 500 interphase cells from the peripheral oncology blood hybridized to dual labeled X and Y specific alpha satellite probes* showed the following results: ? nuc aidan(DXZ1x2)[2/500]// (DXZ1,DYZ3)x1[495/50 0] 99% donor Interpretation [...] were found to be of donor origin. [id number] on 06/24/2014 Results: Analysis of 500 interphase cells from the peripheral oncology blood hybridized to dual labeled X and Y specific alpha satellite probes* showed the following results: ? nuc aidan(DXZ1x2)[5/500]// (DXZ1,DYZ3)x1[493/50 0] 98% donor ?? Interpretation: Fluorescence in-situ hybridization study using X(DXZ1) and Y(DYZ1/DYZ3) specific alpha satellite probes showed 98% XY (donor cells) and 1% XX (patient cells). The remaining percentage of cells had one signal of X of unknown origin in less than 1% of cells. ??No chromosome analysis was performed because 98% of interphase cells were found to be of donor origin. Electronically signed by Megan Larkin, PhD [facility] on 06/27/2014 at 1348 ?? [id number] on 05/03/2014 Results: Fluorescence In-Situ Hybridization (FISH): Analysis of 500 interphase cells hybridized with specific labeled fluorescent probes*: break apart MLL probes* directed onto 11q23 showed the following results: ? nuc aidan (MLLx2)[467/500] Normal ?? Interpretation: To rule out minimal residual disease of the previously identified clonal abnormality (see below;[id number]), FISH was performed using specific probes* as listed in the result section. FISH was negative indicating a possible disease remission. The previous study ([id number])showed a separation of the MLL signals in less than 1% of cells. ??Clinicopathologica l correlation is suggested. ?? at 1715 on 04/20/2014 Results: Fluorescence In-Situ [...] 85% of cells. ?? at 2006 ?? on 04/06/2014 Results: Fluorescence [...] onto 11q23 and 16q22, dual labeled probes* D5S23/Q6O420 directed onto 5p15.2/5q31, dual labeled probes* CEP7/L0V967 directed onto 7 cent/7q31, dual labeled CEP8/Y10M531 directed onto 8cent/20q11.2, and dual labeled dual fusion ETO/AML1 directed onto 8q22/21q22 showed the following results: ? nuc aidan (EVI1x2)[196/200],(D 5S23,N9L016,EGR1)x2[ 197/200],(D7Z1,D7S48 6)x2[195/200],(CEP8, K93Z694)x2[187/200], (ETO,AML1)x2[190/200 ],(MLLx2)(5'MLL sep 3'MLLx21)[85/100],(F OXO1x2)[192/200],(CB FBx2)[190/200] Abnormal [...] determine the partner of 11q23 rearrangement. ? === Abnormal female chromosome analysis showing 46,XX [...] Larkin, PhD ABM[facility] on 04/08/2014 at 1533 ? Preliminary result electronically signed by Megan Larkin, PhD ABM[facility] on 04/07/2014 at 1306 5 11:58 AM CDT [facility] MOLECULAR CYTOGENOMIC LAB Client Information [facility] ??- ??[id number] [facility] Lab Number: [id number] chrom, [id number] FISH 5 11:58 AM CDT [facility] MOLECULAR CYTOGENOMIC LAB Other BONE MARROW SPECIMEN / Unknown 08/01/2014 08/01/2014 4:10 PM CDT Fawad Ruffin MD LAB - PATHOLOGY/CY TOLOGY ORDERABLES [facility] MOLECULAR CYTOGENOMIC LAB [address] [place] [address] documented in this encounter Visit Diagnoses Diagnosis AML (acute myeloblastic leukemia) (HCC) Acute myeloid leukemia, without mention of having achieved remission documented in this encounter Additional Health Concerns Infection Onset Date Last Indicated Resolved Time COVID-19 Under Investigation 01/27/2022 01/27/2022 01/27/2022 9:08 PM CDT COVID-19 Under Investigation 01/28/2022 01/28/2022 01/28/2022 3:39 PM CDT documented as of this encounter Care Teams Process Helper Relationship Specialty Start Date End Date Unknown, Provider PCP - General 08/18/17 10/19/17 Lelo Lopez MD [address] [place] [address] PCP - General 10/20/17 Fawad Ruffin MD Hematology and Oncology 09/23/17 Kary Logan, RN 09/23/17 09/24/17 Tyrell Diaz Update Information Referring Physician Oncology 09/25/17 Mally Rogers MD [address] [place] [address] Hematology and Oncology 09/25/17 Angelica Watson MD [address] [place] [address] Hematology and Oncology 09/25/17 Livier Ying, RN 09/25/17 11/22/20 Natalie Tian, RN Registered Nurse 09/25/17 Latha Ordoñez, QUALITY FACILITATOR-COMPLIANCE PROGRAM MANAGER [address] [facility] [place] [address] Oncology 09/25/17 Kary Logan, RN 09/25/17 11/22/20 Lelo Becerra, QUALITY FACILITATOR-FLAT CUTTER [address] [facility] [place] [address] Family Medicine 09/25/17 11/22/20 Theodore Oswald PA-C [address] [facility] [place] [address] Physician Plant Health Manager 09/25/17 0 Meghan Alexander, CRISIS CLINICIAN Integrated Circuits Inspector 09/25/17 11/22/20 Leena Borden, HEALTH SAFETY INSTRUCTOR Integrated Circuits Inspector 09/25/17 Flaquita Manning, PharmD 09/25/17 Meghan Maya, PharmD 09/25/17 06/30/19 Aleah Giordano, QUALITY FACILITATOR-[facility] Family Medicine 09/25/17 11/22/20 Selma Garcia, RN 10/20/17 11/22/20 Rody King, RN 10/20/17 11/22/20 Aron Powell, VALERIA 10/20/17 06/30/19 Ligia Rivera MA 10/20/17 06/30/19 Ani Lira 10/20/17 11/22/20 Carolina Oglesby 10/20/17 Марина Lebron Prior Authorization Technician Psychiatry 10/20/17 08/10/18 Tarsha Cha, QUALITY FACILITATOR-[facility] [address] DIV OF HEMATOLOGY & [place] [address] Nurse Practitioner Family 10/04/20 Socorro Galdamez, QUALITY FACILITATOR-[facility] [address] DIV OF HEMATOLOGY & [place] [address] Nurse Practitioner 10/04/20 Jennifer Fung MD [address] DIV OF HEMATOLOGY & [place] [address] Hematology and Oncology 11/23/21 documented as of this encounter
== END 2024-05-26 10:39 | disposition home or self-care (01) ==
LOC: ANHGOSHLAB 10:39
PROVIDERS: PCP Family Medicine; Visit Provider Family Medicine
DX: E11.9 Type 2 diabetes mellitus without complications (principal)
CPT/HCPCS: 36415; 80053; 80061; 82043; 83036

== ENCOUNTER 2024-11-30 00:24 | Emergency (ER) | payer MEDICARE, MEDICAID, SELFPAY ==
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
--- OUTSIDE RECORDS SUMMARY | 2024-11-30 00:27 | XMS_ITS | Encounter Summary ---
Author Organization [facility] Address [address] [place] [address] Care Team Providers Care Run Lead Name Role Phone Unknown, Provider Primary Care Provider Unavaila Fawad Tony MD Unavailable [phone] Kary Logan RN Unavailable Unavailab Tyrell Reed Unavailable Unavailab Mally Edward MD Unavailable [phone] Angelica Watson MD Unavailable [phone] Livier Ying RN Unavailable Unavailable Natalie Tian RN Unavailable UnavailLatha Box OUTREACH COORDINATOR-SHUT OFF WORKER Unavailable [phone] Kary Logan RN Unavailable Unavailab Lelo Greene OUTREACH COORDINATOR-SUPERVISOR PROPERTIES Unavailable [phone] Theodore Oswald PA-C Unavailable Unavail able Meghan Alexander HOME OFFICE CLAIM SPECIALIST Unavailable Unavailab Leena Escobedo BUFFET RUNNER Unavailable Unavailable Flaquita Manning PharmD Unavailable Unavaila Meghan EdwardsD Unavailable UnavailAleah Cormier OUTREACH COORDINATOR-SUPERVISOR PROPERTIES Unavailable [phone] Selma Garcia RN Unavailable Unavailable Rody King RN Unavailable UnavailAron Jolley RN Unavailable Unavailable Ligia Rivera MA Unavailable Unavailable Ani Lira Unavailable Unavailable Carolina Oglesby Unavailable Yana Lelo Lira MD Primary Care Provider [phone] Марина Lebron Unavailable Unavailable Tarsha Cha OUTREACH COORDINATOR-SUPERVISOR PROPERTIES Unavailable [phone] GaldamezSocorro OUTREACH COORDINATOR-SUPERVISOR PROPERTIES Unavailable [phone] Jennifer Fung MD Unavailable Encounter Details Date Type Department Care Team (Late st Contact Info) Description 09/19/2014 Lab Requisition [facility] - Lab Cytogenetics [address] [place] [address] Juanito Pimentel MD [address] [place], [place] [id number] AML (acute myeloblastic leukemia) Social History Tobacco Use Types Packs/Day Years Used Date Smoking Tobacco: Never Assessed Comments Unknown Sex and Gender Information Value Date Recorded Sex Assigned at Not on file Legal 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 5 9:20 AM CDT [facility] MOLECULAR CYTOGENOMIC LAB at 0920 CDT Disclaimer *This test was developed, and its performance characteristics determined [facility] Molecular Cytogenetics Laboratory as required by [...] pathology with cytogenetic findings. 5 9:20 AM CDT [facility] MOLECULAR CYTOGENOMIC LAB Historical Cytogenomic Report [id number] on 09/15/2014 Results: Analysis of 500 interphase [...] verified: 09/15/2014 1742 by Vivian Ho, PhD [facility] [id number] on 08/02/2014 Results: Analysis of 500 interphase [...] verified: 08/02/2014 1158 by Megan Larkin, PhD [facility] [id number] on 07/13/2014 Results: Analysis of 500 interphase cells from the peripheral oncology blood hybridized to dual labeled X and Y specific alpha satellite probes* showed the following results: nuc iadan(DXZ1x2)[2/500]// (DXZ1,DYZ3)x1[495/50 0] 99% donor Interpretation: Fluorescence in-situ [...] verified: 07/13/2014 1330 by Megan Larkin, PhD [facility] [id number] on 06/27/2014 Results: Analysis of 500 interphase [...] verified: 06/27/2014 1348 by Megan Larkin, PhD [facility] [id number] on 05/09/2014 Results: Fluorescence In-Situ Hybridization (FISH): Analysis of 500 interphase cells hybridized with specific labeled fluorescent probes*: break apart MLL probes* directed onto 11q23 showed the following results: nuc aidan (MLLx2)[467/500] Normal Interpretation: To rule out minimal residual disease of the previously identified clonal abnormality (see below;[id number]), FISH was performed using specific probes* as listed in the result section. FISH was negative indicating a possible disease remission. The previous study ([id number])showed a separation of the MLL signals in less than 1% of cells. Clinicopathological correlation is suggested. Last verified: 05/09/2014 1715 by Vivian Ho, PhD [facility] [id number] on 04/20/2014 Results: Fluorescence In-Situ Hybridization (FISH): Analysis of 500 interphase cells hybridized with specific labeled fluorescent probes*: break apart MLL probes* directed onto 11q23 showed the following results: nuc aidan (MLLx2)(5'MLL sep 3'MLLx1)[4/500] Abnormal showing MLL abnormality in less than 1% of cells. Interpretation: To rule out a minimal residual disease of the previously identified clonal abnormality (see below;[id number]), FISH was performed using specific probes* as [...] onto 11q23 and 16q22, dual labeled probes* D5S23/Z8W820 directed onto 5p15.2/5q31, dual labeled probes* CEP7/I3M243 directed onto 7 cent/7q31, dual labeled CEP8/Z88A023 directed onto 8cent/20q11.2, and dual labeled dual fusion ETO/AML1 directed onto 8q22/21q22 showed the following results: nuc aidan (EVI1x2)[196/200],(D 5S23,I0U208,EGR1)x2[ 197/200],(D7Z1,D7S48 6)x2[195/200],(CEP8, I40S776)x2[187/200], (ETO,AML1)x2[190/200 ],(MLLx2)(5'MLL sep 3'MLLx21)[85/100],(F OXO1x2)[192/200],(CB FBx2)[190/200] Abnormal [...] electronically signed by Megan Larkin, PhD on 04/08/2014 at 1533 Preliminary result electronically signed by Megan Larkin, PhD on 04/07/2014 at 1306 05/ 5 9:20 AM CDT [facility] MOLECULAR CYTOGENOMIC LAB Client Information [id number] Lab Numbers: [id number] FISH 9:20 AM CDT [facility] MOLECULAR CYTOGENOMIC LAB Other BLOOD SPECIMEN / Unknown 09/19/2014 09/19/2014 4:29 PM CDT us Juanito Pimentel MD LAB - PATHOLOGY/CYTOLOGY MARICARMEN NEW Final Result [facility] MOLECULAR CYTOGENOMIC [place] [address] documented in this encounter Visit Diagnoses Diagnosis AML (acute myeloblastic leukemia) (HCC) Acute myeloid leukemia, without mention of having achieved remission documented in this encounter Additional Health Concerns Infection Onset Date Last Indicated Resolved Time COVID-19 Under Investigation 01/27/2022 01/27/2022 01/27/2022 9:08 PM CDT COVID-19 Under Investigation 01/28/2022 01/28/2022 01/28/2022 3:39 PM CDT documented as of this encounter Care Teams Run Lead Relationship Specialty Start Date End Date Unknown, Provider PCP - General 08/18/17 10/19/17 Lelo Lopez MD [address] [place] [address] PCP - General 10/20/17 Fawad Ruffin MD Hematology and Oncology 09/23/17 Kary Logan RN 09/23/17 09/24/17 Tyrell Diaz Update Information Referring Physician Oncology 09/25/17 Mally Rogers MD [address] [place], [place] [id number] Hematology and Oncology 09/25/17 Angelica Watson MD [address] [place], [place] [id number] Hematology and Oncology 09/25/17 Livier Ying, RN 09/25/17 11/22/20 Natalie Tian, RN Registered Nurse 09/25/17 Latha Ordoñez, OUTREACH COORDINATOR-SHUT OFF WORKER [address] [facility] 2nd [place] [address] Oncology 09/25/17 Kary Logan, RN 09/25/17 11/22/20 Lelo Becerra, OUTREACH COORDINATOR-SUPERVISOR PROPERTIES [address] [place] [address] Family Medicine 09/25/17 11/22/20 Theodore Oswald PA-C [address] [place] [address] Physician Case Management Assistant 09/25/17 Meghan Jurado, HOME OFFICE CLAIM SPECIALIST Hair Or Beauty Salon Manager 09/25/17 11/22/20 Leena Borden, BUFFET RUNNER Hair Or Beauty Salon Manager 09/25/17 Flaquita Manning, PharmD 09/25/17 Meghan Maya, PharmD 09/25/17 06/30/19 Aleah Giordano, OUTREACH COORDINATOR-SUPERVISOR PROPERTIES Family Medicine 09/25/17 11/22/20 Selma Garcia, VALERIA 10/20/17 11/22/20 Rody King, VALERIA 10/20/17 11/22/20 Aron Powell, VALERIA 10/20/17 06/30/19 Ligia Rivera MA 10/20/17 06/30/19 Ani Lira 10/20/17 11/22/20 Carolina Oglesby 10/20/17 Марина Lebron Extruding Machine Operator Psychiatry 10/20/17 08/10/18 Tarsha Cha, OUTREACH COORDINATOR-SUPERVISOR PROPERTIES [address] [facility] [place] [address] Nurse Practitioner Family 10/04/20 Socorro Galdamez APRN-NARINDER [address] [facility] [place], [place] [id number] Nurse Practitioner 10/04/20 Jennifer Fung MD [address] [facility] [place] [address] Hematology and Oncology 11/23/21 documented as of this encounter
--- OUTSIDE RECORDS SUMMARY | 2024-11-30 00:27 | XMS_ITS | Encounter Summary ---
Author Organization [facility] Address [address] [place] [address] Care Team Providers Care Scrapper Name Role Phone Unknown, Provider Primary Care Provider Unavaila Fawad Tony MD Unavailable [phone] Kary Logan RN Unavailable Unavailab Tyrell Reed Unavailable Unavailab Mally Edward MD Unavailable [phone] Angelica Watson MD Unavailable [phone] Livier Ying RN Unavailable Unavailable Natalie Tian RN Unavailable UnavailLatha Box ADVERTISING STRATEGIST-STOREHOUSE CLERK Unavailable [phone] Kary Logan RN Unavailable Unavailab Lelo Greene ADVERTISING STRATEGIST-ICE CREAM VAN VENDOR Unavailable [phone] Theodore Oswald PA-C Unavailable Unavail able Meghan Alexander TRAILERS AND MOTOR HOMES SALESPERSON Unavailable Unavailab Leena Escobedo MEASURER MACHINE Unavailable Unavailable Flaquita Manning PharmD Unavailable Unavaila Meghan EdwardsD Unavailable UnavailAleah Cormier ADVERTISING STRATEGIST-ICE CREAM VAN VENDOR Unavailable [phone] Selma Garcia RN Unavailable Unavailable Rody King RN Unavailable UnavailAron Jolley RN Unavailable Unavailable Ligia Rivera MA Unavailable Unavailable Ani Lira Unavailable Unavailable Carolina Oglesby Unavailable Yana Lelo Lira MD Primary Care Provider [phone] Марина Lebron Unavailable Unavailable Tarsha Cha ADVERTISING STRATEGIST-ICE CREAM VAN VENDOR Unavailable [phone] GaldamezSocorro ADVERTISING STRATEGIST-ICE CREAM VAN VENDOR Unavailable [phone] Jennifer Fung MD Unavailable Encounter Details Date Type Department Care Team (Late st Contact Info) Description 04/20/2014 Lab Requisition [facility] - Lab Cytogenetics [address] [place] [address] Thanh Raymond MD [address] [place], [place] [id number] AML (acute myeloblastic leukemia) Social History Tobacco Use Types Packs/Day Years Used Date Smoking Tobacco: Never Assessed Comments Unknown Sex and Gender Information Value Date Recorded Sex Assigned at Not on file Legal Sex Female 2:19 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 MOLECULAR CYTOGENOMIC LAB Results Cytogenetics Fluorescence In-Situ Hybridization (FISH): Analysis of 500 interphase cells hybridized with specific labeled fluorescent probes*: break apart MLL probes* directed onto 11q23 showed the following results: nuc aidan (MLLx2)(5'MLL sep 3'MLLx1)[4/500] Abnormal showing MLL abnormality in less than 1% of cells. 4 8:06 PM [facility] MOLECULAR CYTOGENOMIC LAB Interpretation To rule out a minimal residual disease of the previously identified clonal abnormality (see below;[id number]), FISH was performed using specific probes* as [...] other clinicopathological findings. The previous study ( [id number]) showed a separation of the signals in 85% of cells. 4 8:06 PM BAG BAILER [facility] MOLECULAR CYTOGENOMIC LAB at 2006 BAG BAILER Disclaimer *This test was developed, and its performance characteristics determined by [facility] Molecular Cytogenetics Laboratory as required by [...] pathology with cytogenetic findings. 4 8:06 PM [facility] MOLECULAR CYTOGENOMIC LAB Historical Cytogenomic Report [id number] on 04/06/2014 Results: Fluorescence In-Situ Hybridization (FISH): [...] onto 11q23 and 16q22, dual labeled probes* D5S23/C2Z430 directed onto 5p15.2/5q31, dual labeled probes* CEP7/M5C956 directed onto 7 cent/7q31, dual labeled CEP8/G48I724 directed onto 8cent/20q11.2, and dual labeled dual fusion ETO/AML1 directed onto 8q22/21q22 showed the following results: nuc aidan (EVI1x2)[196/200],(D 5S23,U1U917,EGR1)x2[ 197/200],(D7Z1,D7S48 6)x2[195/200],(CEP8, N80Y023)x2[187/200], (ETO,AML1)x2[190/200 ],(MLLx2)(5'MLL sep 3'MLLx21)[85/100],(F OXO1x2)[192/200],(CB FBx2)[190/200] Abnormal [...] 1401 Preliminary result electronically signed by Megan Larkin PhD AB on 04/08/2014 at 1533 Preliminary result electronically signed by Megan Larkin PhD AB on 04/07/2014 at 1306 4 8:06 PM [facility] MOLECULAR CYTOGENOMIC LAB Client Information [facility] - [id number] 4 8:06 PM [facility] MOLECULAR CYTOGENOMIC LAB Other BONE MARROW SPECIMEN / Unknown 04/20/2014 3:11 PM BAG BAILER 04/20/2014 3:11 PM BAG BAILER us Thanh Raymond MD LAB - PATHOLOGY/CYTOLOGY ORDERA BLES Final Result [facility] MOLECULAR CYTOGENOMIC [place] [address] documented in this encounter Visit Diagnoses Diagnosis AML (acute myeloblastic leukemia) (HCC) Acute myeloid leukemia, without mention of having achieved remission documented in this encounter Additional Health Concerns Infection Onset Date Last Indicated Resolved Time COVID-19 Under Investigation 01/27/2022 01/27/2022 01/27/2022 9:08 PM CDT COVID-19 Under Investigation 01/28/2022 01/28/2022 01/28/2022 3:39 PM CDT documented as of this encounter Care Teams Scrapper Relationship Specialty Start Date End Date Unknown, Provider PCP - General 08/18/17 10/19/17 Lelo Lopez MD [address] [place] [address] PCP - General 10/20/17 Fawad Ruffin MD Hematology and Oncology 09/23/17 Kary Logan RN 09/23/17 09/24/17 Tyrell Diaz Update Information Referring Physician Oncology 09/25/17 Mally Rogers MD [address] [place] [address] Hematology and Oncology 09/25/17 Angelica Watson MD [address] [place] [address] Hematology and Oncology 09/25/17 Livier Ying, RN 09/25/17 11/22/20 Natalie Tian, RN Registered Nurse 09/25/17 Latha Ordoñez, ADVERTISING STRATEGIST-STOREHOUSE CLERK [address] [facility] [address] F[facility] [place] [address] Oncology 09/25/17 Kary Logan, RN 09/25/17 11/22/20 Lelo Becerra, ADVERTISING STRATEGIST-ICE CREAM VAN VENDOR [address] [facility] 2nd FLOOR [place] [address] Family Medicine 09/25/17 11/22/20 Theodore Oswald PA-C [address] [facility] 2nd FLOOR [place] [address] Physician Strategy Associate 09/25/17 Meghan Jurado, TRAILERS AND MOTOR HOMES SALESPERSON Provider Network Manager 09/25/17 11/22/20 Leena Borden, MEASURER MACHINE Provider Network Manager 09/25/17 Flaquita Manning, PharmD 09/25/17 Meghan Maya, MarkusD 09/25/17 06/30/19 Aleah Giordano, ADVERTISING STRATEGIST-ICE CREAM VAN VENDOR Family Medicine 09/25/17 11/22/20 Selma Garcia, VALERIA 10/20/17 11/22/20 Rody King, VALERIA 10/20/17 11/22/20 Aron Powell, VALERIA 10/20/17 06/30/19 Ligia Rivera MA 10/20/17 06/30/19 Ani Lira 10/20/17 11/22/20 Carolina Oglesby 10/20/17 Марина Lebron Stamping Machine Operator Psychiatry 10/20/17 08/10/18 Tarsha Cha ADVERTISING STRATEGIST-ICE CREAM VAN VENDOR [address] [facility] [place] [address] Nurse Practitioner Family 10/04/20 Socorro Galdamez, ADVERTISING STRATEGIST-ICE CREAM VAN VENDOR [address] DIV OF HEMATOLOGY & [place] [address] Nurse Practitioner 10/04/20 Jennifer Fung MD [facility] OF HEMATOLOG[facility] [place] [address] Hematology and Oncology 11/23/21 documented as of this encounter
--- OUTSIDE RECORDS SUMMARY | 2024-11-30 00:27 | XMS_ITS | Encounter Summary ---
Author Organization [facility] Address [address] [address] Care Team Providers Care Last Repairer Helper Name Role Phone Unknown, Provider Primary Care Provider Unavaila Fawad Tony MD Unavailable [phone] Kary Logan RN Unavailable Unavailab Tyrell Reed Unavailable Unavailab Mally Edward MD Unavailable [phone] Angelica Watson MD Unavailable [phone] Livier Ying RN Unavailable Unavailable Natalie Tian RN Unavailable UnavailLatha Box PAPER TWISTER-DISABILITY ADVOCATE Unavailable [phone] Kary Logan RN Unavailable Unavailab Lelo Greene PAPER TWISTER-PRODUCT SAFETY ADMINISTRATOR Unavailable [phone] Theodore Oswald PA-C Unavailable Unavail able Meghan Alexander SUPERVISOR BRIDGES AND BUILDINGS Unavailable Unavailab Leena Escobedo BATTER OUT Unavailable Unavailable Flaquita Manning PharmD Unavailable Unavaila Meghan EdwardsD Unavailable UnavailAleah Cormier PAPER TWISTER-PRODUCT SAFETY ADMINISTRATOR Unavailable [phone] Selma Garcia RN Unavailable Unavailable Rody King RN Unavailable UnavailAron Jolley RN Unavailable Unavailable Ligia Rivera MA Unavailable Unavailable Ani Lira Unavailable Unavailable Carolina Oglesby Unavailable Yana Lelo Lira MD Primary Care Provider [phone] Марина Lebron Unavailable Unavailable Tarsha Cha PAPER TWISTER-PRODUCT SAFETY ADMINISTRATOR Unavailable [phone] Socorro Galdamez PAPER TWISTER-PRODUCT SAFETY ADMINISTRATOR Unavailable [phone] Jennifer Fung MD Unavailable Encounter Details Date Type Department Care Team (Late st Contact Info) Description 05/03/2014 Lab Requisition [facility] - Lab Cytogenetics [address] [place] [address] Thanh Raymond MD [address] [place], [place] [id number] AML (acute myeloblastic leukemia) Social History Tobacco Use Types Packs/Day Years Used Date Smoking Tobacco: Never Assessed Comments Unknown Sex and Gender Information Value Date Recorded Sex Assigned at Not on file Legal Sex Female 2:19 PM LABORER PIPELINE Gender Identity Not on file Sexual Orientation Not on file documented as of this encounter Plan of Treatment Not on file documented as of this encounter Procedures Procedure Name Priority Date/Time Associated Diagnosis Comments CYTOGENETICS CANCER PANEL Routine 05/03/2014 2:28 PM LABORER PIPELINE AML (acute myeloblastic leukemia) [ICD-9-CM] documented in this encounter Results * CYTOGENETICS CANCER PANEL (05/03/2014 2:28 PM LABORER PIPELINE) Indication for Study AML/MRD 5 5:15 PM [facility] CYTOGENOMIC [facility] Results Cytogenetics Fluorescence In-Situ Hybridization (FISH): Analysis of 500 interphase cells hybridized with specific labeled fluorescent probes*: break apart MLL probes* directed onto 11q23 showed the following results: nuc aidan (MLLx2)[467/500] Normal 5 5:15 PM [facility] CYTOGENOMIC LAB Interpretation To rule out minimal residual disease of the previously identified clonal abnormality (see below;[id number]), FISH was performed using specific probes* as listed in the result section. FISH was negative indicating a possible disease remission. The previous study ([id number])showed a separation of the MLL signals in less than 1% of cells. Clinicopathological correlation is suggested. 5 5:15 PM [facility] CYTOGENOMIC LAB at 1715 LABORER PIPELINE Disclaimer *This test was developed, and its performance characteristics determined by [facility] Molecular Cytogenetics Laboratory as required [...] pathology with cytogenetic findings. 5 5:15 PM [facility] CYTOGENOMIC LAB Historical Cytogenomic Report [id number] on 04/20/2014 Results: Fluorescence In-Situ Hybridization (FISH): [...] onto 11q23 and 16q22, dual labeled probes* D5S23/U8O040 directed onto 5p15.2/5q31, dual labeled probes* CEP7/A0V629 directed onto 7 cent/7q31, dual labeled CEP8/L73A476 directed onto 8cent/20q11.2, and dual labeled dual fusion ETO/AML1 directed onto 8q22/21q22 showed the following results: nuc aidan (EVI1x2)[196/200],(D 5S23,C4L901,EGR1)x2[ 197/200],(D7Z1,D7S48 6)x2[195/200],(CEP8, I76L954)x2[187/200], (ETO,AML1)x2[190/200 ],(MLLx2)(5'MLL sep 3'MLLx21)[85/100],(F OXO1x2)[192/200],(CB FBx2)[190/200] Abnormal [...] on 04/07/2014 at 1306 5 5:15 PM LABORER PIPELINE [facility] CYTOGENOMIC LAB Client Information [facility] - [id number] 5 5:15 PM LABORER PIPELINE [facility] CYTOGENOMIC LAB Other BONE MARROW SPECIMEN / Unknown 05/03/2014 2:28 PM LABORER PIPELINE 05/03/2014 2:29 PM LABORER PIPELINE us Thanh Raymond MD LAB - PATHOLOGY/CYTOLOGY ORDERA BLES Final Result Performing Organization Address City/State/[facility] Co de Phone Number [facility] CYTOGENOMIC LAB [address] [place] [address] documented in this encounter Visit Diagnoses Diagnosis AML (acute myeloblastic leukemia) (HCC) Acute myeloid leukemia, without mention of having achieved remission documented in this encounter Additional Health Concerns Infection Onset Date Last Indicated Resolved Time COVID-19 Under Investigation 01/27/2022 01/27/2022 01/27/2022 9:08 PM CDT COVID-19 Under Investigation 01/28/2022 01/28/2022 01/28/2022 3:39 PM CDT documented as of this encounter Care Teams Last Repairer Helper Relationship Specialty Start Date End Date Unknown, Provider PCP - General 08/18/17 10/19/17 Lelo Lopez MD [address] [place] [address] PCP - General 10/20/17 Fawad Ruffin MD Hematology and Oncology 09/23/17 Kary Logan RN 09/23/17 09/24/17 Tyrell Diaz Update Information Referring Physician Oncology 09/25/17 Mally Rogers MD [address] [place] [address] Hematology and Oncology 09/25/17 Angelica Watson MD [address] [place] [address] Hematology and Oncology 09/25/17 Livier Ying, RN 09/25/17 11/22/20 Natalie Tian, RN Registered Nurse 09/25/17 Latha Ordoñez, PAPER TWISTER-DISABILITY ADVOCATE [address] [place] [address] [address] [place] [address] Oncology 09/25/17 Kary Logan RN 09/25/17 11/22/20 Lelo Becerra, PAPER TWISTER-PRODUCT SAFETY ADMINISTRATOR [address] [place] [address] [place] [address] Family Medicine 09/25/17 11/22/20 Theodore Oswald PA-C [address] [place] [address] [place] [address] Physician Registration Representative 09/25/17 0 Meghan Alexander, SUPERVISOR BRIDGES AND BUILDINGS Biomathematician 09/25/17 11/22/20 Leena Borden, BATTER OUT Biomathematician 09/25/17 Flaquita Manning, PharmD 09/25/17 Meghan Maya, PharmD 09/25/17 06/30/19 Aleah Giordano PAPER TWISTER-PRODUCT SAFETY ADMINISTRATOR Family Medicine 09/25/17 11/22/20 Selma Garcia, VALERIA 10/20/17 11/22/20 Rody King, VALERIA 10/20/17 11/22/20 Aron Powell, VALERIA 10/20/17 06/30/19 Ligia Rivera MA 10/20/17 06/30/19 Ani Lira 10/20/17 11/22/20 Carolina Oglesby 10/20/17 Марина Lebron Core Filer Psychiatry 10/20/17 08/10/18 Tarsha Cha APRN-PRODUCT SAFETY ADMINISTRATOR [address] OF HEMATOLOGY & [place] [address] Nurse Practitioner Family 10/04/20 Socorro Galdamez APRN-PRODUCT SAFETY ADMINISTRATOR [address] DIV OF HEMATOLOGY & [place] [address] Nurse Practitioner 10/04/20 Jennifer Fung MD [address] DIV OF HEMATOLOGY & [place] [address] Hematology and Oncology 11/23/21 documented as of this encounter
--- OUTSIDE RECORDS SUMMARY | 2024-11-30 00:27 | XMS_ITS | Encounter Summary ---
Author Organization [facility] Address [address] [facility] [place] [address] Care Team Providers Care Turn Down Attendant Name Role Phone Unknown, Provider Primary Care Provider Unavaila Fawad Tony MD Unavailable [phone] Kary Logan RN Unavailable Unavailab Tyrell Reed Unavailable Unavailab Mally Edward MD Unavailable [phone] Angelica Watson MD Unavailable [phone] Livier Ying RN Unavailable Unavailable Natalie Tian RN Unavailable UnavailLatha Box POST GRADUATE INTERNSHIP-SOFTWARE QUALITY ENGINEER Unavailable [phone] Kary Logan RN Unavailable Unavailab Lelo Greene POST GRADUATE INTERNSHIP-VENEREAL DISEASE INVESTIGATOR Unavailable [phone] Theodore Oswald PA-C Unavailable Unavail able Meghan Alexander MARINE FITTER Unavailable Unavailab Leena Escobedo MEDICAL INSURANCE CLAIMS SPECIALIST Unavailable Unavailable Flaquita Manning PharmD Unavailable Unavaila Meghan EdwardsD Unavailable UnavailAleah Cormier POST GRADUATE INTERNSHIP-VENEREAL DISEASE INVESTIGATOR Unavailable [phone] Selma Garcia RN Unavailable Unavailable Rody King RN Unavailable UnavailAron Jolley RN Unavailable Unavailable Ligia Rivera MA Unavailable Unavailable Ani Lira Unavailable Unavailable Carolina Oglesby Unavailable Yana Lelo Lira MD Primary Care Provider [phone] Марина Lebron Unavailable Unavailable Tarsha Cha POST GRADUATE INTERNSHIP-VENEREAL DISEASE INVESTIGATOR Unavailable [phone] GaldamezSocorro POST GRADUATE INTERNSHIP-VENEREAL DISEASE INVESTIGATOR Unavailable [phone] Jennifer Fung MD Unavailable Encounter Details Date Type Department Care Team (Late st Contact Info) Description 08/01/2014 Lab Requisition [facility] - Lab Cytogenetics [address] [place] [address] Fawad Ruffin MD [address] [place] [address] Rd [address] [place] [address] AML (acute myeloblastic leukemia) Social History Tobacco Use Types Packs/Day Years Used Date Smoking Tobacco: Never Assessed Comments Unknown Sex and Gender Information Value Date Recorded Sex Assigned at Not on file Legal Sex Female 2:19 PM CHILD PROTECTIVE SERVICES SPECIALIST Gender Identity Not on file Sexual [...] 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 5 11:58 AM T [facility] CYTOGENOMIC LAB at 1158 CDT Comment *This test was developed, and its performance characteristics determined by [facility] Molecular Cytogenetics Laboratory as required by [...] pathology with cytogenetic findings. 5 11:58 AM CDT [facility] CYTOGENOMIC [facility] Historical Cytogenomic Report on 07/11/2014 Results Analysis of 500 interphase [...] were found to be of donor origin. on 06/24/2014 Results: Analysis of 500 interphase [...] origin. Electronically signed by Megan Larkin, PhD [facility] on 06/27/2014 at [phone] on 05/03/2014 Results: Fluorescence In-Situ Hybridization (FISH): Analysis of 500 interphase cells hybridized with specific labeled fluorescent probes*: break apart MLL probes* directed onto 11q23 showed the following results: nuc aidan (MLLx2)[467/500] Normal Interpretation: To rule out minimal residual disease of the previously identified clonal abnormality (see below;[id number]), FISH was performed using specific probes* as listed in the result section. FISH was negative indicating a possible disease remission. The previous study ([id number])showed a separation of the MLL signals in less than 1% of cells. Clinicopathological correlation is suggested. at 1715 14-2100 on 04/20/2014 Results: Fluorescence In-Situ Hybridization (FISH): Analysis of 500 interphase cells hybridized with specific labeled fluorescent probes*: break apart MLL probes* directed onto 11q23 showed the following results: nuc aidan (MLLx2)(5'MLL sep 3'MLLx1)[4/500] Abnormal showing MLL abnormality in less than 1% of cells. Interpretation: To rule out a minimal residual disease of the previously identified clonal abnormality (see below; 2191), FISH was performed using specific probes* as [...] signals in 85% of cells. at 2006 142191 on 04/06/2014 Results: Fluorescence In-Situ Hybridization (FISH): [...] onto 11q23 and 16q22, dual labeled probes* D5S23/G9W754 directed onto 5p15.2/5q31, dual labeled probes* CEP7/T2D666 directed onto 7 cent/7q31, dual labeled CEP8/G22H907 directed onto 8cent/20q11.2, and dual labeled dual fusion ETO/AML1 directed onto 8q22/21q22 showed the following results: nuc aidan (EVI1x2)[196/200],(D 5S23,E3T755,EGR1)x2[ 197/200],(D7Z1,D7S48 6)x2[195/200],(CEP8, E10G607)x2[187/200], (ETO,AML1)x2[190/200 ],(MLLx2)(5'MLL sep 3'MLLx21)[85/100],(F OXO1x2)[192/200],(CB FBx2)[190/200] Abnormal [...] to determine the partner of 11q23 rearrangement. 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 [...] PhD AB on 04/07/2014 at 1306 5 11:58 AM CDT [facility] CYTOGENOMIC [facility] Client Information [facility] - [id number] [facility] Lab Number: [id number] chrom, [id number] FISH 5 11:58 AM CDT [facility] CYTOGENOMIC [facility] Other BONE MARROW SPECIMEN / Unknown 08/01/2014 08/01/2014 4:10 PM CDT us Fawad Ruffin MD LAB - PATHOLOGY/CYTOLOGY O RDERABLES Final Result [facility] CYTOGENOMIC [facility] [place] [address] documented in this encounter Visit Diagnoses Diagnosis AML (acute myeloblastic leukemia) (HCC) Acute myeloid leukemia, without mention of having achieved remission documented in this encounter Additional Health Concerns Infection Onset Date Last Indicated Resolved Time COVID-19 Under Investigation 01/27/2022 01/27/2022 01/27/2022 9:08 PM CDT COVID-19 Under Investigation 01/28/2022 01/28/2022 01/28/2022 3:39 PM CDT documented as of this encounter Care Teams Turn Down Attendant Relationship Specialty Start Date End Date Unknown, Provider PCP - General 08/18/17 10/19/17 Lelo Lopez MD [address] [place] [address] PCP - General 10/20/17 Fawad Ruffin MD Hematology and Oncology 09/23/17 Kary Logan, RN 09/23/17 09/24/17 Emily Tyrellalin Bonilla Update Information Referring Physician Oncology 09/25/17 Mally Rogers MD [facility] [place] [address] Hematology and Oncology 09/25/17 Angelica Watson MD [facility] [place] [address] Hematology and Oncology 09/25/17 Livier Ying, RN 09/25/17 11/22/20 Natalie Tian, RN Registered Nurse 09/25/17 Latha Ordoñez, POST GRADUATE INTERNSHIP-SOFTWARE QUALITY ENGINEER [address] [place], [place] [address]TA [facility] [address] [address] Oncology 09/25/17 Kary Logan, RN 09/25/17 11/22/20 Lelo Becerra, POST GRADUATE INTERNSHIP-VENEREAL DISEASE INVESTIGATOR [address] [address] [address] [address] Family Medicine 09/25/17 11/22/20 Theodore Oswald PA-C [address] [place] [address] [address] [address] Physician Hard Rock Miner Blasting 09/25/17 Meghan Jurado, MARINE FITTER Lawn Service Manager 09/25/17 11/22/20 Leena Borden, MEDICAL INSURANCE CLAIMS SPECIALIST Lawn Service Manager 09/25/17 Flaquita Manning, PharmD 09/25/17 Meghan Maya, PharmD 09/25/17 06/30/19 Aleah Giordano, POST GRADUATE INTERNSHIP-VENEREAL DISEASE INVESTIGATOR Family Medicine 09/25/17 11/22/20 Selma Garcia, VALERIA 10/20/17 11/22/20 Rody King, VALERIA 10/20/17 11/22/20 Aron Powell, VALERIA 10/20/17 06/30/19 Ligia Rivera MA 10/20/17 06/30/19 Ani Lira 10/20/17 11/22/20 Carolina Oglesby 10/20/17 Марина Lebron Internet Sales Consultant Psychiatry 10/20/17 08/10/18 Tarsha Cha APRN-VENEREAL DISEASE INVESTIGATOR [address] OF HEMATOLOGY & [place] [address] Nurse Practitioner Family 10/04/20 Socorro Galdamez APRN-CNP [address] DIV OF HEMATOLOGY & [place] [address] Nurse Practitioner 10/04/20 Jennifer Fung MD [address] OF HEMATOLOGY & [place] [address] Hematology and Oncology 11/23/21 documented as of this encounter
--- OUTSIDE RECORDS SUMMARY | 2024-11-30 00:27 | XMS_ITS | Encounter Summary ---
Author Organization [facility] Address [address] [facility] [place] [address] Care Team Providers Care Master Certified Rv Technician Name Role Phone Unknown, Provider Primary Care Provider Unavaila Fawad Tony MD Unavailable [phone] Kary Logan RN Unavailable Unavailab Tyrell Reed Unavailable Unavailab Mally Edward MD Unavailable [phone] Angelica Watson MD Unavailable [phone] Livier Ying RN Unavailable Unavailable Natalie Tian RN Unavailable UnavailLatha Box TYPEWRITER OPERATOR AUTOMATIC-ELEVATOR CONSTRUCTOR HYDRAULIC Unavailable [phone] Kary Logan RN Unavailable Unavailab Lelo Greene TYPEWRITER OPERATOR AUTOMATIC-CUSTOM LEATHER PRODUCTS MAKER Unavailable [phone] Theodore Oswald PA-C Unavailable Unavail able Meghan Alexander NETWORK FIELD ENGINEER Unavailable Unavailab Leena Escobedo REGULATORY COMPLIANCE OFFICER Unavailable Unavailable Flaquita Manning PharmD Unavailable Unavaila Meghan EdwardsD Unavailable UnavailAleah Cormier TYPEWRITER OPERATOR AUTOMATIC-CUSTOM LEATHER PRODUCTS MAKER Unavailable [phone] Selma Garcia RN Unavailable Unavailable Rody King RN Unavailable UnavailAron Jolley RN Unavailable Unavailable Ligia Rivera MA Unavailable Unavailable Ani Lira Unavailable Unavailable Carolina Oglesby Unavailable Yana Lelo Lira MD Primary Care Provider [phone] Марина Lebron Unavailable Unavailable Tarsha Cha TYPEWRITER OPERATOR AUTOMATIC-CUSTOM LEATHER PRODUCTS MAKER Unavailable [phone] GaldamezSocorro TYPEWRITER OPERATOR AUTOMATIC-CUSTOM LEATHER PRODUCTS MAKER Unavailable [phone] Jennifer Fung MD Unavailable Encounter Details Date Type Department Care Team (Late st Contact Info) Description 06/07/2015 Lab Requisition [facility] - Lab Cytogenetics [address] [place] [address] Mally Rogers MD [address] [facility] [place] [address] Social History Tobacco Use Types Packs/Day Years Used Date Smoking Tobacco: Never Assessed Comments Unknown Sex and Gender Information Value Date Recorded Sex Assigned at Not on file Legal Sex Female 2:19 PM CP BLEACHER OPERATOR Gender Identity Not on file Sexual Orientation Not on file documented as of this encounter Plan of Treatment Not on file documented as of this encounter Procedures Procedure Name Priority Date/Time Associated Diagnosis Comments CYTOGENETICS CANCER PANEL Routine 06/07/2015 12:00 AM CP BLEACHER OPERATOR documented in this encounter Results * CYTOGENETICS CANCER PANEL (06/07/2015 12:00 AM CP BLEACHER OPERATOR) Indication for Study History of AML / Post Transplant Male Donor 6 11:28 AM [facility] Results Cytogenetics Fluorescence In-Situ Hybridization (FISH): Analysis of 500 interphase cells from the bone marrow hybridized to dual labeled X and Y specific alpha satellite probes* showed the following results: nuc aidan(DXZ1x2)[1/500]// (DXZ1,DYZ3)x1[499/50 0] >99% donor 6 11:28 AM [facility] Interpretation Fluorescence in-situ [...] FISH analyses (see below). 6 11:28 AM [facility] at 1128 CP BLEACHER OPERATOR Disclaimer *This test was developed, and its performance characteristics determined by [facility] as required by CLIA '88 Regulations. It has not been cleared or approved for specific uses by the U.S. Food and Drug Administration. The FDA has determined that such clearance or approval is not necessary. This test is used for clinical purposes. It should not be reported as investigational or for research. 6 11:28 AM [facility] Historical Cytogenomic Report [id number] on 12/16/14 Results Fluorescence In-Situ Hybridization (FISH): Analysis of 500 interphase cells from the bone marrow hybridized to dual labeled X and Y specific alpha satellite probes* showed the following results: nuc aidan(DXZ1x2)[1/500]// (DXZ1,DYZ3)x1[497/50 0] 99% donor . Interpretation Fluorescence in-situ hybridization [...] same throughout several FISH analyses (see below). at 1056 . Disclaimer *This test was developed, and its performance characteristics determined by [facility] as required by [...] with cytogenetic findings. . Historical Cytogenomic Report Historical Cytogenomic Report [id number] on 10/13/2014: Results Analysis of 500 interphase cells from the bone marrow hybridized to dual labeled X and Y specific alpha satellite probes* showed the following results: nuc aidan(DXZ1x2)[3500]// (DXZ1,DYZ3)x1[497/50 0] 99% donor [id number] on 09/19/2014: Results Analysis of 500 interphase cells from the bone marrow hybridized to dual labeled X and Y specific alpha satellite probes* showed the following results: nuc aidan //(DXZ1,DYZ3)x1[498/ 500] 99% donor --------- [id number] on 09/15/2014 Results: Analysis of 500 interphase cells from the bone marrow hybridized to dual labeled X and Y specific alpha satellite probes* showed the following results: nuc aidan //(DXZ1,DYZ3)x1[497/ 500] 99% donor [id number] on 08/02/2014 Results: Analysis of 500 interphase cells from the bone marrow hybridized to dual labeled X and Y specific alpha satellite probes* showed the following results: nuc aidan //(DXZ1,DYZ3)x1[499/ 500] 99% donor [id number] on 07/13/2014 Results: Analysis of 500 interphase cells from the peripheral oncology blood hybridized to dual labeled X and Y specific alpha satellite probes* showed the following results: nuc aidan(DXZ1x2)[2/500]// (DXZ1,DYZ3)x1[495/50 0] 99% donor [id number] on 06/27/2014 Results: Analysis of 500 interphase cells from the peripheral oncology blood hybridized to dual labeled X and Y specific alpha satellite probes* showed the following results: nuc aidan(DXZ1x2)[5/500]// (DXZ1,DYZ3)x1[493/50 0] 98% donor [id number] on 05/09/2014 Results: Fluorescence In-Situ Hybridization (FISH): Analysis of 500 interphase cells hybridized with specific labeled fluorescent probes*: break apart MLL probes* directed onto 11q23 showed the following results: nuc aidan (MLLx2)[467/500] Normal Interpretation: To rule out minimal residual disease of the previously identified clonal abnormality (see below;[id number]), FISH was performed using specific probes* as listed in the result section. FISH was negative indicating a possible disease remission. The previous study ([id number])showed a separation of the MLL signals in less than 1% of cells. Clinicopathological correlation is suggested. Last verified: 05/09/2014 1715 by Vivian Ho, PhD [facility] [id number] on 04/20/2014 Results: Fluorescence In-Situ Hybridization (FISH): [...] cells. Electronically signed by Vivian Ho, PhD [facility] on 04/25/2014 at 2005 on 04/06/2014 Results: [...] onto 11q23 and 16q22, dual labeled probes* D5S23/Y5G552 directed onto 5p15.2/5q31, dual labeled probes* [id number] directed onto 7 cent/7q31, dual labeled [id number]/[id number] directed onto 8cent/20q11.2, and dual labeled dual fusion ETO/AML1 directed onto 8q22/21q22 showed the following results: nuc aidan (EVI1x2)[196/200],(D 5S23,F9G223,EGR1)x2[ 197/200],(D7Z1,D7S48 6)x2[195/200],(CEP8, Y43Q196)x2[187/200], (ETO,AML1)x2[190/200 ],(MLLx2)(5'MLL sep 3'MLLx21)[85/100],(F OXO1x2)[192/200],(CB FBx2)[190/200] Abnormal [...] on 04/07/2014 at 1306 6 11:28 AM CP BLEACHER OPERATOR [facility] Client Information [facility] - [id number] [facility] Lab Numbers: [id number] chrom, [id number] FISH 6 11:28 AM CP BLEACHER OPERATOR [facility] Other BONE MARROW SPECIMEN / Unknown 06/07/2015 06/07/2015 4:34 PM CP BLEACHER OPERATOR Mally Rogers MD LAB - PATHOLOGY/CYTOLOGY ORDERA BLES Final Result Performing Organization Address City/State/[facility] Co de Phone Number [facility] [address] [place] [address] documented in this encounter Visit Diagnoses Not on filedocumented in this encounter Additional Health Concerns Infection Onset Date Last Indicated Resolved Time COVID-19 Under Investigation 01/27/2022 01/27/2022 01/27/2022 9:08 PM CDT COVID-19 Under Investigation 01/28/2022 01/28/2022 01/28/2022 3:39 PM CDT documented as of this encounter Care Teams Master Certified Rv Technician Relationship Specialty Start Date End Date Unknown, Provider PCP - General 08/18/17 10/19/17 Lelo Lopez MD [address] [place] [address] PCP - General 10/20/17 Fawad Ruffin MD Hematology and Oncology 09/23/17 Kary Logan RN 09/23/17 09/24/17 Tyrell Diaz Update Information Referring Physician Oncology 09/25/17 Mally Rogers MD [address] [place] [address] Hematology and Oncology 09/25/17 Angelica Watson MD [address] [place] [address] Hematology and Oncology 09/25/17 Livier Ying, RN 09/25/17 11/22/20 Natalie Tian, RN Registered Nurse 09/25/17 Latha Ordoñez, TYPEWRITER OPERATOR AUTOMATIC-ELEVATOR CONSTRUCTOR HYDRAULIC [address] [place] [address] [address]nd [place] [address] Oncology 09/25/17 Kary Logan RN 09/25/17 11/22/20 Lelo Becerra APRN-CUSTOM LEATHER PRODUCTS MAKER [address] [place] [address] [place] [address] Family Medicine 09/25/17 11/22/20 Theodore Oswald PA-C [address] [place] [address] [place] [address] Physician Clamshell Operator 09/25/17 0 Meghan Alexander, NETWORK FIELD ENGINEER Cupola Melter 09/25/17 11/22/20 Leena Borden, REGULATORY COMPLIANCE OFFICER Cupola Melter 09/25/17 Flaquita Manning, PharmD 09/25/17 Meghan Maya, PharmD 09/25/17 06/30/19 Aleah Giordano APRN-CUSTOM LEATHER PRODUCTS MAKER Family Medicine 09/25/17 11/22/20 Selma Garcia, VALERIA 10/20/17 11/22/20 Rody King, VALERIA 10/20/17 11/22/20 Aron Powell, VALERIA 10/20/17 06/30/19 Ligia Rivera MA 10/20/17 06/30/19 Ani Lira 10/20/17 11/22/20 Carolina Oglesby 10/20/17 Марина Lebron Center Machine Set Up Operator Psychiatry 10/20/17 08/10/18 Tarsha Cha APRN-CUSTOM LEATHER PRODUCTS MAKER [address] [facility] [place] [address] Nurse Practitioner Family 10/04/20 Socorro Galdamez APRN-CUSTOM LEATHER PRODUCTS MAKER [address] [facility]OLOGY [facility] [place] [address] Nurse Practitioner 10/04/20 Jennifer Fung MD [address] [facility]Y [facility] [place] [address] Hematology and Oncology 11/23/21 documented as of this encounter
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
--- OUTSIDE RECORDS SUMMARY | 2024-11-30 00:27 | XMS_ITS | Encounter Summary ---
Author Organization [facility] Address [address] [facility] [place] [address] Care Team Providers Care Web Design Specialist Name Role Phone Unknown, Provider Primary Care Provider Unavaila Fawad Tony MD Unavailable [phone] Kary Logan RN Unavailable Unavailab Tyrell Reed Unavailable Unavailab Mally Edward MD Unavailable [phone] Angelica Watson MD Unavailable [phone] Livier Ying RN Unavailable Unavailable Natalie Tian RN Unavailable UnavailLatha Box SWEEP PRESS OPERATOR-MANAGER WINTER Unavailable [phone] Kary Logan RN Unavailable Unavailab Lelo Greene SWEEP PRESS OPERATOR-NURSE EXECUTIVE Unavailable [phone] Theodore Oswald PA-C Unavailable Unavail able Meghan Alexander SOCIAL SCIENCE INSTRUCTOR Unavailable Unavailab Leena Escobedo UPPER AND BOTTOM LACER HAND Unavailable Unavailable Flaquita Manning PharmD Unavailable Unavaila Meghan EdwardsD Unavailable UnavailAleah Cormier SWEEP PRESS OPERATOR-NURSE EXECUTIVE Unavailable [phone] Selma Garcia RN Unavailable Unavailable Rody King RN Unavailable UnavailAron Jolley RN Unavailable Unavailable Ligia Rivera MA Unavailable Unavailable Ani Lira Unavailable Unavailable Carolina Oglesby Unavailable Yana Lelo Lira MD Primary Care Provider [phone] Марина Lebron Unavailable Unavailable Tarsha Cha SWEEP PRESS OPERATOR-NURSE EXECUTIVE Unavailable [phone] Socorro Galdamez SWEEP PRESS OPERATOR-NURSE EXECUTIVE Unavailable [phone] Jennifer Fung MD Unavailable Reason for Visit * Reason Onset Date Comments Scheduling 11/19/2016 left VM Encounter Details Date Type Department Care Team (Late st Contact Info) Description 11/19/2016 Telephone [facility]UATION UNIT [address] 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 Gender Identity Not on file Sexual Orientation [...] documented as of this encounter Care Teams Web Design Specialist Relationship Specialty Start Date End Date Unknown, Provider PCP - General 08/18/17 10/19/17 Lelo Lopez MD [address] [place] [address] PCP - General 10/20/17 Fawad Ruffin MD Hematology and Oncology 09/23/17 Kary Logan RN 09/23/17 09/24/17 Tyrell Diaz Update Information Referring Physician Oncology 09/25/17 Mally Rogers MD [facility] [place] [address] Hematology and Oncology 09/25/17 Angelica Watson MD [address] [place] [address] Hematology and Oncology 09/25/17 Livier Ying, RN 09/25/17 11/22/20 Natalie Tian, RN Registered Nurse 09/25/17 Latha Ordoñez, SWEEP PRESS OPERATOR-MANAGER WINTER [address] [place] [address] FLOOR BMT [place] [id number] Oncology 09/25/17 Kary Logan RN 09/25/17 11/22/20 Lelo Becerra, SWEEP PRESS OPERATOR-NURSE EXECUTIVE [address] [place] [address] [place] [address] Family Medicine 09/25/17 11/22/20 Theodore Oswald PA-C [address] [place] [address] [place] [address] Physician Airline Operations Agent 09/25/17 0 Meghan Alexander, SOCIAL SCIENCE INSTRUCTOR Squeegee Tender 09/25/17 11/22/20 Leena Borden, UPPER AND BOTTOM LACER HAND Squeegee Tender 09/25/17 Flaquita Manning, PharmD 09/25/17 Meghan Maya, PharmD 09/25/17 06/30/19 Aleah Giordano SWEEP PRESS OPERATOR-NURSE EXECUTIVE Family Medicine 09/25/17 11/22/20 Selma Garcia, VALERIA 10/20/17 11/22/20 Rody King, VALERIA 10/20/17 11/22/20 Aron Powell, VALERIA 10/20/17 06/30/19 Ligia Rivera MA 10/20/17 06/30/19 Ani Lira 10/20/17 11/22/20 Carolina Oglesby 10/20/17 Марина Lebron Husbandry Technician Psychiatry 10/20/17 08/10/18 Tarsha Cha APRN-NURSE EXECUTIVE [address] [facility] OF HEMATOLOGY & [place] [address] Nurse Practitioner Family 10/04/20 Socorro Galdamez APRN-NURSE EXECUTIVE [address] [facility] OF HEMATOLOGY [facility] MEDICAL ONCOLOGY [place], [place] [id number] Nurse Practitioner 10/04/20 Jennifer Fung MD [address] [facility] OF HEMATOLOGY [facility] [place] [address] Hematology and Oncology 11/23/21 documented as of this encounter
--- OUTSIDE RECORDS SUMMARY | 2024-11-30 00:27 | XMS_ITS | Encounter Summary ---
Author Organization [facility] Address [address] [place] [address] Care Team Providers Care Geochemistry Teacher Name Role Phone Unknown, Provider Primary Care Provider Unavaila Fawad Tony MD Unavailable [phone] Kary Logan RN Unavailable Unavailab Tyrell Reed Unavailable Unavailab Mally Edward MD Unavailable [phone] Angelica Watson MD Unavailable [phone] Livier Ying RN Unavailable Unavailable Natalie Tian RN Unavailable UnavailLatha Box METAL SLITTER-RETAIL COSMETICS SALES COUNTER MANAGER Unavailable [phone] Kary Logan RN Unavailable Unavailab Lelo Greene METAL SLITTER-WELDING MACHINE ASSEMBLER Unavailable [phone] Theodore Oswald PA-C Unavailable Unavail able Meghan Alexander AGRIBUSINESS INTERNSHIP Unavailable Unavailab Leena Escobedo DOG BEAUTICIAN Unavailable Unavailable Flaquita Manning PharmD Unavailable Unavaila Meghan EdwardsD Unavailable UnavailAleah Cormier METAL SLITTER-WELDING MACHINE ASSEMBLER Unavailable [phone] Selma Garcia RN Unavailable Unavailable Rody King RN Unavailable UnavailAron Jolley RN Unavailable Unavailable Ligia Rivera MA Unavailable Unavailable Ani Lira Unavailable Unavailable Carolina Oglesby Unavailable Yana Lelo Lira MD Primary Care Provider [phone] BernardinoМарина Unavailable Unavailable Tarsha Cha METAL SLITTER-WELDING MACHINE ASSEMBLER Unavailable [phone] GaldamezSocorro METAL SLITTER-WELDING MACHINE ASSEMBLER Unavailable [phone] Jennifer Fung MD Unavailable Encounter Details Date Type Department Care Team (Late st Contact Info) Description 12/14/2014 Lab Requisition [facility] - Lab Cytogenetics [address] [place] [address] Fawad Ruffin MD [address] [place] [address] Rd [address] [place] [address] AML (acute myeloblastic leukemia) Social History Tobacco Use Types Packs/Day Years Used Date Smoking Tobacco: Never Assessed Comments Unknown Sex and Gender Information Value Date Recorded Sex Assigned at Not on file Legal Sex Female 2:19 PM 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 5 10:56 AM CDT [facility] at 1056 CDT Disclaimer *This test was developed, and its performance characteristics determined by [facility] Cytogenetics Laboratory as required [...] with cytogenetic findings. 5 10:56 AM CDT [facility] Historical Cytogenomic Report Historical Cytogenomic Report [id number] on 10/13/2014: Results Analysis of 500 interphase cells from the bone marrow hybridized to dual labeled X and Y specific alpha satellite probes* showed the following results: nuc aidan(DXZ1x2)[3500]// (DXZ1,DYZ3)x1[497/50 0] 99% donor [id number] on 09/19/2014: Results Analysis of 500 interphase cells from the bone marrow hybridized to dual labeled X and Y specific alpha satellite probes* showed the following results: nuc aidan //(DXZ1,DYZ3)x1[498/ 500] 99% donor --------- [id number] on 09/15/2014 Results: Analysis of 500 interphase cells from the bone marrow hybridized to dual labeled X and Y specific alpha satellite probes* showed the following results: nuc aidan //(DXZ1,DYZ3)x1[497/ 500] 99% donor [id number] on 08/02/2014 Results: Analysis of 500 interphase cells from the bone marrow hybridized to dual labeled X and Y specific alpha satellite probes* showed the following results: nuc aidan //(DXZ1,DYZ3)x1[499/ 500] 99% donor [id number] on 07/13/2014 Results: Analysis of 500 interphase cells from the peripheral oncology blood hybridized to dual labeled X and Y specific alpha satellite probes* showed the following results: nuc aidan(DXZ1x2)[2500]// (DXZ1,DYZ3)x1[495/50 0] 99% donor [id number] on 06/27/2014 Results: Analysis of 500 interphase cells from the peripheral oncology blood hybridized to dual labeled X and Y specific alpha satellite probes* showed the following results: nuc aidan(DXZ1x2)[5/500]// (DXZ1,DYZ3)x1[493/50 0] 98% donor [id number] on 05/09/2014 Results: Fluorescence In-Situ Hybridization (FISH): Analysis of 500 interphase cells hybridized with specific labeled fluorescent probes*: break apart MLL probes* directed onto 11q23 showed the following results: nuc aidan (MLLx2)[467/500] Normal Interpretation: To rule out minimal residual disease of the previously identified clonal abnormality (see below;[id number]), FISH was performed using specific probes* as listed in the result section. FISH was negative indicating a possible disease remission. The previous study ([id number])showed a separation of the MLL signals in less than 1% of cells. Clinicopathological correlation is suggested. Last verified: 05/09/2014 1715 by Vivian Ho, PhD [facility] on 04/20/2014 Results: Fluorescence In-Situ Hybridization (FISH): [...] signals in 85% of cells. at 2005 14 on 04/06/2014 Results: Fluorescence In-Situ Hybridization [...] onto 11q23 and 16q22, dual labeled probes* D5S23/A8Z411 directed onto 5p15.2/5q31, dual labeled probes* CEP7/B3X641 directed onto 7 cent/7q31, dual labeled CEP8/R80R783 directed onto 8cent/20q11.2, and dual labeled dual fusion ETO/AML1 directed onto 8q22/21q22 showed the following results: nuc aidan (EVI1x2)[196/200],(D 5S23,O0F296,EGR1)x2[ 197/200],(D7Z1,D7S48 6)x2[195/200],(CEP8, F33E102)x2[187/200], (ETO,AML1)x2[190/200 ],(MLLx2)(5'MLL sep 3'MLLx21)[85/100],(F OXO1x2)[192/200],(CB FBx2)[190/200] Abnormal [...] 1401 Preliminary result electronically signed by Megan Lrakin, PhD ABMG on 04/08/2014 at 1533 Preliminary result electronically signed by Megan Larkin, PhD AB on 04/07/2014 at 1306 5 10:56 AM CDT [facility] Client Information [facility] - [id number] [facility] Lab Number: [id number] Chroms; [id number] FISH 5 10:56 AM CDT [facility] Other BONE MARROW SPECIMEN / Unknown 12/14/2014 1:45 PM CDT 12/14/2014 3:02 PM CDT us Fawad Ruffin MD LAB - PATHOLOGY/CYTOLOGY O RDERABLES Final Result [facility] [address] [place] [address] documented in this encounter Visit Diagnoses Diagnosis AML (acute myeloblastic leukemia) (HCC) Acute myeloid leukemia, without mention of having achieved remission documented in this encounter Additional Health Concerns Infection Onset Date Last Indicated Resolved Time COVID-19 Under Investigation 01/27/2022 01/27/2022 01/27/2022 9:08 PM CDT COVID-19 Under Investigation 01/28/2022 01/28/2022 01/28/2022 3:39 PM CDT documented as of this encounter Care Teams Geochemistry Teacher Relationship Specialty Start Date End Date Unknown, Provider PCP - General 08/18/17 10/19/17 Lelo Lopez MD [address] [place], [place] [id number] PCP - General 10/20/17 Fawad Ruffin MD Hematology and Oncology 09/23/17 Kary Logan RN 09/23/17 09/24/17 Tyrell Diaz Update Information Referring Physician Oncology 09/25/17 Mally Rogers MD [address] [place] [address] Hematology and Oncology 09/25/17 Angelica Watson MD [address] [place] [address] Hematology and Oncology 09/25/17 Livier Ying, RN 09/25/17 11/22/20 Natalie Tian, RN Registered Nurse 09/25/17 Latha Ordoñez APRN-RETAIL COSMETICS SALES COUNTER MANAGER [address] [place] [address] 2nd FLOOR [facility] [place] [address] Oncology 09/25/17 Kary Logan RN 09/25/17 11/22/20 Lelo Becerra APRN-WELDING MACHINE ASSEMBLER [address] [facility] 2nd [place] [address] [facility] Medicine 09/25/17 11/22/20 Theodore Oswald PA-C [address] [facility] 2nd [place] [address] Physician Oil Well Drilling Manager 09/25/17 Meghan Jurado, [facility] Oyster Opener 09/25/17 11/22/20 Leena Borden [facility] Oyster Opener 09/25/17 Flaquita Manning, PharmD 09/25/17 Meghan Maya, PharmD 09/25/17 06/30/19 Aleah Giordano, METAL SLITTER-[facility] Medicine 09/25/17 11/22/20 Selma Garcia, RN 10/20/17 11/22/20 Rody King, VALERIA 10/20/17 11/22/20 Aron Powell, VALERIA 10/20/17 06/30/19 Ligia Rivera MA 10/20/17 06/30/19 Ani Lira 10/20/17 11/22/20 Carolina Oglesby 10/20/17 Марина Lebron Astro Technician Psychiatry 10/20/17 08/10/18 Tarsha Cha METAL SLITTER-[facility] [address] DIV OF HEMATOLOGY & [place] [address] Nurse Practitioner Family 10/04/20 Socorro Galdamez METAL SLITTER-WELDING MACHINE ASSEMBLER [address] DIV OF HEMATOLOGY & [place] [address] Nurse Practitioner 10/04/20 Jennifer Fung MD [address] DIV OF HEMATOLOGY & [place] [address] Hematology and Oncology 11/23/21 documented as of this encounter
--- OUTSIDE RECORDS SUMMARY | 2024-11-30 00:27 | XMS_ITS | Encounter Summary ---
Author Organization [facility] Address [address] [place] [address] Care Team Providers Care Animal Treatment Investigator Name Role Phone Unknown, Provider Primary Care Provider Unavaila Fawad Tony MD Unavailable [phone] Kary Logan RN Unavailable Unavailab Tyrell Reed Unavailable Unavailab Mally Edward MD Unavailable [phone] Angelica Watson MD Unavailable [phone] Livier Ying RN Unavailable Unavailable Natalie Tian RN Unavailable UnavailLatha Box LINEN MANAGER-ANALYTICAL DATA MINER Unavailable [phone] Kary Logan RN Unavailable Unavailab Lelo Greene LINEN MANAGER-AUTOMATIC SCREWMAKER Unavailable Theodore Oswald PA-C Unavailable Unavail able Meghan Alxeander TUBE FORMER OPERATOR Unavailable Unavailab Leena Escobedo REGULATORY AFFAIRS DIRECTOR Unavailable Unavailable Flaquita Manning PharmD Unavailable Unavaila Meghan EdwardsD Unavailable UnavailAleah Cormier LINEN MANAGER-AUTOMATIC SCREWMAKER Unavailable [phone] Selma Garcia RN Unavailable Unavailable Rody King RN Unavailable UnavailAron Jolley RN Unavailable Unavailable Ligia Rivera MA Unavailable Unavailable Ani Lira Unavailable Unavailable Carolina Oglesby Unavailable Yana Lelo Lira MD Primary Care Provider [phone] BernardinoМарина Unavailable Unavailable SemajTarsha betancur LINEN MANAGER-AUTOMATIC SCREWMAKER Unavailable [phone] DeniceSocorro LINEN MANAGER-AUTOMATIC SCREWMAKER Unavailable [phone] Jennifer Fung MD Unavailable Encounter Details Date Type Department Care Team (Late st Contact Info) Description 10/12/2014 Lab Requisition [facility] - Lab Cytogenetics [address] [place] [address] Mally Rogers MD [address] 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 5 2:28 PM T [facility] at 1428 CDT Disclaimer *This test was developed, and its performance characteristics determined by [facility] Molecular Cytogenetics Laboratory as required by CLIA '88 Regulations. It has not been cleared or approved for specific uses by the U.S. Food and Drug Administration. The FDA has determined that such clearance or approval is not necessary. This test is used for clinical purposes. It should not be reported as investigational or for research. 5 2:28 PM CDT [facility] Historical Cytogenomic Report [id number] on 09/19/2014: Results Analysis of 500 interphase [...] developed, and its performance characteristics determined by [facility] Cytogenetics Laboratory as required by [...] with cytogenetic findings. . Historical Cytogenomic Report [id number] on 09/15/2014 Results: Analysis of 500 interphase [...] verified: 09/15/2014 1742 by Vivian Ho, PhD [facility] [id number] on 08/02/2014 Results: Analysis of 500 interphase [...] verified: 08/02/2014 1158 by Megan Larkin, PhD [facility] [id number] on 07/13/2014 Results: Analysis of 500 interphase [...] verified: 07/13/2014 1330 by Megan Larkin, PhD [facility] [id number] on 06/27/2014 Results: Analysis of 500 interphase [...] verified: 06/27/2014 1348 by Megan Larkin, PhD [facility] [id number] on 05/09/2014 Results: Fluorescence In-Situ Hybridization (FISH): Analysis of 500 interphase cells hybridized with specific labeled fluorescent probes*: break apart MLL probes* directed onto 11q23 showed the following results: nuc aidan (MLLx2)[467/500] Normal Interpretation: To rule out minimal residual disease of the previously identified clonal abnormality (see below;[id number]), FISH was performed using specific probes* as listed in the result section. FISH was negative indicating a possible disease remission. The previous study ([id number])showed a separation of the MLL signals in less than 1% of cells. Clinicopathological correlation is suggested. Last verified: 05/09/2014 1715 by Vivina Ho, PhD [facility] on 04/20/2014 Results: Fluorescence In-Situ Hybridization [...] probes BCR/ABL1 probes* directed onto 22q11.2/9q34 and PML/CMA directed onto 15q24/17q21 specific fluorescent labeled probes* showed the following results: nuc aidan(ABL1,BCR)x2[185/ 200],(PML,CAM)x2[18 7/200] Normal Fluorescence In-Situ Hybridization (FISH): Analysis of 100 to 200 interphase cells hybridized with specific labeled fluorescent probes*: break apart MLL and CBFB probes* directed onto 11q23 and 16q22, dual labeled probes* D5S23/Z6H550 directed onto 5p15.2/5q31, dual labeled probes* CEP7/M1T993 directed onto 7 cent/7q31, dual labeled CEP8/I09L016 directed onto 8cent/20q11.2, and dual labeled dual fusion ETO/AML1 directed onto 8q22/21q22 showed the following results: nuc aidan (EVI1x2)[196/200],(D 5S23,F9S775,EGR1)x2[ 197/200],(D7Z1,D7S48 6)x2[195/200],(CEP8, Y86M396)x2[187/200], (ETO,AML1)x2[190/200 ],(MLLx2)(5'MLL sep 3'MLLx21)[85/100],(F OXO1x2)[192/200],(CB FBx2)[190/200] Abnormal [...] Larkin, PhD ABMG on 04/07/2014 at 1306 . Client Information [facility] - [id number] [facility] Lab Numbers: [id number] FISH 5 2:28 PM CDT [facility] Client Information [facility] - [id number] Lab# [id number]; [id number] Chroms 5 2:28 PM CDT [facility] Other BONE MARROW SPECIMEN / Unknown 10/12/2014 10/12/2014 2:42 PM CDT us Mally Rogers MD LAB - PATHOLOGY/CYTOLOGY ORDERA BLES Final Result [facility] [address] [place] [address] documented in this encounter Visit Diagnoses Diagnosis AML (acute myeloblastic leukemia) (HCC) Acute myeloid leukemia, without mention of having achieved remission documented in this encounter Additional Health Concerns Infection Onset Date Last Indicated Resolved Time COVID-19 Under Investigation 01/27/2022 01/27/2022 01/27/2022 9:08 PM CDT COVID-19 Under Investigation 01/28/2022 01/28/2022 01/28/2022 3:39 PM CDT documented as of this encounter Care Teams Animal Treatment Investigator Relationship Specialty Start Date End Date Unknown, Provider PCP - General 08/18/17 10/19/17 Lelo Lopez MD [address] [place] [address] PCP - General 10/20/17 Fawad Ruffin MD Hematology and Oncology 09/23/17 Kary Logan, RN 09/23/17 09/24/17 Tyrell Diaz Update Information Referring Physician Oncology 09/25/17 Mally Rogers MD [address] [place] [address] Hematology and Oncology 09/25/17 Angelica Watson MD [address] [place] [address] Hematology and Oncology 09/25/17 Livier Ying, RN 09/25/17 11/22/20 Natalie Tian, RN Registered Nurse 09/25/17 Latha Ordoñez, LINEN MANAGER-ANALYTICAL DATA MINER [address] [facility] 2nd [place] [address] Oncology 09/25/17 Kary Logan, RN 09/25/17 11/22/20 Lelo Becerra, JOSÉ MIGUEL-AUTOMATIC SCREWMAKER [address] [address] Family Medicine 09/25/17 11/22/20 Theodore Oswald PA-C [address]nd [place] [address] Physician Continuous Washer Operator 09/25/17 0 Meghan Alexander, TUBE FORMER OPERATOR Dyer Helper 09/25/17 11/22/20 Leena Borden, REGULATORY AFFAIRS DIRECTOR Dyer Helper 09/25/17 Flaquita Manning, PharmD 09/25/17 Meghan Maya, PharmD 09/25/17 06/30/19 Aleah Giordano, LINEN MANAGER-AUTOMATIC SCREWMAKER Family Medicine 09/25/17 11/22/20 Selma Garcia, RN 10/20/17 11/22/20 Rody King, RN 10/20/17 11/22/20 Aron Powell, VALERIA 10/20/17 06/30/19 Ligia Rivera MA 10/20/17 06/30/19 Ani Lira 10/20/17 11/22/20 Carolina Oglesby 10/20/17 Марина Lebron Treasury Specialist Psychiatry 10/20/17 08/10/18 Tarsha Cha, LINEN MANAGER-AUTOMATIC SCREWMAKER [address] OF HEMATOLOGY & [place] [address] Nurse Practitioner Family 10/04/20 Socorro Galdamez, LINEN MANAGER-AUTOMATIC SCREWMAKER [address] DIV OF HEMATOLOGY & [place] [address] Nurse Practitioner 10/04/20 Jennifer Fung MD [address] OF HEMATOLOGY & [place] [address] Hematology and Oncology 11/23/21 documented as of this encounter
--- OUTSIDE RECORDS SUMMARY | 2024-11-30 00:27 | XMS_ITS | Data Portability ---
Author Organization [facility], P.CJeannette, [place] Address [address] [place] [address] Care Team Providers Care Brim Stiffener Name Role Phone [facility] Referring Provider Assessment No assessment recorded. Plan of Treatment Reminders Order Date Submit Date Provider Last Modified By Organization Details Last Modified Time Details Appointments None recorded. Lab None recorded. Referral None recorded. Procedures None recorded. Surgeries None recorded. Imaging None recorded. Medication Orders Diflucan 150 mg tablet 2021 022 [facility] #[id number], [address], [id number], 2 10:08:29 nystatin-t riamcinolo ne 100,000 unit/gram- 0.1 % topical ointment 2019 020 [facility] #[id number], [address], [id number], 1 14:20:43 Diflucan 150 mg tablet 2019 020 [facility] #[id number], [address], [id number], 1 14:22:40 Patient TargetsNo targets recorded. Patient InstructionsNo instructions recorded. Reason for Referral None Reported. Results Created Date Observation Date Name Description Value Unit Range Abnormal Flag Note LastModifiedBy Organization Detail LastModifiedTime 02/15/2002/16/2020 bacte rial vagin osis + vagin itis panel , vagin al nanda sp. Not Detect ed normal Trich omona s vagin russ: DNA testi ng perfo rmed by Trans [employer] bowen Ampli ficat ion (TMA) These resul ts shoul d be inter prete d in light of all clini marlys and labor atory findi ngs. This assay is highl y accur ate, but rare false posit mi and negat mi resul ts may occur . Posit mi resul ts in low preva lence popul ation s may requi re re-ev aluat ion. A negat mi resul t does not precl ude a possi ble infec tion due to a speci men inade quacy or sampl ing error . Test perfo rmed by [facility], d/b/a [facility], [address], [place] [address] , Sheila Schroeder ra, DO, Labor atory Direc tor. Huin alysha a vagin russ, Aidee da speci es: Genom ic DNA is isola bwoen from patie nt speci mens by stand grant labor atory techn iques and jax zed using custo m OpenA rray plate s, perfo rmed on the Quant Studi o 12K Flex Real Time PCR syste m. A posit mi resul t is provi ded for patho genic bacte dali, virus and/o r funga l speci es based on detec tion of ampli ficat ion produ cts. Teresa l vagin al savannah resul ts of Teresa l or Copake bowen are deter mined by calcu latin g the ratio of the organ ism to the total bacte dali prese nt in the speci men, and kwasi ring that ratio to a PathG roup patie nt popul ation . Overa ll resul ts of Teersa l, Borde rline and Abnor mal are deter mined using a proba bilit y model which was devel oped by an exten sive jax sis and integ ratio n of clini marlys thres holds for marke r organ isms on a large set of sympt omati c & asymp tomat ic speci mens. Patie nt popul ation s with diffe rent demog raphi cs from the Path [facility] [employer] model popul ation may have diffe rent indic ator organ isms with diffe rent relat mi ratio s, which would influ ence the final resul ts. Resul ts shoul d be inter prete d in the prudencio xt of all clini marlys and labor atory findi ngs. The test was devel oped and its perfo rmanc e yasir cteri stics deter mined by [employer] [facility] logis [employer], [employer] d/b/a [facility] [employer]. It has not been clear ed or appro chuy by the U.S. Food and Drug Admin istra tion. The FDA has deter mined that such clear ance or appro rufino is not neces kody. Perti nent refer ence inter vals are avail able [facility]. Test( s) perfo rmed by Ass[employer]po logis [employer], [employer], d/b/a [facility] [employer], [address], [place] [address] , Sheila Schroeder ra, DO, Labor atory Direc tor. Not Available [facility] ([facility]) [address], [place], [address], 02/17/2020 05:30:25 02/15/20 20 02/16/2020 bacte rial vagin osis + vagin itis panel , vagin al gardnerella vaginalis Detect ed abnormal Trich omona s vagin russ: DNA testi ng perfo rmed by Trans cript ion Media bowen Ampli ficat ion (TMA) These resul ts shoul d be inter prete d in light of all clini marlys and labor atory findi ngs. This assay is highl y accur ate, but rare false posit mi and negat mi resul ts may occur . Posit mi resul ts in low preva lence popul ation s may requi re re-ev aluat ion. A negat mi resul t does not precl ude a possi ble infec tion due to a speci men inade quacy or sampl ing error . Test perfo rmed by [facility], [employer], d/b/a [facility]oup, [address], [facility] [place] [address] , Sheila Schroeder ra, DO, Labor atory Direc tor. Gardn erell a vagin russ, Aidee da speci es: Genom ic DNA is isola bowen from patie nt speci mens by stand grant labor atory techn iques and jax zed using custo m OpenA rray plate s, perfo rmed on the ICAgen Studi o 12K Flex Real Time PCR syste m. A posit mi resul t is provi ded for patho genic bacte dali, virus and/o r funga l speci es based on detec tion of ampli ficat ion produ cts. Teresa l vagin al savannah resul ts of Teresa l or Copake bowen are deter mined by calcu latin g the ratio of the organ ism to the total bacte dali prese nt in the speci men, and kwasi ring that ratio to a PathG roup patie nt popul ation . Overa ll resul ts of Teresa l, Borde rline and Abnor mal are deter mined using a proba bilit y model which was devel oped by an exten sive jax sis and integ ratio n of clini marlys thres holds for marke r organ isms on a large set of sympt omati c & asymp tomat ic speci mens. Patie nt popul ation s with diffe rent demog raphi cs from the PathG roup model popul ation may have diffe rent indic ator organ isms with diffe rent relat mi ratio s, which would influ ence the final resul ts. Resul ts shoul d be inter prete d in the prudencio xt of all clini marlys and labor atory findi ngs. The test was devel oped and its perfo rmanc e yasir cteri stics deter mined by [employer] Patho logis ts, [employer] d/b/a [facility]G roup. It has not been clear ed or appro chuy by the U.S. Food and Drug Admin istra tion. The FDA has deter mined that such clear ance or appro rufino is not neces kody. Perti nent refer ence inter vals are avail able from the labor atory on reque st. Test( s) perfo rmed by [facility], [employer], d/b/a [facility], [address], [place] [address] , Sheila Schroeder ra, DO, Labor atory Direc tor. Not Available [facility] ([facility]) [address], [place], [address], 02/17/2020 05:30:25 02/15/20 20 02/17/2020 bacte rial vagin osis + vagin itis panel , vagin al trichomonas vaginalis, aptima (panther) NOT DETECT ED normal Trich omona s vagin russ: DNA testi ng perfo rmed by Trans cript ion Media bowen Ampli ficat ion (TMA) These resul ts shoul d be inter prete d in light of all clini marlys and labor atory findi ngs. This assay is highl y accur ate, but rare false posit mi and negat mi resul ts may occur . Posit mi resul ts in low preva lence popul ation s may requi re re-ev aluat ion. A negat mi resul t does not precl ude a possi ble infec tion due to a speci men inade quacy or sampl ing error . Test perfo rmed by [employer]oc [employer] Patho logis [employer], [employer], d/b/a [facility], [address], [place] [address] , Sheila Schroeder ra, , Labor atory Direc tor. Gardn erell a vagin russ, Aidee da speci es: Genom ic DNA is isola bowen from patie nt speci mens by stand grant labor atory techn iques and jax zed using custo m OpenA rray plate s, perfo rmed on the eNovancei o 12K Flex Real Time PCR syste m. A posit mi resul t is provi ded for patho genic bacte dali, virus and/o r funga l speci es based on detec tion of ampli ficat ion produ cts. Teresa l vagin al savannah resul ts of Teresa l or Copake bowen are deter mined by calcu latin g the ratio of the organ ism to the total bacte dali prese nt in the speci men, and kwasi ring that ratio to a PathG roup patie nt popul ation . Overa ll resul ts of Etresa l, Borde rline and Abnor mal are deter mined using a proba bilit y model which was devel oped by an exten sive jax sis and integ ratio n of clini marlys thres holds for marke r organ isms on a large set of sympt omati c & asymp tomat ic speci mens. Patie nt popul ation s with diffe rent demog raphi cs from the PathG roup model popul ation may have diffe rent indic ator organ isms with diffe rent relat mi ratio s, which would influ ence the final resul ts. Resul ts shoul d be inter prete d in the prudencio xt of all clini marlys and labor atory findi ngs. The test was devel oped and its perfo rmanc e yasir cteri stics deter mined by [employer] Patho logis ts, [employer] d/b/a [facility]G roup. It has not been clear ed or appro chuy by the U.S. Food and Drug Admin istra tion. The FDA has deter mined that such clear ance or appro rufino is not neces kody. Perti nent refer ence inter vals are avail able from the [employer] atory on reque st. Test( s) perfo rmed by [employer] [facility], d/b/a [facility], [address], [place] [address] , Sheila Schroeder ra, DO, Labor atory Direc tor. Not Available [facility]) [address], [place], [address], 02/17/2020 05:30:25 05/23/19 22 05/23/2021 VAGIN ITIS/ VAGIN OSIS, DNA PROBE nanda sp. detection, direct probe Positi ve negati ve abnormal Not Available [facility] (Lab) [address], [place], [address], 05/24/2021 14:02:20 05/23/19 22 05/23/2021 VAGIN ITIS/ VAGIN OSIS, DNA PROBE gardnerella vag. detection, direct probe Negati ve negati ve Not Available [facility] (Lab) [address], [place], [address], 05/24/2021 14:02:20 05/23/19 22 05/23/2021 VAGIN ITIS/ VAGIN OSIS, DNA PROBE trichomonas vag. detection, direct probe Negati ve negati ve Not Available [facility] (Lab) [address], [place], [address], 05/24/2021 14:02:20 Result Notes Documentation Provider Name and Address Organization Details Recorded Time Bacterial Vaginosis + Vaginitis Panel, Vaginal : tx at visit Junior cortez [facility] 05/28/2021 14:37:08 Problems Name Problem SNOMED Code Status Onset Date Resolution Date Notes Provider Name and Address Organization Details Recorded Time SNOMED CT Concept Completed 201904/26/2021 Encntr for general adult medical exam w/o abnormal findings;R ecorded Elsewhere: No Locatio n: [facility]: EHR Chroni c: N Practice ID: [id number] Billa ble Time: 02:30:00 PM Katie cortez [facility] 14:19:[address] Concept Completed 201904/26/2021 Encntr for rn surgery icu exam (general) (routine) w/o abn findings;R ecorded Elsewhere: No Locatio n: [facility]: EHR Chroni c: N Practice ID: [id number] Billa ble Time: 02:30:00 PM Katie Boss [facility] 14:19:47 Problem Notes None recorded. Procedures Surgical History Date Name Laterality Status Provider Name and Address Organization Details Recorded Time 05/19/19 Date of Last Pap Smear completed Kayla Roberts [facility] 05/23/2021 09:27:28 LEEP completed [facility] 02/14/2020 09:34:27 removal of implantable venous access port completed [facility] 02/15/2020 12:46:39 Imaging Results None recorded. Procedure Notes None recorded. Medical Equipment None Reported. Allergies No known drug allergies Medications Name Sig Start Date Stop Date Status Note LastModified by Organization Details LastModified Time metformin 500 mg tablet take 1 tablet by oral route 2 times every day with morning and evening meals 04/26 completed Prescrib ed Elsewher e: Yes [facility] By: [email or web address] Encount er DateTime : 05/18/19 02:30:00 PM Not Available Not Available Not Available venlafaxi ne ER 37.5 mg capsule,e xtended release 24 hr take 1 capsule by oral route every day with food 04/26 completed Prescrib ed Elsewher e: Yes [facility] By: Encount er DateTime : 05/18/19 02:30:00 PM Not Available Not Available Not Available nystatin 100,000 unit/gram topical ointment APPLY TO THE AFFECTED AREA TWICE DAILY 05/23 completed Not Available Not Available Not Available fluconazo le 150 mg tablet TAKE 1 TABLET BY MOUTH EVERY 72 HOURS active Not Available Not Available No t Available fluconazo le 200 mg tablet TAKE 1 TABLET BY MOUTH EVERY OTHER DAY FOR 3 DOSES 04/26 completed Not Available Not Available Not Available clonazepa m 0.5 mg tablet take 1 tablet by oral route 3 times every day 04/26 completed Prescrib ed Elsewher e: Yes [facility] By: [email or web address] Encount er DateTime : 05/18/19 02:30:00 PM Not Available Not Available Not Available simvastat in 10 mg tablet take 1 tablet by oral route every day in the evening 04/26 completed Prescrib marcos Bae e: Yes Loca tion: [facility] Prieto odbrian By: [email or web address] Encount er DateTime : 05/18/19 02:30:00 PM Not Available Not Available Not Available clonazepa m 1 mg tablet TAKE 1 TABLET BY MOUTH TWICE DAILY NEEDED FOR ANXIETY active Not Available Not Available No t Available metronida zole 500 mg tablet TAKE 1 TABLET BY MOUTH EVERY 12 HOURS FOR 7 DAYS 04/26 completed Not Available Not Available Not Available valacyclo vir 500 mg tablet take 1 tablet by oral route every day active Not Available Not Available No t Available simvastat in 40 mg tablet TAKE 1 TABLET BY MOUTH DAILY active Not Available Not Available No t Available glimepiri de 1 mg tablet take 1 tablet by oral route every day 05/23 completed Not Available Not Available Not Available nystatin- triamcino lone 100,000 unit/gram -0.1 % topical ointment APPLY EXTERNAL LY TO THE AFFECTED AREA TWICE DAILY 04/26 completed Not Available Not Available Not Available OneTouch Ultra Test strips TEST FOUR TIMES DAILY active Not Available Not Available No t Available benzonata te 100 mg capsule 04/26 completed Not Available Not Available Not Available metformin 1,000 mg tablet TAKE 1 TABLET BY MOUTH TWICE DAILY WITH THE MORNING AND EVENING MEAL 05/23 completed Not Available Not Available Not Available triamcino lone acetonide 0.1 % topical ointment APPLY TO THE AFFECTED AREA TWICE DAILY 05/23 completed Not Available Not Available Not Available glimepiri de 4 mg tablet TAKE 1 TABLET BY MOUTH EVERY DAY active Not Available Not Available No t Available clonazepa m 2 mg tablet TAKE 1 TABLET BY MOUTH DAILY NEEDED FOR ANXIETY active Not Available Not Available No t Available mirtazapi ne 15 mg tablet TAKE 1 TABLET BY MOUTH AT BEDTIME FOR MAJOR DEPRESSI ON active Not Available Not Available No t Available zolpidem 10 mg tablet 05/23 completed Not Available Not Available Not Available methylpre dnisolone 4 mg tablets in a dose pack FOLLOW PACKAGE DIRECTIO NS 04/26 completed Not Available Not Available Not Available fluticaso ne propionat e 50 mcg/actua tion nasal spray,ana pension USE 2 SPRAYS INTO EACH NOSTRIL EVERY DAY 05/23 completed Not Available Not Available Not Available amoxicill in 875 mg-potass ium clavulana te 125 mg tablet TAKE 1 TABLET BY MOUTH TWICE DAILY 04/26 completed Not Available Not Available Not Available simvastat in 04/26 completed Not Available Not Available Not Available valacyclo vir 04/26 completed Not Available Not Available Not Available metformin active Not Available Not Ananya ilable Not Available Januvia 25 mg tablet take 1 tablet by oral route every day 04/26 completed Prescrib ed Elsewher e: Yes [facility] By: [email or web address] Encount er DateTime : 05/18/19 02:30:00 PM Not Available Not Available Not Available Januvia 100 mg tablet TAKE 1 TABLET BY MOUTH DAILY 05/23 completed Not Available Not Available Not Available venlafaxi ne ER 225 mg tablet,ex tended release 24 hr TAKE 1 TABLET BY MOUTH DAILY WITH BREAKFAS T active Not Available Not Available No t Available Unifine Pentips Plus 32 gauge x 5/32 needle USE DAILY DIRECTED active Not Available Not Available No t Available Basagllian MortensenikPen U-100 Insulin 100 unit/mL (3 mL) subcutane ous INJECT 15 UNITS UNDER THE SKIN EVERY MORNING active Not Available Not Available No t Available Omnipod Dash Pods (Gen 4) subcutane ous cartridge active Not Available Not Available No t Available ID NOW COVID-19 Test Kit DIRECTED 04/26 completed Not Available Not Available Not Available Gvoke HypoPen 2-Pack 1 mg/0.2 mL subcutane ous auto-inje ctor INJECT 1MG NEEDED BY SUBCUTAN EOUS ROUTE NEEDED FOR 1 DAY. active Not Available Not Available No t Available Vitals Date Recorded Body height Body mass index (BMI) Body weight Systolic And Diastolic Provider Name and Address Organization Details Last Updated DateTime 02/15/2020 160.02 cm 35.4 kg/m2 77599.47 g 133/88 mm[Hg] Rose Pearl [facility] 02/15/2020 12:44:51 Social History Question Answer Notes LastModified by [employer] Details LastModified Time Tobacco Smoking Status Current Every Day Smoker Not Available [facility] 03/07/2020 03:28:11 Are You Blind Or Do You Have Difficulty Seeing? No Information not available 04/26/2021 What Is Your Level Of Caffeine Consumption? Occasional Information not available 04/26/2021 Are You Deaf Or Do You Have Serious Difficulty Hearing? No Information not available 04/26/2021 What Type Of Diet Are You Following? REGULAR Information not available 04/26/2021 Do You Use Your Seat Belt Or Car Seat Routinely? Yes Information not available 04/26/2021 Do You Have Smoke And Carbon Monoxide Detectors In Your Home? Yes Information not available 04/26/2021 Do You Use Sunscreen Routinely? Yes Information not available 04/26/2021 Sex: Unknown Functional Status Question Answer Note LastModified by [email or web address] Details LastModified Time Do you use any illicit or recreational drugs? No Information not available 04/26/2021 What is your level of alcohol consumption? Occasional Information not available 04/26/2021 Are you able to walk? YESWOREST Information not available 04/26/2021 What is your exercise level? Occasional Information not available 04/26/2021 Mental Status Question Answer Note LastModified by Organization D etails LastModified Time Do you feel stressed (tense, restless, nervous, or anxious, or unable to sleep at night)? [id number] Information not available 04/26/2021 Family History Relationship Description Onset Age of this Age Resolved Age Notes LastModified by Organization Details LastModified Time Mother Hypertensive disorder [email or web address] Not available 2019 09:33:58 Maternal Grandfather Malignant neoplasm of lung [email or web address] Not available 2019 09:34:14 Medical History Condition Response Diabetes Y Anxiety Disorder Y Other Y Infertility Y Depression/ depression Y High Cholesterol Y History of STI Y History of abnormal pap Y Cancer Y Gynecological History Statement/Question Response Abnormal Pap Y Date of LMP 05/05/2014 STIs/STDs Y Was last menstrual period normal N HPV Vaccine N Current Control Method Menopause Are cycles usually normal N Sexually Active? Y Menses Monthly N Date of Last Pap Smear 05/19/2019 Sexual Problems? N LMP Definite Obstetrics History GPAL:G 2 P 0 0 0 2 Type Value Living 2 Total 2 Past Encounters Encounter ID Performer Location Encounter Start Date Encounter Closed Date Diagnosis/Indication Diagnosis SNOMED-CT Code Diagnosis ICD10 Code Diagnosis Note [id number] Christiano Tyler MD [facility] [address] [address] 02/15/2020 12:34:24 02/15/2020 13:35:07 Vulvovaginitis 85288922 N76.0 Severe vulvovagin itis. We agreed to treat with her topical antifungal and steroid cream. She will also take a Diflucan tablets b.i.d.. She is indicated to me that her her liver function is fine. [id number] Sulema Enriquez CNM [facility] [address] [address] 05/23/2021 09:23:44 05/23/2021 10:46:24 Vaginitis 36336759 N76.0 Discussed use of mild soap like dove or ivory, cotton underwear w/out dye, hypoallerg enic detergent, wipe from front to back, avoid tub baths, keep perineum clean and dry, d/c use of baby wipes. Encouraged daily intake of yogurt or [employer] probiotic. Internal and external affirm collected. Pt will use diflucan and monistat. She is aware that uncontroll ed diabetes can increase yeast infections . Had a telehealth visit with new primary recently. Labs ordered and will be drawn soon. Health Concerns Section Related Observation LastModified by Organization Detai ls LastModified Time None Recorded Concern Status LastModified by Organization Details LastModified Time None Recorded Advance Directives Directive None Recorded Payers Insurance Date Sequence Insurance Name Policy Number Policy Kwan Covered Member ID Kwan Member ID Guarantor Name 05/22/2021 1 [employer] (MEDICARE REPLACEMENT/ ADVANTAGE - PPO) [id number] Katiuska Pacheco [id number] Katiuska Pacheco 05/22/2021 1 [place] Katiuska A Junior [id number] Katiuska Pacheco 05/03/2021 1 *SELF PAY* Ra zay Pacheco OBGyn Episode Ob Episode Information Episode Created Date Number of Fetuses Patient Bloodtype Patient rh Status Prepregnancy Weight lbs Domestic Partner Domestic Partner Phone Father Name Sheriff'S Sergeant Status 04/30/20 21 1 CLOSED Fetus Data First Name Last Name Admitted to NICU Weight (g) Sex Living Outcome Pediatric Complications Fetus ID Race Codes Race Delivery Type F [id number] Vaginal Delivery Cristian Calculation Initial Cristian Date Initial Exam Date Initial Exam Provider Initial Ultrasound Date Last Menstrual Period Date Ultra Sound Weeks Gestation 0 Eighteen To Twenty Week Cristian Update Ultra Sound Date Fundal Height At Umbil Quickening Date Ultra Sound Latest Weeks Gestation Final Cristian Confirmed By Final Cristian Confirmed Date Final Cristian Date Ultra Sound Latest Days Gestation 0 0 Menstrual History Last Menstrual Date Menses Monthly On Bcp Conception Prior Menses Frequency Hcg Plus Date Menarche Onset Age Delivery Information Delivery Date Delivery Type Labor Anesthesia Weeks Gestation Incision Type Labor Labor Length Hrs Delivered By Post Complications Tubal Sterilization Discharge Date Comments 9 Discharge Information Feeding Method Contraceptive Method Maternal HG B and HCT Levels Ob Episode Information Episode Created Date Number of Fetuses Patient Bloodtype Patient rh Status Prepregnancy Weight lbs Domestic Partner Domestic Partner Phone Father Name Sheriff'S Sergeant Status 04/30/20 21 1 CLOSED Fetus Data First Name Last Name Admitted to NICU Weight (g) Sex Living Outcome Pediatric Complications Fetus ID Race Codes Race Delivery Type F [id number] Vaginal Delivery Cristian Calculation Initial Cristian Date Initial Exam Date Initial Exam Provider Initial Ultrasound Date Last Menstrual Period Date Ultra Sound Weeks Gestation 0 Eighteen To Twenty Week Cristian Update Ultra Sound Date Fundal Height At Umbil Quickening Date Ultra Sound Latest Weeks Gestation Final Cristian Confirmed By Final Cristian Confirmed Date Final Cristian Date Ultra Sound Latest Days Gestation 0 0 Menstrual History Last Menstrual Date Menses Monthly On Bcp Conception Prior Menses Frequency Hcg Plus Date Menarche Onset Age Delivery Information Delivery Date Delivery Type Labor Anesthesia Weeks Gestation Incision Type Labor Labor Length Hrs Delivered By Post Complications Tubal Sterilization Discharge Date Comments 4 Discharge Information Feeding Method Contraceptive Method Maternal HG B and HCT Levels
--- OUTSIDE RECORDS SUMMARY | 2024-11-30 00:27 | XMS_ITS | Encounter Summary ---
Author Organization [facility] Address [address] [facility] [place] [address] Care Team Providers Care [place]anau Support Worker Name Role Phone Unknown, Provider Primary Care Provider Unavaila Fawad Tony MD Unavailable [phone] Kary Logan RN Unavailable Unavailab Tyrell Reed Unavailable Unavailab Mally Edward MD Unavailable [phone] Angelica Watson MD Unavailable [phone] Livier Ying RN Unavailable Unavailable Natalie Tian RN Unavailable UnavailLatha Box WEAVER APPRENTICE-HYDRAULIC SPINNER Unavailable [phone] Kary Logan RN Unavailable Unavailab Lelo Greene WEAVER APPRENTICE-RESORT KEEPER Unavailable [phone] Theodore Oswald PA-C Unavailable Unavail able Meghan Alexander ACCOUNT MAINTENANCE REPRESENTATIVE Unavailable Unavailab Leena Escobedo SOIL SPECIALIST Unavailable Unavailable Flaquita Manning PharmD Unavailable Unavaila Meghan EdwardsD Unavailable UnavailAleah Cormier WEAVER APPRENTICE-RESORT KEEPER Unavailable [phone] Selma Garcia RN Unavailable Unavailable Rody King RN Unavailable UnavailAron Jolley RN Unavailable Unavailable Ligia Rivera MA Unavailable Unavailable Ani Lira Unavailable Unavailable Carolina Oglesby Unavailable Yana Lelo Lira MD Primary Care Provider [phone] BernardinoМарина Unavailable Unavailable Tarsha Cha WEAVER APPRENTICE-RESORT KEEPER Unavailable [phone] DeniceSocorro WEAVER APPRENTICE-RESORT KEEPER Unavailable [phone] Jennifer Fung MD Unavailable Encounter Details Date Type Department Care Team (Late st Contact Info) Description 07/11/2014 Lab Requisition [facility] - Lab Cytogenetics [address] [place] [address] Juanito Pimentel MD [address] [place], [place] [id number] AML (acute myeloblastic leukemia) Social History Tobacco Use Types Packs/Day Years Used Date Smoking Tobacco: Never Assessed Comments Unknown Sex and Gender Information Value Date Recorded Sex Assigned at Not on file Legal Sex Female 2:19 PM 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 5 1:30 PM CDT [facility] CYTO[facility]OM[facility] at 1330 CDT Disclaimer *This test was developed, and its performance characteristics determined by [facility] Molecular Cytogenetics Laboratory as required [...] pathology with cytogenetic findings. 5 1:30 PM CDT [facility] CYTO[facility]OMIC [facility] Historical Cytogenomic Report [id number] on 06/24/2014 Results: Analysis of 500 interphase [...] to be of donor origin. at 1348 WG [id number] on 05/03/2014 Results: Fluorescence In-Situ Hybridization (FISH): Analysis of 500 interphase cells hybridized with specific labeled fluorescent probes*: break apart MLL probes* directed onto 11q23 showed the following results: nuc aidan (MLLx2)[467/500] Normal Interpretation: To rule out minimal residual disease of the previously identified clonal abnormality (see below;[id number]), FISH was performed using specific probes* as listed in the result section. FISH was negative indicating a possible disease remission. The previous study ([id number])showed a separation of the MLL signals in less than 1% of cells. Clinicopathological correlation is suggested. at 1713 WG [id number] on 04/20/2014 Results: Fluorescence In-Situ Hybridization (FISH): Analysis of 500 interphase cells hybridized with specific labeled fluorescent probes*: break apart MLL probes* directed onto 11q23 showed the following results: nuc aidan (MLLx2)(5'MLL sep 3'MLLx1)[4/500] Abnormal showing MLL abnormality in less than 1% of cells. Interpretation: To rule out a minimal residual disease of the previously identified clonal abnormality (see below;[id number]), FISH was performed using specific probes* as [...] onto 11q23 and 16q22, dual labeled probes* D5S23/U7E210 directed onto 5p15.2/5q31, dual labeled probes* CEP7/X8K325 directed onto 7 cent/7q31, dual labeled CEP8/W37O370 directed onto 8cent/20q11.2, and dual labeled dual fusion ETO/AML1 directed onto 8q22/21q22 showed the following results: nuc aidan (EVI1x2)[196/200],(D 5S23,V4N472,EGR1)x2[ 197/200],(D7Z1,D7S48 6)x2[195/200],(CEP8, N77M721)x2[187/200], (ETO,AML1)x2[190/200 ],(MLLx2)(5'MLL sep 3'MLLx21)[85/100],(F OXO1x2)[192/200],(CB FBx2)[190/200] Abnormal [...] result electronically signed by Megan Larkin PhD on 04/07/2014 at 1306 5 1:30 PM CDT [facility]GENOM[facility] Client Information [facility] - [id number] [facility] Lab Number: [id number] 5 1:30 PM CDT [facility] CYTOGENOM[facility] Other BLOOD SPECIMEN / Unknown 07/11/2014 3:37 PM CDT 07/11/2014 3:37 PM CDT us Juanito Pimentel MD LAB - PATHOLOGY/CYTOLOGY MARICARMEN NEW Final Result [facility] [place] [address] documented in this encounter Visit Diagnoses Diagnosis AML (acute myeloblastic leukemia) (HCC) Acute myeloid leukemia, without mention of having achieved remission documented in this encounter Additional Health Concerns Infection Onset Date Last Indicated Resolved Time COVID-19 Under Investigation 01/27/2022 01/27/2022 01/27/2022 9:08 PM CDT COVID-19 Under Investigation 01/28/2022 01/28/2022 01/28/2022 3:39 PM CDT documented as of this encounter Care Teams Whanau Support Worker Relationship Specialty Start Date End Date Unknown, Provider PCP - General 08/18/17 10/19/17 Lelo Lopez MD [address] [place] [address] PCP - General 10/20/17 Fawad Ruffin MD Hematology and Oncology 09/23/17 Kary Logan RN 09/23/17 09/24/17 Tyrell Diaz Update Information Referring Physician Oncology 09/25/17 Mally Rgoers MD [address] [place], [place] [id number] Hematology and Oncology 09/25/17 Angelica Watson MD [address] [place] [address] Hematology and Oncology 09/25/17 Livier Ying, RN 09/25/17 11/22/20 Natalie Tian, RN Registered Nurse 09/25/17 Latha Ordoñez, WEAVER APPRENTICE-HYDRAULIC SPINNER [address] [facility] 2nd [place] [address] Oncology 09/25/17 Kary Logan RN 09/25/17 11/22/20 Lelo Becerra, WEAVER APPRENTICE-RESORT KEEPER [address] [place] [address] Family Medicine 09/25/17 11/22/20 Theodore Oswald PA-C [address] [place] [address] Physician Metal Fabricator Helper 09/25/17 Meghan Jurado, ACCOUNT MAINTENANCE REPRESENTATIVE Photogrammetric Technician 09/25/17 11/22/20 Leena Borden, SOIL SPECIALIST Photogrammetric Technician 09/25/17 Flaquita Manning, PharmD 09/25/17 Meghan Maya, PharmD 09/25/17 06/30/19 Aleah Giordano, WEAVER APPRENTICE-RESORT KEEPER Family Medicine 09/25/17 11/22/20 Selma Garcia, VALERIA 10/20/17 11/22/20 Rody King, VALERIA 10/20/17 11/22/20 Aron Powell, VALERIA 10/20/17 06/30/19 Ligia Rivera MA 10/20/17 06/30/19 Ani Lira 10/20/17 11/22/20 Carolina Oglesby 10/20/17 Марина Lebron Rubber Calender Helper Psychiatry 10/20/17 08/10/18 Tarsha Cha, WEAVER APPRENTICE-RESORT KEEPER [address] [facility] OF HEMATOLOGY & [place] [address] Nurse Practitioner Family 10/04/20 Socorro Galdamez APRN-NARINDER [address] [place] [facility] HEMAT[facility] [place] [address] Nurse Practitioner 10/04/20 Jennifer Fung MD [address] [place] [facility] [place] [address] Hematology and Oncology 11/23/21 documented as of this encounter
--- OUTSIDE RECORDS SUMMARY | 2024-11-30 00:27 | XMS_ITS | Encounter Summary ---
Author Organization [facility] Address [address] [place] [address] Care Team Providers Care Match Up Person Name Role Phone Unknown, Provider Primary Care Provider Unavaila Fawad Tony MD Unavailable [phone] Kary Logan RN Unavailable Unavailab Tyrell Reed Unavailable Unavailab Mally Edward MD Unavailable [phone] Angelica Watson MD Unavailable [phone] Livier Ying RN Unavailable Unavailable Natalie Tian RN Unavailable UnavailLatha Box JAR FILLER-FIRESTOPPER INSTALLER Unavailable [phone] Kary Logan RN Unavailable Unavailab Lelo Greene JAR FILLER-DIRECTOR OF LABORATORY OPERATIONS Unavailable [phone] Theodore Oswald PA-C Unavailable Unavail able Meghan Alexander MAINTAINER CENTRAL OFFICE Unavailable Unavailab Leena Escobedo CUTTER GRINDER Unavailable Unavailable Flaquita Manning PharmD Unavailable Unavaila Meghan EdwardsD Unavailable UnavailAleah Cormier JAR FILLER-DIRECTOR OF LABORATORY OPERATIONS Unavailable [phone] Selma Garcia RN Unavailable Unavailable Rody King RN Unavailable UnavailAron Jolley RN Unavailable Unavailable Ligia Rivera MA Unavailable Unavailable Ani Lira Unavailable Unavailable Carolina Oglesby Unavailable Yana Lelo Lira MD Primary Care Provider [phone] BernardinoМарина Unavailable Unavailable Tarsha Cha JAR FILLER-DIRECTOR OF LABORATORY OPERATIONS Unavailable [phone] GaldamezSocorro JAR FILLER-DIRECTOR OF LABORATORY OPERATIONS Unavailable [phone] Jennifer Fung MD Unavailable Encounter Details Date Type Department Care Team (Late st Contact Info) Description 06/24/2014 Lab Requisition [facility] - Lab Cytogenetics [address] [place] [address] Fawad Ruffin MD [address] [place] [address] Rd [address] [place] [address] AML (acute myeloblastic leukemia) Social History Tobacco Use Types Packs/Day Years Used Date Smoking Tobacco: Never Assessed Comments Unknown Sex and Gender Information Value Date Recorded Sex Assigned at Not on file Legal Sex Female 2:19 PM CONSTRUCTION PROJECT MGR Gender Identity Not on file Sexual Orientation Not on file documented as of this encounter Plan of Treatment Not on file documented as of this encounter Procedures Procedure Name Priority Date/Time Associated Diagnosis Comments CYTOGENETICS CANCER PANEL Routine 06/24/2014 10:31 AM CONSTRUCTION PROJECT MGR AML (acute myeloblastic leukemia) [ICD-9-CM] documented in this encounter Results * CYTOGENETICS CANCER PANEL (06/24/2014 10:31 AM CONSTRUCTION PROJECT MGR) Indication for Study History of AML(Post Transplant MALE Donor) FISH BMT XX/XY requested by physician 5 1:48 PM [facility] CYTOGENOMIC LAB Results Cytogenetics Analysis of 500 interphase cells from the peripheral oncology blood hybridized to dual labeled X and Y specific alpha satellite probes* showed the following results: nuc aidan(DXZ1x2)[5/500]// (DXZ1,DYZ3)x1[493/50 0] 98% donor 5 1:48 PM [facility]LE[facility] CYTOGENOMIC LAB Interpretation Fluorescence in-situ hybridization [...] be of donor origin. 5 1:48 PM [facility] CYTOGENOMIC LAB at 1348 CONSTRUCTION PROJECT MGR Disclaimer *This test was developed, and its performance characteristics determined by [facility] Molecular Cytogenetics Laboratory as required [...] pathology with cytogenetic findings. 5 1:48 PM [facility]LE[facility] CYTOGENOMIC LAB Historical Cytogenomic Report WG on 05/03/2014 Results: Fluorescence In-Situ Hybridization (FISH): Analysis of 500 interphase cells hybridized with specific labeled fluorescent probes*: break apart MLL probes* directed onto 11q23 showed the following results: nuc aidan (MLLx2)[467/500] Normal Interpretation: To rule out minimal residual disease of the previously identified clonal abnormality (see below;), FISH was performed using specific probes* as listed in the result section. FISH was negative indicating a possible disease remission. The previous study ()showed a separation of the MLL signals in [...] onto 11q23 and 16q22, dual labeled probes* D5S23/V5M325 directed onto 5p15.2/5q31, dual labeled probes* CEP7/W8Z635 directed onto 7 cent/7q31, dual labeled CEP8/Y20L289 directed onto 8cent/20q11.2, and dual labeled dual fusion ETO/AML1 directed onto 8q22/21q22 showed the following results: nuc aidan (EVI1x2)[196/200],(D 5S23,B1Q673,EGR1)x2[ 197/200],(D7Z1,D7S48 6)x2[195/200],(CEP8, N45D169)x2[187/200], (ETO,AML1)x2[190/200 ],(MLLx2)(5'MLL sep 3'MLLx21)[85/100],(F OXO1x2)[192/200],(CB FBx2)[190/200] Abnormal [...] on 04/07/2014 at 1306 5 1:48 PM [facility] CYTOGENOMIC LAB Client Information [facility] - [id number] [facility] Lab Number: [id number]; [id number] 5 1:48 PM CONSTRUCTION PROJECT MGR [facility] MOLECULAR CYTOGENOMIC LAB Other BLOOD SPECIMEN / Unknown 06/24/2014 10:31 AM CONSTRUCTION PROJECT MGR 06/24/2014 10:31 AM CONSTRUCTION PROJECT MGR us Fawad Ruffin MD LAB - PATHOLOGY/CYTOLOGY O RDERABLES Final Result [facility] CYTOGENOMIC LAB [address] [place] [address] documented in this encounter Visit Diagnoses Diagnosis AML (acute myeloblastic leukemia) (HCC) Acute myeloid leukemia, without mention of having achieved remission documented in this encounter Additional Health Concerns Infection Onset Date Last Indicated Resolved Time COVID-19 Under Investigation 01/27/2022 01/27/2022 01/27/2022 9:08 PM CDT COVID-19 Under Investigation 01/28/2022 01/28/2022 01/28/2022 3:39 PM CDT documented as of this encounter Care Teams Match Up Person Relationship Specialty Start Date End Date Unknown, Provider PCP - General 08/18/17 10/19/17 Lelo Lopez MD [address] [place] [address] PCP - General 10/20/17 Fawad Ruffin MD Hematology and Oncology 09/23/17 Kary Logan, RN 09/23/17 09/24/17 Tyrell Diaz Update Information Referring Physician Oncology 09/25/17 Mally Rogers MD [address] [place] [address] Hematology and Oncology 09/25/17 Angelica Watson MD [address] [place] [address] Hematology and Oncology 09/25/17 Livier Ying, RN 09/25/17 11/22/20 Natalie Tian, RN Registered Nurse 09/25/17 Latha Ordoñez, JOSÉ MIGUEL-FIRESTOPPER INSTALLER [address] [facility] 2nd [place] [address] Oncology 09/25/17 Kary Logan, RN 09/25/17 11/22/20 Lelo Becerra APRN-DIRECTOR OF LABORATORY OPERATIONS [address] [facility] 2nd [place] [address] Family Medicine 09/25/17 11/22/20 Theodore Oswald PA-C [address] 2nd [place] [address] Physician Shed Boss 09/25/17 0 Meghan Alexander, [facility] Repair Coil Winder 09/25/17 11/22/20 Leena Borden, [facility] Repair Coil Winder 09/25/17 Flaquita Manning, PharmD 09/25/17 Meghan Maya, PharmD 09/25/17 06/30/19 Aleah Giordano, JAR FILLER-DIRECTOR OF LABORATORY OPERATIONS Family Medicine 09/25/17 11/22/20 Selma Garcia, RN 10/20/17 11/22/20 Rody King, VALERIA 10/20/17 11/22/20 Aron Powell, VALERIA 10/20/17 06/30/19 Ligia Rivera MA 10/20/17 06/30/19 Ani Lira 10/20/17 11/22/20 Carolina Oglesby 10/20/17 Марина Lebron Rib Cloth Knitter Psychiatry 10/20/17 08/10/18 Tarsha Cha JAR FILLER-DIRECTOR OF LABORATORY OPERATIONS [address] DIV OF HEMATOLOGY & [place] [address] Nurse Practitioner Family 10/04/20 Socorro Galdamez JAR FILLER-DIRECTOR OF LABORATORY OPERATIONS [address] DIV OF HEMATOLOGY & [place] [address] Nurse Practitioner 10/04/20 Jennifer Fung MD [address] DIV OF HEMATOLOGY & [place] [address] Hematology and Oncology 11/23/21 documented as of this encounter
--- OUTSIDE RECORDS SUMMARY | 2024-11-30 00:27 | XMS_ITS | Encounter Summary ---
Author Organization [facility] Address [address] [facility] [place] [address] Care Team Providers Care Compounder Flavorings Name Role Phone Unknown, Provider Primary Care Provider Unavaila Fawad Tony MD Unavailable [phone] Kary Logan RN Unavailable Unavailab Tyrell Reed Unavailable Unavailab Mally Edward MD Unavailable [phone] Angelica Watson MD Unavailable [phone] Livier Ying RN Unavailable Unavailable Natalie Tian RN Unavailable UnavailLatha Box MANAGER RESORT-DEPARTMENT CLINICIAN Unavailable [phone] Kary Logan RN Unavailable Unavailab Lelo Greene MANAGER RESORT-FLOOR SPACE ALLOCATOR Unavailable [phone] Theodore Oswald PA-C Unavailable Unavail able Meghan Alexander AUTOMOBILE SERVICE STATION MECHANIC Unavailable Unavailab Leena Escobedo MARINE EQUIPMENT DESIGN ENGINEER Unavailable Unavailable Flaquita Manning PharmD Unavailable Unavaila Meghan EdwardsD Unavailable UnavailAleah Cormier MANAGER RESORT-FLOOR SPACE ALLOCATOR Unavailable [phone] Selma Garcia RN Unavailable Unavailable Rody King RN Unavailable UnavailrAon Jolley RN Unavailable Unavailable Ligia Rivera MA Unavailable Unavailable Ani Lira Unavailable Unavailable Carolina Oglesby Unavailable Yana Lelo Lira MD Primary Care Provider [phone] BernardinoМарина Unavailable Unavailable Tarsha Cha MANAGER RESORT-FLOOR SPACE ALLOCATOR Unavailable [phone] GaldamezSocorro MANAGER RESORT-FLOOR SPACE ALLOCATOR Unavailable [phone] Jennifer Fung MD Unavailable Encounter Details Date Type Department Care Team (Late st Contact Info) Description 04/06/2014 Lab Requisition [facility] - Lab Cytogenetics [address] [place] [address] Thanh Raymond MD [address] [place], [place] [id number] AML (acute myeloblastic leukemia) Social History Tobacco Use Types Packs/Day Years Used Date Smoking Tobacco: Never Assessed Comments Unknown Sex and Gender Information Value Date Recorded Sex Assigned at Not on file Legal Sex Female 2:19 PM ATTENDANCE OFFICER Gender Identity Not on file Sexual Orientation Not on file documented as of this encounter Plan of Treatment Not on file documented as of this encounter Procedures Procedure Name Priority Date/Time Associated Diagnosis Comments CYTOGENETICS CANCER PANEL Routine 04/06/2014 2:25 PM ATTENDANCE OFFICER AML (acute myeloblastic leukemia) [ICD-9-CM] documented in this encounter Results * CYTOGENETICS CANCER PANEL (04/06/2014 2:25 PM ATTENDANCE OFFICER) Indication for Study Suspected AML- pretreatment FISH AML panel and BCR/ABL1 requested by physician 4 2:01 PM ATTENDANCE OFFICER [facility] CYTOGENOMIC LAB Results Cytogenetics Fluorescence In-Situ Hybridization (FISH): Analysis of 200 [...] onto 11q23 and 16q22, dual labeled probes* D5S23/L2Z541 directed onto 5p15.2/5q31, dual labeled probes* CEP7/R0Q419 directed onto 7 cent/7q31, dual labeled CEP8/K23G916 directed onto 8cent/20q11.2, and dual labeled dual fusion ETO/AML1 directed onto 8q22/21q22 showed the following results: nuc aidan (EVI1x2)[196/200],(D 5S23,K8G870,EGR1)x2[ 197/200],(D7Z1,D7S48 6)x2[195/200],(CEP8, E08B956)x2[187/200], (ETO,AML1)x2[190/200 ],(MLLx2)(5'MLL sep 3'MLLx21)[85/100],(F OXO1x2)[192/200],(CB FBx2)[190/200] Abnormal showing MLL abnormality in 85% of cells. 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 4 2:01 PM ATTENDANCE OFFICER [facility]LE[facility] CYTOGENOMIC LAB at 1401 ATTENDANCE OFFICER Preliminary result electronically signed by Megna Larkin, PhD ABMG on 04/08/2014 at 1533 ATTENDANCE OFFICER Preliminary result electronically signed by Megan Larkin, PhD ABMG on 04/07/2014 at 1306 ATTENDANCE OFFICER Disclaimer *This test was developed, and its performance characteristics determined by [facility] Molecular Cytogenetics Laboratory as required [...] pathology with cytogenetic findings. 4 2:01 PM ATTENDANCE OFFICER [facility] CYTOGENOMIC LAB Other BONE MARROW SPECIMEN / Unknown 04/06/2014 2:25 PM ATTENDANCE OFFICER 04/06/2014 2:26 PM ATTENDANCE OFFICER Thanh Raymond MD LAB - PATHOLOGY/CYTOLOGY ORDERA BLES Final Result [facility] CYTOGENOMIC [facility] [address] [place] [address] documented in this encounter Visit Diagnoses Diagnosis AML (acute myeloblastic leukemia) (HCC) Acute myeloid leukemia, without mention of having achieved remission documented in this encounter Additional Health Concerns Infection Onset Date Last Indicated Resolved Time COVID-19 Under Investigation 01/27/2022 01/27/2022 01/27/2022 9:08 PM CDT COVID-19 Under Investigation 01/28/2022 01/28/2022 01/28/2022 3:39 PM CDT documented as of this encounter Care Teams Compounder Flavorings Relationship Specialty Start Date End Date Unknown, Provider PCP - General 08/18/17 10/19/17 Lelo Lopez MD [address] [place], [place] [id number] PCP - General 10/20/17 Fawad Ruffin MD Hematology and Oncology 09/23/17 Kary Logan, RN 09/23/17 09/24/17 Emily Tyrellalin Bonilla Update Information Referring Physician Oncology 09/25/17 Mally Rogers MD [facility] [place] [address] Hematology and Oncology 09/25/17 Angelica Watson MD [facility] [place] [address] Hematology and Oncology 09/25/17 Livier Ying, RN 09/25/17 11/22/20 Natalie Tian, RN Registered Nurse 09/25/17 Latha Ordoñez, MANAGER RESORT-DEPARTMENT CLINICIAN [address] [place], [place] [address]TA [facility] 2[place] [address] Oncology 09/25/17 Kary Logan, RN 09/25/17 11/22/20 Lelo Becerra, MANAGER RESORT-FLOOR SPACE ALLOCATOR [address] [place] [address] [address] [place] [address] Family Medicine 09/25/17 11/22/20 Theodore Oswald PA-C [address] [place] [address] [address]nd [place] [address] Physician Behavioral Sciences Instructor 09/25/17 0 Meghan Alexander, AUTOMOBILE SERVICE STATION MECHANIC Alumni Relations Coordinator 09/25/17 11/22/20 Leena Borden, MARINE EQUIPMENT DESIGN ENGINEER Alumni Relations Coordinator 09/25/17 Flaquita Manning, PharmD 09/25/17 Meghan Maya, PharmD 09/25/17 06/30/19 Aleah Giordano, MANAGER RESORT-FLOOR SPACE ALLOCATOR Family Medicine 09/25/17 11/22/20 Selma Garcia, VALERIA 10/20/17 11/22/20 Rody King, VALERIA 10/20/17 11/22/20 Aron Powell, VALERIA 10/20/17 06/30/19 Ligia Rivera MA 10/20/17 06/30/19 Ani Lira 10/20/17 11/22/20 Carolina Oglesby 10/20/17 Марина Lebron Branch Operations Specialist Psychiatry 10/20/17 08/10/18 Tarsha Cha APRN-FLOOR SPACE ALLOCATOR [address] DIV OF HEMATOLOGY & [place] [address] Nurse Practitioner Family 10/04/20 Socorro Galdamez APRN-FLOOR SPACE ALLOCATOR [address] DIV OF HEMATOLOGY & [place] [address] Nurse Practitioner 10/04/20 Jennifer Fung MD [address] DIV OF HEMATOLOGY & [place] [address] Hematology and Oncology 11/23/21 documented as of this encounter
--- OUTSIDE RECORDS SUMMARY | 2024-11-30 00:27 | XMS_ITS | Encounter Summary ---
Author Organization [facility] Address [address] [place] [address] Care Team Providers Care Blast Furnace Checker Name Role Phone Unknown, Provider Primary Care Provider Unavaila Fawad Tony MD Unavailable [phone] Kary Logan RN Unavailable Unavailab Tyrell Reed Unavailable Unavailab Mally Edward MD Unavailable [phone] Angelica Watson MD Unavailable Livier Ying RN Unavailable Unavailable Natalie Tian RN Unavailable UnavailLatha Box PRODUCTION TROUBLESHOOTER-FARM ASSISTANT Unavailable [phone] Kary Logan RN Unavailable Unavailab Lleo Greene PRODUCTION TROUBLESHOOTER-MARKER MACHINE ATTENDANT Unavailable [phone] Theodore Oswald PA-C Unavailable Unavail able Meghan Alexander DISTRIBUTION DISTRICT SUPERVISOR Unavailable Unavailab Leena Escobedo CREDIT AUTHORIZER Unavailable Unavailable Flaquita Manning PharmD Unavailable Unavaila Meghan EdwardsD Unavailable UnavailAleah Cormier PRODUCTION TROUBLESHOOTER-MARKER MACHINE ATTENDANT Unavailable [phone] Selma Garcia RN Unavailable Unavailable Rody King RN Unavailable UnavailAron Jolley RN Unavailable Unavailable Ligia Rivera MA Unavailable Unavailable Ani Lira Unavailable Unavailable Carolina Oglesby Unavailable Yana Lelo Lira MD Primary Care Provider [phone] Марина Lebron Unavailable Unavailable Tarsha Cha PRODUCTION TROUBLESHOOTER-MARKER MACHINE ATTENDANT Unavailable [phone] GaldamezSocorro PRODUCTION TROUBLESHOOTER-MARKER MACHINE ATTENDANT Unavailable [phone] Jennifer Fung MD Unavailable Encounter Details Date Type Department Care Team (Late st Contact Info) Description 09/14/2014 Lab Requisition [facility] - Lab Cytogenetics [address] [place] [address] Juanito Pimentel MD [address] [place], [place] [id number] AML (acute myeloblastic leukemia) Social History Tobacco Use Types Packs/Day Years Used Date Smoking Tobacco: Never Assessed Comments Unknown Sex and Gender Information Value Date Recorded Sex Assigned at Not on file 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 5 5:42 PM CDT [facility] at 1742 CDT Disclaimer *This test was developed, and its performance characteristics determined by [facility] Molecular Cytogenetics Laboratory as [...] pathology with cytogenetic findings. 5 5:42 PM CDT [facility] Historical Cytogenomic Report BF [id number] from 08/01/2014 Results Analysis of 500 interphase [...] origin. Electronically signed by Megan Larkin, PhD [facility] on 08/02/2014 at 1158 . Comment *This test was developed, and its performance characteristics determined by [facility] Molecular Cytogenetics Laboratory as required [...] with cytogenetic findings. . Historical Cytogenomic Report [id number] on 07/11/2014 Results Analysis of 500 interphase cells from the peripheral oncology blood hybridized to dual labeled X and Y specific alpha satellite probes* showed the following results: nuc aidan(DXZ1x2)[2500]// (DXZ1,DYZ3)x1[495/50 0] 99% donor Interpretation Fluorescence in-situ [...] were found to be of donor origin. -321 on 06/24/2014 Results: Analysis of 500 interphase cells from the peripheral oncology blood hybridized to dual labeled X and Y specific alpha satellite probes* showed the following results: nuc aidan(DXZ1x2)[5500]// (DXZ1,DYZ3)x1[493/50 0] 98% donor Interpretation: Fluorescence in-situ [...] origin. Electronically signed by Megan Larkin, PhD [facility] on 06/27/2014 at [phone] on 05/03/2014 Results: Fluorescence In-Situ Hybridization (FISH): Analysis of 500 interphase cells hybridized with specific labeled fluorescent probes*: break apart MLL probes* directed onto 11q23 showed the following results: nuc aidan (MLLx2)[467/500] Normal Interpretation: To rule out minimal residual disease of the previously identified clonal abnormality (see below;[id number]), FISH was performed using specific probes* as listed in the result section. FISH was negative indicating a possible disease remission. The previous study ([id number])showed a separation of the MLL signals in less than 1% of cells. Clinicopathological correlation is suggested. Electronically signed by Vivian Ho, PhD [facility] on 05/09/2014 at 1715 on 04/20/2014 Results: Fluorescence In-Situ [...] cells. Electronically signed by Vivian Ho, PhD [facility] on 04/25/2014 at 2006 on 04/06/2014 Results: Fluorescence In-Situ [...] onto 11q23 and 16q22, dual labeled probes* D5S23/D1D898 directed onto 5p15.2/5q31, dual labeled probes* CEP7/I8H703 directed onto 7 cent/7q31, dual labeled CEP8/S80K074 directed onto 8cent/20q11.2, and dual labeled dual fusion ETO/AML1 directed onto 8q22/21q22 showed the following results: nuc aidan (EVI1x2)[196/200],(D 5S23,X3Z273,EGR1)x2[ 197/200],(D7Z1,D7S48 6)x2[195/200],(CEP8, S85L494)x2[187/200], (ETO,AML1)x2[190/200 ],(MLLx2)(5'MLL sep 3'MLLx21)[85/100],(F OXO1x2)[192/200],(CB FBx2)[190/200] Abnormal [...] correlation is suggested. 5 5:42 PM CDT [facility]OM[facility] Client Information [facility] - [id number] [facility] Lab Numbers: [id number] chrom, [id number] FISH 5 5:42 PM CDT [facility] CYTOGENOMIC [facility] Other BONE MARROW SPECIMEN / Unknown 09/14/2014 09/14/2014 3:49 PM CDT Juanito Pimentel MD LAB - PATHOLOGY/CYTOLOGY MARICARMEN NEW Final Result [facility]GENOM[facility] [place] [address] documented in this encounter Visit Diagnoses Diagnosis AML (acute myeloblastic leukemia) (HCC) Acute myeloid leukemia, without mention of having achieved remission documented in this encounter Additional Health Concerns Infection Onset Date Last Indicated Resolved Time COVID-19 Under Investigation 01/27/2022 01/27/2022 01/27/2022 9:08 PM CDT COVID-19 Under Investigation 01/28/2022 01/28/2022 01/28/2022 3:39 PM CDT documented as of this encounter Care Teams Blast Furnace Checker Relationship Specialty Start Date End Date Unknown, Provider PCP - General 08/18/17 10/19/17 Lelo Lopez MD [address] [place] [address] PCP - General 10/20/17 Fawad Ruffin MD Hematology and Oncology 09/23/17 Kary Logan, RN 09/23/17 09/24/17 Emily Tyrellalin Bonilla Update Information Referring Physician Oncology 09/25/17 Mally Rogers MD [facility] [place] [address] Hematology and Oncology 09/25/17 Angelica Watson MD [address] [place] [address] Hematology and Oncology 09/25/17 Livier Ying, RN 09/25/17 11/22/20 Natalie Tian, RN Registered Nurse 09/25/17 Latha Ordoñez, PRODUCTION TROUBLESHOOTER-FARM ASSISTANT [address] [place] [address] [address]nd [place] [address] Oncology 09/25/17 Kary Logan, RN 09/25/17 11/22/20 Lelo Becerra, PRODUCTION TROUBLESHOOTER-MARKER MACHINE ATTENDANT [address] [place] [address] [place] [address] Family Medicine 09/25/17 11/22/20 Theodore Oswald PA-C [address] [place] [address] [place] [address] Physician Airway Traffic Controller 09/25/17 Meghan Jurado, DISTRIBUTION DISTRICT SUPERVISOR Block Captain 09/25/17 11/22/20 Leena Borden CREDIT AUTHORIZER Block Captain 09/25/17 Flaquita Manning, PharmD 09/25/17 Meghan Maya, PharmD 09/25/17 06/30/19 Aleah Giordano, PRODUCTION TROUBLESHOOTER-MARKER MACHINE ATTENDANT Family Medicine 09/25/17 11/22/20 Selma Garcia, VALERIA 10/20/17 11/22/20 Rody King, VALERIA 10/20/17 11/22/20 Aron Powell, VALERIA 10/20/17 06/30/19 Ligia Rivera MA 10/20/17 06/30/19 Ani Lira 10/20/17 11/22/20 Carolina Oglesby 10/20/17 Марина Lebron Editor [employer] Psychiat[employer] 10/20/17 08/10/18 Tarsha Cha APRN-MARKER MACHINE ATTENDANT [address] OF HEMATOLOGY & [place] [address] Nurse Practitioner Family 10/04/20 Socorro Galdamez APRN-CNP [address] DIV OF HEMATOLOGY & [place] [address] Nurse Practitioner 10/04/20 Jennifer Fung MD [address] DIV OF HEMATOLOGY & [place] [address] Hematology and Oncology 11/23/21 documented as of this encounter
[2024-11-30 00:40] VITALS: BP 131/94; PULSE 103; RESP 20; TEMP 36.8; O2SAT 96
[2024-11-30 01:00] LABS: Hematocrit 47.8 % (37.0-47.0); Hemoglobin 16.2 g/dL (12.0-15.0); Immature Granulocyte Percent A 0.2 % (0-0.5); Lymphocytes Absolute Auto 4.93 K/mm3 (0.9-3.2); Mean Corpuscular HGB Conc 33.9 g/dl (32-36); Mean Corpuscular Hemoglobin 28.9 pg (26-34); Mean Corpuscular Volume 85.2 fl (80-100); Nucleated Red Blood Cells Absolute Auto 0.000 K/mm3 (0.0-0.012); Nucleated Red Blood Cells Perc 0.0 % (0.0-0.2); Platelet Count Result 230 k/mm3 (150-375); Red Blood Count 5.61 M/mm3 (4.2-5.4); White Blood Count 13.5 K/mm3 (4.5-10.0)
--- OUTSIDE RECORDS SUMMARY | 2024-11-30 01:03 | XMS_ITS | Encounter Summary ---
Author Organization [facility] Address [address] [facility] [place] [address] Care Team Providers Care Audio Production Instructor Name Role Phone Unknown, Provider Primary Care Provider Unavaila Fawad Tony MD Unavailable [phone] Kary Logan RN Unavailable Unavailab Tyrell Reed Unavailable Unavailab Mally Edward MD Unavailable [phone] Angelica Watson MD Unavailable [phone] Livier Ying RN Unavailable Unavailable Natalie Tian RN Unavailable UnavailLatha Box BATCH MIXER-GASOLINE SERVICE ATTENDANT Unavailable [phone] Kary Logan RN Unavailable Unavailab Lelo Greene BATCH MIXER-CAGE SHIFT MANAGER Unavailable [phone] Theodore sOwald PA-C Unavailable Unavail able Meghan Alexander OPERATING COST CLERK Unavailable Unavailab Leena Escobedo LATHE SPOTTER Unavailable Unavailable Flaquita Manning PharmD Unavailable Unavaila Meghan EdwardsD Unavailable UnavailAleah Cormier BATCH MIXER-CAGE SHIFT MANAGER Unavailable [phone] Selma Garcia RN Unavailable Unavailable Rody King RN Unavailable UnavailAron Jolley RN Unavailable Unavailable Ligia Rivera MA Unavailable Unavailable Ani Lira Unavailable Unavailable Carolina Oglesby Unavailable Yana Lelo Lira MD Primary Care Provider [phone] Марина Lebron Unavailable Unavailable Tarsha Cha BATCH MIXER-CAGE SHIFT MANAGER Unavailable [phone] GaldamezSocorro BATCH MIXER-CAGE SHIFT MANAGER Unavailable [phone] Jennifer Fung MD Unavailable Encounter Details Date Type Department Care Team (Late st Contact Info) Description 09/14/2014 Lab Requisition [facility] - Lab Cytogenetics [address] [place] [address] Juanito Pimentel MD [address] [place], [place] [id number] AML (acute myeloblastic leukemia) Social History Tobacco Use Types Packs/Day Years Used Date Smoking Tobacco: Never Assessed Comments Unknown Sex and Gender Information Value Date Recorded Sex Assigned at Not on file 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 5 5:42 PM CDT [facility] CY[facility] LAB at 1742 CDT Disclaimer *This test was developed, and its performance characteristics determined by [facility] Molecular Cytogenetics Laboratory as required by CLIA [...] with cytogenetic findings. 5 5:42 PM CDT [facility] CY[facility]OM[facility] LAB Historical Cytogenomic Report [id number] from 08/01/2014 Results Analysis of 500 interphase [...] and its performance characteristics determined by [facility] Molecular Cytogenetics Laboratory as required by CLIA [...] with cytogenetic findings. . Historical Cytogenomic Report [id number] on 07/11/2014 Results Analysis of 500 interphase [...] to be of donor origin. at [phone] on 05/03/2014 Results: Fluorescence In-Situ Hybridization (FISH): Analysis of 500 interphase cells hybridized with specific labeled fluorescent probes*: break apart MLL probes* directed onto 11q23 showed the following results: nuc aidan (MLLx2)[467/500] Normal Interpretation: To rule out minimal residual disease of the previously identified clonal abnormality (see below;[id number]), FISH was performed using specific probes* as listed in the result section. FISH was negative indicating a possible disease remission. The previous study ([id number])showed a separation of the MLL signals in [...] onto 11q23 and 16q22, dual labeled probes* D5S23/M4X045 directed onto 5p15.2/5q31, dual labeled probes* CEP7/K6J170 directed onto 7 cent/7q31, dual labeled CEP8/D87Z387 directed onto 8cent/20q11.2, and dual labeled dual fusion ETO/AML1 directed onto 8q22/21q22 showed the following results: nuc aidan (EVI1x2)[196/200],(D 5S23,F2C211,EGR1)x2[ 197/200],(D7Z1,D7S48 6)x2[195/200],(CEP8, M91J312)x2[187/200], (ETO,AML1)x2[190/200 ],(MLLx2)(5'MLL sep 3'MLLx21)[85/100],(F OXO1x2)[192/200],(CB FBx2)[190/200] Abnormal [...] correlation is suggested. 5 5:42 PM CDT [facility] CYTOGENOMIC LAB Client Information [facility] - [id number] [facility] Lab Numbers: [id number] chrom, [id number] FISH 5 5:42 PM CDT [facility] CYTOGENOMIC LAB Other BONE MARROW SPECIMEN / Unknown 09/14/2014 09/14/2014 3:49 PM CDT Juanito Pimentel MD LAB - PATHOLOGY/CYTOLOGY MARICARMEN NEW Final Result [facility] CYTOGENOMIC LAB [facility] [place] [address] documented in this encounter Visit Diagnoses Diagnosis AML (acute myeloblastic leukemia) (HCC) Acute myeloid leukemia, without mention of having achieved remission documented in this encounter Additional Health Concerns Infection Onset Date Last Indicated Resolved Time COVID-19 Under Investigation 01/27/2022 01/27/2022 01/27/2022 9:08 PM CDT COVID-19 Under Investigation 01/28/2022 01/28/2022 01/28/2022 3:39 PM CDT documented as of this encounter Care Teams Audio Production Instructor Relationship Specialty Start Date End Date Unknown, Provider PCP - General 08/18/17 10/19/17 Lelo Lopez MD [address] [place] [address] PCP - General 10/20/17 Fawad Ruffin MD Hematology and Oncology 09/23/17 Kary Logan, RN 09/23/17 09/24/17 Emily Tyrellalin Bonilla Update Information Referring Physician Oncology 09/25/17 Mally Rogers MD [facility] [place] [address] Hematology and Oncology 09/25/17 Angelica Watson MD [address] [place] [address] Hematology and Oncology 09/25/17 Livier Ying, RN 09/25/17 11/22/20 Natalie Tian, RN Registered Nurse 09/25/17 Latha Ordoñez, BATCH MIXER-GASOLINE SERVICE ATTENDANT [address] [place] [address] 2[address] [place] [address] Oncology 09/25/17 Kary Logan, RN 09/25/17 11/22/20 Lelo Becerra, BATCH MIXER-CAGE SHIFT MANAGER [address] [place] [address] [place] [address] Family Medicine 09/25/17 11/22/20 Theodore Oswald PA-C [address] [place] [address] [place] [address] Physician Coremaking Machine Operator 09/25/17 Meghan Jurado, OPERATING COST CLERK Store Clerk Checker 09/25/17 11/22/20 Leena Borden LATHE SPOTTER Store Clerk Checker 09/25/17 Flaquita Manning, PharmD 09/25/17 Meghan Maya, PharmD 09/25/17 06/30/19 Aleah Giordano, BATCH MIXER-CAGE SHIFT MANAGER Family Medicine 09/25/17 11/22/20 Selma Garcia, VALERIA 10/20/17 11/22/20 Rody King, VALERIA 10/20/17 11/22/20 Aorn Powell, VALERIA 10/20/17 06/30/19 Ligia Rivera MA 10/20/17 06/30/19 Ani Lira 10/20/17 11/22/20 Carolina Oglesby 10/20/17 Марина Lebron Belt Molder Psychiatry 10/20/17 08/10/18 Tarsha Cha APRN-CAGE SHIFT MANAGER [address] DIV OF HEMATOLOGY & [place] [address] Nurse Practitioner Family 10/04/20 Socorro Galdamez APRN-CNP [address] DIV OF HEMATOLOGY & [place] [address] Nurse Practitioner 10/04/20 Jennifer Fung MD [address] DIV OF HEMATOLOGY & [place] [address] Hematology and Oncology 11/23/21 documented as of this encounter
--- OUTSIDE RECORDS SUMMARY | 2024-11-30 01:03 | XMS_ITS | Encounter Summary ---
Author Organization [facility] Address [address] [facility] [place] [address] Care Team Providers Care Crop Puller Name Role Phone Unknown, Provider Primary Care Provider Unavaila Fawad Tony MD Unavailable [phone] Kary Logan RN Unavailable Unavailab Tyrell Reed Unavailable Unavailab Mally Edward MD Unavailable [phone] Angelica Watson MD Unavailable [phone] Livier Ying RN Unavailable Unavailable Natalie Tian RN Unavailable UnavailLatha Box MEAT CUTTING BLOCK REPAIRER-SOCIOLOGY FACULTY MEMBER Unavailable [phone] Kary Logan RN Unavailable Unavailab Lelo Greene MEAT CUTTING BLOCK REPAIRER-FISHER SPEAR Unavailable [phone] Theodore Oswald PA-C Unavailable Unavail able Meghan Alexander BALLOON DIPPER Unavailable Unavailab Leena Escobedo SOUND DESIGNER Unavailable Unavailable Flaquita Manning PharmD Unavailable Unavaila Meghan EdwardsD Unavailable UnavailAleah Cormier MEAT CUTTING BLOCK REPAIRER-FISHER SPEAR Unavailable [phone] Selma Garcia RN Unavailable Unavailable Rody King RN Unavailable UnavailAron Jolley RN Unavailable Unavailable Ligia Rivera MA Unavailable Unavailable Ani Lira Unavailable Unavailable Carolina Oglesby Unavailable Yana Lelo Lira MD Primary Care Provider [phone] BernardinoМарина Unavailable Unavailable Tarsha Cha MEAT CUTTING BLOCK REPAIRER-FISHER SPEAR Unavailable [phone] GaldamezSocorro MEAT CUTTING BLOCK REPAIRER-FISHER SPEAR Unavailable [phone] Jennifer Fung MD Unavailable Encounter Details Date Type Department Care Team (Late st Contact Info) Description 12/14/2014 Lab Requisition [facility] - Lab Cytogenetics [address] [place] [address] Fawad Ruffin MD [address] [place] [address] Rd [address] [place] [address] AML (acute myeloblastic leukemia) Social History Tobacco Use Types Packs/Day Years Used Date Smoking Tobacco: Never Assessed Comments Unknown Sex and Gender Information Value Date Recorded Sex Assigned at Not on file 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 5 10:56 AM CDT [facility] at 1056 CDT Disclaimer *This test was developed, and its performance characteristics determined by [facility] as required by [...] with cytogenetic findings. 5 10:56 AM CDT [facility] Historical Cytogenomic Report Historical Cytogenomic Report [id number] on 10/13/2014: Results Analysis of 500 interphase cells from the bone marrow hybridized to dual labeled X and Y specific alpha satellite probes* showed the following results: nuc aidan(DXZ1x2)[3500]// (DXZ1,DYZ3)x1[497/50 0] 99% donor [id number] on 09/19/2014: Results Analysis of 500 interphase cells from the bone marrow hybridized to dual labeled X and Y specific alpha satellite probes* showed the following results: nuc aidan //(DXZ1,DYZ3)x1[498/ 500] 99% donor --------- [id number] on 09/15/2014 Results: Analysis of 500 interphase cells from the bone marrow hybridized to dual labeled X and Y specific alpha satellite probes* showed the following results: nuc aidan //(DXZ1,DYZ3)x1[497/ 500] 99% donor [id number] on 08/02/2014 Results: Analysis of 500 interphase cells from the bone marrow hybridized to dual labeled X and Y specific alpha satellite probes* showed the following results: nuc aidan //(DXZ1,DYZ3)x1[499/ 500] 99% donor [id number] on 07/13/2014 Results: Analysis of 500 interphase cells from the peripheral oncology blood hybridized to dual labeled X and Y specific alpha satellite probes* showed the following results: nuc aidan(DXZ1x2)[2500]// (DXZ1,DYZ3)x1[495/50 0] 99% donor [id number] on 06/27/2014 Results: Analysis of 500 interphase cells from the peripheral oncology blood hybridized to dual labeled X and Y specific alpha satellite probes* showed the following results: nuc aidan(DXZ1x2)[5/500]// (DXZ1,DYZ3)x1[493/50 0] 98% donor [id number] on 05/09/2014 Results: Fluorescence In-Situ Hybridization (FISH): Analysis of 500 interphase cells hybridized with specific labeled fluorescent probes*: break apart MLL probes* directed onto 11q23 showed the following results: nuc aidan (MLLx2)[467/500] Normal Interpretation: To rule out minimal residual disease of the previously identified clonal abnormality (see below;[id number]), FISH was performed using specific probes* as listed in the result section. FISH was negative indicating a possible disease remission. The previous study ([id number])showed a separation of the MLL signals in less than 1% of cells. Clinicopathological correlation is suggested. Last verified: 05/09/2014 1715 by Vivian Ho, PhD [facility] on 04/20/2014 Results: Fluorescence In-Situ Hybridization (FISH): [...] onto 11q23 and 16q22, dual labeled probes* D5S23/I8Z454 directed onto 5p15.2/5q31, dual labeled probes* CEP7/U9T819 directed onto 7 cent/7q31, dual labeled CEP8/P59W608 directed onto 8cent/20q11.2, and dual labeled dual fusion ETO/AML1 directed onto 8q22/21q22 showed the following results: nuc aidan (EVI1x2)[196/200],(D 5S23,T4Q808,EGR1)x2[ 197/200],(D7Z1,D7S48 6)x2[195/200],(CEP8, T75T476)x2[187/200], (ETO,AML1)x2[190/200 ],(MLLx2)(5'MLL sep 3'MLLx21)[85/100],(F OXO1x2)[192/200],(CB FBx2)[190/200] Abnormal [...] 04/07/2014 at 1306 5 10:56 AM CDT [facility] Client Information [facility] - [id number] [facility] Lab Number: [id number] Chroms; [id number] FISH 5 10:56 AM CDT [facility] Other BONE MARROW SPECIMEN / Unknown 12/14/2014 1:45 PM CDT 12/14/2014 3:02 PM CDT us Fawad Ruffin MD LAB - PATHOLOGY/CYTOLOGY O RDERABLES Final Result [facility] [address] [place] [address] documented in this encounter Visit Diagnoses Diagnosis AML (acute myeloblastic leukemia) (HCC) Acute myeloid leukemia, without mention of having achieved remission documented in this encounter Additional Health Concerns Infection Onset Date Last Indicated Resolved Time COVID-19 Under Investigation 01/27/2022 01/27/2022 01/27/2022 9:08 PM CDT COVID-19 Under Investigation 01/28/2022 01/28/2022 01/28/2022 3:39 PM CDT documented as of this encounter Care Teams Crop Puller Relationship Specialty Start Date End Date Unknown, Provider PCP - General 08/18/17 10/19/17 Lelo Lopez MD [address] [place], [place] [id number] PCP - General 10/20/17 Fawad Ruffin MD Hematology and Oncology 09/23/17 Kary Logan RN 09/23/17 09/24/17 Tyrell Diaz Update Information Referring Physician Oncology 09/25/17 Mally Rogers MD [address] [place] [address] Hematology and Oncology 09/25/17 Angelica Watson MD [address] [place] [address] Hematology and Oncology 09/25/17 Livier Ying, RN 09/25/17 11/22/20 Natalie Tian, RN Registered Nurse 09/25/17 Latha Ordoñez APRN-SOCIOLOGY FACULTY MEMBER [address] [place] [address] [address] FLO[address] [facility] [place] [address] Oncology 09/25/17 Kary Logan RN 09/25/17 11/22/20 Lelo Becerra APRN-FISHER SPEAR [address] [facility] 2nd [place] [address] [facility] Medicine 09/25/17 11/22/20 Theodore Oswald PA-C [address] [facility] 2nd [place] [address] Physician Department Assistant 09/25/17 Meghan Jurado, [facility] Brine Well Operator 09/25/17 11/22/20 Leena Borden [facility] Brine Well Operator 09/25/17 Flaquita Manning, PharmD 09/25/17 Meghan Maya, PharmD 09/25/17 06/30/19 Aleah Giordano, MEAT CUTTING BLOCK REPAIRER-[facility] Medicine 09/25/17 11/22/20 Selma Garcia, RN 10/20/17 11/22/20 Rody King, VALERIA 10/20/17 11/22/20 Aron Powell, VALERIA 10/20/17 06/30/19 Ligia Rivera MA 10/20/17 06/30/19 Ani Lira 10/20/17 11/22/20 Carolina Oglesby 10/20/17 Марина [employer] Facility Manager Psychiatry 10/20/17 08/10/18 Tarsha Cha MEAT CUTTING BLOCK REPAIRER-[facility] [address] DIV OF HEMATOLOGY & [place] [address] Nurse Practitioner Family 10/04/20 Socorro Galdamez MEAT CUTTING BLOCK REPAIRER-FISHER SPEAR [address] DIV OF HEMATOLOGY & [place] [address] Nurse Practitioner 10/04/20 Jennifer Fung MD [address] DIV OF HEMATOLOGY & [place] [address] Hematology and Oncology 11/23/21 documented as of this encounter
--- OUTSIDE RECORDS SUMMARY | 2024-11-30 01:03 | XMS_ITS | Encounter Summary ---
Author Organization [facility] Address [address] [facility] [place] [address] Care Team Providers Care Endoscopy Specialty Technician Name Role Phone Unknown, Provider Primary Care Provider Unavaila Fawad Tony MD Unavailable [phone] Kary Logan RN Unavailable Unavailab Tyrell Reed Unavailable Unavailab Mally Edward MD Unavailable [phone] Angelica Watson MD Unavailable [phone] Livier Ying RN Unavailable Unavailable Natalie Tian RN Unavailable UnavailLatha Box METAL TANK ERECTOR-BALL MAKER Unavailable [phone] Kary Logan RN Unavailable Unavailab Lelo Greene METAL TANK ERECTOR-PROJECTOR OPERATOR Unavailable [phone] Theodore Oswald PA-C Unavailable Unavail able Meghan Alexander PARTY PLAN SALESPERSON Unavailable Unavailab Leena Escobedo EVIDENCE SPECIALIST Unavailable Unavailable Flaquita Manning PharmD Unavailable Unavaila Meghan EdwardsD Unavailable UnavailAleah Cormier METAL TANK ERECTOR-PROJECTOR OPERATOR Unavailable [phone] Selma Garcia RN Unavailable Unavailable Rody King RN Unavailable UnavailAron Jolley RN Unavailable Unavailable Ligia Rivera MA Unavailable Unavailable Ani Lira Unavailable Unavailable Carolina Oglesby Unavailable Yana Lelo Lira MD Primary Care Provider [phone] BernardinoМарина Unavailable Unavailable SemajTarsha betancur METAL TANK ERECTOR-PROJECTOR OPERATOR Unavailable [phone] DeniceSocorro METAL TANK ERECTOR-PROJECTOR OPERATOR Unavailable [phone] Jennifer Fung MD Unavailable Encounter Details Date Type Department Care Team (Late st Contact Info) Description 10/12/2014 Lab Requisition [facility] - Lab Cytogenetics [address] [place] [address] Mally Rogers MD [address] [facility] [place] [address] AML (acute myeloblastic leukemia) Social History Tobacco Use Types Packs/Day Years Used Date Smoking Tobacco: Never Assessed Comments Unknown Sex and Gender Information Value Date Recorded Sex Assigned at Not on file Legal Sex Female 2:19 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 5 2:28 PM T [facility] at 1428 CDT Disclaimer *This test was developed, and its performance characteristics determined by [facility] as required by CLIA '88 Regulations. It has not been cleared or approved for specific uses by the U.S. Food and Drug Administration. The FDA has determined that such clearance or approval is not necessary. This test is used for clinical purposes. It should not be reported as investigational or for research. 5 2:28 PM CDT [facility] Historical Cytogenomic Report [id number] on 09/19/2014: Results Analysis of 500 interphase [...] developed, and its performance characteristics determined by [facility] Cytogenetics Laboratory as required by [...] with cytogenetic findings. . Historical Cytogenomic Report [id number] on 09/15/2014 Results: Analysis of 500 interphase [...] verified: 09/15/2014 1742 by Vivian Ho, PhD [facility] [id number] on 08/02/2014 Results: Analysis of 500 interphase [...] verified: 08/02/2014 1158 by Megan Larkin, PhD [facility] [id number] on 07/13/2014 Results: Analysis of 500 interphase [...] verified: 07/13/2014 1330 by Megan Larkin, PhD [facility] [id number] on 06/27/2014 Results: Analysis of 500 interphase [...] verified: 06/27/2014 1348 by Megan Larkin, PhD [facility] [id number] on 05/09/2014 Results: Fluorescence In-Situ Hybridization (FISH): Analysis of 500 interphase cells hybridized with specific labeled fluorescent probes*: break apart MLL probes* directed onto 11q23 showed the following results: nuc aidan (MLLx2)[467/500] Normal Interpretation: To rule out minimal residual disease of the previously identified clonal abnormality (see below;[id number]), FISH was performed using specific probes* as listed in the result section. FISH was negative indicating a possible disease remission. The previous study ([id number])showed a separation of the MLL signals in less than 1% of cells. Clinicopathological correlation is suggested. Last verified: 05/09/2014 1715 by Vivian Ho, PhD [facility] on 04/20/2014 Results: Fluorescence In-Situ Hybridization (FISH): [...] onto 11q23 and 16q22, dual labeled probes* D5S23/J3N657 directed onto 5p15.2/5q31, dual labeled probes* CEP7/E8L065 directed onto 7 cent/7q31, dual labeled CEP8/D10N117 directed onto 8cent/20q11.2, and dual labeled dual fusion ETO/AML1 directed onto 8q22/21q22 showed the following results: nuc aidan (EVI1x2)[196/200],(D 5S23,O9H761,EGR1)x2[ 197/200],(D7Z1,D7S48 6)x2[195/200],(CEP8, F23E083)x2[187/200], (ETO,AML1)x2[190/200 ],(MLLx2)(5'MLL sep 3'MLLx21)[85/100],(F OXO1x2)[192/200],(CB FBx2)[190/200] Abnormal [...] on 04/07/2014 at 1306 . Client Information [facility] - [id number] [facility] Lab Numbers: [id number] FISH 5 2:28 PM CDT [facility] Client Information [facility] - [id number] Lab# [id number]; [id number] Chroms 5 2:28 PM CDT [facility] Other BONE MARROW SPECIMEN / Unknown 10/12/2014 10/12/2014 2:42 PM CDT us Mally Rogers MD LAB - PATHOLOGY/CYTOLOGY ORDERA BLES Final Result [facility] [address] [place] [address] documented in this encounter Visit Diagnoses Diagnosis AML (acute myeloblastic leukemia) (HCC) Acute myeloid leukemia, without mention of having achieved remission documented in this encounter Additional Health Concerns Infection Onset Date Last Indicated Resolved Time COVID-19 Under Investigation 01/27/2022 01/27/2022 01/27/2022 9:08 PM CDT COVID-19 Under Investigation 01/28/2022 01/28/2022 01/28/2022 3:39 PM CDT documented as of this encounter Care Teams Endoscopy Specialty Technician Relationship Specialty Start Date End Date Unknown, Provider PCP - General 08/18/17 10/19/17 Lelo Lopez MD [address] [place] [address] PCP - General 10/20/17 Fawad Ruffin MD Hematology and Oncology 09/23/17 Kary Logan, RN 09/23/17 09/24/17 Tyrell Diaz Update Information Referring Physician Oncology 09/25/17 Mally Rogers MD [address] [place] [address] Hematology and Oncology 09/25/17 Angelica Watson MD [address] [place] [address] Hematology and Oncology 09/25/17 Livier Ying, RN 09/25/17 11/22/20 Natalie Tian, RN Registered Nurse 09/25/17 Latha Ordoñez, METAL TANK ERECTOR-BALL MAKER [address] [facility] 2nd [place] [address] Oncology 09/25/17 Kary Logan, RN 09/25/17 11/22/20 Lelo Becerra, JOSÉ MIGUEL-PROJECTOR OPERATOR [address] [place] [address] Family Medicine 09/25/17 11/22/20 Theodore Oswald PA-C [address] [place] [address] Physician Police Matron 09/25/17 0 Meghan Alexander, PARTY PLAN SALESPERSON Tank Cleaning Supervisor 09/25/17 11/22/20 Leena Borden, EVIDENCE SPECIALIST Tank Cleaning Supervisor 09/25/17 Flaquita Manning, PharmD 09/25/17 Meghan Maya, PharmD 09/25/17 06/30/19 Aleah Giordano, METAL TANK ERECTOR-PROJECTOR OPERATOR Family Medicine 09/25/17 11/22/20 Selma Garcia, RN 10/20/17 11/22/20 Rody King, RN 10/20/17 11/22/20 Aron Powell, VALERIA 10/20/17 06/30/19 Ligia Rivera MA 10/20/17 06/30/19 Ani Lira 10/20/17 11/22/20 Carolina Oglesby 10/20/17 Марина Lebron Meat Carver Psychiatry 10/20/17 08/10/18 Tarsha Cha, METAL TANK ERECTOR-PROJECTOR OPERATOR [address] DIV OF HEMATOLOGY & [place] [address] Nurse Practitioner Family 10/04/20 Socorro Galdamez, METAL TANK ERECTOR-PROJECTOR OPERATOR [address] DIV OF HEMATOLOGY & [place] [address] Nurse Practitioner 10/04/20 Jennifer Fung MD [address] DIV OF HEMATOLOGY & [place] [address] Hematology and Oncology 11/23/21 documented as of this encounter
--- OUTSIDE RECORDS SUMMARY | 2024-11-30 01:03 | XMS_ITS | Encounter Summary ---
Author Organization [facility] Address [address] [place] [address] Care Team Providers Care Hoist Cylinder Loader Name Role Phone Unknown, Provider Primary Care Provider Unavaila Fawad Tony MD Unavailable [phone] Kary Logan RN Unavailable Unavailab Tyrell Reed Unavailable Unavailab Mally Edward MD Unavailable [phone] Angelica Watson MD Unavailable [phone] Livier Ying RN Unavailable Unavailable Natalie Tian RN Unavailable UnavailLatha Box PLACEMENT SECRETARY-PLUMBER APPRENTICE Unavailable [phone] Kary Logan RN Unavailable Unavailab Lelo Greene PLACEMENT SECRETARY-ARBOREAL SCIENTIST Unavailable [phone] Theodore Oswald PA-C Unavailable Unavail able Meghan Alexander BALL ENDER Unavailable Unavailab Leena Escobedo BURRING WHEEL OPERATOR Unavailable Unavailable Flaquita Manning PharmD Unavailable Unavaila Meghan EdwardsD Unavailable UnavailAleah Cormier PLACEMENT SECRETARY-ARBOREAL SCIENTIST Unavailable [phone] Selma Garcia RN Unavailable Unavailable Rody King RN Unavailable UnavailAron Jolley RN Unavailable Unavailable Ligia Rivera MA Unavailable Unavailable Ani Lira Unavailable Unavailable Carolina Oglesby Unavailable Yana Lelo Lira MD Primary Care Provider [phone] BernardinoМарина Unavailable Unavailable Tarsha Cha PLACEMENT SECRETARY-ARBOREAL SCIENTIST Unavailable [phone] GaldamezSocorro PLACEMENT SECRETARY-ARBOREAL SCIENTIST Unavailable [phone] Jennifer Fung MD Unavailable Encounter Details Date Type Department Care Team (Late st Contact Info) Description 06/24/2014 Lab Requisition [facility] - Lab Cytogenetics [address] [place] [address] Fawad Ruffin MD [address] [place] [address] Rd [address] [place] [address] AML (acute myeloblastic leukemia) Social History Tobacco Use Types Packs/Day Years Used Date Smoking Tobacco: Never Assessed Comments Unknown Sex and Gender Information Value Date Recorded Sex Assigned at Not on file Legal Sex Female 2:19 PM GROUND OPERATIONS SUPERINTENDENT Gender Identity Not on file Sexual Orientation Not on file documented as of this encounter Plan of Treatment Not on file documented as of this encounter Procedures Procedure Name Priority Date/Time Associated Diagnosis Comments CYTOGENETICS CANCER PANEL Routine 06/24/2014 10:31 AM GROUND OPERATIONS SUPERINTENDENT AML (acute myeloblastic leukemia) [ICD-9-CM] documented in this encounter Results * CYTOGENETICS CANCER PANEL (06/24/2014 10:31 AM GROUND OPERATIONS SUPERINTENDENT) Indication for Study History of AML(Post Transplant 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 5 1:48 PM [facility] CYTOGENOMIC LAB at 1348 GROUND OPERATIONS SUPERINTENDENT Disclaimer *This test was developed, and its performance characteristics determined by [facility] Molecular Cytogenetics Laboratory as required by [...] pathology with cytogenetic findings. 5 1:48 PM [facility] CYTOGENOMIC LAB Historical Cytogenomic Report WG [...] onto 11q23 and 16q22, dual labeled probes* D5S23/Y1F190 directed onto 5p15.2/5q31, dual labeled probes* CEP7/G0I422 directed onto 7 cent/7q31, dual labeled CEP8/J48M523 directed onto 8cent/20q11.2, and dual labeled dual fusion ETO/AML1 directed onto 8q22/21q22 showed the following results: nuc aidan (EVI1x2)[196/200],(D 5S23,R3D843,EGR1)x2[ 197/200],(D7Z1,D7S48 6)x2[195/200],(CEP8, L99T259)x2[187/200], (ETO,AML1)x2[190/200 ],(MLLx2)(5'MLL sep 3'MLLx21)[85/100],(F OXO1x2)[192/200],(CB FBx2)[190/200] Abnormal [...] on 04/07/2014 at 1306 5 1:48 PM [facility] CYTOGENOMIC LAB Client Information [facility] - [id number] [facility] Lab Number: [id number]; [id number] 5 1:48 PM GROUND OPERATIONS SUPERINTENDENT [facility] CYTOGENOMIC LAB Other BLOOD SPECIMEN / Unknown 06/24/2014 10:31 AM GROUND OPERATIONS SUPERINTENDENT 06/24/2014 10:31 AM GROUND OPERATIONS SUPERINTENDENT us Fawad Ruffin MD LAB - PATHOLOGY/CYTOLOGY O RDERABLES Final Result [facility] CYTOGENOMIC LAB [address] [place] [address] documented in this encounter Visit Diagnoses Diagnosis AML (acute myeloblastic leukemia) (HCC) Acute myeloid leukemia, without mention of having achieved remission documented in this encounter Additional Health Concerns Infection Onset Date Last Indicated Resolved Time COVID-19 Under Investigation 01/27/2022 01/27/2022 01/27/2022 9:08 PM CDT COVID-19 Under Investigation 01/28/2022 01/28/2022 01/28/2022 3:39 PM CDT documented as of this encounter Care Teams Hoist Cylinder Loader Relationship Specialty Start Date End Date Unknown, Provider PCP - General 08/18/17 10/19/17 Lelo Lopez MD [address] [place] [address] PCP - General 10/20/17 Fawad Ruffin MD Hematology and Oncology 09/23/17 Kary Logan, RN 09/23/17 09/24/17 Tyrell Diaz Update Information Referring Physician Oncology 09/25/17 Mally Rogers MD [address] [place] [address] Hematology and Oncology 09/25/17 Angelica Watson MD [address] [place] [address] Hematology and Oncology 09/25/17 Livier Ying, RN 09/25/17 11/22/20 Natalie Tian, RN Registered Nurse 09/25/17 Latha Ordoñez, JOSÉ MIGUEL-PLUMBER APPRENTICE [address] [facility] 2nd [place] [address] Oncology 09/25/17 Kary Logan, RN 09/25/17 11/22/20 Lelo Becerra APRN-ARBOREAL SCIENTIST [address] [facility] 2nd [place] [address] Family Medicine 09/25/17 11/22/20 Theodore Oswald PA-C [address] 2nd [place] [address] Physician Utility Teller 09/25/17 0 Meghan Alexander, [facility] Flower Machine Operator 09/25/17 11/22/20 Leena Borden, [facility] Flower Machine Operator 09/25/17 Flaquita Manning, PharmD 09/25/17 Meghan Maya, PharmD 09/25/17 06/30/19 Aleah Giordano, PLACEMENT SECRETARY-ARBOREAL SCIENTIST Family Medicine 09/25/17 11/22/20 Selma Garcia, RN 10/20/17 11/22/20 Rody King, VALERIA 10/20/17 11/22/20 Aron Powell, VALERIA 10/20/17 06/30/19 Ligia Rivera MA 10/20/17 06/30/19 Ani Lira 10/20/17 11/22/20 Carolina Oglesby 10/20/17 Марина Lebron Managed Care Coordinator Psychiatry 10/20/17 08/10/18 Tarsha Cha PLACEMENT SECRETARY-ARBOREAL SCIENTIST [address] DIV OF HEMATOLOGY & [place] [address] Nurse Practitioner Family 10/04/20 Socorro Galdamez PLACEMENT SECRETARY-ARBOREAL SCIENTIST [address] DIV OF HEMATOLOGY & [place] [address] Nurse Practitioner 10/04/20 Jennifer Fung MD [address] DIV OF HEMATOLOGY & [place] [address] Hematology and Oncology 11/23/21 documented as of this encounter
--- OUTSIDE RECORDS SUMMARY | 2024-11-30 01:03 | XMS_ITS | Encounter Summary ---
Author Organization [facility] Address [address] [facility] [place] [address] Care Team Providers Care Clerk Name Role Phone Unknown, Provider Primary Care Provider Unavaila Fawad Tony MD Unavailable [phone] Kary Logan RN Unavailable Unavailab Tyrell Reed Unavailable Unavailab Mally Edward MD Unavailable [phone] Angelica Watson MD Unavailable [phone] Livier Ying RN Unavailable Unavailable Natalie Tian RN Unavailable UnavailLatha Box WIRE TRANSFER CLERK-ORTHOPEDIC SPECIALIST Unavailable [phone] Kary Logan RN Unavailable Unavailab Lelo Greene WIRE TRANSFER CLERK-ELECTRODE TURNER AND FINISHER Unavailable [phone] Theodore Oswald PA-C Unavailable Unavail able Meghan Alexander FAMILY MANAGER Unavailable Unavailab Leena Escobedo NICKER Unavailable Unavailable Flaquita Manning PharmD Unavailable Unavaila Meghan EdwardsD Unavailable UnavailAleah Cormier WIRE TRANSFER CLERK-ELECTRODE TURNER AND FINISHER Unavailable [phone] Selma Garcia RN Unavailable Unavailable Rody King RN Unavailable UnavailAron Jolley RN Unavailable Unavailable Ligia Rivera MA Unavailable Unavailable Ani Lira Unavailable Unavailable Carolina Oglesby Unavailable Yana Lelo Lira MD Primary Care Provider [phone] BernardinoМарина Unavailable Unavailable Tarsha Cha WIRE TRANSFER CLERK-ELECTRODE TURNER AND FINISHER Unavailable [phone] GaldamezSocorro WIRE TRANSFER CLERK-ELECTRODE TURNER AND FINISHER Unavailable [phone] Jennifer Fung MD Unavailable Encounter Details Date Type Department Care Team (Late st Contact Info) Description 04/06/2014 Lab Requisition [facility] - Lab Cytogenetics [address] [place] [address] Thanh Raymond MD [address] [place], [place] [id number] AML (acute myeloblastic leukemia) Social History Tobacco Use Types Packs/Day Years Used Date Smoking Tobacco: Never Assessed Comments Unknown Sex and Gender Information Value Date Recorded Sex Assigned at Not on file Legal Sex Female 2:19 PM PALLIATIVE CARE PHYSICIAN Gender Identity Not on file Sexual Orientation Not on file documented as of this encounter Plan of Treatment Not on file documented as of this encounter Procedures Procedure Name Priority Date/Time Associated Diagnosis Comments CYTOGENETICS CANCER PANEL Routine 04/06/2014 2:25 PM PALLIATIVE CARE PHYSICIAN AML (acute myeloblastic leukemia) [ICD-9-CM] documented in this encounter Results * CYTOGENETICS CANCER PANEL (04/06/2014 2:25 PM PALLIATIVE CARE PHYSICIAN) Indication for Study Suspected AML- pretreatment FISH AML panel and BCR/ABL1 requested by physician 4 2:01 PM PALLIATIVE CARE PHYSICIAN [facility] MOLECULAR CYTOGENOMIC LAB Results Cytogenetics Fluorescence In-Situ [...] onto 11q23 and 16q22, dual labeled probes* D5S23/H4T395 directed onto 5p15.2/5q31, dual labeled probes* CEP7/F3V090 directed onto 7 cent/7q31, dual labeled CEP8/L60O825 directed onto 8cent/20q11.2, and dual labeled dual fusion ETO/AML1 directed onto 8q22/21q22 showed the following results: nuc aidan (EVI1x2)[196/200],(D 5S23,Z1E594,EGR1)x2[ 197/200],(D7Z1,D7S48 6)x2[195/200],(CEP8, X47R673)x2[187/200], (ETO,AML1)x2[190/200 ],(MLLx2)(5'MLL sep 3'MLLx21)[85/100],(F OXO1x2)[192/200],(CB FBx2)[190/200] Abnormal showing MLL abnormality in 85% of cells. 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 4 2:01 PM PALLIATIVE CARE PHYSICIAN [facility] MOLECULAR CYTOGENOMIC LAB at 1401 PALLIATIVE CARE PHYSICIAN Preliminary result electronically signed by Megan Larkin, PhD [facility] on 04/08/2014 at 1533 PALLIATIVE CARE PHYSICIAN Preliminary result electronically signed by Megan Larkin, PhD [facility] on 04/07/2014 at 1306 PALLIATIVE CARE PHYSICIAN Disclaimer *This test was developed, and its performance characteristics determined by [facility] Molecular Cytogenetics Laboratory as required [...] pathology with cytogenetic findings. 4 2:01 PM PALLIATIVE CARE PHYSICIAN [facility]CULAR CYTOGENOMIC LAB Other BONE MARROW SPECIMEN / Unknown 04/06/2014 2:25 PM PALLIATIVE CARE PHYSICIAN 04/06/2014 2:26 PM PALLIATIVE CARE PHYSICIAN Thanh Raymond MD LAB - PATHOLOGY/CYTOLOGY ORDERA BLES Final Result [facility] CYTOGENOMIC LAB [address] [place] [address] documented in this encounter Visit Diagnoses Diagnosis AML (acute myeloblastic leukemia) (HCC) Acute myeloid leukemia, without mention of having achieved remission documented in this encounter Additional Health Concerns Infection Onset Date Last Indicated Resolved Time COVID-19 Under Investigation 01/27/2022 01/27/2022 01/27/2022 9:08 PM CDT COVID-19 Under Investigation 01/28/2022 01/28/2022 01/28/2022 3:39 PM CDT documented as of this encounter Care Teams Clerk Relationship Specialty Start Date End Date Unknown, Provider PCP - General 08/18/17 10/19/17 Lelo Lopez MD [address] [place], [place] [id number] PCP - General 10/20/17 Fawad Ruffin MD Hematology and Oncology 09/23/17 Kary Logan, RN 09/23/17 09/24/17 Eimly Tyrellalin Bonilla Update Information Referring Physician Oncology 09/25/17 Mally Rogers MD [facility] [place] [address] Hematology and Oncology 09/25/17 Angelica Watson MD [facility] [place] [address] Hematology and Oncology 09/25/17 Livier Ying, RN 09/25/17 11/22/20 Natalie Tian, RN Registered Nurse 09/25/17 Latha Ordoñez, WIRE TRANSFER CLERK-ORTHOPEDIC SPECIALIST [address] [place], [place] [address]TA [facility] [address] [address] Oncology 09/25/17 Kary Logan, RN 09/25/17 11/22/20 Lelo Becerra, WIRE TRANSFER CLERK-ELECTRODE TURNER AND FINISHER [address] [place] [address] 2nd [place] [address] Family Medicine 09/25/17 11/22/20 Theodore Oswald PA-C [address] [place] [address] 2nd [place] [address] Physician Manufacturing Teacher 09/25/17 0 Meghan Alexander, FAMILY MANAGER Rv Body Mechanic 09/25/17 11/22/20 Leena Borden, NICKER Rv Body Mechanic 09/25/17 Flaquita Manning, PharmD 09/25/17 Meghan Maya, PharmD 09/25/17 06/30/19 Aleah Giordano, WIRE TRANSFER CLERK-ELECTRODE TURNER AND FINISHER Family Medicine 09/25/17 11/22/20 Selma Garcia, VALERIA 10/20/17 11/22/20 Rody King, VALERIA 10/20/17 11/22/20 Aron Powell, VALERIA 10/20/17 06/30/19 Ligia Rivera MA 10/20/17 06/30/19 Ani Lira 10/20/17 11/22/20 Carolina Oglesby 10/20/17 Марина Lebron Yarn Carrier Psychiatry 10/20/17 08/10/18 Tarsha Cha APRN-ELECTRODE TURNER AND FINISHER [address] DIV OF HEMATOLOGY & [place] [address] Nurse Practitioner Family 10/04/20 Socorro Galdamez APRN-ELECTRODE TURNER AND FINISHER [address] DIV OF HEMATOLOGY & [place] [address] Nurse Practitioner 10/04/20 Jennifer Fung MD [address] DIV OF HEMATOLOGY & [place] [address] Hematology and Oncology 11/23/21 documented as of this encounter
--- OUTSIDE RECORDS SUMMARY | 2024-11-30 01:03 | XMS_ITS | Encounter Summary ---
Author Organization [facility] Address [address] [facility] [place] [address] Care Team Providers Care Rnp Name Role Phone Unknown, Provider Primary Care Provider Unavaila Fawad Tony MD Unavailable [phone] Kary Logan RN Unavailable Unavailab Tyrell Reed Unavailable Unavailab Mally Edward MD Unavailable [phone] Angelica Watson MD Unavailable [phone] Livier Ying RN Unavailable Unavailable Natalie Tina RN Unavailable UnavailLatha Box YOUTH AGENT-PROFESSOR OF SPORT MANAGEMENT Unavailable [phone] Kary Logan RN Unavailable Unavailab Lelo Greene YOUTH AGENT-MONUMENTAL STONEMASON Unavailable [phone] Theodore Oswald PA-C Unavailable Unavail able Meghan Alexander MANAGER BODY Unavailable Unavailab Leena Escobedo JET BLADE POLISHER Unavailable Unavailable Flaquita Manning PharmD Unavailable Unavaila Meghan EdwardsD Unavailable UnavailAleah Cormier YOUTH AGENT-MONUMENTAL STONEMASON Unavailable [phone] Selma aGrcia RN Unavailable Unavailable Rody King RN Unavailable UnavailAron Jolley RN Unavailable Unavailable Ligia Rivera MA Unavailable Unavailable Ani Lira Unavailable Unavailable Carolina Oglesby Unavailable Yana Lelo Lira MD Primary Care Provider [phone] BernardinoМарина Unavailable Unavailable Tarsha Cha YOUTH AGENT-MONUMENTAL STONEMASON Unavailable [phone] DeniceSocorro YOUTH AGENT-MONUMENTAL STONEMASON Unavailable [phone] Jennifer Fung MD Unavailable Encounter Details Date Type Department Care Team (Late st Contact Info) Description 07/11/2014 Lab Requisition [facility] - Lab Cytogenetics [address] [place] [address] Juanito Pimentel MD [address] [place], [place] [id number] AML (acute myeloblastic leukemia) Social History Tobacco Use Types Packs/Day Years Used Date Smoking Tobacco: Never Assessed Comments Unknown Sex and Gender Information Value Date Recorded Sex Assigned at Not on file Legal Sex Female 2:19 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 5 1:30 PM CDT [facility] CYTOGENOM[facility] LAB at 1330 CDT Disclaimer *This test was developed, and its performance characteristics determined by [facility] Molecular Cytogenetics Laboratory as required by [...] with cytogenetic findings. 5 1:30 PM CDT [facility] CYTO[facility]OM[facility] Historical Cytogenomic Report [...] origin. Electronically signed by Megan Larkin, PhD [facility] on 06/27/2014 at 1348 [id number] [id number] on 05/03/2014 Results: Fluorescence In-Situ Hybridization (FISH): Analysis of 500 interphase cells hybridized with specific labeled fluorescent probes*: break apart MLL probes* directed onto 11q23 showed the following results: nuc aidan (MLLx2)[467/500] Normal Interpretation: To rule out minimal residual disease of the previously identified clonal abnormality (see below;[id number]), FISH was performed using specific probes* as listed in the result section. FISH was negative indicating a possible disease remission. The previous study ([id number])showed a separation of the MLL signals in less than 1% of cells. Clinicopathological correlation is suggested. at 1713 [id number] [id number] on 04/20/2014 Results: Fluorescence In-Situ Hybridization (FISH): Analysis of 500 interphase cells hybridized with specific labeled fluorescent probes*: break apart MLL probes* directed onto 11q23 showed the following results: nuc aidan (MLLx2)(5'MLL sep 3'MLLx1)[4/500] Abnormal showing MLL abnormality in less than 1% of cells. Interpretation: To rule out a minimal residual disease of the previously identified clonal abnormality (see below;[id number]), FISH was performed using specific probes* as [...] onto 11q23 and 16q22, dual labeled probes* D5S23/I9C227 directed onto 5p15.2/5q31, dual labeled probes* CEP7/K6X291 directed onto 7 cent/7q31, dual labeled CEP8/T63Y811 directed onto 8cent/20q11.2, and dual labeled dual fusion ETO/AML1 directed onto 8q22/21q22 showed the following results: nuc aidan (EVI1x2)[196/200],(D 5S23,Q7N343,EGR1)x2[ 197/200],(D7Z1,D7S48 6)x2[195/200],(CEP8, E46Z021)x2[187/200], (ETO,AML1)x2[190/200 ],(MLLx2)(5'MLL sep 3'MLLx21)[85/100],(F OXO1x2)[192/200],(CB FBx2)[190/200] Abnormal [...] 04/07/2014 at 1306 5 1:30 PM CDT [facility] Client Information [facility] - [id number] [facility] Lab Number: [id number] 5 1:30 PM CDT [facility] Other BLOOD SPECIMEN / Unknown 07/11/2014 3:37 PM CDT 07/11/2014 3:37 PM CDT us Juanito Pimentel MD LAB - PATHOLOGY/CYTOLOGY MARICARMEN NEW Final Result [facility] CYTO[facility]OM[facility] [place] [address] documented in this encounter Visit Diagnoses Diagnosis AML (acute myeloblastic leukemia) (HCC) Acute myeloid leukemia, without mention of having achieved remission documented in this encounter Additional Health Concerns Infection Onset Date Last Indicated Resolved Time COVID-19 Under Investigation 01/27/2022 01/27/2022 01/27/2022 9:08 PM CDT COVID-19 Under Investigation 01/28/2022 01/28/2022 01/28/2022 3:39 PM CDT documented as of this encounter Care Teams Rnp Relationship Specialty Start Date End Date Unknown, Provider PCP - General 08/18/17 10/19/17 Lelo Lopez MD [address] [place] [address] PCP - General 10/20/17 Fawad Ruffin MD Hematology and Oncology 09/23/17 Kary Logan RN 09/23/17 09/24/17 Tyrell Diaz Update Information Referring Physician Oncology 09/25/17 Mally Rogers MD [address] [place], [place] [id number] Hematology and Oncology 09/25/17 Angelica Watson MD [address] [place] [address] Hematology and Oncology 09/25/17 Livier Ying, RN 09/25/17 11/22/20 Natalie Tian, RN Registered Nurse 09/25/17 Latha Ordoñez, YOUTH AGENT-PROFESSOR OF SPORT MANAGEMENT [address] [facility] [place] [address] Oncology 09/25/17 Kary Logan RN 09/25/17 11/22/20 Lelo Becerra, YOUTH AGENT-MONUMENTAL STONEMASON [address] [place] [address] Family Medicine 09/25/17 11/22/20 Theodore Oswald PA-C [address] [place] [address] Physician Night Cleaner 09/25/17 Meghan Jurado, MANAGER BODY Dock Grader 09/25/17 11/22/20 Leena Borden, JET BLADE POLISHER Dock Grader 09/25/17 Flaquita Manning, PharmD 09/25/17 Meghan Maya, PharmD 09/25/17 06/30/19 Aleah Giordano, YOUTH AGENT-MONUMENTAL STONEMASON Family Medicine 09/25/17 11/22/20 Selma Garcia, VALERIA 10/20/17 11/22/20 Rody King, VALERIA 10/20/17 11/22/20 Aron Powell, VALERIA 10/20/17 06/30/19 Ligia Rivera MA 10/20/17 06/30/19 Ani Lira 10/20/17 11/22/20 Carolina Oglesby 10/20/17 Марина Lebron Bookmobile Librarian Psychiatry 10/20/17 08/10/18 Tarsha Cha, YOUTH AGENT-MONUMENTAL STONEMASON [address] [facility] OF HEMATOLOGY [place] [address] Nurse Practitioner Family 10/04/20 Socorro Galdamez APRN-NARINDER [address] [facility] OF HEMATOLOGY [place] [address] Nurse Practitioner 10/04/20 Jennifer Fung MD [address] [facility] OF HEMATOLOGY [place] [address] Hematology and Oncology 11/23/21 documented as of this encounter
--- OUTSIDE RECORDS SUMMARY | 2024-11-30 01:03 | XMS_ITS | Encounter Summary ---
Author Organization [facility] Address [address] [place] [address] Care Team Providers Care Non Cdl Driver Name Role Phone Unknown, Provider Primary Care Provider Unavaila Fawad Tony MD Unavailable [phone] Kary Logan RN Unavailable Unavailab Tyrell Reed Unavailable Unavailab Mally Edward MD Unavailable [phone] Angelica Watson MD Unavailable [phone] Livier Ying RN Unavailable Unavailable Natalie Tian RN Unavailable UnavailLatha Box PATENTED HOGSHEAD ASSEMBLER-SCIENTIFIC ILLUSTRATOR Unavailable [phone] Kary Logan RN Unavailable Unavailab Lelo Greene PATENTED HOGSHEAD ASSEMBLER-STEMMER MACHINE Unavailable [phone] Theodore Oswald PA-C Unavailable Unavail able Meghan Alexander PATHOLOGY SECRETARY/TRANSCRIPTIONIST Unavailable Unavailab Leena Escobedo DRAPERY SEWER HAND Unavailable Unavailable Flaquita Manning PharmD Unavailable Unavaila Meghan EdwardsD Unavailable UnavailAleah Cormier PATENTED HOGSHEAD ASSEMBLER-STEMMER MACHINE Unavailable [phone] Selma Garcia RN Unavailable Unavailable Rdoy King RN Unavailable UnavailAron Jolley RN Unavailable Unavailable Ligia Rivera MA Unavailable Unavailable Ani Lira Unavailable Unavailable Carolina Oglesby Unavailable Yana Lelo Lira MD Primary Care Provider [phone] Марина Lebron Unavailable Unavailable Tarsha Cha PATENTED HOGSHEAD ASSEMBLER-STEMMER MACHINE Unavailable [phone] GaldamezSocorro PATENTED HOGSHEAD ASSEMBLER-STEMMER MACHINE Unavailable [phone] Jennifer Fung MD Unavailable Encounter Details Date Type Department Care Team (Late st Contact Info) Description 09/19/2014 Lab Requisition [facility] - Lab Cytogenetics [address] [place] [address] Juanito Pimentel MD [address] [place], [place] [id number] AML (acute myeloblastic leukemia) Social History Tobacco Use Types Packs/Day Years Used Date Smoking Tobacco: Never Assessed Comments Unknown Sex and Gender Information Value Date Recorded Sex Assigned at Not on file 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 5 9:20 AM CDT [facility] at 0920 CDT Disclaimer *This test was developed, and its performance characteristics determined by [facility]ogen[facility] as required by [...] with cytogenetic findings. 5 9:20 AM CDT [facility] Historical Cytogenomic Report [id number] on 09/15/2014 Results: Analysis of 500 interphase [...] verified: 09/15/2014 1742 by Vivian Ho, PhD [facility] [id number] on 08/02/2014 Results: Analysis of 500 interphase [...] verified: 08/02/2014 1158 by Megan Larkin, PhD [facility] [id number] on 07/13/2014 Results: Analysis of 500 interphase [...] verified: 07/13/2014 1330 by Megan Larkin, PhD [facility] [id number] on 06/27/2014 Results: Analysis of 500 interphase [...] verified: 06/27/2014 1348 by Megan Larkin, PhD [facility] [id number] on 05/09/2014 Results: Fluorescence In-Situ Hybridization (FISH): Analysis of 500 interphase cells hybridized with specific labeled fluorescent probes*: break apart MLL probes* directed onto 11q23 showed the following results: nuc aidan (MLLx2)[467/500] Normal Interpretation: To rule out minimal residual disease of the previously identified clonal abnormality (see below;[id number]), FISH was performed using specific probes* as listed in the result section. FISH was negative indicating a possible disease remission. The previous study ([id number])showed a separation of the MLL signals in less than 1% of cells. Clinicopathological correlation is suggested. Last verified: 05/09/2014 1715 by Vivian Ho, PhD [facility] [id number] on 04/20/2014 Results: Fluorescence In-Situ Hybridization (FISH): Analysis of 500 interphase cells hybridized with specific labeled fluorescent probes*: break apart MLL probes* directed onto 11q23 showed the following results: nuc aidan (MLLx2)(5'MLL sep 3'MLLx1)[4/500] Abnormal showing MLL abnormality in less than 1% of cells. Interpretation: To rule out a minimal residual disease of the previously identified clonal abnormality (see below;[id number]), FISH was performed using specific probes* as [...] onto 11q23 and 16q22, dual labeled probes* D5S23/F3H828 directed onto 5p15.2/5q31, dual labeled probes* CEP7/N7P982 directed onto 7 cent/7q31, dual labeled CEP8/H69V729 directed onto 8cent/20q11.2, and dual labeled dual fusion ETO/AML1 directed onto 8q22/21q22 showed the following results: nuc aidan (EVI1x2)[196/200],(D 5S23,G0C759,EGR1)x2[ 197/200],(D7Z1,D7S48 6)x2[195/200],(CEP8, W90J118)x2[187/200], (ETO,AML1)x2[190/200 ],(MLLx2)(5'MLL sep 3'MLLx21)[85/100],(F OXO1x2)[192/200],(CB FBx2)[190/200] Abnormal [...] at 1306 05/ 5 9:20 AM CDT [facility] Client Information [id number] Lab Numbers: [id number] FISH 9:20 AM CDT [facility] Other BLOOD SPECIMEN / Unknown 09/19/2014 09/19/2014 4:29 PM CDT us Juanito Pimentel MD LAB - PATHOLOGY/CYTOLOGY MARICARMEN NEW Final Result [facility] [place] [address] documented in this encounter Visit Diagnoses Diagnosis AML (acute myeloblastic leukemia) (HCC) Acute myeloid leukemia, without mention of having achieved remission documented in this encounter Additional Health Concerns Infection Onset Date Last Indicated Resolved Time COVID-19 Under Investigation 01/27/2022 01/27/2022 01/27/2022 9:08 PM CDT COVID-19 Under Investigation 01/28/2022 01/28/2022 01/28/2022 3:39 PM CDT documented as of this encounter Care Teams Non Cdl Driver Relationship Specialty Start Date End Date Unknown, Provider PCP - General 08/18/17 10/19/17 Lelo Lopez MD [address] [place] [address] PCP - General 10/20/17 Fawad Ruffin MD Hematology and Oncology 09/23/17 Kary Logan RN 09/23/17 09/24/17 Tyrell Diaz Update Information Referring Physician Oncology 09/25/17 Mally Rogers MD [address] [place], [place] [id number] Hematology and Oncology 09/25/17 Angelica Watson MD [address] [place], [place] [id number] Hematology and Oncology 09/25/17 Livier Ying, RN 09/25/17 11/22/20 Natalie Tian, RN Registered Nurse 09/25/17 Latha Ordoñez, PATENTED HOGSHEAD ASSEMBLER-SCIENTIFIC ILLUSTRATOR [address] [facility] 2[place] [address] Oncology 09/25/17 Kary Logan, RN 09/25/17 11/22/20 Lelo Becerra, PATENTED HOGSHEAD ASSEMBLER-STEMMER MACHINE [address] [place] [address] Family Medicine 09/25/17 11/22/20 Theodore Oswald PA-C [address] [place] [address] Physician Icer Air Conditioning 09/25/17 Meghan Jurado, PATHOLOGY SECRETARY/TRANSCRIPTIONIST Plate Preparer 09/25/17 11/22/20 Leena Borden, DRAPERY SEWER HAND Plate Preparer 09/25/17 Flaquita Manning, PharmD 09/25/17 Meghan Maya, PharmD 09/25/17 06/30/19 Aleah Giordano, PATENTED HOGSHEAD ASSEMBLER-STEMMER MACHINE Family Medicine 09/25/17 11/22/20 Selma Garcia, VALERIA 10/20/17 11/22/20 Rody King, VALERIA 10/20/17 11/22/20 Aron Powell, VALERIA 10/20/17 06/30/19 Ligia Rivera MA 10/20/17 06/30/19 Ani Lira 10/20/17 11/22/20 Carolina Oglesby 10/20/17 Марина Lebron Milk Pickup Driver Psychiatry 10/20/17 08/10/18 Tarsha Cha, PATENTED HOGSHEAD ASSEMBLER-STEMMER MACHINE [address] [facility] OF HEMATOLOGY & [place] [address] Nurse Practitioner Family 10/04/20 Socorro Galdamez APRN-NARINDER [address] [facility] MEDICAL ONCOLOGY [place], [place] [id number] Nurse Practitioner 10/04/20 Jennifer Fung MD [address] [facility] OF HEMATOLOGY [place] [address] Hematology and Oncology 11/23/21 documented as of this encounter
--- OUTSIDE RECORDS SUMMARY | 2024-11-30 01:03 | XMS_ITS | Encounter Summary ---
Author Organization [facility] Address [address] [facility] [place] [address] Care Team Providers Care Cashier Checker Name Role Phone Unknown, Provider Primary Care Provider Unavaila Fawad Tony MD Unavailable [phone] Kary Logan RN Unavailable Unavailab Tyrell Reed Unavailable Unavailab Mally Edward MD Unavailable [phone] Angelica Watson MD Unavailable [phone] Livier Ying RN Unavailable Unavailable Natalie Tian RN Unavailable UnavailLatha Box MILIEU TECHNICIAN-ROUSTABOUT PUSHER Unavailable [phone] Kary Logan RN Unavailable Unavailab Lelo Greene MILIEU TECHNICIAN-CONCRETE MIXER OPERATOR Unavailable [phone] Theodore Oswald PA-C Unavailable Unavail able Meghan Alexander FUNERAL CAR DRIVER Unavailable Unavailab Leena Escobedo PORCELAIN FINISH SPRAYER Unavailable Unavailable Flaquita Manning PharmD Unavailable Unavaila Meghan EdwardsD Unavailable UnavailAleah Cormier MILIEU TECHNICIAN-CONCRETE MIXER OPERATOR Unavailable [phone] Selma Garcia RN Unavailable Unavailable Rody King RN Unavailable UnavailAron Jolley RN Unavailable Unavailable Ligia Rivera MA Unavailable Unavailable Ani Lira Unavailable Unavailable Carolina Oglesby Unavailable Yana Lelo Lira MD Primary Care Provider [phone] Марина Lebron Unavailable Unavailable Tarsha Cha MILIEU TECHNICIAN-CONCRETE MIXER OPERATOR Unavailable [phone] Socorro Galdamez MILIEU TECHNICIAN-CONCRETE MIXER OPERATOR Unavailable [phone] Jennifer Fung MD Unavailable Encounter Details Date Type Department Care Team (Late st Contact Info) Description 05/03/2014 Lab Requisition [facility] - Lab Cytogenetics [address] [place] [address] Thanh Raymond MD [address] [place], [place] [id number] AML (acute myeloblastic leukemia) Social History Tobacco Use Types Packs/Day Years Used Date Smoking Tobacco: Never Assessed Comments Unknown Sex and Gender Information Value Date Recorded Sex Assigned at Not on file Legal Sex Female 2:19 PM TREASURY REPRESENTATIVE Gender Identity Not on file Sexual Orientation Not on file documented as of this encounter Plan of Treatment Not on file documented as of this encounter Procedures Procedure Name Priority Date/Time Associated Diagnosis Comments CYTOGENETICS CANCER PANEL Routine 05/03/2014 2:28 PM TREASURY REPRESENTATIVE AML (acute myeloblastic leukemia) [ICD-9-CM] documented in this encounter Results * CYTOGENETICS CANCER PANEL (05/03/2014 2:28 PM TREASURY REPRESENTATIVE) Indication for Study AML/MRD 5 5:15 PM [facility] Results Cytogenetics Fluorescence In-Situ Hybridization (FISH): Analysis of 500 interphase cells hybridized with specific labeled fluorescent probes*: break apart MLL probes* directed onto 11q23 showed the following results: nuc aidan (MLLx2)[467/500] Normal 5 5:15 PM [facility] Interpretation To rule out minimal residual disease of the previously identified clonal abnormality (see below;[id number]), FISH was performed using specific probes* as listed in the result section. FISH was negative indicating a possible disease remission. The previous study ([id number])showed a separation of the MLL signals in less than 1% of cells. Clinicopathological correlation is suggested. 5 5:15 PM [facility] at 1715 TREASURY REPRESENTATIVE Disclaimer *This test was developed, and its [...] pathology with cytogenetic findings. 5 5:15 PM [facility] Historical Cytogenomic Report [id number] on 04/20/2014 Results: Fluorescence In-Situ Hybridization (FISH): [...] onto 11q23 and 16q22, dual labeled probes* D5S23/C8E192 directed onto 5p15.2/5q31, dual labeled probes* CEP7/B5Z659 directed onto 7 cent/7q31, dual labeled CEP8/V59G714 directed onto 8cent/20q11.2, and dual labeled dual fusion ETO/AML1 directed onto 8q22/21q22 showed the following results: nuc aidan (EVI1x2)[196/200],(D 5S23,E1Z512,EGR1)x2[ 197/200],(D7Z1,D7S48 6)x2[195/200],(CEP8, G44T074)x2[187/200], (ETO,AML1)x2[190/200 ],(MLLx2)(5'MLL sep 3'MLLx21)[85/100],(F OXO1x2)[192/200],(CB FBx2)[190/200] Abnormal [...] on 04/07/2014 at 1306 5 5:15 PM TREASURY REPRESENTATIVE [facility] Client Information [facility] - [id number] 5 5:15 PM TREASURY REPRESENTATIVE [facility] Other BONE MARROW SPECIMEN / Unknown 05/03/2014 2:28 PM TREASURY REPRESENTATIVE 05/03/2014 2:29 PM TREASURY REPRESENTATIVE us Thanh Raymond MD LAB - PATHOLOGY/CYTOLOGY ORDERA BLES Final Result Performing Organization Address City/State/[facility] Co de Phone Number [facility] [address] [place] [address] documented in this encounter Visit Diagnoses Diagnosis AML (acute myeloblastic leukemia) (HCC) Acute myeloid leukemia, without mention of having achieved remission documented in this encounter Additional Health Concerns Infection Onset Date Last Indicated Resolved Time COVID-19 Under Investigation 01/27/2022 01/27/2022 01/27/2022 9:08 PM CDT COVID-19 Under Investigation 01/28/2022 01/28/2022 01/28/2022 3:39 PM CDT documented as of this encounter Care Teams Cashier Checker Relationship Specialty Start Date End Date Unknown, Provider PCP - General 08/18/17 10/19/17 Lelo Lopez MD [address] [place] [address] PCP - General 10/20/17 Fawad Ruffin MD Hematology and Oncology 09/23/17 Kary Logan RN 09/23/17 09/24/17 Tyrell Diaz Update Information Referring Physician Oncology 09/25/17 Mally Rogers MD [address] [place] [address] Hematology and Oncology 09/25/17 Angelica Watson MD [address] [place] [address] Hematology and Oncology 09/25/17 Livier Ying, RN 09/25/17 11/22/20 Natalie Tian, RN Registered Nurse 09/25/17 Latha Ordoñez, MILIEU TECHNICIAN-ROUSTABOUT PUSHER [address] [place] [address] 2nd [place] [address] Oncology 09/25/17 Kary Logan RN 09/25/17 11/22/20 Lelo Becerra, MILIEU TECHNICIAN-CONCRETE MIXER OPERATOR [address] [place] [address] [place] [address] Family Medicine 09/25/17 11/22/20 Theodore Oswald PA-C [address] [place] [address] [place] [address] Physician Pocket Creaser 09/25/17 0 Meghan Alexander, FUNERAL CAR DRIVER Trench Shovel Operator 09/25/17 11/22/20 Leena Borden, PORCELAIN FINISH SPRAYER Trench Shovel Operator 09/25/17 Flaquita Manning, PharmD 09/25/17 Meghan Maya, PharmD 09/25/17 06/30/19 Aleah Giordano MILIEU TECHNICIAN-CONCRETE MIXER OPERATOR Family Medicine 09/25/17 11/22/20 Selma Garcia, VALERIA 10/20/17 11/22/20 Rody King, VALERIA 10/20/17 11/22/20 Aron Powell, VALERIA 10/20/17 06/30/19 Ligia Rivera MA 10/20/17 06/30/19 Ani Lira 10/20/17 11/22/20 Carolina Oglesby 10/20/17 Марина Lebron E Business Specialist Psychiatry 10/20/17 08/10/18 Tarsha Cha APRN-CONCRETE MIXER OPERATOR [address] OF HEMATOLOGY & [place] [address] Nurse Practitioner Family 10/04/20 Socorro Galdamez APRN-CONCRETE MIXER OPERATOR [address] [facility] OF HEMATOLOGY & [place] [address] Nurse Practitioner 10/04/20 Jennifer Fung MD [address] [facility] OF HEMATOLOGY & [place] [address] Hematology and Oncology 11/23/21 documented as of this encounter
--- OUTSIDE RECORDS SUMMARY | 2024-11-30 01:03 | XMS_ITS | Encounter Summary ---
Author Organization [facility] Address [address] [place] [address] Care Team Providers Care Industrial Truck Driver Name Role Phone Unknown, Provider Primary Care Provider Unavaila Fawad Tony MD Unavailable [phone] Kary Logan RN Unavailable Unavailab Tyrell Reed Unavailable Unavailab Mally Edward MD Unavailable [phone] Angelica Watson MD Unavailable [phone] Livier Ying RN Unavailable Unavailable Natalie Tian RN Unavailable UnavailLatha Box HR BUSINESS PARTNER CONSULTANT-MUNITIONS FACTORY WORKER Unavailable [phone] Kary Logan RN Unavailable Unavailab Lelo Greene HR BUSINESS PARTNER CONSULTANT-AREA FIELD WORKER Unavailable [phone] Theodore Oswald PA-C Unavailable Unavail able Meghan Alexander AIRCRAFT AIR CONDITIONING MECHANIC Unavailable Unavailab Leena Escobedo MOLD SHOP SUPERVISOR Unavailable Unavailable Flaquita Manning PharmD Unavailable Unavaila Meghan EdwardsD Unavailable UnavailAleah Cormier HR BUSINESS PARTNER CONSULTANT-AREA FIELD WORKER Unavailable [phone] Selma Garcia RN Unavailable Unavailable Rody King RN Unavailable UnavailAron Jolley RN Unavailable Unavailable Ligia Rivera MA Unavailable Unavailable Ani Lira Unavailable Unavailable Carolina Oglesby Unavailable Yana Lelo Lira MD Primary Care Provider [phone] Марина Lebron Unavailable Unavailable Tarsha Cha HR BUSINESS PARTNER CONSULTANT-AREA FIELD WORKER Unavailable [phone] Socorro Galdamez HR BUSINESS PARTNER CONSULTANT-AREA FIELD WORKER Unavailable [phone] Jennifer Fung MD Unavailable Reason for Visit * Reason Onset Date Comments Scheduling 11/19/2016 left VM Encounter Details Date Type Department Care Team (Late st Contact Info) Description 11/19/2016 Telephone [facility]/ EVALUATION UNIT [address] [facility] [place] [id number] WilfredRylee Scheduling (left VM) Social History Tobacco Use Types Packs/Day Years Used Date Smoking Tobacco: Never Assessed Alcohol Use Standard Drinks/Week Comments No 0 (1 standard drink = 0.6 oz pur e alcohol) Comments Unknown Sex and Gender Information Value Date Recorded Sex Assigned at Not on file Legal Sex Female 2:19 PM HAT FINISHING MATERIALS PREPARER Gender Identity Not on file Sexual Orientation [...] documented as of this encounter Care Teams Industrial Truck Driver Relationship Specialty Start Date End Date Unknown, Provider PCP - General 08/18/17 10/19/17 Lelo Lopez MD [address] [place] [address] PCP - General 10/20/17 Fawad Ruffin MD Hematology and Oncology 09/23/17 Kary Logan RN 09/23/17 09/24/17 Tyrell Diaz Update Information Referring Physician Oncology 09/25/17 Mally Rogers MD [facility] [place] [address] Hematology and Oncology 09/25/17 Angelica Watson MD [address] [place] [address] Hematology and Oncology 09/25/17 Livier Ying, RN 09/25/17 11/22/20 Natalie Tian, RN Registered Nurse 09/25/17 Latha Ordoñez, HR BUSINESS PARTNER CONSULTANT-MUNITIONS FACTORY WORKER [address] [place] [address] FLOOR BMT [place] [id number] Oncology 09/25/17 Kary Logan RN 09/25/17 11/22/20 Lelo Becerra, HR BUSINESS PARTNER CONSULTANT-AREA FIELD WORKER [address] [place] [address] [place] [address] Family Medicine 09/25/17 11/22/20 Theodore Oswald PA-C [address] [place] [address] [place] [address] Physician Financial Services Associate 09/25/17 0 Meghan Alexander, AIRCRAFT AIR CONDITIONING MECHANIC Fancy Stitcher 09/25/17 11/22/20 Leena Borden, MOLD SHOP SUPERVISOR Fancy Stitcher 09/25/17 Flaquita Manning, PharmD 09/25/17 Meghan Maya, PharmD 09/25/17 06/30/19 Aleah Giordano HR BUSINESS PARTNER CONSULTANT-AREA FIELD WORKER Family Medicine 09/25/17 11/22/20 Selma Garcia, VALERIA 10/20/17 11/22/20 Rody King, VALERIA 10/20/17 11/22/20 Aron Powell, VALERIA 10/20/17 06/30/19 Ligia Rivera MA 10/20/17 06/30/19 Ani Lira 10/20/17 11/22/20 Carolina Oglesby 10/20/17 Марина Lebron Cleaning Attendant Psychiatry 10/20/17 08/10/18 Tarsha Cha APRN-AREA FIELD WORKER [address] DIV OF HEMATOLOGY & [place] [address] Nurse Practitioner Family 10/04/20 Socorro Galdamez APRN-AREA FIELD WORKER [address] [facility] OF HEMATOLOGY & MEDICAL ONCOLOGY [place], [place] [id number] Nurse Practitioner 10/04/20 Jennifer Fung MD [address] [facility] OF HEMATOLOGY & [place] [address] Hematology and Oncology 11/23/21 documented as of this encounter
--- OUTSIDE RECORDS SUMMARY | 2024-11-30 01:03 | XMS_ITS | Clinical Summary ---
Author Organization [facility] Address [address] [place] [address] Care Team Providers Care Turning Sander Tender Name Role Phone Fawad Ruffin MD Unavailable [phone] Tyrell Diaz Unavailable Unavailab Mally Edward MD Unavailable [phone] Angelica Watson MD Unavailable [phone] Natalie Tian RN Unavailable UnavailLatha Box UTILIZATION REVIEWER-ORGANIC SECTION TECHNICAL LEAD Unavailable [phone] Leena Borden DIESEL DRAGLINE OPERATOR Unavailable Unavailable Flaquita Manning PharmD Unavailable Unavaila Carolina Cheng Unavailable Yana Lelo Lira MD Primary Care Provider [phone] Tarsha Cha UTILIZATION REVIEWER-CIVIL DRAFTING TECHNICIAN Unavailable [phone] Socorro Galdamez UTILIZATION REVIEWER-CIVIL DRAFTING TECHNICIAN Unavailable [phone] Jennifer Fung MD Unavailable Source Comments [facility],non-owned Affiliates and Associated Physician Practices is amultiple site organization consisting of ambulatory clinics and hospital sitesin [place], [place] and [place]. 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 Early menopause occurring in patient [...] on file Legal Sex Female 2:19 PM FOIL STAMP OPERATOR Gender Identity Not on file Sexual [...] kidney disease, unspecified CKD stage, unspecified whether care home insulin use MAMMO BILAT SCREENING Routine 07/17/2020 8:20 AM CDT Visit for screening mammogram DEXA BONE DENSITY AXIAL SKELETON Routine 08/11/2018 1:28 PM CDT 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 PAP LB RFLX HPV ASCU Routine 07/14/2015 3:26 PM FOIL STAMP OPERATOR Abnormal cervical Papanicolaou smear, unspecified abnormal pap finding HIV-1 HIV-2 ANTIGEN/ANTIBODY Routine 04/14/2015 1:14 AM FOIL STAMP OPERATOR HEPATITIS C RNA QUANTITATIVE Routine 03/29/2015 11:23 AM FOIL STAMP OPERATOR from Last 3 Months or Most Recently Relevant to Health Maintenance Results * (ABNORMAL) HEMOGLOBIN A1C (01/28/2022 12:04 AM CDT) Hemoglobin A1c 10.5(H) <=5.6 % 01/28/2022 8:48 AM CDT [facility] Estimated Average Glucose 255 mg/dL 01/28/2022 8:48 AM T [facility] Comment: HbA1c Interpretation: Normal : < 5.7% Pre-diabetes: 5.7-6.4% Diabetes: Equal to or greater than 6.5% Test results diagnostic of diabetes should be repeated for confirmation. Treatment target values recommended by ADA and other clinical organizations should be used to evaluate metabolic control in patients. Reference: [place] Diabetes Association, Standards of Care in Diabetes [...] LAB - CHEMISTRY ORDERABLE S Final Result [address] [address], [place] [phone] * (ABNORMAL) BASIC METABOLIC PANEL (CALCIUM TOTAL) (01/28/2022 12:04 AM CDT) BUN 13 7 - 26 mg/dL 01/28/2022 3:52 AM CDT [facility] Creatinine 0.69 0.56 - 0.96 mg/dL 01/28/2022 3:52 AM [facility] Sodium 138 136 - 145 mmol/L 01/28/2022 3:52 AM [facility] Potassium 4.9(H) 3.5 - 4.5 mmol/L 01/28/2022 3:52 AM [facility] Chloride 99 98 - 107 mmol/L 01/28/2022 3:52 AM [facility] CO2 23 22 - 29 mmol/L 01/28/2022 3:52 AM [facility] Glucose 343(H) 70 - 115 mg/dL 01/28/2022 3:52 AM [facility] Calcium 8.5 8.4 - 10.2 mg/dL 01/28/2022 3:52 AM [facility] Anion Gap 21(H) 8 - 18 01/28/2022 3:52 AM [facility] BUN/Creatinine Ratio 19 7 - 23 01/28/2022 3:52 AM [facility] Osmolality Calculated 300 270 - 300 mOsm/kg 01/28/2022 3:52 AM [facility] eGFR by CKD-EPI >90 >=90 mL/min/1.7 3 m2 01/28/2022 3:52 AM [facility] Blood BLOOD SPECIMEN / Unknown Lab Venipuncture / Unknown 01/28/2022 12:04 AM CDT 01/28/2022 3:25 AM CDT Bandar Vaca PA-C LAB - CHEMISTRY ORDERABLE S Final Result [facility] [address] [place] [address], [facility] [phone] * MAMMO BILAT SCREENING (07/17/2020 8:20 AM [...] ordering physician and is also available on imagoo, the Radiology Department's computerized picture archive system [...] ordering physician and is also available on imagoo, the Radiology Department's computerized picture archive system [...] ASCU (PO REF LAB) (07/14/2015 3:26 PM FOIL STAMP OPERATOR) Diagnosis Comment(A) 07/21/2015 2:28 PM CDT [facility] ([facility]) Comment: EPITHELIAL CELL ABNORMALITY. LOW-GRADE SQUAMOUS INTRAEPITHELIAL LESION (LGSIL); MILD DYSPLASIA IS PRESENT. Recommendation Comment(A) 07/21/2015 2:28 PM CDT [facility] ([facility]) Comment:Suggest follow up as clinically appropriate. Specimen Adequacy Comment 07/21/2015 2:28 PM CDT [facility] ([facility]) Comment: Satisfactory for evaluation. Endocervical and/or squamous metaplastic cells (endocervical component) are present. Performed by Comment 07/21/2015 2:28 PM CDT [facility] ([facility]) Comment:Aleyda Koo Cytot echnologist (ASCP) Electronically Signed by Comment 07/21/2015 2:28 PM CDT [facility] ([facility]) Comment:Moriah Brooks MD, Pathologist Comment . 07/21/2015 2:28 PM CDT [facility] ([facility]) Pathologist Provided ICD10 Comment 07/21/2015 2:28 PM CDT [facility] ([facility]) Comment:R87.612 Note Comment 07/21/2015 2:28 PM CDT [facility] ([facility]) Comment: The Pap smear is a screening test designed to aid in the detection of premalignant and malignant conditions of the uterine cervix. It is not a diagnostic procedure and should not be used as the sole means of detecting cervical cancer. Both false-positive and false-negative reports do occur. Note Comment 07/21/2015 2:28 PM CDT [facility] ([facility]) Comment: The HPV DNA reflex criteria were not met with this specimen result therefore, no HPV testing was performed. Miscellaneous samples (specimen) MICROSCOPIC CYTOLOGIC EXAMINATION OF SMEAR OF SPECIMEN FROM FEMALE GENITAL TRACT PREPARED USING PAPANICOLAOU TECHNIQUE / Unknown Venipuncture / Unknown 07/14/2015 3:26 PM FOIL STAMP OPERATOR 07/17/2015 11:24 AM CDT [facility] ([facility]) - 07/21/2015 2:28 PM CDT Performed at: [address] [place] [address] [id number] Steam And Gas Turbine Assembler: Moriah Brooks MD, Phone: [phone] Specimen Comment: Source.............Cervical Specimen Comment: LMP / Prev Treat...CUH=[id number];[place] / BX Specimen Comment: Dates / Results....no Specimen Comment: Other..............Post Menopausal Specimen Comment: No. of containers..01 CYTYC Thin Prep Vial Thom Guzmán MD LAB - PATHOLOGY/CYTOLOGY ORDERA BLES Final Result [facility] ([facility]) [address] [place] [address] * HIV-1 HIV-2 ANTIGEN/ANTIBODY (04/14/2015 1:14 AM FOIL STAMP OPERATOR) HIV Antigen/Antibod y 1 & 2 Non-reacti ve Non-react mi [facility] Comment: Neither HIV-1 p24 Antigen nor HIV-1/HIV-2 Antibodies are detected. Blood specimen (specimen) BLOOD SPECIMEN / Unknown 04/14/2015 1:14 AM FOIL STAMP OPERATOR 04/14/2015 2:14 AM FOIL STAMP OPERATOR Edilma Callahan LAB - HEMATOLOGY ORDERABLES Fin al Result [address] [phone] * HEPATITIS C RNA QUANTITATIVE PCR (03/29/2015 11:23 AM FOIL STAMP OPERATOR) Pathologist [facility] Hepatitis C Virus RNA PCR Specimen: 1 ml Serum Reference: [id number] Test: Hepatitis C RT-PCR (Quantitative) RESULT Not Detected Reference Range Not Detected INTERPRETATION The quantitative Hepatitis C viral RNA RT-PCR determination was performed on a serum sample and is reported in IU/ml. Hepatitis C viral RNA was not detected. COMMENT The Hepatitis C viral (HCV) RNA analysis utilized a serum sample, real-time reverse welfare administrator PCR, and is reported as Not [...] the isolation of HCV RNA with reverse welfare administrator of genomic HCV RNA followed by real-time PCR in the presence of an unrelated RNA internal control. The internal control ensures that RNA is isolated, and that no general significant inhibitors of the RT-PCR process are present. This analysis was performed using an [place] FDA approved test methodology (Loving RealTime HCV). Test performed at [facility], [address] [place] [address] This case has been personally reviewed and interpreted by the attending (teaching) pathologist. Final Diagnosis performed by Kevin Uribe PHD. Electronically signed 04/07/2015 [facility] Blood specimen (specimen) BLOOD SPECIMEN / Unknown 03/29/2015 11:23 AM FOIL STAMP OPERATOR 03/29/2015 11:40 AM FOIL STAMP OPERATOR Edilma Callahan LAB - CHEMISTRY ORDERABLES Iza l Result [facility] from Last 3 Months or Most Recently Relevant to Health Maintenance Insurance MEDICAID - [place] AETNA AETNA Advance Directives Documents on File Type Date Recorded Patient Valve Repairer Reclamation Expl anation Advance Directives and Livin g Will 04/06/2014 12:00 AM * Full Code (Latest Code Status on File) Date Activated Date Inactivated Comments 01/27/2022 9:27 PM 01/30/2022 5:10 PM Care Teams Turning Sander Tender Relationship Specialty Start Date End Date Lelo Lopez MD [address] [place] [address] PCP - General 10/20/17 Fawad Ruffin MD Hematology and Oncology 09/23/17 Tyrell Diaz Update Information Referring Physician Oncology 09/25/17 Mally Rogers MD [address] [place] [address] Hematology and Oncology 09/25/17 Angelica Watson MD [address] [place] [address] Hematology and Oncology 09/25/17 Natalie Tian, RN Registered Nurse 09/25/17 Latha Ordoñez, UTILIZATION REVIEWER-ORGANIC SECTION TECHNICAL LEAD [address] [facility] 2nd [place] [address] Oncology 09/25/17 Leena Borden, DIESEL DRAGLINE OPERATOR Veterinary Surgery Technologist 09/25/17 Flaquita Manning, PharmD 09/25/17 Carolina Oglesby 10/20/17 Tarsha Cha APRN-CIVIL DRAFTING TECHNICIAN [address] DIV OF HEMATOLOGY & [place] [address] Nurse Practitioner Family 10/04/20 Socorro Galdamez APRN-CIVIL DRAFTING TECHNICIAN [address] DIV OF HEMATOLOGY & [place] [address] Nurse Practitioner 10/04/20 Jennifer Fung MD [address] DIV OF HEMATOLOGY & [place] [address] Hematology and Oncology 11/23/21
--- OUTSIDE RECORDS SUMMARY | 2024-11-30 01:03 | XMS_ITS ---
Author Organization [facility] Address [address] [place] [address] Care Team Providers Care Spanish Translator Name Role Phone Fawad Ruffin MD Unavailable [phone] Tyrell Diaz Unavailable Unavailab Mally Edward MD Unavailable [phone] Angelica Watson MD Unavailable [phone] Natalie Tian RN Unavailable UnavailLatha Box FIRER POWERHOUSE-OCCUPATIONAL THERAPY AIDE Unavailable [phone] Leena Borden RELAYS DRAFTSPERSON Unavailable Unavailable Flaquita Manning PharmD Unavailable Unavaila Carolina Cheng Unavailable Yana Lelo Lira MD Primary Care Provider [phone] Tarsha Cha FIRER POWERHOUSE-HEARING AID SPECIALIST Unavailable [phone] Socorro Galdamez FIRER POWERHOUSE-HEARING AID SPECIALIST Unavailable [phone] Jennifer Fung MD Unavailable Active Problems * [...] 08/08/2017 Anxiety disorder 08/08/2017 Backache 08/08/2017 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
--- OUTSIDE RECORDS SUMMARY | 2024-11-30 01:03 | XMS_ITS | Encounter Summary ---
Author Organization [facility] Address [address] [place] [address] Care Team Providers Care Gui Developer Name Role Phone Unknown, Provider Primary Care Provider Unavaila Fawad Tony MD Unavailable [phone] Kary Logan RN Unavailable Unavailab Tyrell Reed Unavailable Unavailab Mally Edward MD Unavailable [phone] Angelica Watson MD Unavailable [phone] Livier Ying RN Unavailable Unavailable Natalie Tian RN Unavailable UnavailLatha Box FOUNTAIN ATTENDANT-TAXIMETER REPAIRER Unavailable [phone] Kary Logan RN Unavailable Unavailab Lelo Greene FOUNTAIN ATTENDANT-SUPERVISOR PAINT Unavailable [phone] Theodore Oswlad PA-C Unavailable Unavail able Meghan Alexander BILLET BED OPERATOR Unavailable Unavailab Leena Escobedo TRANSFER CAR OPERATOR DRIER Unavailable Unavailable Flaquita Manning PharmD Unavailable Unavaila Meghan EdwardsD Unavailable UnavailAleah Cormier FOUNTAIN ATTENDANT-SUPERVISOR PAINT Unavailable [phone] Selma Garcia RN Unavailable Unavailable Rody King RN Unavailable UnavailAron Jolley RN Unavailable Unavailable Ligia Rivera MA Unavailable Unavailable Ani Lira Unavailable Unavailable Carolina Oglesby Unavailable Yana Lelo Lira MD Primary Care Provider [phone] Марина Lebron Unavailable Unavailable Tarsha Cha FOUNTAIN ATTENDANT-SUPERVISOR PAINT Unavailable [phone] GaldamezSocorro FOUNTAIN ATTENDANT-SUPERVISOR PAINT Unavailable [phone] Jennifer Fung MD Unavailable Encounter Details Date Type Department Care Team (Late st Contact Info) Description 04/20/2014 Lab Requisition [facility] - Lab Cytogenetics [address] [place] [address] Thanh Raymond MD [address] [place], [place] [id number] AML (acute myeloblastic leukemia) Social History Tobacco Use Types Packs/Day Years Used Date Smoking Tobacco: Never Assessed Comments Unknown Sex and Gender Information Value Date Recorded Sex Assigned at Not on file Legal Sex Female 2:19 PM OCEAN FREIGHT AGENT Gender Identity Not on file Sexual Orientation Not on file documented as of this encounter Plan of Treatment Not on file documented as of this encounter Procedures Procedure Name Priority Date/Time Associated Diagnosis Comments CYTOGENETICS CANCER PANEL Routine 04/20/2014 3:11 PM [facility] AML (acute myeloblastic leukemia) [ICD-9-CM] documented in this encounter Results * CYTOGENETICS CANCER PANEL (04/20/2014 3:11 PM OCEAN FREIGHT AGENT) Pathologist [facility] Indication for Study AML/MRD 4 8:06 PM [facility] CYTOGENOMIC LAB Results Cytogenetics Fluorescence In-Situ Hybridization (FISH): Analysis of 500 interphase cells hybridized with specific labeled fluorescent probes*: break apart MLL probes* directed onto 11q23 showed the following results: nuc aidan (MLLx2)(5'MLL sep 3'MLLx1)[4/500] Abnormal showing MLL abnormality in less than 1% of cells. 4 8:06 PM [facility] CYTOGENOMIC LAB Interpretation To rule out a minimal residual disease of the previously identified clonal abnormality (see below;WG [id number]), FISH was performed using specific probes* as [...] other clinicopathological findings. The previous study ( [id number]) showed a separation of the signals in 85% of cells. 4 8:06 PM OCEAN FREIGHT AGENT [facility] MOLEC[facility] CYTOGENOMIC LAB at 2006 OCEAN FREIGHT AGENT Disclaimer *This test was developed, and its performance characteristics determined by [facility] Molecular Cytogenetics Laboratory as required by [...] pathology with cytogenetic findings. 4 8:06 PM [facility] CYTOGENOMIC LAB Historical Cytogenomic [...] onto 11q23 and 16q22, dual labeled probes* D5S23/N8A304 directed onto 5p15.2/5q31, dual labeled probes* CEP7/M0Y148 directed onto 7 cent/7q31, dual labeled CEP8/O11L514 directed onto 8cent/20q11.2, and dual labeled dual fusion ETO/AML1 directed onto 8q22/21q22 showed the following results: nuc aidan (EVI1x2)[196/200],(D 5S23,V2G108,EGR1)x2[ 197/200],(D7Z1,D7S48 6)x2[195/200],(CEP8, R50I795)x2[187/200], (ETO,AML1)x2[190/200 ],(MLLx2)(5'MLL sep 3'MLLx21)[85/100],(F OXO1x2)[192/200],(CB FBx2)[190/200] Abnormal [...] on 04/07/2014 at 1306 4 8:06 PM [facility] CYTOGENOMIC LAB Client Information [facility] - [id number] 4 8:06 PM [facility] CYTOGENOMIC LAB Other BONE MARROW SPECIMEN / Unknown 04/20/2014 3:11 PM OCEAN FREIGHT AGENT 04/20/2014 3:11 PM OCEAN FREIGHT AGENT us Thanh Raymond MD LAB - PATHOLOGY/CYTOLOGY ORDERA BLES Final Result [facility] MO[facility] CYTOGENOMIC [place] [address] documented in this encounter Visit Diagnoses Diagnosis AML (acute myeloblastic leukemia) (HCC) Acute myeloid leukemia, without mention of having achieved remission documented in this encounter Additional Health Concerns Infection Onset Date Last Indicated Resolved Time COVID-19 Under Investigation 01/27/2022 01/27/2022 01/27/2022 9:08 PM CDT COVID-19 Under Investigation 01/28/2022 01/28/2022 01/28/2022 3:39 PM CDT documented as of this encounter Care Teams Gui Developer Relationship Specialty Start Date End Date Unknown, Provider PCP - General 08/18/17 10/19/17 Lelo Lopez MD [address] [place] [address] PCP - General 10/20/17 Fawad Ruffin MD Hematology and Oncology 09/23/17 Kary Logan RN 09/23/17 09/24/17 Tyrell Diaz Update Information Referring Physician Oncology 09/25/17 Mally Rogers MD [address] [place] [address] Hematology and Oncology 09/25/17 Angelica Watson MD [address] [place] [address] Hematology and Oncology 09/25/17 Livier Ying, RN 09/25/17 11/22/20 Natalie Tian, RN Registered Nurse 09/25/17 Latha Ordoñez, FOUNTAIN ATTENDANT-TAXIMETER REPAIRER [address] [facility] [address] [address] Oncology 09/25/17 Kary Logan, RN 09/25/17 11/22/20 Lelo Becerra, FOUNTAIN ATTENDANT-SUPERVISOR PAINT [address] [facility] [address] [address] Family Medicine 09/25/17 11/22/20 Theodore Oswald PA-C [address] [facility] [address] [address] Physician Pattern Gater 09/25/17 Meghan Jurado, BILLET BED OPERATOR Solar Fabrication Technician 09/25/17 11/22/20 Leena Borden, TRANSFER CAR OPERATOR DRIER Solar Fabrication Technician 09/25/17 Flaquita Manning, PharmD 09/25/17 Meghan Maya, MarkusD 09/25/17 06/30/19 Aleah Giordano, FOUNTAIN ATTENDANT-SUPERVISOR PAINT Family Medicine 09/25/17 11/22/20 Selma Garcia, VALERIA 10/20/17 11/22/20 Rody King, VALERIA 10/20/17 11/22/20 Aron Powell, VALERIA 10/20/17 06/30/19 Ligia Rivera MA 10/20/17 06/30/19 Ani Lira 10/20/17 11/22/20 Carolina Oglesby 10/20/17 Марина Lebron Partition Setter Psychiatry 10/20/17 08/10/18 Tarsha Cha FOUNTAIN ATTENDANT-SUPERVISOR PAINT [address] DIV OF HEMATOLOGY & [place] [address] Nurse Practitioner Family 10/04/20 Socorro Galdamez, FOUNTAIN ATTENDANT-SUPERVISOR PAINT [address] DIV OF HEMATOLOGY & [place] [address] Nurse Practitioner 10/04/20 Jennifer Fung MD [facility] [address] [facility] [place] [address] Hematology and Oncology 11/23/21 documented as of this encounter
--- OUTSIDE RECORDS SUMMARY | 2024-11-30 01:03 | XMS_ITS | Encounter Summary ---
Author Organization [facility] Address [address] [facility] [place] [address] Care Team Providers Care Internet Ecommerce Specialist Name Role Phone Unknown, Provider Primary Care Provider Unavaila Fawad Tony MD Unavailable [phone] Kary Logan RN Unavailable Unavailab Tyrell Reed Unavailable Unavailab Mally Edward MD Unavailable [phone] Angeliac Watson MD Unavailable [phone] Livier Ying RN Unavailable Unavailable Natalie Tian RN Unavailable UnavailLatha Box DISH PERSON-GROCERY ASSOCIATE Unavailable [phone] Kary Logan RN Unavailable Unavailab Lelo Greene DISH PERSON-CHIEF OPERATIONS OFFICER Unavailable [phone] Theodore Oswald PA-C Unavailable Unavail able Meghan Alexander FACILITIES MAINTENANCE ENGINEER Unavailable Unavailab Leena Escobedo STAFF ACCOUNTANT Unavailable Unavailable Flaquita Manning PharmD Unavailable Unavaila Meghan EdwardsD Unavailable UnavailAleah Cormier DISH PERSON-CHIEF OPERATIONS OFFICER Unavailable [phone] Selma Garcia RN Unavailable Unavailable Rody King RN Unavailable UnavailAron Jolley RN Unavailable Unavailable Ligia Rivera MA Unavailable Unavailable Ain Lira Unavailable Unavailable Carolina Oglesby Unavailable Yana Lelo Lira MD Primary Care Provider [phone] Марина Lebron Unavailable Unavailable Tarsha Cha DISH PERSON-CHIEF OPERATIONS OFFICER Unavailable [phone] GaldamezSocorro DISH PERSON-CHIEF OPERATIONS OFFICER Unavailable [phone] Jennifer Fung MD Unavailable Encounter Details Date Type Department Care Team (Late st Contact Info) Description 06/07/2015 Lab Requisition [facility] - Lab Cytogenetics [address] [place] [address] Mally Rogers MD [address] [facility] [place] [address] Social History Tobacco Use Types Packs/Day Years Used Date Smoking Tobacco: Never Assessed Comments Unknown Sex and Gender Information Value Date Recorded Sex Assigned at Not on file Legal Sex 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 Gender Identity Not on file Sexual Orientation Not on file documented as of this encounter Plan of Treatment Not on file documented as of this encounter Procedures Procedure Name Priority Date/Time Associated Diagnosis Comments CYTOGENETICS CANCER PANEL Routine 06/07/2015 12:00 AM SANITATION WORKER CLEANING EQUIPMENT documented in this encounter Results * CYTOGENETICS CANCER PANEL (06/07/2015 12:00 AM SANITATION WORKER CLEANING EQUIPMENT) Indication for Study 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 6 11:28 AM [facility] CYTOGENOMIC LAB at 1128 SANITATION WORKER CLEANING EQUIPMENT Disclaimer *This test was developed, and its [...] investigational or for research. 6 11:28 AM [facility] CYTOGENOMIC LAB Historical Cytogenomic Report [id number] on 12/16/14 Results Fluorescence In-Situ Hybridization (FISH): [...] . Historical Cytogenomic Report Historical Cytogenomic Report [id number] on 10/13/2014: Results Analysis of 500 interphase cells from the bone marrow hybridized to dual labeled X and Y specific alpha satellite probes* showed the following results: nuc aidan(DXZ1x2)[3500]// (DXZ1,DYZ3)x1[497/50 0] 99% donor [id number] on 09/19/2014: Results Analysis of 500 interphase cells from the bone marrow hybridized to dual labeled X and Y specific alpha satellite probes* showed the following results: nuc aidan //(DXZ1,DYZ3)x1[498/ 500] 99% donor --------- [id number] on 09/15/2014 Results: Analysis of 500 interphase cells from the bone marrow hybridized to dual labeled X and Y specific alpha satellite probes* showed the following results: nuc aidan //(DXZ1,DYZ3)x1[497/ 500] 99% donor [id number] on 08/02/2014 Results: Analysis of 500 interphase cells from the bone marrow hybridized to dual labeled X and Y specific alpha satellite probes* showed the following results: nuc aidan //(DXZ1,DYZ3)x1[499/ 500] 99% donor [id number] on 07/13/2014 Results: Analysis of 500 interphase cells from the peripheral oncology blood hybridized to dual labeled X and Y specific alpha satellite probes* showed the following results: nuc aidan(DXZ1x2)[2/500]// (DXZ1,DYZ3)x1[495/50 0] 99% donor [id number] on 06/27/2014 Results: Analysis of 500 interphase cells from the peripheral oncology blood hybridized to dual labeled X and Y specific alpha satellite probes* showed the following results: nuc aidan(DXZ1x2)[5/500]// (DXZ1,DYZ3)x1[493/50 0] 98% donor [id number] on 05/09/2014 Results: Fluorescence In-Situ Hybridization (FISH): Analysis of 500 interphase cells hybridized with specific labeled fluorescent probes*: break apart MLL probes* directed onto 11q23 showed the following results: nuc aidan (MLLx2)[467/500] Normal Interpretation: To rule out minimal residual disease of the previously identified clonal abnormality (see below;[id number]), FISH was performed using specific probes* as listed in the result section. FISH was negative indicating a possible disease remission. The previous study ([id number])showed a separation of the MLL signals in less than 1% of cells. Clinicopathological correlation is suggested. Last verified: 05/09/2014 1715 by Vivian Ho, PhD [facility] [id number] on 04/20/2014 Results: Fluorescence In-Situ Hybridization (FISH): [...] onto 11q23 and 16q22, dual labeled probes* D5S23/F4Z817 directed onto 5p15.2/5q31, dual labeled probes* CEP7/L8K724 directed onto 7 cent/7q31, dual labeled CEP8/F09U599 directed onto 8cent/20q11.2, and dual labeled dual fusion ETO/AML1 directed onto 8q22/21q22 showed the following results: nuc aidan (EVI1x2)[196/200],(D 5S23,B0Q006,EGR1)x2[ 197/200],(D7Z1,D7S48 6)x2[195/200],(CEP8, U42U933)x2[187/200], (ETO,AML1)x2[190/200 ],(MLLx2)(5'MLL sep 3'MLLx21)[85/100],(F OXO1x2)[192/200],(CB FBx2)[190/200] Abnormal [...] on 04/07/2014 at 1306 6 11:28 AM SANITATION WORKER CLEANING EQUIPMENT [facility] MOLECULAR CYTOGENOMIC LAB Client Information [facility] - [id number] [facility] Lab Numbers: [id number] chrom, [id number] FISH 6 11:28 AM SANITATION WORKER CLEANING EQUIPMENT [facility] MOLECULAR CYTOGENOMIC LAB Other BONE MARROW SPECIMEN / Unknown 06/07/2015 06/07/2015 4:34 PM SANITATION WORKER CLEANING EQUIPMENT Mally Rogers MD LAB - PATHOLOGY/CYTOLOGY ORDERA BLES Final Result Performing Organization Address City/State/[facility] Co de Phone Number [facility] MOLE[facility] CYTOGENOMIC LAB [address] [place] [address] documented in this encounter Visit Diagnoses Not on filedocumented in this encounter Additional Health Concerns Infection Onset Date Last Indicated Resolved Time COVID-19 Under Investigation 01/27/2022 01/27/2022 01/27/2022 9:08 PM CDT COVID-19 Under Investigation 01/28/2022 01/28/2022 01/28/2022 3:39 PM CDT documented as of this encounter Care Teams Internet Ecommerce Specialist Relationship Specialty Start Date End Date Unknown, Provider PCP - General 08/18/17 10/19/17 Lelo Lopez MD [address] [place] [address] PCP - General 10/20/17 Fawad Ruffin MD Hematology and Oncology 09/23/17 Kary Logan RN 09/23/17 09/24/17 Tyrell Diaz Update Information Referring Physician Oncology 09/25/17 Mally Rogers MD [address] [place] [address] Hematology and Oncology 09/25/17 Angelica Watson MD [address] [place] [address] Hematology and Oncology 09/25/17 Livier Ying, RN 09/25/17 11/22/20 Natalie Tian, RN Registered Nurse 09/25/17 Latha Odroñez, DISH PERSON-GROCERY ASSOCIATE [address] [place] [address] [address] [place] [address] Oncology 09/25/17 Kary Logan RN 09/25/17 11/22/20 Lelo Becerra APRN-CHIEF OPERATIONS OFFICER [address] [place] [address] [place] [address] Family Medicine 09/25/17 11/22/20 Theodore Oswald PA-C [address] [place] [address] [place] [address] Physician It Desktop Support Technician 09/25/17 0 Meghan Alexander, FACILITIES MAINTENANCE ENGINEER Machine Presser 09/25/17 11/22/20 Leena Borden, STAFF ACCOUNTANT Machine Presser 09/25/17 Flaquita Manning, PharmD 09/25/17 Meghan Maya, PharmD 09/25/17 06/30/19 Aleah Giordano APRN-CHIEF OPERATIONS OFFICER Family Medicine 09/25/17 11/22/20 Selma Garcia, VALERIA 10/20/17 11/22/20 Rody King, VALERIA 10/20/17 11/22/20 Aron Powell, VALERIA 10/20/17 06/30/19 Ligia Rivera MA 10/20/17 06/30/19 Ani Lira 10/20/17 11/22/20 Carolina Oglesby 10/20/17 Марина Lerbon Label Remover Psychiatry 10/20/17 08/10/18 Tarsha Cha APRN-CHIEF OPERATIONS OFFICER [address] [facility] [place] [address] Nurse Practitioner Family 10/04/20 Socorro Galdamez APRN-CHIEF OPERATIONS OFFICER [address] [facility] [place] [address] Nurse Practitioner 10/04/20 Jennifer Fung MD [address] [facility] [place] [address] Hematology and Oncology 11/23/21 documented as of this encounter
--- OUTSIDE RECORDS SUMMARY | 2024-11-30 01:03 | XMS_ITS | Encounter Summary ---
Author Organization [facility] Address [address] [facility] [place] [address] Care Team Providers Care Snubber Name Role Phone Unknown, Provider Primary Care Provider Unavaila Fawad Tony MD Unavailable [phone] Kary Logan RN Unavailable Unavailab Tyrell Reed Unavailable Unavailab Mally Edward MD Unavailable [phone] Angelica Watson MD Unavailable [phone] Livier Ying RN Unavailable Unavailable Natalie Tian RN Unavailable UnavailLatha Box CUFFER-PAINT TESTER Unavailable [phone] Kary Logan RN Unavailable Unavailab Lelo Greene CUFFER-DOUBLE END SEWER Unavailable [phone] Theodore Oswald PA-C Unavailable Unavail able Meghan Alexander PROFESSIONAL BASS FISHER Unavailable Unavailab Leena Escobedo METAL HANGER Unavailable Unavailable Flaquita Manning PharmD Unavailable Unavaila Meghan EdwardsD Unavailable UnavailAleah Cormier CUFFER-DOUBLE END SEWER Unavailable [phone] Selma Garcia RN Unavailable Unavailable Rody King RN Unavailable UnavailAron Jolley RN Unavailable Unavailable Ligia Rivera MA Unavailable Unavailable Ani Lira Unavailable Unavailable Carolina Oglesby Unavailable Yana Lelo Lira MD Primary Care Provider [phone] Марина Lebron Unavailable Unavailable Tarsha Cha CUFFER-DOUBLE END SEWER Unavailable [phone] GaldamezSocorro CUFFER-DOUBLE END SEWER Unavailable [phone] Jennifer Fung MD Unavailable Encounter Details Date Type Department Care Team (Late st Contact Info) Description 08/01/2014 Lab Requisition [facility] - Lab Cytogenetics [address] [place] [address] Fawad Ruffin MD [address] [place] [address] Rd [address] [place] [address] AML (acute myeloblastic leukemia) Social History Tobacco Use Types Packs/Day Years Used Date Smoking Tobacco: Never Assessed Comments Unknown Sex and Gender Information Value Date Recorded Sex Assigned at Not on file 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 5 11:58 AM T [facility] CYTOGENOMIC LAB at 1158 CDT Comment *This test was developed, and its performance characteristics determined by [facility] Molecular Cytogenetics Laboratory [...] with cytogenetic findings. 5 11:58 AM CDT [facility] CYTOGENOMIC LAB Historical Cytogenomic Report on [...] to be of donor origin. at 1348 [id number] on 05/03/2014 Results: Fluorescence In-Situ Hybridization (FISH): Analysis of 500 interphase cells hybridized with specific labeled fluorescent probes*: break apart MLL probes* directed onto 11q23 showed the following results: nuc aidan (MLLx2)[467/500] Normal Interpretation: To rule out minimal residual disease of the previously identified clonal abnormality (see below;[id number]), FISH was performed using specific probes* as listed in the result section. FISH was negative indicating a possible disease remission. The previous study ([id number])showed a separation of the MLL signals in less than 1% of cells. Clinicopathological correlation is suggested. at [phone] on 04/20/2014 Results: Fluorescence In-Situ Hybridization (FISH): [...] onto 11q23 and 16q22, dual labeled probes* D5S23/D5U891 directed onto 5p15.2/5q31, dual labeled probes* CEP7/C9G754 directed onto 7 cent/7q31, dual labeled CEP8/Z88Y504 directed onto 8cent/20q11.2, and dual labeled dual fusion ETO/AML1 directed onto 8q22/21q22 showed the following results: nuc aidan (EVI1x2)[196/200],(D 5S23,L8Y162,EGR1)x2[ 197/200],(D7Z1,D7S48 6)x2[195/200],(CEP8, I09H917)x2[187/200], (ETO,AML1)x2[190/200 ],(MLLx2)(5'MLL sep 3'MLLx21)[85/100],(F OXO1x2)[192/200],(CB FBx2)[190/200] Abnormal [...] 04/07/2014 at 1306 5 11:58 AM CDT [facility] CYTOGENOMIC LAB Client Information [facility] - [id number] [facility] Lab Number: [id number] chrom, [id number] FISH 5 11:58 AM CDT [facility] CYTOGENOMIC LAB Other BONE MARROW SPECIMEN / Unknown 08/01/2014 08/01/2014 4:10 PM CDT us Fawad Ruffin MD LAB - PATHOLOGY/CYTOLOGY O RDERABLES Final Result [facility] CYTOGENOM[facility] LAB [facility] [place] [address] documented in this encounter Visit Diagnoses Diagnosis AML (acute myeloblastic leukemia) (HCC) Acute myeloid leukemia, without mention of having achieved remission documented in this encounter Additional Health Concerns Infection Onset Date Last Indicated Resolved Time COVID-19 Under Investigation 01/27/2022 01/27/2022 01/27/2022 9:08 PM CDT COVID-19 Under Investigation 01/28/2022 01/28/2022 01/28/2022 3:39 PM CDT documented as of this encounter Care Teams Snubber Relationship Specialty Start Date End Date Unknown, Provider PCP - General 08/18/17 10/19/17 Lelo Lopez MD [address] [place] [address] PCP - General 10/20/17 Fawad Ruffin MD Hematology and Oncology 09/23/17 Kary Logan, RN 09/23/17 09/24/17 Emily Tyrellalin Bonilla Update Information Referring Physician Oncology 09/25/17 Mally Rogers MD [facility] [place] [address] Hematology and Oncology 09/25/17 Angelica Watson MD [facility] [place] [address] Hematology and Oncology 09/25/17 Livier Ying, RN 09/25/17 11/22/20 Natalie Tian, RN Registered Nurse 09/25/17 Latha Ordoñez, CUFFER-PAINT TESTER [address] [place], [place] [address]TA [facility] 2nd [place] [address] Oncology 09/25/17 Kary Logan, RN 09/25/17 11/22/20 Lelo Becerra, CUFFER-DOUBLE END SEWER [address] [place] [address] [address]nd [place] [address] Family Medicine 09/25/17 11/22/20 Theodore Oswald PA-C [address] [place] [address] [address]nd [place] [address] Physician Manufacturing Automation Engineer 09/25/17 Meghan Jurado, PROFESSIONAL BASS FISHER Patient Liaison 09/25/17 11/22/20 Leena Borden, METAL HANGER Patient Liaison 09/25/17 Flaquita Manning, PharmD 09/25/17 Meghan Maya, PharmD 09/25/17 06/30/19 Aleah Giordano, CUFFER-DOUBLE END SEWER Family Medicine 09/25/17 11/22/20 Selma Garcia, VALERIA 10/20/17 11/22/20 Rody King, VALERIA 10/20/17 11/22/20 Aron Powell, VALERIA 10/20/17 06/30/19 Ligia Rivera MA 10/20/17 06/30/19 Ani Lira 10/20/17 11/22/20 Carolina Oglesby 10/20/17 Марина Lebron Personnel Director Psychiatry 10/20/17 08/10/18 Tarsha Cha APRN-DOUBLE END SEWER [address] [facility] [place] [place] [address] Nurse Practitioner Family 10/04/20 Socorro Galdamez APRN-CNP [address] [facility] [place] [place] [address] Nurse Practitioner 10/04/20 Jennifer Fung MD [address] [facility] [place] [address] Hematology and Oncology 11/23/21 documented as of this encounter
[2024-11-30 01:10] LABS: Alanine Aminotransferase 36 U/L (6-35); Albumin Level 4.6 g/dL (3.5-5.1); Alkaline Phosphatase 72 U/L (38-126); Anion Gap 12 mmol/L (4-12); Aspartate Amino Transferase 32 U/L (14-36); Bilirubin,Total 0.6 mg/dL (0.2-1.3); Blood Urea Nitrogen 11 mg/dL (7-17); Calcium 9.6 mg/dL (8.4-10.2); Carbon Dioxide 21 mmol/L (22-30); Chloride 103 mmol/L (98-107); Estimated CRCL calculation 94 ml/min; Estimated Glomerular Filt Rate > 60; Glucose 280 mg/dL (65-110); Potassium 4.2 mmol/L (3.4-5.0); Sodium 136 mmol/L (137-145); Total Protein 7.7 g/dL (6.3-8.2)
--- NOTE | 2024-11-30 01:13 | ED.PSYCH ---
HPI - Psych General Chief Complaint: Psychiatric Symptoms <Kaylynn Beckman MD - Last Filed: 11/30/24 06:47> Stated Complaint: psych - SI <Kaylynn Beckman MD - Last Filed: 11/30/24 06:47> Time Seen by Provider: 11/30/24 00:34 <Kaylynn Beckman MD - Last Filed: 11/30/24 06:47> History of Present Illness HPI Narrative: Patient presents here with suicidal ideation, she has been feeling sad for a while, she had cancer 10 years ago and does not have a job for the last year and feels useless like she cannot take care of her own kids. No somatic complaints. Having thoughts about hurting herself by possibly overdosing on pills however she does not have enough pills. Does have history of bipolar disorder. <Kaylynn Beckman MD - Last Filed: 11/30/24 06:47> Related Data Home Medications: Home Medications ?Medication ?Instructions ?Recorded ?Confirmed ?Last Taken ?Type pen needle, diabetic 31 gauge x #1,200 ea 07/16/23 09/01/24 Unknown History 09/17 (BD Ultra-Fine Short Pen Needle) <Kaylynn Beckman MD - Last Filed: 11/30/24 06:47> Allergies/Adverse Reactions: Allergies Allergy/AdvReac Type Severity Reaction Status Date / Time No Known Allergies Allergy Verified 11/30/24 00:25 <Kaylynn Beckman MD - Last Filed: 11/30/24 06:47> Review of Systems Review of Systems: All systems reviewed & are unremarkable except as noted in HPI and below <Kaylynn Beckman MD - Last Filed: 11/30/24 06:47> [facility]LY [facility] Past Medical History Medical History: Medical History Tendinitis of right rotator cuff Depression Diarrhea Nausea Coughing Hoarseness Wears glasses Light headedness Chronic headaches Claustrophobia Mood disorder Tobacco abuse Acute myeloid leukemia in remission Anxiety Current moderate episode of major depressive disorder without prior episode Hyperlipidemia Type 2 diabetes mellitus without complication, without long-term current use of insulin <Kaylynn Beckman MD - Last Filed: 11/30/24 06:47> Surgical History Surgical History: Surgical History History of bone marrow transplant <Kaylynn Beckman MD - Last Filed: 11/30/24 06:47> Family History Family History: Family History Mother Family history of mental disorder Depression Hypertension Grandparent Cerebrovascular accident Family history of lung cancer Other High cholesterol <Kaylynn Beckman MD - Last Filed: 11/30/24 06:47> Social History Social History: Social History Smoking packs per day: 0.5 Smoking cigarettes per day: 10.0 Years smoked: 19 Smoking pack-years: 9.50 Smoking status: Current every day smoker Tobacco type: cigarettes and e-cigarettes/vaping Second hand tobacco smoke exposure: No Alcohol intake: never Substance use: current Substance use type: marijuana Lack of Transportation: No Lack of Food: Sometimes True Current Housing: I Have Housing Concerned About Future Housing: No Difficulty Paying Gas/Electric Bills: No Difficulty Paying for Meds: No Currently Unemployed: No Education: Associate Degree Difficulty w/ Childcare or Family Care: No Occupation/Education: other Gender identity (if verbalized by the patient): Female Spiritual care concerns: No Agree to blood products: Yes <Kaylynn Beckman MD - Last Filed: 11/30/24 06:47> Exam Narrative: EXAMINATION OF ORGAN SYSTEMS/BODY AREAS: Constitutional: Vital signs per nursing GENERAL: Very tearful HEAD: Normal with no signs of head trauma. EYES: EOMI, conjunctiva normal ENT: Hearing grossly intact LUNGS: Nonlabored breathing. HEART: [Regular rate and rhythm] ABD: [Soft], [nontender to palpation] EXT: Normal range of motion SKIN: [No rashes or lesions.] NEURO: [Alert and oriented x 3. No gross focal sensory or strength deficits.] PSYCH: Tearful affect <Kaylynn Beckman MD - Last Filed: 11/30/24 06:47> Course Course Emergency Course: Patient given a safety plan by CRISIS. Patient walked out of the department immediately afterwards to go home because she has to walk and wanted to get started before the heat worsened. I was unable to have face to face with her. <Spencer Smith MD - Last Filed: 11/30/24 07:19> Vital Signs Vital signs: Vital Signs Temperature 98.3 F 11/30/24 00:40 Pulse Rate 103 H 11/30/24 00:40 Respiratory Rate 20 11/30/24 00:40 Blood Pressure 131/94 H 11/30/24 00:40 Pulse Oximetry 96 11/30/24 00:40 Oxygen Delivery Room Air 11/30/24 00:40 Temperature 98.3 F 11/30/24 00:40 Pulse Rate 103 H 11/30/24 00:40 Respiratory Rate 20 11/30/24 00:40 Blood Pressure 131/94 H 11/30/24 00:40 Pulse Oximetry 96 11/30/24 00:40 Oxygen Delivery Room Air 11/30/24 00:40 <Kaylynn Beckman MD - Last Filed: 11/30/24 06:47> Vital Signs Temperature 98.3 F 11/30/24 00:40 Pulse Rate 103 H 11/30/24 00:40 Respiratory Rate 20 11/30/24 00:40 Blood Pressure 131/94 H 11/30/24 00:40 Pulse Oximetry 96 11/30/24 00:40 Oxygen Delivery Room Air 11/30/24 00:40 Temperature 98.3 F 11/30/24 00:40 Pulse Rate 103 H 11/30/24 00:40 Respiratory Rate 20 11/30/24 00:40 Blood Pressure 131/94 H 11/30/24 00:40 Pulse Oximetry 96 11/30/24 00:40 Oxygen Delivery Room Air 11/30/24 00:40 <Spencer Smith MD - Last Filed: 11/30/24 07:19> MDM - Psych MDM Narrative Medical decision making narrative: Patient presents here with suicidal ideation, has considered overdosing on her medications, this is ongoing for a while but worse over last few days. Denies Somatic complaints. On exam is quite tearful. Medically clear for psychiatric evaluation. Signed out to oncoming physician pending disposition <Kaylynn Beckman MD - Last Filed: 11/30/24 06:47> Lab Data Result diagrams: 11/30/24 00:40 11/30/24 00:40 <Kaylynn Beckman MD - Last Filed: 11/30/24 06:47> Labs: Lab Results 11/30/24 11/30/2425 Range/Units 00:40 00:42 02:22 WBC 13.5 H (4.5-10.0) K/mm3 RBC 5.61 H (4.2-5.4) M/mm3 Hgb 16.2 H (12.0-15.0) g/dL Hct 47.8 H (37.0-47.0) % MCV 85.2 (80-100) fl MCH 28.9 (26-34) pg MCHC 33.9 (32-36) g/dl RDW 14.3 (11.5-14.5) % Plt Count 230 (150-375) k/mm3 MPV 9.9 (7.4-10.4) fl Immature Gran % (Auto) 0.2 (0-0.5) % Neut % (Auto) 54.1 (45.5-73.1) % Lymph % (Auto) 36.4 (18.3-44.2) % Will % (Auto) 6.4 (2.6-8.5) % Eos % (Auto) 2.1 (0-4.4) % Baso % (Auto) 0.8 (0.2-1.2) % Lymph # (Auto) 4.93 H (0.9-3.2) K/mm3 Will # (Auto) 0.9 H (0.1-0.6) K/mm3 Eos # (Auto) 0.3 (0-0.3) K/mm3 Baso # (Auto) 0.1 (0.0-0.1) K/mm3 Abs Immat Gran (auto) 0.03 (0.00-0.031) K/mm3 Absolute Neuts (auto) 7.3 H (1.3-6.7) K/mm3 Absolute Nucleated RBC 0.000 (0.0-0.012) K/mm3 Nucleated RBC % 0.0 (0.0-0.2) % Sodium 136 L (137-145) mmol/L Potassium 4.2 (3.4-5.0) mmol/L Chloride 103 (98-107) mmol/L Carbon Dioxide 21 L (22-30) mmol/L Anion Gap 12 (4-12) mmol/L BUN 11 (7-17) mg/dL Creatinine 0.68 L (0.7-1.0) mg/dL Estim Creat Clear Calc 94 ml/min Estimated GFR > 60 (59 - ) Glucose 280 H (65-110) mg/dL Calcium 9.6 (8.4-10.2) mg/dL Total Bilirubin 0.6 (0.2-1.3) mg/dL AST 32 (14-36) U/L ALT 36 H (6-35) U/L Alkaline Phosphatase 72 (38-126) U/L Total Protein 7.7 (6.3-8.2) g/dL Albumin 4.6 (3.5-5.1) g/dL TSH (Reflex) 4.890 H (0.465-4.68) uIU/mL Free T4 1.04 (0.78-2.19) ng/dL Total T3 1.04 (0.82-1.58) NG/ML Urine Color Dark yellow (Yellow) Urine Appearance Cloudy H (Clear) Urine pH 5.0 (5.0-9.0) Ur Specific [place] 1.036 H (1.001-1.035) Urine Protein Negative (Negative) mg/dL Urine Glucose (UA) 3+ H (Negative) mg/dL Urine Ketones Trace H (Negative) mg/dL Ur Blood (Man) Negative (Negative) Urine Nitrate Negative (Negative) Urine Bilirubin Negative (Negative) Urine Urobilinogen 1.0 (<2.0) mg/dL Leukocyte Esterase Rfl Trace H (Negative) AMBER/UL Urine RBC 0-2 (0-2) /hpf Urine WBC 21-50 H (0-3) /hpf Ur Squamous Epith Cells Moderate (Few) /hpf Urine Bacteria 2+ H /hpf Urine Casts 3-5 POC Urine HCG, Qual (Negative) Urine Opiates Screen Negative (Negative) Urine Methadone Screen Negative (Negative) Ur Barbiturates Screen Negative (Negative) Ur Phencyclidine Scrn Negative (Negative) Ur Amphetamine Screen Negative (Negative) U Benzodiazepines Scrn Positive A (Negative) Urine Cocaine Screen Negative (Negative) U Cannabinoids Screen Positive A (Negative) Ethyl Alcohol < 10 (<10) mg/dL Influenza A (RT-PCR) Negative (Negative) Influenza B (RT-PCR) Negative (Negative) RSV (RT-PCR) Negative (Negative) SARS-CoV-2 RNA (RT-PCR) Negative (Negative) 11/30/24 Range/Units 02:25 WBC (4.5-10.0) K/mm3 RBC (4.2-5.4) M/mm3 Hgb (12.0-15.0) g/dL Hct (37.0-47.0) % MCV (80-100) fl MCH (26-34) pg MCHC (32-36) g/dl RDW (11.5-14.5) % Plt Count (150-375) k/mm3 MPV (7.4-10.4) fl Immature Gran % (Auto) (0-0.5) % Neut % (Auto) (45.5-73.1) % Lymph % (Auto) (18.3-44.2) % Will % (Auto) (2.6-8.5) % Eos % (Auto) (0-4.4) % Baso % (Auto) (0.2-1.2) % Lymph # (Auto) (0.9-3.2) K/mm3 Will # (Auto) (0.1-0.6) K/mm3 Eos # (Auto) (0-0.3) K/mm3 Baso # (Auto) (0.0-0.1) K/mm3 Abs Immat Gran (auto) (0.00-0.031) K/mm3 Absolute Neuts (auto) (1.3-6.7) K/mm3 Absolute Nucleated RBC (0.0-0.012) K/mm3 Nucleated RBC % (0.0-0.2) % Sodium (137-145) mmol/L Potassium (3.4-5.0) mmol/L Chloride (98-107) mmol/L Carbon Dioxide (22-30) mmol/L Anion Gap (4-12) mmol/L BUN (7-17) mg/dL Creatinine (0.7-1.0) mg/dL Estim Creat Clear Calc ml/min Estimated GFR (59 - ) Glucose (65-110) mg/dL Calcium (8.4-10.2) mg/dL Total Bilirubin (0.2-1.3) mg/dL AST (14-36) U/L ALT (6-35) U/L Alkaline Phosphatase (38-126) U/L Total Protein (6.3-8.2) g/dL Albumin (3.5-5.1) g/dL TSH (Reflex) (0.465-4.68) uIU/mL Free T4 (0.78-2.19) ng/dL Total T3 (0.82-1.58) NG/ML Urine Color (Yellow) Urine Appearance (Clear) Urine pH (5.0-9.0) Ur Specific [place] (1.001-1.035) Urine Protein (Negative) mg/dL Urine Glucose (UA) (Negative) mg/dL Urine Ketones (Negative) mg/dL Ur Blood (Man) (Negative) Urine Nitrate (Negative) Urine Bilirubin (Negative) Urine Urobilinogen (<2.0) mg/dL Leukocyte Esterase Rfl (Negative) AMBER/UL Urine RBC (0-2) /hpf Urine WBC (0-3) /hpf Ur Squamous Epith Cells (Few) /hpf Urine Bacteria /hpf Urine Casts POC Urine HCG, Qual Negative (Negative) Urine Opiates Screen (Negative) Urine Methadone Screen (Negative) Ur Barbiturates Screen (Negative) Ur Phencyclidine Scrn (Negative) Ur Amphetamine Screen (Negative) U Benzodiazepines Scrn (Negative) Urine Cocaine Screen (Negative) U Cannabinoids Screen (Negative) Ethyl Alcohol (<10) mg/dL Influenza A (RT-PCR) (Negative) Influenza B (RT-PCR) (Negative) RSV (RT-PCR) (Negative) SARS-CoV-2 RNA (RT-PCR) (Negative) <Kaylynn Beckman MD - Last Filed: 11/30/24 06:47> Lab Results 11/30/24 11/30/24 11/30/24 Range/Units 00:40 00:42 02:22 WBC 13.5 H (4.5-10.0) K/mm3 RBC 5.61 H (4.2-5.4) M/mm3 Hgb 16.2 H (12.0-15.0) g/dL Hct 47.8 H (37.0-47.0) % MCV 85.2 (80-100) fl MCH 28.9 (26-34) pg MCHC 33.9 (32-36) g/dl RDW 14.3 (11.5-14.5) % Plt Count 230 (150-375) k/mm3 MPV 9.9 (7.4-10.4) fl Immature Gran % (Auto) 0.2 (0-0.5) % Neut % (Auto) 54.1 (45.5-73.1) % Lymph % (Auto) 36.4 (18.3-44.2) % Will % (Auto) 6.4 (2.6-8.5) % Eos % (Auto) 2.1 (0-4.4) % Baso % (Auto) 0.8 (0.2-1.2) % Lymph # (Auto) 4.93 H (0.9-3.2) K/mm3 Will # (Auto) 0.9 H (0.1-0.6) K/mm3 Eos # (Auto) 0.3 (0-0.3) K/mm3 Baso # (Auto) 0.1 (0.0-0.1) K/mm3 Abs Immat Gran (auto) 0.03 (0.00-0.031) K/mm3 Absolute Neuts (auto) 7.3 H (1.3-6.7) K/mm3 Absolute Nucleated RBC 0.000 (0.0-0.012) K/mm3 Nucleated RBC % 0.0 (0.0-0.2) % Sodium 136 L (137-145) mmol/L Potassium 4.2 (3.4-5.0) mmol/L Chloride 103 (98-107) mmol/L Carbon Dioxide 21 L (22-30) mmol/L Anion Gap 12 (4-12) mmol/L BUN 11 (7-17) mg/dL Creatinine 0.68 L (0.7-1.0) mg/dL Estim Creat Clear Calc 94 ml/min Estimated GFR > 60 (59 - ) Glucose 280 H (65-110) mg/dL Calcium 9.6 (8.4-10.2) mg/dL Total Bilirubin 0.6 (0.2-1.3) mg/dL AST 32 (14-36) U/L ALT 36 H (6-35) U/L Alkaline Phosphatase 72 (38-126) U/L Total Protein 7.7 (6.3-8.2) g/dL Albumin 4.6 (3.5-5.1) g/dL TSH (Reflex) 4.890 H (0.465-4.68) uIU/mL Free T4 1.04 (0.78-2.19) ng/dL Total T3 1.04 (0.82-1.58) NG/ML Urine Color Dark yellow (Yellow) Urine Appearance Cloudy H (Clear) Urine pH 5.0 (5.0-9.0) Ur Specific [place] 1.036 H (1.001-1.035) Urine Protein Negative (Negative) mg/dL Urine Glucose (UA) 3+ H (Negative) mg/dL Urine Ketones Trace H (Negative) mg/dL Ur Blood (Man) Negative (Negative) Urine Nitrate Negative (Negative) Urine Bilirubin Negative (Negative) Urine Urobilinogen 1.0 (<2.0) mg/dL Leukocyte Esterase Rfl Trace H (Negative) AMBER/UL Urine RBC 0-2 (0-2) /hpf Urine WBC 21-50 H (0-3) /hpf Ur Squamous Epith Cells Moderate (Few) /hpf Urine Bacteria 2+ H /hpf Urine Casts 3-5 POC Urine HCG, Qual (Negative) Urine Opiates Screen Negative (Negative) Urine Methadone Screen Negative (Negative) Ur Barbiturates Screen Negative (Negative) Ur Phencyclidine Scrn Negative (Negative) Ur Amphetamine Screen Negative (Negative) U Benzodiazepines Scrn Positive A (Negative) Urine Cocaine Screen Negative (Negative) U Cannabinoids Screen Positive A (Negative) Ethyl Alcohol < 10 (<10) mg/dL Influenza A (RT-PCR) Negative (Negative) Influenza B (RT-PCR) Negative (Negative) RSV (RT-PCR) Negative (Negative) SARS-CoV-2 RNA (RT-PCR) Negative (Negative) 11/30/24 Range/Units 02:25 WBC (4.5-10.0) K/mm3 RBC (4.2-5.4) M/mm3 Hgb (12.0-15.0) g/dL Hct (37.0-47.0) % MCV (80-100) fl MCH (26-34) pg MCHC (32-36) g/dl RDW (11.5-14.5) % Plt Count (150-375) k/mm3 MPV (7.4-10.4) fl Immature Gran % (Auto) (0-0.5) % Neut % (Auto) (45.5-73.1) % Lymph % (Auto) (18.3-44.2) % Will % (Auto) (2.6-8.5) % Eos % (Auto) (0-4.4) % Baso % (Auto) (0.2-1.2) % Lymph # (Auto) (0.9-3.2) K/mm3 Will # (Auto) (0.1-0.6) K/mm3 Eos # (Auto) (0-0.3) K/mm3 Baso # (Auto) (0.0-0.1) K/mm3 Abs Immat Gran (auto) (0.00-0.031) K/mm3 Absolute Neuts (auto) (1.3-6.7) K/mm3 Absolute Nucleated RBC (0.0-0.012) K/mm3 Nucleated RBC % (0.0-0.2) % Sodium (137-145) mmol/L Potassium (3.4-5.0) mmol/L Chloride (98-107) mmol/L Carbon Dioxide (22-30) mmol/L Anion Gap (4-12) mmol/L BUN (7-17) mg/dL Creatinine (0.7-1.0) mg/dL Estim Creat Clear Calc ml/min Estimated GFR (59 - ) Glucose (65-110) mg/dL Calcium (8.4-10.2) mg/dL Total Bilirubin (0.2-1.3) mg/dL AST (14-36) U/L ALT (6-35) U/L Alkaline Phosphatase (38-126) U/L Total Protein (6.3-8.2) g/dL Albumin (3.5-5.1) g/dL TSH (Reflex) (0.465-4.68) uIU/mL Free T4 (0.78-2.19) ng/dL Total T3 (0.82-1.58) NG/ML Urine Color (Yellow) Urine Appearance (Clear) Urine pH (5.0-9.0) Ur Specific [place] (1.001-1.035) Urine Protein (Negative) mg/dL Urine Glucose (UA) (Negative) mg/dL Urine Ketones (Negative) mg/dL Ur Blood (Man) (Negative) Urine Nitrate (Negative) Urine Bilirubin (Negative) Urine Urobilinogen (<2.0) mg/dL Leukocyte Esterase Rfl (Negative) AMBER/UL Urine RBC (0-2) /hpf Urine WBC (0-3) /hpf Ur Squamous Epith Cells (Few) /hpf Urine Bacteria /hpf Urine Casts POC Urine HCG, Qual Negative (Negative) Urine Opiates Screen (Negative) Urine Methadone Screen (Negative) Ur Barbiturates Screen (Negative) Ur Phencyclidine Scrn (Negative) Ur Amphetamine Screen (Negative) U Benzodiazepines Scrn (Negative) Urine Cocaine Screen (Negative) U Cannabinoids Screen (Negative) Ethyl Alcohol (<10) mg/dL Influenza A (RT-PCR) (Negative) Influenza B (RT-PCR) (Negative) RSV (RT-PCR) (Negative) SARS-CoV-2 RNA (RT-PCR) (Negative) <Spencer Smith MD - Last Filed: 11/30/24 07:19> Discharge Plan Discharge Clinical Impression: Depression with suicidal ideation <Kaylynn Beckman MD - Last Filed: 11/30/24 06:47> Patient Disposition: Home <Kaylynn Beckman MD - Last Filed: 11/30/24 06:47> Condition: Stable <Kaylynn Beckman MD - Last Filed: 11/30/24 06:47> Patient Language: Spanish <Kaylynn Beckman MD - Last Filed: 11/30/24 06:47> Prescriptions: No Action (DME) pen needle, diabetic [BD Ultra-Fine Short Pen Needle] 31 gauge x 5/16 needle See Rx Instructions .ROUTE .MEDSUPPLY Qty: 1200 Rx Instructions: As directed aripiprazole [Abilify] 5 mg tablet 5 mg PO QHS Qty: 90 0RF Ozempic 0.25 mg or 0.5 mg (2 mg/3 mL) pen injector 0.5 mg subcut WEEKLY Qty: 6 3RF Ozempic 0.25 mg or 0.5 mg (2 mg/3 mL) pen injector 0.25 mg subcut WEEKLY Qty: 9 0RF Rx Instructions: for 4 weeks atorvastatin 40 mg tablet 40 mg PO DAILY Qty: 90 3RF metformin 1,000 mg tablet 1,000 mg PO .E12hr Qty: 180 3RF (DME) Dexcom G7 Sensor Device See Rx Instructions .Route Qty: 9 3RF Rx Instructions: As directed (DME) blood-glucose meter [Blood Glucose Monitoring] Kit See Rx Instructions .ROUTE .MEDSUPPLY Qty: 1 3RF Rx Instructions: As directed clonazepam 1 mg tablet 1 mg PO QHS Qty: 90 3RF venlafaxine 75 mg capsule,extended release 24hr 225 mg PO DAILY Qty: 270 3RF <Kaylynn Beckman MD - Last Filed: 11/30/24 06:47> Follow-up/Referrals: Jaylan Dean MD [Primary Care Provider] - <Kaylynn Becmkan MD - Last Filed: 11/30/24 06:47>
[2024-11-30 01:24] LABS: Influenza A QL RT-PCR Negative (Negative); Influenza B QL RT-PCR Negative (Negative); RSV RNA, RT-PCR Negative (Negative); SARS-CoV-2 RNA PCR Negative (Negative)
[2024-11-30 01:38] LABS: Thyroid Stimulating Hormone Reflex 4.890 uIU/mL (0.465-4.68)
[2024-11-30 02:26] LABS: BEDSIDEPREGUCG Negative (Negative)
[2024-11-30 02:36] LABS: Add Urine Microscopic? YES; Appearance Urine Cloudy (Clear); Glucose Urine UA 3+ mg/dL (Negative); Leukocyte Esterase Ur Trace LEU/UL (Negative); Nitrate Urine Negative (Negative); Specific Grav Ur 1.036 (1.001-1.035)
[2024-11-30 02:54] LABS: Cannabinoid Screen Urine Positive (Negative)
[2024-11-30 03:12] LABS: Free T4 Free Thyroxine Reflex 1.04 ng/dL (0.78-2.19)
[2024-11-30] MEDS: NITROFURANTOIN MONOHYD MACROCR 100 MG CAP PO (03:13)
--- NOTE | 2024-11-30 03:16 | PC.NURSE ---
Attempted to call crisis since pt has been medically cleared per [facility] EDP Rk. No answer.
[2024-11-30 03:54] LABS: Total Triiodothyronine (T3) 1.04 NG/ML (0.82-1.58)
[2024-11-30 07:23] VITALS: BP 126/80; PULSE 74; RESP 16; TEMP 36.6; O2SAT 100
== END 2024-11-30 07:26 | disposition home or self-care (01) ==
PROVIDERS: Emergency Provider Emergency Medicine; PCP Family Medicine
DX: R45.851 Suicidal ideations (principal); F31.9 Bipolar disorder, unspecified; Z11.52 Encounter for screening for COVID-19; F41.9 Anxiety disorder, unspecified; C92.01 Acute myeloblastic leukemia, in remission; E11.9 Type 2 diabetes mellitus without complications; E78.5 Hyperlipidemia, unspecified; F17.210 Nicotine dependence, cigarettes, uncomplicated; F17.290 Nicotine dependence, other tobacco product, uncomplicated; Z79.85 Long-term (current) use of injectable non-insulin antidiabetic drugs; Z79.899 Other long term (current) drug therapy; Z79.84 Long term (current) use of oral hypoglycemic drugs
CPT/HCPCS: 36415; 80053; 80307; 81001; 81025; 82077; 84439; 84443; 84480; 85025; 87637; 99284; A9270

== ENCOUNTER 2025-04-30 13:48 | Emergency (ER) | payer MEDICARE, SELFPAY ==
[2025-04-30 14:25] VITALS: BP 124/65; PULSE 125; RESP 20; TEMP 36.2; O2SAT 95
--- NOTE | 2025-04-30 14:34 | ED.URI ---
HPI - URI/Sore Throat General Chief Complaint: Upper Respiratory Infection Stated Complaint: sob, coughing, diarrhea, cant eat or drink Time Seen by Provider: 04/30/25 14:35 Source: patient and RN notes reviewed Mode of arrival: ambulatory Limitations: no limitations History of Present Illness HPI Narrative: 39-year-old female with a history of diabetes presented for complaint of frequent cough and difficulty taking a deep breath. Onset 5 days. Also reports nasal congestion drainage, headache, body aches, diarrhea, fevers and chills. Patient is a smoker. Denies nausea, vomiting or lethargy. MD elicited complaint: cough Related Data Home Medications ?Medication ?Instructions ?Recorded ?Confirmed ?Last Taken ?Type pen needle, diabetic 31 gauge x #1,200 ea 07/16/23 12/29/24 Unknown History 09/17 (BD Ultra-Fine Short Pen Needle) Allergies Allergy/AdvReac Type Severity Reaction Status Date / Time No Known Allergies Allergy Verified 04/30/25 14:15 Review of Systems Review of Systems: Per HPI [facility] Past Medical History Medical History Tendinitis of right rotator cuff Depression Diarrhea Nausea Coughing Hoarseness Wears glasses Light headedness Chronic headaches Claustrophobia Mood disorder Tobacco abuse Acute myeloid leukemia in remission Anxiety Current moderate episode of major depressive disorder without prior episode Hyperlipidemia Type 2 diabetes mellitus without complication, without long-term current use of insulin Surgical History Surgical History History of bone marrow transplant Family History Family History Mother Family history of mental disorder Depression Hypertension Grandparent Cerebrovascular accident Family history of lung cancer Other High cholesterol Social History Social History Smoking packs per day: 0.5 Smoking cigarettes per day: 10.0 Years smoked: 19 Smoking pack-years: 9.50 Smoking status: Current every day smoker Tobacco type: cigarettes and e-cigarettes/vaping Second hand tobacco smoke exposure: No Alcohol intake: never Substance use: current Substance use type: marijuana Lack of Transportation: No Lack of Food: Sometimes True Current Housing: I Have Housing Concerned About Future Housing: No Difficulty Paying Gas/Electric Bills: No Difficulty Paying for Meds: No Currently Unemployed: No Education: Associate Degree Difficulty w/ Childcare or Family Care: No Occupation/Education: other Gender identity (if verbalized by the patient): Female Spiritual care concerns: No Agree to blood products: Yes Exam Narrative: GENERAL: Ill-appearing, nontoxic no acute distress. EYES: conjunctivae clear ENT: Mucous membranes moist. TM pearly dickens with dull light reflex bilaterally; no tragal tenderness. Oropharynx erythematous without lesions or exudate, no drooling, no hoarseness, no trismus, uvula midline. No tripod positioning, muffled voice, soft palate or pharyngeal wall bulging NECK: Supple. No lymphadenopathy CHEST: Clear to auscultation, breath sounds equal. Coarse and wheezing throughout, frequent nonproductive cough. No respiratory distress, speaks in full sentences. HEART: Regular rate and rhythm. No murmur heard. SKIN: Warm, dry, no rash. NEURO: Alert and oriented x3. PSYCH: Normal mood and affect Course Course Level of Care: Express Care Visit Vital Signs Vital signs: Vital Signs Temperature 97.1 F L 04/30/25 14:25 Pulse Rate 125 H 04/30/25 14:25 Respiratory Rate 20 04/30/25 14:25 Blood Pressure 124/65 04/30/25 14:25 Pulse Oximetry 95 04/30/25 14:25 Temperature 97.1 F L 04/30/25 14:25 Pulse Rate 125 H 04/30/25 14:25 Respiratory Rate 20 04/30/25 14:25 Blood Pressure 124/65 04/30/25 14:25 Pulse Oximetry 95 04/30/25 14:25 [facility] MDM Narrative Medical decision making narrative: positive flu. Discussed physical exam findings. Advised supportive measures and signs/symptoms to go to the ER. Pt is appropriate for outpt treatment and f/u. Differential Diagnosis Differential Diagnosis: Influenza, covid, sinusitis, OM, strep pharyngitis, URI Discharge Plan Discharge Clinical Impression: Influenza Patient Disposition: Home Condition: Stable Instructions: Influenza (ED) Additional Instructions: Influenza positive You should avoid crowds until you are fever free for 24 hours without the use of fever reducing medications, or the symptoms are improved Rest. Drink plenty of fluids. Tylenol 1000mg every 8 hours as needed for pain/fever Recommend Flonase spray and Zyrtec (or Claritin/Nani) for sinus pressure/congestion over the counter Cough syrup may cause drowsiness; avoid driving or take it at night time. Steroid can raise blood sugar levels temporarily. Use albuterol inhaler as needed for shortness of breath/wheezing Follow up with your primary care provider as needed in 1 week Go to the ER for worsening symptoms or concerns Patient Language: [place] Prescriptions: New prednisone 50 mg tablet 50 mg PO DAILY Qty: 5 0RF albuterol sulfate 90 mcg/actuation HFA aerosol inhaler 2 inh inhalation QID PRN (Reason: shortness of breath or wheezing) Qty: 8.5 0RF No Action (DME) pen needle, diabetic [BD Ultra-Fine Short Pen Needle] 31 gauge x 5/16 needle See Rx Instructions .ROUTE .MEDSUPPLY Qty: 1200 Rx Instructions: As directed insulin degludec [Tresiba FlexTouch U-100] 100 unit/mL (3 mL) insulin pen 10 unit subcut DAILY Qty: 15 1RF aripiprazole [Abilify] 5 mg tablet 10 mg PO QHS Qty: 180 1RF atorvastatin 40 mg tablet 40 mg PO DAILY Qty: 90 3RF metformin 1,000 mg tablet 1,000 mg PO .E12hr Qty: 180 3RF (DME) Dexcom G7 Sensor Device See Rx Instructions .Route Qty: 9 3RF Rx Instructions: As directed (DME) blood-glucose meter [Blood Glucose Monitoring] Kit See Rx Instructions .ROUTE .MEDSUPPLY Qty: 1 3RF Rx Instructions: As directed venlafaxine 75 mg capsule,extended release 24hr 225 mg PO DAILY Qty: 270 3RF clonazepam 1 mg tablet 1 mg PO QHS Qty: 90 3RF Follow-up/Referrals: Jaylan Dean MD [Primary Care Provider, Family Practice] Stand Alone Forms: Work/School Release IP
[2025-04-30 14:47] LABS: EDCOVIDSCREEN Negative (Negative); EDINFLUASCREEN Negative (Negative); EDINFLUBSCREEN Negative (Negative)
== END 2025-04-30 14:48 | disposition home or self-care (01) ==
PROVIDERS: Emergency Provider Nurse Practitioner Family; PCP Family Medicine
DX: J11.1 Influenza due to unidentified influenza virus with other respiratory manifestations (principal); F17.210 Nicotine dependence, cigarettes, uncomplicated; Z20.822 Contact with and (suspected) exposure to COVID-19
CPT/HCPCS: 87426; 87804; 99213; G0463